=== PATIENT | female | born 1970 | race Caucasian/White ===

== ENCOUNTER → 2018-05-13 09:52 | Outpatient (CLI) | payer MEDICARE, MEDICAID, SELFPAY ==
[2018-05-13 11:32] LABS: AST(SGOT) 12 U/L (15-37); Alanine Aminotransfer ALT/SGPT 20 U/L (13-56); Albumin, Serum 3.1 g/dL (3.2-5.0); Alkaline Phosphatase 86 U/L (45-117); Bilirubin, Direct 0.09 mg/dL (0.00-0.30); Cholesterol 129 mg/dL (200); Globulin 3.7 g/dL (2.2-4.2); High Density Lipoprotein 47 mg/dL; Protein, Total 6.8 g/dL (6.4-8.2); Triglycerides 148 mg/dL; Very Low Density Lipoprotein 30 mg/dL (5-40)
[2018-05-13 12:01] LABS: ALB/GLOB Ratio 0.9 RATIO (0.9-2.4); AST(SGOT) 14 U/L (15-37); Alanine Aminotransfer ALT/SGPT 17 U/L (13-56); Albumin, Serum 3.1 g/dL (3.2-5.0); Alkaline Phosphatase 82 U/L (45-117); Anion Gap 6 (5-15); BUN 26 mg/dL (7-18); BUN/Creat Ratio 16.8 RATIO (10-20); Calcium,Total 8.9 mg/dL (8.5-10.1); Chloride 104 mmol/L (98-107); Creatinine, Serum 1.55 mg/dL (0.55-1.02); EST Glomerular Filtration Rate 38 mL/min (>60); Est Glom Filt Rate - Afr Amer 46 mL/min (>60); Globulin 3.6 g/dL (2.2-4.2); Glucose 233 mg/dL (74-106); Protein, Total 6.7 g/dL (6.4-8.2); Sodium Level 136 mmol/L (136-145); Thyroid Stim Hormone (TSH) 2.44 uIU/mL (0.358-3.74)
[2018-05-15 10:07] LABS: Vitamin D,25 Hydroxy 25.9 ng/mL (29.95-100.01)
== END ==
PROVIDERS: Family Provider Family Medicine; PCP Family Medicine; Visit Provider Internal Medicine Cardiovascular Disease
DX: E10.319 Type 1 diabetes mellitus with unspecified diabetic retinopathy without macular edema (principal); E10.65 Type 1 diabetes mellitus with hyperglycemia; E78.5 Hyperlipidemia, unspecified; Z79.899 Other long term (current) drug therapy
CPT/HCPCS: 36415; 80053; 80061; 80076; 82306; 83036; 84443

== ENCOUNTER 2018-08-11 08:02 | Observation (INO) | payer MEDICARE, SELFPAY ==
[2018-08-11] VITALS (16 sets, daily range): BP systolic 128–155; BP diastolic 58–78; PULSE 77–96; RESP 16–23; TEMP 36.8–37; O2SAT 96–99; BMI 29.7; BMI 28.8
--- NOTE | 2018-08-11 08:09 | EKG12_ITS ---
Test Reason : CP Blood Pressure : / mmHG Vent. Rate : 089 BPM Atrial Rate : 089 BPM P-R Int : 136 ms QRS Dur : 082 ms QT Int : 346 ms P-R-T Axes : 082 -29 166 degrees QTc Int : 420 ms Normal sinus rhythm Possible Left atrial enlargement Possible Anterolateral infarct , age undetermined Abnormal ECG Confirmed by LALO VINCENT, ANGELA ([id number]), editor news ALEIDA RUBALCAVA ([id number]) on 08/14/2018 3:09:34 PM Referred By: Confirmed By:ANGELA MAY MD
--- NOTE | 2018-08-11 08:14 | ED.DCSUM_ITS ---
- ER Visit Summary Date of Service: 08/11/18 Chief Complaint: Chest pain History of Present Illness: The patient is a 47 F presents to the emergency department with intermittent chest pain. The patient's of the symptoms for the past 5 days. She states that last week, she was sweeping her floor. She began to have a mild ache over her left chest. She states it would hurt to touch. She states that has gone away, but she is begun to have a tightness under her left breast. She states it comes in waves. It is relieved with nitro. She states of the same pain that she has had before when she had her prior myocardial infarction. She denies any recent stress test. She denies any change in medications. She denies any recent travel. She denies shortness of breath at baseline. The patient is blind. She does have a history of diabetes. Physical Examination: Vital signs reviewed General: Well-nourished, well-developed Head: Normocephalic, atraumatic Eyes: extraocular muscles intact Neck, supple, no lymphadenopathy Heart: Regular rate and rhythm Respiratory: No distress, clear bilaterally Abdomen: Soft, nontender, nondistended, no peritoneal signs Back: Nontender Extremities: Nontender, no edema, no cords Skin: Normal color no rash Neuro: Alert and oriented, no focal or lateralizing deficits Test Results: [] Emergency Department Course and Treatment: EKG was obtained on patient arrival. There is no acute ischemic change. The old EKG I have to compare to was from STEMI in 2013. It obviously looks improved compared to that. Patient had Nitropaste placed on her chest. She has remained pain-free. She was given aspirin. Chest x-ray shows no evidence of volume overload. Her cardiac enzymes are normal. The patient did have an abnormal heart catheterization in 2014 which showed some distal stenosis that was thought to not be amenable to stenting. She had an abnormal stress test prior to this that led to the heart catheterization. I did discuss the patient with Dr. Coker who is going to see the patient in consultation to determine next best plan of care for cardiac risk stratification. Patient was discussed with the hospitalist will be admitted. Treatment Plan: [] Disposition: Admission Impression: 1. Chest pain with history of coronary vascular disease This note was generated with [employer] software. It may contain incorrect words, spelling, and punctuation that were not noted in review of the chart prior to signing ED Disposition - Plan for ED Patient: Chief Complaint: Chest Pain Referrals: Joni Campo MD [Primary Care Provider] -
[2018-08-11] MEDS: Nitroglycerin Oint 1 INCH PACKET TRANSDERM. (08:18)
[2018-08-11] MEDS: Aspirin 81 MG TAB.CHEW 324 MG PO (08:19)
[2018-08-11 08:27] LABS: Absolute Lymphocyte Count 2.15 X10^3/ul (0.83-4.51); Absolute Neutrophil Count 5.1 X10^3/uL (2.0-7.7); Basophil# 0.06 X10^3/uL; Basophil% 0.7 % (0-1); Eosinophil# 0.14 X10^3/uL; Eosinophils% 1.7 % (0-5); Hematocrit 32.5 % (37-47); Hemoglobin 10.3 g/dl (12.0-15.0); Lymphocyte # 2.15 X10^3/ul (4.0); Lymphocyte % 25.7 % (19-41); Mean Corp Hgb Conc 31.7 g/gl (32-36); Mean Corpuscular Hgb 25.1 pg (27.0-32.0); Mean Corpuscular Volume 79.3 fL (81-99); Mean Platelet Vol. 11.3 fl (6.2-12.0); Monocyte# 0.91 X10^3/uL; Monocyte% 10.9 % (0-10); Neutrophil # 5.09 X10^3/uL (2.7-7.7); Neutrophil % 60.9 % (47-70); POSITIVE COUNT NO; POSITIVE DIFFERENTIAL NO; POSITIVE MORPHOLOGY NO; Platelet Count 271 K/mm3 (150-450); RBC Distribution Width CV 15.6 % (11.6-14.6); RBC Distribution Width SD 44.6 fl (35.1-43.9); White Blood Count 8.4 K/mm3 (4.4-11.0)
--- NOTE | 2018-08-11 08:30 | RAD_ITS ---
STUDY: X-RAY CHEST REASON FOR EXAM: Female, 47 years old. Chest pain. TECHNIQUE: Single AP portable view of the chest. COMPARISON: Comparison is made with prior study dated February 17, 2015. FINDINGS: EKG electrodes are seen. The lungs are clear and expanded. There is no demonstrated pleural abnormality. Normal size heart. Normal mediastinum and michael. Normal visualized pulmonary arteries. Normal visualized aortic arch and descending thoracic aorta. Normal visualized thoracic spine. Normal visualized ribs, clavicles, and shoulders. There is no demonstrated abnormality of the visualized soft tissue structures of the upper abdomen. RAD/Chest 1 View (Portable) IMPRESSION: Normal x-ray examination of the chest. Electronically Signed: Akash Sarabia MD at 8:59 EDT Tel [phone], Service support ,
[2018-08-11 08:39] LABS: BUN 24 mg/dL (7-18); Creatinine, Serum 1.66 mg/dL (0.55-1.02); EST Glomerular Filtration Rate 35 mL/min (>60); Estimated Creatinine Clearance 41.81 ml/min; Glucose 171 mg/dL (74-106)
[2018-08-11 08:40] LABS: Anion Gap 9 (5-15); BUN/Creat Ratio 14.5 RATIO (10-20); Calcium,Total 8.6 mg/dL (8.5-10.1); Chloride 108 mmol/L (98-107); Est Glom Filt Rate - Afr Amer 42 mL/min (>60); Sodium Level 141 mmol/L (136-145)
--- NOTE | 2018-08-11 09:09 | NURSING ---
DENZELU OBS SHAHBAZ LANDIN
--- NOTE | 2018-08-11 09:59 | EKG12_ITS ---
Test Reason : CP Blood Pressure : / mmHG Vent. Rate : 095 BPM Atrial Rate : 095 BPM P-R Int : 136 ms QRS Dur : 084 ms QT Int : 362 ms P-R-T Axes : 034 -18 045 degrees QTc Int : 454 ms Normal sinus rhythm Cannot rule out Anterior infarct , age undetermined Abnormal ECG Confirmed by LALO VINCENT, ANGELA ([id number]), design editor ALEIDA RUBALCAVA ([id number]) on 08/14/2018 3:54:09 PM Referred By: MUSHTAQ Confirmed By:ANGELA MAY MD
--- NOTE | 2018-08-11 11:24 | PCM.CONS.C ---
Reason for Consult Date of Consultation: 08/11/18 Reason for Consultation: Chest discomfort History of Present Illness: LAURA FIGUEROA, is a 47 F who presents to the emergency room with complaints of left-sided chest pain. She said that she had been active with sweeping the floor and she started developing chest discomfort which has been going on for a few days. She describes as a heaviness not associated with any dizziness or diaphoresis no near syncope. She presented to the emergency room she was evaluated EKG was noted to be fairly normal. Since being admitted she has not had any further chest discomfort. She was last seen by her primary zone supervisor firearms a few months ago. Her last transthoracic echocardiogram was performed on 02/14/2015. At that time her LV was normal with an LVEF of 65% with trivial MR, TR, and a trivial pericardial effusion with no tamponade physiology. Her estimated RV systolic pressure was 24 mmHg. He had decreased diastolic compliance. She underwent a pharmacologic stress nuclear imaging study that same day. There were concerns of myocardial ischemia involving the inferior apical and lateral apical segments. Her gated LVEF was 78%. She underwent a diagnostic cardiac catheterization on 02/19/2015 [facility]. A left ventriculogram was not performed secondary to decreased renal function/chronic renal insufficiency. The left main coronary artery was normal. The LAD had a distal apical-very small caliber vessel-with the appearance of 85% appearing stenosis, the LCx had minimal luminal irregularities, the RCA had a proximal to mid stented segment which was patent with the appearance of 25% distal in-stent appearing stenosis in the right AV segment had minimal luminal irregularities in the right PDA had mid 25% stenosis. There was a very small caliber side branch demonstrating proximal and mid subtotal occlusion. The recommendation was for continued medical management. Her previous PTCA/stent was performed at [facility] on 01/23/2014. At that time she had a report of successful stenting of an 80% mid RCA lesion with a drug-eluting stent and successful angioplasty of a 90% ostial stenosis in the proximal PDA. At the present time she states she is feeling well. She is not complaining of angina pectoris. She has had no ongoing episodes of CHF or pulmonary edema. There has been no issues with respect to episodes of palpitations. There has been no near syncope or syncope. She states she is doing well. Past Medical History Allergies/Adverse Reactions: Allergies adhesive tape Allergy (Severe, Verified 08/11/18 08:21) Unknown ephedrine [Ephedrine] Allergy (Verified 08/11/18 08:21) Other Home Medications: Ambulatory Orders Medication Instructions Recorded Aspirin [Aspirin, Baby] 81 mg PO DAILY@0800 02/18/15 Atorvastatin Calcium [Lipitor] 80 mg PO QHS 02/18/15 Colchicine 0.6 mg PO X1 PRN 02/18/15 Glucagon 0.5 mg IM X1 PRN 02/18/15 Grape Seed Extract [Grape Seed] 25 mg PO DAILY 02/18/15 Levothyroxine Sodium [Levoxyl] 112 mcg PO DAILY 02/18/15 Magnesium 500 mg PO DAILY 02/18/15 Nitroglycerin [Nitrostat] 0.4 mg SUBLINGUAL Q5M PRN 02/18/15 Norethindrone [Nor-Q-D] 1 tab PO DAILY 02/18/15 insulin aspart U-100 100 unit/mL See Label Instructions SC TID ml 12/12/17 subcutaneous solution linagliptin 5 mg tablet 5 mg PO DAILY 12/12/17 clopidogrel 75 mg tablet 75 mg PO DAILY #90 tab 03/28/18 lisinopril 2.5 mg tablet 2.5 mg PO DAILY #90 tab 05/10/18 carvedilol 6.25 mg tablet 6.25 mg PO BID #180 tab 06/27/18 Cholecalciferol (VIT D3) [Vitamin 1,000 unit PO DAILY 08/11/18 D] Insulin Degludec [Tresiba 40 unit SQ DAILY 08/11/18 Flextouch U-200] Past Medical History (Chronic Problems): Chronic Problems (Last Updated 05/23/18 @ 16:33 by Cinda Rosario) HTN (hypertension) (Chronic) BP 126/64 No change in regimen Smoking Status: Never smoker Alcohol: None Drugs: None Review of Systems - Review of Systems General: Denies: Fever, Night Sweats, Fatigue Cardiovascular: Reports: Chest Discomfort, Chest Discomfort at Rest. Denies: Shortness of Breath, Orthopnea, PND, Peripheral Edema, Palpitations, Lightheadedness, Dizziness, Near Syncope, Syncope Respiratory: Denies: Cough, Sputum Production, Hemoptysis Gastrointestinal: Denies: Hematemesis, Hematochezia, Melena Genitourinary: Denies: Dysuria, Hematuria Skin: Denies: Rash Subjectve: Pleasant lady in no apparent distress Objective: Vital Signs Temp Pulse Resp BP Pulse Ox 98.2 F 91 16 136/71 H 98 08/11/18 10:05 08/11/18 11:15 08/11/18 10:05 08/11/18 10:05 08/11/18 10:05 Oxygen Delivery Method Room Air Weight: 189 lb 9.561 oz Body Mass Index (BMI) 28.8 General: Awake, Alert, Oriented x 3 HEENT: PERRL, EOMI, Sclera Non Icteric Neck: Supple, Good ROM, No Lymph Node Enlargement Lungs: Clear to auscultation Cardiovascular: Regular Rhythm, Normal S1, Normal S2, No Murmurs, No Rubs, No Gallops Vascular: No Carotid Bruits, Normal Femoral Pulses, Normal Radial Pulses, Normal Dorsalis Pedal Pulse, Normal Posterior Tibial Pulses Abdomen: Bowel Sounds Present, Soft, Non Tender, No HSM, No Organomegaly Extremities: No Cyanosis, No Clubbing, No edema Neurological: No Focal Motor or Sensory Deficit Rhythm: EKG: Normal sinus rhythm rate of 95 bpm and no acute changes Assessment/Plan 1. Chest pain. Ms. Pepper presents with recurrent chest discomfort. She has had previously abnormal stress test and she feels that this chest pain was similar to what she had in the past. Due to her previous abnormal stress test it is felt that repeating the stress test may generate another abnormality which may require that she undergo a repeat cardiac catheterization. After discussion with the patient was therefore felt that we should probably proceed with cardiac catheterization to reassess her coronary anatomy and depending on the findings further recommendations will be made. The patient is in agreement with the above will be performed via the radial approach. Cardiac catheterization today demonstrated the following: Normal left main coronary artery. Left anterior descending artery with moderate mid segment stenosis of approximately 50% in comparison to the previous cardiac catheterization from 2015 the above is essentially unchanged. Left circumflex artery with first obtuse marginal branch which bifurcates with mild luminal irregularities, and AV groove branch and distal trifurcating artery noted to be free of significant stenosis. Dominant right coronary artery with a main vessel demonstrating minimal coronary artery disease. An acute marginal branch which is small has 2 areas of 80% stenosis which is unchanged in comparison to before 2. Hypertension Patient has a history of known hypertension. At this time I recommend that we continue with the current medical therapy with no changes. 3. Hyperlipidemia We will continue with aggressive risk factor modification and lowering her lipid profile. Thank you for allowing me to participate in the care of your patient. Please don't hesitate to call if any issues arise
[2018-08-11 11:41] LABS: Bedside Glucose 181 mg/dL (70-110)
[2018-08-11] MEDS: 0.9% Normal Saline 1,000 ML 15 ML IV (11:42)
[2018-08-11 12:26] LABS: Pregnancy, Serum, hCG Quali. NEGATIVE Negative (0-9 Nonpreg)
--- NOTE | 2018-08-11 14:25 | CL.D_ITS ---
Patient Name: LAURA FIGUEROA Study Date: 08/11/2018 Performing: Gamal Coker MD Ht: 68 inches 173 cm : 1970 Wt: 189.8 lbs 86 kg Age: 47 Gender: female BSA: 2 PROCEDURE(S) PERFORMED [id number] CLINICAL PROFILE AND INDICATIONS Heart Failure: None CONCLUSIONS Mooderate CAD bof LAD and RCA unchanged from 2015 RECOMMENDATIONS Medical therapy DESCRIPTION OF PROCEDURE The patient arrived to the procedure lab. The risks and benefits of the procedure as well as a full d escription of our services here and current unavailability of surgical backup were fully explained to the patient and/or their significant other prior to the catheterization. The Timeout was completed, verifying the correct patient and procedure. The patient's procedural site was prepped and draped in the usual fashion. Local anesthetic was given subcutaneously to right radial region with Lidocaine 2% . Using a modified Seldinger technique, arterial access was obtained via the right radial artery, a 6 Fr sheath was inserted. Right Coronary Artery selective angiography was then performed in [facility] using a 5 Fr. 4.0 Kake catheter.The arterial sheath was pulled and a TR Band was applied for he mostasis CORONARY ANGIOGRAPHY DOMINANCE: Right Dominant LEFT HEART ASSESSMENT Left Ventricular Ejection Fraction: Not assessed LEFT MAIN: Angiographically normal LEFT ANTERIOR DECENDING ARTERY: PROX LAD: Mild luminal irregularities MID LAD: Moderate luminal irregularities up to 50% DISTAL LAD: Mild luminal irregularities CIRCUMFLEX ARTERY: Mild luminal irregularities less than 30% RIGHT CORONARY ARTERY: Mild luminal irregularities ACUTE MARGINAL: sequential 90 pct stenosis COMPLICATIONS No Complications PROCEDURE MEDICATIONS Fentanyl 50 mcg IV Versed 1 mg IV Oxygen: 2 L/min via nasal cannula Heparin diluted in 23cc Heparinized saline. Patient given 10cc IA of this solution. 08/11/2018 12:41: 40 Verapamil 2.5mg, Ntg 100mcgs, 2000 units of Heparin diluted in 23cc Heparinized saline. Patient give n 10cc IA of this solution. 08/11/2018 12:41:40 IV Fluids: .9 NaCl increased to 150 ml/hr 08/11/2018 12:38:02 SUMMARY OF HEMODYNAMIC DATA Time AIR REST ECG 12:23:43 AO 127/64 (90) SA 12:43:34 Signed By Gamal Coker MD On 08/11/2018 14:24:21 Gamal Coker MD
--- NOTE | 2018-08-11 15:46 | PCM.HP.STD ---
History of Present Illness Date of Admission: 08/11/18 Chief Complaint: chest discomfort The patient is a 47 year old F with DM2, stage III CKD and CAD with h/o angioplasty and stents. Presented to the hospital with a few days h/o chest pain/discomfort on and off and which responded to nitroglycerine. There was no orthopnea or PND. No dizziness, nausea or vomiting. Cardiology has been consulted[] Past Medical History Past Medical History (Chronic Problems): Chronic Problems (Last Updated 05/23/18 @ 16:33 by Cinda Rosario) HTN (hypertension) (Chronic) BP 126/64 No change in regimen Medical History: Medical History (Last Updated 05/23/18 @ 16:33 by Cinda Rosario) Presence of stent in coronary artery (Acute) Onset Date: ~01/23/14 Z95.5 PTCA/MARCUS to mid RCA; angioplasty of prox PDA 01/23/[address] Glenn Merino at [facility] Atherosclerotic heart disease of [place] coronary artery without angina pectoris (Acute) I25.10 angioplasty to LAD; no stent @ [facility] 11/08/13; PTCA/MARCUS to mid RCA; angioplasty of prox PDA @ [facility] 01/23/14 Pericarditis (Acute) I31.9 ST elevation myocardial infarction (STEMI) of anterior wall (Acute) I21.09 Chronic kidney disease (Acute) N18.9 Hypothyroidism (Acute) E03.9 Hyperlipidemia (Acute) E78.5 Controlled. No change. 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 Allergies adhesive tape Allergy (Severe, Verified 08/11/18 08:21) Unknown ephedrine [Ephedrine] Allergy (Verified 08/11/18 08:21) Other Home Medications: Ambulatory Orders Medication Instructions Recorded Aspirin [Aspirin, Baby] 81 mg PO DAILY@0800 02/18/15 Atorvastatin Calcium [Lipitor] 80 mg PO QHS 02/18/15 Colchicine 0.6 mg PO X1 PRN 02/18/15 Glucagon 0.5 mg IM X1 PRN 02/18/15 Grape Seed Extract [Grape Seed] 25 mg PO DAILY 02/18/15 Levothyroxine Sodium [Levoxyl] 112 mcg PO DAILY 02/18/15 Magnesium 500 mg PO DAILY 02/18/15 Nitroglycerin [Nitrostat] 0.4 mg SUBLINGUAL Q5M PRN 02/18/15 Norethindrone [Nor-Q-D] 1 tab PO DAILY 02/18/15 insulin aspart U-100 100 unit/mL See Label Instructions SC TID ml 12/12/17 subcutaneous solution linagliptin 5 mg tablet 5 mg PO DAILY 12/12/17 clopidogrel 75 mg tablet 75 mg PO DAILY #90 tab 03/28/18 lisinopril 2.5 mg tablet 2.5 mg PO DAILY #90 tab 05/10/18 carvedilol 6.25 mg tablet 6.25 mg PO BID #180 tab 06/27/18 Cholecalciferol (VIT D3) [Vitamin 1,000 unit PO DAILY 08/11/18 D] Insulin Degludec [Tresiba 40 unit SQ DAILY 08/11/18 Flextouch U-200] Surgical History: Surgical History (Last Reviewed 12/21/17 @ 16:26 by Wanda Schaffer) H/O angioplasty Z98.62 H/O breast augmentation Z98.82 H/O vitrectomy Z98.890 H/O: Z98.891 History of coronary angioplasty Onset Date: ~11/08/13 Z98.61 angioplasty to LAD; no stent @ [facility] 11/08/13 History of left heart catheterization Z98.890 History of tonsillectomy Z98.890, Z90.89 S/P appendectomy Z90.49 Smoking Status: Never smoker Alcohol: None Drugs: None Review of Systems Eyes: Reports: - - blindness HEENT: Denies: Difficulty Hearing Cardiovascular: Reports: Chest Pain. Denies: Edema Respiratory: Denies: Cough Gastrointestinal: Denies: Abdominal Pain Neurological: Denies: Balance problems Hematologic/ Lymphatic: Denies: Petechiae VTE Information - Inpt Only VTE Present on Admission: Yes - Physical Exam General: Alert, Oriented x3, Cooperative, No apparent distress, Well developed, Well nourished HEENT: Atraumatic Oral: Moist Mucosa Neck: Supple Lungs: - - non labored Abdomen: - - MWR Extremities: No edema Skin: No rashes Neurological: Cranial nerves II-XII grossly intact, Neuro grossly intact Psych/Mental Status: Normal Affect, Appropriate, Alert and oriented to time, place, person, mood and affect Vital Signs Temp Pulse Resp BP Pulse Ox 98.3 F 83 16 141/69 H 99 08/11/18 15:10 08/11/18 15:40 08/11/18 15:40 08/11/18 15:40 08/11/18 15:40 Oxygen Delivery Method Room Air Weight: 86 kg Body Mass Index (BMI) 28.8 POC Glucose 08/11/18 11:27 POC Glucose 181 H Assessment/Plan All Active Problems (Last Updated 05/23/18 @ 16:33 by Cinda Rosario) Presence of stent in coronary artery (Acute ~01/23/14) Atherosclerotic heart disease of [place] coronary artery without angina pectoris (Acute) Pericarditis (Acute) ST elevation myocardial infarction (STEMI) of anterior wall (Acute) Chronic kidney disease (Acute) Hypothyroidism (Acute) Hyperlipidemia (Acute) Diabetes type 1, controlled (Acute) 1. Chest pain. Possible unstable angina. Cardiology has been consulted and plans to take patient for left hear cath. Pain free at this time and will continue on tele 2. DM2. Will resume home regimen of insulin. Will give basal insulin now but hold Humalog until patient starts and is allowed to eat 3. Stage III CKD. 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
--- NOTE | 2018-08-11 15:51 | HP.PCM_ITS ---
History of Present Illness Date of Admission: 08/11/18 Chief Complaint: chest discomfort The patient is a 47 year old F with DM2, stage III CKD and CAD with h/o angioplasty and stents. Presented to the hospital with a few days h/o chest pain /discomfort on and off and which responded to nitroglycerine. There was no orthopnea or PND. No dizziness, nausea or vomiting. Cardiology has been consulted[] Past Medical History Past Medical History (Chronic Problems): Chronic Problems (Last Updated 05/23/18 @ 16:33 by Cinda Rosario) HTN (hypertension) (Chronic) BP 126/64 No change in regimen Medical History: Medical History (Last Updated 05/23/18 @ 16:33 by Cinda Rosario) Presence of stent in coronary artery (Acute) Onset Date: ~01/23/14 Z95.5 PTCA/MARCUS to mid RCA; angioplasty of prox PDA 01/23/[address] Glenn Merino at [facility] Atherosclerotic heart disease of pauma coronary artery without angina pectoris (Acute) I25.10 angioplasty to LAD; no stent @ [facility] 11/08/13; PTCA/MARCUS to mid RCA; angioplasty of prox PDA @ [facility] 01/23/14 Pericarditis (Acute) I31.9 ST elevation myocardial infarction (STEMI) of anterior wall (Acute) I21.09 Chronic kidney disease (Acute) N18.9 Hypothyroidism (Acute) E03.9 Hyperlipidemia (Acute) E78.5 Controlled. No change. 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 Allergies adhesive tape Allergy (Severe, Verified 08/11/18 08:21) Unknown ephedrine [Ephedrine] Allergy (Verified 08/11/18 08:21) Other Home Medications: Ambulatory Orders Medication Instructions Recorded Aspirin [Aspirin, Baby] 81 mg PO DAILY@0800 02/18/15 Atorvastatin Calcium [Lipitor] 80 mg PO QHS 02/18/15 Colchicine 0.6 mg PO X1 PRN 02/18/15 Glucagon 0.5 mg IM X1 PRN 02/18/15 Grape Seed Extract [Grape Seed] 25 mg PO DAILY 02/18/15 Levothyroxine Sodium [Levoxyl] 112 mcg PO DAILY 02/18/15 Magnesium 500 mg PO DAILY 02/18/15 Nitroglycerin [Nitrostat] 0.4 mg SUBLINGUAL Q5M PRN 02/18/15 Norethindrone [Nor-Q-D] 1 tab PO DAILY 02/18/15 insulin aspart U-100 100 unit/mL See Label Instructions SC TID ml 12/12/17 subcutaneous solution linagliptin 5 mg tablet 5 mg PO DAILY 12/12/17 clopidogrel 75 mg tablet 75 mg PO DAILY #90 tab 03/28/18 lisinopril 2.5 mg tablet 2.5 mg PO DAILY #90 tab 05/10/18 carvedilol 6.25 mg tablet 6.25 mg PO BID #180 tab 06/27/18 Cholecalciferol (VIT D3) [Vitamin 1,000 unit PO DAILY 08/11/18 D] Insulin Degludec [Tresiba 40 unit SQ DAILY 08/11/18 Flextouch U-200] Surgical History: Surgical History (Last Reviewed 12/21/17 @ 16:26 by Wanda Schaffer) H/O angioplasty Z98.62 H/O breast augmentation Z98.82 H/O vitrectomy Z98.890 H/O: Z98.891 History of coronary angioplasty Onset Date: ~11/08/13 Z98.61 angioplasty to LAD; no stent @ [facility] 11/08/13 History of left heart catheterization Z98.890 History of tonsillectomy Z98.890, Z90.89 S/P appendectomy Z90.49 Smoking Status: Never smoker Alcohol: None Drugs: None Review of Systems Eyes: Reports: - - blindness HEENT: Denies: Difficulty Hearing Cardiovascular: Reports: Chest Pain. Denies: Edema Respiratory: Denies: Cough Gastrointestinal: Denies: Abdominal Pain Neurological: Denies: Balance problems Hematologic/ Lymphatic: Denies: Petechiae VTE Information - Inpt Only VTE Present on Admission: Yes - Physical Exam General: Alert, Oriented x3, Cooperative, No apparent distress, Well developed, Well nourished HEENT: Atraumatic Oral: Moist Mucosa Neck: Supple Lungs: - - non labored Abdomen: - - MWR Extremities: No edema Skin: No rashes Neurological: Cranial nerves II-XII grossly intact, Neuro grossly intact Psych/Mental Status: Normal Affect, Appropriate, Alert and oriented to time, place, person, mood and affect Vital Signs Temp Pulse Resp BP Pulse Ox 98.3 F 83 16 141/69 H 99 08/11/18 15:10 08/11/18 15:40 08/11/18 15:40 08/11/18 15:40 08/11/18 15:40 Oxygen Delivery Method Room Air Weight: 86 kg Body Mass Index (BMI) 28.8 POC Glucose 08/11/18 11:27 POC Glucose 181 H Assessment/Plan All Active Problems (Last Updated 05/23/18 @ 16:33 by Cinda Rosario) Presence of stent in coronary artery (Acute ~01/23/14) Atherosclerotic heart disease of pauma coronary artery without angina pectoris (Acute) Pericarditis (Acute) ST elevation myocardial infarction (STEMI) of anterior wall (Acute) Chronic kidney disease (Acute) Hypothyroidism (Acute) Hyperlipidemia (Acute) Diabetes type 1, controlled (Acute) 1. Chest pain. Possible unstable angina. Cardiology has been consulted and plans to take patient for left hear cath. Pain free at this time and will continue on tele 2. DM2. Will resume home regimen of insulin. Will give basal insulin now but hold Humalog until patient starts and is allowed to eat 3. Stage III CKD. 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
--- NOTE | 2018-08-11 15:58 | DCINST_ITS ---
- Discharge Diagnoses Current Active Problems: chest pain Discharge Activity: Return to Normal Activity, No Restrictions Allergies/Adverse Reactions: Allergies adhesive tape Allergy (Severe, Verified 08/11/18 08:21) Unknown ephedrine [Ephedrine] Allergy (Verified 08/11/18 08:21) Other Medications to take at Discharge Aspirin [Aspirin, Baby] 81 mg PO DAILY@0800 02/18/15 Atorvastatin Calcium [Lipitor] 80 mg PO QHS 02/18/15 Colchicine 0.6 mg PO X1 PRN 02/18/15 Glucagon 0.5 mg IM X1 PRN 02/18/15 Grape Seed Extract [Grape Seed] 25 mg PO DAILY 02/18/15 Levothyroxine Sodium [Levoxyl] 112 mcg PO DAILY 02/18/15 Magnesium 500 mg PO DAILY 02/18/15 Nitroglycerin [Nitrostat] 0.4 mg SUBLINGUAL Q5M PRN 02/18/15 Norethindrone [Nor-Q-D] 1 tab PO DAILY 02/18/15 insulin aspart U-100 100 unit/mL subcutaneous solution See Label Instructions SC TID ml 12/12/17 linagliptin 5 mg tablet 5 mg PO DAILY 12/12/17 clopidogrel 75 mg tablet 75 mg PO DAILY #90 tab 03/28/18 lisinopril 2.5 mg tablet 2.5 mg PO DAILY #90 tab 05/10/18 carvedilol 6.25 mg tablet 6.25 mg PO BID #180 tab 06/27/18 Cholecalciferol (VIT D3) [Vitamin D] 1,000 unit PO DAILY 08/11/18 Insulin Degludec [Tresiba Flextouch U-200] 40 unit SQ DAILY 08/11/18 Primary Care Physician: Joni Campo MD [Primary Care Provider] - Test Results: Test results from this visit will be discussed in further detail at your follow- up appointment, if applicable. Proposed Discharge Date: 08/11/18
--- NOTE | 2018-08-11 16:01 | PCM.DC.SUM ---
Discharge Date and Diagnosis Date of Admission: 08/11/18 Date of Discharge: 08/11/18 - Primary Discharge Diagnosis Chest pain - Secondary Discharge Diagnosis Chronic Problems (Last Updated 05/23/18 @ 16:33 by Cinda Rosario) HTN (hypertension) (Chronic) BP 126/64 No change in regimen Stage III CKD CAD s/p stents DM2 with microvascular complications Hospital Course and Treatment Operations: None Procedures: Cardiac catheterization Summary of Care Provided: The patient is a 47 year old F with h/o CAD who was admitted on account of recurrent chest pain and chest discomfort. Suspected to be having unstable angina and so cardiology was consulted. Given very high pretest probability for ACS patient underwent left heart catheterization by her automation control integrator Dr. Coker. Thankfully this only revealed stable moderate degree CAD in the LAD and RCA similar to previous [facility] in 2015 and patent intracoronary stents. cardiology has given the ok for patient to be discharged. Newly added medicine is Isosorbide mononitrate [] Discharge Diet: 2200 Calorie Control Diet Discharge Activity: Return to Normal Activity, No Restrictions Home Medications: Medications to take at Discharge Aspirin [Aspirin, Baby] 81 mg PO DAILY@0800 02/18/15 Atorvastatin Calcium [Lipitor] 80 mg PO QHS 02/18/15 Colchicine 0.6 mg PO X1 PRN 02/18/15 Glucagon 0.5 mg IM X1 PRN 02/18/15 Grape Seed Extract [Grape Seed] 25 mg PO DAILY 02/18/15 Levothyroxine Sodium [Levoxyl] 112 mcg PO DAILY 02/18/15 Magnesium 500 mg PO DAILY 02/18/15 Nitroglycerin [Nitrostat] 0.4 mg SUBLINGUAL Q5M PRN 02/18/15 Norethindrone [Nor-Q-D] 1 tab PO DAILY 02/18/15 insulin aspart U-100 100 unit/mL subcutaneous solution See Label Instructions SC TID ml 12/12/17 linagliptin 5 mg tablet 5 mg PO DAILY 12/12/17 clopidogrel 75 mg tablet 75 mg PO DAILY #90 tab 03/28/18 lisinopril 2.5 mg tablet 2.5 mg PO DAILY #90 tab 05/10/18 carvedilol 6.25 mg tablet 6.25 mg PO BID #180 tab 06/27/18 Cholecalciferol (VIT D3) [Vitamin D3] 1,000 unit PO DAILY 08/11/18 Insulin Degludec [Tresiba Flextouch U-200] 40 unit SQ DAILY 08/11/18 Isosorbide Mononitrate [Imdur] 30 mg PO DAILY 30 Days #30 tab 08/11/18 Following Prescrptions Were Given to Patient: Isosorbide Mononitrate [Imdur] 30 mg PO DAILY 30 Days #30 tab Primary Care Physician: Joni Campo MD [Primary Care Provider] - Disposition: Home Minutes spent on discharge:: 30 Patient Condition:: Good Medical Necessity - Tobacco Use Smoking Status: Never smoker Meaningful Use Info Meaningful Use Diagnoses (Choose all that apply): None applicable Code Visit OBSV E&M: 05010 Observation care discharge
--- NOTE | 2018-08-11 16:07 | DS.PCM_ITS ---
Discharge Date and Diagnosis Date of Admission: 08/11/18 Date of Discharge: 08/11/18 - Primary Discharge Diagnosis Chest pain - Secondary Discharge Diagnosis Chronic Problems (Last Updated 05/23/18 @ 16:33 by Cinda Rosario) HTN (hypertension) (Chronic) BP 126/64 No change in regimen Stage III CKD CAD s/p stents DM2 with microvascular complications Hospital Course and Treatment Operations: None Procedures: Cardiac catheterization Summary of Care Provided: The patient is a 47 year old F with h/o CAD who was admitted on account of recurrent chest pain and chest discomfort. Suspected to be having unstable angina and so cardiology was consulted. Given very high pretest probability for ACS patient underwent left heart catheterization by her chemical laboratory tester Dr. Coker. Thankfully this only revealed stable moderate degree CAD in the LAD and RCA similar to previous [facility] in 2015 and patent intracoronary stents. cardiology has given the ok for patient to be discharged. Newly added medicine is Isosorbide mononitrate [] Discharge Diet: 2200 Calorie Control Diet Discharge Activity: Return to Normal Activity, No Restrictions Home Medications: Medications to take at Discharge Aspirin [Aspirin, Baby] 81 mg PO DAILY@0800 02/18/15 Atorvastatin Calcium [Lipitor] 80 mg PO QHS 02/18/15 Colchicine 0.6 mg PO X1 PRN 02/18/15 Glucagon 0.5 mg IM X1 PRN 02/18/15 Grape Seed Extract [Grape Seed] 25 mg PO DAILY 02/18/15 Levothyroxine Sodium [Levoxyl] 112 mcg PO DAILY 02/18/15 Magnesium 500 mg PO DAILY 02/18/15 Nitroglycerin [Nitrostat] 0.4 mg SUBLINGUAL Q5M PRN 02/18/15 Norethindrone [Nor-Q-D] 1 tab PO DAILY 02/18/15 insulin aspart U-100 100 unit/mL subcutaneous solution See Label Instructions SC TID ml 12/12/17 linagliptin 5 mg tablet 5 mg PO DAILY 12/12/17 clopidogrel 75 mg tablet 75 mg PO DAILY #90 tab 03/28/18 lisinopril 2.5 mg tablet 2.5 mg PO DAILY #90 tab 05/10/18 carvedilol 6.25 mg tablet 6.25 mg PO BID #180 tab 06/27/18 Cholecalciferol (VIT D3) [Vitamin D3] 1,000 unit PO DAILY 08/11/18 Insulin Degludec [Tresiba Flextouch U-200] 40 unit SQ DAILY 08/11/18 Isosorbide Mononitrate [Imdur] 30 mg PO DAILY 30 Days #30 tab 08/11/18 Following Prescrptions Were Given to Patient: Isosorbide Mononitrate [Imdur] 30 mg PO DAILY 30 Days #30 tab Primary Care Physician: Joni Campo MD [Primary Care Provider] - Disposition: Home Minutes spent on discharge:: 30 Patient Condition:: Good Medical Necessity - Tobacco Use Smoking Status: Never smoker Meaningful Use Info Meaningful Use Diagnoses (Choose all that apply): None applicable Code Visit OBSV E&M: 87123 Observation care discharge
== END 2018-08-11 17:38 | disposition home or self-care (01) ==
LOC: ED 09:03 → PCU 09:32
PROVIDERS: Internal Medicine Cardiovascular Disease; Admitting Provider Internal Medicine; Emergency Provider Emergency Medicine; Family Provider Family Medicine; PCP Family Medicine; Visit Provider Internal Medicine
DX: R07.89 Other chest pain (principal); I10 Essential (primary) hypertension; E78.5 Hyperlipidemia, unspecified; I25.10 Atherosclerotic heart disease of native coronary artery without angina pectoris; E11.22 Type 2 diabetes mellitus with diabetic chronic kidney disease; I12.9 Hypertensive chronic kidney disease with stage 1 through stage 4 chronic kidney disease, or unspecified chronic kidney disease; N18.3 Chronic kidney disease, stage 3 (moderate); M06.9 Rheumatoid arthritis, unspecified; E11.319 Type 2 diabetes mellitus with unspecified diabetic retinopathy without macular edema; F41.9 Anxiety disorder, unspecified; Z79.899 Other long term (current) drug therapy; Z79.82 Long term (current) use of aspirin; Z79.4 Long term (current) use of insulin; Z95.5 Presence of coronary angioplasty implant and graft; R94.31 Abnormal electrocardiogram [ECG] [EKG]
CPT/HCPCS: 71045; 80048; 82962; 84484; 84703; 85025; 93005; 93454; 99152; 99153; 99218; 99282; J7030; Q9967; A4216; C1769; C1894; G0378

== ENCOUNTER → 2018-09-28 16:12 | Outpatient (CLI) | payer MEDICARE, SELFPAY ==
--- NOTE | 2018-09-28 16:13 | ECHOD_ITS ---
Reason For Study: MURMUR Procedure This was a 2D Doppler, Color Flow transthoracic echocardiogram. The exam was of poor technical quality due to poor acoustic windows. The study was technically difficult. Exam performed in department. Left Ventricle Normal LV size. Left ventricular systolic function is normal. The estimated ejection fraction is 70 %. There is evidence of diastolic dysfunction. No regional wall motion abnormalities noted. Right Ventricle Normal RV size. Normal systolic function. Atria Normal left atrium. Normal right atrium. No doppler evidence for ASD. Mitral Valve There is mild mitral annular calcification. Normal mitral valve. Trivial mitral valve insufficiency. Tricuspid Valve Normal tricuspid valve. Trivial tricuspid valve insufficiency. Right ventricular systolic pressure estimated to be 40 mmHg. Aortic Valve Trisinus/trileaflet aortic valve. Normal aortic valve. Pulmonic Valve The pulmonic valve is not well visualized. Trivial pulmonic valve insufficiency. Great Vessels Normal sized aortic root. Pericardium/Pleural No pericardial effusion. MMode/2D Measurements & Calculations LVIDd: 5.0 cm IVSd: 1.0 cm Ao root diam: 3.3 cm LVIDs: 3.1 cm LVPWd: 0.98 cm RVDd: 3.2 cm FS: 38.1 % LAV(MOD-bp): 56.8 ml EDV(MOD-sp4): 99.4 ml SV(MOD-sp4): 69.8 ml LAV(MOD-bp) Indexed: 28.4 ml/m2 ESV(MOD-sp4): 29.6 ml LAV(MOD-sp2): 63.1 ml EF(MOD-sp4): 70.2 % LAV(MOD-sp4): 50.0 ml LA A4 area: 18.3 cm2 LA dimension(2D): 4.0 cm RA A4 area: 13.5 cm2 Time Measurements MV dec time: 0.24 sec Doppler Measurements & Calculations MV E max chase: 135.4 cm/sec Lat Peak E' Chase: 7.2 cm/sec Med Peak E' Chase: 6.6 cm/sec MV A max chase: 129.0 cm/sec E/E' lat: 18.7 E/E' med: 20.4 MV E/A: 1.1 MV V2 max: 144.2 cm/sec Ao V2 max: 280.5 cm/sec LV V1 max: 162.5 cm/sec MV max P.3 mmHg Ao max P.5 mmHg LV V1 max P.6 mmHg MV V2 mean: 100.2 cm/sec Ao V2 mean: 210.5 cm/sec LV V1 mean P.9 mmHg MV mean P.4 mmHg Ao mean P.1 mmHg LV V1 mean: 115.7 cm/sec MV V2 VTI: 35.6 cm Ao V2 VTI: 59.8 cm LV V1 VTI: 33.7 cm PA V2 max: 139.8 cm/sec TR max chase: 303.6 cm/sec MV P1/2t-pr_phl: 77.5 msec TR max P.1 mmHg Interpretation Summary The study was technically difficult. Left ventricular systolic function is normal. The estimated ejection fraction is 70 %. There is mild mitral annular calcification. Trivial mitral valve insufficiency. Trivial tricuspid valve insufficiency. Trivial pulmonic valve insufficiency. Right ventricular systolic pressure estimated to be 40 mmHg. There is evidence of diastolic dysfunction. Ordering Physician: Sanford Dave Referring Physician: LINDSEY TRENT Performed By: Marina Felix, RDCS, RVT
== END ==
PROVIDERS: Family Provider Family Medicine; PCP Family Medicine; Referring Provider Internal Medicine Cardiovascular Disease; Visit Provider Internal Medicine Cardiovascular Disease
DX: I25.10 Atherosclerotic heart disease of native coronary artery without angina pectoris (principal)
CPT/HCPCS: 93306

== ENCOUNTER → 2018-10-03 12:15 | Outpatient (CLI) | payer MEDICARE, SELFPAY ==
--- NOTE | 2018-10-03 12:20 | CT_ITS ---
STUDY: CT BRAIN WITH AND WITHOUT CONTRAST REASON FOR EXAM: Female, 47 years old. Blindness. Acute vertigo. RADIATION DOSAGE (If Supplied By Facility): CTDIvol = ( 60.81 ) mGy, DLP = ( 2172.41 ) mGycm TECHNIQUE: Transaxial CT imaging of the brain was performed pre and post contrast administration. The examination was performed with intravenous administration of 50 ml of Isovue 370 contrast material. Individualized dose optimization techniques were used for this CT. COMPARISON: None. FINDINGS: Normal soft tissue structures. Normal calvarium. Dense soft tissue changes in both globes. Normal size ventricles and extra-axial spaces for the patient's age. Normal white matter tracts of the cerebral hemispheres. Normal basal ganglia and thalami. Normal brainstem. Normal cerebellum. There is no intracranial hemorrhage. There are no findings of an acute ischemic infarction. Normal visualized paranasal sinuses. CT/Brain/Head W/WO Contrast IMPRESSION: No acute abnormality is seen. Dense soft tissue changes in both globes. Electronically Signed: Akash Sarabia MD at 13:39 EST Tel [phone], Service support ,
== END ==
PROVIDERS: Family Provider Family Medicine; PCP Family Medicine; Referring Provider Otolaryngology; Visit Provider Otolaryngology
DX: R42 Dizziness and giddiness (principal)
CPT/HCPCS: 70470; Q9967; A4216

== ENCOUNTER 2018-11-01 18:00 | Outpatient (RCR) | payer MEDICARE, SELFPAY ==
--- NOTE | 2018-10-18 18:12 | HP.PTEVAL ---
Patient's Visit Information LAURA FIGUEROA is a 47 year old F referred to Physical Therapy by Glenn Wiseman with a diagnosis of . Date of Evaluation: Physical Therapist: Isadora Tomlinson - Anticipated Interventions Thank you for the opportunity to evaluate your patient. For Medicare and Medicare HMO plans, please review the plan of care and approve it. It will need to be FAXED BACK to us at [phone] for Medicare purposes. Please let me know if there are questions or concerns regarding this plan of care. Physician Signature: Date:
--- NOTE | 2018-10-18 18:23 | HP.PTEVAL_ITS ---
Patient's Visit Information LAURA FIGUEROA is a 47 year old F referred to Physical Therapy by Glenn Wiseman with a diagnosis of vestibular neurtitis. Date of Evaluation: 10/18/18 Physical Therapist: Isadora Tomlinson - Visit Plan Frequency: 2-3x /Week Duration: 6 Weeks Plan: 2X-3X/ week for 6 weeks for Head movements, vestibular exercises, balance exercises with HEP - Subjective Subjective: Pt reports that TuesdayOct 02 woke up and went downstairs and then was standing at counter was going back and caught self and kept getting worse. Then Tuesday she got up and was so nauseated and dizzy and could not walk. Pt reports that it was so bad that she had to put her head down on her husbands back cause the spinning was so bad to walk into the clinic. He diagnosed with vestibular neuritis and was in bed for the whole week. She thinks she is progressively getting better. Current sympmtoms now if she walks slow with no sudden movements she is ok. She can do a couple of steps ok but needs help to walk longer. She is on zofran for the nausea. said that this could last for weeks. Dr was going to give steroids but did not want to mess up her blood sugars. Pt has a ROSA all the time and it is in the front of her head and at the back of her head. No neck problems in the past...she has been seeing a chiropractor. She is sleeping ok as long as lay on the L side....if lays on the R side she gets really dizzy. She is continously dizzy when laying on R side until she moves. They did CT scan and that came out normal. Pt reports that too much sound bothers her like from music and TV or base etc. - Objective Smooth pursuit horizontal for approx 15 seconds with head pressure. Smooth pursuit vertigo X 1 time moving eyes toward ceiling got instant head pressure. c-spine AROM: rotation B 75%, flexion 100%, ext 75%, SB B 75%. Rotation horizontal head 30 degrees each direction X 5 times each direction (increase dizziness and head pressure). Vertical head movement: pt was able to go into flex/extension once and was to dizzy to continue. standing balance with feet slightly apart...pt was able to stand there for 1 min but with increase sway and increase might tactile cues for correction of balance. Gait: pt has to walk back to the clinic holding onto therapists arm with min A by thereapist and increase veering by the pt into the therapist. - Goals Goal 1:: Be able to walk without assist from therapist and without veering Goal Time Frame: 4-6 Weeks Goal 2:: Be able to complete HEP without difficulty Goal Time Frame: 4-6 Weeks Goal 3:: Be able to walk with head turns without having lob or complaints of dizziness Goal Time Frame: 4-6 Weeks - Rehabilitation Potential Rehabilitation Potential: Good - Anticipated Interventions Patient/Client Instruction: Educate patient on: Plan of Care For the Purpose of:: To improve muscle performance and motor function, To improve ability to perform ADL's, To increase tolerance to activity/condition/position, To improve performance and independence with ADL's, To decrease level of supervision to perform tasks, To improve ability of physical actions for home/community/work/leisure, To improve gait and locomotor functions, To improve endurance, To improve safety with gait Therapeutic Exercise to Include: Strength training, Endurance training, Balance training, Body mechanics, Postural training, Gait and locomotor training, Neuromotor development, Active ROM For the Purpose of:: To improve muscle performance and motor function, To improve ability to perform ADL's, To increase tolerance to activity/condition/position, To improve performance and independence with ADL's, To decrease level of supervision to perform tasks, To improve ability of physical actions for home/community/work/leisure, To improve gait and locomotor functions, To improve endurance, To improve balance, To improve safety with gait Functional Training to Include: Gait training For the Purpose of:: To improve gait and locomotor functions, To improve safety with gait Thank you for the opportunity to evaluate your patient. For Medicare and Medicare HMO plans, please review the plan of care and approve it. It will need to be FAXED BACK to us at [phone] for Medicare purposes. Please let me know if there are questions or concerns regarding this plan of care. Physician Signature: Date:
--- NOTE | 2019-03-02 09:12 | HP.PT.NRP ---
HP - Discharge Summary (1) - Patient Information LAURA FIGUEROA was seen in my office for initial evaluation on 10/18/18. The following Plan of Care was established for this patient: Initial Frequency: 2-3x /Week Initial Duration: 6 Weeks - Anticipated Interventions Patient/Client Instruction: Educate patient on: Plan of Care For the Purpose of:: To improve muscle performance and motor function, To improve ability to perform ADL's, To increase tolerance to activity/condition/position, To improve performance and independence with ADL's, To decrease level of supervision to perform tasks, To improve ability of physical actions for home/community/work/leisure, To improve gait and locomotor functions, To improve endurance, To improve safety with gait Therapeutic Exercise to Include: Strength training, Endurance training, Balance training, Body mechanics, Postural training, Gait and locomotor training, Neuromotor development, Active ROM For the Purpose of:: To improve muscle performance and motor function, To improve ability to perform ADL's, To increase tolerance to activity/condition/position, To improve performance and independence with ADL's, To decrease level of supervision to perform tasks, To improve ability of physical actions for home/community/work/leisure, To improve gait and locomotor functions, To improve endurance, To improve balance, To improve safety with gait Functional Training to Include: Gait training For the Purpose of:: To improve gait and locomotor functions, To improve safety with gait This patient was last seen in our office 11/08/18. Pertinent comments regarding their Physical therapy will appear below: [facility] PT as pt cancelled her last appointment and did not reschedule At this point I will be discontinuing this patient from physical therapy. I would be happy to see this patient again in the future if found appropriate by the physician. Thank you! Isadora Tomlinson, MPT
== END 2018-11-01 19:00 | disposition home or self-care (01) ==
LOC: PT 18:00
PROVIDERS: Family Provider Family Medicine; PCP Family Medicine; Referring Provider Otolaryngology; Visit Provider Otolaryngology
DX: H93.3X9 Disorders of unspecified acoustic nerve (principal)
CPT/HCPCS: 97110; 97162; 97530

== ENCOUNTER → 2018-11-07 11:56 | Outpatient (CLI) | payer MEDICARE, SELFPAY ==
[2018-09-13 15:19] VITALS: BMI 28.6
--- NOTE | 2018-11-07 12:00 | RAD_ITS ---
STUDY: X-RAY - RIGHT WRIST REASON FOR EXAM: Female, 47 years old. Fall. Pain in scaphoid. TECHNIQUE: 4 view(s) of the wrist were obtained. COMPARISON: None. FINDINGS: Normal visualized distal radius and ulna. Normal radiocarpal articulation. Normal distal radioulnar articulation. Question of nondisplaced fracture distal lateral corner of the scaphoid, image CR #2 versus artifact. The waist of the scaphoid is normal. Normal carpal articulations. Normal carpometacarpal articulation of the thumb. Normal second through fifth carpometacarpal articulations. Normal visualized metacarpal bones. Soft tissue swelling dorsum of the wrist. RAD/Wrist min 3 Views IMPRESSION: Questionable nondisplaced corner fracture of the scaphoid versus artifact. Soft tissue swelling. Electronically Signed: Jay Dow MD at 2:25 EST , Service support ,
--- OUTSIDE RECORDS SUMMARY | 2018-12-24 13:53 | XMS RPT_ITS ---
:1970 Author Organization OHIP Support Name Relationship Address Phone BENCHOFF II, MICHELLE Unavailable [address] + [place] [address] [facility] Unavailable [address] + [place] [address] BENCHOFF II, MICHELLE Unavailable [address] + [place] [address] [facility] Unavailable [phone] [place] [address] BENCHOFF II, MICHELLE Unavailable [phone] [place] [address] [facility] Unavailable [phone] [place] [address] BENCHOFF II, MICHELLE Unavailable [phone] [place] [address] [facility] Unavailable [phone] [place] [address] BENCHOFF II, MICHELLE Unavailable [phone] [place] [address] [facility] Unavailable [phone] [place] [address] BENCHOFF II, MICHELLE Unavailable [phone] [place] [address] [facility] Unavailable [phone] [place] [address] BENCHOFF II, MICHELLE Unavailable [phone] [place] [address] [facility] Unavailable [phone] [place] [address] BENCHOFF II, MICHELLE Unavailable [phone] [place] [address] [facility] Unavailable [phone] [place] [address] BENCHOFF II, MICHELLE Unavailable [phone] [place] [address] [facility] Unavailable [phone] [place] [address] BENCHOFF II, MICHELLE Unavailable [phone] [place] [address] [facility] Unavailable [phone] [place] [address] BENCHOFF II, MICHELLE Unavailable [phone] [place] [address] [facility] Unavailable [phone] [place] [address] BENCHOFF II, MICHELLE Unavailable [phone] [place] [address] [facility] Unavailable [phone] [place] [address] BENCHOFF II, MICHELLE Unavailable [phone] [place] [address] [facility] Unavailable [phone] [place] [address] BENCHOFF II, MICHELLE Unavailable [phone] [place] [address] [facility] Unavailable [phone] [place] [address] BENCHOFF II, MICHELLE Unavailable [phone] [place] [address] [facility] Unavailable [phone] [place] [address] BENCHOFF II, MICHELLE Unavailable [phone] [place] [address] [facility] Unavailable [phone] [place] [address] Care Team Providers Name Role Phone Lindsey Campo Attending Unavailable Lindsey Campo Referring Unavailable Lindsey Campo Primary Care Unavailable Harjinder Madden Attending Unavailable Harjinder Madden Referring Unavailable Campo, Lindsey Primary Care Unavailable Harjinder Madden Attending Unavailable Chano, Harjinder Referring Unavailable Campo, Lindsey Primary Care Unavailable Harjinder Madden Attending Unavailable Chano, Harjinder Referring Unavailable Campo, Lindsey Primary Care Unavailable Marvin Sosa Attending Unavailable Campo, Lindsey Primary Care Unavailable Sanford Dave Attending Unavailable Campo, Lindsey Referring Unavailable Campo, Lindsey Primary Care Unavailable Mariann Byrd NP-C Attending Unavailable Campo, Lindsey Referring Unavailable Campo, Lindsey Primary Care Unavailable Sanford Dave Attending Unavailable RashaunpaSanford ricks Referring Unavailable Campo, Lindsey Primary Care Unavailable Mariann Byrd MANAGER [employer] Consulting Unavailable Campo, Lindsey Primary Care Unavailable Oleghe, Ifijen Admitting Unavailable Oleghe, Ifijen Attending Unavailable John Paul, [place] Consulting Unavailable Oleghe, Ifijen Admitting Unavailable Campo, Lindsey Primary Care Unavailable John Paul, Gamal Consulting Unavailable Ame Rene Attending Unavailable Oleghe, Ifijen Consulting Unavailable Oleghe, Ifijen Admitting Unavailable John Paul, [place] Attending Unavailable Campo, Lindsey Primary Care Unavailable John Paul, [place] Consulting Unavailable Oleghe, Ifijen Consulting Unavailable Sanford Dave Attending Unavailable Campo, Lindsey Referring Unavailable Tenzin, Sanford Attending Unavailable Sanford Dave Referring Unavailable Campo, Lindsey Primary Care Unavailable Tenzin, Sanford Attending Unavailable Sanford Dave Referring Unavailable Campo, Lindsey Primary Care Unavailable Sanford Dave Consulting Unavailable Glenn Wiseman Attending Unavailable Glenn Wiseman Referring Unavailable Campo, Lindsey Primary Care Unavailable Glenn Wiseman Attending Unavailable Glenn Wiseman Referring Unavailable Campo, Lindsey Primary Care Unavailable PROBLEMS PROBLEMS DATE TYPE CONDITION / CODE ATTENDING STATUS SOURCE 12/11/2018 Unknown S62.001A - Chano, Active [place] Unspecified fracture [facility] [scaphoid] bone of Repository right wrist, initial encounter for closed fracture / S62.001A(ICD-10) 11/22/2018 Unknown S60.211A - Contusion Chano, Active [place] of right wrist, [facility] initial encounter / Hospital S60.211A(ICD-10) Repository 11/08/2018 Unknown 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 / Hospital H93.3X9(ICD-10) Repository 09/28/2018 Unknown I25.10 - Sanford Dave Active [place] 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 Imaging Services [address] [place] [address] Hand Min 3 Views MR#: [id number] Acct: [id number] Name: ADINA DANG Rep #: [id number] : 1970 F 47 From: Morgan Torres MD PCP: Lindsey Campo MD Status: REG CLI Study: Hand Min 3 Views Date of Exam: 12/06/18 Exam# [id number] Ordering Dr: Omid Madedn MD HISTORY: fx of scaphoid right wrist COMPARISON: 11/22/2018 and 11/07/2018 FINDINGS: XR right hand 4 views With comparison previous, no significant change. Small ununited corner fracture or chip fracture at the radial and palmar aspect of the distal navicular. The remaining visualized bones appear intact. Joint spaces appear preserved. No significant arthritis. No dislocation or instability. RAD/Hand Min 3 Views IMPRESSION: 1. Stable findings. Small ununited corner fracture or chip fracture of the distal navicular, right wrist. 2. At this location, no worry for avascular necrosis. 3. No significant arthritis and no acute disease. at 0523 Reported and signed by: Morgan Torres MD Electronically Signed: Morgan Torres, at 5:22 EST Tel , Service support , CC: Harjinder Madden MD; Lindsey Campo MD Roaster Supervisor: Signed WRIST MIN 3 VIEWS Observed: 11/22/2018 Status: F Source: [place] 3:07 PM [facility]POS[facility] Imaging Services [address] [place] [address] Wrist min 3 Views MR#: [id number] Acct: [id number] Name: ADINA DANG Rep #: [id number] : 1970 F 47 From: Mark Wellington MD PCP: Lindsey Campo MD Status: REG CLI Study: Wrist min 3 Views Date of Exam: 11/22/18 Exam# [id number] Ordering Dr: Omid Madden MD STUDY: X-RAY - RIGHT WRIST REASON FOR EXAM: Female, 47 years old. TECHNIQUE: 4 view(s) of the wrist were obtained. COMPARISON: November 07, 2018 FINDINGS: There is tiny undisplaced fracture involving the distal lateral aspect of the scaphoid bone. No other osseous or articular abnormality seen. No soft tissue swelling identified. IMPRESSION: Undisplaced fracture distal lateral aspect of the navicular bone RAD/Wrist min 3 Views IMPRESSION: Undisplaced fracture of the navicular bone more obvious than in the previous examination. Electronically Signed: Mark Wellington, at 11:59 EST Tel , Service support , CC: Harjinder Madden MD; Lindsey Campo MD Roaster Supervisor: Signed WRIST MIN 3 VIEWS Observed: 11/07/2018 Status: F Source: [place] 12:03 PM [facility] Imaging Services [address] [place] [address] Wrist min 3 Views MR#: [id number] Acct: [id number] Name: ADINA DANG Rep #: [id number] : 1970 F 47 From: Jay Dow PCP: Lindsey Campo MD Status: REG CLI Study: Wrist min 3 Views Date of Exam: 11/07/18 Exam# [id number] Ordering Dr: Lindsey Campo MD STUDY: X-RAY - RIGHT WRIST REASON FOR EXAM: Female, 47 years old. Fall. Pain in scaphoid. TECHNIQUE: 4 view(s) of the wrist were obtained. COMPARISON: None. FINDINGS: Normal visualized distal radius and ulna. Normal radiocarpal articulation. Normal distal radioulnar articulation. Question of nondisplaced fracture distal lateral corner of the scaphoid, image CR #2 versus artifact. The waist of the scaphoid is normal. Normal carpal articulations. Normal carpometacarpal articulation of the thumb. Normal second through fifth carpometacarpal articulations. Normal visualized metacarpal bones. Soft tissue swelling dorsum of the wrist. RAD/Wrist min 3 Views IMPRESSION: Questionable nondisplaced corner fracture of the scaphoid versus artifact. Soft tissue swelling. Electronically Signed: Jay Dow MD at 2:25 EST , Service support , CC: Lindsey Campo MD Roaster Supervisor: Signed INITAL EVALUATION (1) Observed: 10/20/2018 Status: F Source: [facility] 10:10 AM [facility] REPOSITORY [facility] Physical Therapy [address] [place] [address] Fax REHABILITATION SERVICES INITIAL EVALUATION MR#: [id number] Acct: [id number] Name: ADINA DANG Rep #: [id number] : 1970 47 From: Isadora FALLON Referring DrAmy: Glenn Wiseman MD Status: REG R Insurance: MEDICARE PART A B SELF PAY INSURANCE Patient's Visit Information ADINA DANG is a 47 year old F referred to Physical Therapy by Glenn Wiseman with a diagnosis of vestibular neurtitis. Date of Evaluation: 10/18/18 Physical Therapist: Isadora Stoner - Visit Plan Frequency: 2-3x /Week Duration: 6 Weeks Plan: 2X-3X/ week for 6 weeks for Head movements, vestibular exercises, balance exercises with HEP - Subjective Subjective: Pt reports that TuesdayOct 02 woke up and went downstairs and then was standing at counter was going back and caught self and kept getting worse. Then Tuesday she got up and was so nauseated and dizzy and could not walk. Pt reports that it was so bad that she had to put her head down on her husbands back cause the spinning was so bad to walk into the clinic. He diagnosed with vestibular neuritis and was in bed for the whole week. She thinks she is progressively getting better. Current sympmtoms now if she walks slow with no sudden movements she is ok. She can do a couple of steps ok but needs help to walk longer. She is on zofran for the nausea. said that this could last for weeks. Dr was going to give steroids but did not want to mess up her blood sugars. Pt has a ROSA all the time and it is in the front of her head and at the back of her head. No neck problems in the past...she has been seeing a chiropractor. She is sleeping ok as long as lay on the L side....if lays on the R side she gets really dizzy. She is continously dizzy when laying on R side until she moves. They did CT scan and that came out normal. Pt reports that too much sound bothers her like from music and TV or base etc. - Objective Smooth pursuit horizontal for approx 15 seconds with head pressure. Smooth pursuit vertigo X 1 time moving eyes toward ceiling got instant head pressure. c-spine AROM: rotation B 75%, flexion 100%, ext 75%, SB B 75%. Rotation horizontal head 30 degrees each direction X 5 times each direction (increase dizziness and head pressure). Vertical head movement: pt was able to go into flex/extension once and was to dizzy to continue. standing balance with feet slightly apart...pt was able to stand there for 1 min but with increase sway and increase might tactile cues for correction of balance. Gait: pt has to walk back to the clinic holding onto therapists arm with min A by thereapist and increase veering by the pt into the therapist. - Goals Goal 1:: Be able to walk without assist from therapist and without veering Goal Time Frame: 4-6 Weeks Goal 2:: Be able to complete HEP without difficulty Goal Time Frame: 4-6 Weeks Goal 3:: Be able to walk with head turns without having lob or complaints of dizziness Goal Time Frame: 4-6 Weeks - Rehabilitation Potential Rehabilitation Potential: Good - Anticipated Interventions Patient/Client Instruction: Educate patient on: Plan of Care For the Purpose of:: To improve muscle performance and motor function, To improve ability to perform ADL's, To increase tolerance to activity/condition/position, To improve performance and independence with ADL's, To decrease level of supervision to perform tasks, To improve ability of physical actions for home/community/work/leisure, To improve gait and locomotor functions, To improve endurance, To improve safety with gait Therapeutic Exercise to Include: Strength training, Endurance training, Balance training, Body mechanics, Postural training, Gait and locomotor training, Neuromotor development, Active ROM For the Purpose of:: To improve muscle performance and motor function, To improve ability to perform ADL's, To increase tolerance to activity/condition/position, To improve performance and independence with ADL's, To decrease level of supervision to perform tasks, To improve ability of physical actions for home/community/work/leisure, To improve gait and locomotor functions, To improve endurance, To improve balance, To improve safety with gait Functional Training to Include: Gait training For the Purpose of:: To improve gait and locomotor functions, To improve safety with gait Thank you for the opportunity to evaluate your patient. For Medicare and Medicare HMO plans, please review the plan of care and approve it. It will need to be FAXED BACK to us at [phone] for Medicare purposes. Please let me know if there are questions or concerns regarding this plan of care. Physician Signature: Date: <Electronically signed by Isadora Tomlinson MPT> 10/20/18 1010 CC: Lindsey Campo MD; Glenn Wiseman MD Signed For Medicare only, by signing this I certify the plan of care. Physicians Signature Date INITAL EVALUATION (1) Observed: 10/20/2018 Status: F Source: [place] - PT 10:10 AM [facility] REPOSITORY [facility] Physical Therapy [facility] [address] [place] [address]. [address] [place] [address] Fax REHABILITATION SERVICES INITIAL EVALUATION MR#: [id number] Acct: [id number] Name: ADNIA DANG Rep #: [id number] : 1970 47 From: Isadora FALLON Referring Dr.: Glenn Wiseman MD Status: REG RCR Insurance: MEDICARE PART A B SELF PAY INSURANCE Patient's Visit Information ADINA DANG is a 47 year old F referred to Physical Therapy by Glenn Wiseman with a diagnosis of . Date of Evaluation: Physical Therapist: Isadora Tomlinson - Anticipated Interventions Thank you for the opportunity to evaluate your patient. For Medicare and Medicare HMO plans, please review the plan of care and approve it. It will need to be FAXED BACK to us at [phone] for Medicare purposes. Please let me know if there are questions or concerns regarding this plan of care. Physician Signature: Date: <Electronically signed by Isadora FALLON> 10/20/18 1010 CC: Lindsey Campo MD; Glenn Wiseman MD Signed For Medicare only, by signing this I certify the plan of care. Physicians Signature Date BRAIN/HEAD W/WO Observed: 10/03/2018 Status: F Source: [place] CONTRAST 12:20 PM [facility] REPOSITORY [facility] Imaging Services [address] [place] [address] Brain/Head W/WO Contrast MR#: [id number] Acct: [id number] Name: ADINA DANG Rep #: [id number] : 1970 F 47 From: Akash Sarabia MD PCP: Lindsey Campo MD Status: REG CLI Study: Brain/Head W/WO Contrast Date of Exam: 10/03/18 Exam# [id number] Ordering Dr: Glenn Wiseman MD STUDY: CT BRAIN WITH AND WITHOUT CONTRAST REASON FOR EXAM: Female, 47 years old. Blindness. Acute vertigo. RADIATION DOSAGE (If Supplied By Facility): CTDIvol = ( 60.81 ) mGy, DLP = ( 2172.41 ) mGycm TECHNIQUE: Transaxial CT imaging of the brain was performed pre and post contrast administration. The examination was performed with intravenous administration of 50 ml of Isovue 370 contrast material. Individualized dose optimization techniques were used for this CT. COMPARISON: None. FINDINGS: Normal soft tissue structures. Normal calvarium. Dense soft tissue changes in both globes. Normal size ventricles and extra-axial spaces for the patient's age. Normal white matter tracts of the cerebral hemispheres. Normal basal ganglia and thalami. Normal brainstem. Normal cerebellum. There is no intracranial hemorrhage. There are no findings of an acute ischemic infarction. Normal visualized paranasal sinuses. CT/Brain/Head W/WO Contrast IMPRESSION: No acute abnormality is seen. Dense soft tissue changes in both globes. Electronically Signed: Akash Sarabia MD at 13:39 EST Tel [phone], Service support , CC: Lindsey Campo MD; Glenn Wiseman MD Roaster Supervisor: Signed ECHOCARDIOGRAM COMPLETE Observed: 09/28/2018 Status: F Source: [place] 6:20 PM [facility] REPOSITORY [facility] Cardiovascular Services [address] [place] [address] Echo Complete 09/28/18 1612 MR#: [id number] Acct: [id number] Name: ADINA DANG Rep #: [id number] : 1970 47 From: Sanford Dave MD Attending Dr: Sanford Dave MD Status: REG CLI Ordering Dr: Sanford Dave MD Date: 09/28/18 Location: [facility] Sex: F C Admitted: Reason For Study: MURMUR Procedure This was a 2D Doppler, Color Flow transthoracic echocardiogram. The exam was of poor technical quality due to poor acoustic windows. The study was technically difficult. Exam performed in department. Left Ventricle Normal LV size. Left ventricular systolic function is normal. The estimated ejection fraction is 70 %. There is evidence of diastolic dysfunction. No regional wall motion abnormalities noted. Right Ventricle Normal RV size. Normal systolic function. Atria Normal left atrium. Normal right atrium. No doppler evidence for ASD. Mitral Valve There is mild mitral annular calcification. Normal mitral valve. Trivial mitral valve insufficiency. Tricuspid Valve Normal tricuspid valve. Trivial tricuspid valve insufficiency. Right ventricular systolic pressure estimated to be 40 mmHg. Aortic Valve Trisinus/trileaflet aortic valve. Normal aortic valve. Pulmonic Valve The pulmonic valve is not well visualized. Trivial pulmonic valve insufficiency. Great Vessels Normal sized aortic root. Pericardium/Pleural No pericardial effusion. MMode/2D Measurements AND Calculations LVIDd: 5.0 cm IVSd: 1.0 cm Ao root diam: 3.3 cm LVIDs: 3.1 cm LVPWd: 0.98 cm RVDd: 3.2 cm FS: 38.1 % LAV(MOD-bp): 56.8 ml EDV(MOD-sp4): 99.4 ml SV(MOD-sp4): 69.8 ml LAV(MOD-bp) Indexed: 28.4 ml/m2 ESV(MOD-sp4): 29.6 ml LAV(MOD-sp2): 63.1 ml EF(MOD-sp4): 70.2 % LAV(MOD-sp4): 50.0 ml LA A4 area: 18.3 cm2 LA dimension(2D): 4.0 cm RA A4 area: 13.5 cm2 Time Measurements MV dec time: 0.24 sec Doppler Measurements AND Calculations MV E max chase: 135.4 cm/sec Lat Peak E' Chase: 7.2 cm/sec Med Peak E' Chase: 6.6 cm/sec MV A max chase: 129.0 cm/sec E/E' lat: 18.7 E/E' med: 20.4 MV E/A: 1.1 MV V2 max: 144.2 cm/sec Ao V2 max: 280.5 cm/sec LV V1 max: 162.5 cm/sec MV max P.3 mmHg Ao max P.5 mmHg LV V1 max P.6 mmHg MV V2 mean: 100.2 cm/sec Ao V2 mean: 210.5 cm/sec LV V1 mean P.9 mmHg MV mean P.4 mmHg Ao mean P.1 mmHg LV V1 mean: 115.7 cm/sec MV V2 VTI: 35.6 cm Ao V2 VTI: 59.8 cm LV V1 VTI: 33.7 cm PA V2 max: 139.8 cm/sec TR max chase: 303.6 cm/sec MV P1/2t-pr_phl: 77.5 msec TR max P.1 mmHg Interpretation Summary The study was technically difficult. Left ventricular systolic function is normal. The estimated ejection fraction is 70 %. There is mild mitral annular calcification. Trivial mitral valve insufficiency. Trivial tricuspid valve insufficiency. Trivial pulmonic valve insufficiency. Right ventricular systolic pressure estimated to be 40 mmHg. There is evidence of diastolic dysfunction. Ordering Physician: Sanford Dave Referring Physician: LINDSEY CAMPO Performed By: Marina Felix, KEMI, RVT 09/28/181819 Date Sanford Dave MD CC: Lindsey Campo MD; Sanford Dave MD Date Dictated: 09/28/18 161 Date Transcribed: 09/28/181819 Roaster Supervisor: Signed CARDIOLOGY VISIT Observed: 09/13/2018 Status: F Source: [place] REPORT 5:09 PM [facility] REPOSITORY [facility] [address] [place] [address] OFFICE VISIT Date of Service: 09/13/18 MR#: [id number] Acct: [id number] Name: ADINA DANG Rep #: [id number] : 1970 Provider: Sanford Dave MD Age/Sex: 47/F Location: [facility] Status: Signed HPI HPI Details: ADINA DANG, is a 47 F who presents to the office today for outpatient hospital follow-up. She was evaluated approximately 1 month ago by my colleague Dr. Coker at [facility] for concerns of chest discomfort. During her evaluation she underwent diagnostic cardiac catheterization. The results are as noted below. She required continued medical management. She did not require PCI. She was released home. Since being home she states overall she believes she has been doing well. She denies any ongoing chest discomfort and she has not had use nitroglycerin sublingual. There has been no issues with respect to CHF or pulmonary edema. There has been no near syncope or syncope. She has not had use nitroglycerin sublingual tablets. She has not required additional cardiovascular testing. Intake Vital Signs09/13/18 Height 5 ft 9 in 09/13/18 Weight: 194 lb 09/13/18 Body Mass Index (BMI) 28.6 09/13/18 Blood Pressure 120/62 Intake Visit Reasons: 9 M FU Allergies adhesive tape Allergy (Severe, Verified 09/13/18 15:19) Unknown ephedrine [Ephedrine] Allergy (Verified 09/13/18 15:19) Other Medications Aspirin [Aspirin, Baby] 81 mg PO DAILY@0800 02/18/15 [History Confirmed 09/13/18] Atorvastatin Calcium [Lipitor] 80 mg PO QHS 02/18/15 [History Confirmed 09/13/18] Colchicine 0.6 mg PO X1 PRN 02/18/15 [History Confirmed 09/13/18] Glucagon 0.5 mg IM X1 PRN 02/18/15 [History Confirmed 09/13/18] Grape Seed Extract [Grape Seed] 25 mg PO DAILY 02/18/15 [History Confirmed 09/13/18] Levothyroxine Sodium [Levoxyl] 112 mcg PO DAILY 02/18/15 [History Confirmed 09/13/18] Magnesium 500 mg PO DAILY 02/18/15 [History Confirmed 09/13/18] Nitroglycerin [Nitrostat] 0.4 mg SUBLINGUAL Q5M PRN 02/18/15 [History Confirmed 09/13/18] Norethindrone [Nor-Q-D] 1 tab PO DAILY 02/18/15 [History Confirmed 09/13/18] insulin aspart U- 100 100 unit/mL subcutaneous solution See Rx Instructions SC TID ml 12/12/17 [History Confirmed 09/13/18] linagliptin 5 mg tablet 5 mg PO DAILY 12/12/17 [History Confirmed 09/13/18] clopidogrel 75 mg tablet 75 mg PO DAILY #90 tab 03/28/18 [Rx Confirmed 09/13/18] lisinopril 2.5 mg tablet 2.5 mg PO DAILY #90 tab 05/10/18 [Rx Confirmed 09/13/18] carvedilol 6.25 mg tablet 6.25 mg PO BID #180 tab 06/27/18 [Rx Confirmed 09/13/18] Cholecalciferol (VIT D3) [Vitamin D3] 1,000 unit PO DAILY 08/11/18 [History Confirmed 09/13/18] Insulin Degludec [Tresiba Flextouch U-200] 40 unit SQ DAILY 08/11/18 [History Confirmed 09/13/18] Isosorbide Mononitrate [Imdur] 30 mg PO DAILY 30 Days #30 tab 08/11/18 [Rx Confirmed 09/13/18] omeprazole 20 mg capsule,delayed release 20 mg PO BID cap 09/13/18 [History Confirmed 09/13/18] [facility] Medical History Atherosclerotic heart disease of [place] coronary artery without angina pectoris (Acute) Pericarditis (Acute) ST elevation myocardial infarction (STEMI) of anterior wall (Acute) Chronic kidney disease (Acute) Hypothyroidism (Acute) Hyperlipidemia (Acute) HTN (hypertension) (Chronic) Diabetes type 1, controlled (Acute) Anxiety (Acute) Asthma (Acute) Blindness (Acute) Diabetic retinopathy (Acute) Family history of hypertension (Acute) Hearing loss (Acute) Hives (Acute) Rash (Acute) Retinopathy (Acute) Rheumatoid arthritis (Acute) Amputation of left middle finger (Resolved) Surgical History Presence of stent in coronary artery (Acute 01/23/14) H/O angioplasty (Resolved) H/O breast augmentation (Resolved) H/O vitrectomy (Resolved) H/O: (Resolved) History of coronary angioplasty (Resolved 11/08/13) History of left heart catheterization (Resolved) History of tonsillectomy (Resolved) S/P appendectomy (Resolved) Family History Mother CAD (coronary artery disease) Brother Hypertension Melanoma Father Heart disease Unknown Diabetes Endometriosis Asthma Environmental allergies Hypertension Glaucoma Grandmother Lung cancer Social History Smoking Status: Never smoker second hand exposure: No alcohol intake: current alcohol intake frequency: other substance use type: does not use ROS Const Const: Negative for fatigue, weakness, weight gain, weight loss, frequent falls or excessive sweating Eyes Eyes: Negative for change in vision, blurry vision or transient loss of vision ENT ENT: Negative for dizziness or balance problems Cardio Chest Pain: No Palpitations: No Edema: None Muscle aches with walking: None Resp Respiratory: Negative for SOB with activity or SOB at rest GI GI: Negative vomiting or vomiting blood/hematemesis : Negative for hematuria Musc Musc: Negative for balance problems, muscle aches/ myalgia, muscle weakness or joint pain Skin Skin: Negative non-healing lesions or rash Neuro Neuro: Negative for weakness, blurry vision, dizziness, lightheadedness, frequent falls or orthostatic symptoms Josh Hematologic/Lymphatic: Negative for easy bleeding Endo Endo: Negative for fatigue or excessive sweating Psych Psych: Negative for anxiety or depression Allergy Allergy/Immunology: Negative for hives, Negative for rash Cardiology Exam Const Appearance: cooperative, healthy appearing, comfortable, no acute distress, well developed and well groomed Nutritional Appearance: average body habitus Orientation: alert, awake and oriented x3 Head Head: normal to inspection, normocephalic and atraumatic Ears: hearing grossly normal bilaterally Nose: external nose normal Face and Sinus: face symmetric Mouth: oral mucosae normal Teeth and gingiva: fair dentition Neck Neck: normal visual inspection and full ROM Carotids: normal carotid upstroke Chest Chest inspection: normal inspection of the chest, symmetric chest movement and normal respiratory effort Auscultation: Bilateral: Clear to Auscultation Cardio Palpation: normal PMI Rate: regular rate Rhythm: regular rhythm Heart sounds: S1 normal and S2 normal GI GI: normal to inspection, bowel sounds present and soft Neuro General: alert, awake and oriented x3 Skin Skin: no rashes or lesions noted Extremities Pulses: Normal: Right Radial Pulse, Left Radial Pulse Lower Extremity Edema: None: Bilateral Psych Psychological: normal affect Supplemental Info Transthoracic echocardiogram: 02/14/2015 Interpretation Summary The study was technically difficult. Contrast injection was performed. Left ventricular systolic function is normal. The estimated ejection fraction is 65 %. Trivial mitral valve insufficiency. Trivial tricuspid valve insufficiency. Trivial pericardial effusion. There are no echocardiographic indications of cardiac tamponade. Right ventricular systolic pressure estimated to be 24 mmHg. Transmitral doppler flow suggestive of impaired relaxation of left ventricle Stress test: 02/14/2015 The patient exercised on a Iglesia protocol for 6 minutes completing stage 2 achieving a peak heart rate of 123 beats per minute (70% predicted maximum heart rate) with a peak blood pressure of 190/90 mmHg and a peak MET capacity of approximately 7 METS. The baseline ECG demonstrated normal sinus rhythm with low- voltage QRS. The peak exercise ECG demonstrated no obvious ECG changes. There were no cardiac dysrhythmias pretest, during exercise, or recovery. The functional capacity was considered average. The patient had no complaint of chest discomfort during exercise or recovery. The examination was discontinued secondary to dyspnea. IMPRESSION: 1. Technically adequate (percent predicted maximum heart rate greater than 85%) exercise tolerance test. 2. Peak exercise ECG no obvious ECG changes. 3. Pharmacologic (regadenoson) evaluation pending. The patient underwent pharmacologic (regadenoson) evaluation with a peak heart rate of 107 beats per minute (61% predicted maximum heart rate) and a peak blood pressure of 168/94 mmHg. The baseline ECG demonstrated normal sinus rhythm with low- voltage QRS. The peak pharmacologic ECG demonstrated no obvious ECG changes. There were no cardiac dysrhythmias pretest, during pharmacologic infusion, or recovery. There was no report of chest discomfort during pharmacologic infusion or recovery. The examination was discontinued secondary to completion of protocol. IMPRESSION: 1. Pharmacologic (regadenoson) evaluation. 2. Peak pharmacologic ECG with no obvious ECG changes. 3. Nuclear images pending. MYOCARDIAL PERFUSION IMAGING STUDY: TECHNIQUE: The patient was injected with 13.3 mCi of Tc99m Cardiolite and subsequently rest SPECT Cardiolite nuclear imaging was obtained in the horizontal long, vertical long, and short axes views. The patient exercised on a Iglesia protocol for 6 minutes achieving a peak heart rate of 123 beats per minute (70% predicted maximum heart rate) with a peak blood pressure of 190/90 mmHg and a peak MET capacity of approximately 7 METS. The patient subsequently underwent pharmacologic (regadenoson) evaluation with a peak heart rate of 107 beats per minute (61% predicted maximum heart rate) and a peak blood pressure of 168/94 mmHg. The patient was injected with 40.2 mCi of Tc99m Cardiolite and subsequently stress SPECT Cardiolite nuclear imaging was obtained in the horizontal long, vertical long, and short axes views. A gated Cardiolite study at peak stress was obtained. INTERPRETATION: Rest and stress SPECT Cardiolite nuclear imaging demonstrate extracardiac/ hepatic and gastrointestinal tracer uptake near the inferior segments, which maybe somewhat more prominent at rest as opposed to stress. Otherwise, there appears to be relative uniform tracer uptake at rest. Status post stress there is notation of diminished to absence of tracer uptake in portions of the inferoapical and lateral apical segments. There were similar type findings on the resting and stress polar map images. There is end systolic thickening and brightening. The gated Cardiolite study demonstrates myocardial thickening and inward wall motion. The reported LVEF is 78%. The aforementioned findings are concerning for stress induced myocardial ischemia involving portions of the lateral apical and inferoapical segments. IMPRESSION: 1. Rest and stress SPECT Cardiolite nuclear imaging demonstrate myocardial perfusion changes concerning for stress induced myocardial ischemia involving portions of the lateral apical and inferoapical segments. 2. The gated Cardiolite study reports an LVEF of 78%. Cardiac catheterization: 08/11/2018 CORONARY ANGIOGRAPHY DOMINANCE: Right Dominant LEFT HEART ASSESSMENT Left Ventricular Ejection Fraction: Not assessed LEFT MAIN: Angiographically normal LEFT ANTERIOR DECENDING ARTERY: PROX LAD: Mild luminal irregularities MID LAD: Moderate luminal irregularities up to 50% DISTAL LAD: Mild luminal irregularities CIRCUMFLEX ARTERY: Mild luminal irregularities less than 30% RIGHT CORONARY ARTERY: Mild luminal irregularities ACUTE MARGINAL: sequential 90 pct stenosis PCI: 01/23/2014: [facility]: Impression: Successful stenting o4 the 80% stenosis in the mid right coronary artery. Drug eluding Successful angioplasty of a 90% ostial stenosis in the proximal posterior descending R Assessment AND Plan 1. Atherosclerotic heart disease of [place] coronary artery without angina pectoris I25.10 angioplasty to LAD; no stent @ [facility] 11/08/13; PTCA/MARCUS to mid RCA; angioplasty of prox PDA @ [facility] 01/23/14 Plan At the present time the patient appears to be doing reasonably well. She denies any ongoing acute symptoms or continued use of nitroglycerin sublingual. She will continue her current medical management. She will monitor for any concerns and report such to the office or the hospital as needed. Orders Orders: 2. Presence of stent in coronary artery Z95.5 PTCA/MARCUS to mid RCA; angioplasty of prox PDA 01/23/[address] Glenn Merino at [facility] Plan The patient does have a history of PCI as previously noted. Again she appears to be without acute symptoms at this time. She will continue medical management and follow-up. 3. Mixed hyperlipidemia E78.2 Controlled. No change. Tolerating statin well Plan The patient does have a history of hyperlipidemia. Her lipid labs were evaluated in April of this year. They appear to be under reasonably good control 4. Essential hypertension I10 BP 126/64 No change in regimen Plan The patient's blood pressure appears to be reasonably well- controlled at the moment. She will continue her current medical management 5. Diabetes type 1, controlled E10.9 Plan She will continue under care of her primary care physician for this diagnosis. 6. Chronic kidney disease N18.9 Plan She does have a history of chronic renal insufficiency. She did not have a left ventriculogram during her cardiac catheterization. An echocardiogram will be arranged for her to evaluate her left ventricular wall motion and systolic function as well as her valvular anatomy and physiology Plan Detail Other Medications New: Additional Comments Thank you for allowing me to participate in the care of your patient. Please don't hesitate to call if any issues arise. This note was generated using a voice recognition system and there may be incorrect words, spelling or punctuation that were not noted when reviewing the office note prior to saving. Follow Up 6 Months (PFM) Coding Level of Care Code Off vis,est,level 4 Diagnoses Atherosclerotic heart disease of [place] coronary artery without angina pectoris I25.10 Presence of stent in coronary artery Z95.5 Mixed hyperlipidemia E78.2 Hyperlipidemia type: mixed hyperlipidemia Essential hypertension I10 Hypertension type: essential hypertension Diabetes type 1, controlled E10.9 Chronic kidney disease N18.9 Coding Level of Care Code Off vis,est,level 4 Diagnoses Atherosclerotic heart disease of [place] coronary artery without angina pectoris I25.10 Presence of stent in coronary artery Z95.5 Mixed hyperlipidemia E78.2 Hyperlipidemia type: mixed hyperlipidemia Essential hypertension I10 Hypertension type: essential hypertension Diabetes type 1, controlled E10.9 Chronic kidney disease N18.9 09/13/18 1709 <Electronically signed by Sanford Dave MD> Date Sanford Dave MD Cosigner Signature: Date (if applicable) CC: Lindsey Campo MD 12 LEAD ELECTROCARDIOGRAM Observed: 08/14/2018 Status: F Source: [place] 3:54 PM [facility]ORY [facility] Cardiovascular Services [address] [place] [address] 12 Lead EKG 08/11/18 1002 MR#: [id number] Acct: [id number] Name: ADINA DANG Rep #: [id number] : 1970 47 From: Gamal Coker MD Attending Dr: Fredy Tubbs M.D. Status: DIS CARMELO Ordering Dr: Fredy Tubbs MD Date: 08/11/18 Location: [facility] Sex: F C Admitted: 08/11/18 Test Reason : CP Blood Pressure : / mmHG Vent. Rate : 095 BPM Atrial Rate : 095 BPM P-R Int : 136 ms QRS Dur : 084 ms QT Int : 362 ms P-R-T Axes : 034 -18 045 degrees QTc Int : 454 ms Normal sinus rhythm Cannot rule out Anterior infarct , age undetermined Abnormal ECG Confirmed by GAMAL COKER MD ([id number]), web editor ALEIDA RUBALCAVA ([id number]) on 08/14/2018 3:54:09 PM Referred By: MUSHTAQ Confirmed By:GAMAL COKER MD 08/14/18 7412 Date Gamal Coker MD CC: Lindsey Camop MD; Fredy Tubbs M.D. Signed 12 LEAD ELECTROCARDIOGRAM Observed: 08/14/2018 Status: F Source: [place] 3:09 PM [facility] Cardiovascular Services [address] [place] [id number] 12 Lead EKG 08/11/18 0804 MR#: [id number] Acct: [id number] Name: ADINA DANG Rep #: [id number] : 1970 47 From: Gamal Coker MD Attending Dr: Fredy Tubbs M.D. Status: DIS CARMELO Ordering Dr: Shubham Olivas MD Date: 08/11/18 Location: [facility] Sex: F C Admitted: 08/11/18 Test Reason : CP Blood Pressure : / mmHG Vent. Rate : 089 BPM Atrial Rate : 089 BPM P-R Int : 136 ms QRS Dur : 082 ms QT Int : 346 ms P-R-T Axes : 082 -29 166 degrees QTc Int : 420 ms Normal sinus rhythm Possible Left atrial enlargement Possible Anterolateral infarct , age undetermined Abnormal ECG Confirmed by GAMAL COKER MD ([id number]), web editor ALEIDA RUBALCAVA ([id number]) on 08/14/2018 3:09:34 PM Referred By: Confirmed By:GAMAL COKER MD 08/14/18 1509 Date Gamal Coker MD CC: Lindsey Campo MD; Fredy Tubbs M.D.; Shubham Olivas MD Signed CONSULTATION Observed: 08/12/2018 Status: F Source: [place] 2:06 PM [facility] Medical Records Department [address] [place] [address] Consultation 08/11/18 1124 MR#: [id number] Acct: [id number] Name: ADINA DANG Rep #: [id number] : 1970 47 From: Gamal Coker MD PCP: Lindsey Campo MD Status: DIS CARMELO Y Location: [place] [address] Reason for Consult Date of Consultation: 08/11/18 Reason for Consultation: Chest discomfort History of Present Illness: ADINA DANG, is a 47 F who presents to the emergency room with complaints of left-sided chest pain. She said that she had been active with sweeping the floor and she started developing chest discomfort which has been going on for a few days. She describes as a heaviness not associated with any dizziness or diaphoresis no near syncope. She presented to the emergency room she was evaluated EKG was noted to be fairly normal. Since being admitted she has not had any further chest discomfort. She was last seen by her primary hot mill operator a few months ago. Her last transthoracic echocardiogram was performed on 02/14/2015. At that time her LV was normal with an LVEF of 65% with trivial MR, TR, and a trivial pericardial effusion with no tamponade physiology. Her estimated RV systolic pressure was 24 mmHg. He had decreased diastolic compliance. She underwent a pharmacologic stress nuclear imaging study that same day. There were concerns of myocardial ischemia involving the inferior apical and lateral apical segments. Her gated LVEF was 78%. She underwent a diagnostic cardiac catheterization on 02/19/2015 [facility]. A left ventriculogram was not performed secondary to decreased renal function/chronic renal insufficiency. The left main coronary artery was normal. The LAD had a distal apical-very small caliber vessel-with the appearance of 85% appearing stenosis, the LCx had minimal luminal irregularities, the RCA had a proximal to mid stented segment which was patent with the appearance of 25% distal in-stent appearing stenosis in the right AV segment had minimal luminal irregularities in the right PDA had mid 25% stenosis. There was a very small caliber side branch demonstrating proximal and mid subtotal occlusion. The recommendation was for continued medical management. Her previous PTCA/stent was performed at [facility] on 01/23/2014. At that time she had a report of successful stenting of an 80% mid RCA lesion with a drug-eluting stent and successful angioplasty of a 90% ostial stenosis in the proximal PDA. At the present time she states she is feeling well. She is not complaining of angina pectoris. She has had no ongoing episodes of CHF or pulmonary edema. There has been no issues with respect to episodes of palpitations. There has been no near syncope or syncope. She states she is doing well. Past Medical History Allergies/Adverse Reactions: Allergies adhesive tape Allergy (Severe, Verified 09/14/18 08:21) Unknown ephedrine [Ephedrine] Allergy (Verified 08/11/18 08:21) Other Home Medications: Ambulatory Orders Medication Instructions Recorded Aspirin [Aspirin, Baby] 81 mg PO DAILY@0800 02/18/15 Atorvastatin Calcium [Lipitor] 80 mg PO QHS 02/18/15 Colchicine 0.6 mg PO X1 PRN 02/18/15 Past Medical History (Chronic Problems): Chronic Problems (Last Updated 05/23/18 @ 16:33 by Cinda Rosario) HTN (hypertension) (Chronic) BP 126/64 No change in regimen Smoking Status: Never smoker Alcohol: None Drugs: None Review of Systems - Review of Systems General: Denies: Fever, Night Sweats, Fatigue Cardiovascular: Reports: Chest Discomfort, Chest Discomfort at Rest. Denies: Shortness of Breath, Orthopnea, PND, Peripheral Edema, Palpitations, Lightheadedness, Dizziness, Near Syncope, Syncope Respiratory: Denies: Cough, Sputum Production, Hemoptysis Gastrointestinal: Denies: Hematemesis, Hematochezia, Melena Genitourinary: Denies: Dysuria, Hematuria Skin: Denies: Rash Subjectve: Pleasant lady in no apparent distress Objective: Vital Signs Temp Pulse Resp BP Pulse Ox 98.2 F 91 16 136/71 H 98 08/11/18 10:05 08/11/18 11:15 08/11/18 10:05 08/11/18 10:05 08/11/18 10:05 Oxygen Delivery Method Room Air Weight: 189 lb 9.561 oz Body Mass Index (BMI) 28.8 General: Awake, Alert, Oriented x 3 HEENT: PERRL, EOMI, Sclera Non Icteric Neck: Supple, Good ROM, No Lymph Node Enlargement Lungs: Clear to auscultation Cardiovascular: Regular Rhythm, Normal S1, Normal S2, No Murmurs, No Rubs, No Gallops Vascular: No Carotid Bruits, Normal Femoral Pulses, Normal Radial Pulses, Normal Dorsalis Pedal Pulse, Normal Posterior Tibial Pulses Abdomen: Bowel Sounds Present, Soft, Non Tender, No HSM, No Organomegaly Extremities: No Cyanosis, No Clubbing, No edema Neurological: No Focal Motor or Sensory Deficit Rhythm: EKG: Normal sinus rhythm rate of 95 bpm and no acute changes Assessment/Plan 1. Chest pain. Ms. Pepper presents with recurrent chest discomfort. She has had previously abnormal stress test and she feels that this chest pain was similar to what she had in the past. Due to her previous abnormal stress test it is felt that repeating the stress test may generate another abnormality which may require that she undergo a repeat cardiac catheterization. After discussion with the patient was therefore felt that we should probably proceed with cardiac catheterization to reassess her coronary anatomy and depending on the findings further recommendations will be made. The patient is in agreement with the above will be performed via the radial approach. Cardiac catheterization today demonstrated the following: Normal left main coronary artery. Left anterior descending artery with moderate mid segment stenosis of approximately 50% in comparison to the previous cardiac catheterization from 2015 the above is essentially unchanged. Left circumflex artery with first obtuse marginal branch which bifurcates with mild luminal irregularities, and AV groove branch and distal trifurcating artery noted to be free of significant stenosis. Dominant right coronary artery with a main vessel demonstrating minimal coronary artery disease. An acute marginal branch which is small has 2 areas of 80% stenosis which is unchanged in comparison to before 2. Hypertension Patient has a history of known hypertension. At this time I recommend that we continue with the current medical therapy with no changes. 3. Hyperlipidemia We will continue with aggressive risk factor modification and lowering her lipid profile. Thank you for allowing me to participate in the care of your patient. Please don't hesitate to call if any issues arise 08/12/18 1406 <Electronically signed by Gamal Coker MD> Date Gamal Coker MD Cosigner Signature (if applicable): Date CC: Gamal Coker MD; Lindsey Campo MD Signed EMERGENCY DEPARTMENT Observed: 08/11/2018 Status: F Source: [place] SUMMARY 4:39 PM [facility]POS[facility]ORY [facility] Medical Records Department [address] [place] [address] Emergency Department Summary 08/11/18 0813 MR#: [id number] Acct: [id number] Name: ADINA DANG Rep #: [id number] : 1970 47 From: Shubham Olivas MD PCP: Lindsey Campo MD Status: ADM CARMELO - ER Visit Summary Date of Service: 08/11/18 Chief Complaint: Chest pain History of Present Illness: The patient is a 47 F presents to the emergency department with intermittent chest pain. The patient's of the symptoms for the past 5 days. She states that last week, she was sweeping her floor. She began to have a mild ache over her left chest. She states it would hurt to touch. She states that has gone away, but she is begun to have a tightness under her left breast. She states it comes in waves. It is relieved with nitro. She states of the same pain that she has had before when she had her prior myocardial infarction. She denies any recent stress test. She denies any change in medications. She denies any recent travel. She denies shortness of breath at baseline. The patient is blind. She does have a history of diabetes. Physical Examination: Vital signs reviewed General: Well-nourished, well-developed Head: Normocephalic, atraumatic Eyes: extraocular muscles intact Neck, supple, no lymphadenopathy Heart: Regular rate and rhythm Respiratory: No distress, clear bilaterally Abdomen: Soft, nontender, nondistended, no peritoneal signs Back: Nontender Extremities: Nontender, no edema, no cords Skin: Normal color no rash Neuro: Alert and oriented, no focal or lateralizing deficits Test Results: [] Emergency Department Course and Treatment: EKG was obtained on patient arrival. There is no acute ischemic change. The old EKG I have to compare to was from STEMI in 2013. It obviously looks improved compared to that. Patient had Nitropaste placed on her chest. She has remained pain-free. She was given aspirin. Chest x-ray shows no evidence of volume overload. Her cardiac enzymes are normal. The patient did have an abnormal heart catheterization in 2014 which showed some distal stenosis that was thought to not be amenable to stenting. She had an abnormal stress test prior to this that led to the heart catheterization. I did discuss the patient with Dr. Coker who is going to see the patient in consultation to determine next best plan of care for cardiac risk stratification. Patient was discussed with the hospitalist will be admitted. Treatment Plan: [] Disposition: Admission Impression: 1. Chest pain with history of coronary vascular disease This note was generated with [employer] dictation software. It may contain incorrect words, spelling, and punctuation that were not noted in review of the chart prior to signing ED Disposition - Plan for ED Patient: Chief Complaint: Chest Pain Referrals: Lindsey Campo MD [Primary Care Provider] - What to do if you have Problems For any increased pain, shortness of breath, bleeding, nausea or vomiting, chest pain, or any unexpected problems, contact your Primary Care Provider. Call [facility] ([phone]) or report to the closest Emergency Room. Call 911 if necessary. 08/11/18 1639 <Electronically signed by Shubham Olivas MD> Date Shubham Olivas MD Cosigner Signature (If Indicated): Date CC: Lindsey Campo MD DISCHARGE SUMMARY Observed: 08/11/2018 Status: F Source: [place] 4:08 PM [facility] Medical Records Department [address] [place] [id number] Discharge Summary 08/11/18 1601 MR#: [id number] Acct: [id number] Name: ADINA DANG Rep #: [id number] : 1970 47 From: Fredy Tubbs MD PCP: Lindsey Campo MD Status: ADM CARMELO Y Location: [place] [address] Discharge Date and Diagnosis Date of Admission: 08/11/18 Date of Discharge: 08/11/18 - Primary Discharge Diagnosis Chest pain - Secondary Discharge Diagnosis Chronic Problems (Last Updated 05/23/18 @ 16:33 by Cinda Rosario) HTN (hypertension) (Chronic) BP 126/64 No change in regimen Stage III CKD CAD s/p stents DM2 with microvascular complications Hospital Course and Treatment Operations: None Procedures: Cardiac catheterization Summary of Care Provided: The patient is a 47 year old F with h/o CAD who was admitted on account of recurrent chest pain and chest discomfort. Suspected to be having unstable angina and so cardiology was consulted. Given very high pretest probability for ACS patient underwent left heart catheterization by her hot mill operator Dr. Coker. Thankfully this only revealed stable moderate degree CAD in the LAD and RCA similar to previous [facility] in 2015 and patent intracoronary stents. cardiology has given the ok for patient to be discharged. Newly added medicine is Isosorbide mononitrate [] Discharge Diet: 2200 Calorie Control Diet Discharge Activity: Return to Normal Activity, No Restrictions Home Medications: Medications to take at Discharge Aspirin [Aspirin, Baby] 81 mg PO DAILY@0800 02/18/15 Atorvastatin Calcium [Lipitor] 80 mg PO QHS 02/18/15 Colchicine 0.6 mg PO X1 PRN 02/18/15 Glucagon 0.5 mg IM X1 PRN 02/18/15 Grape Seed Extract [Grape Seed] 25 mg PO DAILY 02/18/15 Levothyroxine Sodium [Levoxyl] 112 mcg PO DAILY 02/18/15 Magnesium 500 mg PO DAILY 02/18/15 Nitroglycerin [Nitrostat] 0.4 mg SUBLINGUAL Q5M PRN 02/18/15 Norethindrone [Nor-Q-D] 1 tab PO DAILY 02/18/15 insulin aspart U-100 100 unit/mL subcutaneous solution See Label Instructions SC TID ml 12/12/17 linagliptin 5 mg tablet 5 mg PO DAILY 12/12/17 clopidogrel 75 mg tablet 75 mg PO DAILY #90 tab 03/28/18 lisinopril 2.5 mg tablet 2.5 mg PO DAILY #90 tab 05/10/18 carvedilol 6.25 mg tablet 6.25 mg PO BID #180 tab 06/27/18 Cholecalciferol (VIT D3) [Vitamin D3] 1,000 unit PO DAILY 08/11/18 Insulin Degludec [Tresiba Flextouch U-200] 40 unit SQ DAILY 08/11/18 Isosorbide Mononitrate [Imdur] 30 mg PO DAILY 30 Days #30 tab 08/11/18 Following Prescrptions Were Given to Patient: Isosorbide Mononitrate [Imdur] 30 mg PO DAILY 30 Days #30 tab Primary Care Physician: Lindsey Campo MD [Primary Care Provider] - Disposition: Home Minutes spent on discharge:: 30 Patient Condition:: Good Medical Necessity - Tobacco Use Smoking Status: Never smoker Meaningful Use Info Meaningful Use Diagnoses (Choose all that apply): None applicable Code Visit OBSV E AND M: 15125 Observation care discharge 08/11/18 1608 <Electronically signed by Fredy Tubbs MD> Date Fredy Tubbs MD Cosigner Signature (if applicable): Date CC: Lindsey Campo MD; Fredy Tubbs M.D. Signed DISCHARGE INSTRUCTION Observed: 08/11/2018 Status: F Source: [facility] 3:58 PM [facility] REPOSITORY [facility] Medical Records Department [address] [place] [address] Instructions for Home/Discharge Instructions 08/11/18 1557 MR#: [id number] Acct: [id number] Name: ADINA DANG Rep #: [id number] : 1970 47 From: Fredy Tubbs MD PCP: Lindsey Campo MD Status: ADM CARMELO - Discharge Diagnoses Current Active Problems: chest pain Discharge Activity: Return to Normal Activity, No Restrictions Allergies/Adverse Reactions: Allergies adhesive tape Allergy (Severe, Verified 08/11/18 08:21) Unknown ephedrine [Ephedrine] Allergy (Verified 08/11/18 08:21) Other Medications to take at Discharge Aspirin [Aspirin, Baby] 81 mg PO DAILY@0800 02/18/15 Atorvastatin Calcium [Lipitor] 80 mg PO QHS 02/18/15 Colchicine 0.6 mg PO X1 PRN 02/18/15 Glucagon 0.5 mg IM X1 PRN 02/18/15 Grape Seed Extract [Grape Seed] 25 mg PO DAILY 02/18/15 Levothyroxine Sodium [Levoxyl] 112 mcg PO DAILY 02/18/15 Magnesium 500 mg PO DAILY 02/18/15 Nitroglycerin [Nitrostat] 0.4 mg SUBLINGUAL Q5M PRN 02/18/15 Norethindrone [Nor-Q-D] 1 tab PO DAILY 02/18/15 insulin aspart U-100 100 unit/mL subcutaneous solution See Label Instructions SC TID ml 12/12/17 linagliptin 5 mg tablet 5 mg PO DAILY 12/12/17 clopidogrel 75 mg tablet 75 mg PO DAILY #90 tab 03/28/18 lisinopril 2.5 mg tablet 2.5 mg PO DAILY #90 tab 05/10/18 carvedilol 6.25 mg tablet 6.25 mg PO BID #180 tab 06/27/18 Cholecalciferol (VIT D3) [Vitamin D] 1,000 unit PO DAILY 08/11/18 Insulin Degludec [Tresiba Flextouch U-200] 40 unit SQ DAILY 08/11/18 Primary Care Physician: Lindsey Campo MD [Primary Care Provider] - Test Results: Test results from this visit will be discussed in further detail at your follow-up appointment, if applicable. Proposed Discharge Date: 08/11/18 08/11/18 1558 <Electronically signed by Fredy Tubbs MD> Date Fredy Tubbs MD CC: Gamal Coker MD; Lindsey Campo MD HISTORY AND PHYSICAL Observed: 08/11/2018 Status: F Source: [facility] EXAM 3:55 PM [facility] REPOSITORY [facility] Medical Records Department [address] [place] [address] History and Physical 08/11/18 1546 MR#: [id number] Acct: [id number] Name: ADINA DANG Rep #: [id number] : 1970 47 From: Fredy Tubbs MD PCP: Lindsey Campo MD Status: ADM CARMELO Y Location: [place] [address] History of Present Illness Date of Admission: 08/11/18 Chief Complaint: chest discomfort The patient is a 47 year old F with DM2, stage III CKD and CAD with h/o angioplasty and stents. Presented to the hospital with a few days h/o chest pain/discomfort on and off and which responded to nitroglycerine. There was no orthopnea or PND. No dizziness, nausea or vomiting. Cardiology has been consulted[] Past Medical History Past Medical History (Chronic Problems): Chronic Problems (Last Updated 05/23/18 @ 16:33 by Cinda Rosario) HTN (hypertension) (Chronic) BP 126/64 No change in regimen Medical History: Medical History (Last Updated 05/23/18 @ 16:33 by Cinda Rosario) Presence of stent in coronary artery (Acute) Onset Date: 01/23/14 Z95.5 PTCA/MARCUS to mid RCA; angioplasty of prox PDA 01/23/[address] Glenn Merino at [facility] Atherosclerotic heart disease of [place] coronary artery without angina pectoris (Acute) I25.10 angioplasty to LAD; no stent @ [facility] 11/08/13; PTCA/MARCUS to mid RCA; angioplasty of prox PDA @ [facility] 01/23/14 Pericarditis (Acute) I31.9 ST elevation myocardial infarction (STEMI) of anterior wall (Acute) I21.09 Chronic kidney disease (Acute) N18.9 Hypothyroidism (Acute) E03.9 Hyperlipidemia (Acute) E78.5 Controlled. No change. 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 Allergies adhesive tape Allergy (Severe, Verified 08/11/18 08:21) Unknown ephedrine [Ephedrine] Allergy (Verified 08/11/18 08:21) Other Home Medications: Ambulatory Orders Medication Instructions Recorded Aspirin [Aspirin, Baby] 81 mg PO DAILY@0800 02/18/15 Atorvastatin Calcium [Lipitor] 80 mg PO QHS 02/18/15 Colchicine 0.6 mg PO X1 PRN 02/18/15 Surgical History: Surgical History (Last Reviewed 12/21/17 @ 16:26 by Wanda Schaffer) H/O angioplasty Z98.62 H/O breast augmentation Z98.82 H/O vitrectomy Z98.890 H/O: Z98.891 History of coronary angioplasty Onset Date: 11/08/13 Z98.61 angioplasty to LAD; no stent @ [facility] 11/08/13 History of left heart catheterization Z98.890 History of tonsillectomy Z98.890, Z90.89 S/P appendectomy Z90.49 Smoking Status: Never smoker Alcohol: None Drugs: None Review of Systems Eyes: Reports: - - blindness HEENT: Denies: Difficulty Hearing Cardiovascular: Reports: Chest Pain. Denies: Edema Respiratory: Denies: Cough Gastrointestinal: Denies: Abdominal Pain Neurological: Denies: Balance problems Hematologic/ Lymphatic: Denies: Petechiae VTE Information - Inpt Only VTE Present on Admission: Yes - Physical Exam General: Alert, Oriented x3, Cooperative, No apparent distress, Well developed, Well nourished HEENT: Atraumatic Oral: Moist Mucosa Neck: Supple Lungs: - - non labored Abdomen: - - MWR Extremities: No edema Skin: No rashes Neurological: Cranial nerves II-XII grossly intact, Neuro grossly intact Psych/Mental Status: Normal Affect, Appropriate, Alert and oriented to time, place, person, mood and affect Vital Signs Temp Pulse Resp BP Pulse Ox 98.3 F 83 16 141/69 H 99 08/11/18 15:10 08/11/18 15:40 08/11/18 15:40 08/11/18 15:40 08/11/18 15:40 Oxygen Delivery Method Room Air Weight: 86 kg Body Mass Index (BMI) 28.8 POC Glucose POC Glucose 181 H Assessment/Plan All Active Problems (Last Updated 05/23/18 @ 16:33 by Cinda Rosario) Presence of stent in coronary artery (Acute 01/23/14) Atherosclerotic heart disease of [place] coronary artery without angina pectoris (Acute) Pericarditis (Acute) ST elevation myocardial infarction (STEMI) of anterior wall (Acute) Chronic kidney disease (Acute) Hypothyroidism (Acute) Hyperlipidemia (Acute) Diabetes type 1, controlled (Acute) 1. Chest pain. Possible unstable angina. Cardiology has been consulted and plans to take patient for left hear cath. Pain free at this time and will continue on tele 2. DM2. Will resume home regimen of insulin. Will give basal insulin now but hold Humalog until patient starts and is allowed to eat 3. Stage III CKD. 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 Signed BEDSIDE GLUCOSE Collected: 08/11/2018 Status: F Source: [facility] 11:27 AM [facility] REPOSITORY TYPE CODE TESTS RESULT OUT OF REFERENCE UNITS RANGE LAB L501.080 70-110 mg/dL High BEDSIDE GLU 181 Result Comment: MANAGEMENT OF PATIENT CARE PER NURSING PROTOCOL Performed By: #### L501.080 #### [facility] Point of Care [facility] [place] [address] CBC W/DIFF, AUTOMATED Collected: 08/11/2018 Status: F Source: [facility] 8:11 AM [facility] REPOSITORY TYPE CODE TESTS RESULT OUT OF RANGE REFERENCE UNITS LAB L100.1000 4.4-11.0 K/mm3 Normal WBC 8.4 LAB L100.1200 4.2-5.4 M/mm3 Low RBC 4.10 LAB L100.1300 12.0-15.0 g/dl Low HGB 10.3 LAB L100.1400 37-47 % Low HCT 32.5 LAB L100.1500 81-99 fL Low MCV 79.3 LAB L100.1600 27.0-32.0 pg Low MCH 25.1 LAB L100.1700 32-36 g/gl Low MCHC 31.7 LAB L100.1810 11.6-14.6 % High RDW CV 15.6 LAB L100.1820 35.1-43.9 fl High RDW SD 44.6 LAB L100.1900 150-450 K/mm3 Normal PLT 271 LAB L100.2000 6.2-12.0 fl Normal MPV 11.3 LAB L100.2100 47-70 % Normal NEUT% 60.9 LAB L100.2200 19-41 % Normal LY% 25.7 LAB L100.2300 0-10 % High MONO% 10.9 LAB L100.2400 0-5 % Normal EO% 1.7 LAB L100.2500 0-1 % Normal BASO% 0.7 LAB L100.2550 0.0-0.9 % Normal IM GRAN % 0.100 Result Comment: IG% - Immature Granulocytes (promyelocytes, myelocytes and metamyelocytes) > 1% indicates that a LEFT SHIFT is Present. LAB L100.2620 2.0-7.7 X10 3/uL Normal Absolute Neut 5.1 LAB L100.2720 0.83-4.51 X10 3/ul Normal Absolute Lymph 2.15 Performed By: #### L100.0100 #### [facility] [address] [place], [address] BASIC METABOLIC Collected: 08/11/2018 Status: F Source: [facility] PROFILE ([facility]) 8:11 AM [facility] REPOSITORY TYPE CODE TESTS RESULT OUT OF RANGE REFERENCE UNITS LAB L501.0100 74-106 mg/dL High GLU 171 Result Comment: Fasting Glucose result greater than or equal to 126 mg/dL suggests DIABETES MELLITUS per A.D.A. criteria. Please note revised GLUCOSE reference range effective 2017. LAB L501.1000 7-18 mg/dL High BUN 24 LAB L501.1100 0.55-1.02 mg/dL High CREAT,SERUM 1.66 Result Comment: The validity of the calculated GFR AND GFRAA in patients over 70 years has not been determined. Clinical correlation is essential. LAB L501.1110 >60 mL/min Low EST GFR 35 Result Comment: Non- GFR Calc LAB L501.1115 >60 mL/min Low EST GFR - AA 42 Result Comment: GFR Calc LAB L501.1255 ml/min Normal Estimated CRCL 41.81 LAB L501.1300 10-20 RATIO Normal BUN/CRE 14.5 LAB L501.2200 8.5-10 mg/dL Normal .1 CA 8.6 LAB L501.5300 136-14 mmol/L Normal 5 NA 141 LAB L501.5600 3.5-5. mmol/L Normal 1 K 4.0 LAB L501.5900 98-107 mmol/L High CL 108 LAB L501.6100 21.0-3 mmol/L Normal 2.0 CO2 24.0 LAB L501.6200 5-15 Normal GAP 9 Performed By: #### L500.2500, L501.4010 #### [facility] [address] [place], [address] TROPONIN-I Collected: 08/11/2018 Status: F Source: [facility] 8:11 AM [facility] REPOSITORY TYPE CODE TESTS RESULT OUT OF RANGE REFERENCE UNITS LAB L501.4010 <0.045 ng/mL Normal < 0.015 TROPONIN-I Result Comment: TROPONIN-I EXPECTED VALUES <0.045 Negative 0.045 - 0.590 Consistent with Cardiac Damage > OR = 0.600 Critical Value Not every elevated troponin is indicative of IN. These values should be used with clinical judgement in examining the patient's clinical picture for diagnosis. To establish a diagnosis of IN versus myocardial injury, there must be a demonstrated rise and/or fall in the troponin values, in addition to ischemic symptoms, EKG changes, new regional wall motion abnormality, and/or angiographical evidence. PLEASE NOTE: REFERENCE RANGES EDITED 18 Performed By: #### L500.2500, L501.4010 #### [facility] [address] [place], [place], [address] ,SERUM,HCG QUALI. Collected: Status: F Source: [facility] 08/11/2018 8:11 AM [facility] REPOSITORY Order Comment: ADD ON TYPE CODE TESTS RESULT OUT OF REFERENCE UNITS RANGE LAB L700.6700 =>Qualitative mIU/mL Normal HCG Qual < 1 triggr LAB L700.7000 0-9 Nonpreg Negative Normal HCGSQUAL NEGATIVE Performed By: #### L700.6800 #### [facility] [address] [place], [place], [address] CHEST 1 VIEW Observed: 08/11/2018 Status: F Source: [place] (PORTABLE) 8:10 AM [facility] REPOSITORY [facility] Imaging Services [address] [place] [address] Chest 1 View (Portable) MR#: [id number] Acct: [id number] Name: ADINA DANG Rep #: [id number] : 1970 F 47 From: Akash Sarabia MD PCP: Lindsey Campo MD Status: REG ER Study: Chest 1 View (Portable) Date of Exam: 08/11/18 Exam# [id number] Ordering Dr: Shubham Olivas MD STUDY: X-RAY CHEST REASON FOR EXAM: Female, 47 years old. Chest pain. TECHNIQUE: Single AP portable view of the chest. COMPARISON: Comparison is made with prior study dated February 17, 2015. FINDINGS: EKG electrodes are seen. The lungs are clear and expanded. There is no demonstrated pleural abnormality. Normal size heart. Normal mediastinum and michael. Normal visualized pulmonary arteries. Normal visualized aortic arch and descending thoracic aorta. Normal visualized thoracic spine. Normal visualized ribs, clavicles, and shoulders. There is no demonstrated abnormality of the visualized soft tissue structures of the upper abdomen. RAD/Chest 1 View (Portable) IMPRESSION: Normal x-ray examination of the chest. Electronically Signed: Akash Sarabia MD at 8:59 EDT Tel [phone], Service support , CC: Lindsey Campo MD; Shubham Olivas MD Roaster Supervisor: Signed HEMOGLOBIN A1C Collected: 05/13/2018 Status: F Source: [place] 10:23 AM [facility] REPOSITORY Order Comment: Order Date: 03/16/18 Order Info: 4548-4 - A1C TYPE CODE TESTS RESULT OUT OF RANGE REFERENCE UNITS LAB L501.9985 4.2-6.3 % High HGB A1C 14.0 Performed By: #### L501.9985, L500.4050, L501.9520, L506.1000 #### [facility] [address] [place], [address] COMPREHENSIVE METABOLIC Collected: 05/13/2018 Status: F Source: [place] 10:23 AM [facility] REPOSITORY Order Comment: Order Date: 03/16/18 Order Info: 0786-1 - CMP Order Info: 3016-3 - TSH TYPE CODE TESTS RESULT OUT OF RANGE REFERENCE UNITS LAB L501.0100 74-106 mg/dL High GLU 233 Result Comment: Glucose result greater than or equal to 200 mg/dL suggests DIABETES MELLITUS per A.D.A. criteria. Please note revised GLUCOSE reference range effective 2017. LAB L501.1000 7-18 mg/dL High BUN 26 LAB L501.1100 0.55-1.02 mg/dL High CREAT,SERUM 1.55 Result Comment: The validity of the calculated GFR AND GFRAA in patients over 70 years has not been determined. Clinical correlation is essential. LAB L501.1110 >60 mL/min Low EST GFR 38 Result Comment: Non- GFR Calc LAB L501.1115 >60 mL/min Low EST GFR - AA 46 Result Comment: GFR Calc LAB L501.1300 10-20 RATIO Normal BUN/CRE 16.8 LAB L501.1500 6.4-8.2 g/dL T Normal PROT 6.7 LAB L501.1800 3.2-5.0 g/dL Low ALB 3.1 LAB L501.1950 2.2-4.2 g/dL Normal GLOB 3.6 LAB L501.2000 0.9-2.4 RATIO Normal A/G 0.9 LAB L501.2200 8.5-10.1 mg/dL CA Normal 8.9 LAB L501.4100 15-37 U/L Low AST 14 LAB L501.4305 45-117 U/L Normal ALK P 82 LAB L501.4405 13-56 U/L Normal ALT 17 LAB L501.4600 0.20-1.00 mg/dL T Normal BILI 0.30 LAB L501.5300 136-145 mmol/L NA Normal 136 LAB L501.5600 3.5-5.1 mmol/L K Normal 4.0 LAB L501.5900 98-107 mmol/L CL Normal 104 LAB L501.6100 21.0-32.0 mmol/L Normal CO2 26.0 LAB L501.6200 5-15 Normal GAP 6 Performed By: #### L501.9985, L500.4050, L501.9520, L506.1000 #### [facility] [address] [place], [address] THYROID STIM HORMONE Collected: 05/13/2018 Status: F Source: [place] (TSH) 10:23 AM [facility] REPOSITORY Order Comment: Order Date: 03/16/18 Order Info: [id number] - CMP Order Info: 3016-3 - TSH TYPE CODE TESTS RESULT OUT OF RANGE REFERENCE UNITS LAB L501.9520 0.358-3.74 uIU/mL Normal TSH 2.44 Performed By: #### L501.9985, L500.4050, L501.9520, L506.1000 #### [facility] [address] [place], [place], [address] VITAMIN D,25 HYDROXY Collected: 05/13/2018 Status: F Source: [place] 10:23 AM [facility] REPOSITORY Order Comment: Order Date: 03/16/18 Order Info: 38461-8 - VITD25 TYPE CODE TESTS RESULT OUT OF REFERENCE UNITS RANGE LAB L506.1000 29.95-100.01 ng/mL Low Vitamin D 25.9 25-OH Result Comment: Vitamin D 25(OH) Status Range Deficiency <20 ng/mL (50nmol/L) Insuffciency 20 - 30 ng/mL (50 - 75 nmol/L) Sufficiency 30 - 100 ng/mL (75 - 250 nmol/L) Toxicity >100 ng/mL (>250 nmol/L) Performed By: #### L501.9985, L500.4050, L501.9520, L506.1000 #### [facility] [address] [place], [address] LIVER PROFILE Collected: 05/13/2018 Status: F Source: [place] 10:22 AM [facility] REPOSITORY Order Comment: Order Date: 10/07/17 Order Info: 0788-1 - *Hepatic Function Panel Order Info: [id number] - *Lipid Profile CC PCP Comments: 12 hours fasting, may have water. TYPE CODE TESTS RESULT OUT OF RANGE REFERENCE UNITS LAB L501.1500 6.4-8.2 g/dL Normal T PROT 6.8 LAB L501.1800 3.2-5.0 g/dL Low ALB 3.1 LAB L501.1950 2.2-4.2 g/dL Normal GLOB 3.7 LAB L501.4100 15-37 U/L Low AST 12 LAB L501.4305 45-117 U/L Normal ALK P 86 LAB L501.4405 13-56 U/L Normal ALT 20 LAB L501.4600 0.20-1.00 mg/dL Normal T BILI 0.30 LAB L501.4700 0.00-0.30 mg/dL Normal D BILI 0.09 Performed By: #### L500.3400 #### [facility] [address] [place] [place], [address] LIPID PROFILE Collected: 05/13/2018 Status: F Source: [place] 10:22 AM [facility] REPOSITORY Order Comment: Order Date: 10/07/17 Order Info: [id number] - *Hepatic Function Panel Order Info: [id number] - *Lipid Profile CC PCP Comments: 12 hours fasting, may have water. TYPE CODE TESTS RESULT OUT OF RANGE REFERENCE UNITS LAB L501.4900 200 mg/dL Normal CHOL 129 Result Comment: <200 mg/dL Desirable 200-240 mg/dL Borderline >240 mg/dL High Risk LAB L501.5000 mg/dL Normal TRIG 148 Result Comment: The drugs N-Acetylcysteine and Metamizole may falsely depress this assay. Serum Triglycerides Reference Interval Normal <150 mg/dL Borderline high 150 - 199 mg/dL High 200 - 499 mg/dL Very High > or = 500 mg/dL LAB L501.6400 mg/dL Normal HDL 47 Result Comment: The drugs N-Acetylcysteine and Metamizole may falsely depress this assay. Reference Range HDL <40 mg/dL Low HDL Cholesterol HDL >or= 60 mg/dL High HDL Cholesterol LAB L501.6500 0-130 mg/dL Normal LDL 52 LAB L501.6600 5-40 mg/dL Normal VLDL 30 Performed By: #### L500.4100 #### [facility] [address] [place], [address] ENDOCRINOLOGY VISIT Observed: 2017 Status: F Source: [place] REPORT 7:00 PM [facility] REPOSITORY [facility] [address] [place] [address] OFFICE VISIT Date of Service: 12/21/17 MR#: [id number] Acct: [id number] Name: ADINA DANG Rep #: [id number] : 1970 Provider: Mariann Byrd NP Age/Sex: 46/F Location: [facility] Status: Signed HPI History of present illness Crystal Dang is a 47 year old female who presents for follow up of diabetes type 1. 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 Currently continues on MDI. Levemir 24 units twice daily and meal coverage using I/C ratio. Reports her A1c recently was 14.4 . I have seen her once in recent times. Did not bring her meter or BG readings for review at last visit or for this visit. She is interested in an insulin pump. Reports overall she feels well. Denies issues with sleep, n/v, diarrhea or skin issues. No recent CP or SOB. Does have URI at time of visit At time of visit: -Pt denies symptoms of hypertensive emergency (CP,SOB,ROSA, or blurred vision) and hypotension(dizziness or lightheadedness) -Pt denies symptoms of hypoglycemia ( sweaty, confusion, anxiety, tremor, hunger, palpitations) and hyperglycemia ( polydipsia, polyuria) -Pt denies potential medication adverse effect. Hypoglycemia Aware of hypoglycemia: When awake Able to self treat low BG: Yes Frequent low Blood sugar: No Has supply of glucagon: Yes Diet 3 meals Understands carb counting Type: type 1, insulin-requiring Weight and fatigue symptoms: Denies snoring Cardiopulmonary symptoms: Denies chest pain at rest, dyspnea on exertion, lightheadedness or myalgias GI symptoms: Denies constipation, diarrhea, nausea/dyspepsia or vomiting Exam Const General: comfortable, no acute distress Nutritional Appearance: average body habitus Orientation: oriented x3 HENMT Head: normal to inspection, atraumatic Ears: other (Legally blind) Nose: external nose normal Mouth: oral mucosae normal, moist mucous membranes Teeth and gingiva: dentition normal Eyes Alignment and Position: other (Pt is blind.) Neck Neck: normal visual inspection Neck mass: No Chest Chest palpation AND inspection: deferred Resp Effort AND Inspection: normal respiratory effort, able to speak in complete sentences, symmetric chest movement Auscultation: Bilateral: Clear to Auscultation Cardio Rate: regular rate Rhythm: regular rhythm Heart Sounds: S1 normal GI Inspection: normal to inspection Palpation: soft, no guarding General: deferred Skin General: no rashes or lesions noted Wounds: no wounds Diabetic Foot Pulses: L dorsalis pedis pulse: normal, R dorsalis pedis pulse: normal Monofilament test: Left foot: abnormal, Right foot: abnormal Neuro General: moves all extremities Speech: speech normal Gait: normal gait Extrem General: normal to inspection, pedal edema Psych Appearance: well kempt Mood: congruent mood Affect: normal affect Speech and Movement: speech and movement normal Attitude: cooperative Thought Process: normal Thought Content: normal Judgment: judgment good Intake Vital Signs12/21/17 Height 5 ft 9 in 12/21/17 Weight: 185 lb 12/21/17 Body Mass Index (BMI) 27.3 Intake Visit Reasons: 3 M FU 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 Required: No Accompanied by: Self Is patient in pain?: No Allergies adhesive tape Allergy (Severe, Verified 12/21/17 16:25) Unknown ephedrine [Ephedrine] Allergy (Verified 12/21/17 16:25) Other Medications Aspirin [Aspirin, Baby] 81 mg PO DAILY@0800 02/18/15 [History Confirmed 12/21/17] Atorvastatin Calcium [Lipitor] 80 mg PO QHS 02/18/15 [History Confirmed 12/21/17] Carvedilol [Coreg] 6.25 mg PO BID 02/18/15 [History Confirmed 12/21/17] Clopidogrel Bisulfate [Plavix] 75 mg PO DAILY 02/18/15 [History Confirmed 12/21/17] Colchicine 0.6 mg PO X1 PRN 02/18/15 [History Confirmed 12/21/17] Glucagon 0.5 mg IM X1 PRN 02/18/15 [History Confirmed 12/21/17] Grape Seed Extract [Grape Seed] 25 mg PO DAILY 02/18/15 [History Confirmed 12/21/17] Levothyroxine Sodium [Levoxyl] 112 mcg PO DAILY 02/18/15 [History Confirmed 12/21/17] Magnesium 500 mg PO DAILY 02/18/15 [History Confirmed 12/21/17] Nitroglycerin [Nitrostat] 0.4 mg SUBLINGUAL Q5M PRN 02/18/15 [History Confirmed 12/21/17] Norethindrone [Nor-Q-D] 1 tab PO DAILY 02/18/15 [History Confirmed 12/21/17] cholecalciferol (vitamin D3) 1,000 unit capsule 1,000 unit PO QDAY cap 12/12/17 [History Confirmed 12/21/17] insulin aspart 100 unit/mL subcutaneous solution See Label Instructions SC TID ml 12/12/17 [History Confirmed 12/21/17] insulin detemir 100 unit/mL subcutaneous solution 24 unit SC BID ml 12/12/17 [History Confirmed 12/21/17] linagliptin 5 mg tablet 5 mg PO QDAY 12/12/17 [History Confirmed 12/21/17] lisinopril 5 mg tablet 2.5 mg PO DAILY tab 12/16/17 [History Confirmed 12/21/17] Is last menstrual period known: No Post menopausal: No Patient : No Nurse's Note: DIABETES TYPE 1 DX : LAST EXACERBATION : DKA : HYPOGLYCEMIC EPISODE : ER VISIT : BLOOD SUGARS : LOW : 172 HIGH : 400 PFSH Medical History Presence of stent in coronary artery (Acute 01/23/14) Atherosclerotic heart disease of [place] coronary artery without angina pectoris (Acute) Pericarditis (Acute) ST elevation myocardial infarction (STEMI) of anterior wall (Acute) Chronic kidney disease (Acute) Hypothyroidism (Acute) Hyperlipidemia (Acute) HTN (hypertension) (Chronic) Diabetes type 1, controlled (Acute) Anxiety (Acute) Asthma (Acute) Blindness (Acute) Diabetic retinopathy (Acute) Family history of hypertension (Acute) Hearing loss (Acute) Hives (Acute) Rash (Acute) Retinopathy (Acute) Rheumatoid arthritis (Acute) Amputation of left middle finger (Resolved) Surgical History H/O angioplasty (Resolved) H/O breast augmentation (Resolved) H/O vitrectomy (Resolved) H/O: (Resolved) History of coronary angioplasty (Resolved 11/08/13) History of left heart catheterization (Resolved) History of tonsillectomy (Resolved) S/P appendectomy (Resolved) Family History Mother CAD (coronary artery disease) Brother Hypertension Melanoma Father Heart disease Unknown Diabetes Endometriosis Asthma Environmental allergies Hypertension Glaucoma Grandmother Lung cancer Social History Smoking Status: Never smoker second hand exposure: No alcohol intake: current alcohol intake frequency: other substance use type: does not use ROS Const Constitutional: Positive for chills and fatigue; no anorexia, body ache, fever(s), frequent falls, decreased energy, malaise, night sweats, weakness, weight change, sleep problems, abnormal sleep pattern, change in appetite, other, headache(s), snoring or excessive sweating Eyes Eyes: Positive for other (PT BLIND) ENT ENT: Positive for nasal discharge and post nasal drip; no abnormal hearing, ear pain, ear discharge, ear pressure, hearing loss, tinnitus, dizziness/vertigo, balance problems, nosebleed/epistaxis, nasal congestion, nasal obstruction, nose pain, sinus pressure, sinus pain, headache(s), facial pain, dental pain, dry mouth, bad breath, hoarseness, lip swelling, mouth lesions, mouth pain, sore throat, tongue swelling, throat swelling, other, difficulty swallowing or neck pain Resp Respiratory: Positive for cough; no change in phlegm color, chest congestion, excessive phlegm production, hemoptysis, pain on inspiration, shortness of breath, pain with cough, snoring, stridor, wheezing or other Cardio Cardiology: No chest pain at rest, chest pain with exertion, leg pain with exertion, excessive sweating, shortness of breath, dyspnea on exertion, generalized swelling, irregular heart rhythm, lightheadedness, orthopnea, radiating jaw, neck or arm pain, fast heart rate, slow heart rate, palpitations or other Gastro GI: No abdominal pain, belching, bloating, change in bowel habits, change in stool character, coffee ground emesis, constipation, cramping, diarrhea, heartburn, difficulty swallowing, feeling full early, excessive flatus, incontinent of stools, Vomiting blood/hematemesis, blood in stool, loose stools, Black,tarry stools, nausea/dyspepsia, pain with swallowing, vomiting or other Genitourinary-Female: No difficulty urinating, burning urination, painful urination, urinary incontinence, urinary frequency, urinary urgency, urinary hesitancy, urinary retention, blood in urine, Frequent nighttime urination/ nocturia, post void dribbling, suprapubic fullness, side pain, sexual problems, genital lesions, genital itching, hot flashes, abnormal periods, abnormal vaginal bleeding, absent period, painful periods, light periods, heavy periods, difficulty getting , painful intercourse, pelvic pain, vaginal dryness, vaginal odor, Vaginal Itching or other Musc Musculoskeletal: No abnormal walking, joint pain, back pain, deformity, joint swelling, limited range of motion, loss of height, muscle cramps, muscle weakness, decreased muscle mass, body aches, neck pain, numbness, radiating pain into limb, stiffness, tingling or other Neuro Neurology: No frequent falls, weakness, abnormal hearing, headache(s), abnormal walking, numbness or tingling Psych Psychiatric: No abnormal sleep pattern, No change in appetite Endo Endocrine: Positive for fatigue; no other or excessive sweating Aller/Imm Allergy/Immunologic: No lip swelling, tongue swelling, throat swelling or wheezing Assessment AND Plan Problems 1. Mixed hyperlipidemia E78.2 2. Essential hypertension I10 3. Diabetes mellitus type 1, uncontrolled, with complications E10.8; E10.65 Plan Can not do anything to control BG readings until I have reviewed the data. Pt is ask to email to me. Control portions Food selections should be healthy Choose more low carb vegetables Avoid snacks and desserts. Drink water Exercise daily Eat more fresh foods, not canned or processed Eat more slowly 1. Please schedule follow up in 3 months. 2. Lab work one week before appointment. 3. Discussed importance of regular exercise and recommend starting or continuing a regular exercise program for good health. 4. The patient was encouraged to lose weight for good health 5. The importance of monitoring blood sugar regularly was reviewed. 6. The importance of monitoring the HBA1c level regularly was reviewed. 7. The importance of prper foot care and regularly checking feet to prevent sores and loss of limbs was reviewed. 8. The importance of keeping BP at or below 130/80 to prevent stroke, heart attacks, kidney failure, blindness was reviewed. Spent approximately 30 minutes with patient with over 50% of time spent in discussion and counseling regarding medication adjustment, symptoms and treatment of hypoglycemia, diet adherence, and checking BG before driving. Orders Orders: Coding Level of Care Code Off vis,est,level 4 Diagnoses Mixed hyperlipidemia E78.2 Hyperlipidemia type: mixed hyperlipidemia Essential hypertension I10 Hypertension type: essential hypertension Diabetes mellitus type 1, uncontrolled, with complications E10.8; E10.65 Time Spent (min) 30 12/28/17 1900 <Electronically signed by Mariann RILEY> Date Mariann RILEY Cosigner Signature: Date (if applicable) CC: CARDIOLOGY VISIT Observed: 12/21/2017 Status: F Source: [facility] REPORT 5:59 PM [facility] REPOSITORY [facility]. [address] [place] [address] OFFICE VISIT Date of Service: 12/21/17 MR#: [id number] Acct: [id number] Name: ADINA DANG Rep #: [id number] : 1970 Provider: Sanford Dave MD Age/Sex: 46/F Location[place] [facility] [place]: Signed HPI 6 M FU: Details: ADINA DANG, is a 46 F who presents to the office today for for outpatient cardiovascular follow-up with respect to her history of underlying CAD, LAD PTCA (no stent) and RCA PTCA/stent-2013, ischemic mediated cardiomyopathy, hyperlipidemia, and hypertension. Her last transthoracic echocardiogram was performed on 02/14/2015. At that time her LV was normal with an LVEF of 65% with trivial MR, TR, and a trivial pericardial effusion with no tamponade physiology. Her estimated RV systolic pressure was 24 mmHg. He had decreased diastolic compliance. She underwent a pharmacologic stress nuclear imaging study that same day. There were concerns of myocardial ischemia involving the inferior apical and lateral apical segments. Her gated LVEF was 78%. She underwent a diagnostic cardiac catheterization on 02/19/2015 [facility]. A left ventriculogram was not performed secondary to decreased renal function/chronic renal insufficiency. The left main coronary artery was normal. The LAD had a distal apical-very small caliber vessel-with the appearance of 85% appearing stenosis, the LCx had minimal luminal irregularities, the RCA had a proximal to mid stented segment which was patent with the appearance of 25% distal in-stent appearing stenosis in the right AV segment had minimal luminal irregularities in the right PDA had mid 25% stenosis. There was a very small caliber side branch demonstrating proximal and mid subtotal occlusion. The recommendation was for continued medical management. Her previous PTCA/stent was performed at [facility] on 01/23/2014. At that time she had a report of successful stenting of an 80% mid RCA lesion with a drug-eluting stent and successful angioplasty of a 90% ostial stenosis in the proximal PDA. At the present time she states she is feeling well. She is not complaining of angina pectoris. She has had no ongoing episodes of CHF or pulmonary edema. There has been no issues with respect to episodes of palpitations. There has been no near syncope or syncope. She states she is doing well. Her lipid lab history has been reviewed. Overall she has been under reasonably good control. Intake Vital Signs12/21/17 Height 5 ft 9 in 12/21/17 Weight: 185 lb 12/21/17 Body Mass Index (BMI) 27.3 12/21/17 Blood Pressure 126/64 Intake Visit Reasons: 6 M FU Allergies adhesive tape Allergy (Severe, Verified 12/21/17 16:25) Unknown ephedrine [Ephedrine] Allergy (Verified 12/21/17 16:25) Other Medications Aspirin [Aspirin, Baby] 81 mg PO DAILY@0800 02/18/15 [History Confirmed 12/21/17] Atorvastatin Calcium [Lipitor] 80 mg PO QHS 02/18/15 [History Confirmed 12/21/17] Carvedilol [Coreg] 6.25 mg PO BID 02/18/15 [History Confirmed 12/21/17] Clopidogrel Bisulfate [Plavix] 75 mg PO DAILY 02/18/15 [History Confirmed 12/21/17] Colchicine 0.6 mg PO X1 PRN 02/18/15 [History Confirmed 12/21/17] Glucagon 0.5 mg IM X1 PRN 02/18/15 [History Confirmed 12/21/17] Grape Seed Extract [Grape Seed] 25 mg PO DAILY 02/18/15 [History Confirmed 12/21/17] Levothyroxine Sodium [Levoxyl] 112 mcg PO DAILY 02/18/15 [History Confirmed 12/21/17] Magnesium 500 mg PO DAILY 02/18/15 [History Confirmed 12/21/17] Nitroglycerin [Nitrostat] 0.4 mg SUBLINGUAL Q5M PRN 02/18/15 [History Confirmed 12/21/17] Norethindrone [Nor-Q-D] 1 tab PO DAILY 02/18/15 [History Confirmed 12/21/17] cholecalciferol (vitamin D3) 1,000 unit capsule 1,000 unit PO QDAY cap 12/12/17 [History Confirmed 12/21/17] insulin aspart 100 unit/mL subcutaneous solution See Label Instructions SC TID ml 12/12/17 [History Confirmed 12/21/17] insulin detemir 100 unit/mL subcutaneous solution 24 unit SC BID ml 12/12/17 [History Confirmed 12/21/17] linagliptin 5 mg tablet 5 mg PO QDAY 12/12/17 [History Confirmed 12/21/17] lisinopril 5 mg tablet 2.5 mg PO DAILY tab 12/16/17 [History Confirmed 12/21/17] [facility] Medical History Presence of stent in coronary artery (Acute 01/23/14) Atherosclerotic heart disease of [place] coronary artery without angina pectoris (Acute) Pericarditis (Acute) ST elevation myocardial infarction (STEMI) of anterior wall (Acute) Chronic kidney disease (Acute) Hypothyroidism (Acute) Hyperlipidemia (Acute) HTN (hypertension) (Chronic) Diabetes type 1, controlled (Acute) Anxiety (Acute) Asthma (Acute) Blindness (Acute) Diabetic retinopathy (Acute) Family history of hypertension (Acute) Hearing loss (Acute) Hives (Acute) Rash (Acute) Retinopathy (Acute) Rheumatoid arthritis (Acute) Amputation of left middle finger (Resolved) Surgical History H/O angioplasty (Resolved) H/O breast augmentation (Resolved) H/O vitrectomy (Resolved) H/O: (Resolved) History of coronary angioplasty (Resolved 11/08/13) History of left heart catheterization (Resolved) History of tonsillectomy (Resolved) S/P appendectomy (Resolved) Family History Mother CAD (coronary artery disease) Brother Hypertension Melanoma Father Heart disease Unknown Diabetes Endometriosis Asthma Environmental allergies Hypertension Glaucoma Grandmother Lung cancer Social History Smoking Status: Never smoker second hand exposure: No alcohol intake: current alcohol intake frequency: other substance use type: does not use ROS Const Const: Negative for fatigue, weakness, weight gain, weight loss, frequent falls or excessive sweating Eyes Eyes: Negative for change in vision, blurry vision or transient loss of vision ENT ENT: Negative for dizziness, Negative for balance problems Cardio Chest Pain: No Palpitations: Positive for No Edema: None Muscle aches with walking: None Additional Details: Patient reports that she has been well. Resp Respiratory: Negative for SOB with activity or SOB at rest GI GI: Negative vomiting or vomiting blood/hematemesis : Negative for hematuria Musc Musc: Negative for balance problems, muscle aches/ myalgia, muscle weakness or joint pain Skin Skin: Negative non-healing lesions or rash Neuro Neuro: Negative for weakness, Negative for blurry vision, Negative for dizziness, Negative for lightheadedness, Negative for frequent falls, Negative for orthostatic symptoms Josh Hematologic/Lymphatic: Negative for easy bleeding Endo Endo: Negative for fatigue or excessive sweating Psych Psych: Negative for anxiety or depression Allergy Allergy/Immunology: Negative for hives, Negative for rash Cardiology Exam Const Appearance: cooperative, healthy appearing, comfortable, no acute distress, well developed and well groomed Nutritional Appearance: average body habitus Orientation: alert, awake and oriented x3 Head Head: normal to inspection, normocephalic and atraumatic Ears: hearing grossly normal bilaterally Nose: external nose normal Face and Sinus: face symmetric Mouth: oral mucosae normal Teeth and gingiva: dentition normal Eyes General: appearance normal, both eyes and all related structures (legally blind; wearing sunglasses) Neck Neck: normal visual inspection and full ROM Carotids: normal carotid upstroke Chest Chest inspection: normal inspection of the chest and symmetric chest movement Auscultation: Bilateral: Clear to Auscultation Cardio Palpation: normal PMI Rhythm: regular rhythm Heart sounds: S1 normal and S2 normal Murmur: Grade 2/6, harsh, mid systolic, LLSB, LVOT and sternal notch GI GI: normal to inspection, soft, no hepatosplenomegaly and bowel sounds present Neuro General: alert, awake and oriented x3 Skin Skin: no rashes or lesions noted Extremities Pulses: Normal: Right Radial Pulse, Left Radial Pulse Lower Extremity Edema: None: Bilateral Psych Psychological: normal affect Assessment AND Plan 1. Atherosclerotic heart disease of [place] coronary artery without angina pectoris I25.10 angioplasty to LAD; no stent @ [facility] 11/08/13; PTCA/MARCUS to mid RCA; angioplasty of prox PDA @ [facility] 01/23/14 Plan At the present time she appears to be doing reasonably well without any acute symptoms or adverse events. She is going to continue her current risk factor modification and medical management. It was not felt she required additional cardiovascular evaluation or therapy at this time. 2. Presence of stent in coronary artery Z95.5 PTCA/MARCUS to mid RCA; angioplasty of prox PDA 01/23/14 Plan She does have a history of previous PTCA/stenting procedures as noted above. Again she appears to be doing well. She will continue risk factor modification and medical management. 3. Hyperlipidemia E78.5 Plan Her lipid history is been reviewed. She is continuing medical therapy and follow-up. 4. Hypertension I10 Plan Her blood pressure appears to be under recently good control. Again she will continue medical management and follow-up. Plan Detail Additional Comments Overall she will be scheduled for future outpatient cardiovascular follow-up in approximately 9 months unless needed sooner. She will notify the office or report to the hospital in the interim of any concerns. Thank you for allowing me to participate in the care of your patient. Please don't hesitate to call if any issues arise. This note was generated using a voice recognition system and there may be incorrect words, spelling or punctuation that were not noted when reviewing the office note prior to saving. Follow Up 9 Months (PFM) Coding Level of Care Code Off vis,est,level 3 Diagnoses Atherosclerotic heart disease of [place] coronary artery without angina pectoris I25.10 Presence of stent in coronary artery Z95.5 Hyperlipidemia E78.5 Hypertension I10 12/21/17 5514 <Electronically signed by Sanford Dave MD> Date Sanford Mauricio Signature: Date (if applicable) CC: Lindsey Campo MD PT D/C SUMMARY (1) Observed: 12/21/2017 Status: F Source: [facility] 9:23 AM [facility] REPOSITORY [facility] [address] [place] [address] Fax REHABILITATION SERVICES DISCHARGE SUMMARY MR#: [id number] Acct: [id number] Name: ADINA DANG Rep #: [id number] : 1970 46 From: Roberto Pfeiffer PT, ATC Referring Dr.: Marvin Sosa DPM Status: REG RCR Insurance: MEDICARE PART A B [facility] - PT D/C Summary It has been my pleasure to treat ADINA DANG under orders from Marvin Sosa, for the diagnosis of B plantarfasciitis for a total of 20 visit(s). Discharge Date: Please see the following information for a summary of their discharge status. - Subjective Subjective: Pt ready for discharge - Pain B feet Pain Intensity (Out of 10): 2 - Overall Improvement % Improvement: 80 - Objective Objective/Function: Pt is 80% improved. Pt is I with HEP and has achieved those goals - Goals Goal 1:: Decrease B foot pain x 50% to aid with sleep Goal Progress: Progressing Goal 2:: Increase B ankle DF ROM x 10 degrees to aid with decreasing pain Goal Progress: Progressing Goal 3:: I with HEP Goal Progress: Goal Met - Plan Plan: Discharge - D/C Information If there are questions or concerns regarding this patient's physical therapy, please feel free to call me at [phone]. Thank you for the referral of this patient. Sincerely, Roberto Pfeiffer, PT, <Electronically signed by Roberto Pfeiffer PT, ATC> 12/21/17 0923 CC: Lindsey Campo MD; Marvin Sosa DPM [facility] Signed ALLERGIES ALLERGIES DATE TYPE / CODE NAME / CODE REACTION SEVERITY SOURCE 09/13/2018 Drug ephedrine/F0060 Other Unknown [facility] Allergy/416 68894(RXNORM) Hospital 136555(SNOM Repository ED CT) 09/13/2018 Drug adhesive Unknown [facility] Allergy/416 tape/[id number] Hospital 201633(SNOM (RXNORM) Repository ED CT) ENCOUNTERS ENCOUNTERS ADMIT/DISCHARGE ACCOUNT ADMITTING ENCOUNTER LOCATION SOURCE NUMBER CLASS 12/11/2018 [id number] Ambulatory [place] [facility] 6 [facility] ing:RAD.FUTUR Repository E 12/06/2018 [id number] Ambulatory [place] 1 [facility] ing:MTRAD Repository 11/22/2018 [id number] Ambulatory [place] 6 [facility] ing:MTRAD Repository 11/08/2018 [id number] Ambulatory [place] 5 [facility] ing:PT Repository 11/07/2018 [id number] Ambulatory [facility] [facility] 2 [facility] Hospital ing:MTRAD Repository 10/03/2018 [id number] Ambulatory [place] 7 [facility] ing:CT Repository 09/28/2018 [id number] Ambulatory BMSBuilding:B [place] 0 [place] Repository 09/28/2018 [id number] Ambulatory [place] 6 [facility] Hospital ing:CVS Repository 09/13/2018/ [id number] Ambulatory BMSBuilding:B [place] 8 2 [place] Repository 08/11/2018/ [id number] [place], Ambulatory [place] 8 1 [place] [facility] ing:PCURoom: Repository ISP688Imh: 1 08/11/2018 [id number] [place], Ambulatory BMSBuilding:B [place] 5 [place] Repository 08/11/2018 [id number] [place], Ambulatory BMSBuilding:B [place] 5 [place] Repository 05/13/2018 [id number] Ambulatory [place] 9 [facility] ing:LAB Repository 12/21/2017/ [id number] Ambulatory BMSBuilding:B [place] 8 1 [place] Repository 12/21/2017/ [id number] Ambulatory BMSBuilding:B [place] 8 1 [place] Repository 12/21/2017/ [id number] Ambulatory [place] [facility] 4 [facility] ing:PT Repository PAYERS PAYERS ENCOUNTER GUARANTOR PAYER SUBSCRIBER SOURCE 12/11/2018 ADINA H Primary ADINA H [place] [id number] Insurance:MEDICARE BENCHOFFDOB: [facility] [place] [facility] [id number] Number: Repository [id number]: 330 [id number] [phone] () Date:2018-12-11 12/11/2018 Secondary NOT GIVENUNK [place] Insurance:SELF PAY [facility] Number: Effective Repository Date:2018-12-11 12/06/2018 ADINA H Primary ADINA H [place] [id number] Insurance:MEDICARE [facility]OFFD[facility] [id number] Number: Repository [id number]: 330 [id number] [phone] () Date:2018-12-06 12/06/2018 Secondary NOT GIVENUNK [place] Insurance:SELF PAY [facility] Number: Effective Repository Date:2018-12-06 11/22/2018 ADINA H Primary ADINA H [place] [id number] Insurance:MEDICARE BENCHOFFDOB[facility] [id number] Number: Repository [id number]: 330 [id number] [phone] () Date:2018-11-22 11/22/2018 Secondary NOT GIVENUNK [place] Insurance:SELF PAY [facility] Number: Effective Repository Date:2018-11-22 11/08/2018 ADINA H Primary ADINA [place] [id number] Insurance:MEDICARE BENCHOFFDOB: Community [place] [facility] [id number] Number: Repository [id number]: 330 [id number] [phone] () Date:2018-10-03 11/08/2018 Secondary NOT GIVENUNK [place] Insurance:SELF PAY [facility]: Effective Repository Date:2018-10-03 11/07/2018 ADINA H Primary ADINA [place] [id number] Insurance:MEDICARE BENCHOFFDOB: Community [place] [facility] [id number] Number: Repository [id number]: 330 [id number] [phone] () Date:2018-11-07 11/07/2018 Secondary NOT GIVENUNK [place] Insurance:SELF PAY [facility] Number: Effective Repository Date:2018-11-07 10/03/2018 ADINA H Primary ADINA [place] [id number] Insurance:MEDICARE BENCHOFFDOB: Community [place] [facility] [id number] Number: Repository [id number]: 330 [id number] [phone] () Date:2018-10-03 10/03/2018 Secondary NOT GIVENUNK [place] Insurance:SELF PAY [facility] Number: Effective Repository Date:2018-10-03 09/28/2018 ADINA H Primary ADINA [place] [id number] Insurance:MEDICARE BENCHOFFDOB: Community [place] [facility] [id number] Number: Repository [id number]: 330 [id number] [phone] () Date:2018-09-13 09/28/2018 Secondary NOT GIVENUNK [place] Insurance:SELF PAY [facility] Number: Effective Repository Date:2018-09-28 09/28/2018 ADINA H Primary ADINA H Alvar[place] [id number] Insurance:MEDICARE BENCHOFFDOB: Community [place] [id number] [place] Number: Repository [id number]: 330 [id number] [phone] () Date:2018-09-13 09/28/2018 Secondary NOT GIVENUNK [place] Insurance:SELF PAY [facility] Number: Effective Repository Date:2018-09-13 09/13/2018 ADINA H Primary ADINA H [place] [id number] Insurance:MEDICARE BENCHOFFDOB: Community [place] [facility] [id number] [place] Number[place] Repository [id number]: 330 [id number] [phone] () Date:2017-12-21 09/13/2018 Secondary NOT GIVENUNK [place] Insurance:SELF PAY [facility] Number: Effective Repository Date:2018-09-13 08/11/2018 ADINA H Primary ADINA H [place] [id number] Insurance:MEDICARE BENCHOFFDOB: Community [place] [id number] [place] [facility] [id number]: 330 [id number] [phone] () Date:2018-08-11 08/11/2018 Secondary NOT GIVENUNK [place] Insurance:SELF PAY [facility] Number: Effective Repository Date:2018-08-11 08/11/2018 ADINA H Primary ADINA H Alvaro [id number] Insurance:MEDICARE BENCHOFFDOB: Community [place] [facility] [id number] [place] Number[place] Repository [id number]: 330 [id number] [phone] () Date:2018-08-11 08/11/2018 Secondary NOT GIVENUNK [place] Insurance:SELF PAY [facility] Number: Effective Repository Date:2018-08-11 08/11/2018 ADINA H Primary ADINA H [place] [id number] Insurance:MEDICARE BENCHOFFDOB: Community [place] [facility] [id number] [place] Number[place] Repository [id number]: 330 [id number] [phone] () Date:2018-08-11 08/11/2018 Secondary NOT GIVENUNK [place] Insurance:SELF PAY [facility] Effective Rep[facility] Date:2018-08-11 05/13/2018 ADINA H Primary ADINA H Alvaro [id number] Insurance:MEDICARE BENCHOFFDOB: Community [place] [facility] [id number] [id number]: 330 [id number] [phone] () Date:2018-05-13 05/13/2018 Secondary ADINA H [place] Insurance:CARESOURCEP BENCHOFFDOB: Community olicy Number: [id number] [id number] Repository Date:2018-05-13[address]ATTN: [place] [address]OI: 05/13/2018 Tertiary NOT GIVENUNK [place] Insurance:SELF PAY [facility] Number: Effective Repository Date:2018-05-13 12/21/2017 ADINA Primary ADINA Alvaro [id number] Insurance:MEDICARE BENCHOFFDOB: Community [place] [facility] [id number] Number[place]ository [id number]: 330 [id number] [phone] () Date:2017-11-01 12/21/2017 Secondary ADINA [place] Insurance:CARESOURCEP BENCHOFFDOB: Community [place] Number: [id number] [facility] [id number] Repository Date:2017-11-01[address]ATTN[place] [address]AQ: 12/21/2017 Tertiary NOT GIVENUNK [place] Insurance:SELF PAY [facility] Number: Effective Repository Date:2017-12-21 12/21/2017 ADINA Primary ADINA [place] [id number] Insurance:MEDICARE BENCHOFFDOB: Community [place] [facility] [id number]ository [id number]: 330 [id number] [phone] () Date:2017-11-05 12/21/2017 Secondary ADINA [place] Insurance:CARESOURCEP BENCHOFFDOB: Community [place] Number: [id number] Hospital [id number] Repository Date:2017-11-05 [address]ATTN: [place] [address]TV: 12/21/2017 Tertiary NOT GIVENUNK [place] Insurance:SELF PAY [facility] Number: Effective Repository Date:2017-11-05 12/21/2017 Adina Primary ADINA [place] [id number] Insurance:MEDICARE BENCHOFFDOB[facility] [id number] Repository [id number]: [phone] [id number] [phone] () Date:1998-10-28 12/21/2017 Secondary ADINA [place] Insurance:CARESOURCEP BENCHOFFDOB: [facility] Number: [id number] Hospital [id number] Repository Date:2014-09-28[address]ATTN: [place] [address]IU: 12/21/2017 Tertiary NOT GIVENUNK [place] Insurance:SELF PAY [facility] Number: Effective Repository Date:2017-09-26
== END ==
PROVIDERS: Family Provider Family Medicine; PCP Family Medicine; Referring Provider Family Medicine; Visit Provider Family Medicine
DX: S60.211A Contusion of right wrist, initial encounter (principal)
CPT/HCPCS: 73110

== ENCOUNTER → 2018-11-22 14:57 | Outpatient (CLI) | payer MEDICARE, SELFPAY ==
[2018-09-13 15:19] VITALS: BMI 28.6
--- NOTE | 2018-11-22 15:10 | RAD_ITS ---
STUDY: X-RAY - RIGHT WRIST REASON FOR EXAM: Female, 47 years old. TECHNIQUE: 4 view(s) of the wrist were obtained. COMPARISON: November 07, 2018 FINDINGS: There is tiny undisplaced fracture involving the distal lateral aspect of the scaphoid bone. No other osseous or articular abnormality seen. No soft tissue swelling identified. IMPRESSION: Undisplaced fracture distal lateral aspect of the navicular bone RAD/Wrist min 3 Views IMPRESSION: Undisplaced fracture of the navicular bone more obvious than in the previous examination. Electronically Signed: Mark Wellington, at 11:59 EST Tel , Service support ,
== END ==
PROVIDERS: Family Provider Family Medicine; PCP Family Medicine; Referring Provider Family Medicine; Visit Provider Family Medicine
DX: S60.211A Contusion of right wrist, initial encounter (principal)
CPT/HCPCS: 73110

== ENCOUNTER → 2018-12-06 16:49 | Outpatient (CLI) | payer MEDICARE, SELFPAY ==
--- NOTE | 2018-12-06 16:53 | RAD_ITS ---
HISTORY: fx of scaphoid right wrist COMPARISON: 11/22/2018 and 11/07/2018 FINDINGS: XR right hand 4 views With comparison previous, no significant change. Small ununited corner fracture or chip fracture at the radial and palmar aspect of the distal navicular. The remaining visualized bones appear intact. Joint spaces appear preserved. No significant arthritis. No dislocation or instability. RAD/Hand Min 3 Views IMPRESSION: 1. Stable findings. Small ununited corner fracture or chip fracture of the distal navicular, right wrist. 2. At this location, no worry for avascular necrosis. 3. No significant arthritis and no acute disease. [place] [address]3 Reported and signed by: Morgan Torres MD Electronically Signed: Morgan Torres, at 5:22 EST Tel , Service support ,
== END ==
PROVIDERS: Family Provider Family Medicine; PCP Family Medicine; Referring Provider Family Medicine; Visit Provider Family Medicine
DX: S62.001A Unspecified fracture of navicular [scaphoid] bone of right wrist, initial encounter for closed fracture (principal)
CPT/HCPCS: 73130

== ENCOUNTER 2018-12-23 08:13 | Emergency (ER) | payer MEDICARE, SELFPAY ==
[2018-12-23 08:15] VITALS: BP 149/67; PULSE 95; RESP 18; TEMP 37.2; O2SAT 92; BMI 30.5
--- NOTE | 2018-12-23 08:34 | ED.DCSUM_ITS ---
- ER Visit Summary Date of Service: 12/23/18 Chief Complaint: Hypoglycemia History of Present Illness: The patient is a 47 F with history of type 1 diabetes. Patient was found by her with decreased level of consciousness this morning. She was given 3 glucose gel tabs. She had a questionable seizure lasting approximately 1 minute. EMS noted blood sugar to be approximately 60 on their arrival. She was given an amp of D50 and blood sugar elevated to the 170s. Patient is more alert on arrival. Blood sugar on arrival to the emergency room was down to 88 Physical Examination: Vital signs unremarkable. Patient is lying in bed no acute distress. Head neck examination normal. Heart is regular rate and rhythm. Lung sounds are clear. Abdomen soft nontender. External examination reveals right wrist to be in a Velcro wrist splint. Neuro exam reveals patient to be alert and oriented. She is answering questions appropriately. No focal deficits. Test Results: CBC returns with normal white count hemoglobin 11.3. Chemistry studies significant for glucose of 67, BUN 19, creatinine 1.27. Emergency Department Course and Treatment: Blood sugar on arrival was in the 80s. By the time IV line could be established blood sugar was reading 69. She was given a half amp of D50. Next several blood sugars were 134, 89, 75. Patient was given a p.o. diet with crackers and pop. Next 3 blood sugars have been 88, 112, 147. Blood sugars have been maintaining on their own for over an hour. Her will be with her. Patient feels improved and will be discharged home at this time. Treatment Plan: [] Disposition: Discharge Impression: Hypoglycemia, improved This note was generated with [employer] dictation software. It may contain incorrect words, spelling, and punctuation that were not noted in review of the chart prior to signing ED Disposition - Plan for ED Patient: Chief Complaint: Hypoglycemia Referrals: Joni Campo MD [Primary Care Provider] -
[2018-12-23] MEDS: Ondansetron ODT 4 MG Tablet PO (08:36)
[2018-12-23] MEDS: 0.9% Normal Saline 1,000 ML 150 ML IV (08:47)
[2018-12-23] MEDS: Dextrose 50%-Water 25 GM/50 ML DISP.SYRIN IV (08:47)
[2018-12-23 08:53] LABS: Absolute Lymphocyte Count 1.61 X10^3/ul (0.83-4.51); Absolute Neutrophil Count 6.4 X10^3/uL (2.0-7.7); Basophil# 0.07 X10^3/uL; Basophil% 0.8 % (0-1); Eosinophil# 0.16 X10^3/uL; Eosinophils% 1.8 % (0-5); Hematocrit 34.8 % (37-47); Hemoglobin 11.3 g/dl (12.0-15.0); Lymphocyte # 1.61 X10^3/ul (4.0); Lymphocyte % 17.8 % (19-41); Mean Corp Hgb Conc 32.5 g/gl (32-36); Mean Corpuscular Hgb 27.5 pg (27.0-32.0); Mean Corpuscular Volume 84.7 fL (81-99); Mean Platelet Vol. 11.2 fl (6.2-12.0); Monocyte# 0.83 X10^3/uL; Monocyte% 9.2 % (0-10); Neutrophil # 6.39 X10^3/uL (2.7-7.7); Neutrophil % 70.3 % (47-70); Platelet Count 291 K/mm3 (150-450); RBC Distribution Width CV 13.3 % (11.6-14.6); RBC Distribution Width SD 40.5 fl (35.1-43.9); Red Blood Count 4.11 M/mm3 (4.2-5.4); White Blood Count 9.1 K/mm3 (4.4-11.0)
[2018-12-23 08:54] LABS: POSITIVE COUNT NO; POSITIVE DIFFERENTIAL NO; POSITIVE MORPHOLOGY NO
[2018-12-23 09:05] LABS: Anion Gap 8 (5-15); BUN 19 mg/dL (7-18); Calcium,Total 8.5 mg/dL (8.5-10.1); Chloride 111 mmol/L (98-107); Creatinine, Serum 1.27 mg/dL (0.55-1.02); EST Glomerular Filtration Rate 48 mL/min (>60); Est Glom Filt Rate - Afr Amer 58 mL/min (>60); Estimated Creatinine Clearance 56.61 ml/min; Glucose 67 mg/dL (74-106); Potassium 3.8 mmol/L (3.5-5.1); Sodium Level 142 mmol/L (136-145)
[2018-12-23 09:32] VITALS: BP 149/89; PULSE 92; RESP 16; O2SAT 98
[2018-12-23 09:36] LABS: Bedside Glucose 89 mg/dL (70-110)
[2018-12-23 09:36] LABS: Bedside Glucose 134 mg/dL (70-110)
[2018-12-23 09:36] LABS: Bedside Glucose 69 mg/dL (70-110)
[2018-12-23 09:51] LABS: Bedside Glucose 75 mg/dL (70-110)
[2018-12-23 10:06] VITALS: BP 158/76; PULSE 90; RESP 16; O2SAT 96
[2018-12-23 10:46] LABS: Bedside Glucose 88 mg/dL (70-110)
[2018-12-23 11:14] VITALS: BP 145/61; PULSE 75; RESP 16; O2SAT 98
--- NOTE | 2018-12-23 11:20 | ED.DEP ---
ED Disposition - Plan for ED Patient: Disposition: Home or Assisted Living Chief Complaint: Hypoglycemia Instructions: ED Diabetes Hypoglycemia Insulin React Referrals: Joni Campo MD [Primary Care Provider] - As Needed
[2018-12-23 11:21] LABS: Bedside Glucose 147 mg/dL (70-110)
[2018-12-23 11:28] VITALS: BP 154/74; PULSE 86; RESP 16; O2SAT 96
[2018-12-26 07:30] LABS: Bedside Glucose 89 mg/dL (70-110)
[2018-12-26 07:30] LABS: Bedside Glucose 112 mg/dL (70-110)
[2018-12-26 07:45] LABS: Bedside Glucose 88 mg/dL (70-110)
== END 2018-12-23 11:29 | disposition home or self-care (01) ==
PROVIDERS: Emergency Provider Emergency Medicine; Family Provider Family Medicine; PCP Family Medicine
DX: E10.649 Type 1 diabetes mellitus with hypoglycemia without coma (principal); I25.10 Atherosclerotic heart disease of native coronary artery without angina pectoris; I25.2 Old myocardial infarction; E78.00 Pure hypercholesterolemia, unspecified; Z95.5 Presence of coronary angioplasty implant and graft; N18.9 Chronic kidney disease, unspecified; I12.9 Hypertensive chronic kidney disease with stage 1 through stage 4 chronic kidney disease, or unspecified chronic kidney disease
CPT/HCPCS: 80048; 82962; 85025; 96361; 96374; 99285; J7030; A4216

== ENCOUNTER → 2019-01-08 15:52 | Outpatient (CLI) | payer MEDICARE, SELFPAY ==
[2018-12-23 08:15] VITALS: BMI 30.5
--- NOTE | 2019-01-08 15:54 | RAD_ITS ---
STUDY: X-RAY - RIGHT HAND REASON FOR EXAM: Female, 48 years old. Follow-up of fracture TECHNIQUE: 3 view(s) of the hand. COMPARISON: Previous study of 12/06/2018 FINDINGS: Normal radiocarpal articulation. Normal distal radioulnar joint. 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 Normal carpal articulations Normal carpometacarpal articulation of the thumb. Normal second through fifth carpometacarpal joints. Normal metacarpi. Normal metacarpophalangeal joint of the thumb. Normal interphalangeal joint of the thumb. Normal proximal and distal phalanges of the thumb. Normal metacarpophalangeal joints of the second through fifth fingers. Normal proximal and distal interphalangeal joints of the second through fifth fingers. Normal phalanges of the second through fifth fingers. The soft tissue structures are unremarkable. 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 The remaining osseous structures and articular surfaces of the right hand appear within normal limits. Electronically Signed: Compa Fernandes MD at 16:27 EST , Service support ,
== END ==
PROVIDERS: Family Provider Family Medicine; PCP Family Medicine; Referring Provider Family Medicine; Visit Provider Family Medicine
DX: S62.001A Unspecified fracture of navicular [scaphoid] bone of right wrist, initial encounter for closed fracture (principal)
CPT/HCPCS: 73130

== ENCOUNTER 2019-01-27 21:32 | Emergency (ER) | payer MEDICARE, SELFPAY ==
[2019-01-27 21:33] VITALS: BP 162/71; PULSE 86; RESP 15; TEMP 36.7; BMI 28.0
--- NOTE | 2019-01-27 21:47 | ED.DCSUM_ITS ---
- ER Visit Summary Date of Service: 01/27/19 Chief Complaint: Finger injury History of Present Illness: The patient is a 48 F who is blind presents to the emergency department with finger injury. Patient was using fabric ed. She incised the tip of her left index finger. She is ambidextrous. Her tetanus has been within the past 5 years. She is on Plavix. She was unable to get the bleeding to stop is the reason that she presented. She denies other injury. She is otherwise been in her normal state of health. Physical Examination: Exam is relatively unremarkable. Patient does have a 1 cm ovoid flap on the distal tip. Her two-point discrimination is preserved. Flexion and extension are preserved. Cap refill is less than 2 seconds. No evidence of other injury. Test Results: [] Emergency Department Course and Treatment: The patient has an avulsion type laceration of the distal tip of the left index finger. The skin is devitalized. Unfortunately, I do feel that removing this would just cause a bigger defect that would be unable to be closed primarily. I discussed options with the patient. Turnicot was placed and the wound was cleaned. It was covered with Dermabond which she tolerated. There is no further bleeding. She was counseled on wound care. She will be discharged home.] Treatment Plan: [] Disposition: Discharge Impression: 1. Left index finger skin avulsion with Dermabond closure This note was generated with [employer] software. It may contain incorrect words, spelling, and punctuation that were not noted in review of the chart prior to signing ED Disposition - Plan for ED Patient: Instructions: ED Laceration Ext Skin Glue Referrals: Joni Campo MD [Primary Care Provider] -
[2019-01-27 22:25] VITALS: BP 148/79; PULSE 86; RESP 14; O2SAT 99
== END 2019-01-27 22:28 | disposition home or self-care (01) ==
LOC: ED 21:56
PROVIDERS: Emergency Provider Emergency Medicine; Family Provider Family Medicine; PCP Family Medicine
DX: S61.301A Unspecified open wound of left index finger with damage to nail, initial encounter (principal); W27.2XXA Contact with scissors, initial encounter; Y93.9 Activity, unspecified; Y92.89 Other specified places as the place of occurrence of the external cause; Y99.9 Unspecified external cause status; I25.10 Atherosclerotic heart disease of native coronary artery without angina pectoris; I10 Essential (primary) hypertension; E78.00 Pure hypercholesterolemia, unspecified
CPT/HCPCS: 12001; 99283

== ENCOUNTER → 2019-02-07 17:05 | Outpatient (CLI) | payer MEDICARE, SELFPAY ==
[2019-01-27 21:33] VITALS: BMI 28.0
--- NOTE | 2019-02-07 17:09 | RAD_ITS ---
STUDY: X-RAY - RIGHT WRIST REASON FOR EXAM: Female, 48 years old. Continued pain. History of scaphoid fracture. TECHNIQUE: 3 view(s) of the wrist were obtained. COMPARISON: Comparison is made with prior examination dated November 22, 2018. FINDINGS: Normal visualized distal radius and ulna. Normal radiocarpal articulation. Normal distal radioulnar articulation. Healing corner fracture of the distal scaphoid bone. Normal carpal articulations. Normal carpometacarpal articulation of the thumb. Normal second through fifth carpometacarpal articulations. Normal visualized metacarpal bones. The soft tissue structures are unremarkable. RAD/Wrist min 3 Views IMPRESSION: Healing scaphoid fracture. Electronically Signed: Akash Sarabia, at 10:00 EDT , Service support ,
== END ==
PROVIDERS: Family Provider Family Medicine; PCP Family Medicine; Referring Provider Family Medicine; Visit Provider Family Medicine
DX: S62.001A Unspecified fracture of navicular [scaphoid] bone of right wrist, initial encounter for closed fracture (principal)
CPT/HCPCS: 73110

== ENCOUNTER → 2019-03-23 16:11 | Outpatient (CLI) | payer MEDICARE, SELFPAY ==
[2019-03-23 18:13] LABS: AST(SGOT) 17 U/L (15-37); Alanine Aminotransfer ALT/SGPT 18 U/L (13-56); Albumin, Serum 3.4 g/dL (3.2-5.0); Alkaline Phosphatase 72 U/L (45-117); Anion Gap 4 (5-15); BUN 24 mg/dL (7-18); BUN/Creat Ratio 14.5 RATIO (10-20); Calcium,Total 8.1 mg/dL (8.5-10.1); Chloride 109 mmol/L (98-107); Creatinine, Serum 1.66 mg/dL (0.55-1.02); EST Glomerular Filtration Rate 35 mL/min (>60); Est Glom Filt Rate - Afr Amer 42 mL/min (>60); Ferritin 8 ng/mL (8-252); Free T3 1.8 pg/mL (2.18-3.98); Globulin 3.3 g/dL (2.2-4.2); Glucose 256 mg/dL (74-106); Potassium 4.9 mmol/L (3.5-5.1); Protein, Total 6.7 g/dL (6.4-8.2); Sodium Level 140 mmol/L (136-145); T4 Free Direct 1.45 ng/dL (0.76-1.46); Thyroid Stim Hormone (TSH) 0.96 uIU/mL (0.358-3.74)
== END ==
PROVIDERS: Family Provider Family Medicine; PCP Family Medicine; Referring Provider Family Medicine; Visit Provider Family Medicine
DX: R68.89 Other general symptoms and signs (principal); E11.65 Type 2 diabetes mellitus with hyperglycemia
CPT/HCPCS: 36415; 80053; 82728; 84439; 84443; 84481

== ENCOUNTER → 2019-05-02 | Outpatient (CLI) | payer MEDICARE, SELFPAY ==
[2019-04-09 15:58] VITALS: BMI 29.7
[2019-05-02 18:06] LABS: Ferritin 12 ng/mL (8-252); Free T3 2.1 pg/mL (2.18-3.98)
== END | disposition home or self-care (01) ==
LOC: MTLAB 16:47
PROVIDERS: Family Provider Family Medicine; PCP Family Medicine; Referring Provider Family Medicine; Visit Provider Family Medicine
DX: R79.89 Other specified abnormal findings of blood chemistry (principal); R79.0 Abnormal level of blood mineral
CPT/HCPCS: 36415; 82728; 84439; 84443; 84481

== ENCOUNTER → 2019-05-21 17:35 | Outpatient (CLI) | payer MEDICARE, SELFPAY ==
[2019-04-09 15:58] VITALS: BMI 29.7
[2019-06-01 15:51] LABS: HPV Reflexed? NOT INDICATED
== END ==
PROVIDERS: Family Provider Family Medicine; PCP Family Medicine; Referring Provider Obstetrics & Gynecology; Visit Provider Obstetrics & Gynecology
DX: Z12.4 Encounter for screening for malignant neoplasm of cervix (principal)
CPT/HCPCS: 88175; G0145

== ENCOUNTER 2019-05-30 06:31 | Inpatient (IN) | payer MEDICARE, SELFPAY ==
[2019-04-09 15:58] VITALS: BMI 29.7
[2019-05-30] VITALS (39 sets, daily range): BP systolic 88–152; BP diastolic 42–81; PULSE 76–97; RESP 12–33; TEMP 32.8–36.7; O2SAT 71–99; BMI 34.0; BMI 29.3; BMI 29.4
--- NOTE | 2019-05-30 06:44 | CT_ITS ---
STUDY: CT BRAIN WITHOUT CONTRAST REASON FOR EXAM: Female, 48 years old. Weakness, fall. Blindness. RADIATION DOSAGE (If Supplied By Facility): CTDIvol = ( 44.99 ) mGy, DLP = ( 745.49 ) mGycm TECHNIQUE: Transaxial CT imaging of the brain was performed without administration of intravenous contrast material. Individualized dose optimization techniques were used for this CT. COMPARISON: October 03, 2018. FINDINGS: Normal soft tissue structures. Normal calvarium. Normal size ventricles and extra-axial spaces for the patient's age. Normal white matter tracts of the cerebral hemispheres. Normal basal ganglia and thalami. Normal brainstem. Normal cerebellum. There is no intracranial hemorrhage. There are no findings of an acute ischemic infarction. Minimal paranasal sinus mucosal thickening. Globes are diffusely high attenuation noted previously. CT/Brain/Head without Contrast IMPRESSION: No acute intracranial abnormality. Minimal paranasal sinus mucosal thickening. Globes are diffusely high attenuation noted previously. Electronically Signed: Jay Dow MD at 7:43 EDT , Service support ,
--- NOTE | 2019-05-30 06:44 | EKG12_ITS ---
Test Reason : HYPOGLYCEMIA Blood Pressure : / mmHG Vent. Rate : 094 BPM Atrial Rate : 094 BPM P-R Int : 136 ms QRS Dur : 076 ms QT Int : 368 ms P-R-T Axes : 048 -06 017 degrees QTc Int : 460 ms Normal sinus rhythm Low voltage QRS Poor R-Wave Progression Borderline ECG Confirmed by SALVADOR VINCENT, ARABELLA ([id number]), editor magazine MIGUEL HOLLIS ([id number]) on 06/04/2019 1:24:28 PM Referred By: Michelle Thompson Confirmed By:ARABELLA FRANCO MD
--- NOTE | 2019-05-30 06:44 | RAD_ITS ---
STUDY: X-RAY CHEST REASON FOR EXAM: Female, 48 years old. Found down TECHNIQUE: AP upright COMPARISON: 08/11/2018 FINDINGS: The lungs demonstrate diffuse interstitial prominence. There is no demonstrated pleural abnormality. Normal size heart. Normal mediastinum and michael. Normal visualized pulmonary arteries. Normal visualized aortic arch and descending thoracic aorta. Normal visualized thoracic spine. Normal visualized ribs, clavicles, and shoulders. There is no demonstrated abnormality of the visualized soft tissue structures of the upper abdomen. RAD/Chest 1 View (Portable) IMPRESSION: Mild diffuse interstitial lung prominence likely due to underlying edema. Electronically Signed: Harjinder Wright, at 7:03 EDT Tel , Service support ,
--- NOTE | 2019-05-30 06:46 | ED.VIS.GEN ---
History of Present Illness Chief Complaint: Hypoglycemia Informant: Patient Narrative: She presents to the emergency department after hypoglycemic episode. The stated that the patient was in bed with him last night. She has a history of hypoglycemic events in the middle of the night. She has been in the emergency department for these before with altered mental status. The patient was found by the this morning down by her computer on the floor. She was asking for help. He noticed that she was altered with dried blood in her nose. EMS was called to the house and blood sugar was in the 30s. They gave a dose of glucagon as he could not establish a line. They reported they got her sugar up into the 50s but she remained altered. The patient stated she was not sure why she was down there. She stated that she feels funny because of her blood sugar being low. She denies any head injury or neck pain. She denies any injury from falling. She does not remember why this happened. She denies any chest pain or shortness of breath. - Past Medical History (1) Chronic kidney disease Status: Acute (2) Hyperlipidemia Status: Acute Comment: Controlled. No change. Tolerating statin well (3) Hypothyroidism Status: Acute (4) Pericarditis Status: Acute (5) ST elevation myocardial infarction (STEMI) of anterior wall Status: Acute (6) Atherosclerotic heart disease of [place] coronary artery without angina pectoris Status: Chronic Comment: angioplasty to LAD; no stent @ [facility] 11/08/13; PTCA/MARCUS to mid RCA; angioplasty of prox PDA @ [facility] 01/23/14 (7) Diabetes type 1, controlled Status: Chronic (8) HTN (hypertension) Status: Chronic Comment: BP 126/64 No change in regimen (9) Presence of stent in coronary artery Status: Chronic Comment: PTCA/MARCUS to mid RCA; angioplasty of prox PDA 01/23/[address] Glenn Merino at [facility] Past Medical History - Allergies and Home Meds Allergies/Adverse Reactions: Allergies adhesive tape Allergy (Severe, Verified 01/27/19 21:37) Unknown Primary Care Physician: Joni Campo MD [Primary Care Provider] - Prior records reviewed: Yes Past Medical History: - Surgical History: - - ROSGeneral: Denies fever, chills, sweatsEyes: Denies visual changes, blurred vision, double visionENT: Denies ear pain, rhinorrhea, sore throatCardiovascular: Denies chest pain, palpitations, heart racingRespiratory: Denies dyspnea, cough, sputum, dyspnea on exertion, orthopnea,PNDGI: Denies abdominal pain, nausea, vomiting, diarrhea, constipation, melenaGU: Denies dysuria, hematuria, frequencyMusculoskeletal: Denies myalgias, arthralgias, neck pain, back painSkin: Denies rash, abscess, abrasionsNeuro: Denies headache, weakness, paresthesiaPsych: Denies depression, anxietyEndo: Denies polyuria, polydipsia, polyphagiaHeme: Denies easy bruising, easy bleeding, lymphadenopathyAllergy: Denies hives, swelling Smoking Status: Never smoker Alcohol: None Drugs: None Review of Systems General: Denies: Chills, Fever, Sweats Eyes: Denies: Visual changes - bilaterally, Diplopia ENT: Denies: Rhinorrhea, Sore throat Cardiovascular: Denies: Chest pain, Palpitations Respiratory: Denies: Dyspnea, Cough, Dyspnea on exertion Gastrointestinal: Denies: Abdominal pain, Nausea, Vomiting, Diarrhea, Melena, Hematochezia Genitourinary: Denies: Dysuria, Hematuria, Frequency Musculoskeletal: Denies: Back pain, Extremity Pain Skin: Denies: Rash, Wounds Neurological: Reports: Weakness. Denies: Headache, Numbness Physical Exam Vital Signs/Narrative: Vital Signs Temp Pulse Resp Pulse Ox 05/30/19 06:42 96 24 H 93 05/30/19 06:33 91.0 F L 97 22 H 71 General: Well nourished, Well developed, - - Patient is altered secondary to hypoglycemia. She is able to answer my questions.. Negative for: No Acute Distress Head: Normocephalic, Atraumatic Eyes: - - She is legally blind. Negative for: Perrl, EOMI ENT: Moist mucous membranes, No rhinorrhea Neck: Supple, Nontender Cardiovascular: Regular rate, Regular rhythm, No murmurs Respiratory: No distress, CTA bilaterally, Chest nontender Abdomen: Soft, Nontender, Nondistended, Normal bowel sounds Back: Nontender, Normal Inspection Extremities: Nontender, No edema Skin: Normal color, No rash Neurological: Alert, Cranial nerves II-XII grossly intact, Confused, Inattentive. Negative for: Oriented x3, Normal Strength, Normal Sensation Psychological: Negative for: Normal affect, Normal Mood Diagnostic/Tx/Re-eval - Medical Decision Making IV established and patient given an amp of D50. Lab work EKG chest x-ray and CT had obtained. EKG shows sinus rhythm at a rate of 94 with no acute ischemic findings. Lab work is pending. Chest x-ray shows interstitial prominence with a right lower lobe aspiration pneumonitis pneumonia picture. Patient started on Unasyn for this. Patient was hypoxic on nonrebreather and was switched over to BiPAP after she became more coherent. After being given D50 her blood sugars came up and she is able to talk and is more responsive. Therefore I do not feel she needs intubated at this time. CT of the head shows no acute findings. Discussed with the hospitalist and will be admitted to the ICU. With BiPAP the patient's pulse ox is in the mid 90s. Blood sugars will be monitored closely. We will start a bear hugger to warm her up as she was hypothermic. I have a low suspicion for rhabdo. Nonetheless we will send a CK level - Critical Care Time Critical care time (excluding procedures): 30-74 minutes ED Disposition - Plan for ED Patient: Diagnosis: Acute respiratory failure, Aspiration pneumonia, Hypoglycemic event in diabetes Referrals: Joni Campo MD [Primary Care Provider] -
[2019-05-30] MEDS: Dextrose 50%-Water 25 GM/50 ML DISP.SYRIN IV ×2 (06:47→11:28)
[2019-05-30 07:55] LABS: Bedside Glucose 174 mg/dL (70-110)
[2019-05-30 07:55] LABS: Bedside Glucose 56 mg/dL (70-110)
[2019-05-30 08:03] LABS: Absolute Lymphocyte Count 0.42 X10^3/ul (0.83-4.51); Absolute Neutrophil Count 4.9 X10^3/uL (2.0-7.7); Basophil# 0.02 X10^3/uL; Basophil% 0.4 % (0-1); Hematocrit 43.8 % (37-47); Hemoglobin 14.8 g/dl (12.0-15.0); Lymphocyte # 0.42 X10^3/ul (4.0); Lymphocyte % 7.4 % (19-41); Mean Corp Hgb Conc 33.8 g/gl (32-36); Mean Corpuscular Hgb 28.7 pg (27.0-32.0); Mean Platelet Vol. 10.7 fl (6.2-12.0); Monocyte# 0.36 X10^3/uL; Monocyte% 6.3 % (0-10); Neutrophil # 4.88 X10^3/uL (2.7-7.7); Neutrophil % 85.5 % (47-70); Platelet Count 215 K/mm3 (150-450); RBC Distribution Width CV 14.4 % (11.6-14.6); RBC Distribution Width SD 44.9 fl (35.1-43.9); Red Blood Count 5.15 M/mm3 (4.2-5.4); White Blood Count 5.7 K/mm3 (4.4-11.0)
[2019-05-30 08:04] LABS: Differential Indicated SCAN CRITERIA MET; POSITIVE COUNT NO; POSITIVE DIFFERENTIAL YES; POSITIVE MORPHOLOGY NO
[2019-05-30 08:22] LABS: Anion Gap 9 (5-15); BUN 29 mg/dL (7-18); BUN/Creat Ratio 18.2 RATIO (10-20); CPK Total, Creatine Kinase 425 U/L (26-192); Calcium,Total 8.4 mg/dL (8.5-10.1); Chloride 112 mmol/L (98-107); Creatinine, Serum 1.59 mg/dL (0.55-1.02); EST Glomerular Filtration Rate 37 mL/min (>60); Est Glom Filt Rate - Afr Amer 44 mL/min (>60); Estimated Creatinine Clearance 40.07 ml/min; Glucose 176 mg/dL (74-106); Potassium 4.3 mmol/L (3.5-5.1); Sodium Level 140 mmol/L (136-145)
--- NOTE | 2019-05-30 08:30 | NURSING ---
In ICU 4 per cart from ED, ED RN in attendance. both IV sites are unusable, Both RW #24 and LH #22 are leaking w/blanching of area proximal to site. multiple attempts by 2 RNS to start IVs unsuccessful. Both Dr. Rene and Dr. Cortez are aware. orders for PICC line obtained.
--- NOTE | 2019-05-30 08:40 | ECHOD_ITS ---
Reason For Study: CAD/ASHD Procedure This was a 2D Doppler, Color Flow transthoracic echocardiogram. The study was technically difficult. The study was technically limited. Technically difficult due to breast augmentation. Exam performed portable in ICU/CCU. Left Ventricle Moderate concentric left ventricular hypertrophy. The estimated ejection fraction is 75 %. Stage 1 diastolic dysfunction. No regional wall motion abnormalities noted. Right Ventricle Normal size and thickness. Normal systolic function. Atria Normal left atrium. Normal right atrium. Normal atrial septum. Mitral Valve Mild diffuse mitral valve thickening. Mild mitral annular calcification extending into the posterior leaflet. Tricuspid Valve Normal tricuspid valve. Trivial tricuspid valve insufficiency. Right ventricular systolic pressure estimated to be 25 mmHg. Aortic Valve Trisinus/trileaflet aortic valve. Pulmonic Valve The pulmonic valve is not well visualized. Great Vessels Normal aortic root. Normal arch. Normal inferior vena cava. Inferior vena cava collapse with sniff. Pericardium/Pleural No pericardial effusion. MMode/2D Measurements & Calculations LVIDd: 3.8 cm IVSd: 1.6 cm Ao root diam: 3.0 cm LVIDs: 2.7 cm LVPWd: 1.2 cm FS: 30.0 % LAV(MOD-sp4): 19.3 ml LA A4 area: 9.4 cm2 LA dimension(2D): 3.4 cm RA A4 area: 7.6 cm2 Doppler Measurements & Calculations MV E max chase: 63.3 cm/sec Lat Peak E' Chase: 7.6 cm/sec Med Peak E' Chase: 7.0 cm/sec MV A max chase: 73.9 cm/sec E/E' lat: 8.4 E/E' med: 9.1 MV E/A: 0.86 Ao V2 max: 159.2 cm/sec LV V1 max: 127.7 cm/sec PA V2 max: 107.9 cm/sec Ao max P.1 mmHg LV V1 max P.5 mmHg Ao V2 mean: 117.1 cm/sec Ao mean P.9 mmHg Ao V2 VTI: 29.7 cm TR max chase: 221.9 cm/sec TR max P.7 mmHg Interpretation Summary Moderate concentric left ventricular hypertrophy. The estimated ejection fraction is 75 %. Stage 1 diastolic dysfunction. Trivial tricuspid valve insufficiency. Right ventricular systolic pressure estimated to be 25 mmHg. Compared to echo report dated , LV function has remained the same, but RVSP has decreased from 40 to 25 mm Hg. Ordering Physician: Porsha Rene Referring Physician: Joni Campo Performed By: Ashlee Loco RDCS, RVT
--- NOTE | 2019-05-30 08:59 | PCM.HP.STD ---
Problem List (1) Metabolic acidosis Status: Acute (2) Chronic renal failure, stage 3 (moderate) Status: Chronic (3) Acute respiratory failure Status: Acute Qualifiers: Respiratory failure complication: hypoxia Qualified Code(s): J96.01 - Acute respiratory failure with hypoxia (4) Aspiration pneumonia Status: Acute Qualifiers: Aspiration pneumonia type: due to vomit (5) Hypoglycemic event in diabetes Status: Acute (6) Presence of stent in coronary artery Status: Chronic Comment: PTCA/MARCUS to mid RCA; angioplasty of prox PDA 01/23/[address] 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 transplanted heart: andreafski heart Qualified Code(s): I25.10 - Atherosclerotic heart disease of andreafski coronary artery without angina pectoris Comment: angioplasty to LAD; no stent @ [facility] 11/08/13; PTCA/MARCUS to mid RCA; angioplasty of prox PDA @ [facility] 01/23/14 (8) Pericarditis Status: Resolved (9) ST elevation myocardial infarction (STEMI) of anterior wall Status: Chronic (10) Hypothyroidism Status: Chronic (11) Hyperlipidemia Status: Chronic Qualifiers: Hyperlipidemia type: mixed hyperlipidemia Qualified Code(s): E78.2 - Mixed hyperlipidemia Comment: Controlled. No change. Tolerating statin well (12) HTN (hypertension) Status: Chronic Qualifiers: Hypertension type: essential hypertension Qualified Code(s): I10 - Essential (primary) hypertension Comment: BP 126/64 No change in regimen (13) Diabetes type 1, controlled Status: Chronic Qualifiers: Diabetes mellitus complication status: with kidney complications Chronic kidney disease stage: stage 3 (moderate) (14) Syncope and collapse Status: Acute Comment: due to hypoglycemia History of Present Illness Date of Admission: 05/30/19 Chief Complaint: pt found by unconscious face down with a bloody nose The patient is a 48 year old F with a past medical history of type 1 diabetes mellitus since age 8, hyperlipidemia, coronary artery disease with history of PTCA to the LAD at [facility] on 11/08/2013 with no stent and PTCA/MARCUS to the mid RCA and angioplasty of the proximal PDA at [facility] on 01/23/2014, chronic renal failure stage III, hypothyroidism, hypertension, blindness related to diabetic retinopathy and obesity who presented to the ED at [facility] on 05/30/2019 after a syncopal event at home. Her awoke and when she was not in bed he found her lying face down by her computer and asking for help. She was not conscious. She had a bloody nose. 911 was called and when they arrive the BS was in the 30's. they could not obtain IV access and she was given Glucagon and transported to the ED. The BS in the ED at arrival was 56 and she was given D50W. Vital signs at arrival to the emergency department were temperature 91 ?F, pulse rate 97, respiratory rate 22 and she was 71% saturated on room air. She was placed on a nonrebreather and the pulse ox was initially 93% but then dropped to 85% and she was placed on BiPAP. White blood cell count was normal at 5.7 with a left shift. Hemoglobin was 14.8 and platelets were within normal limits. Serum bicarb is low at 19 and the chloride is elevated at 112. The BUN is 29 and the creatinine is 1.59 which is within her baseline. A total CK was mildly increased at 425. Troponin was less than 0.015. Chest x-ray shows pulmonary vascular congestion with increased interstitial markings in the right base which are suspected to be due to aspiration. She was admitted to the ICU on BIPAP and has been started on Zosyn. BNP is pending and ECHO has been ordered. Past Medical History Past Medical History (Chronic Problems): Chronic Problems (Last Reviewed 09/13/18 @ 15:24 by Marisabel Driver) Chronic renal failure, stage 3 (moderate) (Chronic) Presence of stent in coronary artery (Chronic ~01/23/14) PTCA/MARCUS to mid RCA; angioplasty of prox PDA 01/23/[address] Glenn Merino at [facility] Atherosclerotic heart disease of andreafski coronary artery without angina pectoris (Chronic) angioplasty to LAD; no stent @ [facility] 11/08/13; PTCA/MARCUS to mid RCA; angioplasty of prox PDA @ [facility] 01/23/14 ST elevation myocardial infarction (STEMI) of anterior wall (Chronic) Hypothyroidism (Chronic) Hyperlipidemia (Chronic) Controlled. No change. Tolerating statin well HTN (hypertension) (Chronic) BP 126/64 No change in regimen Diabetes type 1, controlled (Chronic) Medical History: Medical History (Last Reviewed 05/30/19 @ 10:08 by Porsha Rene DO) Atherosclerotic heart disease of andreafski coronary artery without angina pectoris (Chronic) I25.10 angioplasty to LAD; no stent @ [facility] 11/08/13; PTCA/MARCUS to mid RCA; angioplasty of prox PDA @ [facility] 01/23/14 ST elevation myocardial infarction (STEMI) of anterior wall (Chronic) I21.09 Hypothyroidism (Chronic) E03.9 Hyperlipidemia (Chronic) E78.5 Controlled. No change. Tolerating statin well HTN (hypertension) (Chronic) I10 BP 126/64 No change in regimen Diabetes type 1, controlled (Chronic) E10.9 Anxiety F41.9 Asthma J45.909 Blindness H54.7 Diabetic retinopathy E11.319 Family history of hypertension Z82.49 Hearing loss H91.90 Hives L50.9 Rash R21 Retinopathy H35.00 Rheumatoid arthritis M06.9 Amputation of left middle finger S68.113A Pericarditis (Resolved) I31.9 Allergies adhesive tape Allergy (Severe, Verified 01/27/19 21:37) Unknown Home Medications: Ambulatory Orders Medication Instructions Recorded Aspirin [Aspirin, Baby] 81 mg PO DAILY@0800 02/18/15 Colchicine 0.6 mg PO X1 PRN 02/18/15 Glucagon 0.5 mg IM X1 PRN 02/18/15 Grape Seed Extract [Grape Seed] 25 mg PO DAILY 02/18/15 Magnesium 500 mg PO DAILY 02/18/15 Norethindrone [Nor-Q-D] 1 tab PO DAILY 02/18/15 insulin aspart U-100 100 unit/mL See Rx Instructions SC TID ml 12/12/17 subcutaneous solution linagliptin 5 mg tablet 5 mg PO DAILY 12/12/17 clopidogrel 75 mg tablet 75 mg PO DAILY #90 tab 03/28/18 carvedilol 6.25 mg tablet 6.25 mg PO BID #180 tab 06/27/18 Cholecalciferol (VIT D3) [Vitamin 1,000 unit PO DAILY 08/11/18 D3] Insulin Degludec [Tresiba 40 unit SQ DAILY 08/11/18 Flextouch U-200] atorvastatin 80 mg tablet 80 mg PO QHS #90 tab 09/25/18 nitroglycerin 0.4 mg sublingual 0.4 mg SUBLINGUAL Q5M PRN #25 tab 11/13/18 tablet isosorbide mononitrate ER 30 mg 30 mg PO QAM 04/09/19 tablet,extended release 24 hr levothyroxine 125 mcg tablet 125 mcg PO DAILY 04/09/19 omeprazole 20 mg capsule,delayed 20 mg PO .PRN cap 04/09/19 release lisinopril 2.5 mg tablet 2.5 mg PO DAILY #90 tab 04/26/19 Surgical History: Surgical History (Last Reviewed 05/30/19 @ 10:09 by Porsha Rene DO) Presence of stent in coronary artery (Chronic) Onset Date: ~01/23/14 Z95.5 PTCA/MARCUS to mid RCA; angioplasty of prox PDA 01/23/[address] Glenn Merino at [facility] H/O angioplasty Z98.62 H/O breast augmentation Z98.82 H/O vitrectomy Z98.890 H/O: Z98.891 History of coronary angioplasty Onset Date: ~11/08/13 Z98.61 angioplasty to LAD; no stent @ [facility] 11/08/13 History of left heart catheterization Z98.890 History of tonsillectomy Z98.890, Z90.89 S/P appendectomy Z90.49 Surgical History: - - ROSGeneral: Denies fever, chills, sweatsEyes: Denies visual changes, blurred vision, double visionENT: Denies ear pain, rhinorrhea, sore throatCardiovascular: Denies chest pain, palpitations, heart racingRespiratory: Denies dyspnea, cough, sputum, dyspnea on exertion, orthopnea,PNDGI: Denies abdominal pain, nausea, vomiting, diarrhea, constipation, melenaGU: Denies dysuria, hematuria, frequencyMusculoskeletal: Denies myalgias, arthralgias, neck pain, back painSkin: Denies rash, abscess, abrasionsNeuro: Denies headache, weakness, paresthesiaPsych: Denies depression, anxietyEndo: Denies polyuria, polydipsia, polyphagiaHeme: Denies easy bruising, easy bleeding, lymphadenopathyAllergy: Denies hives, swelling Psychiatric History: No pertinent psych hx DIRECTOR TALENT History: No pertinent DIRECTOR TALENT history Lives: Spouse/ Significant Other - Her Haroldo Haroldo Smoking Status: Never smoker Tobacco Use: Non-smoker Alcohol: Occasional Drugs: None - *Family History Maternal Family History: Family History (Last Reviewed 05/30/19 @ 10:11 by Porsha Rene DO) Mother CAD (coronary artery disease) Brother Hypertension Melanoma Father Atrial fibrillation Grandmother Lung cancer Brother Diabetes Review of Systems Constitutional: Reports: Chills. Denies: Fever, Weight Change HEENT: Denies: Head Aches, Sinus Congestion, Sinus Drainage Cardiovascular: Denies: Chest Pain, Edema, Palpitations Respiratory: Reports: Shortness of Breath, Shortness of breath at rest, Shortness of breath upon exertion. Denies: Cough, Hemoptysis, Pleuritic Pain, Sputum production Gastrointestinal: Reports: Nausea - with the low blood sugar. Denies: Abdominal Pain, Vomiting Genitourinary: Denies: Dysuria, Frequency Gynecological: Denies: Breast symptoms, Vaginal discharge Musculoskeletal: Reports: Back Pain. Denies: Joint Pain, Joint Tenderness Skin: Denies: Rash, Wounds Neurological: Denies: Slurred speech, Focal weakness, Numbness, Tingling, Seizures Psychiatric: Denies: Anxiety, Depression, Homicidal Ideations, Suicidal Ideations Endocrine: Denies: Change in Body Habitus Hematologic/ Lymphatic: Denies: Easy Bruising, Easy Bleeding, Hx of blood clot VTE Information - Inpt Only VTE Present on Admission: No VTE Mechan Device Prophylaxis: SCD's, Knee High JULIO CESAR Hose VTE Pharm Prophylaxis ordered?: Yes Patient Problems: Active and Suspected Problems (Last Reviewed 09/13/18 @ 15:24 by Marisabel Driver) Acute respiratory failure (Acute) Aspiration pneumonia (Acute) Hypoglycemic event in diabetes (Acute) Metabolic acidosis (Acute) Syncope and collapse (Acute) due to hypoglycemia - Physical Exam General: Alert, Oriented x3, Cooperative, Well developed, Well nourished, - - having shaking chills HEENT: Atraumatic, Normocephalic, - - evidence of epistaxis on the face/dried blood Oral: Dry Mucosa Neck: Supple, No JVD Lungs: Clear to auscultation, No rhonchi, No wheeze, No rales, Short of Breath, Tachypneic Cardiovascular: Regular rate, Regular Rhythm, Normal S1, Normal S2, No murmurs, No Ectopic Activity, No rub noted, No Gallop Abdomen: Bowel Sounds Present, Soft, Non Tender, Non-Distended Extremities: No clubbing, No cyanosis, No edema Skin: No rashes Musculoskeletal: No Muscle Wasting Neurological: Cranial nerves II-XII grossly intact - she is legally blind, Motor Exam 5/5 strength throughout Psych/Mental Status: Normal Affect, Appropriate Vital Signs Temp Pulse Resp BP Pulse Ox 91.0 F L 89 24 H 144/71 H 95 05/30/19 06:33 05/30/19 08:14 05/30/19 08:14 05/30/19 07:41 05/30/19 08:42 Oxygen Flow Rate (L/min) 12 Oxygen Delivery Method Bi-pap Weight: 210 lb 15.718 oz Body Mass Index (BMI) 34.0 Finger Stick Blood Glucose 57 Laboratory Tests Past 24 Hrs 05/30/19 05/30/19 05/30/19 07:07 07:50 07:50 WBC 5.7 RBC 5.15 Hgb 14.8 Hct 43.8 MCV 85.0 MCH 28.7 MCHC 33.8 RDW 14.4 RDW Differential 44.9 H Plt Count 215 MPV 10.7 Immature Gran % (Auto) 0.400 Neut % (Auto) 85.5 H Lymph % (Auto) 7.4 L Cross % (Auto) 6.3 Eos % (Auto) 0.0 Baso % (Auto) 0.4 Absolute Neuts (auto) 4.9 Absolute Lymphs (auto) 0.42 L Total Counted Not Reportable Differential Comment COMMENT Sodium Cancelled 140 Potassium Cancelled 4.3 Chloride Cancelled 112 H Carbon Dioxide Cancelled 19.0 L Anion Gap Cancelled 9 BUN Cancelled 29 H Creatinine Cancelled 1.59 H Estim Creat Clear Calc Cancelled 40.07 Est GFR (MDRD) Af Amer Cancelled 44 L Est GFR (MDRD) Non-Af Cancelled 37 L BUN/Creatinine Ratio Cancelled 18.2 Glucose Cancelled 176 H Calcium Cancelled 8.4 L Total Creatine Kinase Troponin I Cancelled < 0.015 05/30/19 07:50 WBC RBC Hgb Hct MCV MCH MCHC RDW RDW Differential Plt Count MPV Immature Gran % (Auto) Neut % (Auto) Lymph % (Auto) Cross % (Auto) Eos % (Auto) Baso % (Auto) Absolute Neuts (auto) Absolute Lymphs (auto) Total Counted Differential Comment Sodium Potassium Chloride Carbon Dioxide Anion Gap BUN Creatinine Estim Creat Clear Calc Est GFR (MDRD) Af Amer Est GFR (MDRD) Non-Af BUN/Creatinine Ratio Glucose Calcium Total Creatine Kinase 425 H Troponin I POC Glucose 05/30/19 05/30/19 07:47 06:41 POC Glucose 174 H 56 L Assessment/Plan All Active Problems (Last Reviewed 09/13/18 @ 15:24 by Marisabel Driver) Acute respiratory failure (Acute) Aspiration pneumonia (Acute) Hypoglycemic event in diabetes (Acute) Metabolic acidosis (Acute) Syncope and collapse (Acute) Pericarditis (Resolved) Impressions 1. syncope and collapse with a fall to the floor face first due to hypoglycemia 2. Hypoglycemia 3. Type 1 diabetes mellitus 4. Suspected aspiration pneumonia 5. Hypertension 6. Hyperlipidemia 7. Chronic renal failure stage III 8. Metabolic acidosis-likely secondary to chronic renal failure 9. Coronary artery disease with history of PTCA to the LAD with no stent at [facility] on 11/08/2013 CA/MARCUS to the mid RCA with angioplasty of the proximal PDA on 01/23/2014 at [facility] 10. Acute respiratory failure with hypoxemia-suspect secondary to aspiration pneumonia Admit to the intensive care unit Consult Dr. Juan Francisco Cortez to participate in management Continue BiPAP ABG Lactic acid, liver panel, BNP, magnesium and phosphorus N.p.o. for now Lantus 15 units twice daily, Humalog 2 units every 6 hours plus sliding scale insulin Blood cultures x2 Repeat EKG once transfer to MICU occurs CODE STATUS: Discussed code status at length with the patient and her Haroldo including the difference between FULL CODE, DNR CCA and DNR CC status. All questions were answered. An order for full code was entered into the computer. A total of 20 minutes face to face time was devoted to advanced care planning. Code Visit Inpatient E&M: 49503 Init Hosp L3
--- NOTE | 2019-05-30 09:24 | PCM.CON.CC ---
Reason for Consult Date of Consultation: 05/30/19 Reason for Consultation: Acute respiratory failure History of Present Illness: The patient is a 48-year-old female, with a history as outlined below, who presented to the emergency department on the morning of May 30 with altered mentation in the setting of hypoglycemia. The patient is a known type I diabetic, who has been managed primarily by her primary care provider. She also has a known history of coronary artery disease status post stent placement to the mid RCA in 2013. The patient was reportedly found down on the floor this morning by her . Per EMS documentation, the patient had an initial blood sugar noted to be 36. She did receive glucagon while in route to the hospital which increased her blood sugar to 53 on recheck. The patient does recall having episodes similar to this in the past, but never as severe. There was also some concern that during this acute event the patient experienced an episode of emesis with potential aspiration of gastric contents. On presentation to the emergency department, the patient was initially noted to be tachypneic and hypoxic on room air. She was subsequently placed on a nonrebreather. Initial laboratory evaluation revealed no evidence of a leukocytosis. Chemistry profile was notable for a creatinine of 1.59 with a bicarbonate of 19 and chloride of 112. Total CK was elevated to 425. Troponin was negative. The patient was given an amp of D50. Her mentation subsequently improved. CT head revealed no acute intracranial abnormality. Plain film chest x-ray revealed bilateral interstitial prominence bilateral. The patient eventually had to be transitioned from a nonrebreather to BiPAP. She was subsequently transferred to the medical intensive care unit for ongoing management. Past Medical History Past Medical History (Chronic Problems): Chronic Problems (Last Reviewed 05/30/19 @ 10:08 by Porsha Rene DO) Chronic renal failure, stage 3 (moderate) (Chronic) Presence of stent in coronary artery (Chronic ~01/23/14) PTCA/MARCUS to mid RCA; angioplasty of prox PDA 01/23/[address] Glenn Merino at [facility] Atherosclerotic heart disease of [place] coronary artery without angina pectoris (Chronic) angioplasty to LAD; no stent @ [facility] 11/08/13; PTCA/MARCUS to mid RCA; angioplasty of prox PDA @ [facility] 01/23/14 ST elevation myocardial infarction (STEMI) of anterior wall (Chronic) Hypothyroidism (Chronic) Hyperlipidemia (Chronic) Controlled. No change. Tolerating statin well HTN (hypertension) (Chronic) BP 126/64 No change in regimen Diabetes type 1, controlled (Chronic) Medical History: Medical History (Last Reviewed 05/30/19 @ 10:08 by Porsha Rene DO) Atherosclerotic heart disease of [place] coronary artery without angina pectoris (Chronic) I25.10 angioplasty to LAD; no stent @ [facility] 11/08/13; PTCA/MARCUS to mid RCA; angioplasty of prox PDA @ [facility] 01/23/14 ST elevation myocardial infarction (STEMI) of anterior wall (Chronic) I21.09 Hypothyroidism (Chronic) E03.9 Hyperlipidemia (Chronic) E78.5 Controlled. No change. Tolerating statin well HTN (hypertension) (Chronic) I10 BP 126/64 No change in regimen Diabetes type 1, controlled (Chronic) E10.9 Anxiety F41.9 Asthma J45.909 Blindness H54.7 Diabetic retinopathy E11.319 Family history of hypertension Z82.49 Hearing loss H91.90 Hives L50.9 Rash R21 Retinopathy H35.00 Rheumatoid arthritis M06.9 Amputation of left middle finger S68.113A Pericarditis (Resolved) I31.9 Allergies adhesive tape Allergy (Severe, Verified 01/27/19 21:37) Unknown Home Medications: Ambulatory Orders Medication Instructions Recorded Aspirin [Aspirin, Baby] 81 mg PO DAILY@0800 02/18/15 Colchicine 0.6 mg PO X1 PRN 02/18/15 Glucagon 0.5 mg IM X1 PRN 02/18/15 Grape Seed Extract [Grape Seed] 25 mg PO DAILY 02/18/15 Magnesium 500 mg PO DAILY 02/18/15 Norethindrone [Nor-Q-D] 1 tab PO DAILY 02/18/15 insulin aspart U-100 100 unit/mL See Rx Instructions SC TID ml 12/12/17 subcutaneous solution linagliptin 5 mg tablet 5 mg PO DAILY 12/12/17 clopidogrel 75 mg tablet 75 mg PO DAILY #90 tab 03/28/18 carvedilol 6.25 mg tablet 6.25 mg PO BID #180 tab 06/27/18 Cholecalciferol (VIT D3) [Vitamin 1,000 unit PO DAILY 08/11/18 D3] Insulin Degludec [Tresiba 40 unit SQ DAILY 08/11/18 Flextouch U-200] atorvastatin 80 mg tablet 80 mg PO QHS #90 tab 09/25/18 nitroglycerin 0.4 mg sublingual 0.4 mg SUBLINGUAL Q5M PRN #25 tab 11/13/18 tablet isosorbide mononitrate ER 30 mg 30 mg PO QAM 04/09/19 tablet,extended release 24 hr levothyroxine 125 mcg tablet 125 mcg PO DAILY 04/09/19 omeprazole 20 mg capsule,delayed 20 mg PO .PRN cap 04/09/19 release lisinopril 2.5 mg tablet 2.5 mg PO DAILY #90 tab 04/26/19 Surgical History: Surgical History (Last Reviewed 05/30/19 @ 10:09 by Porsha Rene DO) Presence of stent in coronary artery (Chronic) Onset Date: ~01/23/14 Z95.5 PTCA/MARCUS to mid RCA; angioplasty of prox PDA 01/23/[address] Glenn Merino at [facility] H/O angioplasty Z98.62 H/O breast augmentation Z98.82 H/O vitrectomy Z98.890 H/O: Z98.891 History of coronary angioplasty Onset Date: ~11/08/13 Z98.61 angioplasty to LAD; no stent @ [facility] 11/08/13 History of left heart catheterization Z98.890 History of tonsillectomy Z98.890, Z90.89 S/P appendectomy Z90.49 Surgical History: - - ROSGeneral: Denies fever, chills, sweatsEyes: Denies visual changes, blurred vision, double visionENT: Denies ear pain, rhinorrhea, sore throatCardiovascular: Denies chest pain, palpitations, heart racingRespiratory: Denies dyspnea, cough, sputum, dyspnea on exertion, orthopnea,PNDGI: Denies abdominal pain, nausea, vomiting, diarrhea, constipation, melenaGU: Denies dysuria, hematuria, frequencyMusculoskeletal: Denies myalgias, arthralgias, neck pain, back painSkin: Denies rash, abscess, abrasionsNeuro: Denies headache, weakness, paresthesiaPsych: Denies depression, anxietyEndo: Denies polyuria, polydipsia, polyphagiaHeme: Denies easy bruising, easy bleeding, lymphadenopathyAllergy: Denies hives, swelling Smoking Status: Never smoker Alcohol: None Drugs: None - *Family History Maternal Family History: Family History (Last Reviewed 05/30/19 @ 10:11 by Porsha Rene DO) Mother CAD (coronary artery disease) Brother Hypertension Melanoma Father Atrial fibrillation Grandmother Lung cancer Brother Diabetes Review of Systems Constitutional: Reports: Weakness, Fatigue. Denies: Chills, Fever Eyes: Reports: Blurred vision, - - +Legal Blindness HEENT: Denies: Head Aches, Sinus Congestion, Sinus Drainage Cardiovascular: Denies: Chest Pain, Palpitations Respiratory: Reports: Cough. Denies: Sputum production Gastrointestinal: Denies: Abdominal Pain, Nausea, Vomiting Genitourinary: Denies: Dysuria Musculoskeletal: Denies: Joint Pain, Joint Tenderness Skin: Denies: Rash, Wounds Neurological: Reports: Confusion. Denies: Focal weakness, Numbness, Tingling Psychiatric: Denies: Anxiety, Depression, Homicidal Ideations, Suicidal Ideations Hematologic/ Lymphatic: Denies: Easy Bruising, Easy Bleeding Patient Problems: Active and Suspected Problems (Last Reviewed 05/30/19 @ 10:08 by Porsha Rene DO) Acute respiratory failure (Acute) Aspiration pneumonia (Acute) Hypoglycemic event in diabetes (Acute) Metabolic acidosis (Acute) Syncope and collapse (Acute) due to hypoglycemia Objective: The patient's most recent lab work, culture data and imaging studies have all been personally reviewed. Surface echocardiogram from September 2018 revealed evidence of diastolic dysfunction with an ejection fraction of 70%. Right ventricular systolic pressure was estimated to be 40 mmHg. - Physical Exam General: Alert, Cooperative, No apparent distress, - - BiPAP currently in place. HEENT: Atraumatic, PERRLA, Normocephalic Oral: Dry Mucosa Neck: Supple, No Nodes, Trachea Midline Lungs: Normal air movement, No rhonchi, No wheeze, No rales Cardiovascular: Regular rate, Regular Rhythm, Normal S1, Normal S2 Abdomen: Bowel Sounds Present, Soft, Non Tender Extremities: No clubbing, No cyanosis, No edema Skin: No breakdown Musculoskeletal: No Tenderness to Palpation of Joints or Extremities Lymphatic: No Cervical, Supraclavicular, or Inguinal Adenopathy Neurological: Neuro grossly intact Psych/Mental Status: Normal Affect, Appropriate Vital Signs Temp Pulse Resp BP Pulse Ox 91.0 F L 89 24 H 144/71 H 95 05/30/19 06:33 05/30/19 08:14 05/30/19 08:14 05/30/19 07:41 05/30/19 08:42 Oxygen Flow Rate (L/min) 12 Oxygen Delivery Method Bi-pap Weight: 210 lb 15.718 oz Body Mass Index (BMI) 34.0 Finger Stick Blood Glucose 57 Laboratory Tests Past 24 Hrs 05/30/19 05/30/19 05/30/19 07:07 07:50 07:50 WBC 5.7 RBC 5.15 Hgb 14.8 Hct 43.8 MCV 85.0 MCH 28.7 MCHC 33.8 RDW 14.4 RDW Differential 44.9 H Plt Count 215 MPV 10.7 Immature Gran % (Auto) 0.400 Neut % (Auto) 85.5 H Lymph % (Auto) 7.4 L [place] % (Auto) 6.3 Eos % (Auto) 0.0 Baso % (Auto) 0.4 Absolute Neuts (auto) 4.9 Absolute Lymphs (auto) 0.42 L Total Counted Not Reportable Differential Comment COMMENT Sodium Cancelled 140 Potassium Cancelled 4.3 Chloride Cancelled 112 H Carbon Dioxide Cancelled 19.0 L Anion Gap Cancelled 9 BUN Cancelled 29 H Creatinine Cancelled 1.59 H Estim Creat Clear Calc Cancelled 40.07 Est GFR (MDRD) Af Amer Cancelled 44 L Est GFR (MDRD) Non-Af Cancelled 37 L BUN/Creatinine Ratio Cancelled 18.2 Glucose Cancelled 176 H Calcium Cancelled 8.4 L Total Creatine Kinase Troponin I Cancelled < 0.015 05/30/19 07:50 WBC RBC Hgb Hct MCV MCH MCHC RDW RDW Differential Plt Count MPV Immature Gran % (Auto) Neut % (Auto) Lymph % (Auto) [place] % (Auto) Eos % (Auto) Baso % (Auto) Absolute Neuts (auto) Absolute Lymphs (auto) Total Counted Differential Comment Sodium Potassium Chloride Carbon Dioxide Anion Gap BUN Creatinine Estim Creat Clear Calc Est GFR (MDRD) Af Amer Est GFR (MDRD) Non-Af BUN/Creatinine Ratio Glucose Calcium Total Creatine Kinase 425 H Troponin I POC Glucose 05/30/19 05/30/19 07:47 06:41 POC Glucose 174 H 56 L Clinical Impression(s) from Imaging Studies Brain CT 05/30/19 06:44 IMPRESSION: No acute intracranial abnormality. Minimal paranasal sinus mucosal thickening. Globes are diffusely high attenuation noted previously. Electronically Signed: Jay Dow MD at 7:43 EDT , Service support , Chest X-Ray 05/30/19 06:44 IMPRESSION: Mild diffuse interstitial lung prominence likely due to underlying edema. Electronically Signed: Harjinder Wright, at 7:03 EDT Tel , Service support , Assessment/Plan Active and Suspected Problems (Last Reviewed 05/30/19 @ 10:08 by Porsha Rene DO) Acute respiratory failure (Acute) Aspiration pneumonia (Acute) Hypoglycemic event in diabetes (Acute) Metabolic acidosis (Acute) Syncope and collapse (Acute) due to hypoglycemia RECOMMENDATIONS: 1. Start dextrose containing supplemental IV fluids. 2. Start broad-spectrum antimicrobials. 3. Check strep and urine Legionella antigens along with respiratory viral panel. 4. Check blood and urine cultures. 5. Check lactate level and BNP. 6. Place PICC line, given lack of IV access. 7. Obtain arterial blood gas. 8. Wean FiO2 to maintain oxygen saturations at or above 90%. IMPRESSIONS: 1. Encephalopathy Likely secondary to profound hypoglycemia noted on presentation. The patient already received glucagon with some stabilization of blood sugars noted. Given that she has prescribed a long-acting insulin in her home environment, would recommend starting dextrose containing supplemental IV fluids. Her mentation seems to have improved with stabilization of her blood glucose levels. CT head was negative. We will continue to monitor accordingly. 2. Acute hypoxemic respiratory failure secondary to presumed aspiration pneumonia There was concern for an acute aspiration event during the patient's presentation. Therefore, agree with continuing empiric antimicrobial coverage for potential aspiration pneumonia, pending infectious work-up. Recommend checking BNP as well. The patient will be continued on BiPAP with plans to wean FiO2 to maintain oxygen saturations at or above 90%. Check arterial blood gas as well. 3. Type 1 diabetes mellitus/hypoglycemia Start dextrose containing supplemental IV fluids and hold insulin. 4. Hypertension/hyperlipidemia/coronary artery disease/legally blind Complicates care, management, recovery and prognosis. Continue home cardiac medications as indicated. TIME: 40 minutes of critical care time, independent of procedures, was spent addressing the patient's encephalopathy, profound hypoglycemia, acute hypoxemic respiratory failure, aspiration pneumonia, review of all data and collaboration with the care team. ([id number]) Code Visit 9xxxx: [id number] Critical care first hour
[2019-05-30 09:31] LABS: Bedside Glucose 105 mg/dL (70-110)
[2019-05-30 09:35] LABS: Allen Test POS; Base Excess -7 mmol/L (-2 to +2); Bicarbonate 18.6 mmol/L (22-26); Blood Gas Specimen Type ART; EPAP 6; FI02 50; IPAP 12; PO2 70 mmHG (75-100); RR 12; SITE L Radial; SO2 93 % (95-99); Time Given 935; Total Carbon Dioxide 20 mmol/L; pCO2 33.2 mmHg (35-45); pH 7.36 (7.35-7.45)
--- NOTE | 2019-05-30 09:39 | CPS ---
G DRAWN. RESULTS GIVEN TO DR. POLLOCK AND DR. GUNTER. NO NEW ORDERS RECEIVED AT THIS TIME.
[2019-05-30 09:56] LABS: International Normalized Ratio 1.1; Partial Thromboplast Time 28.7 Seconds (24.1-36.2); Prothrombin Time (Protime)PT. 14.4 SECONDS (11.7-14.9)
[2019-05-30 10:07] LABS: BNP,B-Type NATRIURETIC PEPTIDE 101.9 pg/mL (0-100)
[2019-05-30 10:09] LABS: AST(SGOT) 34 U/L (15-37); Alanine Aminotransfer ALT/SGPT 25 U/L (13-56); Albumin, Serum 3.4 g/dL (3.2-5.0); Alkaline Phosphatase 70 U/L (45-117); Bilirubin, Direct 0.27 mg/dL (0.00-0.30); Phosphorus 2.3 mg/dL (2.5-4.9); Protein, Total 6.4 g/dL (6.4-8.2)
[2019-05-30 10:19] LABS: Lactic Acid 1.2 mmol/L (0.4-2.0)
--- NOTE | 2019-05-30 10:20 | NURSING ---
1020 pt c/o not feeling well, request blood sugar check. accucheck 28. Dr. Rene aware. pt w/out IV access. OJ w/4 packs sugar given. 1023 central line placement begun by Dr. Rene, pt george and diaphoretic 1025 glucagon IM given w/verification per Dr. Rene, central line placement begun by Dr. Rene 1028 LSC TL placed per Dr. Rene, 1 amp D50 given per Dr. Rene 1030 pt color returning to pink and much less diaphoretic, accucheck recheck 200
[2019-05-30 10:41] LABS: T4 Free Direct 1.59 ng/dL (0.76-1.46)
[2019-05-30] MEDS: Glucagon 1 MG/ML Syringe IM (11:25)
--- NOTE | 2019-05-30 11:33 | RAD_ITS ---
STUDY: X-RAY CHEST REASON FOR EXAM: Female, 48 years old. Status post central line placement. TECHNIQUE: Single AP portable view of the chest. COMPARISON: 05/30/2019. FINDINGS: There is a new right subclavian central venous catheter with its tip in the atriocaval junction region. Extensive bilateral infiltrates/edema are again seen unchanged since prior exam. There are hypoventilatory changes. There is no demonstrated pleural abnormality. Normal size heart. Normal mediastinum and michael. Normal visualized pulmonary arteries. Normal visualized aortic arch and descending thoracic aorta. Normal visualized thoracic spine. Normal visualized ribs, clavicles, and shoulders. There is no demonstrated abnormality of the visualized soft tissue structures of the upper abdomen. RAD/CXR for Line Placement IMPRESSION: Status post right subclavian central venous catheter placement. Persistent bilateral infiltrates/edema which could be noncardiogenic. Electronically Signed: Jose Alberto Manriquez MD at 12:43 EDT Tel , Service support ,
[2019-05-30 12:05] LABS: Bedside Glucose 203 mg/dL (70-110)
[2019-05-30 12:05] LABS: Bedside Glucose 28 mg/dL (70-110)
[2019-05-30] MEDS: Dextrose 5%/0.9% NaCl 1,000 ML 125 ML IV ×2 (12:37→20:10)
[2019-05-30] MEDS: Aspirin 81 MG TAB.CHEW PO (12:54)
[2019-05-30] MEDS: Pantoprazole Sodium 40 MG Tablet PO (12:55)
[2019-05-30] MEDS: Clopidogrel Bisulfate 75 MG Tablet PO (12:55)
[2019-05-30] MEDS: guaiFENesin 1,200 MG Tablet 1200 MG PO ×2 (12:55→21:51)
[2019-05-30] MEDS: Carvedilol 6.25 MG Tablet PO ×2 (12:56→18:38)
[2019-05-30] MEDS: Levothyroxine 125 MCG Tablet PO (12:56)
[2019-05-30] MEDS: Lisinopril 2.5 MG Tablet PO (12:56)
[2019-05-30] MEDS: Acetaminophen 325 MG Tablet 650 MG PO (14:12)
[2019-05-30 14:15] LABS: M R Staph aureus DNA By PCR Negative (Negative); Probe Check PASS; Specimen Processing Control PASS
[2019-05-30 14:51] LABS: Bedside Glucose 187 mg/dL (70-110)
[2019-05-30 14:51] LABS: Bedside Glucose 194 mg/dL (70-110)
[2019-05-30 16:40] LABS: Bedside Glucose 152 mg/dL (70-110)
[2019-05-30 18:34] LABS: Hemoglobin A1c 8.2 % (4.2-6.3)
[2019-05-30] MEDS: Isosorbide Mononitrate 30 MG Tablet PO (18:38)
[2019-05-30 18:46] LABS: Bedside Glucose 142 mg/dL (70-110)
[2019-05-30 19:23] LABS: Bacteria 0 SEEN /hpf (None Seen); White Blood Cells 0 SEEN /hpf (0-5)
[2019-05-30 19:30] LABS: Color, Urine Yellow (Yellow); Glucose, Dipstick 50 mg/dl (Normal); Ketone-Dipstick 5 mg/dl (Negative); Leukocyte Esterase-Dipstick Negative /ul (Negative); Nitrite-Dipstick Negative (Negative); Occult Blood-Urine 250 /ul (Negative); Protein-Dipstick 100 mg/dl (Negative); Specific Gravity, Urine 1.015 (1.002-1.030); Urine Bilirubin Dipstick Negative (Negative); Urine Clarity Sl. Cloudy (Clear); Urine Urobilinogen Normal (Normal)
[2019-05-30 19:41] LABS: Mucous, Urine RARE /hpf (<or=2+); Red Blood Cells-Urine 10-25 SEEN /hpf (0-5); Squamous Epithelial Cells - UA 0-5 SEEN /hpf (5-10)
[2019-05-30 19:42] LABS: Amorphous Sediment 1+ URATE; Fine Granular Cast- Urine 0-5 SEEN /lpf (0-5)
[2019-05-30 20:20] LABS: Bedside Glucose 155 mg/dL (70-110)
[2019-05-30] MEDS: Na Biphos/Potassium Phosphate PACKET 1 PACKET PO (21:46)
[2019-05-30] MEDS: Heparin Injection (Vial) 5,000 UNIT/ML VIAL 5000 UNIT SC (21:48)
[2019-05-30 22:21] LABS: Bedside Glucose 245 mg/dL (70-110)
[2019-05-31] VITALS (25 sets, daily range): BP systolic 100–127; BP diastolic 45–74; PULSE 81–94; RESP 17–25; TEMP 36.1–36.8; O2SAT 93–97
[2019-05-31 00:15] LABS: Bedside Glucose 282 mg/dL (70-110)
[2019-05-31] MEDS: 0.9% Normal Saline 1,000 ML 125 ML IV ×2 (00:40→10:04)
[2019-05-31] MEDS: Insulin Lispro 100 UNIT/ML INSULN.PEN SC ×2 (00:40→12:17)
[2019-05-31] MEDS: Acetaminophen 325 MG Tablet 650 MG PO ×4 (00:44→18:50)
[2019-05-31 05:08] LABS: Anion Gap 9 (5-15); BUN 33 mg/dL (7-18); BUN/Creat Ratio 19.3 RATIO (10-20); Calcium,Total 7.8 mg/dL (8.5-10.1); Chloride 112 mmol/L (98-107); Creatinine, Serum 1.71 mg/dL (0.55-1.02); EST Glomerular Filtration Rate 34 mL/min (>60); Est Glom Filt Rate - Afr Amer 41 mL/min (>60); Estimated Creatinine Clearance 41.59 ml/min; Glucose 171 mg/dL (74-106); Potassium 3.8 mmol/L (3.5-5.1); Sodium Level 143 mmol/L (136-145)
[2019-05-31 05:42] LABS: Absolute Lymphocyte Count 1.36 X10^3/ul (0.83-4.51); Absolute Neutrophil Count 11.2 X10^3/uL (2.0-7.7); Basophil# 0.03 X10^3/uL; Basophil% 0.2 % (0-1); Eosinophil# 0.03 X10^3/uL; Eosinophils% 0.2 % (0-5); Hematocrit 31.4 % (37-47); Hemoglobin 10.5 g/dl (12.0-15.0); Lymphocyte # 1.36 X10^3/ul (4.0); Lymphocyte % 10.2 % (19-41); Mean Corp Hgb Conc 33.4 g/gl (32-36); Mean Corpuscular Hgb 28.4 pg (27.0-32.0); Mean Corpuscular Volume 84.9 fL (81-99); Mean Platelet Vol. 11.4 fl (6.2-12.0); Monocyte# 0.65 X10^3/uL; Monocyte% 4.9 % (0-10); Neutrophil # 11.18 X10^3/uL (2.7-7.7); Neutrophil % 84.3 % (47-70); Platelet Count 195 K/mm3 (150-450); RBC Distribution Width CV 14.9 % (11.6-14.6); RBC Distribution Width SD 46.4 fl (35.1-43.9); White Blood Count 13.3 K/mm3 (4.4-11.0)
[2019-05-31 06:03] LABS: POSITIVE COUNT NO; POSITIVE DIFFERENTIAL NO; POSITIVE MORPHOLOGY NO
[2019-05-31] MEDS: Na Biphos/Potassium Phosphate PACKET 1 PACKET PO ×3 (06:26→21:37)
[2019-05-31] MEDS: Heparin Injection (Vial) 5,000 UNIT/ML VIAL 5000 UNIT SC ×3 (06:26→21:35)
[2019-05-31] MEDS: Levothyroxine 125 MCG Tablet PO (06:26)
[2019-05-31] MEDS: 0.9% NaCl Peripheral Flush Adult/Peds IV (06:27)
[2019-05-31] MEDS: Ondansetron 4 MG/2 ML Vial IV (06:31)
[2019-05-31 06:50] LABS: Bedside Glucose 138 mg/dL (70-110)
--- NOTE | 2019-05-31 07:08 | PN_ITS ---
Subjective: The patient was seen and examined at the bedside this morning. Events from the last 24 hours have been reviewed. The patient is currently afebrile, hemodynamically stable and maintaining appropriate oxygen saturations on 2 L/min via nasal cannula. Creatinine is up a bit to 1.71 this morning. Blood sugars have been stable. The patient reports no significant shortness of breath this morning. She does endorse the presence of a mild cough, which has largely been nonproductive in nature. Objective: The patient's most recent lab work, culture data and imaging studies have all been personally reviewed. Strep and urine Legionella antigens were both negative. Respiratory viral panel is pending. Blood and urine cultures are pending. Surface echocardiogram revealed evidence of stage I diastolic dysfunction with an ejection fraction of 75%. General: Alert, Cooperative, No apparent distress HEENT: Atraumatic, PERRLA, Normocephalic Oral: No Gingival or Mucosal Lesions/ Ulcerations Neck: Supple, No Nodes, Trachea Midline Lungs: No rhonchi, No wheeze, No rales Cardiovascular: Regular rate, Regular Rhythm, Normal S1, Normal S2 Abdomen: Bowel Sounds Present, Soft, Non Tender Extremities: No clubbing, No cyanosis, No edema Skin: No breakdown Musculoskeletal: No Tenderness to Palpation of Joints or Extremities, No Muscle Wasting Lymphatic: No Cervical, Supraclavicular, or Inguinal Adenopathy Neurological: Neuro grossly intact Psych/Mental Status: Normal Affect, Appropriate Vital Signs Temp Pulse Resp BP Pulse Ox 97.5 F L 94 25 H 118/61 95 05/31/19 04:00 05/31/19 06:00 05/31/19 06:00 05/31/19 06:00 05/31/19 06:37 Oxygen Flow Rate (L/min) 2 Oxygen Delivery Method Nasal Cannula Weight: 203 lb 11.314 oz Body Mass Index (BMI) 29.3 Finger Stick Blood Glucose 57 Intake and Output for Last 24 Hours 05/29/19 05/30/19 05/31/19 23:59 23:59 23:59 Intake Total 1016 / 2360 1344 / 1344 Output Total 700 / 700 Balance 316 / 1660 1344 / 1344 Labs (Last 48 Hours) 05/30/19 05/30/19 05/30/19 06:41 07:07 07:47 WBC RBC Hgb Hct MCV MCH MCHC RDW RDW Differential Plt Count MPV Immature Gran % (Auto) Neut % (Auto) Lymph % (Auto) [place] % (Auto) Eos % (Auto) Baso % (Auto) Absolute Neuts (auto) Absolute Lymphs (auto) Total Counted Differential Comment PT INR APTT Specimen Type Sample Site pH Bicarbonate Actual POC Total CO2 Base Excess O2 Saturation O2 % ABG pCO2 ABG pO2 Rolo Test Respiration Rate O2 Delivery Device EPAP IPAP Blood Gas Notified Whom Blood Gas Notified Time Sodium Cancelled Potassium Cancelled Chloride Cancelled Carbon Dioxide Cancelled Anion Gap Cancelled BUN Cancelled Creatinine Cancelled Estim Creat Clear Calc Cancelled Est GFR (MDRD) Af Amer Cancelled Est GFR (MDRD) Non-Af Cancelled BUN/Creatinine Ratio Cancelled Glucose Cancelled Hemoglobin A1c Lactic Acid Calcium Cancelled Phosphorus Magnesium Total Bilirubin Direct Bilirubin AST ALT Alkaline Phosphatase Total Creatine Kinase Troponin I Cancelled B-Natriuretic Peptide Total Protein Albumin Globulin Free T4 Urine Color Urine Clarity Urine pH Ur Specific [place] Urine Protein Urine Glucose (UA) Urine Ketones Urine Occult Blood Urine Nitrite Urine Bilirubin Urine Urobilinogen Ur Leukocyte Esterase Urine RBC Urine WBC Ur Squamous Epith Cells Amorphous Sediment Urine Bacteria Fine Granular Casts Urine Mucus MRSA (PCR) POC Glucose 56 L 174 H 05/30/19 05/30/19 05/30/19 07:50 07:50 07:50 WBC 5.7 RBC 5.15 Hgb 14.8 Hct 43.8 MCV 85.0 MCH 28.7 MCHC 33.8 RDW 14.4 RDW Differential 44.9 H Plt Count 215 MPV 10.7 Immature Gran % (Auto) 0.400 Neut % (Auto) 85.5 H Lymph % (Auto) 7.4 L [place] % (Auto) 6.3 Eos % (Auto) 0.0 Baso % (Auto) 0.4 Absolute Neuts (auto) 4.9 Absolute Lymphs (auto) 0.42 L Total Counted Not Reportable Differential Comment COMMENT PT INR APTT Specimen Type Sample Site pH Bicarbonate Actual POC Total CO2 Base Excess O2 Saturation O2 % ABG pCO2 ABG pO2 Rolo Test Respiration Rate O2 Delivery Device EPAP IPAP Blood Gas Notified Whom Blood Gas Notified Time Sodium 140 Potassium 4.3 Chloride 112 H Carbon Dioxide 19.0 L Anion Gap 9 BUN 29 H Creatinine 1.59 H Estim Creat Clear Calc 40.07 Est GFR (MDRD) Af Amer 44 L Est GFR (MDRD) Non-Af 37 L BUN/Creatinine Ratio 18.2 Glucose 176 H Hemoglobin A1c Lactic Acid Calcium 8.4 L Phosphorus Magnesium Total Bilirubin Direct Bilirubin AST ALT Alkaline Phosphatase Total Creatine Kinase 425 H Troponin I < 0.015 B-Natriuretic Peptide Total Protein Albumin Globulin Free T4 Urine Color Urine Clarity Urine pH Ur Specific [place] Urine Protein Urine Glucose (UA) Urine Ketones Urine Occult Blood Urine Nitrite Urine Bilirubin Urine Urobilinogen Ur Leukocyte Esterase Urine RBC Urine WBC Ur Squamous Epith Cells Amorphous Sediment Urine Bacteria Fine Granular Casts Urine Mucus MRSA (PCR) POC Glucose 05/30/19 05/30/19 05/30/19 07:50 09:28 09:31 WBC RBC Hgb Hct MCV MCH MCHC RDW RDW Differential Plt Count MPV Immature Gran % (Auto) Neut % (Auto) Lymph % (Auto) [place] % (Auto) Eos % (Auto) Baso % (Auto) Absolute Neuts (auto) Absolute Lymphs (auto) Total Counted Differential Comment PT INR APTT Specimen Type ART Sample Site L Radial pH 7.36 Bicarbonate Actual 18.6 L POC Total CO2 20 Base Excess -7 L O2 Saturation 93 L O2 % 50 ABG pCO2 33.2 L ABG pO2 70 L Rolo Test POS Respiration Rate 12 O2 Delivery Device Bi / C PAP EPAP 6 IPAP 12 Blood Gas Notified Whom ICU Blood Gas Notified Time 935 Sodium Potassium Chloride Carbon Dioxide Anion Gap BUN Creatinine Estim Creat Clear Calc Est GFR (MDRD) Af Amer Est GFR (MDRD) Non-Af BUN/Creatinine Ratio Glucose Hemoglobin A1c Lactic Acid Calcium Phosphorus Magnesium Total Bilirubin Direct Bilirubin AST ALT Alkaline Phosphatase Total Creatine Kinase Troponin I B-Natriuretic Peptide 101.9 H Total Protein Albumin Globulin Free T4 Urine Color Urine Clarity Urine pH Ur Specific [place] Urine Protein Urine Glucose (UA) Urine Ketones Urine Occult Blood Urine Nitrite Urine Bilirubin Urine Urobilinogen Ur Leukocyte Esterase Urine RBC Urine WBC Ur Squamous Epith Cells Amorphous Sediment Urine Bacteria Fine Granular Casts Urine Mucus MRSA (PCR) POC Glucose 105 05/30/19 05/30/19 05/30/19 09:36 09:36 09:36 WBC RBC Hgb Hct MCV MCH MCHC RDW RDW Differential Plt Count MPV Immature Gran % (Auto) Neut % (Auto) Lymph % (Auto) [place] % (Auto) Eos % (Auto) Baso % (Auto) Absolute Neuts (auto) Absolute Lymphs (auto) Total Counted Differential Comment PT INR APTT Specimen Type Sample Site pH Bicarbonate Actual POC Total CO2 Base Excess O2 Saturation O2 % ABG pCO2 ABG pO2 Rolo Test Respiration Rate O2 Delivery Device EPAP IPAP Blood Gas Notified Whom Blood Gas Notified Time Sodium Potassium Chloride Carbon Dioxide Anion Gap BUN Creatinine Estim Creat Clear Calc Est GFR (MDRD) Af Amer Est GFR (MDRD) Non-Af BUN/Creatinine Ratio Glucose Hemoglobin A1c Lactic Acid 1.2 Calcium Phosphorus 2.3 L Magnesium 2.0 Total Bilirubin 0.90 Direct Bilirubin 0.27 AST 34 ALT 25 Alkaline Phosphatase 70 Total Creatine Kinase Troponin I B-Natriuretic Peptide Total Protein 6.4 Albumin 3.4 Globulin 3.0 Free T4 Urine Color Urine Clarity Urine pH Ur Specific [place] Urine Protein Urine Glucose (UA) Urine Ketones Urine Occult Blood Urine Nitrite Urine Bilirubin Urine Urobilinogen Ur Leukocyte Esterase Urine RBC Urine WBC Ur Squamous Epith Cells Amorphous Sediment Urine Bacteria Fine Granular Casts Urine Mucus MRSA (PCR) POC Glucose 05/30/19 05/30/19 05/30/19 09:36 09:36 10:30 WBC RBC Hgb Hct MCV MCH MCHC RDW RDW Differential Plt Count MPV Immature Gran % (Auto) Neut % (Auto) Lymph % (Auto) [place] % (Auto) Eos % (Auto) Baso % (Auto) Absolute Neuts (auto) Absolute Lymphs (auto) Total Counted Differential Comment PT 14.4 INR 1.1 APTT 28.7 Specimen Type Sample Site pH Bicarbonate Actual POC Total CO2 Base Excess O2 Saturation O2 % ABG pCO2 ABG pO2 Rolo Test Respiration Rate O2 Delivery Device EPAP IPAP Blood Gas Notified Whom Blood Gas Notified Time Sodium Potassium Chloride Carbon Dioxide Anion Gap BUN Creatinine Estim Creat Clear Calc Est GFR (MDRD) Af Amer Est GFR (MDRD) Non-Af BUN/Creatinine Ratio Glucose Hemoglobin A1c Lactic Acid Calcium Phosphorus Magnesium Total Bilirubin Direct Bilirubin AST ALT Alkaline Phosphatase Total Creatine Kinase Troponin I B-Natriuretic Peptide Total Protein Albumin Globulin Free T4 1.59 H Urine Color Urine Clarity Urine pH Ur Specific [place] Urine Protein Urine Glucose (UA) Urine Ketones Urine Occult Blood Urine Nitrite Urine Bilirubin Urine Urobilinogen Ur Leukocyte Esterase Urine RBC Urine WBC Ur Squamous Epith Cells Amorphous Sediment Urine Bacteria Fine Granular Casts Urine Mucus MRSA (PCR) Negative POC Glucose 05/30/19 05/30/19 05/30/19 11:08 11:45 12:51 WBC RBC Hgb Hct MCV MCH MCHC RDW RDW Differential Plt Count MPV Immature Gran % (Auto) Neut % (Auto) Lymph % (Auto) [place] % (Auto) Eos % (Auto) Baso % (Auto) Absolute Neuts (auto) Absolute Lymphs (auto) Total Counted Differential Comment PT INR APTT Specimen Type Sample Site pH Bicarbonate Actual POC Total CO2 Base Excess O2 Saturation O2 % ABG pCO2 ABG pO2 Rolo Test Respiration Rate O2 Delivery Device EPAP IPAP Blood Gas Notified Whom Blood Gas Notified Time Sodium Potassium Chloride Carbon Dioxide Anion Gap BUN Creatinine Estim Creat Clear Calc Est GFR (MDRD) Af Amer Est GFR (MDRD) Non-Af BUN/Creatinine Ratio Glucose Hemoglobin A1c Lactic Acid Calcium Phosphorus Magnesium Total Bilirubin Direct Bilirubin AST ALT Alkaline Phosphatase Total Creatine Kinase Troponin I B-Natriuretic Peptide Total Protein Albumin Globulin Free T4 Urine Color Urine Clarity Urine pH Ur Specific [place] Urine Protein Urine Glucose (UA) Urine Ketones Urine Occult Blood Urine Nitrite Urine Bilirubin Urine Urobilinogen Ur Leukocyte Esterase Urine RBC Urine WBC Ur Squamous Epith Cells Amorphous Sediment Urine Bacteria Fine Granular Casts Urine Mucus MRSA (PCR) POC Glucose 28 L* 203 H 194 H 05/30/19 05/30/19 05/30/19 14:14 16:10 16:31 WBC RBC Hgb Hct MCV MCH MCHC RDW RDW Differential Plt Count MPV Immature Gran % (Auto) Neut % (Auto) Lymph % (Auto) [place] % (Auto) Eos % (Auto) Baso % (Auto) Absolute Neuts (auto) Absolute Lymphs (auto) Total Counted Differential Comment PT INR APTT Specimen Type Sample Site pH Bicarbonate Actual POC Total CO2 Base Excess O2 Saturation O2 % ABG pCO2 ABG pO2 Rolo Test Respiration Rate O2 Delivery Device EPAP IPAP Blood Gas Notified Whom Blood Gas Notified Time Sodium Potassium Chloride Carbon Dioxide Anion Gap BUN Creatinine Estim Creat Clear Calc Est GFR (MDRD) Af Amer Est GFR (MDRD) Non-Af BUN/Creatinine Ratio Glucose Hemoglobin A1c Lactic Acid Calcium Phosphorus Magnesium Total Bilirubin Direct Bilirubin AST ALT Alkaline Phosphatase Total Creatine Kinase Troponin I 0.024 B-Natriuretic Peptide Total Protein Albumin Globulin Free T4 Urine Color Urine Clarity Urine pH Ur Specific [place] Urine Protein Urine Glucose (UA) Urine Ketones Urine Occult Blood Urine Nitrite Urine Bilirubin Urine Urobilinogen Ur Leukocyte Esterase Urine RBC Urine WBC Ur Squamous Epith Cells Amorphous Sediment Urine Bacteria Fine Granular Casts Urine Mucus MRSA (PCR) POC Glucose 187 H 152 H 05/30/19 05/30/19 05/30/19 17:57 18:10 18:30 WBC RBC Hgb Hct MCV MCH MCHC RDW RDW Differential Plt Count MPV Immature Gran % (Auto) Neut % (Auto) Lymph % (Auto) [place] % (Auto) Eos % (Auto) Baso % (Auto) Absolute Neuts (auto) Absolute Lymphs (auto) Total Counted Differential Comment PT INR APTT Specimen Type Sample Site pH Bicarbonate Actual POC Total CO2 Base Excess O2 Saturation O2 % ABG pCO2 ABG pO2 Rolo Test Respiration Rate O2 Delivery Device EPAP IPAP Blood Gas Notified Whom Blood Gas Notified Time Sodium Potassium Chloride Carbon Dioxide Anion Gap BUN Creatinine Estim Creat Clear Calc Est GFR (MDRD) Af Amer Est GFR (MDRD) Non-Af BUN/Creatinine Ratio Glucose Hemoglobin A1c 8.2 H Lactic Acid Calcium Phosphorus Magnesium Total Bilirubin Direct Bilirubin AST ALT Alkaline Phosphatase Total Creatine Kinase Troponin I B-Natriuretic Peptide Total Protein Albumin Globulin Free T4 Urine Color Yellow Urine Clarity Sl. Cloudy Urine pH 5.0 Ur Specific [place] 1.015 Urine Protein 100 H Urine Glucose (UA) 50 H Urine Ketones 5 H Urine Occult Blood 250 H Urine Nitrite Negative Urine Bilirubin Negative Urine Urobilinogen Normal Ur Leukocyte Esterase Negative Urine RBC 10-25 SEEN Urine WBC 0 SEEN Ur Squamous Epith Cells 0-5 SEEN Amorphous Sediment 1+ URATE Urine Bacteria 0 SEEN Fine Granular Casts 0-5 SEEN Urine Mucus RARE MRSA (PCR) POC Glucose 142 H 05/30/19 05/30/19 05/31/19 20:05 21:54 00:10 WBC RBC Hgb Hct MCV MCH MCHC RDW RDW Differential Plt Count MPV Immature Gran % (Auto) Neut % (Auto) Lymph % (Auto) [place] % (Auto) Eos % (Auto) Baso % (Auto) Absolute Neuts (auto) Absolute Lymphs (auto) Total Counted Differential Comment PT INR APTT Specimen Type Sample Site pH Bicarbonate Actual POC Total CO2 Base Excess O2 Saturation O2 % ABG pCO2 ABG pO2 Rolo Test Respiration Rate O2 Delivery Device EPAP IPAP Blood Gas Notified Whom Blood Gas Notified Time Sodium Potassium Chloride Carbon Dioxide Anion Gap BUN Creatinine Estim Creat Clear Calc Est GFR (MDRD) Af Amer Est GFR (MDRD) Non-Af BUN/Creatinine Ratio Glucose Hemoglobin A1c Lactic Acid Calcium Phosphorus Magnesium Total Bilirubin Direct Bilirubin AST ALT Alkaline Phosphatase Total Creatine Kinase Troponin I B-Natriuretic Peptide Total Protein Albumin Globulin Free T4 Urine Color Urine Clarity Urine pH Ur Specific [place] Urine Protein Urine Glucose (UA) Urine Ketones Urine Occult Blood Urine Nitrite Urine Bilirubin Urine Urobilinogen Ur Leukocyte Esterase Urine RBC Urine WBC Ur Squamous Epith Cells Amorphous Sediment Urine Bacteria Fine Granular Casts Urine Mucus MRSA (PCR) POC Glucose 155 H 245 H 282 H 05/31/19 05/31/19 05/31/19 04:20 04:20 06:45 WBC 13.3 H RBC 3.70 L Hgb 10.5 L Hct 31.4 L MCV 84.9 MCH 28.4 MCHC 33.4 RDW 14.9 H RDW Differential 46.4 H Plt Count 195 MPV 11.4 Immature Gran % (Auto) 0.200 Neut % (Auto) 84.3 H Lymph % (Auto) 10.2 L [place] % (Auto) 4.9 Eos % (Auto) 0.2 Baso % (Auto) 0.2 Absolute Neuts (auto) 11.2 H Absolute Lymphs (auto) 1.36 Total Counted Not Reportable Differential Comment PT INR APTT Specimen Type Sample Site pH Bicarbonate Actual POC Total CO2 Base Excess O2 Saturation O2 % ABG pCO2 ABG pO2 Rolo Test Respiration Rate O2 Delivery Device EPAP IPAP Blood Gas Notified Whom Blood Gas Notified Time Sodium 143 Potassium 3.8 Chloride 112 H Carbon Dioxide 22.0 Anion Gap 9 BUN 33 H Creatinine 1.71 H Estim Creat Clear Calc 41.59 Est GFR (MDRD) Af Amer 41 L Est GFR (MDRD) Non-Af 34 L BUN/Creatinine Ratio 19.3 Glucose 171 H Hemoglobin A1c Lactic Acid Calcium 7.8 L Phosphorus Magnesium Total Bilirubin Direct Bilirubin AST ALT Alkaline Phosphatase Total Creatine Kinase Troponin I B-Natriuretic Peptide Total Protein Albumin Globulin Free T4 Urine Color Urine Clarity Urine pH Ur Specific [place] Urine Protein Urine Glucose (UA) Urine Ketones Urine Occult Blood Urine Nitrite Urine Bilirubin Urine Urobilinogen Ur Leukocyte Esterase Urine RBC Urine WBC Ur Squamous Epith Cells Amorphous Sediment Urine Bacteria Fine Granular Casts Urine Mucus MRSA (PCR) POC Glucose 138 H Microbiology 05/30/19 18:30 Urine Catheter - Catheter Streptococcus pneumoniae Antigen (M - Final 07/03/19 18:30 Urine Catheter - Catheter Legionella Antigen - Final Clinical Impression(s) from Imaging Studies Brain CT 05/30/19 06:44 IMPRESSION: No acute intracranial abnormality. Minimal paranasal sinus mucosal thickening. Globes are diffusely high attenuation noted previously. Electronically Signed: Jay Dow MD at 7:43 EDT , Service support , Chest X-Ray 05/30/19 06:44 IMPRESSION: Mild diffuse interstitial lung prominence likely due to underlying edema. Electronically Signed: Harjinder Wright at 7:03 EDT Tel , Service support , Chest X-Ray 05/30/19 11:33 IMPRESSION: Status post right subclavian central venous catheter placement. Persistent bilateral infiltrates/edema which could be noncardiogenic. Electronically Signed: Jose Alberto Manriquez MD at 12:43 EDT Tel , Service support , Medical Necessity - Tobacco Use Smoking Status: Never smoker Tobacco Use: Non-smoker Assessment/Plan All Active Problems (Last Reviewed 05/30/19 @ 10:08 by Porsha Rene DO) Acute respiratory failure (Acute) Aspiration pneumonia (Acute) Hypoglycemic event in diabetes (Acute) Metabolic acidosis (Acute) Syncope and collapse (Acute) Pericarditis (Resolved) RECOMMENDATIONS: 1. Continue antibiotics with plans to complete a 7-day treatment course. 2. Wean supplemental oxygen as tolerated to maintain saturations at or above 90%. 3. Encourage incentive spirometer use and mobilize patient as tolerated. 4. Restart basal and sliding scale insulin coverage. IMPRESSIONS: 1. Encephalopathy Improved. Likely secondary to profound hypoglycemia noted on presentation. Bl ood sugars have stabilized with dextrose containing fluids. Her mentation also seems to have improved with stabilization of her blood glucose levels. CT head was negative. We will continue to monitor accordingly. We will plan to cautiously restart the patient's basal and sliding scale insulin regimen. 2. Acute hypoxemic respiratory failure secondary to presumed aspiration pneumo ember There was concern for an acute aspiration event during the patient's presentation. Therefore, we will plan to continue antimicrobial coverage for potential aspiration pneumonia. The patient was able to be weaned quickly from noninvasive positive pressure ventilatory support. She is currently maintaining appropriate oxygen saturations on minimal supplemental O2. Continue to wean to maintain oxygen saturations at or above 90%. Encourage incentive spirometer use and mobilize patient as tolerated. 3. Type 1 diabetes mellitus/hypoglycemia Given stabilization and blood glucose levels, plan to restart basal and sliding scale insulin regimen. The patient is currently tolerating a diet. 4. Hypertension/hyperlipidemia/coronary artery disease/legally blind Complicates care, management, recovery and prognosis. Continue home cardiac medications as indicated. This note was generated with [employer] dictation software. It may contain incorrect words, spelling, and punctuation that were not noted in checking the note before signing. Code Visit Inpatient E&M: 9[address]28 [facility] L[facility]
[2019-05-31 08:15] LABS: Bedside Glucose 88 mg/dL (70-110)
[2019-05-31] MEDS: Pantoprazole Sodium 40 MG Tablet PO (08:34)
[2019-05-31] MEDS: Carvedilol 6.25 MG Tablet PO ×2 (08:34→16:52)
[2019-05-31] MEDS: Aspirin 81 MG TAB.CHEW PO (08:34)
[2019-05-31] MEDS: Clopidogrel Bisulfate 75 MG Tablet PO (08:34)
[2019-05-31] MEDS: guaiFENesin 1,200 MG Tablet 1200 MG PO ×2 (08:34→21:37)
[2019-05-31] MEDS: Lisinopril 2.5 MG Tablet PO (08:35)
--- NOTE | 2019-05-31 08:57 | PN_ITS ---
Subjective: Day #2 Zosyn All events the past 24 hours of been reviewed Hypothermia has resolved and the current temperature is 97.5 She has been weaned down to a 2 L nasal cannula and is maintaining an oxygen saturation of 95 to 97%. Blood pressure is within normal limits. All lab was personally reviewed. The white blood cell count today is 13.3, up from 5.7, with a left shift. Hemoglobin is 10.5, down from 14.8 with hydration. Platelet count is within normal limits. Hemoglobin A1c is 8.2. Blood sugar record was reviewed. No CP, minimal SOB with exertion. 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 Most of the hypoglycemic episodes are at night. - Physical Exam General: Alert, Oriented x3, Cooperative Oral: Moist Mucosa Neck: Supple, No JVD Lungs: Clear to auscultation Cardiovascular: Regular rate, Regular Rhythm, Normal S1, Normal S2, No Gallop Abdomen: Bowel Sounds Present, Soft, Non Tender, Non-Distended Extremities: No clubbing, No cyanosis, No edema Skin: No rashes Neurological: Cranial nerves II-XII grossly intact, Neuro grossly intact Psych/Mental Status: Appropriate Vital Signs Temp Pulse Resp BP Pulse Ox 97.5 F L 94 25 H 118/61 95 05/31/19 04:00 05/31/19 06:00 05/31/19 06:00 05/31/19 06:00 05/31/19 06:37 Oxygen Flow Rate (L/min) 2 Oxygen Delivery Method Nasal Cannula Weight: 203 lb 11.314 oz Body Mass Index (BMI) 29.3 Finger Stick Blood Glucose 57 Intake and Output for Last 24 Hours 05/29/19 05/30/19 05/31/19 23:59 23:59 23:59 Intake Total 1016 / 2360 1344 / 1344 Output Total 700 / 700 Balance 316 / 1660 1344 / 1344 Microbiology Past 72 Hours 05/30/19 18:30 Streptococcus pneumoniae Antigen (M - Final Urine Catheter - Catheter 05/30/19 18:30 Legionella Antigen - Final Urine Catheter - Catheter Laboratory Tests Past 24 Hrs 05/30/19 05/30/19 05/30/19 07:50 09:31 09:36 WBC RBC Hgb Hct MCV MCH MCHC RDW RDW Differential Plt Count MPV Immature Gran % (Auto) Neut % (Auto) Lymph % (Auto) [place] % (Auto) Eos % (Auto) Baso % (Auto) Absolute Neuts (auto) Absolute Lymphs (auto) Total Counted PT INR APTT Specimen Type ART Sample Site L Radial pH 7.36 Bicarbonate Actual 18.6 L POC Total CO2 20 Base Excess -7 L O2 Saturation 93 L O2 % 50 ABG pCO2 33.2 L ABG pO2 70 L Rolo Test POS Respiration Rate 12 O2 Delivery Device Bi / C PAP EPAP 6 IPAP 12 Blood Gas Notified Whom ICU MD Blood Gas Notified Time 935 Sodium Potassium Chloride Carbon Dioxide Anion Gap BUN Creatinine Estim Creat Clear Calc Est GFR (MDRD) Af Amer Est GFR (MDRD) Non-Af BUN/Creatinine Ratio Glucose Hemoglobin A1c Lactic Acid Calcium Phosphorus Magnesium 2.0 Total Bilirubin 0.90 Direct Bilirubin 0.27 AST 34 ALT 25 Alkaline Phosphatase 70 Troponin I B-Natriuretic Peptide 101.9 H Total Protein 6.4 Albumin 3.4 Globulin 3.0 Free T4 Urine Color Urine Clarity Urine pH Ur Specific [place] Urine Protein Urine Glucose (UA) Urine Ketones Urine Occult Blood Urine Nitrite Urine Bilirubin Urine Urobilinogen Ur Leukocyte Esterase Urine RBC Urine WBC Ur Squamous Epith Cells Amorphous Sediment Urine Bacteria Fine Granular Casts Urine Mucus MRSA (PCR) 05/30/19 05/30/19 05/30/19 09:36 09:36 09:36 WBC RBC Hgb Hct MCV MCH MCHC RDW RDW Differential Plt Count MPV Immature Gran % (Auto) Neut % (Auto) Lymph % (Auto) [place] % (Auto) Eos % (Auto) Baso % (Auto) Absolute Neuts (auto) Absolute Lymphs (auto) Total Counted PT 14.4 INR 1.1 APTT 28.7 Specimen Type Sample Site pH Bicarbonate Actual POC Total CO2 Base Excess O2 Saturation O2 % ABG pCO2 ABG pO2 Rolo Test Respiration Rate O2 Delivery Device EPAP IPAP Blood Gas Notified Whom Blood Gas Notified Time Sodium Potassium Chloride Carbon Dioxide Anion Gap BUN Creatinine Estim Creat Clear Calc Est GFR (MDRD) Af Amer Est GFR (MDRD) Non-Af BUN/Creatinine Ratio Glucose Hemoglobin A1c Lactic Acid 1.2 Calcium Phosphorus 2.3 L Magnesium Total Bilirubin Direct Bilirubin AST ALT Alkaline Phosphatase Troponin I B-Natriuretic Peptide Total Protein Albumin Globulin Free T4 Urine Color Urine Clarity Urine pH Ur Specific [place] Urine Protein Urine Glucose (UA) Urine Ketones Urine Occult Blood Urine Nitrite Urine Bilirubin Urine Urobilinogen Ur Leukocyte Esterase Urine RBC Urine WBC Ur Squamous Epith Cells Amorphous Sediment Urine Bacteria Fine Granular Casts Urine Mucus MRSA (PCR) 05/30/19 05/30/19 05/30/19 09:36 10:30 16:10 WBC RBC Hgb Hct MCV MCH MCHC RDW RDW Differential Plt Count MPV Immature Gran % (Auto) Neut % (Auto) Lymph % (Auto) [place] % (Auto) Eos % (Auto) Baso % (Auto) Absolute Neuts (auto) Absolute Lymphs (auto) Total Counted PT INR APTT Specimen Type Sample Site pH Bicarbonate Actual POC Total CO2 Base Excess O2 Saturation O2 % ABG pCO2 ABG pO2 Rolo Test Respiration Rate O2 Delivery Device EPAP IPAP Blood Gas Notified Whom Blood Gas Notified Time Sodium Potassium Chloride Carbon Dioxide Anion Gap BUN Creatinine Estim Creat Clear Calc Est GFR (MDRD) Af Amer Est GFR (MDRD) Non-Af BUN/Creatinine Ratio Glucose Hemoglobin A1c Lactic Acid Calcium Phosphorus Magnesium Total Bilirubin Direct Bilirubin AST ALT Alkaline Phosphatase Troponin I 0.024 B-Natriuretic Peptide Total Protein Albumin Globulin Free T4 1.59 H Urine Color Urine Clarity Urine pH Ur Specific [place] Urine Protein Urine Glucose (UA) Urine Ketones Urine Occult Blood Urine Nitrite Urine Bilirubin Urine Urobilinogen Ur Leukocyte Esterase Urine RBC Urine WBC Ur Squamous Epith Cells Amorphous Sediment Urine Bacteria Fine Granular Casts Urine Mucus MRSA (PCR) Negative 05/30/19 05/30/19 05/31/19 18:10 18:30 04:20 WBC 13.3 H RBC 3.70 L Hgb 10.5 L Hct 31.4 L MCV 84.9 MCH 28.4 MCHC 33.4 RDW 14.9 H RDW Differential 46.4 H Plt Count 195 MPV 11.4 Immature Gran % (Auto) 0.200 Neut % (Auto) 84.3 H Lymph % (Auto) 10.2 L [place] % (Auto) 4.9 Eos % (Auto) 0.2 Baso % (Auto) 0.2 Absolute Neuts (auto) 11.2 H Absolute Lymphs (auto) 1.36 Total Counted Not Reportable PT INR APTT Specimen Type Sample Site pH Bicarbonate Actual POC Total CO2 Base Excess O2 Saturation O2 % ABG pCO2 ABG pO2 Rolo Test Respiration Rate O2 Delivery Device EPAP IPAP Blood Gas Notified Whom Blood Gas Notified Time Sodium Potassium Chloride Carbon Dioxide Anion Gap BUN Creatinine Estim Creat Clear Calc Est GFR (MDRD) Af Amer Est GFR (MDRD) Non-Af BUN/Creatinine Ratio Glucose Hemoglobin A1c 8.2 H Lactic Acid Calcium Phosphorus Magnesium Total Bilirubin Direct Bilirubin AST ALT Alkaline Phosphatase Troponin I B-Natriuretic Peptide Total Protein Albumin Globulin Free T4 Urine Color Yellow Urine Clarity Sl. Cloudy Urine pH 5.0 Ur Specific [place] 1.015 Urine Protein 100 H Urine Glucose (UA) 50 H Urine Ketones 5 H Urine Occult Blood 250 H Urine Nitrite Negative Urine Bilirubin Negative Urine Urobilinogen Normal Ur Leukocyte Esterase Negative Urine RBC 10-25 SEEN Urine WBC 0 SEEN Ur Squamous Epith Cells 0-5 SEEN Amorphous Sediment 1+ URATE Urine Bacteria 0 SEEN Fine Granular Casts 0-5 SEEN Urine Mucus RARE MRSA (PCR) 05/31/19 04:20 WBC RBC Hgb Hct MCV MCH MCHC RDW RDW Differential Plt Count MPV Immature Gran % (Auto) Neut % (Auto) Lymph % (Auto) [place] % (Auto) Eos % (Auto) Baso % (Auto) Absolute Neuts (auto) Absolute Lymphs (auto) Total Counted PT INR APTT Specimen Type Sample Site pH Bicarbonate Actual POC Total CO2 Base Excess O2 Saturation O2 % ABG pCO2 ABG pO2 Rolo Test Respiration Rate O2 Delivery Device EPAP IPAP Blood Gas Notified Whom Blood Gas Notified Time Sodium 143 Potassium 3.8 Chloride 112 H Carbon Dioxide 22.0 Anion Gap 9 BUN 33 H Creatinine 1.71 H Estim Creat Clear Calc 41.59 Est GFR (MDRD) Af Amer 41 L Est GFR (MDRD) Non-Af 34 L BUN/Creatinine Ratio 19.3 Glucose 171 H Hemoglobin A1c Lactic Acid Calcium 7.8 L Phosphorus Magnesium Total Bilirubin Direct Bilirubin AST ALT Alkaline Phosphatase Troponin I B-Natriuretic Peptide Total Protein Albumin Globulin Free T4 Urine Color Urine Clarity Urine pH Ur Specific [place] Urine Protein Urine Glucose (UA) Urine Ketones Urine Occult Blood Urine Nitrite Urine Bilirubin Urine Urobilinogen Ur Leukocyte Esterase Urine RBC Urine WBC Ur Squamous Epith Cells Amorphous Sediment Urine Bacteria Fine Granular Casts Urine Mucus MRSA (PCR) POC Glucose 05/31/19 05/31/19 05/31/19 08:13 06:45 00:10 POC Glucose 88 138 H 282 H 05/30/19 05/30/19 05/30/19 21:54 20:05 17:57 POC Glucose 245 H 155 H 142 H 05/30/19 05/30/1919 16:31 14:14 12:51 POC Glucose 152 H 187 H 194 H 05/30/19 05/30/19 05/30/19 11:45 11:08 09:28 POC Glucose 203 H 28 L* 105 Medical Necessity - Tobacco Use Smoking Status: Never smoker Tobacco Use: Non-smoker Assessment/Plan All Active Problems (Last Reviewed 05/30/19 @ 10:08 by Porsha Rene DO) Hypophosphatemia (Acute) Acute respiratory failure (Acute) Aspiration pneumonia (Acute) Hypoglycemic event in diabetes (Acute) Metabolic acidosis (Acute) Syncope and collapse (Acute) Pericarditis (Resolved) Impressions 1. syncope and collapse with a fall to the floor face first due to hypoglycemia 2. Hypoglycemia 3. Type 1 diabetes mellitus 4. Suspected aspiration pneumonia 5. Hypertension 6. Hyperlipidemia 7. Chronic renal failure stage III 8. Metabolic acidosis-likely secondary to chronic renal failure 9. Coronary artery disease with history of PTCA to the LAD with no stent at [facility] on 11/08/2013 CA/MARCUS to the mid RCA with angioplasty of the proximal PDA on 01/23/2014 at [facility] 10. Acute respiratory failure with hypoxemia-suspect secondary to aspiration pneumonia Continue Zosyn-will need a 7-day course of antibiotics for aspiration pneumonia. Wean oxygen as tolerated Continue IS Restart long-acting insulin and scheduled insulin with meals as well has continuing sliding scale insulin. Recheck lab in the a.m. Ambulatory pulse ox prior to discharge Code Visit Inpatient E&M: [id number] [place] [id number]
--- NOTE | 2019-05-31 09:30 | RAD_ITS ---
STUDY: X-RAY CHEST REASON FOR EXAM: Female, 48 years old. Aspiration pneumonia. TECHNIQUE: AP upright and lateral views. COMPARISON: 05/30/2019. FINDINGS: Left subclavian line catheter tip remains in the SVC. Persistent infiltrates in the lower lobes, right more than left. They may be due to aspiration pneumonia but are unchanged. There is no demonstrated pleural abnormality. Normal size heart. Normal mediastinum and michael. Normal visualized pulmonary arteries. Normal visualized aortic arch and descending thoracic aorta. Normal visualized thoracic spine. Normal visualized ribs, clavicles, and shoulders. There is no demonstrated abnormality of the visualized soft tissue structures of the upper abdomen. RAD/Chest PA and Lateral IMPRESSION: 1. Persistent bibasilar pneumonia, right greater than left. 2. No interval change when compared to 05/30/2019. Electronically Signed: Enio Brunson MD at 10:57 EDT , Service support ,
[2019-05-31] MEDS: Isosorbide Mononitrate 30 MG Tablet PO (10:05)
[2019-05-31 12:31] LABS: Bedside Glucose 165 mg/dL (70-110)
[2019-05-31] MEDS: Insulin Lispro 100 UNIT/ML INSULN.PEN 8 UNIT SC (16:41)
[2019-05-31 16:56] LABS: Bedside Glucose 201 mg/dL (70-110)
[2019-05-31 22:41] LABS: Bedside Glucose 215 mg/dL (70-110)
[2019-06-01] VITALS (7 sets, daily range): BP systolic 141–164; BP diastolic 61–68; PULSE 78–86; RESP 18; TEMP 36.8–37; O2SAT 96–98
[2019-06-01 02:46] LABS: Bedside Glucose 211 mg/dL (70-110)
[2019-06-01] MEDS: Levothyroxine 125 MCG Tablet PO (06:24)
[2019-06-01] MEDS: Heparin Injection (Vial) 5,000 UNIT/ML VIAL 5000 UNIT SC (06:24)
[2019-06-01] MEDS: Na Biphos/Potassium Phosphate PACKET 1 PACKET PO (06:24)
[2019-06-01] MEDS: Acetaminophen 325 MG Tablet 650 MG PO (06:33)
[2019-06-01 07:11] LABS: Bedside Glucose 156 mg/dL (70-110)
--- NOTE | 2019-06-01 07:26 | PN_ITS ---
Patient Problems: Active and Suspected Problems (Last Reviewed 05/30/19 @ 10:08 by Porsha Rene DO) Hypophosphatemia (Acute) Acute respiratory failure (Acute) Aspiration pneumonia (Acute) Hypoglycemic event in diabetes (Acute) Metabolic acidosis (Acute) Syncope and collapse (Acute) due to hypoglycemia Subjective: The patient was seen and examined at the bedside this morning. Events from the last 24 hours have been reviewed. The patient is currently afebrile, hemodynamically stable and maintaining appropriate oxygen saturations on 2 L/min via nasal cannula. She currently denies presence of shortness of breath. Objective: The patient's most recent lab work, culture data and imaging studies have all been personally reviewed. Strep and urine Legionella antigens were both negative. Respiratory viral panel is pending. Blood and urine cultures are pending. Surface echocardiogram revealed evidence of stage I diastolic dysfunction with an ejection fraction of 75%. - Physical Exam General: Alert, Cooperative, No apparent distress HEENT: Atraumatic, PERRLA, Normocephalic Oral: No Gingival or Mucosal Lesions/ Ulcerations Neck: Supple, No Nodes, Trachea Midline Lungs: No rhonchi, No wheeze, No rales, Diminished Cardiovascular: Regular rate, Regular Rhythm, Normal S1, Normal S2 Abdomen: Bowel Sounds Present, Soft, Non Tender Extremities: No clubbing, No cyanosis, No edema Skin: - - No significant change from previous Musculoskeletal: No Tenderness to Palpation of Joints or Extremities Lymphatic: No Cervical, Supraclavicular, or Inguinal Adenopathy Neurological: Neuro grossly intact Psych/Mental Status: Normal Affect, Appropriate Vital Signs Temp Pulse Resp BP Pulse Ox 98.6 F 81 18 141/61 H 96 06/01/19 02:50 06/01/19 03:01 06/01/19 02:50 06/01/19 02:50 06/01/19 03:15 Oxygen Flow Rate (L/min) 2 Oxygen Delivery Method Nasal Cannula Weight: 203 lb 11.314 oz Body Mass Index (BMI) 29.3 Finger Stick Blood Glucose 57 Intake and Output for Last 24 Hours 05/30/19 05/31/19 06/01/19 23:59 23:59 23:59 Intake Total 1016 / 2360 2043 / 2043 392 / 392 Output Total 700 / 700 300 / 300 Balance 316 / 1660 1743 / 1743 392 / 392 Microbiology Past 72 Hours 05/30/19 13:15 Respiratory Panel (PCR) - Final Mucosa - Nasopharyngeal 05/30/19 18:30 Streptococcus pneumoniae Antigen (M - Final Urine Catheter - Catheter 05/30/19 18:30 Legionella Antigen - Final Urine Catheter - Catheter POC Glucose 06/01/19 06/01/19 05/31/19 06:37 02:39 21:32 POC Glucose 156 H 211 H 215 H 05/31/19 05/31/19 05/31/19 16:39 12:13 08:13 POC Glucose 201 H 165 H 88 Clinical Impression(s) from Imaging Studies Brain CT 05/30/19 06:44 IMPRESSION: No acute intracranial abnormality. Minimal paranasal sinus mucosal thickening. Globes are diffusely high attenuation noted previously. Electronically Signed: Jay Dow MD at 7:43 EDT , Service support , Chest X-Ray 05/30/19 06:44 IMPRESSION: Mild diffuse interstitial lung prominence likely due to underlying edema. Electronically Signed: Harjinder Wright at 7:03 EDT Tel , Service support , Chest X-Ray 05/30/19 11:33 IMPRESSION: Status post right subclavian central venous catheter placement. Persistent bilateral infiltrates/edema which could be noncardiogenic. Electronically Signed: Jose Alberto Manriquez MD at 12:43 EDT Tel , Service support , Chest X-Ray 05/31/19 09:30 IMPRESSION: 1. Persistent bibasilar pneumonia, right greater than left. 2. No interval change when compared to 05/30/2019. Electronically Signed: Enio Brunson MD at 10:57 EDT , Service support , Medical Necessity - Tobacco Use Smoking Status: Never smoker Tobacco Use: Non-smoker Assessment/Plan All Active Problems (Last Reviewed 05/30/19 @ 10:08 by Porsha Rene DO) Hypophosphatemia (Acute) Acute respiratory failure (Acute) Aspiration pneumonia (Acute) Hypoglycemic event in diabetes (Acute) Metabolic acidosis (Acute) Syncope and collapse (Acute) Pericarditis (Resolved) RECOMMENDATIONS: 1. Continue antibiotics with plans to complete a 7-day treatment course. 2. Wean supplemental oxygen as tolerated to maintain saturations at or above 90%. 3. Encourage incentive spirometer use and mobilize patient as tolerated. 4. Restart basal and sliding scale insulin coverage. 5. Perform walking oximetry study prior to consideration for discharge from the hospital. IMPRESSIONS: 1. Encephalopathy Improved. Likely secondary to profound hypoglycemia noted on presentation. Blood sugars have stabilized with dextrose containing fluids. Her mentation also seems to have improved with stabilization of her blood glucose levels. CT head was negative. We will continue to monitor accordingly. Continue basal and sliding scale insulin regimen. 2. Acute hypoxemic respiratory failure secondary to presumed aspiration pneumonia There was concern for an acute aspiration event during the patient's presentation. Therefore, we will plan to continue antimicrobial coverage for potential aspiration pneumonia. The patient was able to be weaned quickly from noninvasive positive pressure ventilatory support. She is currently maintaining appropriate oxygen saturations on minimal supplemental O2. Continue to wean to maintain oxygen saturations at or above 90%. Encourage incentive spirometer use and mobilize patient as tolerated. I would plan to complete a total of 7 days of antimicrobial therapy. 3. Type 1 diabetes mellitus/hypoglycemia Given stabilization in blood glucose levels, continue basal and sliding scale insulin regimen. The patient is currently tolerating a diet. 4. Hypertension/hyperlipidemia/coronary artery disease/legally blind Complicates care, management, recovery and prognosis. Continue home cardiac medications as indicated. This note was generated with [employer] software. It may contain incorrect words, spelling, and punctuation that were not noted in checking the note before signing. Code Visit Inpatient E&M: 56716 Subs Hosp L2
[2019-06-01] MEDS: Insulin Lispro 100 UNIT/ML INSULN.PEN SC (08:05)
[2019-06-01] MEDS: guaiFENesin 1,200 MG Tablet 1200 MG PO (08:06)
[2019-06-01] MEDS: Aspirin 81 MG TAB.CHEW PO (08:09)
[2019-06-01] MEDS: Carvedilol 6.25 MG Tablet PO (08:09)
[2019-06-01] MEDS: Isosorbide Mononitrate 30 MG Tablet PO (08:09)
[2019-06-01] MEDS: Clopidogrel Bisulfate 75 MG Tablet PO (08:09)
[2019-06-01] MEDS: Pantoprazole Sodium 40 MG Tablet PO (08:09)
[2019-06-01] MEDS: Lisinopril 2.5 MG Tablet PO (08:10)
--- NOTE | 2019-06-01 10:20 | CASEMGMT ---
As per admitting RN, pt has LW/POA but not on chart, will bring in. JOSELYN Thompson
--- NOTE | 2019-06-01 11:28 | CASEMGMT ---
RN CM Assessment Presentation: Type 1 diabetes mellitus, suspected asp pneumonia. Intro role of CM and purpose of RN CM assessment to patient and her . Pt is blind, awake, alert and able to participate in assessment. Demographics, PCP and Pharmacy verified. Pt and state she is independent at home. Family assists and pt has canine assist dog. Denies needs on dc. PCP: Dr. Joni Campo Preferred [facility]acy: [facility] Insurance: [facility] Prescription Benefit: yes LNOK: , Prasanna Dang II Living Arrangements: Lives with . States she is independent. Has seeing eye assist dog at home. Transportation: drives pt or she uses [facility] transportation. HHC: none Patient DC goals: Home DC PLAN: Home today with family support. Crystal SNOWDEN RN ACM
--- NOTE | 2019-06-01 12:15 | PCM.DC ---
- Discharge Diagnoses Current Active Problems: Current Active and Chronic Problems (Last Reviewed 05/30/19 @ 10:08 by Porsha Rene DO) Acute respiratory failure (Acute) Aspiration pneumonia (Acute) Hypoglycemic event in diabetes (Acute) Metabolic acidosis (Acute) Chronic renal failure, stage 3 (moderate) (Chronic) Syncope and collapse (Acute) due to hypoglycemia You will use the following diet at home:: Calorie/Carbohydrate Controlled (specify 1200, 1400, etc), Cardiac Your food should be the consistency of: Regular Your liquids should be the consistency of: Regular/Thin Discharge Activity: - - Gradually return to normal activity Call your doctor if you observe: Fever of 101 or Higher, Shortness of breath, Dizziness, Fainting spells, Swelling in the ankles, Chest pain, - - Call your PCP if severe diarrhea ( > 5 stools a day), painful sores in the mouth, painful swallowing, rash or itching. Taking a probiotic such as Lactobacillus or Kefir can help with loose stools while taking antibiotics. Additional Instructions: 1. Because of the antibiotics you will need to use an alternate method of control for the next month. 2. You will need to take 10 days total of antibiotics. You will be on Augmentin 875 mg twice a day until gone. 3. I recommend you take the Tresiba in the AM and only take 30 units. 4. Tradjenta in the [place] literaure is contraindicated. In the [place] literature it is only relatively contraindicated and not absolutely contraindicated. You may want to discuss this with Dr. Campo. I will be sending him a copy of my discharge instructions and Discharge summary. 5. You should have a chest Xray in the next 4-6 weeks to document that the pneumonia has cleared Pending Tests on Discharge: final result on the blood cultures Allergies/Adverse Reactions: Allergies adhesive tape Allergy (Severe, Verified 01/27/19 21:37) Unknown Medications to take at Discharge Aspirin [Aspirin, Baby] 81 mg PO DAILY@0800 02/18/15 Colchicine 0.6 mg PO X1 PRN 02/18/15 Glucagon 0.5 mg IM X1 PRN 02/18/15 Grape Seed Extract [Grape Seed] 25 mg PO DAILY 02/18/15 Magnesium 500 mg PO DAILY 02/18/15 Norethindrone [Nor-Q-D] 1 tab PO DAILY 02/18/15 insulin aspart U-100 100 unit/mL subcutaneous solution See Rx Instructions SC TID ml 12/12/17 linagliptin 5 mg tablet 5 mg PO DAILY 12/12/17 clopidogrel 75 mg tablet 75 mg PO DAILY #90 tab 03/28/18 carvedilol 6.25 mg tablet 6.25 mg PO BID #180 tab 06/27/18 Cholecalciferol (VIT D3) [Vitamin D3] 1,000 unit PO DAILY 08/11/18 atorvastatin 80 mg tablet 80 mg PO QHS #90 tab 09/25/18 nitroglycerin 0.4 mg sublingual tablet 0.4 mg SUBLINGUAL Q5M PRN #25 tab 11/13/18 isosorbide mononitrate ER 30 mg tablet,extended release 24 hr 30 mg PO QAM 04/09/19 levothyroxine 125 mcg tablet 125 mcg PO DAILY 04/09/19 omeprazole 20 mg capsule,delayed release 20 mg PO .PRN cap 04/09/19 lisinopril 2.5 mg tablet 2.5 mg PO DAILY #90 tab 04/26/19 Amox/Clavulanate Tablet [Augmentin Tablet] 875 mg PO Q12H #14 tab 06/01/19 Guaifenesin [Mucinex] 1,200 mg PO BID #20 tab 06/01/19 Insulin Degludec [Tresiba Flextouch U-200] 30 unit SQ DAILY #0 06/01/19 Na Biphos/Potassium Phosphate [Neutra-Phos Packet] 1 packet PO TID #6 packet 06/01/19 The following prescriptions were given: Amox/Clavulanate Tablet [Augmentin Tablet] 875 mg PO Q12H #14 tab [facility] Guaifenesin [Mucinex] 1,200 mg PO BID #20 tab Transmission Status: Pending to [facility] Na Biphos/Potassium Phosphate [Neutra-Phos Packet] 1 packet PO TID #6 packet Transmission Status: Pending to [facility] Primary Care Physician: Joni Campo MD [Primary Care Provider] - Please follow up with your Primary Care Physician in: next week Test Results: Test results from this visit will be discussed in further detail at your follow-up appointment, if applicable. Proposed Discharge Date: 06/01/19
--- NOTE | 2019-06-01 12:25 | DS.PCM_ITS ---
Discharge Date and Diagnosis Date of Admission: 05/30/19 Date of Discharge: 06/01/19 - Primary Discharge Diagnosis Active and Suspected Problems (Last Reviewed 05/30/19 @ 10:08 by Porsha Rene DO) Syncope and collapse (Acute) due to hypoglycemia Acute respiratory failure with hypoxemia(Acute) Aspiration pneumonia (Acute) Hypoglycemic event in diabetes (Acute) Metabolic acidosis (Acute) - resolved Hypophosphatemia (Acute) - Secondary Discharge Diagnosis Chronic Problems (Last Reviewed 05/30/19 @ 10:08 by Porsha Rene DO) Chronic renal failure, stage 3 (moderate) (Chronic) Presence of stent in coronary artery (Chronic ~01/23/14) PTCA/MARCUS to mid RCA; angioplasty of prox PDA 01/23/[address] Glenn Merino at [facility] Atherosclerotic heart disease of [place] coronary artery without angina pectoris (Chronic) angioplasty to LAD; no stent @ [facility] 11/08/13; PTCA/MARCUS to mid RCA; angioplasty of prox PDA @ [facility] 01/23/14 ST elevation myocardial infarction (STEMI) of anterior wall (Chronic) Hypothyroidism (Chronic) Hyperlipidemia (Chronic) Controlled. No change. Tolerating statin well HTN (hypertension) (Chronic) BP 126/64 No change in regimen Diabetes type 1, controlled (Chronic) LVH with stage I diastolic dysfunction Hospital Course and Treatment Imaging Results: Clinical Impression(s) from Imaging Studies Brain CT 05/30/19 06:44 IMPRESSION: No acute intracranial abnormality. Minimal paranasal sinus mucosal thickening. Globes are diffusely high attenuation noted previously. Electronically Signed: Jay Dow MD at 7:43 EDT , Service support , Chest X-Ray 05/30/19 06:44 IMPRESSION: Mild diffuse interstitial lung prominence likely due to underlying edema. Electronically Signed: Harjinder Wright at 7:03 EDT Tel , Service support , Chest X-Ray 05/30/19 11:33 IMPRESSION: Status post right subclavian central venous catheter placement. Persistent bilateral infiltrates/edema which could be noncardiogenic. Electronically Signed: Jose Alberto Manriquez MD at 12:43 EDT Tel , Service support , Chest X-Ray 05/31/19 09:30 IMPRESSION: 1. Persistent bibasilar pneumonia, right greater than left. 2. No interval change when compared to 05/30/2019. Electronically Signed: Enio Brunson MD at 10:57 EDT , Service support , Laboratory Results - last 24 hr 05/31/19 05/31/19 05/31/19 12:13 16:39 21:32 POC Glucose 165 H 201 H 215 H 06/01/19 06/01/19 02:39 06:37 POC Glucose 211 H 156 H Microbiology 05/30/19 18:30 Urine, Catheterized Urine Culture - Preliminary Culture exhibits no growth. 05/30/19 13:15 Mucosa - Nasopharyngeal Respiratory Panel (PCR) - Final 05/30/19 18:30 Urine Catheter - Catheter Streptococcus pneumoniae Antigen (M - Final 05/30/19 18:30 Urine Catheter - Catheter Legionella Antigen - Final Dr. Juan Francisco Cortez-frog shaker/pulmonary medicine Operations: None Procedures: 2-D Echocardiogram - Interpretation Summary Moderate concentric left ventricular hypertrophy. The estimated ejection fraction is 75 %. Stage 1 diastolic dysfunction. Trivial tricuspid valve insufficiency. Right ventricular systolic pressure estimated to be 25 mmHg. Compared to echo report dated , LV function has remained the same, but RVSP has decreased from 40 to 25 mm Hg. Summary of Care Provided: The patient is a 48 year old F with a past medical history of type 1 diabetes mellitus since age 8, hyperlipidemia, coronary artery disease with history of PTCA to the LAD at [facility] on 11/08/2013 with no stent and PTCA/MARCUS to the mid RCA and angioplasty of the proximal PDA at [facility] on 01/23/2014, chronic renal failure stage III, hypothyroidism, hyp ertension, blindness related to diabetic retinopathy and obesity who presented to the ED at [facility] on 05/30/2019 after a syncopal event at home. Her awoke and when she was not in bed he found her lying face down by her computer and asking for help. She was not conscious. She had a bloody nose. 911 was called and when they arrive the BS was in the 30's. they could not obtain IV access and she was given Glucagon and transported to the ED. The BS in the ED at arrival was 56 and she was given D50W. Vital signs at arrival to the emergency department were temperature 91 ?F, pulse rate 97, respiratory rate 22 and she was 71% saturated on room air. She was placed on a nonrebreather and the pulse ox was initially 93% but then dropped to 85% and she was placed on BiPAP. White blood cell count was normal at 5.7 with a left shift. Hemoglobin was 14.8 and platelets were within normal limits. Serum bicarb is low at 19 and the chloride is elevated at 112. The BUN is 29 and the creatinine is 1.59 which is within her baseline. A total CK was mildly increased at 425. Troponin was less than 0.015. Chest x-ray shows pulmonary vascular congestion with increased interstitial markings in the right base which were suspected to be due to aspiration. She was admitted to the ICU on BIPAP and was started on Zosyn. Dr. Cortez was consulted to participate in management. She was maintained on BiPAP and kept n.p.o. initially. She was transition to a nasal cannula later in the day. The following morning she was on a 2 L nasal cannula and maintaining an appropriate oxygen saturation of 95 to 97%. She was transferred to the progressive care unit and maintained on Zosyn. On 06/01/2019 she was afebrile and pulse ox on room air was 98%. Pulse ox ambulating on room air was 97%. Blood sugars were adequately controlled. She was never able to produce a sputum. Urine culture is negative. Streptococcal and Legionella antigens in the urine were negative. The respiratory panel was negative. Cultures had no growth. She was discharged home on Augmentin 875 mg twice daily to complete 10 days of treatment for aspiration pneumonia. We will follow-up with Dr. Joni Campo in 1 week. PHYSICAL EXAM: GENERAL: alert, oriented X 3, Cooperative, NAD ORAL: moist mucosa, no mucosal lesions NECK: No JVD, supple, trachea midline LUNGS: CTA, symmetric chest expansion, not tachypnea, no conversational dyspnea, no accessory muscle use, diminished HEART: RRR, Normal S1 and S2, no rub, no gallop ABDOMEN: soft, NT, ND, BS present, no guarding with palpation EXTREMITIES: no edema, no cyanosis, no calf tenderness SKIN: No rashes, no breakdown NEUROLOGIC: no focal neurologic deficits PSYCH: appropriate, normal affect, pleasant This note was generated with [employer] dictation software. It may contain incorrect words, spelling, and punctuation that were not noted in checking the note before signing. - Physical Exam Vital Signs Temp Pulse Resp BP Pulse Ox 98.3 F 85 18 164/68 H 98 06/01/19 07:59 06/01/19 10:42 06/01/19 07:59 06/01/19 07:59 06/01/19 09:20 Oxygen Flow Rate (L/min) 2 Oxygen Delivery Method Room Air Weight: 207 lb 3.2 oz Body Mass Index (BMI) 29.3 Finger Stick Blood Glucose 57 Intake and Output for Last 24 Hours 05/30/19 05/31/19 06/01/19 23:59 23:59 23:59 Intake Total 1016 / 2360 2043 / 2043 392 / 392 Output Total 700 / 700 300 / 300 Balance 316 / 1660 1743 / 1743 392 / 392 Microbiology Past 72 Hours 05/30/19 18:30 Urine Culture - Preliminary Urine, Catheterized Culture exhibits no growth. 05/30/19 13:15 Respiratory Panel (PCR) - Final Mucosa - Nasopharyngeal 05/30/19 18:30 Streptococcus pneumoniae Antigen (M - Final Urine Catheter - Catheter 05/30/19 18:30 Legionella Antigen - Final Urine Catheter - Catheter POC Glucose 06/01/19 06/01/19 05/31/19 06:37 02:39 21:32 POC Glucose 156 H 211 H 215 H 05/31/19 05/31/19 16:39 12:13 POC Glucose 201 H 165 H Discharge Activity: - - Gradually return to normal activity Call your doctor if you observe: Fever of 101 or Higher, Shortness of breath, Dizziness, Fainting spells, Swelling in the ankles, Chest pain, - - Call your PCP if severe diarrhea ( > 5 stools a day), painful sores in the mouth, painful swallowing, rash or itching. Taking a probiotic such as Lactobacillus or Kefir can help with loose stools while taking antibiotics. Home Medications: Medications to take at Discharge Aspirin [Aspirin, Baby] 81 mg PO DAILY@0800 02/18/15 Colchicine 0.6 mg PO X1 PRN 02/18/15 Glucagon 0.5 mg IM X1 PRN 02/18/15 Grape Seed Extract [Grape Seed] 25 mg PO DAILY 02/18/15 Magnesium 500 mg PO DAILY 02/18/15 Norethindrone [Nor-Q-D] 1 tab PO DAILY 02/18/15 insulin aspart U-100 100 unit/mL subcutaneous solution See Rx Instructions SC TID ml 12/12/17 linagliptin 5 mg tablet 5 mg PO DAILY 12/12/17 clopidogrel 75 mg tablet 75 mg PO DAILY #90 tab 03/28/18 carvedilol 6.25 mg tablet 6.25 mg PO BID #180 tab 06/27/18 Cholecalciferol (VIT D3) [Vitamin D3] 1,000 unit PO DAILY 08/11/18 atorvastatin 80 mg tablet 80 mg PO QHS #90 tab 09/25/18 nitroglycerin 0.4 mg sublingual tablet 0.4 mg SUBLINGUAL Q5M PRN #25 tab 11/13/18 isosorbide mononitrate ER 30 mg tablet,extended release 24 hr 30 mg PO QAM 04/09/19 levothyroxine 125 mcg tablet 125 mcg PO DAILY 04/09/19 omeprazole 20 mg capsule,delayed release 20 mg PO .PRN cap 04/09/19 lisinopril 2.5 mg tablet 2.5 mg PO DAILY #90 tab 04/26/19 Amox/Clavulanate Tablet [Augmentin Tablet] 875 mg PO Q12H #14 tab 06/01/19 Guaifenesin [Mucinex] 1,200 mg PO BID #20 tab 06/01/19 Insulin Degludec [Tresiba Flextouch U-200] 30 unit SQ DAILY #0 06/01/19 Na Biphos/Potassium Phosphate [Neutra-Phos Packet] 1 packet PO TID #6 packet 06/01/19 Following Prescrptions Were Given to Patient: Amox/Clavulanate Tablet [Augmentin Tablet] 875 mg PO Q12H #14 tab Transmission Status: Received by [facility] Guaifenesin [Mucinex] 1,200 mg PO BID #20 tab Transmission Status: Received by [facility] Na Biphos/Potassium Phosphate [Neutra-Phos Packet] 1 packet PO TID #6 packet Transmission Status: Received by [facility] 1811 Primary Care Physician: Joni Campo MD [Primary Care Provider] - Please follow up with your Primary Care Physician in: next week Disposition: Home Minutes spent on discharge:: 30 Patient Condition:: Good Medical Necessity - Tobacco Use Smoking Status: Never smoker Tobacco Use: Non-smoker Meaningful Use Info Meaningful Use Diagnoses (Choose all that apply): None applicable Code Visit Inpatient E&M: 73015 Disch Hosp
--- NOTE | 2019-06-05 14:51 | CASEMGMT ---
HENOK JUAREZ DC PHONE CALL DC DATE: 06/01/19 DC Disposition: Home Diagnosis on Discharge: Pneumonia LACE/STRATA: 10/31 Intro role of CM to patient via phone. Pt had difficulty speaking due to laryngitis. HENOK JUAREZ reviewed symptoms of fever, difficulty breathing, increased cough to notify her PCP. Pt states she has appointment next Tuesday with her physician. Pt is taking Augmentin as prescribed. No further questions per pt. Crystal SNOWDEN RN ACM
== END 2019-06-01 12:55 | disposition home or self-care (01) | DRG 637 ==
LOC: ED 07:02 → ICU 07:45 → PCU 06-01 06:35
PROVIDERS: Internal Medicine Critical Care Medicine; Admitting Provider Internal Medicine; Emergency Provider Emergency Medicine; Family Provider Family Medicine; PCP Family Medicine; Visit Provider Internal Medicine
DX: E10.649 Type 1 diabetes mellitus with hypoglycemia without coma (principal); J96.01 Acute respiratory failure with hypoxia; J69.0 Pneumonitis due to inhalation of food and vomit; E87.2 Acidosis; G93.40 Encephalopathy, unspecified; N18.3 Chronic kidney disease, stage 3 (moderate); E10.22 Type 1 diabetes mellitus with diabetic chronic kidney disease; I25.10 Atherosclerotic heart disease of native coronary artery without angina pectoris; H54.8 Legal blindness, as defined in USA; R68.0 Hypothermia, not associated with low environmental temperature; R55 Syncope and collapse; E83.39 Other disorders of phosphorus metabolism; Z79.4 Long term (current) use of insulin; Z95.5 Presence of coronary angioplasty implant and graft; E03.9 Hypothyroidism, unspecified; I12.9 Hypertensive chronic kidney disease with stage 1 through stage 4 chronic kidney disease, or unspecified chronic kidney disease; E78.5 Hyperlipidemia, unspecified
CPT/HCPCS: 36415; 36600; 70450; 71045; 71046; 80048; 80076; 81001; 82550; 82803; 82962; 83036; 83605; 83735; 83880; 84100; 84439; 84484; 85025; 85610; 85730; 87040; 87086; 87449; 87633; 87641; 93005; 93306; 94002; 97161; 97166; 99285; J7030; A4216; J0295; J1610; J2405

== ENCOUNTER → 2019-06-06 16:06 | Outpatient (CLI) | payer MEDICARE, SELFPAY ==
[2019-04-09 15:58] VITALS: BMI 29.7
[2019-05-30 12:40] VITALS: BMI 29.3
--- NOTE | 2019-06-06 16:09 | BI_ITS ---
MAMMOGRAPHY - BILATERAL SCREENING REASON FOR EXAM: Female, 48 years old. Routine annual screening examination. PERTINENT HISTORY: Non-contributory. History of bilateral breast implants. TECHNIQUE: Digital bilateral breast oz (3D mammographic acquisition) in the CC and MLO projections. 2-D mediolateral oblique (MLO) and craniocaudad (CC) views of both breasts were obtained. CAD: Full Field Digital Mammography with Computer Added Detection was performed. COMPARISON: Comparison is made with prior study dated October 13, 2016 and January 30, 2013. FINDINGS: Breast Composition: The breasts are heterogeneously dense, which may obscure small masses. There are no dominant masses or suspicious calcifications. Stable appearance of the bilateral breast implants. Stable small bilateral axillary lymph nodes. No other significant abnormalities are identified. There has been no significant change since the prior study. BI/SCREEN MAMM (CAD) W/OZ BILAT IMPRESSION: Stable bilateral screening mammogram. Yearly follow-up mammogram recommended. (A) ASSESSMENT CATEGORY: BIRADS Category 2: Benign. A letter regarding these results will be sent to the patient by the facility within 30 days. Approximately 10% of breast cancers are not detected by mammography. A normal mammogram should not delay biopsy of a clinically suspicious abnormality. [id number] Electronically Signed: Akash Sarabia, at 8:52 EDT , Service support ,
== END ==
PROVIDERS: Family Provider Family Medicine; PCP Family Medicine; Referring Provider Obstetrics & Gynecology; Visit Provider Obstetrics & Gynecology
DX: Z12.31 Encounter for screening mammogram for malignant neoplasm of breast (principal)
CPT/HCPCS: 77063; 77067

== ENCOUNTER 2019-09-24 18:00 | Outpatient (RCR) | payer MEDICARE, SELFPAY ==
[2019-05-30 12:40] VITALS: BMI 29.3
--- NOTE | 2019-09-04 08:45 | HP.OTEVAL_ITS ---
Patient's Visit Information LAURA FIGUEROA is a 48 year old F, referred to Occupational Therapy by Joni Campo MD, with a diagnosis of bilateral trigger fingers 4th digits. Date of Evaluation: 09/03/19 Occupational Therapist: Marisabel Laura, OTR/Keyla, CHT - Subjective Subjective: This 48 year old female was seen for OT eval with dx of bilateral 4th trigger fingers. pt states it has been going on for about 8 weeks and feels it is moving to MF of left hand. 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 pt states she stops every 4 hours to move and stretch. pt states the trigger fingers are not painful just limiting with her work and ADLs - ROM ROM Comments: pt demo ROM on digits WNL. pt demo with postive triggering on left RF while with therapist today - Strength Benefit Authorizer: right 55# left 47# Lateral Pinch: right 12# left 10# Tripod Pinch: Not tested Strength Comments: strength is good - Goals Goal:: pt will report she has returned to ind. and no compensitory stacia. with typing and other ADls by d/c Goal:: pt will demo the ability to form bilateral composite fists for ADLs and IADLs with no trigger symptoms by D/C - Rehabilitation General Assessment: This 48 year old female is demo with positive tirgger. PT would benefit from skilled OT services 1-2 x week for 4 weeks to return pt to PLOF. Today therapist ed. pt on mechanics of trigger finger, ergonomic position with desk top work, posible use of orthosis to limit triggering. pt demo understanding and agree to POC. Rehabilitation Potential: Good - Anticipated Interventions Anticipated Interventions: Triggerpoint Release, Modalities, Joint Protection/Energy Conservation, Ergonomic Education - Visit Plan Frequency: 1-2x /Week Duration: 4 Weeks General Plan: use of k-tape, trigger point release to bilateral volar and dorsal foreams- therapist use of US at 50% 1.2 3.3 mhz over A1 pully of right and left RF and MF TEXT: Thank you for the opportunity to evaluate your patient. For Medicare and Medicare HMO plans, please review the plan of care and approve it. It will need to be FAXED BACK to us at [phone] for Medicare purposes. Please let me know if there are questions or concerns regarding this plan of care. Physician Signature: Date:
--- NOTE | 2019-11-02 12:22 | HP.OT.NRP ---
HP - Discharge Summary - Patient Information LAURA FIGUEROA was seen in my office for initial evaluation on 09/03/19. The following Plan of Care was established for this patient: Initial Frequency: 1-2x /Week Initial Duration: 4 Weeks Plan: cont POC - Anticipated Interventions Anticipated Interventions: Triggerpoint Release, Modalities, Joint Protection/Energy Conservation, Ergonomic Education This patient was last seen in our office 09/24/19. Pertinent comments regarding their Occupational therapy will appear below: pt seen for 5 visits- she cancelled her last scheduled apt. pt has not rescheduled and due to time lapse in services pt D/C At this point I will be discontinuing this patient from occupational therapy. I would be happy to see this patient again in the future if found appropriate by the physician. Thank you! Marisabel Laura, OTR/L, CHT
== END 2019-09-24 19:00 | disposition home or self-care (01) ==
LOC: OT 18:00
PROVIDERS: Family Provider Family Medicine; PCP Family Medicine; Referring Provider Family Medicine; Visit Provider Family Medicine
DX: M65.342 Trigger finger, left ring finger (principal); M65.341 Trigger finger, right ring finger
CPT/HCPCS: 97035; 97110; 97140; 97166; 97530

== ENCOUNTER → 2020-01-08 10:15 | Outpatient (CLI) | payer MEDICARE, SELFPAY ==
[2019-12-03 16:18] VITALS: BMI 29.8
[2020-01-08 13:03] LABS: Absolute Lymphocyte Count 1.96 X10^3/uL (0.83-4.51); Absolute Neutrophil Count 5.1 X10^3/uL (2.0-7.7); Basophil% 1.3 % (0-1); Eosinophil# 0.15 X10^3/uL; Eosinophils% 1.9 % (0-5); Hematocrit 33.2 % (37-47); Hemoglobin 10.4 g/dL (12.0-15.0); Lymphocyte # 1.96 X10^3/ul (4.0); Lymphocyte % 24.5 % (19-41); Mean Corp Hgb Conc 31.3 g/dL (32-36); Mean Corpuscular Hgb 26.4 pg (27.0-32.0); Mean Corpuscular Volume 84.3 fL (81-99); Monocyte# 0.66 X10^3/uL; Monocyte% 8.3 % (0-10); NRBC Flagged by Analyzer 0 % (0-5); Neutrophil % 63.6 % (47-70); Platelet Count 280 K/mm3 (150-450); RBC Distribution Width CV 13.6 % (11.6-14.6); Red Blood Count 3.94 M/mm3 (4.2-5.4)
[2020-01-08 13:45] LABS: Cholesterol 111 mg/dL (200); High Density Lipoprotein 43 mg/dL; Triglycerides 51 mg/dL; Very Low Density Lipoprotein 10 mg/dL (5-40)
[2020-01-08 14:14] LABS: ALB/GLOB Ratio 1.2 RATIO (0.9-2.4); AST(SGOT) 16 U/L (15-37); Alanine Aminotransfer ALT/SGPT 20 U/L (13-56); Albumin, Serum 3.6 g/dL (3.2-5.0); Alkaline Phosphatase 59 U/L (45-117); BUN 30 mg/dL (7-18); BUN/Creat Ratio 15.1 RATIO (10-20); Calcium,Total 8.7 mg/dL (8.5-10.1); Creatinine, Serum 1.99 mg/dL (0.55-1.02); EST Glomerular Filtration Rate 28 mL/min (>60); Est Glom Filt Rate - Afr Amer 34 mL/min (>60); Globulin 3.1 g/dL (2.2-4.2); Glucose 34 mg/dL (74-106); Protein, Total 6.7 g/dL (6.4-8.2)
[2020-01-08 14:15] LABS: Anion Gap 4 (5-15); Bilirubin, Direct 0.13 mg/dL (0.00-0.30); Chloride 110 mmol/L (98-107); Free T3 1.8 pg/mL (2.18-3.98); Potassium 4.3 mmol/L (3.5-5.1); Sodium Level 140 mmol/L (136-145); T4 Free Direct 1.46 ng/dL (0.76-1.46); Thyroid Stim Hormone (TSH) 0.34 uIU/mL (0.358-3.74)
== END ==
PROVIDERS: Internal Medicine Endocrinology, Diabetes & Metabolism; PCP Family Medicine; Referring Provider Family Medicine; Visit Provider Family Medicine
DX: E03.9 Hypothyroidism, unspecified (principal); E11.65 Type 2 diabetes mellitus with hyperglycemia; I25.2 Old myocardial infarction
CPT/HCPCS: 36415; 80053; 80061; 82248; 84439; 84443; 84481; 85025

== ENCOUNTER → 2020-01-31 15:46 | Outpatient (CLI) | payer MEDICARE, MEDICAID, SELFPAY ==
[2019-12-03 16:18] VITALS: BMI 29.8
--- NOTE | 2020-01-31 15:53 | RAD_ITS ---
STUDY: X-RAY - LEFT FOOT CLINICAL: Female, 49 years old. FALL, LATERAL PAIN TECHNIQUE: 3 view(s) of the foot. COMPARISON: None. FINDINGS: Normal talus, calcaneus, and tarsal bones. Minimal plantar spur of the calcaneus. Normal visualized subtalar, talonavicular, calcaneocuboid, tarsal and tarsometatarsal articulations. Normal metatarsi. There is degenerative arthrosis of the metatarsophalangeal joint of the hallux . Normal tibial and fibular sesamoid bones. Normal interphalangeal joint of the great toe. Normal phalanges of the great toe. Normal second through fifth metatarsophalangeal joints. Normal interphalangeal joints and phalanges of the lesser toes. The soft tissue structures are unremarkable. RAD/Foot min 3 Views IMPRESSION: Negative for fracture or dislocation. Mild degenerative narrowing of the first metatarsophalangeal joint. Minimal plantar spur of the calcaneus. Electronically Signed: Leena Cabrera MD at 16:15 EST , Service support ,
== END ==
PROVIDERS: PCP Family Medicine; Referring Provider Family Medicine; Visit Provider Family Medicine
DX: M79.672 Pain in left foot (principal)
CPT/HCPCS: 73630

== ENCOUNTER → 2020-10-25 11:06 | Outpatient (CLI) | payer MEDICARE, MEDICAID, SELFPAY ==
[2020-07-08 16:08] VITALS: BMI 31.1
[2020-10-25 11:35] LABS: Absolute Lymphocyte Count 1.64 X10^3/uL (0.83-4.51); Absolute Neutrophil Count 4.1 X10^3/uL (2.0-7.7); Basophil# 0.09 X10^3/uL; Basophil% 1.3 % (0-1); Hematocrit 33.3 % (37-47); Hemoglobin 10.5 g/dL (12.0-15.0); Lymphocyte # 1.64 X10^3/ul (4.0); Lymphocyte % 24.4 % (19-41); Mean Corp Hgb Conc 31.5 g/dL (32-36); Mean Corpuscular Hgb 27.1 pg (27.0-32.0); Mean Corpuscular Volume 85.8 fL (81-99); Mean Platelet Vol. 11.3 fl (6.2-12.0); Monocyte# 0.61 X10^3/uL; Monocyte% 9.1 % (0-10); NRBC Flagged by Analyzer 0 % (0-5); Neutrophil # 4.14 X10^3/uL (2.7-7.7); Neutrophil % 61.8 % (47-70); Platelet Count 315 K/mm3 (150-450); RBC Distribution Width CV 13.2 % (11.6-14.6); Red Blood Count 3.88 M/mm3 (4.2-5.4); White Blood Count 6.7 K/mm3 (4.4-11.0)
[2020-10-25 12:10] LABS: Vitamin D,25 Hydroxy 69.6 ng/mL
[2020-10-25 12:13] LABS: ALB/GLOB Ratio 1.2 RATIO (0.9-2.4); AST(SGOT) 10 U/L (15-37); Alanine Aminotransfer ALT/SGPT 16 U/L (13-56); Albumin, Serum 3.6 g/dL (3.2-5.0); Alkaline Phosphatase 68 U/L (45-117); Anion Gap 8 (5-15); BUN 31 mg/dL (7-18); BUN/Creat Ratio 18.2 RATIO (10-20); Bilirubin, Direct 0.11 mg/dL (0.00-0.30); Calcium,Total 8.8 mg/dL (8.5-10.1); Chloride 111 mmol/L (98-107); Cholesterol 151 mg/dL (200); EST Glomerular Filtration Rate 34 mL/min (>60); Est Glom Filt Rate - Afr Amer 41 mL/min (>60); Globulin 3.1 g/dL (2.2-4.2); Glucose 47 mg/dL (74-106); High Density Lipoprotein 59 mg/dL; Potassium 4.4 mmol/L (3.5-5.1); Protein, Total 6.7 g/dL (6.4-8.2); Sodium Level 143 mmol/L (136-145); T4 Free Direct 1.34 ng/dL (0.76-1.46); Thyroid Stim Hormone (TSH) 0.54 uIU/mL (0.358-3.74); Triglycerides 51 mg/dL; Very Low Density Lipoprotein 10 mg/dL (5-40)
[2020-10-25 12:22] LABS: Microalbumin:Creatinine Ratio 86.2 mg/g CRE (<30 mg/g CRE)
== END ==
PROVIDERS: PCP Family Medicine; Referring Provider Internal Medicine Cardiovascular Disease; Visit Provider Internal Medicine Cardiovascular Disease
DX: I25.10 Atherosclerotic heart disease of native coronary artery without angina pectoris (principal); E10.319 Type 1 diabetes mellitus with unspecified diabetic retinopathy without macular edema; N18.30 Chronic kidney disease, stage 3 unspecified
CPT/HCPCS: 80053; 80061; 82043; 82248; 82306; 82570; 83735; 84439; 84443; 85025

== ENCOUNTER 2021-01-29 18:00 | Outpatient (RCR) | payer MEDICARE, SELFPAY ==
[2020-07-08 16:08] VITALS: BMI 31.1
--- NOTE | 2020-11-11 19:06 | HP.PTEVAL_ITS ---
Patient's Visit Information LAURA FIGUEROA is a 49 year old F referred to Physical Therapy by Dr. Joni Campo MD with a diagnosis of chronic LBP deconditioning. Date of Evaluation: 11/11/20 Physical Therapist: Joni Forrest, ARIADNET, OCS, CSCS - Visit Plan Frequency: 1x/Week Duration: 4-6 Weeks Plan: weekly for 60 minute visits x 3-6. Please start by teaching with Pics(for ). First visit: supermans, prone opp UE/LE, quadruped pointer dogs, briedges, bugs and Treadmill as patient has one at home. 2nd visit: rows, pull downs, side rows, planks, quad stretches. serrtus punches. 3rd visit: squats, RDL, shoulder press, chest press, heel raises - Subjective Have been getting back pain from shoulder blades down to butt muscles start hurting if walk too far such as at [employer]. Has not been out as much as prior to covid adn has put on weight. feels like she has gained weight and lost strength. Worse with mask on. Passed out 1.5 yrs ago from blood sugar episode and aspirated with pnumonia and has been SOB since that time with cold and heat effecting her. comfortable at rest immediately. Has to sit at [employer] or bend over and rest and take mask off to feel better. Sleep is OK. No UE or LE symptoms noted. Sees chiropractor for R hip pain a while ago. Stretches for this which has helped. 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 Most home activities are OK but carrying laundry upstairs or moving boxes sometimes hurt but mostly when out. 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 Also enjoys istening to vinyl records and goes for a drive taking a walk now and then. 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 - Pain back pain Pain Intensity (Out of 10): 1 Pain Intensity Range: 0, 7 Comment: R LBP currently - Objective Pt is blind and uses guide dog to get around. Posture is forward head and scapula. Walks I safely on firm flat surface without physical support. Has braces on B ankles for PFitis history. Tightness in gastroc soleus adn HS adn quads B. AROM LE WFL, strength LE 4- hips, 4 knee ext adn flexion and 4- ankles B. Sensation LE to gross lgiht touch is WFL. reflexes patella 2/3. - cervicala nd lumbar compression test. UE aROM WFL and strength at 3+ thorughout UE. 2/3 bi and tri reflexes and sensation WNL to gross light otuch. Cervical aROM 50 ext adn 55 rotation L and 45 R with some R neck pain at end range. Lumbar AROM is minlimited in ext with R anterior hip tightness. flexion is full, B SB is WFL. Strength in core 3+/5. - Goals Goal 1:: Walk through [employer] without needing rest. Goal Time Frame: 4-6 Weeks Goal 2:: Pt I appropriate HEP to minimize future problems. Goal Time Frame: 4-6 Weeks Goal 3:: Bck pain 1/10 at worst and 75% improved. Goal Time Frame: 4-6 Weeks - Rehabilitation Potential Physical Therapy Diagnosis: LBP and muscle deconditioning. Rehabilitation Potential: Fair - Anticipated Interventions Patient/Client Instruction: Educate patient on: Condition, Plan of Care For the Purpose of:: To decrease pain, To increase tolerance to activity/condition/position, To improve ability of physical actions for home/community/work/leisure, To improve gait and locomotor functions Therapeutic Exercise to Include: Strength training, Endurance training, Postural training, Flexibilty training, Passive ROM, Active ROM For the Purpose of:: To decrease pain, To improve muscle performance and motor function, To improve ability of physical actions for home/community/work/leisure Thank you for the opportunity to evaluate your patient. For Medicare and Medicare HMO plans, please review the plan of care and approve it. It will need to be FAXED BACK to us at [phone] for Medicare purposes. For Medicare only, by signing this I certify the plan of care. Please let me know if there are questions or concerns regarding this plan of care. Physician Signature: Date:
--- NOTE | 2021-01-01 18:48 | HP.PTREVAL ---
Dr. Joni Campo MD, It has been my pleasure to treat LAURA FIGUEROA over the last 5 visits for chronic LBP deconditioning. Please see the progress note below for an update on the physical therapy plan of care! Subjective: Walking easier. Back does hurt at times if walks a long way shopping alot. Getting better though. Pain in the last week has been OK, Up to 4/10 if overdoes it transiently. Doing all exercises 1-2x/day. Objective/Function: Full L/S ROM without pain today in fact felt good to patient. Balance with too much trunk movement can be off but no pain. walking well with guide dog adn without LOB. Overall moving more confidently. Feels like she cane continue from this point on her own. Plan Plan: f/u one month to progress ex as needed , prior if situation doesn't continue to improve. Fair prognosis to cotninue to progress toward goals. Goals Goal 1:: Walk through [employer] without needing rest. Goal Time Frame: 4-6 Weeks Goal Progress: met, still hurts Goal 2:: Pt I appropriate HEP to minimize future problems. Goal Time Frame: 4-6 Weeks Goal Progress: Goal Met Goal 3:: Bck pain 1/10 at worst and 75% improved. Goal Time Frame: 4-6 Weeks Goal Progress: part met. Anticipated Interventions Patient/Client Instruction: Educate patient on: Condition, Plan of Care For the Purpose of:: To decrease pain, To increase tolerance to activity/condition/position, To improve ability of physical actions for home/community/work/leisure, To improve gait and locomotor functions Therapeutic Exercise to Include: Strength training, Endurance training, Postural training, Flexibilty training, Passive ROM, Active ROM For the Purpose of:: To decrease pain, To improve muscle performance and motor function, To improve ability of physical actions for home/community/work/leisure Please do not hesitate to contact me at [phone] by phone or if you have questions or concerns regarding this new plan of care! Sincerely, Joni Forrest, DPT, OCS, CSCS
--- NOTE | 2021-01-29 18:43 | HP.PTDCSUM_ITS ---
It has been my pleasure to treat LAURA FIGUEROA referred by Dr. Joni Campo MD, with the diagnosis of chronic LBP deconditioning for a total of 6 visit(s). Discharge Date: 01/29/21 Please see the following information for a summary of their discharge status. Subjective: Its been a month. I have gotten better. Tightness on R hip has returned laterally. It has returned in the last few days possibly due to sitting with feet behind her. Chirporactic loosened her up. Got exercises in regularly once per day. Walking at [employer] store a lot better. Activities are pretty normal. Hasn't been on TM yet as she has been busy. Sleep is OK, normal for her. back pain Pain Intensity (Out of 10): 0 % Improvement: 85 Objective/Function: tightness felt in anterior hips with lumbar extension, no back pain, other lumbar movements WNL today and no pain. Some clicking in R hip with felxion and feels tight. + PATI adn FADDIR. Pain and limited with IR R hip PROM, others WFL. Weakness in B hips 3+ with ocmpensation in ext adn abduction, 4- flexion. Walking well today and transfers bed I. Overall feeling better adn doing well. Goal 1:: Walk through [facility] without needing rest. Goal Progress: Goal Met Goal 2:: Pt I appropriate HEP to minimize future problems. Goal Progress: Goal Met Goal 3:: Bck pain 1/10 at worst and 75% improved. Goal Progress: MET Plan: d/c to HEP Discharge Comments: Pt to cotninue via HEP and will contact doctor if back pain returns or hip doesn't feel better. If there are questions or concerns regarding this patient's physical therapy, please feel free to call me at [phone]. Thank you for the referral of this patient. Sincerely, Joni Forrest, DPT, OCS, CSCS
== END 2021-01-29 19:00 | disposition home or self-care (01) ==
LOC: PT 18:00
PROVIDERS: PCP Family Medicine; Referring Provider Family Medicine; Visit Provider Family Medicine
DX: M54.5 Low back pain (principal); G89.29 Other chronic pain; H54.7 Unspecified visual loss; R53.81 Other malaise
CPT/HCPCS: 97110; 97162; 97164; 97530

== ENCOUNTER → 2021-05-12 17:40 | Outpatient (CLI) | payer MEDICARE, MEDICAID, SELFPAY ==
[2021-05-01 16:22] VITALS: BMI 31.9
[2021-05-12 18:28] LABS: Absolute Lymphocyte Count 2.17 X10^3/uL (0.83-4.51); Absolute Neutrophil Count 3.7 X10^3/uL (2.0-7.7); Basophil# 0.07 X10^3/uL; Eosinophil# 0.22 X10^3/uL; Eosinophils% 3.2 % (0-5); Hematocrit 32.1 % (37-47); Hemoglobin 9.7 g/dL (12.0-15.0); Lymphocyte # 2.17 X10^3/ul (0.83-4.51); Lymphocyte % 31.7 % (19-41); Mean Corp Hgb Conc 30.2 g/dL (32-36); Mean Corpuscular Hgb 24.9 pg (27.0-32.0); Mean Corpuscular Volume 82.5 fL (81-99); Mean Platelet Vol. 11.2 fl (6.2-12.0); Monocyte# 0.62 X10^3/uL; Monocyte% 9.1 % (0-10); NRBC Flagged by Analyzer 0 % (0-5); Neutrophil # 3.74 X10^3/uL (2.7-7.7); Neutrophil % 54.6 % (47-70); Platelet Count 327 K/mm3 (150-450); RBC Distribution Width CV 15.1 % (11.6-14.6); RBC Distribution Width SD 44.5 fl (35.1-43.9); Red Blood Count 3.89 M/mm3 (4.2-5.4); White Blood Count 6.9 K/mm3 (4.4-11.0)
[2021-05-12 18:52] LABS: Microalbumin:Creatinine Ratio 163.6 mg/g CRE (<30 mg/g CRE)
[2021-05-12 19:01] LABS: Vitamin D,25 Hydroxy 66.6 ng/mL
[2021-05-12 19:11] LABS: AST(SGOT) 17 U/L (15-37); Alanine Aminotransfer ALT/SGPT 18 U/L (13-56); Albumin, Serum 3.7 g/dL (3.2-5.0); Alkaline Phosphatase 60 U/L (45-117); Anion Gap 4 (5-15); BUN 26 mg/dL (7-18); BUN/Creat Ratio 14.2 RATIO (10-20); Calcium,Total 8.9 mg/dL (8.5-10.1); Chloride 110 mmol/L (98-107); Cholesterol 146 mg/dL (200); Creatinine, Serum 1.83 mg/dL (0.55-1.02); EST Glomerular Filtration Rate 31 mL/min (>60); Est Glom Filt Rate - Afr Amer 37 mL/min (>60); Globulin 3.6 g/dL (2.2-4.2); Glucose 50 mg/dL (74-106); High Density Lipoprotein 54 mg/dL; Potassium 4.6 mmol/L (3.5-5.1); Protein, Total 7.3 g/dL (6.4-8.2); Sodium Level 141 mmol/L (136-145); Thyroid Stim Hormone (TSH) 1.09 uIU/mL (0.358-3.74); Triglycerides 106 mg/dL; Very Low Density Lipoprotein 21 mg/dL (5-40)
== END ==
PROVIDERS: PCP Family Medicine; Referring Provider Family Medicine; Visit Provider Family Medicine
DX: E03.9 Hypothyroidism, unspecified (principal); E11.22 Type 2 diabetes mellitus with diabetic chronic kidney disease; I25.10 Atherosclerotic heart disease of native coronary artery without angina pectoris
CPT/HCPCS: 36415; 80053; 80061; 82043; 82306; 82570; 84443; 85025

== ENCOUNTER → 2021-05-25 17:00 | Outpatient (CLI) | payer MEDICARE, MEDICAID, SELFPAY ==
[2021-05-01 16:22] VITALS: BMI 31.9
[2021-05-29 09:03] LABS: HPV APTIMA, High Risk Negative (Negative); HPV Reflexed? YES, CHARGE PATIENT
== END ==
PROVIDERS: PCP Family Medicine; Visit Provider Obstetrics & Gynecology
DX: Z12.4 Encounter for screening for malignant neoplasm of cervix (principal)
CPT/HCPCS: 87624; 88175; G0145

== ENCOUNTER → 2021-06-09 16:16 | Outpatient (CLI) | payer MEDICARE, MEDICAID, SELFPAY ==
[2020-10-28 10:45] VITALS: BMI 31.8
[2021-05-01 16:22] VITALS: BMI 31.9
--- NOTE | 2021-06-09 16:19 | BI_ITS ---
MAMMOGRAPHY - BILATERAL SCREENING REASON FOR EXAM: Female, 50 years old. Routine annual screening examination. PERTINENT HISTORY: Non-contributory. Bilateral breast implants. TECHNIQUE: Digital bilateral breast oz (3D mammographic acquisition) in the CC and MLO projections. 2-D mediolateral oblique (MLO) and craniocaudad (CC) views of both breasts were obtained. CAD: Full Field Digital Mammography with Computer Added Detection was performed. COMPARISON: Comparison is made with prior study dated 06/06/2019 and 10/13/2016. FINDINGS: Breast Composition: The breasts are heterogeneously dense, which may obscure small masses. There are no dominant masses or suspicious calcifications. Bilateral breast implants are once again seen. Small lymph nodes are seen in both axilla. No other significant abnormalities are identified. There has been no significant change since the prior study. BI/SCRN MAMM (CAD)W/OZ BILAT IMPRESSION: Stable bilateral screening mammogram. Yearly follow-up mammogram recommended. (A) ASSESSMENT CATEGORY: BIRADS Category 2: Benign. A letter regarding these results will be sent to the patient by the facility within 30 days. Approximately 10% of breast cancers are not detected by mammography. A normal mammogram should not delay biopsy of a clinically suspicious abnormality. [id number] Electronically Signed: Akash Sarabia MD at 8:34 EDT , Service support ,
== END ==
PROVIDERS: PCP Family Medicine; Referring Provider Obstetrics & Gynecology; Visit Provider Obstetrics & Gynecology
DX: Z12.31 Encounter for screening mammogram for malignant neoplasm of breast (principal)
CPT/HCPCS: 77063; 77067

== ENCOUNTER → 2021-09-02 17:54 | Outpatient (CLI) | payer MEDICARE, OTHER, SELFPAY | PROVIDERS: PCP Family Medicine; Referring Provider Nurse Practitioner Family; Visit Provider Nurse Practitioner Family | DX: U07.1 COVID-19 (principal); Z20.822 Contact with and (suspected) exposure to COVID-19 | CPT/HCPCS: 87635; U0005; U0003 ==

== ENCOUNTER 2021-09-04 11:26 | Outpatient (CLI) | payer OTHER, MEDICARE, SELFPAY ==
[2021-09-04 11:41] VITALS: BP 123/56; PULSE 72; RESP 16; TEMP 37.4; O2SAT 97; BMI 29.5
[2021-09-04] MEDS: 0.9% Saline Lock 10 ML Syringe IV (11:51)
[2021-09-04 12:33] VITALS: BP 126/54; PULSE 72; RESP 16; TEMP 37.7; O2SAT 97
[2021-09-04 13:33] VITALS: BP 124/54; PULSE 75; RESP 16; TEMP 37.8; O2SAT 98
== END 2021-09-04 13:33 | disposition home or self-care (01) ==
LOC: MS3OUT 11:26 → MS3 11:27
PROVIDERS: PCP Family Medicine; Referring Provider Nurse Practitioner Adult Health; Visit Provider Nurse Practitioner Adult Health
DX: Z23 Encounter for immunization (principal); U07.1 COVID-19
CPT/HCPCS: J7050; M0243; A4216; Q0240

== ENCOUNTER → 2022-06-15 | Outpatient (CLI) | payer MEDICARE, SELFPAY ==
--- NOTE | 2022-06-15 15:03 | ECHOD_ITS ---
Reason For Study: HEART MURMUR Procedure This was a 2D Doppler, Color Flow transthoracic echocardiogram. The study was technically difficult. Patient refused definity. Exam performed in department. Left Ventricle Mild concentric left ventricular hypertrophy. Based upon the 2D echocardiographic images obtained there appears to be grossly normal left ventricular size, wall motion, and systolic function. The estimated ejection fraction is 65 %. Diastolic function is indeterminate. Right Ventricle Normal RV size. Normal systolic function. Atria The left atrium is mildly enlarged. Normal right atrium. No doppler evidence for ASD. Mitral Valve There is moderate mitral annular calcification. Extension of the mitral annular calcification on the base of the posterior mitral valve leaflet. Trivial mitral valve insufficiency. Tricuspid Valve Normal tricuspid valve. Trivial tricuspid valve insufficiency. Unable to estimate RV systolic pressure/pulmonary artery pressure due to technically difficult study. Aortic Valve Trisinus/trileaflet aortic valve. Mild focal aortic valve calcification. Pulmonic Valve The pulmonic valve is not well visualized. Great Vessels Normal sized aortic root. Pericardium/Pleural Trivial pericardial effusion. There are no echocardiographic indications of cardiac tamponade. MMode/2D Measurements & Calculations LVIDd: 4.3 cm IVSd: 1.3 cm Ao root diam: 3.1 cm LVIDs: 2.0 cm LVPWd: 1.3 cm FS: 54.1 % LAV(MOD-sp4): 38.4 ml LA A4 area: 16.3 cm2 LA dimension(2D): 4.3 cm RA A4 area: 15.7 cm2 Time Measurements MV dec time: 0.32 sec Doppler Measurements & Calculations MV E max chase: 105.7 cm/sec Lat Peak E' Chase: 6.7 cm/sec Med Peak E' Chase: 5.0 cm/sec MV A max chase: 92.7 cm/sec E/E' lat: 15.7 E/E' med: 21.0 MV E/A: 1.1 MV V2 max: 105.3 cm/sec MV dec slope: 337.3 cm/sec2 Ao V2 max: 200.2 cm/sec MV max P.4 mmHg Ao max P.0 mmHg MV V2 mean: 68.0 cm/sec Ao V2 mean: 149.1 cm/sec MV mean P.1 mmHg Ao mean P.0 mmHg MV V2 VTI: 38.3 cm Ao V2 VTI: 52.2 cm LV V1 max: 164.6 cm/sec PA V2 max: 109.0 cm/sec LV V1 max P.8 mmHg ECHO/Echo Complete Interpretation Summary The study was technically difficult. Based upon the 2D echocardiographic images obtained there appears to be grossly normal left ventricular size, wall motion, and systolic function. The estimated ejection fraction is 65 %. Mild concentric left ventricular hypertrophy. The left atrium is mildly enlarged. There is moderate mitral annular calcification. Extension of the mitral annular calcification on the base of the posterior mitr al valve leaflet. Trivial mitral valve insufficiency. Trivial tricuspid valve insufficiency. Mild focal aortic valve calcification. Trivial pericardial effusion. There are no echocardiographic indications of cardiac tamponade. Unable to estimate RV systolic pressure/pulmonary artery pressure due to techni jermaine difficult study. Diastolic function is indeterminate. Ordering Physician: Lizzie Vázquez Referring Physician: Lizzie Vázquez Performed By: Harriett Fontaine RCS
== END | disposition home or self-care (01) ==
PROVIDERS: PCP Family Medicine; Referring Provider Nurse Practitioner Gerontology; Visit Provider Nurse Practitioner Gerontology
DX: R01.1 Cardiac murmur, unspecified (principal)
CPT/HCPCS: 93306

== ENCOUNTER 2022-09-17 23:01 | Emergency (ER) | payer MEDICARE, MEDICAID, SELFPAY ==
[2022-09-17 23:03] VITALS: BP 180/88; PULSE 81; RESP 16; TEMP 36.4; O2SAT 95; BMI 33.0
[2022-09-17 23:07] VITALS: BP 180/88; PULSE 81; RESP 16; TEMP 36.4; O2SAT 95
--- NOTE | 2022-09-17 23:35 | RAD_ITS ---
EXAM: XR RIGHT WRIST COMPLETE, 3 OR MORE VIEWS CLINICAL INDICATION: injury TECHNIQUE: Frontal, lateral and oblique views of the right wrist. This report was created using [employer] report generation technology. COMPARISON: None. FINDINGS: BONES/JOINTS: Ulna minus deformity with no complications. No acute or healing fracture or malalignment. Small nonaggressive appearing cystic lesion at the base of the first metacarpal may be degenerative. SOFT TISSUES: Unremarkable. No soft tissue swelling or gas. No radiopaque foreign body. RAD/Wrist min 3 Views IMPRESSION: No acute or healing fracture or malalignment. Electronically Signed: Moiz Chris MD at 0:19 EDT ,
--- NOTE | 2022-09-17 23:35 | EX.ED.UPPERE ---
HPI History of Present Illness Chief Complaint: Upper Extremity Injury Informant: patient Narrative Narrative: Mechanical fall right wrist injury prior to arrival. Patient is blind. Walking around the house tripped over a wagon. No head injuries. On baby aspirin and Plavix history of coronary stent. Denies head injuries. History of scaphoid fracture 5 years ago with no surgical intervention. Prior similar symptoms: Yes PFSH PFSH Medical History Amputation of left middle finger Anxiety Asthma Atherosclerotic heart disease of [place] coronary artery without angina pectoris Blindness Diabetes type 1, controlled Diabetic retinopathy Difficulty balancing when standing Essential hypertension Family history of hypertension Hearing loss Hives Hypophosphatemia Hypothyroidism Kidney disease Mixed hyperlipidemia Old myocardial infarction Pericarditis Rash Retinopathy Rheumatoid arthritis Shoulder pain ST elevation myocardial infarction (STEMI) of anterior wall Home Medications insulin aspart U-100 100 unit/mL subcutaneous solution (Novolog U-100 Insulin aspart) See Rx Instructions subcut TID diabetes 12/12/17 [History Last Taken 05/29/19 11:30] levothyroxine 125 mcg tablet 125 mcg PO DAILY thryoid 04/09/19 [History Last Taken 05/29/19 08:00] pravastatin 80 mg tablet 80 mg PO DAILY #90 tabs 07/08/20 [Rx Last Taken Unknown] cholecalciferol (vitamin D3) 50 mcg (2,000 unit) capsule 50 mcg PO DAILY 10/31/20 [History Last Taken Unknown] omeprazole 20 mg capsule,delayed release 20 mg PO DAILY 10/31/20 [History Last Taken Unknown] ascorbic acid (vitamin C) 1,000 mg tablet 1 g PO DAILY 04/16/21 [History Last Taken Unknown] Novopen Echo (insulin admin supplies) #1 ea 05/01/21 [Rx Last Taken Unknown] pen needle, diabetic 32 gauge x 32 #50 ea 05/01/21 [History Last Taken Unknown] insulin degludec 100 unit/mL subcutaneous solution (Tresiba U-100 Insulin) 28 unit (0.28 mL) subcut DAILY #10 mL 06/24/21 [Rx Last Taken Unknown] nitroglycerin 0.4 mg sublingual tablet 0.4 mg sublingual Q5M PRN chest pain #25 tabs 10/27/21 [Rx Last Taken Unknown] carvedilol 6.25 mg tablet 6.25 mg PO BID Needs SCRIPTTALK LABELS: pt is blind #180 tabs 12/18/21 [Rx Last Taken Unknown] clopidogrel 75 mg tablet 75 mg PO DAILY NEEDS SCRIPTTALK LABELS: patient is blind #90 tabs 12/18/21 [Rx Last Taken Unknown] isosorbide mononitrate 30 mg tablet,extended release 24 hr 30 mg PO DAILY NEEDS SCRIPTTALK LABELS: patient is blind #90 tabs 12/18/21 [Rx Last Taken Unknown] lisinopril 2.5 mg tablet 2.5 mg PO DAILY NEEDS SCRIPTTALK LABELS: patient is blind #90 tabs 12/18/21 [Rx Last Taken Unknown] aspirin 81 mg tablet,delayed release (Adult Low Dose Aspirin) 81 mg PO DAILY 03/08/22 [History Last Taken Unknown] Allergy/AdvReac Type Severity Reaction Status Date / Time adhesive tape Allergy Severe Unknown Verified 04/28/22 16:23 latex Allergy Rash Verified 04/28/22 16:23 Family History Mother CAD (coronary artery disease) Hx of CABG Brother Hypertension Melanoma Father Atrial fibrillation Grandmother Lung cancer Brother Diabetes Other Cancer anesthesia allergy Surgical History H/O angioplasty H/O breast augmentation H/O vitrectomy H/O: History of cholecystectomy History of coronary angioplasty (~11/08/13) History of left heart catheterization History of tonsillectomy Hx of eye surgery Presence of stent in coronary artery (~01/23/14) S/P appendectomy Social History Smoking Status: Never smoker second hand exposure: No alcohol intake: current alcohol intake frequency: a few times a month substance use type: does not use caffeine: Yes Type: coffee Number of servings: 6 and tea Number of servings: 2 ROS ROS ED Constitutional Constitutional ED: Denies chills, fever(s) or sweats Eyes Eyes: Denies change in vision ENT ENT ED: Denies dysphagia or sore throat Cardiovascular Cardiovascular: Denies chest pain, leg edema, palpitations or racing heartbeat Respiratory/Chest Respiratory/Chest: Denies cough, dyspnea or dyspnea on exertion Gastrointestinal Gastrointestinal: Denies abdominal pain, diarrhea, nausea or vomiting Genitourinary Genitourinary ED: Denies dysuria, hematuria or urinary frequency Musculoskeletal Musculoskeletal: Reports extremity pain and other Details: Right wrist injury ; Denies back pain or neck pain Integumentary Denies rash or wounds Neurologic Neurologic: Denies headache(s), paresthesias or weakness EXAM Physical Exam Const Vital Signs: 09/17/22 23:03 09/17/22 23:07 Temperature 97.5 F L 97.5 F L Temperature Source Temporal Temporal Pulse Rate 81 81 Respiratory Rate 16 16 Blood Pressure 180/88 H 180/88 H Blood Pressure Mean 118 118 Pulse Ox 95 95 Oxygen Delivery Method Room Air Room Air Positive well nourished and well developed General Appearance ED: well developed and NAD HEENT Reports moist mucous membranes normocephalic and atraumatic Neck General: Negative for tenderness Chest Wall Chest: Negative for tenderness Resp normal respiratory effort and normal air movement Effort and Inspection: symmetric chest movement; Negative for respiratory distress Cardio regular rate, regular rhythm and no murmurs Peripheral Pulses: pulses 2+ throughout GI normal to inspection, nondistended, normoactive bowel sounds and non-tender Palpation: Negative for guarding or rebound tenderness present Back/Spine no CVA tenderness and no thoracic nor lumbar tenderness Extremity Extremity Narrative: Lower extremities negative logroll. Left upper extremity: Full range of motion without tenderness. Right upper extremity: No shoulder or elbow tenderness. There is no distal radius tenderness. Mild snuffbox tenderness, mild tenderness at the thenar eminence. No ecchymosis. Minimal swelling. Skin intact. Neuro vas intact distally. General Extremety ED: Negative for edema or tenderness General Extremity: Negative for edema Neuro oriented x3 and no sensory deficits noted Sensorium / Orientation: awake and alert Skin no rashes or lesions noted and no wounds MDM MDM MDM Narrative Medical decision making narrative: Patient declined any medications as she took Tylenol at home. 2 views right forearm,4 views right wrist reviewed by myself and read by radiology negative for any fracture or dislocation. Thumb spica splint provided for comfort. Outpatient follow-up for reimaging stiff pain persist after a week to rule out any occult fractures. All questions were answered. Discharge Plan Triage Chief Complaint: Upper Extremity Injury ED Provider: Tommie Mancini Dx/Rx/DC Orders Clinical Impression: Contusion of forearm, right, Contusion of right wrist, initial encounter Instructions: ED Contusion, Upper Extremity Prescriptions: No Action insulin aspart U-100 [Novolog U-100 Insulin aspart] 100 unit/mL solution See Rx Instructions SC TID Label Comments: per sliding scale SC TID Rx Instructions: per sliding scale SC TID, 1 unit per 5 carbs, breakfast and lunch only levothyroxine 125 mcg tablet 125 mcg PO DAILY Rx Instructions: thyroid omeprazole 20 mg capsule,delayed release(DR/EC) 20 mg PO DAILY cholecalciferol (vitamin D3) 50 mcg (2,000 unit) capsule 50 mcg PO DAILY ascorbic acid (vitamin C) 1,000 mg tablet 1 g PO DAILY (DME) pen needle, diabetic 32 gauge x /32 needle See Rx Instructions .ROUTE .MEDSUPPLY Qty: 50 Rx Instructions: As directed (DME) Novopen Echo Insulin Pen See Rx Instructions .ROUTE .MEDSUPPLY Qty: 1 0RF Rx Instructions: As directed nitroglycerin 0.4 mg tablet, sublingual 0.4 mg sublingual Q5M PRN (Reason: chest pain) Qty: 25 1RF Rx Instructions: do not exceed 3 doses per episode aspirin [Adult Low Dose Aspirin] 81 mg tablet,delayed release (DR/EC) 81 mg PO DAILY pravastatin 80 mg tablet 80 mg PO DAILY Qty: 90 3RF Tresiba U-100 Insulin 100 unit/mL solution 28 unit SC DAILY Qty: 10 6RF carvedilol 6.25 mg tablet 6.25 mg PO BID Qty: 180 3RF Rx Instructions: blood pressure clopidogrel 75 mg tablet 75 mg PO DAILY Qty: 90 3RF Rx Instructions: anti platelet for stent protection isosorbide mononitrate 30 mg tablet extended release 24 hr 30 mg PO DAILY Qty: 90 3RF lisinopril 2.5 mg tablet 2.5 mg PO DAILY Qty: 90 3RF Rx Instructions: blood pressure Primary Care Provider: Joni Campo Referrals: Joni Campo MD [Primary Care Provider] - 1 Week if not improving Activity Restrictions/Additional Instructions: X-ray right forearm right wrist negative for fracture. Use wrist splint for comfort. Use Tylenol as needed every 6 hours. If pain persist after a week follow-up with your doctor for re-x-ray for any potential occult fractures. Disposition Disposition: Home, Self Care Discharge Date/Time: 09/18/22 00:39
--- NOTE | 2022-09-17 23:39 | RAD_ITS ---
EXAM: XR RIGHT FOREARM, 2 VIEWS CLINICAL INDICATION: injury TECHNIQUE: Frontal and lateral views of the right forearm. This report was created using [employer] report generation technology. COMPARISON: None. FINDINGS: BONES/JOINTS: Unremarkable. No acute fracture. No dislocation. SOFT TISSUES: Unremarkable. RAD/Forearm 2 Views IMPRESSION: Negative right forearm x-rays. Electronically Signed: Moiz Chris MD at 0:17 EDT ,
[2022-09-18 00:36] VITALS: BP 184/79
== END 2022-09-18 00:39 | disposition home or self-care (01) ==
PROVIDERS: Emergency Provider Emergency Medicine; PCP Family Medicine; Visit Provider Emergency Medicine
DX: S50.11XA Contusion of right forearm, initial encounter (principal); E10.9 Type 1 diabetes mellitus without complications; S60.211A Contusion of right wrist, initial encounter; I25.10 Atherosclerotic heart disease of native coronary artery without angina pectoris; W01.0XXA Fall on same level from slipping, tripping and stumbling without subsequent striking against object, initial encounter; I10 Essential (primary) hypertension; I25.2 Old myocardial infarction; E03.9 Hypothyroidism, unspecified; E78.2 Mixed hyperlipidemia; Z82.49 Family history of ischemic heart disease and other diseases of the circulatory system; Z79.82 Long term (current) use of aspirin
CPT/HCPCS: 73090; 73110; 99283

== ENCOUNTER → 2022-09-22 | Outpatient (CLI) | payer MEDICARE, MEDICAID, SELFPAY ==
--- NOTE | 2022-09-22 09:43 | BD_ITS ---
STUDY: DUAL ENERGY X-RAY ABSORPTIOMETRY / DXA REASON FOR EXAM: Female, 51 years old. [id number] TECHNIQUE: Bone Mineral Density (BMD) measurements of lumbar spine and bilateral hips were obtained. COMPARISON: None. FINDINGS: Lumbar Spine (L1-L4): g/cm2 (1.049) / T-score (0.0) / Z-score (0.9) Findings are suggestive of normal bone density with a low fracture risk. Left Femur Total: g/cm2 (0.791) / T-score (-1.2) / Z-score (-0.7) Left Femoral Neck: g/cm2 (0.665) / T-score (-1.7) / Z-score (-0.7) Right Femur Total: g/cm2 (0.803) / T-score (-1.1) / Z-score (-0.6) Right Femoral Neck: g/cm2 (0.673) / T-score (-1.6) / Z-score (-0.7) BD/Dexa Bone Density Study IMPRESSION: The patient is considered osteopenic as outlined below according to World Luis Organization (WHO) criteria with a moderate fracture risk. Reference Information: The T-score is the number of standard deviations above or below the standard which is normal for young adults at their peak bone mineral density. The World Health Organization (WHO) interprets the T-scores as follows: Above -1 Normal bone density Between -1 and -2.5 Osteopenia Equal to / or below -2.5 Osteoporosis As a practical clinical guideline, osteopenia may be graded as follows: Mild -1 through -1.5 Moderate -1.6 through -2.0 Severe -2.1 through -2.4 The Z-score is the number of standard deviations above or below age-matched controls. A Z-score of less than -1.5 would be considered abnormal. References: 1. NIH Osteoporosis and Related Bone Diseases www osteo.org 2. International Society for Clinical Densitometry www iscd.org 3. National Osteoporosis Foundation www nof.org Electronically Signed: Akash Sarabia MD at 15:12 EDT ,
== END | disposition home or self-care (01) ==
LOC: OPBD 09:37
PROVIDERS: PCP Family Medicine; Visit Provider Family Medicine
DX: N95.9 Unspecified menopausal and perimenopausal disorder (principal); E11.22 Type 2 diabetes mellitus with diabetic chronic kidney disease
CPT/HCPCS: 77080

== ENCOUNTER → 2022-09-25 | Outpatient (CLI) | payer MEDICARE, MEDICAID, SELFPAY ==
[2022-09-25 10:04] LABS: Absolute Neutrophil Count 4.6 X10^3/uL (2.0-7.7); Basophil# 0.09 X10^3/uL; Basophil% 1.1 % (0-1); Eosinophil# 0.15 X10^3/uL; Eosinophils% 1.9 % (0-5); Hematocrit 39.4 % (37-47); Hemoglobin 12.9 g/dL (12.0-15.0); Lymphocyte % 30.1 % (19-41); Mean Corp Hgb Conc 32.7 g/dL (32-36); Mean Corpuscular Hgb 30.1 pg (27.0-32.0); Mean Corpuscular Volume 92.1 fL (81-99); Mean Platelet Vol. 10.8 fl (6.2-12.0); Monocyte# 0.69 X10^3/uL; Monocyte% 8.7 % (0-10); NRBC Flagged by Analyzer 0 % (0-5); Neutrophil # 4.63 X10^3/uL (2.7-7.7); Neutrophil % 58.1 % (47-70); Platelet Count 262 K/mm3 (150-450); RBC Distribution Width CV 12.8 % (11.6-14.6); RBC Distribution Width SD 43.4 fl (35.1-43.9); Red Blood Count 4.28 M/mm3 (4.2-5.4)
[2022-09-25 16:34] LABS: AST(SGOT) 12 U/L (15-37); Alanine Aminotransfer ALT/SGPT 19 U/L (13-56); Albumin, Serum 3.3 g/dL (3.2-5.0); Alkaline Phosphatase 69 U/L (45-117); Anion Gap 5 (5-15); BUN 29 mg/dL (7-18); BUN/Creat Ratio 15.4 RATIO (10-20); Chloride 107 mmol/L (98-107); Cholesterol 165 mg/dL (200); Creatinine, Serum 1.88 mg/dL (0.55-1.02); EST Glomerular Filtration Rate 30 mL/min (>60); Est Glom Filt Rate - Afr Amer 36 mL/min (>60); Ferritin 27 ng/mL (8-252); Globulin 3.2 g/dL (2.2-4.2); Glucose 210 mg/dL (74-106); High Density Lipoprotein 53 mg/dL; Iron Binding Capacity,Total 319 ug/dL (250-450); Potassium 4.4 mmol/L (3.5-5.1); Protein, Total 6.5 g/dL (6.4-8.2); Sodium Level 138 mmol/L (136-145); Triglycerides 79 mg/dL; Very Low Density Lipoprotein 16 mg/dL (5-40)
[2022-09-25 20:46] LABS: Hemoglobin A1c 7.2 % (3.8-5.6)
[2022-09-27 08:36] LABS: Vitamin B12 343 pg/mL (211-911)
== END | disposition home or self-care (01) ==
LOC: LAB 09:50
PROVIDERS: PCP Family Medicine; Visit Provider Family Medicine
DX: D64.9 Anemia, unspecified (principal); E11.22 Type 2 diabetes mellitus with diabetic chronic kidney disease
CPT/HCPCS: 36415; 80053; 80061; 82607; 82728; 82746; 83036; 83550; 85025

== ENCOUNTER 2022-11-16 03:32 | Emergency (ER) | payer MEDICARE, MEDICAID, SELFPAY ==
[2022-11-16 03:34] VITALS: BP 180/85; PULSE 98; RESP 19; TEMP 36.2; O2SAT 95; BMI 34.8
--- NOTE | 2022-11-16 03:40 | CT_ITS ---
EXAM: CT HEAD WITHOUT INTRAVENOUS CONTRAST CLINICAL INDICATION: seizure TECHNIQUE: Multiple axial images were obtained of the head without intravenous contrast. This CT exam was performed using one or more of the following dose reduction techniques: automated exposure control, adjustment of the mA and/or kV according to patient size, and/or use of iterative reconstruction technique. This report was created using [employer] report generation technology. RADIATION DOSE: CTDIvol = 44.99 mGy, DLP = 812.98 mGy-cm. COMPARISON: 05/30/2019. FINDINGS: BRAIN AND EXTRA-AXIAL SPACES: Mild generalized atrophy. Mild low density bilaterally in the deep white matter. No intra- or extra-axial hemorrhage. No evidence of acute infarct. No intracranial mass or mass effect. There is preservation of the li/white matter interface. Posterior fossa structures are unremarkable. No hydrocephalus. Basal cisterns are patent. BONES/JOINTS: Unremarkable. No discrete lytic or blastic abnormalities. SINUSES: Unremarkable as visualized. Clear. MASTOID AIR CELLS: Unremarkable. Clear. ORBITS: Dense globes bilaterally unchanged. CT/Brain/Head without Contrast IMPRESSION: 1. Mild generalized atrophy. Mild low density bilaterally in the deep white matter. This likely represents small vessel ischemic changes in the deep white matter. 2. Dense globes bilaterally unchanged. Electronically Signed: Shubham Durán MD at 4:30 EST ,
--- NOTE | 2022-11-16 03:43 | EKG12_ITS ---
Test Reason : Blood Pressure : / mmHG Vent. Rate : 093 BPM Atrial Rate : 093 BPM P-R Int : 162 ms QRS Dur : 096 ms QT Int : 372 ms P-R-T Axes : 047 -20 016 degrees QTc Int : 462 ms Normal sinus rhythm Poor R wave progression Cannot rule out Anterior infarct , age undetermined Abnormal ECG Confirmed by SALVADOR VINCENT, ARABELLA ([id number]), graphic editor MIGUEL HOLLIS ([id number]) on 11/17/2022 10:46:17 AM Referred By: Confirmed By:ARABELLA FRANCO MD
--- NOTE | 2022-11-16 03:46 | EDS_ITS ---
HPI History of Present Illness Chief Complaint: Hypoglycemia Narrative Narrative: 51-year-old female with history of insulin-dependent diabetes, hyperlipidemia, hypothyroidism, CKD stage III, CAD presenting confused. She states I do not know what happened. She states she has a history of hypoglycemic events and seizures. It was reported that EMS found her to have a blood sugar of 30. She was given D10. She does appear to be a little confused. I asked her when she took her last insulin dose and she said yesterday morning. She is unsure if she hit her head. She states she was otherwise well prior to going to bed. [facility] Medical History Amputation of left middle finger Anxiety Asthma Atherosclerotic heart disease of [place] coronary artery without angina pectoris Blindness Diabetes type 1, controlled Diabetic retinopathy Difficulty balancing when standing Essential hypertension Family history of hypertension Hearing loss Hives Hypophosphatemia Hypothyroidism Kidney disease Mixed hyperlipidemia Old myocardial infarction Pericarditis Rash Retinopathy Rheumatoid arthritis Shoulder pain ST elevation myocardial infarction (STEMI) of anterior wall Home Medications insulin aspart U-100 100 unit/mL subcutaneous solution (Novolog U-100 Insulin aspart) See Rx Instructions subcut TID diabetes 12/12/17 [History Last Taken 05/29/19 11:30] levothyroxine 125 mcg tablet 125 mcg PO DAILY thryoid 04/09/19 [History Last Taken 05/29/19 08:00] pravastatin 80 mg tablet 80 mg PO DAILY #90 tabs 07/08/20 [Rx Last Taken Unknown] cholecalciferol (vitamin D3) 50 mcg (2,000 unit) capsule 50 mcg PO DAILY 10/31/20 [History Last Taken Unknown] omeprazole 20 mg capsule,delayed release 20 mg PO DAILY 10/31/20 [History Last Taken Unknown] ascorbic acid (vitamin C) 1,000 mg tablet 1 g PO DAILY 04/16/21 [History Last Taken Unknown] Novopen Echo (insulin admin supplies) #1 ea 05/01/21 [Rx Last Taken Unknown] pen needle, diabetic 32 gauge x #50 ea 05/01/21 [History Last Taken Unknown] insulin degludec 100 unit/mL subcutaneous solution (Tresiba U-100 Insulin) 28 unit (0.28 mL) subcut DAILY #10 mL 06/24/21 [Rx Last Taken Unknown] nitroglycerin 0.4 mg sublingual tablet 0.4 mg sublingual Q5M PRN chest pain #25 tabs 10/27/21 [Rx Last Taken Unknown] carvedilol 6.25 mg tablet 6.25 mg PO BID Needs SCRIPTTALK LABELS: pt is blind #180 tabs 12/18/21 [Rx Last Taken Unknown] clopidogrel 75 mg tablet 75 mg PO DAILY NEEDS SCRIPTTALK LABELS: patient is blind #90 tabs 12/18/21 [Rx Last Taken Unknown] isosorbide mononitrate 30 mg tablet,extended release 24 hr 30 mg PO DAILY NEEDS SCRIPTTALK LABELS: patient is blind #90 tabs 12/18/21 [Rx Last Taken Unknown] lisinopril 2.5 mg tablet 2.5 mg PO DAILY NEEDS SCRIPTTALK LABELS: patient is blind #90 tabs 12/18/21 [Rx Last Taken Unknown] aspirin 81 mg tablet,delayed release (Adult Low Dose Aspirin) 81 mg PO DAILY 03/08/22 [History Last Taken Unknown] Allergy/AdvReac Type Severity Reaction Status Date / Time adhesive tape Allergy Severe Unknown Verified 11/16/22 03:39 latex Allergy Rash Verified 11/16/22 03:39 Family History Mother CAD (coronary artery disease) Hx of CABG Brother Hypertension Melanoma Father Atrial fibrillation Grandmother Lung cancer Brother Diabetes Other Cancer anesthesia allergy Surgical History H/O angioplasty H/O breast augmentation H/O vitrectomy H/O: History of cholecystectomy History of coronary angioplasty (~11/08/13) History of left heart catheterization History of tonsillectomy Hx of eye surgery Presence of stent in coronary artery (~01/23/14) S/P appendectomy Social History Smoking Status: Never smoker second hand exposure: No alcohol intake: current alcohol intake frequency: a few times a month substance use type: does not use caffeine: Yes Type: coffee Number of servings: 6 and tea Number of servings: 2 ROS ROS ED Constitutional Constitutional ED: Denies chills or fever(s) Eyes Eyes: Reports other Details: Patient is blind ENT ENT ED: Denies rhinorrhea or sore throat Cardiovascular Cardiovascular: Denies chest pain or palpitations Respiratory/Chest Respiratory/Chest: Denies cough or dyspnea Gastrointestinal Gastrointestinal: Denies abdominal pain, nausea or vomiting Genitourinary Genitourinary ED: Denies dysuria Musculoskeletal Musculoskeletal: Denies neck pain Integumentary Denies abscess Neurologic Neurologic: Reports headache(s); Denies paresthesias or weakness Psychiatric Psychiatric: Denies anxiety or depression EXAM Physical Exam Const Vital Signs: 11/16/22 03:34 11/16/22 03:34 Temperature 97.1 F L Temperature Source Temporal Pulse Rate 98 Respiratory Rate 19 H Respiratory Effort Normal Respiratory Pattern Normal Blood Pressure 180/85 H Blood Pressure Mean 116 Pulse Ox 95 Oxygen Delivery Method Room Air Positive well nourished General Appearance ED: NAD; Negative for pallor HEENT Reports moist mucous membranes trauma Eyes General Eye ED: Negative for pale conjunctiva or scleral icterus Neck no lymphadenopathy Chest Wall inspection of chest normal Resp normal respiratory effort and clear to auscultation bilaterally Auscultation: Negative for rales, rhonchi or wheezes Cardio regular rate and regular rhythm GI normal to inspection, nondistended, normoactive bowel sounds Neuro oriented x3 and CN's II-XII intact bilaterally Sensorium / Orientation: alert Motor Exam: general weakness Psych Psych Narrative: Awake, alert, slow to answer questions but oriented. Skin no rashes or lesions noted and no wounds General Skin Exam: Negative for jaundice or pallor MDM MDM MDM Narrative Medical decision making narrative: Scented with hypoglycemia and apparently had a seizure. She states she has a history of this in the past. Patient was given D10 by EMS. She is awake and alert and slow to respond. POC glucose 167. CBC within normal limits. CMP shows normal LFTs and creatinine is now 1.95 today. In August was 1.88. Patient was referred to a diazo technician by Dr. Mendez but has not made that appointment yet. It is upcoming. EKG on my interpretation shows a normal sinus rhythm with a ventricular rate of 93 bpm without sign of ischemic change or dysrhythmia. Chest x-ray my interpretation shows no acute cardiopulmonary process and radiology interpreted this and agrees. Patient is alert and awake now. She recalls that last night she went for a glass of wine and a wine bar. She came home and ate chicken and noodles. She states that she gave herself insulin but did not think it had digested yet and she thinks this is why she got hypoglycemic. In addition to this her glucose sensor was . It normally would give a warning to her, her , her son. This did not go off because the batteries were . That she has a replacement of this. CT brain was negative for acute intracranial findings today. I did obtain a urinalysis which shows positive nitrites, 100 leukocyte esterase, 10-25 white blood cells, 0-5 squamous epithelial cells, 2+ bacteria. Patient will be covered with Keflex. First dose was given in ER. Patient's will take her home. Return precautions discussed Impression: 1. Hypoglycemic seizure 2. Hypoglycemia 3. Altered mental status resolved, 4. CKD 5. UTI Lab Data Attestation: I reviewed the patient's lab results. Labs: Laboratory Results - last 24 hr 11/16/22 11/16/22 11/16/22 03:38 03:52 03:52 WBC 8.7 RBC 4.44 Hgb 13.1 Hct 40.4 MCV 91.0 MCH 29.5 MCHC 32.4 RDW Std Deviation 41.8 RDW Coeff of Lucero 12.8 Plt Count 273 MPV 10.7 Immature Gran % (Auto) 0.300 Neut % (Auto) 74.7 H Lymph % (Auto) 12.4 L Kinney % (Auto) 9.6 Eos % (Auto) 2.2 Baso % (Auto) 0.8 Absolute Neuts (auto) 6.5 Absolute Lymphs (auto) 1.08 Nucleated RBC % 0 Sodium 138 Potassium 3.9 Chloride 106 Carbon Dioxide 22.0 Anion Gap 10 BUN 37 H Creatinine 1.95 H Estim Creat Clear Calc 35.27 Est GFR (MDRD) Af Amer 35 L Est GFR (MDRD) Non-Af 29 L BUN/Creatinine Ratio 19.0 Glucose 138 H Calcium 9.1 Total Bilirubin 0.30 AST 17 ALT 20 Alkaline Phosphatase 54 Troponin I High Sens 10 Total Protein 6.9 Albumin 3.4 Globulin 3.5 Albumin/Globulin Ratio 1.0 Urine Color Urine Clarity Urine pH Ur Specific [place] Urine Protein Urine Glucose (UA) Urine Ketones Urine Occult Blood Urine Nitrite Urine Bilirubin Urine Urobilinogen Ur Leukocyte Esterase Urine RBC Urine WBC Ur Squamous Epith Cells Urine Bacteria Urine Mucus POC Glucose 167 H 11/16/22 11/16/22 04:35 05:21 WBC RBC Hgb Hct MCV MCH MCHC RDW Std Deviation RDW Coeff of Lucero Plt Count MPV Immature Gran % (Auto) Neut % (Auto) Lymph % (Auto) Kinney % (Auto) Eos % (Auto) Baso % (Auto) Absolute Neuts (auto) Absolute Lymphs (auto) Nucleated RBC % Sodium Potassium Chloride Carbon Dioxide Anion Gap BUN Creatinine Estim Creat Clear Calc Est GFR (MDRD) Af Amer Est GFR (MDRD) Non-Af BUN/Creatinine Ratio Glucose Calcium Total Bilirubin AST ALT Alkaline Phosphatase Troponin I High Sens Total Protein Albumin Globulin Albumin/Globulin Ratio Urine Color Yellow Urine Clarity Clear Urine pH 7.0 Ur Specific [place] 1.010 Urine Protein 500 H Urine Glucose (UA) Normal Urine Ketones Negative Urine Occult Blood 25 H Urine Nitrite Positive H Urine Bilirubin Negative Urine Urobilinogen Normal Ur Leukocyte Esterase 100 H Urine RBC 0-5 SEEN Urine WBC 10-25 SEEN Ur Squamous Epith Cells 0-5 SEEN Urine Bacteria 2+ Urine Mucus 0 SEEN POC Glucose 185 H Radiography Diagnostic Testing: Clinical Impression(s) from Imaging Studies Brain CT 11/16/22 03:40 IMPRESSION: 1. Mild generalized atrophy. Mild low density bilaterally in the deep white matter. This likely represents small vessel ischemic changes in the deep white matter. 2. Dense globes bilaterally unchanged. Electronically Signed: Shubham Durán MD at 4:30 EST , Chest X-Ray 11/16/22 04:05 IMPRESSION: 1. Low lung volumes limit the exam. No consolidations. 2. No acute cardiopulmonary abnormality. Electronically Signed: Shubham Durán MD at 4:20 EST , Discharge Plan Triage Chief Complaint: Hypoglycemia ED Provider: Isacc Yoo Dx/Rx/DC Orders Instructions: CKD Dc, ED Diabetic Insulin Reaction Prescriptions: No Action insulin aspart U-100 [Novolog U-100 Insulin aspart] 100 unit/mL solution See Rx Instructions SC TID Label Comments: per sliding scale SC TID Rx Instructions: per sliding scale SC TID, 1 unit per 5 carbs, breakfast and lunch only levothyroxine 125 mcg tablet 125 mcg PO DAILY Rx Instructions: thyroid omeprazole 20 mg capsule,delayed release(DR/EC) 20 mg PO DAILY cholecalciferol (vitamin D3) 50 mcg (2,000 unit) capsule 50 mcg PO DAILY ascorbic acid (vitamin C) 1,000 mg tablet 1 g PO DAILY (DME) pen needle, diabetic 32 gauge x needle See Rx Instructions .ROUTE .MEDSUPPLY Qty: 50 Rx Instructions: As directed (DME) Novopen Echo Insulin Pen See Rx Instructions .ROUTE .MEDSUPPLY Qty: 1 0RF Rx Instructions: As directed nitroglycerin 0.4 mg tablet, sublingual 0.4 mg sublingual Q5M PRN (Reason: chest pain) Qty: 25 1RF Rx Instructions: do not exceed 3 doses per episode aspirin [Adult Low Dose Aspirin] 81 mg tablet,delayed release (DR/EC) 81 mg PO DAILY pravastatin 80 mg tablet 80 mg PO DAILY Qty: 90 3RF Tresiba U-100 Insulin 100 unit/mL solution 28 unit SC DAILY Qty: 10 6RF carvedilol 6.25 mg tablet 6.25 mg PO BID Qty: 180 3RF Rx Instructions: blood pressure clopidogrel 75 mg tablet 75 mg PO DAILY Qty: 90 3RF Rx Instructions: anti platelet for stent protection isosorbide mononitrate 30 mg tablet extended release 24 hr 30 mg PO DAILY Qty: 90 3RF lisinopril 2.5 mg tablet 2.5 mg PO DAILY Qty: 90 3RF Rx Instructions: blood pressure Primary Care Provider: Joni Campo Referrals: Joni Campo MD [Primary Care Provider] - Danyel Mendez MD [Med Staff - Courtesy Staff] - As soon as possible Disposition Disposition: Home, Self Care
[2022-11-16] MEDS: 0.9% Normal Saline 1,000 ML 1000 ML IV (03:51)
[2022-11-16 03:55] LABS: Bedside Glucose 167 mg/dL (74-106)
[2022-11-16 03:58] LABS: Absolute Lymphocyte Count 1.08 X10^3/uL (0.83-4.51); Absolute Neutrophil Count 6.5 X10^3/uL (2.0-7.7); Basophil# 0.07 X10^3/uL; Basophil% 0.8 % (0-1); Eosinophil# 0.19 X10^3/uL; Eosinophils% 2.2 % (0-5); Hematocrit 40.4 % (37-47); Hemoglobin 13.1 g/dL (12.0-15.0); Lymphocyte # 1.08 X10^3/ul (0.83-4.51); Lymphocyte % 12.4 % (19-41); Mean Corp Hgb Conc 32.4 g/dL (32-36); Mean Corpuscular Hgb 29.5 pg (27.0-32.0); Mean Platelet Vol. 10.7 fl (6.2-12.0); Monocyte# 0.84 X10^3/uL; Monocyte% 9.6 % (0-10); NRBC Flagged by Analyzer 0 % (0-5); Neutrophil # 6.51 X10^3/uL (2.7-7.7); Neutrophil % 74.7 % (47-70); Platelet Count 273 K/mm3 (150-450); RBC Distribution Width CV 12.8 % (11.6-14.6); RBC Distribution Width SD 41.8 fl (35.1-43.9); Red Blood Count 4.44 M/mm3 (4.2-5.4); White Blood Count 8.7 K/mm3 (4.4-11.0)
--- NOTE | 2022-11-16 04:05 | RAD_ITS ---
EXAM: XR CHEST, 1 VIEW CLINICAL INDICATION: AMS TECHNIQUE: Frontal view of the chest. This report was created using [employer] report generation technology. COMPARISON: None. FINDINGS: LUNGS AND PLEURAL SPACES: Low lung volumes limit the exam. No consolidations. No pneumothorax. No effusion. HEART: Unremarkable. Cardiac silhouette not enlarged. MEDIASTINUM: Central airways and mediastinal contour are unremarkable. BONES/JOINTS: Unremarkable. SOFT TISSUES: Unremarkable. RAD/Chest 1 View (Portable) IMPRESSION: 1. Low lung volumes limit the exam. No consolidations. 2. No acute cardiopulmonary abnormality. Electronically Signed: Shubham Durán MD at 4:20 EST ,
[2022-11-16 04:16] LABS: AST(SGOT) 17 U/L (15-37); Alanine Aminotransfer ALT/SGPT 20 U/L (13-56); Albumin, Serum 3.4 g/dL (3.2-5.0); Alkaline Phosphatase 54 U/L (45-117); Anion Gap 10 (5-15); BUN 37 mg/dL (7-18); Calcium,Total 9.1 mg/dL (8.5-10.1); Chloride 106 mmol/L (98-107); Creatinine, Serum 1.95 mg/dL (0.55-1.02); EST Glomerular Filtration Rate 29 mL/min (>60); Est Glom Filt Rate - Afr Amer 35 mL/min (>60); Estimated Creatinine Clearance 35.27 ml/min; Globulin 3.5 g/dL (2.2-4.2); Glucose 138 mg/dL (74-106); Potassium 3.9 mmol/L (3.5-5.1); Protein, Total 6.9 g/dL (6.4-8.2); Sodium Level 138 mmol/L (136-145); Troponin-I HS 10 pg/mL (3.0-54.0)
[2022-11-16 04:39] LABS: Mucous, Urine 0 SEEN /hpf (<or=2+)
[2022-11-16 05:02] LABS: Color, Urine Yellow (Yellow); Glucose, Dipstick Normal (Normal); Ketone-Dipstick Negative (Negative); Leukocyte Esterase-Dipstick 100 /ul (Negative); Nitrite-Dipstick Positive (Negative); Occult Blood-Urine 25 /ul (Negative); Protein-Dipstick 500 mg/dl (Negative); Urine Bilirubin Dipstick Negative (Negative); Urine Clarity Clear (Clear); Urine Urobilinogen Normal (Normal)
[2022-11-16 05:09] LABS: Bacteria 2+ /hpf (None Seen); Red Blood Cells-Urine 0-5 SEEN /hpf (0-5); Squamous Epithelial Cells - UA 0-5 SEEN /hpf (5-10); White Blood Cells 10-25 SEEN /hpf (0-5)
[2022-11-16 05:40] LABS: Bedside Glucose 185 mg/dL (74-106)
[2022-11-16] MEDS: Cephalexin 250 MG Capsule 500 MG PO (06:17)
== END 2022-11-16 06:25 | disposition home or self-care (01) ==
PROVIDERS: Emergency Provider Student in an Organized Health Care Education/Training Program; PCP Family Medicine; Visit Provider Student in an Organized Health Care Education/Training Program
DX: E16.2 Hypoglycemia, unspecified (principal); N18.30 Chronic kidney disease, stage 3 unspecified; N39.0 Urinary tract infection, site not specified; I25.10 Atherosclerotic heart disease of native coronary artery without angina pectoris; I25.2 Old myocardial infarction; Z95.5 Presence of coronary angioplasty implant and graft
CPT/HCPCS: 70450; 71045; 80053; 81001; 82962; 84484; 85025; 93005; 96360; 99285; J7030; A4216

== ENCOUNTER → 2023-02-26 | Outpatient (CLI) | payer MEDICARE, SELFPAY ==
--- NOTE | 2023-02-26 08:00 | US_ITS ---
INDICATION: CKD3 EXAMINATION: Ultrasound US Kidney(s) complete (eg, kidneys and bladder) TECHNIQUE: Marino scale and color doppler images were obtained of the kidneys. COMPARISON: None. FINDINGS: RIGHT KIDNEY: 9.9 x 4.8 x 4.2 cm. The cortex is 13 mm. There is no hydronephrosis. No shadowing calculus and perinephric collection is demonstrated. There is a 9 mm lower pole cyst. LEFT KIDNEY: 10.5 x 4.7 x 5.1 cm. The cortex is 15 mm. There is no hydronephrosis. No shadowing calculus, focal lesion or perinephric collection is demonstrated. URINARY BLADDER: No acute abnormality. US/Kidney and Bladder IMPRESSION: Right renal cyst. Electronically Signed: Ifeanyi Perry DO at 19:51 EDT Reading Location ID and State: [facility] / [place] Tel [phone], Service support ,
== END | disposition home or self-care (01) ==
PROVIDERS: PCP Family Medicine; Visit Provider Internal Medicine Nephrology
DX: N18.32 Chronic kidney disease, stage 3b (principal)
CPT/HCPCS: 76770

== ENCOUNTER → 2023-03-05 | Outpatient (CLI) | payer MEDICARE, SELFPAY ==
[2023-03-05 12:30] LABS: Hematocrit 40.1 % (37-47); Hemoglobin 13.1 g/dL (12.0-15.0); Mean Corp Hgb Conc 32.7 g/dL (32-36); Mean Corpuscular Hgb 29.3 pg (27.0-32.0); Mean Corpuscular Volume 89.7 fL (81-99); Mean Platelet Vol. 11.2 fl (6.2-12.0); Platelet Count 268 K/mm3 (150-450); RBC Distribution Width CV 12.3 % (11.6-14.6); Red Blood Count 4.47 M/mm3 (4.2-5.4); White Blood Count 5.3 K/mm3 (4.4-11.0)
[2023-03-05 12:38] LABS: AST(SGOT) 17 U/L (15-37); Alanine Aminotransfer ALT/SGPT 18 U/L (13-56); Albumin, Serum 3.3 g/dL (3.2-5.0); Alkaline Phosphatase 64 U/L (45-117); Bilirubin, Direct 0.09 mg/dL (0.00-0.30); Cholesterol 200 mg/dL (200); Globulin 3.3 g/dL (2.2-4.2); High Density Lipoprotein 54 mg/dL; Protein, Total 6.6 g/dL (6.4-8.2); Triglycerides 72 mg/dL; Very Low Density Lipoprotein 14 mg/dL (5-40)
[2023-03-05 12:39] LABS: Albumin, Serum 3.4 g/dL (3.2-5.0); BUN 31 mg/dL (7-18); BUN/Creat Ratio 16.6 RATIO (10-20); Calcium,Total 9.3 mg/dL (8.5-10.1); Chloride 109 mmol/L (98-107); Creatinine, Serum 1.87 mg/dL (0.55-1.02); EST Glomerular Filtration Rate 30 mL/min (>60); Est Glom Filt Rate - Afr Amer 36 mL/min (>60); Glucose 111 mg/dL (74-106); Phosphorus 4.3 mg/dL (2.5-4.9); Sodium Level 138 mmol/L (136-145)
[2023-03-05 12:41] LABS: Color, Urine Yellow (Yellow); Glucose, Dipstick Normal (Normal); Ketone-Dipstick Negative (Negative); Leukocyte Esterase-Dipstick 500 /ul (Negative); Nitrite-Dipstick Negative (Negative); Occult Blood-Urine 10 /ul (Negative); Protein-Dipstick 100 mg/dl (Negative); Specific Gravity, Urine 1.015 (1.002-1.030); Urine Bilirubin Dipstick Negative (Negative); Urine Clarity Clear (Clear); Urine Urobilinogen Normal (Normal)
[2023-03-05 13:07] LABS: Protein, Urine (Random) 47.5 mg/dL (<11.9); Protein:Creat Ratio 275 mg/g CRE (0-200)
[2023-03-07 15:08] LABS: Cytoplasmic Ab (C-ANCA) <1:20 titer (Neg:<1:20); Immunoglobulin A 188 mg/dL (87-352); Immunoglobulin G 1085 mg/dL (586-1602); Immunoglobulin M 32 mg/dL (26-217); PROEL- A/G Ratio 1.2 (0.7-1.7); PROEL- Albumin 3.6 g/dL (2.9-4.4); PROEL- Alpha-1 Globulin 0.2 g/dL (0.0-0.4); PROEL- Alpha-2 Globulin 0.6 g/dL (0.4-1.0); PROEL- Beta Globulin 0.9 g/dL (0.7-1.3); PROEL- Globulin, Total 2.9 g/dL (2.2-3.9); PROEL- TOTAL PROTEIN 6.5 g/dL (6.0-8.5)
[2023-03-07 15:41] LABS: Perinuclear Ab (P-ANCA) <1:20 titer (Neg:<1:20)
== END | disposition home or self-care (01) ==
LOC: LAB 11:24
PROVIDERS: PCP Family Medicine; Referring Provider Internal Medicine Cardiovascular Disease; Visit Provider Internal Medicine Nephrology
DX: N18.32 Chronic kidney disease, stage 3b (principal); E78.2 Mixed hyperlipidemia
CPT/HCPCS: 80061; 80069; 80076; 81002; 82570; 82784; 84156; 84165; 85027; 86256; 86334

== ENCOUNTER → 2023-07-02 | Outpatient (CLI) | payer MEDICARE, SELFPAY ==
[2023-07-02 11:10] LABS: Absolute Lymphocyte Count 1.52 X10^3/uL (0.83-4.51); Absolute Neutrophil Count 4.9 X10^3/uL (2.0-7.7); Basophil# 0.08 X10^3/uL; Basophil% 1.1 % (0-1); Eosinophil# 0.19 X10^3/uL; Eosinophils% 2.6 % (0-5); Hematocrit 38.9 % (37-47); Hemoglobin 12.2 g/dL (12.0-15.0); Lymphocyte # 1.52 X10^3/ul (0.83-4.51); Lymphocyte % 20.7 % (19-41); Mean Corp Hgb Conc 31.4 g/dL (32-36); Mean Corpuscular Volume 92.6 fL (81-99); Mean Platelet Vol. 11.1 fl (6.2-12.0); Monocyte# 0.63 X10^3/uL; Monocyte% 8.6 % (0-10); NRBC Flagged by Analyzer 0 % (0-5); Neutrophil # 4.91 X10^3/uL (2.7-7.7); Neutrophil % 66.7 % (47-70); Platelet Count 282 K/mm3 (150-450); RBC Distribution Width CV 12.8 % (11.6-14.6); RBC Distribution Width SD 43.2 fl (35.1-43.9); White Blood Count 7.4 K/mm3 (4.4-11.0)
[2023-07-02 11:33] LABS: Hemoglobin A1c 8.4 % (3.8-5.6)
[2023-07-02 11:43] LABS: ALB/GLOB Ratio 0.9 RATIO (0.9-2.4); AST(SGOT) 11 U/L (15-37); Alanine Aminotransfer ALT/SGPT 13 U/L (13-56); Albumin, Serum 3.3 g/dL (3.2-5.0); Alkaline Phosphatase 67 U/L (45-117); Anion Gap 6 (5-15); BUN 46 mg/dL (7-18); BUN/Creat Ratio 21.5 RATIO (10-20); Chloride 110 mmol/L (98-107); Creatinine, Serum 2.14 mg/dL (0.55-1.02); EST Glomerular Filtration Rate 26 mL/min (>60); Est Glom Filt Rate - Afr Amer 31 mL/min (>60); Ferritin 24 ng/mL (8-252); Globulin 3.5 g/dL (2.2-4.2); Glucose 140 mg/dL (74-106); Iron 57 ug/dL (50-170); Iron Binding Capacity,Total 253 ug/dL (250-450); PERCENT IRON SATURATION 22.5 % (15.0-55.0); Phosphorus 3.8 mg/dL (2.5-4.9); Potassium 4.6 mmol/L (3.5-5.1); Protein, Total 6.8 g/dL (6.4-8.2); Sodium Level 140 mmol/L (136-145); T4 Free Direct 1.27 ng/dL (0.76-1.46); Thyroid Stim Hormone (TSH) 0.83 uIU/mL (0.358-3.74)
[2023-07-02 13:53] LABS: Cholesterol 174 mg/dL (200); High Density Lipoprotein 41 mg/dL; Triglycerides 120 mg/dL; Very Low Density Lipoprotein 24 mg/dL (5-40)
[2023-07-04 09:24] LABS: Vitamin B12 263 pg/mL (211-911); Vitamin D,25 Hydroxy 51.8 ng/mL
[2023-07-04 15:08] LABS: Albumin 3.4 g/dL (2.9-4.4); Alpha-1-Globulins 0.2 g/dL (0.0-0.4); Alpha-2-Globulins 0.7 g/dL (0.4-1.0); Cytoplasmic Ab (C-ANCA) <1:20 titer (Neg:<1:20); Immunoglobulin A 184 mg/dL (87-352); Immunoglobulin G 1070 mg/dL (586-1602); Immunoglobulin M 26 mg/dL (26-217); PROEL- TOTAL PROTEIN 6.2 g/dL (6.0-8.5); Perinuclear Ab (P-ANCA) <1:20 titer (Neg:<1:20)
== END | disposition home or self-care (01) ==
PROVIDERS: PCP Family Medicine; Referring Provider Internal Medicine Nephrology; Visit Provider Internal Medicine Nephrology
DX: N18.32 Chronic kidney disease, stage 3b (principal); E11.319 Type 2 diabetes mellitus with unspecified diabetic retinopathy without macular edema
CPT/HCPCS: 80053; 80061; 82306; 82607; 82728; 82746; 82784; 83036; 83540; 83550; 84100; 84165; 84439; 84443; 85025; 86256; 86334

== ENCOUNTER → 2023-07-04 | Outpatient (CLI) | payer MEDICARE, SELFPAY ==
[2023-07-04 12:10] LABS: Color, Urine Yellow (Yellow); Glucose, Dipstick 1000 mg/dl (Normal); Ketone-Dipstick Negative (Negative); Leukocyte Esterase-Dipstick 25 /ul (Negative); Nitrite-Dipstick Negative (Negative); Occult Blood-Urine Negative /ul (Negative); Protein-Dipstick 15 mg/dl (Negative); Urine Bilirubin Dipstick Negative (Negative); Urine Clarity Clear (Clear); Urine Urobilinogen Normal (Normal)
[2023-07-04 13:21] LABS: Microalbumin,Random Urine 41.1 mg/L (NO RANGE EST.); Microalbumin:Creatinine Ratio 86.3 mg/g CRE (<30 mg/g CRE); Protein, Urine (Random) 9.2 mg/dL (<11.9); Protein:Creat Ratio 193 mg/g CRE (0-200)
== END | disposition home or self-care (01) ==
LOC: LAB.FUTURE 10:36 → LABSPEC 10:38
PROVIDERS: PCP Family Medicine; Referring Provider Family Medicine; Visit Provider Family Medicine
DX: N18.32 Chronic kidney disease, stage 3b (principal)
CPT/HCPCS: 81002; 82043; 82570; 84156

== ENCOUNTER 2023-07-19 10:30 | Outpatient (RCR) | payer MEDICARE, SELFPAY ==
--- NOTE | 2023-06-17 10:41 | HP.PTEVAL_ITS ---
Patient's Visit Information Visit Information Visit Information: LAURA FIGUEROA is a 52 year old F referred to Physical Therapy by Dr. Joni Campo MD with a diagnosis of Foot Pain- Bilateral pes/kaycee pes cavus, neuropathy. Date of Evaluation: 06/17/23 Physical Therapist: Kira Rodriguez DPT Visit Plan Frequency: 2x /Week Duration: 4 Weeks Plan: Gastroc/Soleus Stretching, Dry Needling, US PRN Gym Machines: Leg Press, Hamstring Curl, Hip Abd, Hip Add- HEP: SLS, Gastroc Stretch, HR/TR Subjective Subjective: Patient reports that she has had footpain for a long time. She doesn't really feel like its painful just tightness. Pulling sensation in the arch of the foot- if she doesn't wear the braces she has tightness to right above the ankle brace. She does the best with the lace up braces and tennis shoes but if not in the braces she is best in cowboy boots. Aggravated by being up on her feet. Better when she is off her feet. She can forget about it but its always in the background- she has been dealing with this for a long time. She does stretches every day. They do go to the gym- ellip/TM/abs- has not gotten into legs yet. No loss of balance or falls. Fully I with all ADL's- legally blind- does not drive. 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 No tingling or burning. PMHx/Meds: no changes since 04/01/23 in chart. Objective Objective: Posture: FH, RS- can correct but does not maintain Gait: no deviation noted- does have high arches Palpation: not tender to touch throughout foot and lower extremity ROM: DF: neutral, PF: 60 degrees, Inver: 30 deg Ever: 20 deg Flex: HS: moderate Gastroc: severe Soleus: severe SLS: 2-3 seconds then loss of balance and stabilizes with other LE HR/TR: able with UE A but reports tightness Balance/Special Test Scores Lower Extremity Functional Score: 45 Goals Goal 1:: Patient will be I with HEP and progression Goal Time Frame: 4-6 Weeks Goal 2:: Patient will demo moderate restriction in her gastroc/soleus Goal Time Frame: 4-6 Weeks Goal 3:: Patient will report no tightness for 1 week Goal Time Frame: 4-6 Weeks Rehabilitation Potential Physical Therapy Diagnosis: Patient presents with hypomobility- pt has a Rehabilitation Potential: Good Anticipated Interventions Patient/Client Instruction: Educate patient on: Benefits of Fitness Program Therapeutic Exercise to Include: Strength training, Endurance training, Balance training, Body mechanics, Postural training, Flexibilty training, Gait and locomotor training, Neuromotor development, Dynamic Lumbar Stabilization and Scapular Strength/Stabilization Manual Therapy Techniques to Include: Functional dry needling and Soft tissue mobilization Ultrasound (thermal/non thermal): Yes Text: Thank you for the opportunity to evaluate your patient. For Medicare and Medicare HMO plans, please review the plan of care and approve it. It will need to be FAXED BACK to us at [phone] for Medicare purposes. For Medicare only, by signing this I certify the plan of care. Please let me know if there are questions or concerns regarding this plan of care. Physician Signature: Date:
--- NOTE | 2023-08-25 17:15 | HP.PT.NRP ---
Patient Information Patient Information: LAURA FIGUEROA was seen in my office for initial evaluation on 06/17/23. The following Plan of Care was established for this patient: POC Established Initial Frequency: 2x /Week Initial Duration: 4 Weeks Anticipated Interventions Patient/Client Instruction: Educate patient on: Benefits of Fitness Program Therapeutic Exercise to Include: Strength training, Endurance training, Balance training, Body mechanics, Postural training, Flexibilty training, Gait and locomotor training, Neuromotor development, Dynamic Lumbar Stabilization and Scapular Strength/Stabilization Manual Therapy Techniques to Include: Functional dry needling and Soft tissue mobilization Ultrasound (thermal/non thermal): Yes Last Seen Last Seen: This patient was last seen in our office . Pertinent comments regarding their Physical therapy will appear below: Patient to continue HEP- d/c from PT At this point I will be discontinuing this patient from physical therapy. I would be happy to see this patient again in the future if found appropriate by the physician. Thank you! Kira Rodriguez, DPT Balance/Gait/Functional tests Balance/Special Test Scores Lower Extremity Functional Score: 45
== END 2023-07-19 19:00 | disposition home or self-care (01) ==
LOC: PT 10:30
PROVIDERS: PCP Family Medicine; Referring Provider Family Medicine; Visit Provider Family Medicine
DX: M79.671 Pain in right foot (principal); M79.672 Pain in left foot; Q66.71 Congenital pes cavus, right foot; Q66.72 Congenital pes cavus, left foot; G62.9 Polyneuropathy, unspecified
CPT/HCPCS: 97110; 97140; 97162

== ENCOUNTER 2023-09-03 23:35 | Emergency (ER) | payer MEDICARE, MEDICAID, SELFPAY ==
[2023-09-03 23:36] VITALS: BP 188/112; PULSE 91; RESP 18; TEMP 36.6; O2SAT 99; BMI 32.8
--- NOTE | 2023-09-04 00:20 | EDS_ITS ---
HPI History of Present Illness Chief Complaint: Back [facility] Medical History Amputation of left middle finger Anxiety Asthma Atherosclerotic heart disease of [place] coronary artery without angina pectoris Blindness Cat scratch of right hand COVID-19 Diabetes mellitus type 1 Diabetes mellitus type 1, uncontrolled, insulin dependent Diabetic retinopathy Difficulty balancing when standing Essential hypertension Family history of hypertension Hearing loss Hives Hypophosphatemia Hypothyroidism Kidney disease Mixed hyperlipidemia Old myocardial infarction Pericarditis Rash Retinopathy Rheumatoid arthritis Shoulder pain ST elevation myocardial infarction (STEMI) of anterior wall Home Medications insulin aspart U-100 100 unit/mL subcutaneous solution (Novolog U-100 Insulin aspart) See Rx Instructions subcut TID diabetes 12/12/17 [History Last Taken 05/29/19 11:30] cholecalciferol (vitamin D3) 50 mcg (2,000 unit) capsule 50 mcg PO DAILY 10/31/20 [History Last Taken Unknown] omeprazole 20 mg capsule,delayed release 20 mg PO DAILY 10/31/20 [History Last Taken Unknown] ascorbic acid (vitamin C) 1,000 mg tablet 1 g PO DAILY 04/16/21 [History Last Taken Unknown] Novopen Echo (insulin admin supplies) #1 ea 05/01/21 [Rx Last Taken Unknown] pen needle, diabetic 32 gauge x 32 #50 ea 05/01/21 [History Last Taken Unknown] aspirin 81 mg tablet,delayed release (Adult Low Dose Aspirin) 81 mg PO DAILY 03/08/22 [History Last Taken Unknown] ferrous sulfate 325 mg (65 mg iron) tablet 325 mg PO DAILY 01/17/23 [History Last Taken Unknown] levothyroxine 112 mcg tablet 112 mcg PO DAILY 01/17/23 [History Last Taken Unknown] lisinopril 10 mg tablet 10 mg PO DAILY 01/17/23 [History Last Taken Unknown] magnesium oxide 400 mg PO DAILY 01/17/23 [History Last Taken Unknown] nitroglycerin 0.4 mg sublingual tablet 0.4 mg sublingual Q5M PRN chest pain #25 tabs 01/17/23 [Rx Last Taken Unknown] clopidogrel 75 mg tablet 75 mg PO DAILY NEEDS SCRIPTTALK LABELS: patient is blind #90 tabs 02/11/23 [Rx Last Taken Unknown] isosorbide mononitrate 30 mg tablet,extended release 24 hr 30 mg PO DAILY NEEDS SCRIPTTALK LABELS: patient is blind #90 tabs 03/07/23 [Rx Last Taken Unknown] insulin degludec 100 unit/mL subcutaneous solution (Tresiba U-100 Insulin) 22 unit subcut DAILY 03/31/23 [History Last Taken Unknown] dapagliflozin propanediol 10 mg tablet (Farxiga) 10 mg PO DAILY 07/05/23 [History Last Taken Unknown] rosuvastatin 10 mg tablet 10 mg PO DAILY #90 tabs 07/05/23 [Rx Last Taken Unknown] carvedilol 6.25 mg tablet 6.25 mg PO BID Needs SCRIPTTALK LABELS: pt is blind #180 tabs 07/11/23 [Rx Last Taken Unknown] oxycodone 5 mg tablet 5 mg PO Q6H PRN pain 3 days #12 tabs 09/04/23 [Rx Last Taken Unknown] Allergy/AdvReac Type Severity Reaction Status Date / Time adhesive tape Allergy Severe Unknown Verified 09/03/23 23:39 latex Allergy Rash Verified 09/03/23 23:39 Family History Mother CAD (coronary artery disease) Hx of CABG Brother Hypertension Melanoma Father Atrial fibrillation Grandmother Lung cancer Brother Diabetes Other Cancer anesthesia allergy Surgical History H/O angioplasty H/O breast augmentation H/O vitrectomy H/O: History of cholecystectomy History of coronary angioplasty (~11/08/13) History of left heart catheterization History of tonsillectomy Hx of eye surgery Presence of stent in coronary artery (~01/23/14) S/P appendectomy Social History Smoking Status: Never smoker second hand exposure: No alcohol intake: current alcohol intake frequency: a few times a month substance use type: does not use caffeine: Yes Type: coffee Number of servings: 6 and tea Number of servings: 2 ROS ROS ED Constitutional Constitutional ED: Denies chills, fever(s) or sweats Eyes Eyes: Denies blurry vision or change in vision ENT ENT ED: Denies ear pain or sore throat Cardiovascular Cardiovascular: Denies chest pain, palpitations or racing heartbeat Respiratory/Chest Respiratory/Chest: Denies cough, dyspnea or sputum Gastrointestinal Gastrointestinal: Denies abdominal pain, constipation, diarrhea, nausea or vomiting Genitourinary Genitourinary ED: Denies dysuria, hematuria or urinary frequency Musculoskeletal Musculoskeletal: Reports back pain; Denies arthralgias, myalgias or neck pain Integumentary Denies abscess, Abrasions or rash Neurologic Neurologic: Denies headache(s), paresthesias or weakness Psychiatric Psychiatric: Denies anxiety, depression, suicidal ideation or suicidal thoughts Endocrine Endocrinology: Denies polydipsia or polyuria EXAM Physical Exam Const Vital Signs: 09/03/23 23:36 09/04/23 00:36 Temperature 97.9 F Temperature Source Oral Pulse Rate 91 Respiratory Rate 18 Blood Pressure 188/112 H 161/89 H Blood Pressure Mean 137 113 Pulse Ox 99 Oxygen Delivery Method Room Air Positive well nourished General Appearance ED: NAD HEENT Reports moist mucous membranes Eyes PERRL and EOMs intact bilaterally Neck no lymphadenopathy Resp normal respiratory effort Cardio regular rate and regular rhythm GI normal to inspection, nondistended, normoactive bowel sounds Back/Spine Back/Spine Narrative: Lumbar spinal tenderness approximately L1-L3. No obvious deformity or step-off. No bruising. Extremity normal to inspection Neuro oriented x3 and no sensory deficits noted Sensorium / Orientation: alert Motor Exam: strength 5/5 throughout Psych mental status grossly normal Skin no rashes or lesions noted and no wounds MDM MDM MDM Narrative Medical decision making narrative: 2-year-old female with back pain after mechanical fall. Differential includes lumbar strain, compression fracture. Patient given [place] and Lidoderm patch. X-ray of the lumbar spine will be obtained. Patient's x-ray on my interpretation shows no acute fracture. The radiologist states there is a chronic appearing superior endplate compression deformity at T12, L1, L2. On reevaluation patient still complaining of pain so I did give her a shot of Toradol. I will write her prescription for oxycodone for home. Return precautions were discussed. Impression: 1. Fall 2. Lumbar contusion Lab Data Attestation: I reviewed the patient's lab results. Radiography Diagnostic Testing: Clinical Impression(s) from Imaging Studies Lumbar Spine X-Ray 09/04/23 00:50 IMPRESSION: 1. Mild chronic appearing superior endplate compression deformities at T12, L1 and L2 2. Mild thoracolumbar chronic levoscoliotic curvature Electronically Signed: Abram Jarrett MD at 1:57 EDT , Treatment and Re-Evaluation Narrative: 2-year-old female who is legally blind states she tripped over her dog and fell in a twisting motion landing on her tailbone but complains of pain in the lower back. Her tailbone does not hurt. No head injury or LOC. Patient having trouble walking secondary to pain. She took Tylenol before coming to the ER. Discharge Plan Triage Chief Complaint: Back ED Provider: Isacc Yoo Dx/Rx/DC Orders Instructions: ED Back Contusion Prescriptions: New oxycodone 5 mg tablet 5 mg PO Q6H PRN (Reason: pain) 3 Days Qty: 12 0RF No Action insulin aspart U-100 [Novolog U-100 Insulin aspart] 100 unit/mL solution See Rx Instructions SC TID Patient Comments: per sliding scale SC TID Rx Instructions: per sliding scale SC TID, 1 unit per 5 carbs, breakfast and lunch only omeprazole 20 mg capsule,delayed release(DR/EC) 20 mg PO DAILY cholecalciferol (vitamin D3) 50 mcg (2,000 unit) capsule 50 mcg PO DAILY ascorbic acid (vitamin C) 1,000 mg tablet 1 g PO DAILY (DME) pen needle, diabetic 32 gauge x 5/32 needle See Rx Instructions .ROUTE .MEDSUPPLY Qty: 50 Rx Instructions: As directed (DME) Novopen Echo Insulin Pen See Rx Instructions .ROUTE .MEDSUPPLY Qty: 1 0RF Rx Instructions: As directed aspirin [Adult Low Dose Aspirin] 81 mg tablet,delayed release (DR/EC) 81 mg PO DAILY levothyroxine 112 mcg tablet 112 mcg PO DAILY lisinopril 10 mg tablet 10 mg PO DAILY magnesium oxide 400 mg magnesium tablet 400 mg PO DAILY ferrous sulfate 325 mg (65 mg iron) tablet 325 mg PO DAILY nitroglycerin 0.4 mg tablet, sublingual 0.4 mg sublingual Q5M PRN (Reason: chest pain) Qty: 25 1RF Rx Instructions: do not exceed 3 doses per episode insulin degludec [Tresiba U-100 Insulin] 100 unit/mL solution 22 unit SC DAILY Farxiga 10 mg tablet 10 mg PO DAILY rosuvastatin 10 mg tablet 10 mg PO DAILY Qty: 90 3RF clopidogrel 75 mg tablet 75 mg PO DAILY Qty: 90 3RF Rx Instructions: anti platelet for stent protection isosorbide mononitrate 30 mg tablet extended release 24 hr 30 mg PO DAILY Qty: 90 3RF carvedilol 6.25 mg tablet 6.25 mg PO BID Qty: 180 3RF Rx Instructions: blood pressure Primary Care Provider: Joni Campo Referrals: Joni Campo MD [Primary Care Provider] - Disposition Disposition: Home, Self Care
[2023-09-04] MEDS: Lidocaine 5% Patch 1 PATCH TOPICAL (00:31)
[2023-09-04] MEDS: HYDROcodone Bitartrate/Apap 5/325 Tablet PO (00:32)
[2023-09-04 00:36] VITALS: BP 161/89
--- NOTE | 2023-09-04 00:50 | RAD_ITS ---
INDICATION: Fall, back pain EXAMINATION/TECHNIQUE: X-RAY - XR Spine Lumbar 2 or 3 Views COMPARISON: Abdominal radiographs from 09/21/2013 FINDINGS: VERTEBRAE: Chronic appearing superior endplate compression deformities resulting in mild loss of vertebral body height at T12, L1 and L2. No evidence of acute fracture. Stable mild thoracolumbar levoscoliotic curvature with no significant spondylolisthesis. Preservation of the normal lumbar lordosis. Mild lower lumbar degenerative facet arthropathy. DISCS: Disc spaces are maintained. INCLUDED ABDOMEN: Included bowel gas pattern is non-obstructive. RAD/Lumbar Spine 2 or 3 Views IMPRESSION: 1. Mild chronic appearing superior endplate compression deformities at T12, L1 and L2 2. Mild thoracolumbar chronic levoscoliotic curvature Electronically Signed: Abram Jarrett MD at 1:57 EDT ,
[2023-09-04] MEDS: Ketorolac 15 MG/ML Vial IM (02:46)
[2023-09-04 02:57] VITALS: BP 146/88; PULSE 72; RESP 18; O2SAT 98
== END 2023-09-04 03:21 | disposition home or self-care (01) ==
PROVIDERS: Emergency Provider Student in an Organized Health Care Education/Training Program; PCP Family Medicine; Visit Provider Student in an Organized Health Care Education/Training Program
DX: S30.0XXA Contusion of lower back and pelvis, initial encounter (principal); Z79.4 Long term (current) use of insulin; E10.9 Type 1 diabetes mellitus without complications; I10 Essential (primary) hypertension; I25.10 Atherosclerotic heart disease of native coronary artery without angina pectoris; E78.2 Mixed hyperlipidemia; I25.2 Old myocardial infarction; I5A Non-ischemic myocardial injury (non-traumatic); Z79.899 Other long term (current) drug therapy; Z79.82 Long term (current) use of aspirin; E03.9 Hypothyroidism, unspecified; Z79.02 Long term (current) use of antithrombotics/antiplatelets; Z95.820 Peripheral vascular angioplasty status with implants and grafts; Z90.49 Acquired absence of other specified parts of digestive tract; Z95.5 Presence of coronary angioplasty implant and graft; W19.XXXA Unspecified fall, initial encounter
CPT/HCPCS: 72100; 99284

== ENCOUNTER → 2023-12-31 | Outpatient (CLI) | payer MEDICARE, SELFPAY ==
--- OUTSIDE RECORDS SUMMARY | 2023-12-31 10:19 | XMS RPT_ITS | CCD ---
Author Name Unknown Address [address] [place] [id number] Organization [facility] Care Team Providers Care Telesales Team Leader Name Role Phone Unavailable Primary Care Provider Unavailabl e Problems Problem Classification Problem Date Documented Da te Episodic/Chronic Chronic kidney disease (1 source) Chronic kidney disease stage 3B ; Translations: [Chronic kidney disease, stage 3b (HCC)] 02-16-2023 Chronic Results Test Name Value Interpretation Reference Range Facil ity Encounters Encounter Date Encounter Type Care Provider Facility Start: 02-16-2023 Transcribe Orders Cely Hermosillo MD Work Phone: [facility] Central Scheduling Plan of Treatment Date Care Activity Detail Author Start: 07-29-2023 Influenza vaccination Influenz a Vaccine (Season Ended) [facility] Start: 02-16-2023 End: 02-17-2024 US Retroperitoneum US retroperitoneum Imaging Routine Chronic kidney disease, stage 3b (HCC) Expected: 02/16/2023, Expires: 02/17/2024 [facility] Work Phone: Social History Date Type Detail [facility] Start: 1970 Sex Assigned At Not on file [facility] Gender identity Not on file [facility] Evaluation note Note Date & Type Note Facility documented in this encounter [facility] Summary Purpose Family History No Family History Records Found Advance Directives No Advanced Directives Records Found Additional Source Comments INFORMATION SOURCE (unrecogn ized section and content) FOR RECORDS PERTAINING TO PATIENTS WHO ARE OR HAVE BEEN ENROLLED IN A CHEMICAL DEPENDENCY/SUBSTANCEABUSE PROGRAM, SOME INFORMATION MAY BE OMITTED. This clinical summary was aggregated from multiple sources. Caution should be exercised in using it in the provision of clinical care. This summary normalizes information from multiple sources, and as a consequence, information in this document may materially change the coding, format and clinical context of patient data. In addition, data may be omitted in some cases. CLINICAL DECISIONS SHOULD BE BASED ON THE PRIMARY CLINICAL RECORDS. [facility] [facility]. provides no warranty or guarantee of the accuracy or completeness of information in this document.
[2023-12-31 11:28] LABS: Hematocrit 44.6 % (37-47); Hemoglobin 13.9 g/dL (12.0-15.0); Mean Corp Hgb Conc 31.2 g/dL (32-36); Mean Corpuscular Hgb 28.1 pg (27.0-32.0); Mean Corpuscular Volume 90.3 fL (81-99); Mean Platelet Vol. 11.6 fl (6.2-12.0); Platelet Count 273 K/mm3 (150-450); RBC Distribution Width CV 13.2 % (11.6-14.6); RBC Distribution Width SD 43.7 fl (35.1-43.9); Red Blood Count 4.94 M/mm3 (4.2-5.4); White Blood Count 6.2 K/mm3 (4.4-11.0)
[2023-12-31 11:55] LABS: Albumin, Serum 3.4 g/dL (3.2-5.0); BUN 30 mg/dL (7-18); BUN/Creat Ratio 14.2 RATIO (10-20); Calcium,Total 9.7 mg/dL (8.5-10.1); Chloride 112 mmol/L (98-107); Creatinine, Serum 2.11 mg/dL (0.55-1.02); EST Glomerular Filtration Rate 26 mL/min (>60); Est Glom Filt Rate - Afr Amer 31 mL/min (>60); Glucose 89 mg/dL (74-106); Phosphorus 4.2 mg/dL (2.5-4.9); Potassium 4.2 mmol/L (3.5-5.1); Sodium Level 144 mmol/L (136-145)
[2023-12-31 11:57] LABS: Protein:Creat Ratio 100 mg/g CRE (0-200)
[2024-01-02 08:07] LABS: Vitamin D,25 Hydroxy 54.2 ng/mL
== END | disposition home or self-care (01) ==
LOC: LAB 10:16
PROVIDERS: PCP Family Medicine; Referring Provider Internal Medicine Nephrology; Visit Provider Internal Medicine Nephrology
DX: N18.32 Chronic kidney disease, stage 3b (principal)
CPT/HCPCS: 36415; 80069; 82306; 82570; 83970; 84156; 85027

== ENCOUNTER → 2024-04-16 | Outpatient (CLI) | payer MEDICARE, SELFPAY ==
[2024-04-16 11:32] LABS: AST(SGOT) 11 U/L (15-37); Alanine Aminotransfer ALT/SGPT 12 U/L (13-56); Albumin, Serum 3.5 g/dL (3.2-5.0); Alkaline Phosphatase 77 U/L (45-117); Bilirubin, Direct 0.11 mg/dL (0.00-0.30); Cholesterol 176 mg/dL (200); Globulin 3.4 g/dL (2.2-4.2); High Density Lipoprotein 55 mg/dL; Protein, Total 6.9 g/dL (6.4-8.2); Triglycerides 72 mg/dL; Very Low Density Lipoprotein 14 mg/dL (5-40)
== END | disposition home or self-care (01) ==
LOC: LAB 09:57
PROVIDERS: PCP Family Medicine; Referring Provider Physician Assistant Medical; Visit Provider Physician Assistant Medical
DX: Z95.5 Presence of coronary angioplasty implant and graft (principal); E78.2 Mixed hyperlipidemia; I10 Essential (primary) hypertension; I25.10 Atherosclerotic heart disease of native coronary artery without angina pectoris
CPT/HCPCS: 36415; 80061; 80076

== ENCOUNTER → 2024-06-26 | Outpatient (CLI) | payer MEDICARE, MEDICAID, SELFPAY ==
[2024-06-26 13:12] LABS: Albumin, Serum 3.3 g/dL (3.2-5.0); BUN 34 mg/dL (7-18); BUN/Creat Ratio 16.7 RATIO (10-20); Calcium,Total 9.4 mg/dL (8.5-10.1); Chloride 108 mmol/L (98-107); Creatinine, Serum 2.03 mg/dL (0.55-1.02); EST Glomerular Filtration Rate 27 mL/min (>60); Est Glom Filt Rate - Afr Amer 33 mL/min (>60); Glucose 128 mg/dL (74-106); Phosphorus 4.2 mg/dL (2.5-4.9); Potassium 4.3 mmol/L (3.5-5.1); Sodium Level 140 mmol/L (136-145)
[2024-06-26 13:59] LABS: Protein, Urine (Random) 55.1 mg/dL (<11.9); Protein:Creat Ratio 772 mg/g CRE (0-200)
== END | disposition home or self-care (01) ==
PROVIDERS: PCP Family Medicine; Referring Provider Internal Medicine Nephrology; Visit Provider Internal Medicine Nephrology
DX: N18.32 Chronic kidney disease, stage 3b (principal)
CPT/HCPCS: 36415; 80069; 82570; 84156

== ENCOUNTER → 2024-12-28 | Outpatient (CLI) | payer MEDICARE, MEDICAID, SELFPAY ==
[2024-12-28 10:29] LABS: Protein, Urine (Random) < 6.0 mg/dL (<11.9); Protein:Creat Ratio 77 mg/g CRE (0-200)
[2024-12-28 10:46] LABS: Albumin, Serum 3.6 g/dL (3.2-5.0); BUN 45 mg/dL (7-18); BUN/Creat Ratio 20.8 RATIO (10-20); Calcium,Total 9.3 mg/dL (8.5-10.1); Chloride 109 mmol/L (98-107); Creatinine, Serum 2.16 mg/dL (0.55-1.02); EST Glomerular Filtration Rate 25 mL/min (>60); Est Glom Filt Rate - Afr Amer 30 mL/min (>60); Glucose 165 mg/dL (74-106); Phosphorus 3.7 mg/dL (2.5-4.9); Potassium 4.3 mmol/L (3.5-5.1); Sodium Level 139 mmol/L (136-145)
== END | disposition home or self-care (01) ==
LOC: LAB 09:02
PROVIDERS: PCP Family Medicine; Referring Provider Nurse Practitioner Adult Health; Visit Provider Nurse Practitioner Adult Health
DX: N18.32 Chronic kidney disease, stage 3b (principal)
CPT/HCPCS: 36415; 80069; 82570; 84156

== ENCOUNTER → 2025-01-29 | Outpatient (CLI) | payer MEDICARE, SELFPAY ==
--- NOTE | 2025-01-29 15:56 | BI_ITS ---
PROCEDURE: SCRN MAMM (CAD)W/OZ BILAT REASON FOR EXAM: F, Age 54 y/o, presents for annual screening mammogram. No family history of breast cancer. TECHNIQUE: Bilateral screening digital breast tomosynthesis with 2D and 3D images. Computer aided detection. COMPARISON: 06/09/2021 FINDINGS: The breasts are heterogeneously dense which may obscure small masses. The mammogram demonstrates that the patient has dense breasts. Supplemental screening with whole breast ultrasound or MRI may be considered for further evaluation. There are bilateral prepectoral silicone breast implants. No suspicious masses, areas of developing architectural distortion, or suspicious calcifications. BI/SCRN MAMM (CAD)W/OZ BILAT IMPRESSION: There is no mammographic evidence of malignancy. BI-RADS 1: NEGATIVE. RECOMMEND ANNUAL MAMMOGRAPHIC SCREENING. Follow-up code: Routine Follow-up The patient will be notified of the results by letter. Reading Location: [id number]
--- NOTE | 2025-01-29 16:01 | BD_ITS ---
PROCEDURE: DEXA BONE DENSITY STUDY REASON FOR EXAM: F, age 54 y/o . Postmenopausal. TECHNIQUE: DEXA scan of the lumbar spine and both hips. COMPARISON: Comparison is made with prior study dated September 22, 2022. FINDINGS: Lumbar Spine (L1-L4): g/cm2 (0.938)/T-score (-0.9)/Z-score (0.1) findings are suggestive of normal with a low fracture risk. Left Femur Total: g/cm2 (0.711)/T-score (-1.9)/Z-score (-1.2) Left Femoral Neck: g/cm2 (0.568)/T-score (-2.5)/Z-score (-1.5) Right Femur Total: g/cm2 (0.688)/T-score (-2.1)/Z-score (-1.4) Right Femoral Neck: g/cm2 (0.566)/T-score (-2.5)/Z-score (-1.4) The T-Scores on the most recent prior examination were: Lumbar Spine (L1-L4): There has been worsening of bone density since the previous examination. Left Femur Total: Worsening a by 10.2%. Right Femur Total: Worsening by 14.4%. BD/Dexa Bone Density Study IMPRESSION: The patient is considered osteoporosis as outlined below according to World Hea th Organization (WHO) criteria with a high fracture risk. There has been worsening of bone density since the previous exa mination. Reading Location: [facility]
== END | disposition home or self-care (01) ==
PROVIDERS: PCP Family Medicine; Referring Provider Family Medicine; Visit Provider Family Medicine
DX: Z12.31 Encounter for screening mammogram for malignant neoplasm of breast (principal); Z78.0 Asymptomatic menopausal state; M85.80 Other specified disorders of bone density and structure, unspecified site
CPT/HCPCS: 77063; 77067; 77080

== ENCOUNTER → 2025-07-31 | Outpatient (CLI) | payer OTHER, MEDICARE, SELFPAY ==
[2025-07-31 13:05] LABS: Hematocrit 39.6 % (37-47); Hemoglobin 13.1 g/dL (12.0-15.0); Mean Corp Hgb Conc 33.1 g/dL (32-36); Mean Corpuscular Volume 88.8 fL (81-99); Mean Platelet Vol. 11.2 fl (6.2-12.0); Platelet Count 269 K/mm3 (150-450); RBC Distribution Width CV 13.5 % (11.6-14.6); RBC Distribution Width SD 44.1 fl (35.1-43.9); Red Blood Count 4.46 M/mm3 (4.2-5.4); White Blood Count 6.2 K/mm3 (4.4-11.0)
[2025-07-31 13:37] LABS: Creatinine, Urine (random) 129.00 mg/dL (28.00-217.00)
[2025-07-31 13:52] LABS: Protein, Urine (Random) 10.3 mg/dL (0.0-12.0); Protein:Creat Ratio 80 mg/g CRE (0-200)
[2025-07-31 14:16] LABS: PTHIN 76 pg/mL (11-61)
[2025-07-31 14:56] LABS: Albumin, Serum 3.9 g/dL (3.5-5.0); Anion Gap 12 (5-15); BUN 40 mg/dL (4-19); BUN/Creat Ratio 22.4 RATIO (10-20); Calcium,Total 9.5 mg/dL (7.6-11.0); Carbon Dioxide 19.7 mmol/L (21.0-32.0); Chloride 108 mmol/L (98-108); Glucose 88 mg/dL (70-99); Potassium 4.4 mmol/L (3.3-5.1); Vitamin D,25 Hydroxy 38.0 ng/mL (30-100)
== END | disposition home or self-care (01) ==
LOC: LAB 12:16
PROVIDERS: PCP Family Medicine; Referring Provider Internal Medicine Nephrology; Visit Provider Internal Medicine Endocrinology, Diabetes & Metabolism
DX: E03.9 Hypothyroidism, unspecified (principal); N18.32 Chronic kidney disease, stage 3b
CPT/HCPCS: 36415; 80069; 82306; 82570; 83970; 84156; 84443; 85027

== ENCOUNTER 2025-08-23 00:35 | Inpatient (IN) | payer OTHER, MEDICARE, SELFPAY ==
[2025-08-23] VITALS (18 sets, daily range): BP systolic 105–179; BP diastolic 51–87; PULSE 76–85; RESP 16–18; TEMP 36.1–37.2; O2SAT 92–100; BMI 29.4; BMI 28.5
--- NOTE | 2025-08-23 01:34 | RAD_ITS ---
PROCEDURE: FOOT MIN 3 VIEWS 08/23/2025 REASON FOR EXAM: ? OSTEOMYELITIS TECHNIQUE: Procedure Code: RADFO Modality: DX Procedure: FOOT MIN 3 VIEWS Laterality: Right COMPARISON: None. FINDINGS: Soft tissue edema and swelling. Fragmentation/erosive changes of the tip of the distal phalanx of the big toe, suspicious for osteomyelitis. Subacute healing fractures in the 3rd and 5th metatarsal bones. Ununited fracture in the base of the 2nd metatarsal bone. Moderate osteopenia. Hallux valgus deformity. Hammertoes deformities of the 2nd through 5th toes. Calcaneal spur formation. Mild osteopenia of the visualized bones. Degenerative joint disease. No dislocation is seen. RAD/Foot min 3 Views IMPRESSION: Soft tissue edema and swelling. Fragmentation/erosive changes of the tip of the distal phalanx of the big toe, suspicious for osteomyelitis. Subacute healing fractures in the 3rd and 5th metatarsal bones. Ununited fracture in the base of the 2nd metatarsal bone. Moderate osteopenia. Hallux valgus deformity. Hammertoes deformities of the 2nd through 5th toes. Reading Location: [facility]
[2025-08-23 01:57] LABS: Hematocrit 37.3 % (37-47); Hemoglobin 12.6 g/dL (12.0-15.0); Immature Granulocytes Count 0.050 X10^3/uL (0.0-0.0); Mean Corp Hgb Conc 33.8 g/dL (32-36); Mean Corpuscular Volume 88.0 fL (81-99); Mean Platelet Vol. 10.4 fl (6.2-12.0); NRBC Flagged by Analyzer 0 % (0-5); Platelet Count 371 K/mm3 (150-450); RBC Distribution Width CV 13.1 % (11.6-14.6); RBC Distribution Width SD 42.4 fl (35.1-43.9); Red Blood Count 4.24 M/mm3 (4.2-5.4); White Blood Count 10.1 K/mm3 (4.4-11.0)
--- NOTE | 2025-08-23 02:00 | RAD_ITS ---
PROCEDURE: ANKLE MIN 3 VIEWS 08/23/2025 REASON FOR EXAM: PAIN TECHNIQUE: Procedure Code: RADANK Modality: DX Procedure: ANKLE MIN 3 VIEWS Laterality: Right COMPARISON: None. FINDINGS: Soft tissue edema and swelling overlying the medial and lateral malleoli. Detached bone fragment adjacent to the base of the 4th or 5th metatarsal bone identified only on the lateral view, probably presenting acute fracture. Mild osteopenia of the visualized bones. Degenerative joint disease. No dislocation is seen. No lytic or blastic bone lesion is noted. RAD/Ankle min 3 Views IMPRESSION: Soft tissue edema and swelling overlying the medial and lateral malleoli. Detached bone fragment adjacent to the base of the 4th or 5th metatarsal bone i dentified on the lateral view, probably presenting acute fracture. Reading Location[facility]
[2025-08-23] MEDS: Piperacil/Tazobactam 3.375 GM in 0.9% Normal Saline (50mL MB+) 50 ML IV ×3 (02:02→22:29)
[2025-08-23] MEDS: Vancomycin HCl 1,250 MG in 0.9% Normal Saline (250mL Bag) 250 ML 167 MG IV (02:16)
--- OUTSIDE RECORDS SUMMARY | 2025-08-23 02:19 | XMS RPT_ITS | CCD ---
Author Organization [facility] Care Team Providers Care Mechanic'S Assistant Name Role Phone Dr. Joni Campo Primary Care Provider Dr. Join Campo Referring Provider Dr. Danyel Mendez Attending Provider OSVALDO Vázquez NP Attending Provider Dr. Sanford Dave Attending Provider Dr. Joni Campo Primary Care Provider [phone] Dr. Joni Campo Primary Care Provider [phone] Dr. Sanford Dave Attending Provider [phone] Joni Campo Primary Care Provider [phone] Marisabel Driver Attending Provider Unavailable Dr. Joni Campo Referring Provider [phone] Dr. Sanford Dave Attending Provider [phone] Unavailable Primary Care Provider Unavailabl e Dr. Joni Campo Primary Care Provider [phone] Joni Campo Referring Provider [phone] Dr. Danyel Mendez Attending Provider Dr. Joni Campo Primary Care Provider [phone] Dr. Joni Campo Referring Provider [phone] Dr. Danyel Mendez Attending Provider [phone] Farshad PEDRAZA, MILO Tolbert Attending Provider Dr. Joni Campo MD Primary Care Provider Dr. Joni Campo MD Referring Provider Dr. Danyel Mendez MD Attending Provider Nargis Brandon Attending Provider Griselda JAILER-CNargis Referring Provider Alber VINCENT, Dr. Quinones Attending Provider Alber VINCENT, Dr. Quinones Primary Care Physician Dr. Danyel Mendez MD Attending Physician [phone] Jaimee VINCENT, Dr. Euceda Referring Provider [phone] Joni Campo Attending Unavailable Campo, Joni Referring Unavailable Campo, Joni Primary Care Unavailable Nargis Villalobos Attending Unavailable Nargis Villalobos Referring Unavailable Campo, Joni Primary Care Unavailable Alber, Joni Primary Care Unavailable Danyel Mendez Attending Unavailable Kinsey Hermosillo Referring Unavailable Campo, Joni Referring Unavailable Campo, Joni Primary Care Unavailable Danyel Mendez Attending Unavailable Alber, Joni Referring Unavailable Danyel Mendez Attending Unavailable Campo, Joni Primary Care Unavailable Allergies Allergy Classification Reported Allergen(s) Allergy Type Date of Onset Reaction(s) Facility (10 sources) Adhesive Tape; Translations: [adhesive tape] Allergy to substance 04-28-2022 Unknown [facility] (9 sources) Latex Allergy to substance 04-28-2022 Rash [facility] (1 source) Latex Drug allergy (disorder) 03-26-2025 [facility] Repository Medications Current Medications Medication Drug Class(es) Dates Sig (Normalized) Sig (Original) ascorbic acid 1000 mg oral tablet (18 sources) Vitamin C Start: 04-16-2021 take 1 g by mouth once daily Start: 04-16-2021 take 1 g by mouth once daily A scorbic Acid (Vitamin C) Active 1 GM PO DAILY April 16, 2021 4:09pm Start: 10-31-2020 End: 04-16-2021 take 1 g by mouth every six hours Ascorbic Acid (Vitamin C) 1,000 mg tablet Discontinued 1 g PO EVERY 6 HOURS October 31, 2020 1:00am April 16, 2021 4:10pm Start: 10-31-2020 End: 04-16-2021 take 1 g by mouth every six hours Ascorbic Acid (Vitamin C) Discontinued 1 GM PO EVERY 6 HOURS October 31, 2020 1:00am April 16, 2021 4:10pm aspirin 81 mg delayed release oral tablet (18 sources) Platelet Aggregation Inhibitor, Nonsteroidal Anti-inflammatory Drug Start: 03-08-2022 Start: 02-18-2015 End: 05-02-2020 take 1 tablet by mouth once daily Aspirin 81 MG tablet,chewable Discontinued 81 mg PO DAILY@0800 February 18, 2015 12:00am May 02, 2020 5:10pm heart [facility] heart protection carvedilol 6.25 mg oral tablet (20 sources) alpha-Adrenergic Naya, beta-Adrenergic Naya Start: 11-15-2023 take 3.125 mg by mouth twice daily Start: 02-18-2015 End: 11-15-2023 take 1 tablet by mouth twice daily Carvedilol 6.25 mg tablet Discontinued 6.25 mg PO TWICE A DAY 180 3 July 11, 2023 4:00pm November 15, 2023 10:45am Needs SCRIPTTALK LABELS: pt is blind blood pressure cholecalciferol 0.05 mg oral capsule (18 sources) Vitamin D Start: 10-31-2020 take 1 capsule by [facility] once daily Start: 08-11-2018 End: 05-02-2020 take 1 tablet by mouth once daily Cholecalciferol (Vitamin D3) 1,000 UNIT tablet Discontinued 1000 U PO DAILY August 11, 2018 12:00am May 02, 2020 5:10pm vitamin general wellness clopidogrel 75 mg oral tablet (20 sources) P2Y12 Platelet Inhibitor Start: 02-18-2015 End: 08-07-2025 take 1 tablet by mouth once daily dapagliflozin 10 mg oral tablet (5 sources) Sodium-Glucose Cotransporter 2 Inhibitor Start: 07-05-2023 take 1 tablet by mouth once daily Insulin Admin Supplies (Novopen Echo) insulin pen (9 sources) Start: 05-01-2021 Insulin Admin Supplies (Novopen Echo) insulin pen Active 0 .ROUTE .MEDSUPPLY 1 0 May 01, 2021 12:00am As directed Start: 05-01-2021 Insulin Admin Supplies (Novopen Echo) insulin pen Active 0 .ROUTE .MEDSUPPLY 1 April 30, 2021 11:00pm As directed Start: 05-01-2021 Insulin Admin Supplies (Novopen Echo) insulin pen Active 0 .ROUTE .MEDSUPPLY 1 May 01, 2021 12:00am As directed levothyroxine sodium 0.125 m g oral tablet (20 sources) l-Thyroxine Start: 08-01-2025 Start: 02-28-2024 End: 08-01-2025 take 1 tablet by mouth once daily Levothyroxine 125 mcg tablet Discontinued 125 ug PO daily February 28, 2024 12:00am August 01, 2025 12:05pm Start: 01-17-2023 End: 02-28-2024 take 1 tablet by mouth once daily Levothyroxine 112 mcg tablet Discontinued 112 ug PO DAILY January 17, 2023 1:00am February 28, 2024 10:41am Start: 04-09-2019 End: 01-17-2023 take 1 tablet by mouth once daily Levothyroxine 125 mcg tablet Discontinued 125 ug PO DAILY April 09, 2019 12:00am January 17, 2023 10:08am thryoid thyroid Start: 02-18-2015 End: 04-09-2019 take 1 tablet by mouth once daily Levothyroxine 112 MCG tablet Discontinued 112 ug PO DAILY February 18, 2015 12:00am April 09, 2019 4:05pm magnesium oxide 400 mg oral tablet (6 sources) Start: 01-17-2023 take 1 tablet by mouth once daily Pen Needle, Diabetic (7 sources) Start: 05-01-2021 Pen Needle, Di abetic Active EACH .ROUTE .MEDSUPPLY April 30, 2021 11:00pm As directed Start: 05-01-2021 Pen Needle, Di abetic Active EACH .ROUTE .MEDSUPPLY 50 May 01, 2021 12:00am As directed ramipril 5 mg oral capsule (2 sources) Angiotensin Converting Enzyme Inhibitor Start: 02-28-2024 take 2 capsules by mouth once daily Completed/Discontinued Medications Medication Drug Class(es) Dates Sig (Normalized) Sig (Original) acetaminophen 325 mg / HYDROcodone bitartrate 5 mg oral tablet (2 sources) Opioid Agonist Start: 09-04-2023 End: 02-28-2024 Hydrocodone-Acetami nophen 5-325 mg tablet Discontinued 1 {tbl} PO EVERY 6 HOURS NEEDED as needed for Pain 12 3 0 September 04, 2023 February 28, 2024 10:40am Lumbar contusion Contusion of lower back and pelvis, initial encounter acetaminophen 325 mg / oxyCODONE hydrochloride 5 mg oral tablet (9 sources) Opioid Agonist Start: 07-14-2015 End: 12-12-2017 Oxycodone-Acetamino phen 1 TABLET tablet Discontinued 1 - 2 {tbl} PO EVERY 4 HOURS NEEDED as needed for Pain July 14, 2015 12:00am December 12, 2017 3:25pm Start: 07-14-2015 End: 12-12-2017 take 1 tablet by mouth every four hours as needed Oxycodone-Acetaminophen Discontinued 1 - 2 TABLET PO EVERY 4 HOURS NEEDED July 14, 2015 12:00am December 12, 2017 3:25pm amoxicillin 875 mg / clavulanate 125 mg oral tablet (18 sources) Penicillin-class Antibacterial Start: 05-02-2020 End: 05-12-2020 Amoxicillin-Pot Clavulanate (Augmentin) 875-125 mg tablet Discontinued 1 {tbl} PO Q12H 20 10 0 May 02, 2020 12:00am May 11, 2020 12:00am May 12, 2020 12:02am Acute sinusitis, unspecified Start: 06-01-2019 End: 10-18-2019 take 1 tablet by mouth every twelve hours Amoxicillin-Pot Clavulanate 875 MG tablet Discontinued 875 mg PO Q12H 14 0 June 01, 2019 12:00am October 18, 2019 5:10pm atorvastatin 80 mg oral tablet (20 sources) HMG-CoA Reductase Inhibitor Start: 02-18-2015 End: 05-02-2020 take 1 tablet by mouth at bedtime Atorvastatin 80 mg tablet Discontinued 80 mg PO AT BEDTIME 90 5 September 25, 2018 5:28pm May 02, 2020 5:10pm low cholesterol cephalexin 500 mg oral capsule (6 sources) Cephalosporin Antibacterial Start: 11-16-2022 End: 01-17-2023 take 1 capsule by mouth every twelve hours Cephalexin 500 mg capsule Discontinued 500 mg PO EVERY 12 HOURS 14 0 November 16, 2022 1:00am January 17, 2023 10:07am colchicine 0.6 mg oral capsule (9 sources) Start: 02-18-2015 End: 05-02-2020 take 1 tablet by mouth once as needed Colchicine 0.6 MG tablet Discontinued 0.6 mg PO ONE TIME as needed for tendinitis February 18, 2015 12:00am May 02, 2020 5:10pm ferrous sulfate 325 mg oral tablet (6 sources) Start: 01-17-2023 End: 04-16-2024 take 1 tablet by mouth once daily Ferrous Sulfate 325 mg (65 mg iron) tablet Discontinued 325 mg PO DAILY January 17, 2023 1:00am April 16, 2024 9:18am Ginkgo Biloba (9 sources) Start: 10-18-2019 End: 05-02-2020 take 1 tablet by mouth once daily Ginkgo Biloba 120 mg tablet Discontinued 240 mg PO DAILY October 18, 2019 1:00am May 02, 2020 5:10pm Start: 10-18-2019 End: 05-02-2020 take 240 mg by mouth once daily Ginkgo Biloba Discontinued 240 MG PO DAILY October 18, 2019 12:00am May 02, 2020 4:10pm Start: 10-18-2019 End: 05-02-2020 take 240 mg by mouth once daily Ginkgo Biloba Discontinued 240 MG PO DAILY October 18, 2019 1:00am May 02, 2020 5:10pm glucagon (rdna) 1 mg injection (9 sources) Antihypoglycemic Agent Start: 02-18-2015 End: 05-02-2020 inject 1 mg by intramuscular injection once as needed Glucagon 1 MG/ML syringe Discontinued 0.5 mg IM ONE TIME as needed for Hypoglycemia February 18, 2015 12:00am May 02, 2020 5:10pm Start: 02-18-2015 End: 05-02-2020 inject 0.5 mg by intramuscular injection once Glucagon Discontinued 0.5 MG IM ONE TIME February 18, 2015 12:00am May 02, 2020 5:10pm Grape Seed Extract (9 sources) Start: 02-18-2015 End: 05-02-2020 take 1 capsule by mouth once daily Grape Seed Extract 25 MG capsule Discontinued 25 mg PO DAILY February 18, 2015 12:00am May 02, 2020 5:11pm supplement to prevent neuropathy, anti oxidant Start: 02-18-2015 End: 05-02-2020 take 1 capsule by mouth once daily Grape Seed Extract 25 MG capsule Discontinued 25 mg PO DAILY February 18, 2015 12:00am May 02, 2020 5:11pm to prevent neuropathy, anti oxidant Start: 02-18-2015 End: 05-02-2020 take 25 mg by mouth once daily Grape Seed Extract Disc ontinued 25 MG PO DAILY February 17, 2015 11:00pm May 02, 2020 4:11pm to prevent neuropathy, anti oxidant Start: 02-18-2015 End: 05-02-2020 take 25 mg by mouth once daily Grape Seed Extract Disc ontinued 25 MG PO DAILY February 18, 2015 12:00am May 02, 2020 5:11pm to prevent neuropathy, anti oxidant 12 hr guaiFENesin 1200 mg extended release oral tablet (9 sources) Start: 06-01-2019 End: 10-18-2019 take 1 tablet by mouth twice daily Guaifenesin 1,200 MG tablet Discontinued 1200 mg PO TWICE A DAY 20 0 June 01, 2019 12:00am October 18, 2019 5:10pm insulin aspart, human 100 unt/ml injectable solution (20 sources) Insulin Analog Start: 01-09-2025 End: 08-12-2025 Insulin Aspart U-100 (Novolog U-100 Insulin Aspart) 100 unit/mL solution Discontinued 100 U continuous subcutaneous infusion .continuous 90 1 August 12, 2025 12:54pm August 12, 2025 3:30pm Type 1 diabetes mellitus Type 1 diabetes mellitus with hyperglycemia Start: 02-28-2024 End: 01-09-2025 Insulin Aspart U-100 (Novolo g Flexpen U-100 Insulin) 100 unit/mL (3 mL) insulin pen Discontinued 10 U SC THREE TIMES A DAY 15 December 11, 2024 1:00am January 09, 2025 6:09pm Start: 12-12-2017 End: 02-28-2024 Insulin Aspart U-100 (Novolo g U-100 Insulin Aspart) 100 unit/mL solution Discontinued 0 SC THREE TIMES A DAY December 12, 2017 1:00am February 28, 2024 11:04am diabetes per sliding scale SC TID, 1 unit per 5 carbs, breakfast and lunch only Start: 12-12-2017 Insulin Aspart U-100 (Novolog U-100 Insulin Aspart) 100 unit/mL solution Active 0 SC THREE TIMES A DAY December 12, 2017 1:00am per sliding scale SC TID, 1 unit per 5 carbs, breakfast and lunch only Start: 02-18-2015 End: 12-12-2017 Insulin Aspart U-100 100 UNI TS/ML insulin pen Discontinued U SC 3 TIMES DAILY WITH MEALS February 18, 2015 12:00am December 12, 2017 3:23pm Start: 02-18-2015 End: 12-12-2017 Insulin Aspart U-100 Discont inued UNITS SC 3 TIMES DAILY WITH MEALS February 18, 2015 12:00am December 12, 2017 3:23pm 3 ml insulin degludec 100 unt/ml pen injector (20 sources) Insulin Analog Start: 02-28-2024 End: 03-26-2025 Insulin Degludec (Tresiba Flextouch U-100) 100 unit/mL (3 mL) insulin pen Discontinued 20 U SC AT BEDTIME 18 3 December 06, 2024 11:00am March 26, 2025 9:03am Start: 03-31-2023 End: 02-28-2024 Insulin Degludec (Tresiba U- 100 Insulin) 100 unit/mL solution Discontinued 22 U SC DAILY March 31, 2023 9:46am February 28, 2024 11:12am Start: 12-13-2019 End: 03-31-2023 Insulin Degludec (Tresiba U- 100 Insulin) 100 unit/mL solution Discontinued 28 U SC DAILY 10 6 June 24, 2021 3:25pm March 31, 2023 9:47am Start: 10-18-2019 End: 12-13-2019 Insulin Degludec 200 unit/mL (3 mL) insulin pen Discontinued 34 U SC DAILY October 18, 2019 5:10pm December 13, 2019 10:35am Check with primary doctor diabetes Take this in the AM Start: 06-01-2019 End: 10-18-2019 Insulin Degludec 200 UNIT/ML insulin pen Discontinued 30 U SQ DAILY 0 0 June 01, 2019 12:14pm October 18, 2019 5:12pm Check with primary doctor diabetes Take this in the AM Start: 08-11-2018 End: 06-01-2019 Insulin Degludec 200 UNIT/ML insulin pen Discontinued 40 U SQ DAILY August 11, 2018 12:00am June 01, 2019 12:14pm Check with primary doctor diabetes 24 hr isosorbide mononitrate 30 mg extended release oral tablet (20 sources) Nitrate Vasodilator Start: 07-08-2020 End: 12-06-2024 take 1 tablet by mouth once daily, then take 1 tablet by mouth every twenty-four hours Isosorbide Mononitrate 30 mg tablet extended release 24 hr Discontinued 30 mg PO DAILY 90 3 March 07, 2023 10:24am April 16, 2024 9:37am NEEDS SCRIPTTALK LABELS: patient is blind Start: 04-09-2019 End: 05-02-2020 take 1 tablet by mouth once daily in the morning, then take 1 tablet by mouth every twenty-four hours Isosorbide Mononitrate 30 mg tablet extended release 24 hr Discontinued 30 mg PO EVERY MORNING 90 3 November 19, 2019 9:27am May 02, 2020 5:11pm heart heart Start: 08-11-2018 End: 03-13-2019 take 1 tablet by mouth once daily, then take 1 tablet by mouth every twenty-four hours Isosorbide Mononitrate 30 mg tablet extended release 24 hr Discontinued 30 mg PO DAILY 90 30 3 November 13, 2018 5:29pm March 12, 2019 12:00am March 13, 2019 12:09am linagliptin 5 mg oral tablet (9 sources) Dipeptidyl Peptidase 4 Inhibitor Start: 12-12-2017 End: 10-18-2019 take 1 tablet by mouth once daily Linagliptin (Tradjenta) 5 mg tablet Discontinued 5 mg PO DAILY December 12, 2017 1:00am October 18, 2019 5:11pm diabetes blood sugar managament lisinopril 10 mg oral tablet (20 sources) Angiotensin Converting Enzyme Inhibitor Start: 01-17-2023 End: 02-28-2024 take 1 tablet by mouth once daily Lisinopril 10 mg tablet Discontinued 10 mg PO DAILY January 17, 2023 1:00am February 28, 2024 10:41am Start: 05-10-2018 End: 01-17-2023 take 1 tablet by mouth once daily Lisinopril 2.5 mg tablet Discontinued 2.5 mg PO DAILY 90 3 December 18, 2021 4:23pm January 17, 2023 10:08am NEEDS SCRIPTTALK LABELS: patient is blind blood pressure Start: 12-16-2017 End: 05-10-2018 take 2.5 mg by mouth once daily Lisinopril 5 mg tablet Discontinued 2.5 mg PO DAILY 90 3 May 10, 2018 8:13am May 10, 2018 8:15am Start: 12-16-2017 End: 05-10-2018 take 2.5 mg by mouth once daily Lisinopril Discontinue d 2.5 MG PO DAILY 90 May 10, 2018 8:13am May 10, 2018 8:15am Start: 02-18-2015 End: 12-16-2017 take 1 tablet by mouth once daily Lisinopril 5 MG tablet Discontinued 5 mg PO DAILY February 18, 2015 12:00am December 16, 2017 9:15am Magnesium (9 sources) Start: 02-18-2015 End: 05-02-2020 take 2 tablets by mouth once daily Magnesium 250 MG tablet Discontinued 500 mg PO DAILY February 18, 2015 12:00am May 02, 2020 5:11pm supplement general wellness Start: 02-18-2015 End: 05-02-2020 take 2 tablets by mouth once daily Magnesium 250 MG tablet Discontinued 500 mg PO DAILY February 18, 2015 12:00am May 02, 2020 5:11pm general wellness Start: 02-18-2015 End: 05-02-2020 take 500 mg by mouth once daily Magnesium Discontinued 500 MG PO DAILY February 17, 2015 11:00pm May 02, 2020 4:11pm general wellness Start: 02-18-2015 End: 05-02-2020 take 500 mg by mouth once daily Magnesium Discontinued 500 MG PO DAILY February 18, 2015 12:00am May 02, 2020 5:11pm general wellness nitroglycerin 0.4 mg sublingual tablet (20 sources) Nitrate Vasodilator Start: 10-27-2021 End: 01-17-2023 Nitroglycerin 0.4 mg tablet, sublingual Discontinued 0.4 mg SL Q5M as needed for chest pain 22 12October 27, 2021 5:09pm January 17, 2023 10:25am do not exceed 3 doses per episode Start: 10-27-2021 End: 01-17-2023 Nitroglycerin Discontinued 0 .4 MG SL Q5M October 27, 2021 5:09pm January 17, 2023 10:25am do not exceed 3 doses per episode Start: 02-18-2015 End: 05-02-2020 Nitroglycerin 0.4 mg tablet, sublingual Discontinued 0.4 mg SL Q5M as needed for Chest Pain 22 12November 13, 2018 5:29pm May 02, 2020 5:11pm Start: 02-18-2015 End: 05-02-2020 Nitroglycerin Discontinued 0 .4 MG SL Q5M November 13, 2018 5:29pm May 02, 2020 5:11pm norethindrone 0.35 mg oral tablet (9 sources) Start: 02-18-2015 End: 05-02-2020 take 1 tablet by mouth once daily Norethindrone (Contraceptive) 0.35 MG tablet Discontinued 1 {tbl} PO DAILY February 18, 2015 12:00am May 02, 2020 5:11pm supplement hormone control Start: 02-18-2015 End: 05-02-2020 take 1 tablet by mouth once daily Norethindrone (Contraceptive) Discontinued 1 TABLET PO DAILY February 17, 2015 11:00pm May 02, 2020 4:11pm hormone control Start: 02-18-2015 End: 05-02-2020 take 1 tablet by mouth once daily Norethindrone (Contraceptive) Discontinued 1 TABLET PO DAILY February 18, 2015 12:00am May 02, 2020 5:11pm hormone control omeprazole 20 mg delayed release oral capsule (20 sources) Proton Pump Inhibitor Start: 10-31-2020 End: 03-26-2025 take 1 capsule by mouth once daily Omeprazole 20 mg capsule,delayed release(DR/EC) Discontinued 20 mg PO DAILY October 31, 2020 1:00am March 26, 2025 9:23am Start: 04-09-2019 End: 05-02-2020 Omeprazole 20 mg capsule,del ayed release(DR/EC) Discontinued 20 mg PO .PRN April 09, 2019 4:30pm May 02, 2020 5:11pm reflux GERD Start: 09-13-2018 End: 04-09-2019 take 1 capsule by mouth twice daily Omeprazole 20 mg capsule,delayed release(DR/EC) Discontinued 20 mg PO TWICE A DAY September 13, 2018 12:00am April 09, 2019 4:31pm pitavastatin calcium 4 mg oral tablet (2 sources) HMG-CoA Reductase Inhibitor Start: 04-16-2024 End: 07-10-2024 take 1 tablet by mouth once daily Pitavastatin Calcium 4 mg tablet Discontinued 4 mg PO daily April 16, 2024 12:00am July 10, 2024 9:38am Potassium, Sodium Phosphates (7 sources) Start: 06-01-2019 End: 10-18-2019 Potassium, Sodium Phosphates Discontinued 1 PACKET PO THREE TIMES A DAY May 31, 2019 11:00pm October 18, 2019 4:11pm Start: 06-01-2019 End: 10-18-2019 Potassium, Sodium Phosphates Discontinued 1 PACKET PO THREE TIMES A DAY June 01, 2019 12:00am October 18, 2019 5:11pm Potassium, Sodium Phosphates 1 PACKET packet (2 sources) Start: 06-01-2019 End: 10-18-2019 take 1 dose by mouth three times daily Potassium, Sodium Phosphates 1 PACKET packet Discontinued 1 NMA PO THREE TIMES A DAY 6 0 June 01, 2019 12:00am October 18, 2019 5:11pm Start: 06-01-2019 End: 10-18-2019 take 1 dose by mouth three times daily Potassium, Sodium Phosphates 1 PACKET packet Discontinued 1 NMA PO THREE TIMES A DAY 6 June 01, 2019 12:00am October 18, 2019 5:11pm pravastatin sodium 80 mg oral tablet (18 sources) HMG-CoA Reductase Inhibitor Start: 07-08-2020 End: 07-05-2023 take 1 tablet by mouth once daily Pravastatin 80 mg tablet Discontinued 80 mg PO DAILY 90 July 08, 2020 5:04pm July 05, 2023 9:34am rosuvastatin calcium 10 mg oral tablet (5 sources) HMG-CoA Reductase Inhibitor Start: 07-05-2023 End: 04-16-2024 take 1 tablet by mouth once daily Rosuvastatin 10 mg tablet Discontinued 10 mg PO DAILY 90 3 July 05, 2023 12:00am April 16, 2024 9:17am Problems Active Problems Problem Classification Problem Date Documented Da te Episodic/Chronic Aspiration pneumonitis; food/vomitus (9 sources) Aspiration pneumonia; Translations: [Pneumonitis due to inhalation of food and vomit] 05-30-2019 Episodic Chronic kidney disease (14 sources) Chronic renal failure; Translations: [Chronic renal failure, stage 3 (moderate)] Onset: 03-26-2025 05-01-2021 Chronic Chronic kidney disease (1 source) Chronic kidney disease; Translations: [Chronic kidney disease, stage 3b] Onset: 01-16-2025 Coronary atherosclerosis and other heart disease (20 sources) Old myocardial infarction; Translations: [Old myocardial infarction] Onset: 03-26-2025 10-16-2019 Chronic Comment on above: angioplasty to LAD; no stent @ [facility] 11/08/13; PTCA/MARCUS to mid RCA; angioplasty of prox PDA @ [facility] 01/23/14 Diabetes mellitus with complications (19 sources) Hypoglycemic disorder; Translations: [Type 2 diabetes mellitus with hypoglycemia without coma] Onset: 03-26-2025 05-30-2019 Chronic Diabetes mellitus without complication (16 sources) Type 1 diabetes mellitus; Translations: [Type 1 diabetes mellitus without complications] Chronic Disorders of lipid metabolism (19 sources) Mixed hyperlipidemia; Translations: [Mixed hyperlipidemia] Chronic Essential hypertension (20 sources) Essential hypertension; Translations: [Essential (primary) hypertension] Onset: 03-26-2025 Chronic Fluid and electrolyte disorders (9 sources) Metabolic acidosis; Translations: [Acidosis] 05-30-2019 Episodic Heart valve disorders (10 sources) Heart murmur; Translations: [Cardiac murmur, unspecified] Episodic Other nutritional; endocrine; and metabolic disorders (9 sources) Obesity; Translations: [Obesity, unspecified] 11-07-2020 Chronic Other nutritional; endocrine; and metabolic disorders (6 sources) Obesity, unspecified; Translations: [Obesity, unspecified] Chronic Kristel-; endo-; and myocarditis; cardiomyopathy (except that caused by tuberculosis or sexually transmitted disease) (9 sources) Pericarditis; Translations: [Disease of pericardium, unspecified] 05-30-2019 Episodic Respiratory failure; insufficiency; arrest (adult) (9 sources) Acute respiratory failure; Translations: [Acute respiratory failure, unspecified whether with hypoxia or hypercapnia] 05-30-2019 Episodic Superficial injury; contusion (20 sources) Cat scratch injury; Translations: [Abrasion of right hand, initial encounter] 01-04-2023 Episodic Syncope (9 sources) Syncope and collapse; Translations: [Syncope and collapse] 05-30-2019 Episodic Comment on above: due to hypoglycemia Thyroid disorders (19 sources) Hypothyroidism; Translations: [Hypothyroidism, unspecified] Onset: 03-26-2025 Chronic Viral infection (9 sources) Disease caused by 2019-nCoV; Translations: [COVID-19] 01-04-2023 Episodic Past or Other Problems Problem Classification Problem Date Documented Da te Episodic/Chronic Coronary atherosclerosis and other heart disease (12 sources) Stented coronary artery; Translations: [Presence of coronary angioplasty implant and graft] Onset: 12-29-2013 Episodic Comment on above: PTCA/MARCUS to mid RCA; angioplasty of prox PDA 01/23/[address] Glenn Merino at [facility] Diabetes mellitus without complication (2 sources) Insulin pump present; Translations: [Presence of insulin pump (external) (internal)] Onset: 03-26-2025 03-26-2025 Episodic Other screening for suspected conditions (not mental disorders or infectious disease) (1 source) Encounter for screening mammogram for malignant neoplasm of breast; Translations: [Encounter for screening mammogram for malignant neoplasm of breast] Onset: 02-13-2025 Episodic Results Test Name Value Interpretation Reference Range Facility Anion gap in Serum or Plasma Ordered By: Danyel Mendez on 07-31-2025 Anion gap [Moles/Vol] 12 mmol/L 5-15 [facility] BUN/creatinine ratioOrdered By: Danyel Mendez on 07-31-2025 Urea nitrogen/Creatinine [Mass ratio] 22.4 mg/mg High 10-20 [facility] Basic Metabolic Profile (BMP )on 07-31-2025 BUN Normal 4-19 [facility] Comment on above: Order Comment: Order Date: 09/04/24 Order Info: 0667-1 - BMP Order Date: 07/13/24 Order Info: 0786-1 - CMP Order Info: [id number] - LIPID Result Comment: EXPI RED ORDERS Performed By: #### L 500.2500 #### [facility] [address] [place], [place], [address] BUN/CRE Normal - [facility] Comment on above: Order Comment: Order Date: 09/04/24 Order Info: 67- - BMP Order Date: 07/13/24 Order Info: [id number] - CMP Order Info: [id number] - LIPID Result Comment: EXPI RED ORDERS Performed By: #### L 500.2500 #### [facility] [address] [place], [address] Calcium Normal 7.6-11.0 [facility] Comment on above: Order Comment: Order Date: 09/04/24 Order Info: [id number] - BMP Order Date: 07/13/24 Order Info: 0786-1 - CMP Order Info: [id number] - LIPID Result Comment: EXPI RED ORDERS Performed By: #### L 500.2500 #### [facility] [address] [place], [address] CL Normal 98-108 [facility] Comment on above: Order Comment: Order Date: 09/04/24 Order Info: 666- - BMP Order Date: 07/13/24 Order Info: [id number] - CMP Order Info: [id number] - LIPID Result Comment: EXPI RED ORDERS Performed By: #### L 500.2500 #### [facility] [address] [place], [place], [address] CO2 Normal 21.0-32.0 [facility] Comment on above: Order Comment: Order Date: 09/04/24 Order Info: 666- - BMP Order Date: 07/13/24 Order Info: 86-1 - CMP Order Info: [id number] - LIPID Result Comment: EXPI RED ORDERS Performed By: #### L 500.2500 #### [facility] [address] [place], [address] CREAT,SERUM Normal 0.70-1.20 [facility] Comment on above: Order Comment: Order Date: 09/04/24 Order Info: 666- - BMP Order Date: 07/13/24 Order Info: 785- - CMP Order Info: [id number] - LIPID Result Comment: EXPI RED ORDERS Performed By: #### L 500.2500 #### [facility] [address] [place], [address] eGFR Normal >60 [facility] Comment on above: Order Comment: Order Date: 09/04/24 Order Info: 666-11 - BMP Order Date: 07/13/24 Order Info: 785-1 - CMP Order Info: [id number] - LIPID Result Comment: EXPI RED ORDERS Performed By: #### L 500.2500 #### [facility] [address] [place], [address] GAP Normal 5-15 [facility] Comment on above: Order Comment: Order Date: 09/04/24 Order Info: 666- - BMP Order Date: 07/13/24 Order Info: [id number] - CMP Order Info: [id number] - LIPID Result Comment: EXPI RED ORDERS Performed By: #### L 500.2500 #### [facility] [address] [place] [place], [address] GLU Normal 70-99 [facility] Comment on above: Order Comment: Order Date: 09/04/24 Order Info: [id number] - BMP Order Date: 07/13/24 Order Info: 0786-1 - CMP Order Info: [id number] - LIPID Result Comment: EXPI RED ORDERS Performed By: #### L 500.2500 #### [facility] [address] [place], [address] Potassium Normal 3.3-5.1 [facility] Comment on above: Order Comment: Order Date: 09/04/24 Order Info: 666- - BMP Order Date: 07/13/24 Order Info: 785-1 - CMP Order Info: [id number] - LIPID Result Comment: EXPI RED ORDERS Performed By: #### L 500.2500 #### [facility] [address] [place], [address] Basic Metabolic Profile (BMP) Normal 133-145 [facility] Comment on above: Order Comment: Order Date: 09/04/24 Order Info: 666- - BMP Order Date: 07/13/24 Order Info: 86-1 - CMP Order Info: [id number] - LIPID Result Comment: EXPI RED ORDERS Performed By: #### L 500.2500 #### [facility] [address] [place], [address] CBC-Complete Blood Cnt No Di ffon 07-31-2025 Erythrocyte distribution width (RBC) [Ratio] 13.5 % Normal 11.6-14.6 [facility] Comment on above: Performed By: #### L 506.1001, L100.0500, L500.3600, L509.1000, L501.0900 ####[facility] [address] [place], [address] Hematocrit (Bld) [Volume fraction] 39.6 % Normal 37-47 [facility] Comment on above: Performed By: #### L 506.1001, L100.0500, L500.3600, L509.1000, L501.0900 ####[facility] [address] [place], [address] Hemoglobin (Bld) [Mass/Vol] 13.1 g/dL Normal 12.0-15. 0 [facility] Comment on above: Performed By: #### L 506.1001, L100.0500, L500.3600, L509.1000, L501.0900 ####[facility] [address] [place], [address] MCH (RBC) [Entitic mass] 29.4 pg Normal 27.0-32.0 [facility] Comment on above: Performed By: #### L 506.1001, L100.0500, L500.3600, L509.1000, L501.0900 ####[facility] [address] [place], [address] MCHC (RBC) [Mass/Vol] 33.1 g/dL Normal 32-36 [facility] Comment on above: Performed By: #### L 506.1001, L100.0500, L500.3600, L509.1000, L501.0900 ####[facility] [address] [place], [address] MCV (RBC) [Entitic vol] 88.8 fL Normal 81-99 [facility] Comment on above: Performed By: #### L 506.1001, L100.0500, L500.3600, L509.1000, L501.0900 ####[facility] [address] [place], [address] Platelet mean volume (Bld) [Entitic vol] 11.2 fL Normal 6.2-12.0 [facility] Comment on above: Performed By: #### L 506.1001, L100.0500, L500.3600, L509.1000, L501.0900 ####[facility] [address] [place], [address] Platelets (Bld) [#/Vol] 269 10*3/uL Normal 150-450 [facility] Comment on above: Performed By: #### L 506.1001, L100.0500, L500.3600, L509.1000, L501.0900 ####[facility] [address] [place], [address] RBC (Bld) [#/Vol] 4.46 10*6/uL Normal 4.2-5.4 [facility] Comment on above: Performed By: #### L 506.1001, L100.0500, L500.3600, L509.1000, L501.0900 ####[facility] [address] [place], [address] RDW SD 44.1 fl High 35.1-43.9 [facility] Comment on above: Performed By: #### L 506.1001, L100.0500, L500.3600, L509.1000, L501.0900 ####[facility] [address] [place], [address] WBC (Bld) [#/Vol] 6.2 10*3/uL Normal 4.4-11.0 [facility] Comment on above: Performed By: #### L 506.1001, L100.0500, L500.3600, L509.1000, L501.0900 ####[facility] [address] [place], [address] Carbon dioxide, total [Moles /volume] in Central venous bloodOrdered By: Danyel Mendez on 07-31-2025 CO2 [Moles/Vol] 19.7 mmol/L Low 21.0-32.0 [facility] Chloride assayOrdered By: Thang Mendez on 07-31-2025 Chloride [Moles/Vol] 108 mmol/L 98-108 [facility] Erythrocyte distribution wid th ratioOrdered By: Danyel Mendez on 07-31-2025 Erythrocyte distribution width (RBC) [Ratio] 13.5 % 11.6-14.6 [facility] Erythrocyte distribution wid th standard deviationOrdered By: Danyel Mendez on 07-31-2025 Erythrocyte distribution width (RBC) [Ratio] 44.1 fl High 35.1-43.9 [facility] Glomerular filtration rate ( GFR) estimation/1.73 sq m using serum, plasma, or whole bOrdered By: Danyel Mendez on 07-31-2025 GFR/1.73 sq M.predicted among non-blacks MDRD (S/P/Bld) [Vol rate/Area] 34 mL/min/{1.73_m2} Low >60 [facility] Comment on above: mL/min/1.73m2 CKD-EP I Creatinine Equation (2020) Hematocrit Auto (Bld) [Volum e fraction]Ordered By: Danyel Mendez on 07-31-2025 Hematocrit (Bld) [Volume fraction] 39.6 % 37-47 [facility] Hemoglobin measurementOrdere d By: Danyel Mendez on 07-31-2025 Hemoglobin (Bld) [Mass/Vol] 13.1 g/dL 12.0-15. 0 [facility] Lipid Profileon 07-31-2025 CHOL Normal <=200 [facility] Comment on above: Order Comment: Order Date: 09/04/24 Order Info: [id number] - BMP Order Date: 07/13/24 Order Info: 0786-1 - CMP Order Info: [id number] - LIPID Result Comment: EXPI RED ORDERS Performed By: #### L 500.4100 #### [facility] [address] [place], [place], [address] CHOL:HDL Normal [facility] Comment on above: Order Comment: Order Date: 09/04/24 Order Info: 0667-1 - BMP Order Date: 07/13/24 Order Info: 0786-1 - CMP Order Info: [id number] - LIPID Result Comment: EXPI RED ORDERS Performed By: #### L 500.4100 #### [facility] [address] [place], [address] CLDL Normal [facility] Comment on above: Order Comment: Order Date: 09/04/24 Order Info: 666-1 - BMP Order Date: 07/13/24 Order Info: 0786-1 - CMP Order Info: [id number] - LIPID Result Comment: EXPI RED ORDERS Performed By: #### L 500.4100 #### [facility] [address] [place], [address] HDL Normal [facility] Comment on above: Order Comment: Order Date: 09/04/24 Order Info: 666- - BMP Order Date: 07/13/24 Order Info: 0786-1 - CMP Order Info: [id number] - LIPID Result Comment: EXPI RED ORDERS Performed By: #### L 500.4100 #### [facility] [address] [place], [address] TRIG Normal [facility] Comment on above: Order Comment: Order Date: 09/04/24 Order Info: 666- - BMP Order Date: 07/13/24 Order Info: 785- - CMP Order Info: [id number] - LIPID Result Comment: EXPI RED ORDERS Performed By: #### L 500.4100 #### [facility] [address] [place], [address] VLDL Normal 5-40 [facility] Comment on above: Order Comment: Order Date: 09/04/24 Order Info: 666- - BMP Order Date: 07/13/24 Order Info: 0786-1 - CMP Order Info: [id number] - LIPID Result Comment: EXPI RED ORDERS Performed By: #### L 500.4100 #### [facility] [address] [place], [address] Liver Profileon 07-31-2025 ALB Normal 3.5-5.0 [facility] Comment on above: Order Comment: Order Date: 09/04/24 Order Info: 666-1 - BMP Order Date: 07/13/24 Order Info: [id number] - CMP Order Info: - LIPID Result Comment: EXPI RED ORDERS Performed By: #### L 500.3400 #### [facility] [address] [place], [address] ALK PHOS Normal 35-104 [facility] Comment on above: Order Comment: Order Date: 09/04/24 Order Info: 666-11 - BMP Order Date: 07/13/24 Order Info: [id number] - CMP Order Info: - LIPID Result Comment: EXPI RED ORDERS Performed By: #### L 500.3400 #### [facility] [address] [place], [address] ALT Normal <=34 [facility] Comment on above: Order Comment: Order Date: 09/04/24 Order Info: 666-11 - BMP Order Date: 07/13/24 Order Info: [id number] - CMP Order Info: - LIPID Result Comment: EXPI RED ORDERS Performed By: #### L 500.3400 #### [facility] [address] [place], [address] AST Normal <=31 [facility] Comment on above: Order Comment: Order Date: 09/04/24 Order Info: 666-11 - BMP Order Date: 07/13/24 Order Info: [id number] - CMP Order Info: - LIPID Result Comment: EXPI RED ORDERS Performed By: #### L 500.3400 #### [facility] [address] [place], [address] D BILI Normal 0.00-0.30 [facility] Comment on above: Order Comment: Order Date: 09/04/24 Order Info: 666-11 - BMP Order Date: 07/13/24 Order Info: 785-11 - CMP Order Info: - LIPID Result Comment: EXPI RED ORDERS Performed By: #### L 500.3400 #### [facility] [address] [place], [place], [address] T BILI Normal 0.00-1.30 [facility] Comment on above: Order Comment: Order Date: 09/04/24 Order Info: [id number] - BMP Order Date: 07/13/24 Order Info: 0786-1 - CMP Order Info: [id number] - LIPID Result Comment: EXPI RED ORDERS Performed By: #### L 500.3400 #### [facility] [address] [place], [address] T PROT Normal 5.9-8.4 [facility] Comment on above: Order Comment: Order Date: 09/04/24 Order Info: [id number] - BMP Order Date: 07/13/24 Order Info: 0786-1 - CMP Order Info: [id number] - LIPID Result Comment: EXPI RED ORDERS Performed By: #### L 500.3400 #### [facility] [address] [place], [address] MCV (mean corpuscular volume ) determinationOrdered By: Danyel Mendez on 07-31-2025 MCV (RBC) [Entitic vol] 88.8 fL 81-99 [facility] Mean corpuscular hemoglobin (MCH) determinationOrdered By: Danyel Mendez on 07-31-2025 MCH (RBC) [Entitic mass] 29.4 pg 27.0-32.0 [facility] Mean corpuscular hemoglobin concentration (MCHC) determinationOrdered By: Danyel Mendez on 07-31-2025 MCHC (RBC) [Mass/Vol] 33.1 g/dL 32-36 [facility] Mean platelet volume determi nationOrdered By: Danyel Mendez on 07-31-2025 Platelet mean volume (Bld) [Entitic vol] 11.2 fL 6.2-12.0 [facility] PTHINon 07-31-2025 PTH 76 pg/mL High 11-61 [facility] Comment on above: Performed By: #### L 506.1001, L100.0500, L500.3600, L509.1000, L501.0900 ####[facility] [address] [place], [address] Platelet countOrdered By: Thang Mendez on 07-31-2025 Platelets (Bld) [#/Vol] 269 10*3/uL 150-450 [facility] Potassium measurement (mass/ volume)Ordered By: Danyel Mendez on 07-31-2025 Potassium (Unsp spec) [Mass/Vol] 4.4 mmol/L 3.3-5.1 [facility] Protein+Creatinine Ratio,Uri neon 07-31-2025 PROT:CRE RATIO 80 mg/g CRE Normal 0-200 [facility] Comment on above: Performed By: #### L 506.1001, L100.0500, L500.3600, L509.1000, L501.0900 ####[facility] [address] [facility] [place], [address] Protein (U) [Mass/Vol] 10.3 mg/dL Normal 0.0-12.0 [facility] Comment on above: Performed By: #### L 506.1001, L100.0500, L500.3600, L509.1000, L501.0900 ####[facility] [address] [place], [address] RBC Auto (Bld) [#/Vol]Ordere d By: Danyel Mendez on 07-31-2025 RBC (Bld) [#/Vol] 4.46 10*6/uL 4.2-5.4 [facility] Random urine creatinine buck urement (mass/volume)Ordered By: Danyel Mendez on 07-31-2025 Creatinine Unsp time (U) [Mass/Vol] 129.00 mg/dL 28.00-217.0 0 [facility] Renal Profileon 07-31-2025 Albumin [Mass/Vol] 3.9 g/dL Normal 3.5-5.0 [facility] Comment on above: Performed By: #### L 506.1001, L100.0500, L500.3600, L509.1000, L501.0900 ####[facility] [address] [place], [address] BUN/CRE 22.4 RATIO High 10-20 [facility] Comment on above: Performed By: #### L 506.1001, L100.0500, L500.3600, L509.1000, L501.0900 ####[facility] [address] [place], [address] Calcium [Mass/Vol] 9.5 mg/dL Normal 7.6-11.0 [facility] Comment on above: Performed By: #### L 506.1001, L100.0500, L500.3600, L509.1000, L501.0900 ####[facility] [address] [place], [address] Chloride [Moles/Vol] 108 mmol/L Normal 98-108 [facility] Comment on above: Performed By: #### L 506.1001, L100.0500, L500.3600, L509.1000, L501.0900 ####[facility] [address] [place], [address] CO2 [Moles/Vol] 19.7 mmol/L Low 21.0-32.0 [facility] Comment on above: Performed By: #### L 506.1001, L100.0500, L500.3600, L509.1000, L501.0900 ####[facility] [address] [place], [address] Creatinine [Mass/Vol] 1.77 mg/dL High 0.70-1.20 [facility] Comment on above: Performed By: #### L 506.1001, L100.0500, L500.3600, L509.1000, L501.0900 ####[facility] [address] [place], [address] GAP 12 Normal 5-15 [facility] Comment on above: Performed By: #### L 506.1001, L100.0500, L500.3600, L509.1000, L501.0900 ####[facility] [address] [place], [address] GFR/1.73 sq M.predicted among non-blacks MDRD (S/P/Bld) [Vol rate/Area] 34 mL/min/{1.73_m2} Low >60 [facility] Comment on above: Result Comment: mL/m in/1.73m2 CKD-EPI Creatinine Equation (2020) Performed By: #### L 506.1001, L100.0500, L500.3600, L509.1000, L501.0900 ####[facility] [address] [place], [address] Glucose [Mass/Vol] 88 mg/dL Normal 70-99 [facility] Comment on above: Performed By: #### L 506.1001, L100.0500, L500.3600, L509.1000, L501.0900 ####[facility] [address] [place], [address] Phosphate [Mass/Vol] 3.8 mg/dL Normal 2.7-4.5 [facility] Comment on above: Performed By: #### L 506.1001, L100.0500, L500.3600, L509.1000, L501.0900 ####[facility] [address] [place], [address] Potassium [Moles/Vol] 4.4 mmol/L Normal 3.3-5.1 [facility] Comment on above: Performed By: #### L 506.1001, L100.0500, L500.3600, L509.1000, L501.0900 ####[facility] [address] [place], [address] Sodium [Moles/Vol] 139 mmol/L Normal 133-145 [facility] Comment on above: Performed By: #### L 506.1001, L100.0500, L500.3600, L509.1000, L501.0900 ####[facility] [address] [place], [address] Urea nitrogen [Mass/Vol] 40 mg/dL High 4-19 [facility] Comment on above: Performed By: #### L 506.1001, L100.0500, L500.3600, L509.1000, L501.0900 ####[facility] [address] [place], [place], [address] Serum creatinine measurement (mass/volume)Ordered By: Danyel Mendez on 07-31-2025 Creatinine [Mass/Vol] 1.77 mg/dL High 0.70-1.20 [facility] Serum glucose measurement (m ass/volume)Ordered By: Danyel Mendez on 07-31-2025 Glucose [Mass/Vol] 88 mg/dL 70-99 [facility] Serum or plasma albumin buck urement (mass/volume)Ordered By: Danyel Mendez on 07-31-2025 Albumin [Mass/Vol] 3.9 g/dL 3.5-5.0 [facility] Serum or plasma calcium buck urement (mass/volume)Ordered By: Danyel Mendez on 07-31-2025 Calcium [Mass/Vol] 9.5 mg/dL 7.6-11.0 [facility] Serum or plasma urea nitroge n measurement (mass/volume)Ordered By: Danyel Mendez on 07-31-2025 Urea nitrogen [Mass/Vol] 40 mg/dL High -19 [facility] Sodium levelOrdered By: Danyel Mendez on 07-31-2025 Sodium [Moles/Vol] 139 mmol/L 133-145 [facility] TSH DL <= 0.005 mIU/L QnOrde red By: Danyel Mendez on 07-31-2025 TSH Qn 0.240 uIU/mL Low 0.300-4.200 [facility] Thyroid Stim Hormone (TSH)on 07-31-2025 TSH 0.240 uIU/mL Low 0.300-4.200 [facility] Comment on above: Order Comment: PT ON LY WANTED TSH Performed By: #### L 501.9520 #### [facility] [address] [place], [place], [address] Urine protein measurement (m ass/volume)Ordered By: Danyel Mendez on 07-31-2025 Protein (U) [Mass/Vol] 10.3 mg/dL 0.0-12.0 [facility] Urine protein/creatinine mas s ratioOrdered By: Danyel Mendez on 07-31-2025 Protein/Creatinine (U) [Mass ratio] 80 mg/g CRE 0-200 [facility] Vitamin D,25 Hydroxyon 07-31 Vitamin D 25-OH 38.0 ng/mL Normal 30-100 [facility] Comment on above: Result Comment: Carolin min D Status Deficiency: <20 ng/mL (50nmol/L) Insufficiency: 20-30 ng/mL (50-75 nmol/L) Sufficiency: 30-100 ng/mL (75-250 nmol/L) Toxicity: >100 ng/mL (>250 nmol/L) Performed By: #### L 506.1001, L100.0500, L500.3600, L509.1000, L501.0900 ####[facility] [address] [place], [place], [address] White blood cell (WBC) count Ordered By: Danyel Mendez on 07-31-2025 WBC (Bld) [#/Vol] 6.2 10*3/uL 4.4-11.0 [facility] Endocrinology Visit Reporton 03-26-2025 Endocrinology Visit Report [facility] [address] [facility] [address] [place], [place] [address] OFFICE VISIT Date of Service: 03/26/25 MR#: [id number] Acct: [id number] Name: LAURA DANG Rep #: [id number] : 1970 Provider: Tomasz Cruz Age/Sex: 54/F Location: [facility] Status: Signed Intake Vital Signs 12/06/24 09:35 03/26/25 08:58 Height 5 ft 9 in 5 ft 9 in Weight: 197 lb 6 oz 194 lb BMI 29.1 28.6 BP 153/85 H 134/76 H Blood Pressure Location Lt brachial Lt brachial Position Sitting Sitting Pulse 72 83 Pulse Source Monitor Monitor Pulse Oximetry (%) 97 97 Oxygen Delivery Method room air room air Intake Visit Reasons: 4 M FU Chief Complaint: Diabetes Allergies adhesive tape Allergy (Severe, Verified 03/26/25 09:02) Unknown latex Allergy (Verified 03/26/25 09:02) Rash Medications ???Medication ???Instructions ???Recorded ???Confirmed ???Type cholecalciferol (vitamin D3) 50 50 mcg PO DAILY 10/31/20 03/26/25 History mcg (2,000 unit) capsule ascorbic acid (vitamin C) 1,000 mg 1 g PO DAILY 04/16/21 03/26/25 H istory tablet Novopen Echo (insulin admin #1 ea 05/01/21 03/26/25 Rx supplies) pen needle, diabetic 32 gauge x #50 ea 05/01/21 03/26/25 History aspirin 81 mg tablet,delayed 81 mg PO DAILY 03/08/22 03/26/25 H istory release (Adult Low Dose Aspirin) magnesium oxide 400 mg PO DAILY 01/17/23 03/26/25 History nitroglycerin 0.4 mg sublingual 0.4 mg sublingual Q5M PRN chest 03/26/25 Rx tablet pain #25 tabs dapagliflozin propanediol 10 mg 10 mg PO DAILY 07/05/23 03/26/25 H istory tablet (Farxiga) carvedilol 6.25 mg tablet 3.125 mg PO BID Needs SCRIPTTALK 1 01/16/23 03/26/25 History LABELS: pt is blind levothyroxine 125 mcg tablet 125 mcg PO QDAY 02/28/24 03/26/25 History ramipril 5 mg capsule 10 mg PO QDAY 02/28/24 03/26/25 Hi story clopidogrel 75 mg tablet 75 mg PO DAILY NEEDS SCRIPTTALK 03/26/25 Rx LABELS: patient is blind #90 tabs insulin aspart U-100 100 unit/mL 100 unit continuous subcutaneous 0 01/09/25 03/26/25 Rx subcutaneous solution (Novolog infusion .continuous #90 mL U-100 Insulin aspart) [facility] Medical History (Updated 03/26/25 @ 09:[address] 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 Pericarditis ST elevation myocardial infarction (STEMI) of anterior wall Anxiety Rash Hives Asthma Rheumatoid arthritis Hypothyroidism Blindness Diabetic retinopathy Surgical History History of cholecystectomy Hx of eye surgery Presence of stent in coronary artery ( 01/23/14) History of coronary angioplasty ( 11/08/13) H/O: H/O vitrectomy H/O breast augmentation History of tonsillectomy S/P appendectomy H/O angioplasty History of left heart catheterization Family History Mother CAD (coronary artery disease) Hx of CABG Brother Hypertension Melanoma Father Atrial fibrillation Grandmother Lung cancer Brother Diabetes Other Cancer anesthesia allergy Social History Smoking Status: Never smoker second hand exposure: No alcohol intake: current alcohol intake frequency: a few times a month substance use type: does not use caffeine: Yes Type: coffee Number of servings: 6 and tea Number of servings: 2 HPI HPI Chief Complaint: Diabetes Details: LAURA DANG, is a 54 F who presents to the office today for follow up. A1C is GMI is 6.2% She is new on T-slim insulin pump with Dexcom G7 CGM and Control IQ+ Wow! Her sugars are so much improved. She is very happy and feels much more independent as she can run the pump without help. She has blindness, stage 4 CKD and CAD. She has hypothyroidism and is taking levothyroxine. She is on Farxiga for renal protection. ROS Const Constitutional: No fatigue, weight change or change in appetite Eyes Eyes: No change in vision ENT ENT: No dizziness/vertigo or difficulty swallowing Cardio Cardiology: No chest pain at rest, chest pain with exertion, shortness of breath or palpitations Musc Musculoskeletal: No abnormal gait, joint pain, numbness or tingling Neuro (more content not included)... Normal [facility] Bone density reportOrdered B y: Akash Sarabia on 01-29-2025 Study report Skeletal system DXA [facility] Imaging Services [address] [place] [address] Dexa Bone Density Study MR#: [id number] Acct: [id number] Name: LAURA DANG Rep #: [id number] : 1970 F 54 From: Jose Sarabia MD PCP: Dr. Joni Campo MD Status: REG CLI Study:Dexa Bone Density Study Date of Exam: 01/29/25 Exam# [id number] Ordering Dr: Nazario Campo MD PROCEDURE: DEXA BONE DENSITY STUDY REASON FOR EXAM: F, age 54 y/o . Postmenopausal. TECHNIQUE: DEXA scan of the lumbar spine and both hips. COMPARISON: Comparison is made with prior study dated September 22, 2022. FINDINGS: Lumbar Spine (L1-L4): g/cm2 (0.938)/T-score (-0.9)/Z-score (0.1) findings are suggestive of normal with a low fracture risk. Left Femur Total: g/cm2 (0.711)/T-score (-1.9)/Z-score (-1.2) Left Femoral Neck: g/cm2 (0.568)/T-score (-2.5)/Z-score (-1.5) Right Femur Total: g/cm2 (0.688)/T-score (-2.1)/Z-score (-1.4) Right Femoral Neck: g/cm2 (0.566)/T-score (-2.5)/Z-score (-1.4) The T-Scores on the most recent prior examination were: Lumbar Spine (L1-L4): There has been worsening of bone density since the previous examination. Left Femur Total: Worsening a by 10.2%. Right Femur Total: Worsening by 14.4%. BD/Dexa Bone Density Study IMPRESSION: The patient is considered osteoporosis as outlined below according to World Luis Organization (WHO) criteria with a high fracture risk. There has been worsening of bone density since the previous examination. Reading Location: [id number] CC: Dr. Joni Campo MD ~ [employer] [place]: Signed [facility] Breast imaging reportOrdered By: Debbie Méndez on 01-29-2025 Study report [facility] Imaging Services [address], [place] [address] SCRN MAMM (CAD)W/OZ BILAT MR#: [id number] Acct: [id number] Name: LAURA DANG Rep #: [id number] : 1970 F 54 From: Marni Méndez MD PCP: Dr. Joni Campo MD Status: REG CLI Study:SCRN MAMM (CAD)W/OZ BILAT Date of Exa m: 01/29/25 Exam# [id number] Ordering Dr: Nazario Campo MD PROCEDURE: SCRN MAMM (CAD)W/OZ BILAT REASON FOR EXAM: F, Age 54 y/o, presents for annual screening mammogram. No family history of breast cancer. TECHNIQUE: Bilateral screening digital breast tomosynthesis with 2D and 3D images. Computeraided detection. COMPARISON: 06/09/2021 FINDINGS: The breasts are heterogeneously dense which may obscure small masses. The mammogram demonstrates that the patient has dense breasts. Supplemental screening with whole breast ultrasound or MRI may be considered for further evaluation. There are bilateral prepectoral silicone breast implants. No suspicious masses, areas of developing architectural distortion, or suspicious calcifications. BI/SCRN MAMM (CAD)W/OZ BILAT IMPRESSION: There is no mammographic evidence of malignancy. BI-RADS 1: NEGATIVE. RECOMMEND ANNUAL MAMMOGRAPHIC SCREENING. Follow-up code: Routine Follow-up The patient will be notified of the results by letter. Reading Location: [facility] CC: Dr. Joni Campo MD ~ [employer] [place]: Signed [facility] Dexa Bone Density Studyon Dexa Bone Density Study [facility] Imaging Services [address] [place] [address] Dexa Bone Density Study MR#: [id number] Acct: [id number] Name: LAURA DANG Rep #: [id number] : 1970 F 54 From: Akash lima MD PCP: Dr. Joni Campo MD Status: REG CLI Study: Dexa Bone Density Study Date of Exam: 01/29/25 Exam# [id number] Ordering Dr: Joni Campo MD PROCEDURE: DEXA BONE DENSITY STUDY REASON FOR EXAM: F, age 54 y/o . Postmenopausal. TECHNIQUE: DEXA scan of the lumbar spine and both hips. COMPARISON: Comparison is made with prior study dated September 22, 2022. FINDINGS: Lumbar Spine (L1-L4): g/cm2 (0.938)/T-score (-0.9)/Z-score (0.1) findings are suggestive of normal with a low fracture risk. Left Femur Total: g/cm2 (0.711)/T-score (-1.9)/Z-score (-1.2) Left Femoral Neck: g/cm2 (0.568)/T-score (-2.5)/Z-score (-1.5) Right Femur Total: g/cm2 (0.688)/T-score (-2.1)/Z-score (-1.4) Right Femoral Neck: g/cm2 (0.566)/T-score (-2.5)/Z-score (-1.4) The T-Scores on the most recent prior examination were: Lumbar Spine (L1-L4): There has been worsening of bone density since the previous examination. Left Femur Total: Worsening a by 10.2%. Right Femur Total: Worsening by 14.4%. BD/Dexa Bone Density Study IMPRESSION: The patient is considered osteoporosis as outlined below according to World Luis Organization (WHO) criteria with a high fracture risk. There has been worsening of bone density since the previous examination. Reading Location: [id number] CC: Dr. Joni Campo MD [employer] [place]: Signed Normal [facility] SCRN MAMM (CAD)W/OZ BILATo n 01-29-2025 SCRN MAMM (CAD)W/OZ BILAT [facility] Imaging Services [address] [place], [place] [address] SCRN MAMM (CAD)W/OZ BILAT MR#: [id number] Acct: [id number] Name: LAURA DANG Rep #: [id number] : 1970 F 54 From: Debbie Méndez MD PCP: Dr. Joni Campo MD Status: [facility] Study: SCRN MAMM (CAD)W/OZ BILAT Date of Exam: 03/22 Exam# [id number] Ordering Dr: Joni Campo MD PROCEDURE: SCRN MAMM (CAD)W/OZ BILAT REASON FOR EXAM: F, Age 54 y/o, presents for annual screening mammogram. No family history of breast cancer. TECHNIQUE: Bilateral screening digital breast tomosynthesis with 2D and 3D images. Computer aided detection. COMPARISON: 06/09/2021 FINDINGS: The breasts are heterogeneously dense which may obscure small masses. The mammogram demonstrates that the patient has dense breasts. Supplemental screening with whole breast ultrasound or MRI may be considered for further evaluation. There are bilateral prepectoral silicone breast implants. No suspicious masses, areas of developing architectural distortion, or suspicious calcifications. BI/SCRN MAMM (CAD)W/OZ BILAT IMPRESSION: There is no mammographic evidence of malignancy. BI-RADS 1: NEGATIVE. RECOMMEND ANNUAL MAMMOGRAPHIC SCREENING. Follow-up code: Routine Follow-up The patient will be notified of the results by letter. Reading Location: [id number] CC: Dr. Joni Campo MD [employer] [place]: Signed [facility] Blood urea nitrogen (BUN)/cr eatinine ratioOrdered By: Nargis Villalobos on 2024 Urea nitrogen/Creatinine [Mass ratio] 20.8 mg/mg High 10-20 [facility] Carbon dioxide measurementOr dered By: Nargis Villalobos on 2024 CO2 [Moles/Vol] 22.0 mmol/L 21.0-32.0 [facility] Chloride measurementOrdered By: Nargis Villalobos on 2024 Chloride [Moles/Vol] 109 mmol/L High 98-107 [facility] Estimated glomerular filtrat ion rate (GFR) AmericanOrdered By: Nargis Villalobos on 2024 Estimated GFR (MDRD) Amer 30 mL/min Low >60 [facility] Comment on above: GFR Calc Glomerular filtration rate ( GFR) estimationOrdered By: Nargis Villalobos on 2024 Estimated GFR (MDRD) Non-Af Amer 25 mL/min Low >60 [facility] Comment on above: Non- GFR Calc Glucose measurementOrdered B y: Nargis Villalobos on 2024 Glucose [Mass/Vol] 165 mg/dL High 74-106 [facility] Comment on above: Fasting Glucose resu lt greater than or equal to 126 mg/dL suggests DIABETES MELLITUS per A.D.A. criteria. Phosphorus measurementOrdere d By: Nargis Villalobos on 2024 Phosphorus Level 3.7 mg/dL 2.5-4.9 [facility] Potassium measurementOrdered By: Nargis Villalobos on 2024 Potassium [Moles/Vol] 4.3 mmol/L 3.5-5.1 [facility] Protein+Creatinine Ratio,Uri neon 2024 PROT:CRE RATIO 77 mg/g CRE Normal 0-200 [facility] Comment on above: Performed By: #### L 501.0900, L500.3600 #### [facility] [address] [place] [address]. [place], [place], [id number] PROTEIN,UR.RAN. < 6.0 Normal <11.9 [facility] Comment on above: Performed By: #### L 501.0900, L500.3600 #### [facility] [address] [place], [address] UR CREAT 74.20 mg/dL Normal NO RANGE EST. [facility] Comment on above: Performed By: #### L 501.0900, L500.3600 #### [facility] [address] [place], [address] Protein/Creatinine (U) [Mass ratio]Ordered By: Nargis Villalobos on 2024 Urine Protein/Creatinine Ratio 77 mg/g CRE 0-200 [facility] Random urine protein measure mentOrdered By: Nargis Villalobos on 2024 Urine Random Total Protein < 6.0 mg/dL 0.0-11.8 [facility] Renal Profileon 2024 Albumin [Mass/Vol] 3.6 g/dL Normal 3.2-5.0 [facility] Comment on above: Performed By: #### L 501.0900, L500.3600 #### [facility] [address] [place], [address] BUN/CRE 20.8 RATIO High 10-20 [facility] Comment on above: Performed By: #### L 501.0900, L500.3600 #### [facility] [address] [place], [address] CA,Total 9.3 mg/dL Normal 8.5-10.1 [facility] Comment on above: Performed By: #### L 501.0900, L500.3600 #### [facility] [address] [place], [address] Chloride [Moles/Vol] 109 mmol/L High 98-107 [facility] Comment on above: Performed By: #### L 501.0900, L500.3600 #### [facility] [address] [place], [address] CO2 [Moles/Vol] 22.0 mmol/L Normal 21.0-32.0 [facility] Comment on above: Performed By: #### L 501.0900, L500.3600 #### [facility] [address] [place], [address] Creatinine [Mass/Vol] 2.16 mg/dL High 0.55-1.02 [facility] Comment on above: Result Comment: The validity of the calculated GFR GFRAA in patients over 70 years has not been determined. Clinical correlation is essential. Performed By: #### L 501.0900, L500.3600 #### [facility] [address] [place], [address] EST GFR - AA 30 mL/min Low >60 [facility] Comment on above: Result Comment: Afri can Swedish GFR Calc Performed By: #### L 501.0900, L500.3600 #### [facility] [address] [place], [address] GFR/1.73 sq M.predicted among non-blacks MDRD (S/P/Bld) [Vol rate/Area] 25 mL/min/{1.73_m2} Low >60 [facility] Comment on above: Result Comment: Non- GFR Calc Performed By: #### L 501.0900, L500.3600 #### [facility] [address] [place], [address] Glucose [Mass/Vol] 165 mg/dL High 74-106 [facility] Comment on above: Result Comment: Fast ing Glucose result greater than or equal to 126 mg/dL suggests DIABETES MELLITUS per A.D.A. criteria. Performed By: #### L 501.0900, L500.3600 #### [facility] [address] [place], [address] Phosphate [Mass/Vol] 3.7 mg/dL Normal 2.5-4.9 [facility] Comment on above: Performed By: #### L 501.0900, L500.3600 #### [facility] [address] [place], [address] Potassium [Moles/Vol] 4.3 mmol/L Normal 3.5-5.1 [facility] Comment on above: Performed By: #### L 501.0900, L500.3600 #### [facility] [address] [place], [address] Sodium [Moles/Vol] 139 mmol/L Normal 136-145 [facility] Comment on above: Performed By: #### L 501.0900, L500.3600 #### [facility] [address] [place], [address] Urea nitrogen [Mass/Vol] 45 mg/dL High 7-18 [facility] Comment on above: Performed By: #### L 501.0900, L500.3600 #### [facility] [address] [place], [address] Serum or plasma albumin buck urement (mass/volume)Ordered By: Nargis Villalobos on 2024 Albumin [Mass/Vol] 3.6 g/dL 3.2-5.0 [facility] Serum or plasma calcium buck urement (mass/volume)Ordered By: Nargis Villalobos on 2024 Calcium [Mass/Vol] 9.3 mg/dL 8.5-10.1 [facility] Serum or plasma creatinine m easurement (mass/volume)Ordered By: Nargis Villalobos on 2024 Creatinine [Mass/Vol] 2.16 mg/dL High 0.55-1.02 [facility] Comment on above: The validity of the calculated GFR & GFRAA in patients over 70 years has not been determined. Clinical correlation is essential. Serum or plasma urea nitroge n measurement (mass/volume)Ordered By: Nargis Villalobos on 2024 Urea nitrogen [Mass/Vol] 45 mg/dL High 7-18 [facility] Sodium levelOrdered By: Fareed Villalobos on 2024 Sodium [Moles/Vol] 139 mmol/L 136-145 [facility] Urine creatinine measurement (mass/volume)Ordered By: Nargis Villalobos on 2024 Creatinine (U) [Mass/Vol] 74.20 mg/dL NO RANGE EST. [facility] Endocrinology Visit Reporton 12-06-2024 Endocrinology Visit Report [facility] [address] [place] [address] OFFICE VISIT Date of Service: 12/06/24 MR#: [id number] Acct: [id number] Name: LAURA DANG Rep #: [id number] : 1970 Provider: Tomasz Cruz Age/Sex: 53/F Location: [facility] Status: Signed Intake Vital Signs 07/10/24 09:31 12/06/24 09:35 Height 5 ft 9 in 5 ft 9 in Weight: 200 lb 197 lb 6 oz BMI 29.5 29.1 BP 131/73 H 153/85 H Blood Pressure Location Lt brachial Lt brachial Position Sitting Sitting Pulse 71 72 Pulse Source Monitor Monitor Pulse Oximetry (%) 98 97 Oxygen Delivery Method room air room air Intake Visit Reasons: 4 M FU Chief Complaint: Diabetes Is patient in pain?: No Allergies adhesive tape Allergy (Severe, Verified 12/06/24 09:39) Unknown latex Allergy (Verified 12/06/24 09:39) Rash Medications ???Medication ???Instructions ???Recorded ???Confirmed ???Type cholecalciferol (vitamin D3) 50 50 mcg PO DAILY 10/31/20 12/06/24 History mcg (2,000 unit) capsule omeprazole 20 mg capsule,delayed 20 mg PO DAILY 10/31/20 12/06/24 History release ascorbic acid (vitamin C) 1,000 mg 1 g PO DAILY 04/16/21 12/06/24 History tablet Novopen Echo (insulin admin #1 ea 05/01/21 12/06/24 Rx supplies) pen needle, diabetic 32 gauge x #50 ea 05/01/21 12/06/24 History aspirin 81 mg tablet,delayed 81 mg PO DAILY 03/08/22 12/06/24 History release (Adult Low Dose Aspirin) magnesium oxide 400 mg PO DAILY 01/17/23 12/06/24 History nitroglycerin 0.4 mg sublingual 0.4 mg sublingual Q5M PRN chest 01/17/23 12/06/24 Rx tablet pain #25 tabs dapagliflozin propanediol 10 mg 10 mg PO DAILY 07/05/23 12/06/24 History tablet (Farxiga) carvedilol 6.25 mg tablet 3.125 mg PO BID Needs SCRIPTTALK 11/15/23 12/06/24 History LABELS: pt is blind levothyroxine 125 mcg tablet 125 mcg PO QDAY 02/28/24 12/06/24 History ramipril 5 mg capsule 10 mg PO QDAY 02/28/24 12/06/24 History clopidogrel 75 mg tablet 75 mg PO DAILY NEEDS SCRIPTTALK 04/16/24 12/06/24 Rx LABELS: patient is blind #90 tabs Tresiba FlexTouch U-100 100 20 unit (0.2 mL) subcut QHS #18 mL 12/06/24 12/06/24 Rx unit/mL (3 mL) subcutaneous pen (insulin degludec) insulin aspart 10 unit subcut TID #30 mL 12/06/24 12/06/24 Rx (niacinamide)(U-100) 100 unit/mL(3 mL) subcutaneous pen (Fiasp FlexTouch U-100 Insulin) [facility] Medical History Stage 4 chronic kidney disease Diabetes mellitus type 1 COVID-19 Cat scratch of right hand Difficulty balancing when standing Shoulder pain Kidney disease Diabetes mellitus type 1, uncontrolled, insulin dependent Old myocardial infarction Mixed hyperlipidemia Essential hypertension Hypophosphatemia Retinopathy Hearing loss Family history of hypertension 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 Pericarditis ST elevation myocardial infarction (STEMI) of anterior wall Anxiety Rash Hives Asthma Rheumatoid arthritis Hypothyroidism Blindness Diabetic retinopathy Surgical History History of cholecystectomy Hx of eye surgery Presence of stent in coronary artery ( 01/23/14) History of coronary angioplasty ( 11/08/13) H/O: H/O vitrectomy H/O breast augmentation History of tonsillectomy S/P appendectomy H/O angioplasty History of left heart catheterization Family History Mother CAD (coronary artery disease) Hx of CABG Brother Hypertension Melanoma Father Atrial fibrillation Grandmother Lung cancer Brother Diabetes Other Cancer anesthesia allergy Social History Smoking Status: Never smoker second hand exposure: No alcohol intake: current alcohol intake frequency: a few times a month substance use type: does not use caffeine: Yes Type: coffee Number of servings: 6 and tea Number of servings: 2 HPI HPI Chief Complaint: Diabetes Details: LAURA DANG, is a 53 F who presents to the office today for follow up. A1C is 8.5% She is using basal bolus and using Dexcom G 6 CGM. She is blind. She has stage 4 CKD and sees nephrology. She is taking Farxiga. She has hypothyroidism. I strongly recommend insulin pump for her. I brought in pump certified personal trainer to speak with her. She needs better control as her diabetes complications are piling up. ROS Const Constitutional: No fatigue or weight change ENT ENT: No dizziness/vertigo Cardio Cardiology: No chest pain at rest, chest pain with exertion, shortness of breath or palpit (more content not included)... Normal [facility] Laboratory - Hematology and Cell countson 12-06-2024 HbA1c (Bld) [Mass fraction] 8.5 % High 4.2-6.3 [facility] Bilirubin Test strip Ql (U)O rdered By: Joni Campo on 07-04-2023 Bilirubin Ql (U) Negative Negative [facility] Ketones Test strip Ql (U)Ord ered By: Joni Campo on 07-04-2023 Ketones Ql (U) Negative Negative [facility] Nitrite Test strip Ql (U)Ord ered By: Joni Campo on 07-04-2023 Nitrite Ql (U) Negative Negative [facility] No Panel InformationOrdered By: Joni Campo on 07-04-2023 Urine Microalbumin/Creatinine Ratio 86.3 mg/g CRE <30 [facility] Protein Test strip Ql (U)Ord ered By: Joni Campo on 07-04-2023 Protein Ql (U) 15 mg/dl Negative [facility] Thin prep Papanicolaou smear with manual screeningOrdered By: Joni Campo on 07-04-2023 Thin prep Papanicolaou smear with manual screening 41.1 mg/L NO RANGE EST. [facility] Urine blood detectionOrdered By: Joni Campo on 07-04-2023 RBC Ql (U) Negative Negative [facility] Urine clarityOrdered By: Perlita Campo on 07-04-2023 Clarity (U) Clear Clear [facility] Urine color determinationOrd ered By: Joni Campo on 07-04-2023 Color (U) Yellow Yellow [facility] Urine creatinine measurement (mass/volume)Ordered By: Joni Campo on 07-04-2023 Creatinine (U) [Mass/Vol] 47.60 mg/dL NO RANGE EST. [facility] Urine glucose detectionOrder ed By: Joni Campo on 07-04-2023 Glucose Ql (U) 1000 mg/dl Normal [facility] Urine leukocyte esterase det ection by dipstickOrdered By: Joni Campo on 07-04-2023 Leukocyte esterase Test strip Ql (U) 25 /ul Negative [facility] Urine pHOrdered By: Joni paige on 07-04-2023 pH (U) 6.0 [pH] 5.0 - 8.0 [facility] Urine protein measurement (m ass/volume)Ordered By: Joni Campo on 07-04-2023 Protein (U) [Mass/Vol] 9.2 mg/dL 0.0-11.8 [facility] Urine protein/creatinine mas s ratioOrdered By: Joni Campo on 07-04-2023 Protein/Creatinine (U) [Mass ratio] 193 mg/g CRE 0-200 [facility] Urine specific gravity measu rementOrdered By: Joni Campo on 07-04-2023 Specific gravity (U) [Rel density] 1.010 1.002-1.030 [facility] Urobilinogen Auto test strip Ql (U)Ordered By: Jnoi Campo on 07-04-2023 Urobilinogen Ql (U) Normal mg/dl Normal [facility] Absolute lymphocyte countOrd ered By: Joni Campo on 07-02-2023 Lymphocytes Auto (Unsp spec) [#/Vol] 1.52 10*3/uL 0.83-4.51 [facility] Albumin Elph [Mass/Vol]Order ed By: Joni Campo on 07-02-2023 Albumin [Mass/Vol] 3.4 g/dL 2.9-4.4 [facility] Atypical perinuclear antineu trophil cytoplasmic antibodies measurementOrdered By: Joni Campo on 07-02-2023 Neutrophil cytoplasmic Ab.perinuclear.atypical IF (S) [Titer] <1:20 titer Neg:<1:20 [facility] Comment on above: The atypical pANCA p attern has been observed in asignificant percentage of patients with ulcerative colitis,primary sclerosing cholangitis and autoimmune hepatitis.Performed at: [facility] [id number] Director: Gamal Dennis PhD, Phone: [phone] Basophil percentageOrdered B y: Joni Campo on 07-02-2023 Basophil percentage 3.8 mg/dL 2.5-4.9 [facility] Basophils/100 WBC (Bld) 1.1 % 0-1 [facility] Bilirubin [Mass/Vol] 0.30 mg/dL 0.20-1.00 [facility] Comment on above: For patients on eltr ombopag therapy, use of Dimension Gruver TBIL is not recommended. Chloride [Moles/Vol] 110 mmol/L 98-107 [facility] Cholesterol [Mass/Vol] 174 mg/dL <200 [facility] Comment on above: <200 mg/dL Desirable 200-240 mg/dL Borderline >240 mg/dL High Risk Eosinophils/100 WBC (Bld) 2.6 % 0-5 [facility] Glucose [Mass/Vol] 140 mg/dL 74-106 [facility] Comment on above: Fasting Glucose resu lt greater than or equal to 126 mg/dL suggests DIABETES MELLITUS per A.D.A. criteria. Neutrophils (Bld) [#/Vol] 4.9 10*3/uL 2.0-7.7 [facility] Neutrophils/100 WBC (Bld) 66.7 % 47-70 [facility] Potassium [Moles/Vol] 4.6 mmol/L 3.5-5.1 [facility] Protein [Mass/Vol] 6.8 g/dL 6.4-8.2 [facility] Sodium [Moles/Vol] 140 mmol/L 136-145 [facility] Triglyceride [Mass/Vol] 120 mg/dL <199 [facility] Comment on above: The drugs N-Acetylcy steine and Metamizole may falsely depress this assay.Serum Triglycerides Reference Interval Normal <150 mg/dL Borderline high 150 - 199 mg/dL High 200 - 499 mg/dL Very High > or = 500 mg/dL WBC (Bld) [#/Vol] 7.4 10*3/uL 4.4-11.0 [facility] Blood erythrocytes count (nu mber/volume)Ordered By: Joni Campo on 07-02-2023 RBC (Bld) [#/Vol] 4.20 10*6/uL 4.2-5.4 [facility] Blood hemoglobin measurement (mass/volume)Ordered By: Joni Campo on 07-02-2023 Hemoglobin (Bld) [Mass/Vol] 12.2 g/dL 12.0-15. 0 [facility] Blood lymphocytes/100 leukoc ytesOrdered By: Joni Campo on 07-02-2023 Lymphocytes/100 WBC (Bld) 20.7 % 19-41 [facility] Blood monocytes/100 leukocyt esOrdered By: Joni Campo on 07-02-2023 Monocytes/100 WBC (Bld) 8.6 % 0-10 [facility] Blood platelet mean volumeOr dered By: Joni Campo on 07-02-2023 Platelet mean volume (Bld) [Entitic vol] 11.1 fL 6.2-12.0 [facility] Determination of erythrocyte mean corpuscular volume (MCV)Ordered By: Joni Campo on 07-02-2023 MCV (RBC) [Entitic vol] 92.6 fL 81-99 [facility] Hematocrit Auto (Bld) [Volum e fraction]Ordered By: Joni Campo on 07-02-2023 Hematocrit (Bld) [Volume fraction] 38.9 % 37-47 [facility] Interpretation of serum or p lasma protein pattern by immunofixation (narrative resultOrdered By: Joni Campo on 07-02-2023 Protein Fractions Immunofixation Sami [Interp] See comment [facility] Comment on above: NOT OBSERVED Iron measurement (mass/mass) Ordered By: Joni Campo on 07-02-2023 Iron (Unsp spec) [Mass/Mass] 57 ug/dL 50-170 [facility] Laboratory - Chemistry and C hemistry - challengeOrdered By: Joni Campo on 07-02-2023 ALP [Catalytic activity/Vol] 67 U/L 45-117 [facility] ALT [Catalytic activity/Vol] 13 U/L 13-56 [facility] CO2 [Moles/Vol] 24.0 mmol/L 21.0-32.0 [facility] Cobalamin (Vitamin B12) [Mass/Vol] 263 pg/mL 211-911 [facility] Free T4 [Mass/Vol] 1.27 ng/dL 0.76-1.46 [facility] Urea nitrogen/Creatinine [Mass ratio] 21.5 mg/mg 10-20 [facility] Laboratory - Hematology and Cell countsOrdered By: Joni Campo on 07-02-2023 Erythrocyte distribution width (RBC) [Entitic vol] 43.2 fL 35.1-43.9 [facility] Erythrocyte distribution width (RBC) [Ratio] 12.8 % 11.6-14.6 [facility] Immature granulocytes/100 WBC (Bld) 0.300 % 0.0-0.9 [facility] Comment on above: IG% - Immature Granu locytes (promyelocytes, myelocytes and metamyelocytes) > 1% indicates that a LEFT SHIFT is Present. MCH (RBC) [Entitic mass] 29.0 pg 27.0-32.0 [facility] Nucleated RBC/100 WBC (Bld) [Ratio] 0 % 0-5 [facility] MCHC Auto (RBC) [Mass/Vol]Or dered By: Joni Campo on 07-02-2023 MCHC (RBC) [Mass/Vol] 31.4 g/dL 32-36 [facility] No Panel InformationOrdered By: Joni Campo on 07-02-2023 Addendum Document Comment . [facility] Comment on above: Protein electrophore sis scan will follow via computer,mail, or watch hairspring assembler delivery. Estimated GFR (MDRD) Amer 31 mL/min >60 [facility] Comment on above: GFR Calc Estimated GFR (MDRD) Non-Af Amer 26 mL/min >60 [facility] Comment on above: Non- GFR Calc Thyroid Stimulating Hormone (TSH) 0.83 uIU/mL 0.358-3.74 [facility] Total Iron Binding Capacity 253 ug/dL 250-450 [facility] Vitamin D 25-Hydroxy 51.8 ng/mL [facility] Comment on above: Vitamin D 25(OH) Sta tus Range Deficiency <20 ng/mL (50nmol/L) Insufficiency 20 - 30 ng/mL (50 - 75 nmol/L) Sufficiency 30 - 100 ng/mL (75 - 250 nmol/L) Toxicity >100 ng/mL (>250 nmol/L) Platelets bldOrdered By: Perlita Campo on 07-02-2023 Platelets (Bld) [#/Vol] 282 10*3/uL 150-450 [facility] Serum vezbc-4-[id number] measu rement by electrophoresisOrdered By: Joni Campo on 07-02-2023 Alpha 1 globulin Elph [Mass/Vol] 0.2 g/dL 0.0-0.4 [facility] Alpha 1 globulin Elph [Mass/Vol] 0.7 g/dL 0.4-1.0 [facility] Serum classic neutrophil cyt oplasmic antibody assay (units/volume)Ordered By: Joni Campo on 07-02-2023 Neutrophil cytoplasmic Ab.classic Qn (S) <1:20 titer Neg:<1:20 [facility] Serum globulin measurement ( mass/volume)Ordered By: Joni Campo on 07-02-2023 Globulin (S) [Mass/Vol] 2.8 g/dL 2.2-3.9 [facility] Serum or plasma IgA measurem ent (mass/volume)Ordered By: Joni Campo on 07-02-2023 IgA [Mass/Vol] 184 mg/dL 87-352 [facility] Serum or plasma IgG measurem ent (mass/volume)Ordered By: Joni Campo on 07-02-2023 IgG [Mass/Vol] 1070 mg/dL [phone] [facility] Serum or plasma IgM measurem ent (mass/volume)Ordered By: Joni Campo on 07-02-2023 IgM [Mass/Vol] 26 mg/dL 26-217 [facility] Comment on above: Result confirmed on concentration. Serum or plasma albumin buck urement (mass/volume)Ordered By: Joni Campo on 07-02-2023 Albumin [Mass/Vol] 3.3 g/dL 3.2-5.0 [facility] Serum or plasma albumin/glob ulin mass ratioOrdered By: Joni Campo on 07-02-2023 Albumin/Globulin [Mass ratio] 0.9 {ratio} 0.9-2.4 [facility] Serum or plasma beta globuli n measurement by electrophoresis (mass/volume)Ordered By: Joni Campo on 07-02-2023 Beta globulin Elph [Mass/Vol] 0.9 g/dL 0.7-1.3 [facility] Serum or plasma calcium buck urement (mass/volume)Ordered By: Joni Campo on 07-02-2023 Calcium [Mass/Vol] 9.0 mg/dL 8.5-10.1 [facility] Serum or plasma cholesterol in HDL measurement (mass/volume)Ordered By: Joni Campo on 07-02-2023 Cholesterol in HDL [Mass/Vol] 41 mg/dL >40 [facility] Comment on above: The drugs N-Acetylcy steine and Metamizole may falsely depress this assay. Reference Range HDL <40 mg/dL Low HDL Cholesterol HDL >or= 60 mg/dL High HDL Cholesterol Serum or plasma cholesterol in VLDL measurement (mass/volume)Ordered By: Joni Campo on 07-02-2023 Cholesterol in VLDL [Mass/Vol] 24 mg/dL 5-40 [facility] Serum or plasma creatinine m easurement (mass/volume)Ordered By: Joni Campo on 07-02-2023 Creatinine [Mass/Vol] 2.14 mg/dL 0.55-1.02 [facility] Comment on above: The validity of the calculated GFR & GFRAA in patients over 70 years has not been determined. Clinical correlation is essential. Serum or plasma ferritin wendie surement (mass/volume)Ordered By: Joni Campo on 07-02-2023 Ferritin [Mass/Vol] 24 ng/mL 8-252 [facility] Serum or plasma folate measu rement (mass/volume)Ordered By: Joni Campo on 07-02-2023 Folate [Mass/Vol] 17.30 ng/mL 3.1-55.4 [facility] Serum or plasma gamma globul in measurement by electrophoresis (mass/volume)Ordered By: Joni Campo on 07-02-2023 Gamma globulin Elph [Mass/Vol] 1.0 g/dL 0.4-1.8 [facility] Serum or plasma immunoelectr ophoresis interpretation (nominal result)Ordered By: Joni Campo on 07-02-2023 Interpretation IEP [Interp] Comment . [facility] Comment on above: No monoclonality det ected. Serum or plasma iron saturat ion measurement (mass fraction)Ordered By: Joni Campo on 07-02-2023 Iron saturation [Mass fraction] 22.5 % 15.0-55.0 [facility] Serum or plasma low density lipoprotein (LDL) cholesterol measurement (mass/volume)Ordered By: Joni Campo on 07-02-2023 Cholesterol in LDL [Mass/Vol] 109 mg/dL 0-130 [facility] Serum or plasma urea nitroge n measurement (mass/volume)Ordered By: Joni Campo on 07-02-2023 Urea nitrogen [Mass/Vol] 46 mg/dL 7-18 [facility] Serum perinuclear neutrophil cytoplasmic antibody titer by immunofluorescenceOrdered By: Joni Campo on 07-02-2023 Neutrophil cytoplasmic Ab.perinuclear IF (S) [Titer] <1:20 titer Neg:<1:20 [facility] Comment on above: The presence of posi tive fluorescence exhibiting P-ANCA orC-ANCA patterns alone is not specific for the diagnosis ofWegener's Granulomatosis (WG) or microscopic polyangiitis.Decisions about treatment should not be based solely onANCA IFA results. The [employer] Consensusrecommends follow up testing of positive sera with both OR-3 and MPO-ANCA enzyme immunoassays. As many as 5% serumsamples are positive only by EIA. Ref. AM J Clin [id number];[id number]. Thin prep Papanicolaou smear with manual screeningOrdered By: Joni Campo on 07-02-2023 Thin prep Papanicolaou smear with manual screening 1.3 0.7-1.7 [facility] Thin prep Papanicolaou smear with manual screening 11 U/L 15-37 [facility] Thin prep Papanicolaou smear with manual screening 6 5-15 [facility] Total protein bloodOrdered B y: Joni Campo on 07-02-2023 Protein [Mass/Vol] 6.2 g/dL 6.0-8.5 [facility] Whole blood hemoglobin A1c/t otal hemoglobin ratio (mass fraction)Ordered By: Joni Campo on 07-02-2023 HbA1c (Bld) [Mass fraction] 8.4 % 3.8-5.6 [facility] Comment on above: Normal < 5.7 % Predi abetic 5.7 - 6.4 % Diabetic >or= 6.5 % Please note range changes. Laboratory - Hematology and Cell countson 03-31-2023 HbA1c (Bld) [Mass fraction] 7.8 % 4.2-6.3 [facility] Atypical perinuclear antineu trophil cytoplasmic antibodies measurementOrdered By: Dr. Hermosillo on 03-05-2023 Neutrophil cytoplasmic Ab.perinuclear.atypical IF (S) [Titer] <1:20 titer Neg:<1:20 [facility] Comment on above: The atypical pANCA p attern has been observed in asignificant percentage of patients with ulcerative colitis,primary sclerosing cholangitis and autoimmune hepatitis.Performed at: [facility] [place] [id number] Director: Gamal Dennis PhD, Phone: [phone] Basophil percentageOrdered B y: Dr. Hermosillo on 03-05-2023 Basophil percentage 4.3 mg/dL 2.5-4.9 [facility] Chloride [Moles/Vol] 109 mmol/L 98-107 [facility] Glucose [Mass/Vol] 111 mg/dL 74-106 [facility] Comment on above: Fasting Glucose resu lt from 100 to 125 mg/dL suggests IMPAIRED HOMEOSTASIS per A.D.A. criteria. Potassium [Moles/Vol] 5.0 mmol/L 3.5-5.1 [facility] Sodium [Moles/Vol] 138 mmol/L 136-145 [facility] WBC (Bld) [#/Vol] 5.3 10*3/uL 4.4-11.0 [facility] Basophil percentageOrdered B y: Dr. Dave on 03-05-2023 Bilirubin [Mass/Vol] 0.30 mg/dL 0.20-1.00 [facility] Comment on above: For patients on eltr ombopag therapy, use of Dimension Gruver TBIL is not recommended. Cholesterol [Mass/Vol] 200 mg/dL <200 [facility] Comment on above: <200 mg/dL Desirable 200-240 mg/dL Borderline >240 mg/dL High Risk Protein [Mass/Vol] 6.6 g/dL 6.4-8.2 [facility] Triglyceride [Mass/Vol] 72 mg/dL <199 [facility] Comment on above: The drugs N-Acetylcy steine and Metamizole may falsely depress this assay.Serum Triglycerides Reference Interval Normal <150 mg/dL Borderline high 150 - 199 mg/dL High 200 - 499 mg/dL Very High > or = 500 mg/dL Bilirubin Test strip Ql (U)O rdered By: Dr. Hermosillo on 03-05-2023 Bilirubin Ql (U) Negative Negative [facility] Blood erythrocytes count (nu mber/volume)Ordered By: Dr. Hermosillo on 03-05-2023 RBC (Bld) [#/Vol] 4.47 10*6/uL 4.2-5.4 [facility] Blood hemoglobin measurement (mass/volume)Ordered By: Dr. Hermosillo on 03-05-2023 Hemoglobin (Bld) [Mass/Vol] 13.1 g/dL 12.0-15. 0 [facility] Blood platelet mean volumeOr dered By: Dr. Hermosillo on 03-05-2023 Platelet mean volume (Bld) [Entitic vol] 11.2 fL 6.2-12.0 [facility] Determination of erythrocyte mean corpuscular volume (MCV)Ordered By: Dr. Hermosillo on 03-05-2023 MCV (RBC) [Entitic vol] 89.7 fL 81-99 [facility] Direct bilirubinOrdered By: Dr. Dave on 04-08-2023 Bilirubin.direct [Mass/Vol] 0.09 mg/dL 0.00-0.3 0 [facility] Hematocrit Auto (Bld) [Volum e fraction]Ordered By: Dr. Hermosillo on 03-05-2023 Hematocrit (Bld) [Volume fraction] 40.1 % 37-47 [facility] Ketones Test strip Ql (U)Ord ered By: Dr. Hermosillo on 03-05-2023 Ketones Ql (U) Negative Negative [facility] Laboratory - Chemistry and C hemistry - challengeOrdered By: Dr. Hermosillo on 03-05-2023 Albumin [Mass/Vol] 3.6 g/dL 2.9-4.4 [facility] CO2 [Moles/Vol] 28.0 mmol/L 21.0-32.0 [facility] Urea nitrogen/Creatinine [Mass ratio] 16.6 mg/mg 10-20 [facility] Laboratory - Chemistry and C hemistry - challengeOrdered By: Dr. Dave on 03-05-2023 ALP [Catalytic activity/Vol] 64 U/L 45-117 [facility] ALT [Catalytic activity/Vol] 18 U/L 13-56 [facility] Globulin (S) [Mass/Vol] 3.3 g/dL 2.2-4.2 [facility] Laboratory - Hematology and Cell countsOrdered By: Dr. Hermosillo on 03-05-2023 Erythrocyte distribution width (RBC) [Entitic vol] 40.0 fL 35.1-43.9 [facility] Erythrocyte distribution width (RBC) [Ratio] 12.3 % 11.6-14.6 [facility] MCH (RBC) [Entitic mass] 29.3 pg 27.0-32.0 [facility] MCHC Auto (RBC) [Mass/Vol]Or dered By: Dr. Hermosillo on 03-05-2023 MCHC (RBC) [Mass/Vol] 32.7 g/dL 32-36 [facility] Nitrite Test strip Ql (U)Ord ered By: Dr. Hermosillo on 03-05-2023 Nitrite Ql (U) Negative Negative [facility] No Panel InformationOrdered By: Dr. Hermosillo on 03-05-2023 Addendum Document Comment . [facility] Comment on above: The SPE pattern appe ars unremarkable. Evidence ofmonoclonal protein is not apparent. Blbfb-9-Uqtpsifqw 0.2 g/dL 0.0-0.4 [facility] Fgfao-7-Zxdevrnln 0.6 g/dL 0.4-1.0 [facility] Estimated GFR (MDRD) Amer 36 mL/min >60 [facility] Comment on above: GFR Calc Estimated GFR (MDRD) Non-Af Amer 30 mL/min >60 [facility] Comment on above: Non- GFR Calc Gamma Globulins 1.0 g/dL 0.4-1.8 [facility] Serum Immunofixation Comment . [facility] Comment on above: No monoclonality det ected. Platelets bldOrdered By: Dr. Hermosillo on 03-05-2023 Platelets (Bld) [#/Vol] 268 10*3/uL 150-450 [facility] Protein Fractions Elph [Inte rp]Ordered By: Dr. Hermosillo on 03-05-2023 Protein Fractions [Interp] Comment . [facility] Comment on above: Protein electrophore sis scan will follow via computer,mail, or watch hairspring assembler delivery. Protein Test strip Ql (U)Ord ered By: Dr. Hermosillo on 03-05-2023 Protein Ql (U) 100 mg/dl Negative [facility] Serum albumin to globulin ra abe by protein electrophoresisOrdered By: Dr. Hermosillo on 03-05-2023 Albumin/Globulin Elph [Mass ratio] 1.2 0.7-1.7 [facility] Serum classic neutrophil cyt oplasmic antibody assay (units/volume)Ordered By: Dr. Hermosillo on 03-05-2023 Neutrophil cytoplasmic Ab.classic Qn (S) <1:20 titer Neg:<1:20 [facility] Serum globulin measurement ( mass/volume)Ordered By: Dr. Hermosillo on 03-05-2023 Globulin (S) [Mass/Vol] 2.9 g/dL 2.2-3.9 [facility] Serum or plasma IgA measurem ent (mass/volume)Ordered By: Dr. Hermosillo on 03-05-2023 IgA [Mass/Vol] 188 mg/dL 87-352 [facility] Serum or plasma IgG measurem ent (mass/volume)Ordered By: Dr. Hermosillo on 03-05-2023 IgG [Mass/Vol] 1085 mg/dL [phone] [facility] Serum or plasma IgM measurem ent (mass/volume)Ordered By: Dr. Hermosillo on 03-05-2023 IgM [Mass/Vol] 32 mg/dL 26-217 [facility] Serum or plasma albumin buck urement (mass/volume)Ordered By: Dr. Hermosillo on 03-05-2023 Albumin [Mass/Vol] 3.4 g/dL 3.2-5.0 [facility] Serum or plasma beta globuli n measurement by electrophoresis (mass/volume)Ordered By: Dr. Hermosillo on 03-05-2023 Beta globulin Elph [Mass/Vol] 0.9 g/dL 0.7-1.3 [facility] Serum or plasma calcium buck urement (mass/volume)Ordered By: Dr. Hermosillo on 03-05-2023 Calcium [Mass/Vol] 9.3 mg/dL 8.5-10.1 [facility] Serum or plasma cholesterol in HDL measurement (mass/volume)Ordered By: Dr. Dave on 03-05-2023 Cholesterol in HDL [Mass/Vol] 54 mg/dL >40 [facility] Comment on above: The drugs N-Acetylcy steine and Metamizole may falsely depress this assay. Reference Range HDL <40 mg/dL Low HDL Cholesterol HDL >or= 60 mg/dL High HDL Cholesterol Serum or plasma cholesterol in VLDL measurement (mass/volume)Ordered By: Dr. Dave on 03-05-2023 Cholesterol in VLDL [Mass/Vol] 14 mg/dL 5-40 [facility] Serum or plasma creatinine m easurement (mass/volume)Ordered By: Dr. Hermosillo on 03-05-2023 Creatinine [Mass/Vol] 1.87 mg/dL 0.55-1.02 [facility] Comment on above: The validity of the calculated GFR & GFRAA in patients over 70 years has not been determined. Clinical correlation is essential. Serum or plasma low density lipoprotein (LDL) cholesterol measurement (mass/volume)Ordered By: Dr. Dave on 03-05-2023 Cholesterol in LDL [Mass/Vol] 132 mg/dL 0-130 [facility] Serum or plasma urea nitroge n measurement (mass/volume)Ordered By: Dr. Hermosillo on 03-05-2023 Urea nitrogen [Mass/Vol] 31 mg/dL 7-18 [facility] Serum perinuclear neutrophil cytoplasmic antibody titer by immunofluorescenceOrdered By: Dr. Hermosillo on 03-05-2023 Neutrophil cytoplasmic Ab.perinuclear IF (S) [Titer] <1:20 titer Neg:<1:20 [facility] Comment on above: The presence of posi tive fluorescence exhibiting P-ANCA orC-ANCA patterns alone is not specific for the diagnosis ofWegener's Granulomatosis (WG) or microscopic polyangiitis.Decisions about treatment should not be based solely onANCA IFA results. The [employer] Consensusrecommends follow up testing of positive sera with both OR-3 and MPO-ANCA enzyme immunoassays. As many as 5% serumsamples are positive only by EIA. Ref. AM J Clin [id number];[id number]. Thin prep Papanicolaou smear with manual screeningOrdered By: Dr. Dave on 03-05-2023 Thin prep Papanicolaou smear with manual screening 17 U/L 15-37 [facility] Thin prep Papanicolaou smear with manual screeningOrdered By: Dr. Hermosillo on 03-05-2023 Thin prep Papanicolaou smear with manual screening See comment [facility] Comment on above: Result: Not Observed Total protein bloodOrdered B y: Dr. Hermosillo on 03-05-2023 Protein [Mass/Vol] 6.5 g/dL 6.0-8.5 [facility] Urine blood detectionOrdered By: Dr. Hermosillo on 03-05-2023 RBC Ql (U) 10 /ul Negative [facility] Urine clarityOrdered By: Dr. Hermosillo on 03-05-2023 Clarity (U) Clear Clear [facility] Urine color determinationOrd ered By: Dr. Hermosillo on 03-05-2023 Color (U) Yellow Yellow [facility] Urine creatinine measurement (mass/volume)Ordered By: Dr. Hermosillo on 03-05-2023 Creatinine (U) [Mass/Vol] 173.00 mg/dL NO RANGE EST. [facility] Urine glucose detectionOrder ed By: Dr. Hermosillo on 03-05-2023 Glucose Ql (U) Normal mg/dl Normal [facility] Urine leukocyte esterase det ection by dipstickOrdered By: Dr. Hermosillo on 03-05-2023 Leukocyte esterase Test strip Ql (U) 500 /ul Negative [facility] Urine pHOrdered By: Dr. Paula ramirez on 03-05-2023 pH (U) 5.0 [pH] 5.0 - 8.0 [facility] Urine protein measurement (m ass/volume)Ordered By: Dr. Hermosillo on 03-05-2023 Protein (U) [Mass/Vol] 47.5 mg/dL 0.0-11.8 [facility] Urine protein/creatinine mas s ratioOrdered By: Dr. Hermosillo on 03-05-2023 Protein/Creatinine (U) [Mass ratio] 275 mg/g CRE 0-200 [facility] Urine specific gravity measu rementOrdered By: Dr. Hermosillo on 03-05-2023 Specific gravity (U) [Rel density] 1.015 1.002-1.030 [facility] Urobilinogen Auto test strip Ql (U)Ordered By: Dr. Hermosillo on 03-05-2023 Urobilinogen Ql (U) Normal mg/dl Normal [facility] Absolute lymphocyte countOrd ered By: Dr. Yoo on 11-16-2022 Lymphocytes Auto (Unsp spec) [#/Vol] 1.08 10*3/uL 0.83-4.51 [facility] Basophil percentageOrdered B y: Dr. Yoo on 11-16-2022 Basophil percentage 10-25 SEEN /hpf 0-5 [facility] Basophils/100 WBC (Bld) 0.8 % 0-1 [facility] Bilirubin [Mass/Vol] 0.30 mg/dL 0.20-1.00 [facility] Comment on above: For patients on eltr ombopag therapy, use of Dimension Gruver TBIL is not recommended. Chloride [Moles/Vol] 106 mmol/L 98-107 [facility] Eosinophils/100 WBC (Bld) 2.2 % 0-5 [facility] Glucose [Mass/Vol] 138 mg/dL 74-106 [facility] Comment on above: Fasting Glucose resu lt greater than or equal to 126 mg/dL suggests DIABETES MELLITUS per A.D.A. criteria. Neutrophils (Bld) [#/Vol] 6.5 10*3/uL 2.0-7.7 [facility] Neutrophils/100 WBC (Bld) 74.7 % 47-70 [facility] Potassium [Moles/Vol] 3.9 mmol/L 3.5-5.1 [facility] Protein [Mass/Vol] 6.9 g/dL 6.4-8.2 [facility] Sodium [Moles/Vol] 138 mmol/L 136-145 [facility] WBC (Bld) [#/Vol] 8.7 10*3/uL 4.4-11.0 [facility] Bilirubin Test strip Ql (U)O rdered By: Dr. Yoo on 11-16-2022 Bilirubin Ql (U) Negative Negative [facility] Blood erythrocytes count (nu mber/volume)Ordered By: Dr. Yoo on 11-16-2022 RBC (Bld) [#/Vol] 4.44 10*6/uL 4.2-5.4 [facility] Blood hemoglobin measurement (mass/volume)Ordered By: Dr. Yoo on 11-16-2022 Hemoglobin (Bld) [Mass/Vol] 13.1 g/dL 12.0-15. 0 [facility] Blood lymphocytes/100 leukoc ytesOrdered By: Dr. Yoo on 11-16-2022 Lymphocytes/100 WBC (Bld) 12.4 % 19-41 [facility] Blood monocytes/100 leukocyt esOrdered By: Dr. Yoo on 11-16-2022 Monocytes/100 WBC (Bld) 9.6 % 0-10 [facility] Blood platelet mean volumeOr dered By: Dr. Yoo on 11-16-2022 Platelet mean volume (Bld) [Entitic vol] 10.7 fL 6.2-12.0 [facility] Determination of erythrocyte mean corpuscular volume (MCV)Ordered By: Dr. Yoo on 11-16-2022 MCV (RBC) [Entitic vol] 91.0 fL 81-99 [facility] Glucose Glucometer (BldC) [M ass/Vol]Ordered By: Dr. Yoo on 11-16-2022 Glucose [Mass/Vol] 185 mg/dL 74-106 [facility] Comment on above: MANAGEMENT OF PATIEN T CARE PER NURSING PROTOCOL Hematocrit Auto (Bld) [Volum e fraction]Ordered By: Dr. Yoo on 11-16-2022 Hematocrit (Bld) [Volume fraction] 40.4 % 37-47 [facility] Ketones Test strip Ql (U)Ord ered By: Dr. Yoo on 11-16-2022 Ketones Ql (U) Negative Negative [facility] Laboratory - Chemistry and C hemistry - challengeOrdered By: Dr. Yoo on 11-16-2022 ALP [Catalytic activity/Vol] 54 U/L 45-117 [facility] ALT [Catalytic activity/Vol] 20 U/L 13-56 [facility] CO2 [Moles/Vol] 22.0 mmol/L 21.0-32.0 [facility] Globulin (S) [Mass/Vol] 3.5 g/dL 2.2-4.2 [facility] Urea nitrogen/Creatinine [Mass ratio] 19.0 mg/mg 10-20 [facility] Laboratory - Hematology and Cell countsOrdered By: Dr. Yoo on 11-16-2022 Erythrocyte distribution width (RBC) [Entitic vol] 41.8 fL 35.1-43.9 [facility] Erythrocyte distribution width (RBC) [Ratio] 12.8 % 11.6-14.6 [facility] Immature granulocytes/100 WBC (Bld) 0.300 % 0.0-0.9 [facility] Comment on above: IG% - Immature Granu locytes (promyelocytes, myelocytes and metamyelocytes) > 1% indicates that a LEFT SHIFT is Present. MCH (RBC) [Entitic mass] 29.5 pg 27.0-32.0 [facility] Nucleated RBC/100 WBC (Bld) [Ratio] 0 % 0-5 [facility] MCHC Auto (RBC) [Mass/Vol]Or dered By: Dr. Yoo on 11-16-2022 MCHC (RBC) [Mass/Vol] 32.4 g/dL 32-36 [facility] Mucus LM Ql (Urine sed)Order ed By: Dr. Yoo on 11-16-2022 Mucus Ql (Urine sed) 0 SEEN /hpf [facility] Nitrite Test strip Ql (U)Ord ered By: Dr. Yoo on 11-16-2022 Nitrite Ql (U) Positive Negative [facility] No Panel InformationOrdered By: Dr. Yoo on 11-16-2022 Estimated Creatinine Clearance Calc 35.27 ml/min [facility] Estimated GFR (MDRD) Amer 35 mL/min >60 [facility] Comment on above: GFR Calc Estimated GFR (MDRD) Non-Af Amer 29 mL/min >60 [facility] Comment on above: Non- GFR Calc Troponin I High Sensitivity 10 pg/mL 3.0-54.0 [facility] Comment on above: Please Note: New Mavis t Units and Gender Specific Reference Ranges. For more information see Policy Stat Procedure Gruver High Sensitivity Troponin (TNIH) and attachments. Platelets bldOrdered By: Dr. Yoo on 11-16-2022 Platelets (Bld) [#/Vol] 273 10*3/uL 150-450 [facility] Protein Test strip Ql (U)Ord ered By: Dr. Yoo on 11-16-2022 Protein Ql (U) 500 mg/dl Negative [facility] Serum or plasma albumin buck urement (mass/volume)Ordered By: Dr. Yoo on 11-16-2022 Albumin [Mass/Vol] 3.4 g/dL 3.2-5.0 [facility] Serum or plasma albumin/glob ulin mass ratioOrdered By: Dr. Yoo on 11-16-2022 Albumin/Globulin [Mass ratio] 1.0 {ratio} 0.9-2.4 [facility] Serum or plasma calcium buck urement (mass/volume)Ordered By: Dr. Yoo on 11-16-2022 Calcium [Mass/Vol] 9.1 mg/dL 8.5-10.1 [facility] Serum or plasma creatinine m easurement (mass/volume)Ordered By: Dr. Yoo on 11-16-2022 Creatinine [Mass/Vol] 1.95 mg/dL 0.55-1.02 [facility] Comment on above: The validity of the calculated GFR & GFRAA in patients over 70 years has not been determined. Clinical correlation is essential. Serum or plasma urea nitroge n measurement (mass/volume)Ordered By: Dr. Yoo on 11-16-2022 Urea nitrogen [Mass/Vol] 37 mg/dL 7-18 [facility] Squamous epithelial cells de tection in urine sediment by light microscopyOrdered By: Dr. Yoo on 11-16-2022 Epithelial cells.squamous LM Ql (Urine sed) 0-5 SEEN /hpf 5-10 [facility] Thin prep Papanicolaou smear with manual screeningOrdered By: Dr. Yoo on 11-16-2022 Thin prep Papanicolaou smear with manual screening 17 U/L 15-37 [facility] Thin prep Papanicolaou smear with manual screening 10 5-15 [facility] Urine blood detectionOrdered By: Dr. Yoo on 11-16-2022 RBC Ql (U) 25 /ul Negative [facility] RBC Ql (U) 0-5 SEEN /hpf 0-5 [facility] Urine clarityOrdered By: Dr. Yoo on 11-16-2022 Clarity (U) Clear Clear [facility] Urine color determinationOrd ered By: Dr. Yoo on 11-16-2022 Color (U) Yellow Yellow [facility] Urine glucose detectionOrder ed By: Dr. oYo on 11-16-2022 Glucose Ql (U) Normal mg/dl Normal [facility] Urine leukocyte esterase det ection by dipstickOrdered By: Dr. Yoo on 11-16-2022 Leukocyte esterase Test strip Ql (U) 100 /ul Negative [facility] Urine pHOrdered By: Dr. Rich taylor on 11-16-2022 pH (U) 7.0 [pH] 5.0 - 8.0 [facility] Urine sediment bacteria coun t by microscopy (number/high power field)Ordered By: Dr. Yoo on 11-16-2022 Bacteria LM.HPF (Urine sed) [#/Area] 2 /[HPF] None Seen [facility] Urine specific gravity measu rementOrdered By: Dr. Yoo on 11-16-2022 Specific gravity (U) [Rel density] 1.010 1.002-1.030 [facility] Urobilinogen Auto test strip Ql (U)Ordered By: Dr. Yoo on 11-16-2022 Urobilinogen Ql (U) Normal mg/dl Normal [facility] Absolute lymphocyte counton 09-25-2022 Lymphocytes Auto (Unsp spec) [#/Vol] 2.40 10*3/uL 0.83-4.51 [facility] Work Phone: Basophil percentageon 2021 Basophils/100 WBC (Bld) 1.1 % 0-1 [facility] Work Phone: Bilirubin [Mass/Vol] 0.20 mg/dL 0.20-1.00 [facility] Work Phone: Comment on above: For patients on eltr ombopag therapy, use of Dimension Gruver TBIL is not recommended. Chloride [Moles/Vol] 107 mmol/L 98-107 [facility] Work Phone: Cholesterol [Mass/Vol] 165 mg/dL <200 [facility] Work Phone: [phone] Comment on above: <200 mg/dL Desirable 200-240 mg/dL Borderline >240 mg/dL High Risk Eosinophils/100 WBC (Bld) 1.9 % 0-5 [facility] Work Phone: Glucose [Mass/Vol] 210 mg/dL 74-106 [facility] Work Phone: Comment on above: Glucose result great er than or equal to 200 mg/dLsuggests DIABETES MELLITUS per A.D.A. criteria. Neutrophils (Bld) [#/Vol] 4.6 10*3/uL 2.0-7.7 [facility] Work Phone: Neutrophils/100 WBC (Bld) 58.1 % 47-70 [facility] Work Phone: Potassium [Moles/Vol] 4.4 mmol/L 3.5-5.1 [facility] Work Phone: Protein [Mass/Vol] 6.5 g/dL 6.4-8.2 [facility] Work Phone: Sodium [Moles/Vol] 138 mmol/L 136-145 [facility] Work Phone: [phone] Triglyceride [Mass/Vol] 79 mg/dL <199 [facility] Work Phone: Comment on above: The drugs N-Acetylcy steine and Metamizole may falsely depress this assay.Serum Triglycerides Reference Interval Normal <150 mg/dL Borderline high 150 - 199 mg/dL High 200 - 499 mg/dL Very High > or = 500 mg/dL WBC (Bld) [#/Vol] 8.0 10*3/uL 4.4-11.0 [facility] Work Phone: Blood erythrocytes count (nu mber/volume)on 09-25-2022 RBC (Bld) [#/Vol] 4.28 10*6/uL 4.2-5.4 [facility] Work Phone: Blood hemoglobin measurement (mass/volume)on 09-25-2022 Hemoglobin (Bld) [Mass/Vol] 12.9 g/dL 12.0-15. 0 [facility] Work Phone: Blood lymphocytes/100 leukoc yteson 09-25-2022 Lymphocytes/100 WBC (Bld) 30.1 % 19-41 [facility] Work Phone: Blood monocytes/100 leukocyt eson 09-25-2022 Monocytes/100 WBC (Bld) 8.7 % 0-10 [facility] Work Phone: Blood platelet mean volumeon 09-25-2022 Platelet mean volume (Bld) [Entitic vol] 10.8 fL 6.2-12.0 [facility] Work Phone: Determination of erythrocyte mean corpuscular volume (MCV)on 09-25-2022 MCV (RBC) [Entitic vol] 92.1 fL 81-99 [facility] Work Phone: Hematocrit Auto (Bld) [Volum e fraction]on 09-25-2022 Hematocrit (Bld) [Volume fraction] 39.4 % 37-47 [facility] Work Phone: Laboratory - Chemistry and C hemistry - challengeon 09-25-2022 ALP [Catalytic activity/Vol] 69 U/L 45-117 [facility] Work Phone: ALT [Catalytic activity/Vol] 19 U/L 13-56 [facility] Work Phone: [phone] CO2 [Moles/Vol] 26.0 mmol/L 21.0-32.0 [facility] Work Phone: Cobalamin (Vitamin B12) [Mass/Vol] 343 pg/mL 211-911 [facility] Work Phone: Globulin (S) [Mass/Vol] 3.2 g/dL 2.2-4.2 [facility] Work Phone: Urea nitrogen/Creatinine [Mass ratio] 15.4 mg/mg 10-20 [facility] Work Phone: Laboratory - Hematology and Cell countson 09-25-2022 Erythrocyte distribution width (RBC) [Entitic vol] 43.4 fL 35.1-43.9 [facility] Work Phone: [phone] Erythrocyte distribution width (RBC) [Ratio] 12.8 % 11.6-14.6 [facility] Work Phone: Immature granulocytes/100 WBC (Bld) 0.100 % 0.0-0.9 [facility] Work Phone: Comment on above: IG% - Immature Granu locytes (promyelocytes, myelocytes and metamyelocytes) > 1% indicates that a LEFT SHIFT is Present. MCH (RBC) [Entitic mass] 30.1 pg 27.0-32.0 [facility] Work Phone: Nucleated RBC/100 WBC (Bld) [Ratio] 0 % 0-5 [facility] Work Phone: MCHC Auto (RBC) [Mass/Vol]on 09-25-2022 MCHC (RBC) [Mass/Vol] 32.7 g/dL 32-36 [facility] Work Phone: No Panel Informationon 09-25 Estimated GFR (MDRD) Amer 36 mL/min >60 [facility] Work Phone: Comment on above: GFR Calc Estimated GFR (MDRD) Non-Af Amer 30 mL/min >60 [facility] Work Phone: Comment on above: Non- GFR Calc Total Iron Binding Capacity 319 ug/dL 250-450 [facility] Work Phone: Platelets bldon 09-25-2022 Platelets (Bld) [#/Vol] 262 10*3/uL 150-450 [facility] Work Phone: Serum or plasma albumin buck urement (mass/volume)on 09-25-2022 Albumin [Mass/Vol] 3.3 g/dL 3.2-5.0 [facility] Work Phone: Serum or plasma albumin/glob ulin mass ratioon 09-25-2022 Albumin/Globulin [Mass ratio] 1.0 {ratio} 0.9-2.4 [facility] Work Phone: Serum or plasma calcium buck urement (mass/volume)on 09-25-2022 Calcium [Mass/Vol] 9.0 mg/dL 8.5-10.1 [facility] Work Phone: Serum or plasma cholesterol in HDL measurement (mass/volume)on 09-25-2022 Cholesterol in HDL [Mass/Vol] 53 mg/dL >40 [facility] Work Phone: Comment on above: The drugs N-Acetylcy steine and Metamizole may falsely depress this assay. Reference Range HDL <40 mg/dL Low HDL Cholesterol HDL >or= 60 mg/dL High HDL Cholesterol Serum or plasma cholesterol in VLDL measurement (mass/volume)on 09-25-2022 Cholesterol in VLDL [Mass/Vol] 16 mg/dL 5-40 [facility] Work Phone: Serum or plasma creatinine m easurement (mass/volume)on 09-25-2022 Creatinine [Mass/Vol] 1.88 mg/dL 0.55-1.02 [facility] Work Phone: Comment on above: The validity of the calculated GFR & GFRAA in patients over 70 years has not been determined. Clinical correlation is essential. Serum or plasma ferritin wendie surement (mass/volume)on 09-25-2022 Ferritin [Mass/Vol] 27 ng/mL 8-252 [facility] Work Phone: Serum or plasma folate measu rement (mass/volume)on 09-25-2022 Folate [Mass/Vol] 17.10 ng/mL 3.1-55.4 [facility] Work Phone: Serum or plasma low density lipoprotein (LDL) cholesterol measurement (mass/volume)on 09-25-2022 Cholesterol in LDL [Mass/Vol] 96 mg/dL 0-130 [facility] Work Phone: Serum or plasma urea nitroge n measurement (mass/volume)on 09-25-2022 Urea nitrogen [Mass/Vol] 29 mg/dL 7-18 [facility] Work Phone: Thin prep Papanicolaou smear with manual screeningon 09-25-2022 Thin prep Papanicolaou smear with manual screening 12 U/L 15-37 [facility] Work Phone: Thin prep Papanicolaou smear with manual screening 5 5-15 [facility] Work Phone: Whole blood hemoglobin A1c/t otal hemoglobin ratio (mass fraction)on 09-25-2022 HbA1c (Bld) [Mass fraction] 7.2 % 3.8-5.6 [facility] Work Phone: Comment on above: Normal < 5.7 % Predi abetic 5.7 - 6.4 % Diabetic >or= 6.5 % Please note range changes. CNCOon 07-22-2022 CNCO Letter Text Normal [facility] Laboratory - Hematology and Cell countson 03-08-2022 HbA1c (Bld) [Mass fraction] 7.6 % [facility] Work Phone: Vital Signs Date Time Vital Sign Value Performing Clinician Tao campbell 12-06-2024 09:35-0500 Body height 175.[address] Joni Campo MD Work Phone: [facility] 12-06-2024 09:35-0500 Body mass index (BMI) [Ratio] 29.1 kg/m2 Dr. Joni Campo MD Work Phone: 0(505)248-449981 [place] [address] 12-06-2024 09:35-0500 Body weight 89.[address] Joni Campo MD Work Phone: 3(872)753-504479 [place] [address] 12-06-2024 09:35-0500 Diastolic blood pressure 85 mm[Hg] Dr. Joni Campo MD Work Phone: 8(305)858-543879 [place] [address] 12-06-2024 09:35-0500 Heart rate 72 /min Dr. Joni Campo MD Work Phone: 0(514)499-816079 [place] [address] 12-06-2024 09:35-0500 SaO2% (BldA) [Mass fraction] 97 % Dr. Joni Campo MD Work Phone: 9(470)824-042379 [place] [address] 12-06-2024 09:35-0500 Systolic blood pressure 153 mm[Hg] Dr. Joni Campo MD Work Phone: 0(659)627-920579 [place] [address] 07-18-2023 09:19-0400 Diastolic blood pressure 68 mm[Hg] Dr. Joni Campo Work Phone: 4(325)470-463179 [place] [address] 07-18-2023 09:19-0400 Systolic blood pressure 128 mm[Hg] Dr. Joni Campo Work Phone: 6(079)774-959779 [place] [address] 07-18-2023 08:31-0400 Body height 175.[address] Joni Campo Work Phone: 2(418)805-864379 [place] [address] 07-18-2023 08:31-0400 Body mass index (BMI) [Ratio] 32.1 kg/m2 Dr. Joni Campo Work Phone: 6(200)085-057979 [place] [address] 07-18-2023 08:31-0400 Body weight 98.[address] Joni Campo Work Phone: 4(461)600-763979 [place] [address] 07-18-2023 08:31-0400 Heart rate 72 /min Dr. Joni Campo Work Phone: 6(415)511-244981 [place] [address] 07-18-2023 08:31-0400 Respiratory rate 18 /min Dr. Joni Campo Work Phone: [facility] 07-18-2023 08:31-0400 SaO2% (BldA) [Mass fraction] 100 % Dr. Joni Campo Work Phone: [facility] 07-05-2023 09:06-0400 Body height 175.[address] Joni Campo Work Phone: [facility] 07-05-2023 09:06-0400 Body mass index (BMI) [Ratio] 32 kg/m2 Dr. Joni Campo Work Phone: 5(530)695-641281 [place] [address] 07-05-2023 09:06-0400 Body temperature 98 [degF] Dr. Joni Campo Work Phone: 0(881)176-445066 [address] 07-05-2023 09:06-0400 Body weight 98.[address] Joni Campo Work Phone: 7(093)391-853066 [address] 07-05-2023 09:06-0400 Diastolic blood pressure 80 mm[Hg] Dr. Joni Campo Work Phone: 9(170)836-668781 [place] [address] 07-05-2023 09:06-0400 Heart rate 70 /min Dr. Joni Campo Work Phone: 0(450)194-442366 [address] 07-05-2023 09:06-0400 Respiratory rate 16 /min Dr. Joni Campo Work Phone: 1(917)535-120681 [place] [address] 07-05-2023 09:06-0400 SaO2% (BldA) [Mass fraction] 97 % Dr. Joni Campo Work Phone: [facility] 07-05-2023 09:06-0400 Systolic blood pressure 150 mm[Hg] Dr. Joni Campo Work Phone: 7(816)054-323966 [address] 03-31-2023 09:36-0400 Body mass index (BMI) [Ratio] 33 kg/m2 Dr. Joni Campo Work Phone: 6(951)143-518981 [place] [address] 03-31-2023 09:36-0400 Body temperature 97.4 [degF] Dr. Joni Campo Work Phone: 4(531)453-905666 [address] 03-31-2023 09:36-0400 Body weight 101.[address] Joni Campo Work Phone: [facility] 03-31-2023 09:36-0400 Diastolic blood pressure 70 mm[Hg] Dr. Joni Campo Work Phone: [facility] 03-31-2023 09:36-0400 Heart rate 74 /min Dr. Joni Campo Work Phone: [facility] 03-31-2023 09:36-0400 Respiratory rate 18 /min Dr. Joni Campo Work Phone: [facility] 03-31-2023 09:36-0400 SaO2% (BldA) [Mass fraction] 98 % Dr. Joni Campo Work Phone: [facility] 03-31-2023 09:36-0400 Systolic blood pressure 140 mm[Hg] Dr. Joni Campo Work Phone: [facility] 01-17-2023 09:06-0500 Body height 175.[address] Joni Campo Work Phone: [facility] 01-17-2023 09:06-0500 Body mass index (BMI) [Ratio] 32.8 kg/m2 Dr. Joni Campo Work Phone: [facility] 01-17-2023 09:06-0500 Body weight 100.[address] Joni Campo Work Phone: [facility] 01-17-2023 09:06-0500 Diastolic blood pressure 60 mm[Hg] Dr. Joni Campo Work Phone: [facility] 01-17-2023 09:06-0500 Heart rate 68 /min Dr. Joni Campo Work Phone: [facility] 01-17-2023 09:06-0500 Respiratory rate 16 /min Dr. Joni Campo Work Phone: [facility] 01-17-2023 09:06-0500 Systolic blood pressure 112 mm[Hg] Dr. Joni Campo Work Phone: [facility] 11-16-2022 03:34-0500 Body mass index (BMI) [Ratio] 34.8 kg/m2 Dr. Joni Campo Work Phone: [facility] 11-16-2022 03:34-0500 Body temperature 97.1 [degF] Dr. Joni Campo Work Phone: [facility] 11-16-2022 03:34-0500 Body weight 106.[address] Joni Campo Work Phone: [facility] 11-16-2022 03:34-0500 Diastolic blood pressure 85 mm[Hg] Dr. Joni Campo Work Phone: [facility] 11-16-2022 03:34-0500 Heart rate 98 /min Dr. Joni Campo Work Phone: [facility] 11-16-2022 03:34-0500 Respiratory rate 19 /min Dr. Joni Campo Work Phone: [facility] 11-16-2022 03:34-0500 SaO2% (BldA) [Mass fraction] 95 % Dr. Joni Campo Work Phone: [facility] 11-16-2022 03:34-0500 Systolic blood pressure 180 mm[Hg] Dr. Joni Campo Work Phone: [facility] 09-18-2022 00:36-0400 Diastolic blood pressure 79 mm[Hg] Dr. Joni Campo Work Phone: [facility] Work Phone: 09-18-2022 00:36-0400 Systolic blood pressure 184 mm[Hg] Dr. Joni Campo Work Phone: [facility] Work Phone: 09-17-2022 23:07-0400 Body temperature 97.5 [degF] Dr. Joni Campo Work Phone: [facility] Work Phone: 09-17-2022 23:07-0400 Heart rate 81 /min Dr. Joni Campo Work Phone: [facility] Work Phone: 09-17-2022 23:07-0400 Respiratory rate 16 /min Dr. Joni Campo Work Phone: [facility] Work Phone: 09-17-2022 23:07-0400 SaO2% (BldA) [Mass fraction] 95 % Dr. Joni Campo Work Phone: [facility] Work Phone: 09-17-2022 23:03-0400 Body height 175.[address] Joni Campo Work Phone: [facility] Work Phone: 09-17-2022 23:03-0400 Body mass index (BMI) [Ratio] 33 kg/m2 Dr. Joni Campo Work Phone: [facility] Work Phone: 09-17-2022 23:03-0400 Body weight 101.[address] Joni Campo Work Phone: [facility] Work Phone: 04-28-2022 16:05-0400 Body height 175.[address] Joni Campo Work Phone: [facility] Work Phone: 04-28-2022 16:05-0400 Body mass index (BMI) [Ratio] 31 kg/m2 Dr. Joni Campo Work Phone: [facility] Work Phone: 04-28-2022 16:05-0400 Body weight 95.[address] Joni Campo Work Phone: [facility] Work Phone: 04-28-2022 16:05-0400 Diastolic blood pressure 76 mm[Hg] Dr. Joni Campo Work Phone: [facility] Work Phone: 04-28-2022 16:05-0400 Heart rate 76 /min Dr. Joni Campo Work Phone: [facility] Work Phone: 04-28-2022 16:05-0400 Respiratory rate 18 /min Dr. Joni Campo Work Phone: [facility] Work Phone: 04-28-2022 16:05-0400 SaO2% (BldA) [Mass fraction] 97 % Dr. Joni Campo Work Phone: [facility] Work Phone: 04-28-2022 16:05-0400 Systolic blood pressure 143 mm[Hg] Dr. Joni Campo Work Phone: [facility] Work Phone: 03-08-2022 16:32-0400 Body mass index (BMI) [Ratio] 32.2 kg/m2 Dr. Joni Campo Work Phone: [facility] Work Phone: 03-08-2022 16:32-0400 Body temperature 97.1 [degF] Dr. Joni Campo Work Phone: [facility] Work Phone: 03-08-2022 16:32-0400 Body weight 98.[address] Joni Campo Work Phone: [facility] Work Phone: 03-08-2022 16:32-0400 Diastolic blood pressure 80 mm[Hg] Dr. Joni Campo Work Phone: [facility] Work Phone: 03-08-2022 16:32-0400 Heart rate 69 /min Dr. Joni Campo Work Phone: [facility] Work Phone: 03-08-2022 16:32-0400 Respiratory rate 18 /min Dr. Joni Campo Work Phone: [facility] Work Phone: 03-08-2022 16:32-0400 SaO2% (BldA) [Mass fraction] 97 % Dr. Joni Campo Work Phone: [facility] Work Phone: 03-08-2022 16:32-0400 Systolic blood pressure 140 mm[Hg] Dr. Joni Campo Work Phone: [facility] Work Phone: Encounters Encounter Date Encounter Type Care Provider Facility Start: 07-31-2025 End: 07-31-[address] Joni Campo MD Work Phone: -Laboratory Start: 07-31-2025 End: 07-31-[address] Danyel Mendez MD -Laboratory Work Phone: Start: 07-31-2025 End: 07-31-2025 ambulatory Joni Campo Facility:[facility] Start: 03-26-2025 End: 03-26-2025 ambulatory Joni Campo Facility:[facility] Start: 01-29-2025 End: 01-29-[address] Joni Campo MD Work Phone: [facility] Work Phone: Start: 01-29-2025 End: 01-29-[address] Joni Campo MD -Outpatient Bone Densitometry Work Phone: Start: 01-29-2025 End: 01-29-2025 ambulatory Joni Campo Facility:[facility] Start: 2024 End: 2024 Patient encounter procedure Nargis RILEY -Laboratory Work Phone: Start: 2024 End: 2024 ambulatory Nargis Villalobos Facility:[facility] Start: 12-06-2024 End: 12-06-[address] Danyel Mendez MD -[facility] Work Phone: Start: 12-06-2024 End: 12-06-2024 ambulatory Joni Campo Facility:[facility] Start: 07-19-2023 End: 07-19-[address] Joni Campo Work Phone: [facility] Work Phone: Start: 07-19-2023 End: 07-19-[address] Joni Campo Work Phone: [facility]-Physical Therapy Work Phone: Start: 07-18-2023 End: 07-18-[address] Joni Campo Work Phone: [facility] Work Phone: Start: 07-06-[address] [facility] Start: 07-05-2023 End: 07-05-[address] Joni Campo Work Phone: [facility] Work Phone: Start: 07-04-2023 End: 07-04-[address] Joni Campo Work Phone: [facility] Work Phone: Start: 07-04-2023 End: 07-04-[address] [facility] Camp[facility] Work Phone: Start: 07-02-2023 End: 07-02-[address] Joni Campo Work Phone: [facility] Work Phone: Start: 07-02-2023 End: 07-02-[address] Joni Campo Work Phone: [facility]-Laboratory Work Phone: Start: 03-31-2023 End: 03-31-[address] Joni Campo Work Phone: [facility] Work Phone: Start: 03-05-[address] Joni Campo Work Phone: [facility]-Laboratory Start: 02-26-2023 End: 02-26-[address] Joni Campo Work Phone: [facility] Work Phone: Start: 02-26-2023 End: 02-26-[address] Joni Campo Work Phone: [facility]-Ultrasound, [facility] Start: 02-16-2023 Transcribe Orders Cely Hermosillo MD Work Phone: [facility] Central Scheduling Comment on above: Chronic kidney disea se, stage 3b (HCC) (Primary Dx) Start: 01-17-2023 End: 01-17-[address] Joni Campo Work Phone: [facility] Start: 01-04-2023 Non-patient / Non-visit Dr. Joni Campo Work Phone: [facility] Start: 11-16-2022 End: 11-16-2022 Emergency department patient visit Dr. Joni Campo Work Phone: [facility]-Emergency Department Start: 09-25-2022 End: 09-25-[address] Joni Campo Work Phone: [facility] Work Phone: Start: 09-25-2022 End: 09-25-[address] Joni Campo Work Phone: [facility]-Laboratory Start: 09-22-2022 End: 09-22-[address] Joni Campo Work Phone: [facility]-Outpatient Bone Densitometry Start: 09-17-2022 End: 09-18-2022 Emergency department patient visit Dr. Joni Campo Work Phone: [facility]-Emergency Department Start: 06-15-2022 Non-patient / Non-visit Dr. Joni Campo Work Phone: [facility] Start: 06-15-2022 End: 06-15-[address] Joni Campo Work Phone: [facility]-Cardiovascular Services Start: 04-28-2022 End: 04-28-[address] Joni Campo Work Phone: [facility] Start: 03-08-2022 End: 03-08-[address] Joni Campo Work Phone: [facility] Endocrinology Procedures Date Procedure Procedure Detail Performing Clinician Start: 07-31-[address] Joni Campo MD Work Phone: Start: 07-31-2025 Serum inorganic phos phate measurement Dr. Joni Campo MD Work Phone: Start: 07-31-2025 Vitamin D, 25-hydrox y measurement Dr. Joni Campo MD Work Phone: Comment on above: Vitamin D StatusDefi ciency: <20 ng/mL (50nmol/L)Insufficiency: 20-30 ng/mL (50-75 nmol/L)Sufficiency: 30-100 ng/mL (75-250 nmol/L)Toxicity: >100 ng/mL (>250 nmol/L) Start: 01-29-2025 Dual energy X-ray absorptiometry Dr. Joni Campo MD Work Phone: Start: 01-29-2025 Screening mammography Gretta Campo MD Work Phone: Start: 02-26-[address] Nazario Campo Work Phone: Start: 11-16-2022 Plain chest X-ray Dr. Leona Campo Work Phone: Start: 11-16-2022 CT of head without contrast Dr. Joni Campo Work Phone: Start: 09-22-2022 Dual energy X-ray absorptiometry Dr. Joni Campo Work Phone: Start: 09-17-2022 X-ray of radius and ulna Dr. Joni Campo Work Phone: Start: 09-17-2022 Plain x-ray of wrist Dr Amy Campo Work Phone: Plan of Treatment Date Care Activity Detail Author Start: 07-29-2023 Influenza vaccination Influenz a Vaccine (Season Ended) [facility] Start: 02-16-2023 End: 02-17-2024 US Retroperitoneum US retroperitoneum Imaging Routine Chronic kidney disease, stage 3b (HCC) Expected: 02/16/2023, Expires: 02/17/2024 [facility] Work Phone: Comment on above: Expected: 02/16/2023 , Expires: 02/17/2024 Start: 2019 Zoster Vaccines (1 of 2) Zoster Vacc santosh (1 of 2) [facility] Start: 2009 Screening for malign ant neoplasm of breast Mammogram [facility] Start: 1999 Screening for malign ant neoplasm of cervix [facility] Start: 1990 Screening for malign ant neoplasm of cervix Pap Smear [facility] Start: 1988 DTaP/Tdap/Td Vaccine s (1 - Tdap) DTaP/Tdap/Td Vaccines (1 - Tdap) [facility] Start: 1987 Hepatitis C screening Hepatitis C Sc reening [facility] Start: 1981 Depression Screening Depression Scre ening [facility] Start: 1970 MMR Vaccines (1 of 1 - Standard series) MMR Vaccines (1 of 1 - Standard series) [facility] Start: 06-27-1970 COVID-19 Vaccine (#1) COVID-19 Vacci ne (#1) [facility] Start: 1969 Hepatitis B Vaccines (1 of 3 - 3-dose series) Hepatitis B Vaccines (1 of 3 - 3-dose series) [facility] Start: 1969 HIV screening HIV Screening [facility] Start: 1969 Screening for malign ant neoplasm of colon [facility] Lipid 1996 panel - S mitch or Plasma [facility] Work Phone: Patient Education [facility] Work Phone: Patient referral [facility] Work Phone: Immunizations Immunization Date Immunization Notes Care Provider Fa anne 07-29-[address] Joni Campo Work Phone: [facility] 07-14-2015 tetanus toxoid, redu delmis diphtheria toxoid, and acellular pertussis vaccine, adsorbed Dr. Joni Capmo Work Phone: [facility] 11-28-2012 pneumococcal polysaccharide vaccine, [address] Joni Campo Work Phone: [facility] Payers Date Payer Category Payer Unknown [id number] 2024 Medicaid [id number] 2024 Self-pay [id number] 2014 [id number] 1997 Medicare [id number] Private Health Insurance [id number] Unknown [id number] Unknown [id number] Unknown [id number] Unknown [id number] Unknown [id number] Social History Date Type Detail Facility Start: 04-28-2022 End: 07-18-2023 Tobacco smoking status NHIS Unknown if ever smoked [facility] Start: 05-30-2019 Occasional [facility] Start: 05-30-2019 None [facility] Start: 05-30-2019 Spouse/ Signif icant Other [facility] Start: 05-30-2019 Non-smoker [facility] Start: 1970 Sex Assigned At Female [facility] Start: 1970 Sex Assigned At Not on file [facility] Gender identity Not on file [facility] Start: 02-28-2024 Tobacco smoking status NHIS Never smoked tobacco (finding) [facility] Start: 02-13-2025 Sex Female (finding) [facility] Medical Equipment Procedure Code Equipment Code Equipment Origin al Text Equipment Identifier Dates Pen Needle, Diab etic 32 gauge x 5/32 needle Start: 05-01-2021 Pen Needle, Diab etic 32 gauge x 5/32 needle Start: 05-01-2021 Mental Status Date Assessment Result Facility 11-16-2022 Cognitive function Level Of Cons ciousness Awake;Alert;Appropriate;Follow s Commands [facility] Work Phone: Evaluation note 12-06-2024 Note Date & Type Note Facility 12-06-2024 Evaluation note Diagnosis Onset Date Resolution Diabetes mellitus type 1 chronic December 06, 2024 9:31am Essential hypertension chronic Ja nuary 2024 9:31am Hypothyroidism chronic November 9:31am Mixed hyperlipidemia chronic [place] 2024 9:31am Stage 4 chronic kidney disease chronic December 06 9:31am [facility] Work Phone: Discharge summary 08-25-2023 Note Date & Type Note Facility 08-25-2023 Discharge summary Note Date/Time August 25, 2023 5:15pm [facility] Physical Therapy [facility] [address] [place] [address] [address] [place] [address] / REHABILITATION SERVICES DISCHARGE SUMMARY MR#: [id number] Acct: [id number] Name: LAURA DANG Rep #: [id number] : 1970 52 From: Kira RON T Referring Dr.: Dr. Joni Campo MD Status: REG RCR Insurance: MEDICARE PART A B SELF PAY INSURANCE Patient Information Patient Information: LAURA DANG was seen in my office for initial evaluation on 06/17/23. The following Plan of Care was established for this patient: POC Established Initial Frequency: 2x /Week Initial Duration: 4 Weeks Anticipated Interventions Patient/Client Instruction: Educate patient on: Benefits of Fitness Program Therapeutic Exercise to Include: Strength training, Endurance training, Balance training, Body mechanics, Postural training, Flexibilty training, Gait and locomotor training, Neuromotor development, Dynamic Lumbar Stabilization and Scapular Strength/Stabilization Manual Therapy Techniques to Include: Functional dry needling and Soft tissue mobilization Ultrasound (thermal/non thermal): Yes Last Seen Last Seen: This patient was last seen in our office . Pertinent comments regarding their Physical therapy will appear below: Patient to continue HEP- d/c from PT At this point I will be discontinuing this patient from physical therapy. I would be happy to see this patient again in the future if found appropriate by the physician. Thank you! ARIADNE LirianoT Balance/Gait/Functional tests Balance/Special Test Scores Lower Extremity Functional Score: 45 <Electronically signed by Kira Rodriguez DPT> 08/25/23 1711 CC: Dr. Joni Campo MD ~ ELR Signed [facility] Work Phone: Evaluation note 12-29-2013 Note Date & Type Note Facility 12-29-2013 Evaluation note Diagnosis Onset Date Atherosclerotic heart diseas e of [place] coronary artery without angina pectoris chronic Essential hypertension chron ic Mixed hyperlipidemia chronic Presence of stent in coronar y artery December, [facility] Work Phone: Evaluation note Note Date & Type Note Facility Evaluation note Diagnosis Onset Date Diabetes type 1, controlled chronic Essential hypertension chron ic Hypothyroidism chronic Mixed hyperlipidemia chronic Obesity chronic Heart murmur acute Essential hypertension chron ic Mixed hyperlipidemia chronic Presence of stent in coronar y artery December, [facility] Work Phone: Evaluation note Note Date & Type Note Facility Evaluation note No assessment information availa [facility] Work Phone: Evaluation note Note Date & Type Note Facility Evaluation note Diagnosis Chronic kidney disease, stage 3b (HCC)- Primary documented in this encounter [facility] Evaluation note Note Date & Type Note Facility Evaluation note Diagnosis Onset Date Chronic renal failure, stage 3 (moderate) chronic Diabetes mellitus type 1 chr onic Essential hypertension chron ic Hypothyroidism chronic Mixed hyperlipidemia chronic Obesity chronic Diabetes mellitus type 1 chr onic Essential hypertension chron ic Hypothyroidism chronic Mixed hyperlipidemia chronic Obesity chronic [facility] Work Phone: Evaluation note Note Date & Type Note Facility Evaluation note Diagnosis Onset Date Diabetes mellitus type 1 chr onic Essential hypertension chron ic Hypothyroidism chronic Mixed hyperlipidemia chronic Obesity chronic Essential hypertension chron ic Mixed hyperlipidemia chronic Presence of stent in coronar y artery December, chronic [facility] Work Phone: Hospital Discharge instructions Note Date & Type Note Facility Hospital Discharge instructions Additional Instructions X-ray right forearm right wrist negative for fracture. Use wrist splint for comfort. Use Tylenol as needed every 6 hours. If pain persist after a week follow-up with your doctor for re-x-ray for any potential occult fractures. [facility] Work Phone: Reason for referral (narrative) Note Date & Type Note Facility Reason for referral (narrative) No reason for referral information available [facility] Work Phone: Chief Complaint and Reason for Visit Chief Complaint 4 M FU 6 M FU CARDIAC MURMUR Reason for Visit Diabetes type 1, con trolled Essential hypertension Hypothyroidism Mixed hyperlipidemia Obesity Heart murmur Essential hypertension Mixed hyperlipidemia Presence of stent in coronary artery Chief Complaint CARDIAC MURMUR UPPER Chief Complaint CARDIAC MURMUR UPPER POST MALA E-ORDER Chief Complaint hypoglycemia Amb Documentation 6 M FU CKD3 E-ORDER AND Chronic kidney disease, stage 3b Reason for Visit Atherosclerotic hear t disease of [place] coronary artery without angina pectoris Essential hypertension Mixed hyperlipidemia Presence of stent in coronary artery Chief Complaint 6 M FU HUONG RICHAR EORDERS URINE 3 M FU FOOT PN - DRY NEEDLE/RX HERE Reason for Visit Chronic renal failur e, stage 3 (moderate) Diabetes mellitus type 1 Essential hypertension Hypothyroidism Mixed hyperlipidemia Obesity Diabetes mellitus type 1 Essential hypertension Hypothyroidism Mixed hyperlipidemia Obesity Chief Complaint HUONG RICHAR EORDERS URINE 3 M FU 6 M FU FOOT PN - DRY NEEDLE/RX HERE Reason for Visit Diabetes mellitus ty pe 1 Essential hypertension Hypothyroidism Mixed hyperlipidemia Obesity Essential hypertension Mixed hyperlipidemia Presence of stent in coronary artery Chief Complaint Admit Date 4 M FU December 06, 2024 9: 31am SCREENING January 29, 2025 3:24 pm Reason for Visit Admit Date Diabetes mellitus type 1 December 06 9:31am Essential hypertension December 06, 2024 9:31am Hypothyroidism December 06, 2024 9: 31am Mixed hyperlipidemia December 06, 2024 9 :31am Stage 4 chronic kidney disease December 062024 9:31am Family History No Family History Records Found Relationship Condition Age at Onset Recorded Date/T jayson Not Specified Malignant neoplasm Unknown Unknown mother Coronary artery disease Unknown History of coronary artery bypass surgery Unknown brother Hypertension Unknown Malignant melanoma Unknown father Atrial fibrillation Unknown grandmother Malignant neoplasm of lung Unknown brother Diabetes mellitus Unknown Advance Directives No Advanced Directives Records Found Advance Directive Response Recorded Date/ Time Living Will Yes May 30, 2019 1 2:40pm Power of Detacker Yes May 30, 2019 12:40pm Advance Directive Response Recorded Date/ Time Living Will No September 17 11:14pm Power of Detacker No September 17, 2022 11:14pm Advance Directive Response Recorded Date/ Time Living Will No September 17 10:14pm Power of Detacker No September 17, 2022 10:14pm Advance Directive Response Recorded Date/ Time Name of Medical Power of Detacker Jennifer Dang November 16, 2022 4:34am Living Will Yes November 16 022 4:34am Power of Detacker Yes November 16, 2022 4:34am Advance Directive Response Recorded Date/ Time Living Will Yes November 16, 022 4:34am Power of Detacker Yes November 16, 2022 4:34am Advance Directive Response Recorded Date/ Time Living Will No September 03 11:40pm Power of Detacker No September 03 11:40pm Summary Purpose Additional Source Comments Goals (unrecognized section and content) Goals may be documented in a n alternate sectionGoals may be documented in an alternate sectionGoals may be documented in an alternate sectionGoals may be documented in an alternate sectionGoals may be documented in an alternate sectionGoals may be documented in an alternate sectionGoals may be documented in an alternate sectionGoals may be documented in an alternate sectionGoals may be documented in an alternate section INFORMATION SOURCE (unrecogn ized section and content) DATE CREATED AUTHOR 07/30/2022 [facility] DATE CREATED AUTHOR AUTHOR'S ORGANIZ ATION 08/16/2025 [facility] Care Teams (unrecognized sec tion and content) Team Status: Active Member Role Status Dates Dr. Joni Campo MD Family Provider Active Dr. Joni Campo MD Primary Care Provider Active Team Status: Inactive Member Role Status Dates Dr. Joni Campo MD Primary Care Provider, Referring P rovider Active Dr. Sanford Dave MD Attending Provider Active Team Status: Active Member Role Status Dates Dr. Joni Campo MD Primary Care Provider Active Marisabel Driver Attending Provider Active Team Status: Inactive Member Role Status Dates Dr. Joni Campo MD Primary Care Provider Active Dr. Isacc Yoo DO Attending Provider, Emergency Provider Active Team Status: Inactive Member Role Status Dates Dr. Joni Campo MD Primary Care Provider Active Dr. Kinsey Hermosillo MD Attending Provider Active Team Status: Active Member Role Status Dates Dr. Joni Campo MD Primary Care Provider Active Dr. Kinsey Hermosillo MD Attending Provider Active Dr. Sanford Dave MD Referring Provider Active Team Status: Inactive Member Role Status Dates Dr. Joni Campo MD Primary Care Provider, Referring P rovider Active Dr. Danyel Mendez MD Attending Provider Active Team Status: Inactive Member Role Status Dates Dr. Joni Campo MD Primary Care Provider Active Dr. Kinsey Hermosillo MD Attending Provider, Referri ng Provider Active Dr. Danyel Mendez MD Other Provider Active Team Status: Active Member Role Status Dates Dr. Joni Campo MD Primary Care Provide r, Attending Provider, Referring Provider Active Dr. Kinsey Hermosillo MD Other Provider Active Team Status: Active Member Role Status Dates Dr. Joni Campo MD Primary Care Provide r, Attending Provider, Referring Provider Active Team Status: Inactive Member Role Status Dates Dr. Joni Campo MD Primary Care Provide r, Attending Provider, Referring Provider Active Dr. Kinsey Hermosillo MD Other Provider Active Team Status: Inactive Member Role Status Dates Dr. Joni Campo MD Primary Care Provider, Referring P rovider Active Marisabel Yen PA, PA Attending Provider Active Team Status: Inactive Member Role Status Dates Dr. Joni Campo MD Primary Care Provide r, Attending Provider, Referring Provider Active Team Status: Active Member Role Status Dates Dr. Joni Campo MD Primary Care Provider Active Team Status: Inactive Member Role Status Dates Dr. Joni Campo MD Primary Care Provider Active Start: December 06, 2024 End: December 06, 2024 Dr. Joni Campo MD Referring Provider Active St art: December 06, 2024 End: December 06, 2024 Dr. Danyel Mendez MD Attending Provider Active Sta rt: December 06, 2024 End: December 06, 2024 Team Status: Inactive Member Role Status Dates Dr. Joni Campo MD Primary Care Provider Active Start: 2024 End: 2024 OSVALDO Aquino Attending Provider Active Start: 2024 End: 2024 OSVALDO Aquino Referring Provider Active Start: 2024 End: 2024 Team Status: Inactive Member Role Status Dates Dr. Joni Campo MD Primary Care Provider Active Start: January 29, 2025 End: January 29, 2025 Dr. Joni Campo MD Attending Provider Active St art: January 29, 2025 End: January 29, 2025 Dr. Joni Campo MD Referring Provider Active St art: January 29, 2025 End: January 29, 2025 Team Status: Active Member Role/Relationship Status Dates Dr. Joni Campo MD Primary care physician Active Team Status: Inactive Member Role/Relationship Status Dates Dr. Joni Campo MD Primary care physician Active Start: July 31, 2025 End: July 31, 2025 Dr. Danyel Mendez MD Attending physician Active St art: July 31, 2025 End: July 31, 2025 Dr. Kinsey Hermosillo MD Referring Provider Active Start: July 31, 2025 End: July 31, 2025 FOR RECORDS PERTAINING TO PATIENTS WHO ARE [...] BE BASED ON THE PRIMARY CLINICAL RECORDS. [employer] provides no warranty or guarantee of the accuracy or completeness of information in this document.
[2025-08-23 02:37] LABS: Anion Gap 15 (5-15); BUN 35 mg/dL (4-19); BUN/Creat Ratio 16.4 RATIO (10-20); Calcium,Total 9.2 mg/dL (7.6-11.0); Carbon Dioxide 18.8 mmol/L (21.0-32.0); Chloride 102 mmol/L (98-108); Estimated Creatinine Clearance 35.92 ml/min (50-250); Glucose 102 mg/dL (70-99); Potassium 4.4 mmol/L (3.3-5.1); Procalcitonin 0.44 ng/mL (<=0.10)
--- NOTE | 2025-08-23 04:27 | PCM.HP.STD ---
[facility] - General General Date of Admission: 08/23/25 Date of Service: 08/23/25 Chief Complaint: Worsening Right Foot Wound and Pain. 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 Mendez of endocrinology, diabetic retinopathy; with legal blindness, CAD; s/p STEMI with subsequent mid-RCA stent with angioplasty to LAD and proximal PDA at [facility] (~2013) on baby aspirin, clopidogrel and as needed SL NTG, history of syncope and collapse, history of pericarditis, history of mild concentric LVH; stage I diastolic dysfunction, history of amputation of Left middle finger, CKD; stage IV; on dapagliflozin for renal protection followed by Dr. Sadler, history of rheumatoid arthritis, history of asthma, history of COVID-19 and OA; history of lumbar contusion who presents to [facility] ER complaining of worsening Right foot wound and pain. Mrs. Dang reports her symptoms began a few days prior to admission when she was trimming her toenails and accidentally cut a piece of flesh away from her Right great toe. Initially there were no acute problems but unfortunately the affected area became infected and turned gradually more discolored with her having increasing concerns so he brought her in for further evaluation and treatment. There were no reports of associated fever, chills, nausea, vomiting, diarrhea, constipation, abdominal pain, chest pain, palpitations, heart racing, lower extremity edema, dysuria, hematuria, headache or rash. In the ER she underwent X-ray of the Right foot which revealed soft tissue edema and swelling with fragmentation/erosive changes of the tip of the distal phalanx of the big toe suspicious for Osteomyelitis with subacute healing fractures in the 3rd and 5th metatarsal bones in addition to ununited fracture in the base of the second metatarsal bone with moderate osteopenia in addition to X-ray of the Right ankle which revealed soft tissue edema and swelling overlying the medial and lateral malleoli with detached bone fragment adjacent to the base of the 4th and 5th metatarsal bone identified on the lateral view, probably representing Acute Fracture with a ER physician noting clinical evidence of Necrosis of the Right great toe with otherwise unremarkable laboratory studies and vital signs. The ER physician then spoke to the primary care sales representative on-call who recommended admission to the hospitalist service with formal consultation pending in the AM. She was then admitted to the general medical floor for ongoing care for stay that is expected to extend beyond 2 midnights. [facility] Medical History Presence of insulin pump Stage 4 chronic kidney disease Diabetes mellitus type 1 COVID-19 Cat scratch of right hand Difficulty balancing when standing Shoulder pain Kidney disease Diabetes mellitus type 1, uncontrolled, insulin dependent Old myocardial infarction Mixed hyperlipidemia Essential hypertension Hypophosphatemia Retinopathy Hearing loss Family history of hypertension Atherosclerotic heart disease of [place] coronary artery without angina pectoris Amputation of left middle finger Pericarditis ST elevation myocardial infarction (STEMI) of anterior wall Anxiety Rash Hives Asthma Rheumatoid arthritis Hypothyroidism Blindness Diabetic retinopathy Home Medications ?Medication ?Instructions ?Recorded ?Last Taken ?Type cholecalciferol (vitamin D3) 50 50 mcg PO DAILY 10/31/20 Unknown History mcg (2,000 unit) capsule ascorbic acid (vitamin C) 1,000 mg 1 g PO DAILY 04/16/21 Unknown History tablet Novopen Echo (insulin admin #1 ea 05/01/21 Unknown Rx supplies) pen needle, diabetic 32 gauge x #50 ea 05/01/21 Unknown History aspirin 81 mg tablet,delayed 81 mg PO DAILY 03/08/22 Unknown History release (Adult Low Dose Aspirin) magnesium oxide 400 mg PO DAILY 01/17/23 Unknown History nitroglycerin 0.4 mg sublingual 0.4 mg sublingual Q5M PRN chest 01/17/23 Unknown Rx tablet pain #25 tabs dapagliflozin propanediol 10 mg 10 mg PO DAILY 07/05/23 Unknown History tablet (Farxiga) carvedilol 6.25 mg tablet 3.125 mg PO BID Needs SCRIPTTALK 11/15/23 Unknown History LABELS: pt is blind ramipril 5 mg capsule 10 mg PO QDAY 02/28/24 Unknown History levothyroxine 125 mcg tablet 125 mcg PO .6 days per week 08/01/25 Unknown History clopidogrel 75 mg tablet 75 mg PO DAILY NEEDS SCRIPTTALK 08/07/25 Unknown Rx LABELS: patient is blind #90 tabs insulin aspart U-100 100 unit/mL 100 unit continuous subcutaneous 08/12/25 Unknown Rx subcutaneous solution (Novolog infusion .continuous #90 mL U-100 Insulin aspart) Allergy/AdvReac Type Severity Reaction Status Date / Time adhesive tape Allergy Severe Unknown Verified 08/23/25 00:35 latex Allergy Rash Verified 08/23/25 00:35 Family History Mother CAD (coronary artery disease) Hx of CABG Brother Hypertension Melanoma Father Atrial fibrillation Grandmother Lung cancer Brother Diabetes Other Cancer anesthesia allergy Surgical History History of cholecystectomy Hx of eye surgery Presence of stent in coronary artery (~01/23/14) History of coronary angioplasty (~11/08/13) H/O: H/O vitrectomy H/O breast augmentation History of tonsillectomy S/P appendectomy H/O angioplasty History of left heart catheterization Social History Smoking Status: Never smoker second hand exposure: No alcohol intake: current alcohol intake frequency: a few times a month substance use type: does not use caffeine: Yes Type: coffee Number of servings: 6 and tea Number of servings: 2 ROS ROS Narrative Review of Systems: Constitutional: Patient denies fever or chills. Eyes: Patient is blind from diabetic retinopathy. ENT: Patient denies runny nose, sore throat or ear pain. Resp: Patient denies shortness of breath or cough. CV: Patient denies chest pain, palpitations, heart racing or lower extremity edema. GI: Patient denies abdominal pain, nausea, vomiting, diarrhea or constipation. : Patient denies dysuria or hematuria. MSK: Patient admits to pain in right foot as per HPI. Skin: Patient's noted progressively worsening discoloration of the Right great toe as per HPI. Psych: Patient denies symptoms of uncontrolled depression or anxiety. Neuro: Patient denies headache, paresthesias or focal neurologic deficits. Allergy: Patient denies lip swelling, tongue swelling or urticaria. Hematology: Patient denies easy bleeding or easy bruisability. Endocrinology: Patient denies polyuria, polydipsia, polyphagia or heat/cold intolerance with recent endocrinology notes indicating good glycemic control. 14 point ROS otherwise negative except for positives noted above in HPI. Vital Signs Vital Signs Vital Signs: 08/23/25 00:36 08/23/25 00:39 08/23/25 01:39 Temperature 98.9 F 98.9 F 98.9 F Temperature Source Oral Oral Oral Pulse Rate 83 83 85 Respiratory Rate 18 18 18 Blood Pressure 160/69 H 160/69 H 170/57 H Blood Pressure Mean 99 99 94 Pulse Ox 100 100 100 Oxygen Delivery Method Room Air Room Air Room Air 08/23/25 02:00 08/23/25 03:00 08/23/25 04:00 Temperature 98.9 F 98.9 F 98.9 F Temperature Source Oral Oral Oral Pulse Rate 84 81 78 Respiratory Rate 18 18 18 Blood Pressure 170/57 H 162/58 H 160/51 H Blood Pressure Mean 94 92 87 Pulse Ox 100 99 100 Oxygen Delivery Method Room Air Room Air Room Air Weight Weight: 199 lb 4.766 oz Body Mass Index (BMI) 29.4 Physical Exam Const alert, oriented x3, no apparent distress and average body habitus General Appearance: cooperative HEENT normocephalic, head/scalp atraumatic, hearing grossly normal bilaterally and moist oral mucous membranes Eyes Eyes Narrative: Patient is legally blind. Neck no lymphadenopathy, supple and no JVD Resp normal respiratory effort, no retractions, no use of accessory muscles and clear to auscultation bilaterally Cardio regular rate and regular rhythm GI normal to inspection, nondistended, normoactive bowel sounds, soft to palpation, non-tender and non-distended Extremity Extremity Narrative: Patient has purplish discoloration of the Right great toe consistent with suspected necrosis and underlying osteomyelitis. Skin Skin Narrative: Patient has purplish discoloration of the Right great toe consistent with suspected necrosis and underlying osteomyelitis. Neuro oriented x3, CN's II-XII intact bilaterally, moves all extremities and no focal motor deficits Sensorium / Orientation: awake, alert, oriented to person, oriented to place and oriented to time Speech: speech normal Psych affect normal Results Medical Records Data Attestation: I reviewed the patient's medical records Lab / Micro Data Attestation: I reviewed the patient's lab results. 08/23/25 01:47 08/23/25 01:47 Labs: Laboratory Results - last 24 hr 08/23/25 01:47: WBC 10.1, RBC 4.24, Hgb 12.6, Hct 37.3, MCV 88.0, MCH 29.7, MCHC 33.8, RDW Std Deviation 42.4, RDW Coeff of Lucero 13.1, Plt Count 371, MPV 10.4, Immature Gran % (Auto) 0.500, Neut % (Auto) 75.8 H, Lymph % (Auto) 12.0 L, Mckenzie % (Auto) 9.8, Eos % (Auto) 1.3, Baso % (Auto) 0.6, Absolute Neuts (auto) 7.6, Absolute Lymphs (auto) 1.21, Nucleated RBC % 0, Sodium 136, Potassium 4.4, Chloride 102, Carbon Dioxide 18.8 L, Anion Gap 15, BUN 35 H, Creatinine 2.12 H, Estim Creat Clear Calc 35.92 L, Est GFR (MDRD) Non-Af 27 L, BUN/Creatinine Ratio 16.4, Glucose 102 H, Lactic Acid < 1.0, Calcium 9.2, Procalcitonin 0.44 H Imaging Radiology Impression Foot X-Ray 08/23/25 01:34 IMPRESSION: Soft tissue edema and swelling. Fragmentation/erosive changes of the tip of the distal phalanx of the big toe, suspicious for osteomyelitis. Subacute healing fractures in the 3rd and 5th metatarsal bones. Ununited fracture in the base of the 2nd metatarsal bone. Moderate osteopenia. Hallux valgus deformity. Hammertoes deformities of the 2nd through 5th toes. Reading [facility] Ankle X-Ray 08/23/25 02:00 IMPRESSION: Soft tissue edema and swelling overlying the medial and lateral malleoli. Detached bone fragment adjacent to the base of the 4th or 5th metatarsal bone identified on the lateral view, probably presenting acute fracture. [facility] Assessment & Plan Assessment/Plan (1) Osteomyelitis due to type 1 diabetes mellitus: (2) Metatarsal bone fracture: QUALIFIERS: Encounter type: initial encounter Fracture alignment: nondisplaced Fracture type: closed Laterality: right Metatarsal bone: fourth Qualified Code(s): S92.344A - Nondisplaced fracture of fourth metatarsal bone, right foot, initial encounter for closed fracture (3) Diabetes mellitus type 1: QUALIFIERS: Diabetes mellitus complication status: with hyperglycemia Qualified Code(s): E10.65 - Type 1 diabetes mellitus with hyperglycemia (4) Presence of insulin pump: (5) Presence of stent in coronary artery: (6) Overweight (BMI 25.0-29.9): (7) Stage 4 chronic kidney disease: PLAN: Plan 1. X-ray of the Right foot which revealed soft tissue edema and swelling with fragmentation/erosive changes of the tip of the distal phalanx of the big toe suspicious for Osteomyelitis with subacute healing fractures in the 3rd and 5th metatarsal bones in addition to ununited fracture in the base of the second metatarsal bone with moderate osteopenia in addition to X-ray of the Right ankle which revealed soft tissue edema and swelling overlying the medial and lateral malleoli with detached bone fragment adjacent to the base of the 4th and 5th metatarsal bone identified on the lateral view, probably representing Acute Fracture with a ER physician noting clinical evidence of Necrosis of the Right great toe - Admit to general medical floor. Continue empiric IV vancomycin and IV piperacillin-tazobactam began in ER and await culture and sensitivity data. Give acetaminophen as needed for [id number] (level 1-5/10) pain or fever. Give morphine IV as needed for severe (level 6-10/10) pain. Give ondansetron IV as needed for nausea vomiting. Finally, we will consult primary care sales representative on-call to see this patient on rounds in the a.m. for further recommendations regarding potential amputation with help appreciated in advance. 2. DM-1; well-controlled on insulin pump complicating #1 - Continue insulin pump for now with patient previously demonstrating excellent ability to manage her blood glucose. 3. CAD; s/p STEMI with subsequent mid-RCA stent with angioplasty to LAD and proximal PDA at [facility] (~2013) on baby aspirin, clopidogrel and as needed SL NTG compounding #1 & #2 - Hold baby aspirin and clopidogrel with likely need for surgical intervention from podiatry. Give SL NTG as needed for anginal type chest pain. 4. Overweight; BMI of 29.4 this admission adding to the burden of disease outlined from #1 - #3 - Weight loss was recommended. Check TSH. This complicates her case and may hamper recovery. 5. CKD; stage IV; on dapagliflozin for renal protection followed by Dr. Hermosillo - Stable with serum creatinine of 2.12 mg/dL and BUN of 35 mg/dL with eGFR of 27 mL/min which is close to her baseline level. We will hold dapagliflozin until need for surgery is clarified. 6. Essential hypertension; on ramipril and carvedilol twice daily - Continue present therapy plus give prn IV hydralazine for systolic blood pressure > 160 mmHg. 7. 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 8. Diabetic retinopathy; with legal blindness - Stable. 9. History of syncope and collapse - Noted with no evidence of recurrence at this time. 10. History of pericarditis - Noted. 11. History of mild concentric LVH; stage I diastolic dysfunction and normal LVEF ~65% (on last echo done here 05/2022) - Noted. Check new echocardiogram to evaluate LVEF with likely impending surgery and complicated medical history. 12. History of amputation of Left middle finger - Noted. 13. History of rheumatoid arthritis - Stable with no evidence of acute flare at this time. 14. History of asthma - Stable with no evidence of acute flare at this time. Give nebulizers as needed. 15. History of COVID-19 - Noted. 16. OA; history of lumbar contusion - Give acetaminophen as needed as outlined in #1. 17. DVT prophylaxis - SCD's only with likely impending surgical intervention. Total time: Approximately (but not less than) 75 minutes. Charges/Coding Visit Charges Inpatient E&M: 34377 Init Hosp L3
--- NOTE | 2025-08-23 04:36 | EDS_ITS ---
HPI History of Present Illness Chief Complaint: Wound Informant: patient and spouse/S.O. Narrative Narrative: Patient is a 54-year-old female with past medical history of hypertension hyperlipidemia hypothyroidism chronic kidney disease and type 1 diabetes managed by insulin pump. She states roughly 1 week ago she tripped and rolled her right ankle. She states when she was inspecting her foot and ankle following the injury she noticed that her toenail seemed abnormal and therefore she took a pair of nail clippers and trimmed it. She states she may have actually taken a small piece of the skin with it. She states she did not think anything of this but as time passed her symptoms were persistent and when her looked at her foot today he noticed swelling redness and necrosis of her great toe and foot and with concern for infection she was brought in for evaluation The patient states she has not had any fevers or chills. She denies any increased pain to the area. 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 Pericarditis ST elevation myocardial infarction (STEMI) of anterior wall Anxiety Rash Hives Asthma Rheumatoid arthritis Hypothyroidism Blindness Diabetic retinopathy Home Medications ?Medication ?Instructions ?Recorded ?Last Taken ?Type cholecalciferol (vitamin D3) 50 50 mcg PO DAILY Unknown History mcg (2,000 unit) capsule ascorbic acid (vitamin C) 1,000 mg 1 g PO DAILY Unknown History tablet Novopen Echo (insulin admin #1 ea 05/01/21 Unknown Rx supplies) pen needle, diabetic 32 gauge x #50 ea 05/01/21 Unknow n History aspirin 81 mg tablet,delayed 81 mg PO DAILY 03/08/22 U nknown History release (Adult Low Dose Aspirin) magnesium oxide 400 mg PO DAILY 01/17/23 Unk nown History nitroglycerin 0.4 mg sublingual 0.4 mg sublingual Q5M PRN chest 01/17/23 Unknown Rx tablet pain #25 tabs dapagliflozin propanediol 10 mg 10 mg PO DAILY 3 Unknown History tablet (Farxiga) carvedilol 6.25 mg tablet 3.125 mg PO BID Needs SCRIPT TALK 11/15/23 Unknown History LABELS: pt is blind ramipril 5 mg capsule 10 mg PO QDAY 02/28/24 Unkno wn History levothyroxine 125 mcg tablet 125 mcg PO .6 days per we ek 08/01/25 Unknown History clopidogrel 75 mg tablet 75 mg PO DAILY NEEDS SCRIPTT ALK 08/07/25 Unknown Rx LABELS: patient is blind #90 tabs insulin aspart U-100 100 unit/mL 100 unit continuous s ubcutaneous 08/12/25 Unknown Rx subcutaneous solution (Novolog infusion .continuous #9 0 mL U-100 Insulin aspart) Allergy/AdvReac Type Severity Reaction Status Date / Time adhesive tape Allergy Severe Unknown Verified 08/23/25 00:35 latex Allergy Rash Verified 08/23/25 00:35 Family History Mother CAD (coronary artery disease) Hx of CABG Brother Hypertension Melanoma Father Atrial fibrillation Grandmother Lung cancer Brother Diabetes Other Cancer anesthesia allergy Surgical History History of cholecystectomy Hx of eye surgery Presence of stent in coronary artery (~01/23/14) History of coronary angioplasty (~11/08/13) H/O: H/O vitrectomy H/O breast augmentation History of tonsillectomy S/P appendectomy H/O angioplasty History of left heart catheterization Social History Smoking Status: Never smoker second hand exposure: No alcohol intake: current alcohol intake frequency: a few times a month substance use type: does not use caffeine: Yes Type: coffee Number of servings: 6 and tea Number of servings: 2 ROS ROS ED Constitutional Constitutional ED: Denies chills or fever(s) Eyes Eyes: Reports other Details: Patient reports chronic vision loss/blindness ENT ENT ED: Denies sore throat Cardiovascular Cardiovascular: Denies chest pain Respiratory/Chest Respiratory/Chest: Denies cough or dyspnea Gastrointestinal Gastrointestinal: Denies abdominal pain, diarrhea, nausea or vomiting Musculoskeletal Musculoskeletal: Reports other Details: Positive right foot and ankle pain Integumentary Reports other Details: Positive wound right great toe Neurologic Neurologic: Denies headache(s) Hematologic/Lymphatic Hematologic/Lymphatic: Denies easy bleeding or easy bruising EXAM Physical Exam Const Vital Signs: 08/23/25 00:36 08/23/25 00:39 08/23/25 01:39 Temperature 98.9 F 98.9 F 98.9 F Temperature Source Oral Oral Oral Pulse Rate 83 83 85 Respiratory Rate 18 18 18 Blood Pressure 160/69 H 160/69 H 170/57 H Blood Pressure Mean 99 99 94 Pulse Ox 100 100 100 Oxygen Delivery Method Room Air Room Air Room Air 08/23/25 02:00 08/23/25 03:00 08/23/25 04:00 Temperature 98.9 F 98.9 F 98.9 F Temperature Source Oral Oral Oral Pulse Rate 84 81 78 Respiratory Rate 18 18 18 Blood Pressure 170/57 H 162/58 H 160/51 H Blood Pressure Mean 94 92 87 Pulse Ox 100 99 100 Oxygen Delivery Method Room Air Room Air Room Air 08/23/25 04:33 08/23/25 05:00 Temperature 98.2 F 98.2 F Temperature Source Oral Pulse Rate 81 76 Respiratory Rate 18 16 Blood Pressure 148/56 H 179/52 H Blood Pressure Mean 86 94 Pulse Ox 100 96 Oxygen Delivery Method Room Air Positive well nourished and well developed General Appearance ED: well developed HEENT HEENT Narrative: Normocephalic atraumatic Neck supple Neck Narrative: No nuchal rigidity or meningeal signs Resp normal respiratory effort and clear to auscultation bilaterally Cardio regular rate and regular rhythm GI normal to inspection, nondistended, normoactive bowel sounds, non-tender, non- distended and no masses GI Narrative: No voluntary guarding or rigidity or pulsatile mass Auscultation: normoactive bowel sounds Palpation: soft Extremity Extremity Narrative: Patient has necrosis to the distal aspect/tip of the right great toe this extends to just in front of the nailbed. Along the plantar aspect of the great toe extending to the MTP joint is soft tissue skin breakdown that is dermal layer deep. There is asymmetric swelling and redness and warmth starting around the proximal phalanx of the great toe and this extends over the dorsal aspect of the right foot with slight streaking on the anterior aspect just above the ankle. Neuro oriented x3 and CN's II-XII intact bilaterally Sensorium / Orientation: alert Psych mental status grossly normal Skin Skin Narrative: Lesions of the right great toe and right foot as documented above consistent with necrosis as well as cellulitis MDM MDM MDM Narrative Medical decision making narrative: Patient arrived to the ER hypertensive but has a past medical history of this. Her physical exam showed necrosis to the distal aspect of the right great toe. With her history of type 1 diabetes there is high likelihood for the onset of osteomyelitis. Coupled with this is concern for potential developing systemic infection as she does have asymmetric redness and warmth with slight streaking into the carvalho just above the ankle. As there is high concern for osteomyelitis blood cultures were obtained and patient was started on vancomycin and Zosyn. A n x-ray of the foot was obtained which does show changes concerning for osteomyelitis. Despite the necrosis of her digit and the x-ray showing changes concerning for osteomyelitis she does not have a white count or left shift her lactic acid is normal and her Pro-Ramses is only slightly elevated at 0.44. The case was discussed with brinell tester Dr. Henderson. He states at this time the safest option would be admission for continued antibiotics as well as MRI of the foot. He states that if the MRI shows osteomyelitis then he can perform an amputation while she is in the hospital. If it shows no findings for osteomyelitis then he can help with wound care regarding the necrotic digit. Secondary to this the case was discussed with the hospitalist. He agrees to accept the patient for continued evaluation and treatment. Plan of care was discussed with the patient who is agreeable to it and therefore should be admitted to the hospitalist service for her great toe necrosis and osteomyelitis History & Record Review Discussion w/independent historian: Patient and Significant other Lab Data Attestation: I reviewed the patient's lab results. Labs: Laboratory Results - last 24 hr 08/23/25 01:47 WBC 10.1 RBC 4.24 Hgb 12.6 Hct 37.3 MCV 88.0 MCH 29.7 MCHC 33.8 RDW Std Deviation 42.4 RDW Coeff of [place] 13.1 Plt Count 371 MPV 10.4 Immature Gran % (Auto) 0.500 Neut % (Auto) 75.8 H Lymph % (Auto) 12.0 L [place] % (Auto) 9.8 Eos % (Auto) 1.3 Baso % (Auto) 0.6 Absolute Neuts (auto) 7.6 Absolute Lymphs (auto) 1.21 Nucleated RBC % 0 Sodium 136 Potassium 4.4 Chloride 102 Carbon Dioxide 18.8 L Anion Gap 15 BUN 35 H Creatinine 2.12 H Estim Creat Clear Calc 35.92 L Est GFR (MDRD) Non-Af 27 L BUN/Creatinine Ratio 16.4 Glucose 102 H Lactic Acid < 1.0 Calcium 9.2 Procalcitonin 0.44 H Radiography Diagnostic Testing: Clinical Impression(s) from Imaging Studies Foot X-Ray 08/23/25 01:34 IMPRESSION: Soft tissue edema and swelling. Fragmentation/erosive changes of the tip of the distal phalanx of the big toe, suspicious for osteomyelitis. Subacute healing fractures in the 3rd and 5th metatarsal bones. Ununited fracture in the base of the 2nd metatarsal bone. Moderate osteopenia. Hallux valgus deformity. Hammertoes deformities of the 2nd through 5th toes. Reading Location: [place] [id number] Ankle X-Ray 08/23/25 02:00 IMPRESSION: Soft tissue edema and swelling overlying the medial and lateral malleoli. Detached bone fragment adjacent to the base of the 4th or 5th metatarsal bone identified on the lateral view, probably presenting acute fracture. [id number] of the right foot as interpreted by the emergency medicine physician reveals erosive changes to the tip of the great toe concerning for osteomyelitis X-ray of the ankle as interpreted by the emergency medicine physician reveals no acute medial or lateral malleoli fracture or fracture to the distal fibula. There is a bone fragment adjacent to the fifth metatarsal concerning for acute/subacute fracture Management Discussion w/another healthcare provider: Hospitalist and Internet Specialist Discharge Plan Dx/Rx/DC Orders Clinical Impression: Diabetes mellitus type 1, Osteomyelitis due to type 1 diabetes mellitus, Hypothyroidism, Essential hypertension, Mixed hyperlipidemia, Chronic kidney disease Disposition Disposition: [facility]
--- NOTE | 2025-08-23 05:13 | ECHOD_ITS ---
Reason For Study Reason For Study: PREOPERATIVE (RT foot wound) Procedure This was a 2D Doppler, Color Flow transthoracic echocardiogram. The study was technically difficult. PT declined Definity enhancement. Exam performed portable in patient room. Left Ventricle Normal LV size. Mild concentric left ventricular hypertrophy. Grossly normal systolic function with an EF of 65%. Stage 1 diastolic dysfunction. Right Ventricle Normal right ventricle. Grossly normal systolic function. Atria Normal left atrium. Normal right atrium. Mitral Valve Severe mitral annular calcification. There is no mitral valve stenosis. Trivial mitral valve insufficiency. Tricuspid Valve Normal tricuspid valve. Trivial tricuspid valve insufficiency. Pulmonary artery systolic pressure is 18 mmHg. Aortic Valve Trisinus/trileaflet aortic valve. Pulmonic Valve Normal pulmonic valve. Great Vessels Normal sized aortic root. Pericardium/Pleural Small (<1.0 cm) pericardial effusion. There are no echocardiographic indications of cardiac tamponade. MMode/2D Measurements & Calculations LVIDd: 4.6 cm IVSd: 1.2 cm Ao root diam: 2.9 cm LVIDs: 3.2 cm LVPWd: 1.2 cm RVDd: 2.8 cm FS: 31.9 % LAV(MOD-bp): 34.7 ml LVAd ap4: 18.4 cm2 SV(MOD-sp4): 27.3 ml LAV(MOD-bp) Indexed: 16.8 ml/m2 LVLd ap4: 5.9 cm SI(MOD-sp4): 13.2 ml/m2 LAV(MOD-sp2): 34.6 ml EDV(MOD-sp4): 46.4 ml LAV(MOD-sp4): 32.1 ml EDV(sp4-el): 48.5 ml LVAs ap4: 10.7 cm2 LVLs ap4: 5.0 cm ESV(MOD-sp4): 19.1 ml ESV(sp4-el): 19.4 ml EF(MOD-sp4): 58.8 % EF(sp4-el): 60.1 % SV(sp4-el): 29.2 ml LA A4 area: 13.4 cm2 LA dimension(2D): 3.8 cm RA A4 area: 10.6 cm2 TAPSE: 1.9 cm Time Measurements MV dec time: 0.21 sec Doppler Measurements & Calculations MV E max chase: 107.5 cm/sec Lat Peak E' Chase: 7.0 cm/sec Med Peak E' Chase: 11.3 cm/sec MV A max chase: 137.1 cm/sec E/E' lat: 15.3 E/E' med: 9.5 MV E/A: 0.78 MV V2 max: 156.2 cm/sec MV P1/2t max chase: 133.7 cm/sec Ao V2 max: 187.9 cm/sec MV max P.8 mmHg MV P1/2t: 69.2 msec Ao max P.1 mmHg MV V2 mean: 94.9 cm/sec Ao V2 mean: 147.8 cm/sec MV mean P.0 mmHg MV dec slope: 566.4 cm/sec2 Ao mean P.4 mmHg MV V2 VTI: 40.0 cm MVA(P1/2t): 3.2 cm2 Ao V2 VTI: 46.1 cm AV (velocity ratio): 0.76 LV V1 max: 158.2 cm/sec PA V2 max: 135.6 cm/sec TR max chase: 160.5 cm/sec LV V1 max P.0 mmHg PA V2 mean: 99.8 cm/sec TR max P.3 mmHg LV V1 mean P.4 mmHg LV V1 mean: 120.7 cm/sec LV V1 VTI: 34.9 cm ECHO/Echo Complete Interpretation Summary Grossly normal systolic function with an EF of 65% Stage 1 diastolic dysfunction. Mild concentric left ventricular hypertrophy. Severe mitral annular calcification. Small (<1.0 cm) pericardial effusion. The study was technically difficult. Ordering Physician: Brando Garduno Referring Physician: Joni Campo Performed By: Dolly May, KEMI, RVT
--- OUTSIDE RECORDS SUMMARY | 2025-08-23 05:54 | XMS RPT_ITS | CCD ---
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 Joni Campo Primary Care Provider Dr. Joni Campo Referring Provider Dr. Danyel Mendez Attending Provider OSVALDO Vázquez NP Attending Provider Dr. Sanford Dave Attending Provider Dr. Joni Campo Primary Care Provider Dr. Joni Campo Primary Care Provider Dr. Sanford Dave Attending Provider [phone] [...] Provider Dr. Joni Campo Primary Care Provider [phone] Dr. Joni Campo Referring Provider [phone] Dr. Danyel Mendez Attending Provider [phone] Farshad PEDRAZA, MILO Tolbert Attending Provider Dr. Joni Campo MD Primary Care Provider Dr. Joni Campo MD Referring Provider [phone] Dr. Danyel Mendez MD Attending Provider Nargis Brandon Attending Provider Griselda HOUSETRAILER SERVICER-CNargis Referring Provider Alber VINCENT, Dr. Quinones Attending Provider Alber VINCENT, Dr. Quinones Primary Care Physician Dr. Danyel Mendez MD Attending Physician Jaimee VINCENT, Dr. Euceda Referring Provider Joni Campo Attending Unavailable Campo, Joni Referring [...] [adhesive tape] Allergy to substance 04-28-2022 Unknown [facility] (9 sources) Latex Allergy to substance 04-28-2022 Rash [facility] (1 source) Latex Drug allergy (disorder) 03-26-2025 [facility] Repository Medications Current Medications Medication Drug [...] 2015 12:00am May 02, 2020 5:10pm heart [facility] heart protection carvedilol 6.25 mg oral tablet [...] D Start: 10-31-2020 take 1 capsule by [facility] once daily Start: 08-11-2018 End: 05-02-2020 take [...] above: angioplasty to LAD; no stent @ [facility] 11/08/13; PTCA/MARCUS to mid RCA; angioplasty of prox PDA @ [facility] 01/23/14 Diabetes mellitus with complications (19 sources) [...] PDA 01/23/[address] Glenn Merino at [facility] Diabetes mellitus without complication (2 sources) [...] 07-31-2025 Anion gap [Moles/Vol] 12 mmol/L 5-15 [facility] BUN/creatinine ratioOrdered By: Danyel Mendez on 07-31-2025 Urea nitrogen/Creatinine [Mass ratio] 22.4 mg/mg High 10-20 [facility] Basic Metabolic Profile (BMP )on 07-31-2025 BUN Normal 4-19 [facility] Comment on above: Order Comment: Order Date: 09/04/24 Order Info: 0667-1 - BMP Order Date: 07/13/24 Order Info: 0786-1 - CMP Order Info: [id number] - LIPID Result Comment: EXPI RED ORDERS Performed By: #### L 500.2500 #### [facility] [address] [place], [place], [address] BUN/CRE Normal - [facility] Comment on above: Order Comment: Order Date: 09/04/24 Order Info: 67- - BMP Order Date: 07/13/24 Order Info: 0786-1 - CMP Order Info: [id number] - LIPID Result Comment: EXPI RED ORDERS Performed By: #### L 500.2500 #### [facility] [address] [place], [address] Calcium Normal 7.6-11.0 [facility] Comment on above: Order Comment: Order Date: 09/04/24 Order Info: 0667-1 - BMP Order Date: 07/13/24 Order Info: 0786-1 - CMP Order Info: [id number] - LIPID Result Comment: EXPI RED ORDERS Performed By: #### L 500.2500 #### [facility] [address] [place], [address] CL Normal 98-108 [facility] Comment on above: Order Comment: Order Date: 09/04/24 Order Info: 666- - BMP Order Date: 07/13/24 Order Info: 0786-1 - CMP Order Info: [id number] - LIPID Result Comment: EXPI RED ORDERS Performed By: #### L 500.2500 #### [facility] [address] [place], [place], [address] CO2 Normal 21.0-32.0 [facility] Comment on above: Order Comment: Order Date: 09/04/24 Order Info: 666- - BMP Order Date: 07/13/24 Order Info: 86-1 - CMP Order Info: [id number] - LIPID Result Comment: EXPI RED ORDERS Performed By: #### L 500.2500 #### [facility] [address] [place], [address] CREAT,SERUM Normal 0.70-1.20 [facility] Comment on above: Order Comment: Order Date: 09/04/24 Order Info: 666- - BMP Order Date: 07/13/24 Order Info: 785- - CMP Order Info: [id number] - LIPID Result Comment: EXPI RED ORDERS Performed By: #### L 500.2500 #### [facility] [address] [place], [address] eGFR Normal >60 [facility] Comment on above: Order Comment: Order Date: 09/04/24 Order Info: 666-11 - BMP Order Date: 07/13/24 Order Info: 785-1 - CMP Order Info: [id number] - LIPID Result Comment: EXPI RED ORDERS Performed By: #### L 500.2500 #### [facility] [address] [place], [address] GAP Normal 5-15 [facility] Comment on above: Order Comment: Order Date: 09/04/24 Order Info: 666- - BMP Order Date: 07/13/24 Order Info: 0786-1 - CMP Order Info: [id number] - LIPID Result Comment: EXPI RED ORDERS Performed By: #### L 500.2500 #### [facility] [address] [place], [address] GLU Normal 70-99 [facility] Comment on above: Order Comment: Order Date: 09/04/24 Order Info: 0667-1 - BMP Order Date: 07/13/24 Order Info: 0786-1 - CMP Order Info: [id number] - LIPID Result Comment: EXPI RED ORDERS Performed By: #### L 500.2500 #### [facility] [address] [place], [address] Potassium Normal 3.3-5.1 [facility] Comment on above: Order Comment: Order Date: 09/04/24 Order Info: 666- - BMP Order Date: 07/13/24 Order Info: 785-1 - CMP Order Info: [id number] - LIPID Result Comment: EXPI RED ORDERS Performed By: #### L 500.2500 #### [facility] [address] [place], [address] Basic Metabolic Profile (BMP) Normal 133-145 [facility] Comment on above: Order Comment: Order Date: 09/04/24 Order Info: 666- - BMP Order Date: 07/13/24 Order Info: 86-1 - CMP Order Info: [id number] - LIPID Result Comment: EXPI RED ORDERS Performed By: #### L 500.2500 #### [facility] [address] [place], [address] CBC-Complete Blood Cnt No Di ffon 07-31-2025 Erythrocyte distribution width (RBC) [Ratio] 13.5 % Normal 11.6-14.6 [facility] Comment on above: Performed By: #### L 506.1001, L100.0500, L500.3600, L509.1000, L501.0900 ####[facility] [address] [place], [address] Hematocrit (Bld) [Volume fraction] 39.6 % Normal 37-47 [facility] Comment on above: Performed By: #### L 506.1001, L100.0500, L500.3600, L509.1000, L501.0900 ####[facility] [address] [place], [address] Hemoglobin (Bld) [Mass/Vol] 13.1 g/dL Normal 12.0-15. 0 [facility] Comment on above: Performed By: #### L 506.1001, L100.0500, L500.3600, L509.1000, L501.0900 ####[facility] [address] [place], [address] MCH (RBC) [Entitic mass] 29.4 pg Normal 27.0-32.0 [facility] Comment on above: Performed By: #### L 506.1001, L100.0500, L500.3600, L509.1000, L501.0900 ####[facility] [address] [place], [address] MCHC (RBC) [Mass/Vol] 33.1 g/dL Normal 32-36 [facility] Comment on above: Performed By: #### L 506.1001, L100.0500, L500.3600, L509.1000, L501.0900 ####[facility] [address] [place], [address] MCV (RBC) [Entitic vol] 88.8 fL Normal 81-99 [facility] Comment on above: Performed By: #### L 506.1001, L100.0500, L500.3600, L509.1000, L501.0900 ####[facility] [address] [place], [address] Platelet mean volume (Bld) [Entitic vol] 11.2 fL Normal 6.2-12.0 [facility] Comment on above: Performed By: #### L 506.1001, L100.0500, L500.3600, L509.1000, L501.0900 ####[facility] [address] [place], [address] Platelets (Bld) [#/Vol] 269 10*3/uL Normal 150-450 [facility] Comment on above: Performed By: #### L 506.1001, L100.0500, L500.3600, L509.1000, L501.0900 ####[facility] [address] [place], [address] RBC (Bld) [#/Vol] 4.46 10*6/uL Normal 4.2-5.4 [facility] Comment on above: Performed By: #### L 506.1001, L100.0500, L500.3600, L509.1000, L501.0900 ####[facility] [address] [place], [address] RDW SD 44.1 fl High 35.1-43.9 [facility] Comment on above: Performed By: #### L 506.1001, L100.0500, L500.3600, L509.1000, L501.0900 ####[facility] [address] [place], [address] WBC (Bld) [#/Vol] 6.2 10*3/uL Normal 4.4-11.0 [facility] Comment on above: Performed By: #### L 506.1001, L100.0500, L500.3600, L509.1000, L501.0900 ####[facility] [address] [place], [address] Carbon dioxide, total [Moles /volume] in Central venous bloodOrdered By: Danyel Mendez on 07-31-2025 CO2 [Moles/Vol] 19.7 mmol/L Low 21.0-32.0 [facility] Chloride assayOrdered By: Thang Mendez on 07-31-2025 Chloride [Moles/Vol] 108 mmol/L 98-108 [facility] Erythrocyte distribution wid th ratioOrdered By: Danyel Mendez on 07-31-2025 Erythrocyte distribution width (RBC) [Ratio] 13.5 % 11.6-14.6 [facility] Erythrocyte distribution wid th standard deviationOrdered By: Danyel Mendez on 07-31-2025 Erythrocyte distribution width (RBC) [Ratio] 44.1 fl High 35.1-43.9 [facility] Glomerular filtration rate ( GFR) estimation/1.73 sq m using serum, plasma, or whole bOrdered By: Danyel Mendez on 07-31-2025 GFR/1.73 sq M.predicted among non-blacks MDRD (S/P/Bld) [Vol rate/Area] 34 mL/min/{1.73_m2} Low >60 [facility] Comment on above: mL/min/1.73m2 CKD-EP I Creatinine Equation (2020) Hematocrit Auto (Bld) [Volum e fraction]Ordered By: Danyel Mendez on 07-31-2025 Hematocrit (Bld) [Volume fraction] 39.6 % 37-47 [facility] Hemoglobin measurementOrdere d By: Danyel Mendez on 07-31-2025 Hemoglobin (Bld) [Mass/Vol] 13.1 g/dL 12.0-15. 0 [facility] Lipid Profileon 07-31-2025 CHOL Normal <=200 [facility] Comment on above: Order Comment: Order Date: 09/04/24 Order Info: 0667-1 - BMP Order Date: 07/13/24 Order Info: 0786-1 - CMP Order Info: [id number] - LIPID Result Comment: EXPI RED ORDERS Performed By: #### L 500.4100 #### [facility] [address] [place], [place], [address] CHOL:HDL Normal [facility] Comment on above: Order Comment: Order Date: 09/04/24 Order Info: 0667-1 - BMP Order Date: 07/13/24 Order Info: 0786-1 - CMP Order Info: [id number] - LIPID Result Comment: EXPI RED ORDERS Performed By: #### L 500.4100 #### [facility] [address] [place], [address] CLDL Normal [facility] Comment on above: Order Comment: Order Date: 09/04/24 Order Info: 666-1 - BMP Order Date: 07/13/24 Order Info: 0786-1 - CMP Order Info: [id number] - LIPID Result Comment: EXPI RED ORDERS Performed By: #### L 500.4100 #### [facility] [address] [place], [address] HDL Normal [facility] Comment on above: Order Comment: Order Date: 09/04/24 Order Info: 666- - BMP Order Date: 07/13/24 Order Info: 0786-1 - CMP Order Info: [id number] - LIPID Result Comment: EXPI RED ORDERS Performed By: #### L 500.4100 #### [facility] [address] [place], [address] TRIG Normal [facility] Comment on above: Order Comment: Order Date: 09/04/24 Order Info: 666- - BMP Order Date: 07/13/24 Order Info: 785- - CMP Order Info: [id number] - LIPID Result Comment: EXPI RED ORDERS Performed By: #### L 500.4100 #### [facility] [address] [place], [address] VLDL Normal 5-40 [facility] Comment on above: Order Comment: Order Date: 09/04/24 Order Info: 666- - BMP Order Date: 07/13/24 Order Info: 0786-1 - CMP Order Info: [id number] - LIPID Result Comment: EXPI RED ORDERS Performed By: #### L 500.4100 #### [facility] [address] [place], [address] Liver Profileon 07-31-2025 ALB Normal 3.5-5.0 [facility] Comment on above: Order Comment: Order Date: 09/04/24 Order Info: 666-1 - BMP Order Date: 07/13/24 Order Info: 785-11 - CMP Order Info: - LIPID Result Comment: EXPI RED ORDERS Performed By: #### L 500.3400 #### [facility] [address] [place], [address] ALK PHOS Normal 35-104 [facility] Comment on above: Order Comment: Order Date: 09/04/24 Order Info: 666-11 - BMP Order Date: 07/13/24 Order Info: 785-11 - CMP Order Info: - LIPID Result Comment: EXPI RED ORDERS Performed By: #### L 500.3400 #### [facility] [address] [place], [address] ALT Normal <=34 [facility] Comment on above: Order Comment: Order Date: 09/04/24 Order Info: 666-11 - BMP Order Date: 07/13/24 Order Info: 785-11 - CMP Order Info: - LIPID Result Comment: EXPI RED ORDERS Performed By: #### L 500.3400 #### [facility] [address] [place], [address] AST Normal <=31 [facility] Comment on above: Order Comment: Order Date: 09/04/24 Order Info: 666-11 - BMP Order Date: 07/13/24 Order Info: 785-11 - CMP Order Info: - LIPID Result Comment: EXPI RED ORDERS Performed By: #### L 500.3400 #### [facility] [address] [place], [address] D BILI Normal 0.00-0.30 [facility] Comment on above: Order Comment: Order Date: 09/04/24 Order Info: 666-11 - BMP Order Date: 07/13/24 Order Info: 785-11 - CMP Order Info: - LIPID Result Comment: EXPI RED ORDERS Performed By: #### L 500.3400 #### [facility] [address] [place], [place], [address] T BILI Normal 0.00-1.30 [facility] Comment on above: Order Comment: Order Date: 09/04/24 Order Info: 0667-1 - BMP Order Date: 07/13/24 Order Info: 0786-1 - CMP Order Info: [id number] - LIPID Result Comment: EXPI RED ORDERS Performed By: #### L 500.3400 #### [facility] [address] [place], [address] T PROT Normal 5.9-8.4 [facility] Comment on above: Order Comment: Order Date: 09/04/24 Order Info: 0667-1 - BMP Order Date: 07/13/24 Order Info: 0786-1 - CMP Order Info: [id number] - LIPID Result Comment: EXPI RED ORDERS Performed By: #### L 500.3400 #### [facility] [address] [place], [address] MCV (mean corpuscular volume ) determinationOrdered By: Danyel Mendez on 07-31-2025 MCV (RBC) [Entitic vol] 88.8 fL 81-99 [facility] Mean corpuscular hemoglobin (MCH) determinationOrdered By: Danyel Mendez on 07-31-2025 MCH (RBC) [Entitic mass] 29.4 pg 27.0-32.0 [facility] Mean corpuscular hemoglobin concentration (MCHC) determinationOrdered By: Danyel Mendez on 07-31-2025 MCHC (RBC) [Mass/Vol] 33.1 g/dL 32-36 [facility] Mean platelet volume determi nationOrdered By: Danyel Mendez on 07-31-2025 Platelet mean volume (Bld) [Entitic vol] 11.2 fL 6.2-12.0 [facility] PTHINon 07-31-2025 PTH 76 pg/mL High 11-61 [facility] Comment on above: Performed By: #### L 506.1001, L100.0500, L500.3600, L509.1000, L501.0900 ####[facility] [address] [place], [address] Platelet countOrdered By: Thang Mendez on 07-31-2025 Platelets (Bld) [#/Vol] 269 10*3/uL 150-450 [facility] Potassium measurement (mass/ volume)Ordered By: Danyel Mendez on 07-31-2025 Potassium (Unsp spec) [Mass/Vol] 4.4 mmol/L 3.3-5.1 [facility] Protein+Creatinine Ratio,Uri neon 07-31-2025 PROT:CRE RATIO 80 mg/g CRE Normal 0-200 [facility] Comment on above: Performed By: #### L 506.1001, L100.0500, L500.3600, L509.1000, L501.0900 ####[facility] [address] [facility] [place], [address] Protein (U) [Mass/Vol] 10.3 mg/dL Normal 0.0-12.0 [facility] Comment on above: Performed By: #### L 506.1001, L100.0500, L500.3600, L509.1000, L501.0900 ####[facility] [address] [place], [address] RBC Auto (Bld) [#/Vol]Ordere d By: Danyel Mendez on 07-31-2025 RBC (Bld) [#/Vol] 4.46 10*6/uL 4.2-5.4 [facility] Random urine creatinine buck urement (mass/volume)Ordered By: Danyel Mendez on 07-31-2025 Creatinine Unsp time (U) [Mass/Vol] 129.00 mg/dL 28.00-217.0 0 [facility] Renal Profileon 07-31-2025 Albumin [Mass/Vol] 3.9 g/dL Normal 3.5-5.0 [facility] Comment on above: Performed By: #### L 506.1001, L100.0500, L500.3600, L509.1000, L501.0900 ####[facility] [address] [place], [address] BUN/CRE 22.4 RATIO High 10-20 [facility] Comment on above: Performed By: #### L 506.1001, L100.0500, L500.3600, L509.1000, L501.0900 ####[facility] [address] [place], [address] Calcium [Mass/Vol] 9.5 mg/dL Normal 7.6-11.0 [facility] Comment on above: Performed By: #### L 506.1001, L100.0500, L500.3600, L509.1000, L501.0900 ####[facility] [address] [place], [address] Chloride [Moles/Vol] 108 mmol/L Normal 98-108 [facility] Comment on above: Performed By: #### L 506.1001, L100.0500, L500.3600, L509.1000, L501.0900 ####[facility] [address] [place], [address] CO2 [Moles/Vol] 19.7 mmol/L Low 21.0-32.0 [facility] Comment on above: Performed By: #### L 506.1001, L100.0500, L500.3600, L509.1000, L501.0900 ####[facility] [address] [place], [address] Creatinine [Mass/Vol] 1.77 mg/dL High 0.70-1.20 [facility] Comment on above: Performed By: #### L 506.1001, L100.0500, L500.3600, L509.1000, L501.0900 ####[facility] [address] [place], [address] GAP 12 Normal 5-15 [facility] Comment on above: Performed By: #### L 506.1001, L100.0500, L500.3600, L509.1000, L501.0900 ####[facility] [address] [place], [address] GFR/1.73 sq M.predicted among non-blacks MDRD (S/P/Bld) [Vol rate/Area] 34 mL/min/{1.73_m2} Low >60 [facility] Comment on above: Result Comment: mL/m in/1.73m2 CKD-EPI Creatinine Equation (2020) Performed By: #### L 506.1001, L100.0500, L500.3600, L509.1000, L501.0900 ####[facility] [address] [place], [address] Glucose [Mass/Vol] 88 mg/dL Normal 70-99 [facility] Comment on above: Performed By: #### L 506.1001, L100.0500, L500.3600, L509.1000, L501.0900 ####[facility] [address] [place], [address] Phosphate [Mass/Vol] 3.8 mg/dL Normal 2.7-4.5 [facility] Comment on above: Performed By: #### L 506.1001, L100.0500, L500.3600, L509.1000, L501.0900 ####[facility] [address] [place], [address] Potassium [Moles/Vol] 4.4 mmol/L Normal 3.3-5.1 [facility] Comment on above: Performed By: #### L 506.1001, L100.0500, L500.3600, L509.1000, L501.0900 ####[facility] [address] [place], [address] Sodium [Moles/Vol] 139 mmol/L Normal 133-145 [facility] Comment on above: Performed By: #### L 506.1001, L100.0500, L500.3600, L509.1000, L501.0900 ####[facility] [address] [place], [address] Urea nitrogen [Mass/Vol] 40 mg/dL High 4-19 [facility] Comment on above: Performed By: #### L 506.1001, L100.0500, L500.3600, L509.1000, L501.0900 ####[facility] [address] [place], [place], [address] Serum creatinine measurement (mass/volume)Ordered By: Danyel Mendez on 07-31-2025 Creatinine [Mass/Vol] 1.77 mg/dL High 0.70-1.20 [facility] Serum glucose measurement (m ass/volume)Ordered By: Danyel Mendez on 07-31-2025 Glucose [Mass/Vol] 88 mg/dL 70-99 [facility] Serum or plasma albumin buck urement (mass/volume)Ordered By: Danyel Mendez on 07-31-2025 Albumin [Mass/Vol] 3.9 g/dL 3.5-5.0 [facility] Serum or plasma calcium buck urement (mass/volume)Ordered By: Danyel Mendez on 07-31-2025 Calcium [Mass/Vol] 9.5 mg/dL 7.6-11.0 [facility] Serum or plasma urea nitroge n measurement (mass/volume)Ordered By: Danyel Mendez on 07-31-2025 Urea nitrogen [Mass/Vol] 40 mg/dL High -19 [facility] Sodium levelOrdered By: Danyel Mendez on 07-31-2025 Sodium [Moles/Vol] 139 mmol/L 133-145 [facility] TSH DL <= 0.005 mIU/L QnOrde red By: Danyel Mendez on 07-31-2025 TSH Qn 0.240 uIU/mL Low 0.300-4.200 [facility] Thyroid Stim Hormone (TSH)on 07-31-2025 TSH 0.240 uIU/mL Low 0.300-4.200 [facility] Comment on above: Order Comment: PT ON LY WANTED TSH Performed By: #### L 501.9520 #### [facility] [address] [place], [place], [address] Urine protein measurement (m ass/volume)Ordered By: Danyel Mendez on 07-31-2025 Protein (U) [Mass/Vol] 10.3 mg/dL 0.0-12.0 [facility] Urine protein/creatinine mas s ratioOrdered By: Danyel Mendez on 07-31-2025 Protein/Creatinine (U) [Mass ratio] 80 mg/g CRE 0-200 [facility] Vitamin D,25 Hydroxyon 07-31 Vitamin D 25-OH 38.0 ng/mL Normal 30-100 [facility] Comment on above: Result Comment: Carolin min D Status Deficiency: <20 ng/mL (50nmol/L) Insufficiency: 20-30 ng/mL (50-75 nmol/L) Sufficiency: 30-100 ng/mL (75-250 nmol/L) Toxicity: >100 ng/mL (>250 nmol/L) Performed By: #### L 506.1001, L100.0500, L500.3600, L509.1000, L501.0900 ####[facility] [address] [place], [place], [address] White blood cell (WBC) count Ordered By: Danyel Mendez on 07-31-2025 WBC (Bld) [#/Vol] 6.2 10*3/uL 4.4-11.0 [facility] Endocrinology Visit Reporton 03-26-2025 Endocrinology Visit Report [facility] 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 Normal [facility] Bone density reportOrdered B y: Akash Sarabia on 01-29-2025 Study report Skeletal system DXA [facility] Imaging Services [address] [place] [address] Dexa Bone Density Study MR#: [id number] Acct: [id number] Name: LAURA DANG Rep #: [id number] : 1970 F 54 From: Jose Sarabia MD PCP: Dr. Joni Campo MD Status: REG CLI Study:Dexa Bone Density Study Date of Exam: 01/29/25 Exam# [id number] Ordering Dr: Nazario Campo MD PROCEDURE: DEXA [...] density since the previous examination. Reading Location: [id number] CC: Dr. Joni Campo MD ~ Team Cdl Driver: Signed [facility] Breast imaging reportOrdered By: Debbie Méndez on 01-29-2025 Study report [facility] Imaging Services [address], [place] [address] SCRN MAMM (CAD)W/OZ BILAT MR#: [id number] Acct: [id number] Name: LAURA DANG Rep #: [id number] : 1970 F 54 From: Marni Méndez MD PCP: Dr. Joni Campo MD Status: REG CLI Study:SCRN MAMM (CAD)W/OZ BILAT Date of Exa m: 01/29/25 Exam# [id number] Ordering Dr: Nazario Campo MD PROCEDURE: SCRN [...] of the results by letter. Reading Location: [facility] CC: Dr. Joni Campo MD ~ Team Cdl Driver: Signed [facility] Dexa Bone Density Studyon Dexa Bone Density Study [facility] Imaging Services [address] [place] [address] Dexa Bone Density Study MR#: [id number] Acct: [id number] Name: LAURA DANG Rep #: [id number] : 1970 F 54 From: Akash lima MD PCP: Dr. Joni Campo MD Status: REG CLI Study: Dexa Bone Density Study Date of Exam: 01/29/25 Exam# [id number] Ordering Dr: Joni Campo MD PROCEDURE: DEXA [...] density since the previous examination. Reading Location: [id number] CC: Dr. Joni Campo MD Team Cdl Driver: Signed Normal [facility] SCRN MAMM (CAD)W/OZ BILATo n 01-29-2025 SCRN MAMM (CAD)W/OZ BILAT [facility] [facility] Services [address] [place], [place] [id number] SCRN MAMM (CAD)W/OZ BILAT MR#: [id number] Acct: [id number] Name: LAURA DANG Rep #: [id number] : 1970 F 54 From: Debbie Méndez MD PCP: Dr. Joni Campo MD Status: [facility] Study: SCRN MAMM (CAD)W/OZ BILAT Date of Exam: 03/22 Exam# [id number] Ordering Dr: Joni Campo MD PROCEDURE: SCRN [...] of the results by letter. Reading Location: [id number] CC: Dr. Joni Campo MD Team Cdl Driver: Signed [facility] Blood urea nitrogen (BUN)/cr eatinine ratioOrdered By: Nargis Villalobos on 2024 Urea nitrogen/Creatinine [Mass ratio] 20.8 mg/mg High 10-20 [facility] Carbon dioxide measurementOr dered By: Nargis Villalobos on 2024 CO2 [Moles/Vol] 22.0 mmol/L 21.0-32.0 [facility] Chloride measurementOrdered By: Nargis Villalobos on 2024 Chloride [Moles/Vol] 109 mmol/L High 98-107 [facility] Estimated glomerular filtrat ion rate (GFR) AmericanOrdered By: Nargis Villalobos on 2024 Estimated GFR (MDRD) Amer 30 mL/min Low >60 [facility] Comment on above: GFR Calc Glomerular filtration rate ( GFR) estimationOrdered By: Nargis Villalobos on 2024 Estimated GFR (MDRD) Non-Af Amer 25 mL/min Low >60 [facility] Comment on above: Non- GFR Calc Glucose measurementOrdered B y: Nargis Villalobos on 2024 Glucose [Mass/Vol] 165 mg/dL High 74-106 [facility] Comment on above: Fasting Glucose resu lt greater than or equal to 126 mg/dL suggests DIABETES MELLITUS per A.D.A. criteria. Phosphorus measurementOrdere d By: Nargis Villalobos on 2024 Phosphorus Level 3.7 mg/dL 2.5-4.9 [facility] Potassium measurementOrdered By: Nargis Villalobos on 2024 Potassium [Moles/Vol] 4.3 mmol/L 3.5-5.1 [facility] Protein+Creatinine Ratio,Uri neon 2024 PROT:CRE RATIO 77 mg/g CRE Normal 0-200 [facility] Comment on above: Performed By: #### L 501.0900, L500.3600 #### [facility] [address] [place] [address]. [place], [place], [id number] PROTEIN,UR.RAN. < 6.0 Normal <11.9 [facility] Comment on above: Performed By: #### L 501.0900, L500.3600 #### [facility] [address] [place], [address] UR CREAT 74.20 mg/dL Normal NO RANGE EST. [facility] Comment on above: Performed By: #### L 501.0900, L500.3600 #### [facility] [address] [place], [address] Protein/Creatinine (U) [Mass ratio]Ordered By: Nargis Villalobos on 2024 Urine Protein/Creatinine Ratio 77 mg/g CRE 0-200 [facility] Random urine protein measure mentOrdered By: Nargis Villalobos on 2024 Urine Random Total Protein < 6.0 mg/dL 0.0-11.8 [facility] Renal Profileon 2024 Albumin [Mass/Vol] 3.6 g/dL Normal 3.2-5.0 [facility] Comment on above: Performed By: #### L 501.0900, L500.3600 #### [facility] [address] [place], [address] BUN/CRE 20.8 RATIO High 10-20 [facility] Comment on above: Performed By: #### L 501.0900, L500.3600 #### [facility] [address] [place], [address] CA,Total 9.3 mg/dL Normal 8.5-10.1 [facility] Comment on above: Performed By: #### L 501.0900, L500.3600 #### [facility] [address] [place], [address] Chloride [Moles/Vol] 109 mmol/L High 98-107 [facility] Comment on above: Performed By: #### L 501.0900, L500.3600 #### [facility] [address] [place], [address] CO2 [Moles/Vol] 22.0 mmol/L Normal 21.0-32.0 [facility] Comment on above: Performed By: #### L 501.0900, L500.3600 #### [facility] [address] [place], [address] Creatinine [Mass/Vol] 2.16 mg/dL High 0.55-1.02 [facility] Comment on above: Result Comment: The validity of the calculated GFR GFRAA in patients over 70 years has not been determined. Clinical correlation is essential. Performed By: #### L 501.0900, L500.3600 #### [facility] [address] [place], [address] EST GFR - AA 30 mL/min Low >60 [facility] Comment on above: Result Comment: Afri can Serbian GFR Calc Performed By: #### L 501.0900, L500.3600 #### [facility] [address] [place], [address] GFR/1.73 sq M.predicted among non-blacks MDRD (S/P/Bld) [Vol rate/Area] 25 mL/min/{1.73_m2} Low >60 [facility] Comment on above: Result Comment: Non- GFR Calc Performed By: #### L 501.0900, L500.3600 #### [facility] [address] [place], [address] Glucose [Mass/Vol] 165 mg/dL High 74-106 [facility] Comment on above: Result Comment: Fast ing Glucose result greater than or equal to 126 mg/dL suggests DIABETES MELLITUS per A.D.A. criteria. Performed By: #### L 501.0900, L500.3600 #### [facility] [address] [place], [address] Phosphate [Mass/Vol] 3.7 mg/dL Normal 2.5-4.9 [facility] Comment on above: Performed By: #### L 501.0900, L500.3600 #### [facility] [address] [place], [address] Potassium [Moles/Vol] 4.3 mmol/L Normal 3.5-5.1 [facility] Comment on above: Performed By: #### L 501.0900, L500.3600 #### [facility] [address] [place], [address] Sodium [Moles/Vol] 139 mmol/L Normal 136-145 [facility] Comment on above: Performed By: #### L 501.0900, L500.3600 #### [facility] [address] [place], [address] Urea nitrogen [Mass/Vol] 45 mg/dL High 7-18 [facility] Comment on above: Performed By: #### L 501.0900, L500.3600 #### [facility] [address] [place], [address] Serum or plasma albumin buck urement (mass/volume)Ordered By: Nargis Villalobos on 2024 Albumin [Mass/Vol] 3.6 g/dL 3.2-5.0 [facility] Serum or plasma calcium buck urement (mass/volume)Ordered By: Nargis Villalobos on 2024 Calcium [Mass/Vol] 9.3 mg/dL 8.5-10.1 [facility] Serum or plasma creatinine m easurement (mass/volume)Ordered By: Nargis Villalobos on 2024 Creatinine [Mass/Vol] 2.16 mg/dL High 0.55-1.02 [facility] Comment on above: The validity of the calculated GFR & GFRAA in patients over 70 years has not been determined. Clinical correlation is essential. Serum or plasma urea nitroge n measurement (mass/volume)Ordered By: Nargis Villalobos on 2024 Urea nitrogen [Mass/Vol] 45 mg/dL High 7-18 [facility] Sodium levelOrdered By: Fareed Villlaobos on 2024 Sodium [Moles/Vol] 139 mmol/L 136-145 [facility] Urine creatinine measurement (mass/volume)Ordered By: Nargis Villalobos on 2024 Creatinine (U) [Mass/Vol] 74.20 mg/dL NO RANGE EST. [facility] Endocrinology Visit Reporton 12-06-2024 Endocrinology Visit Report [facility] [address] [place] [address] OFFICE VISIT Date of Service: 12/06/24 MR#: [id number] Acct: [id number] Name: LAURA DANG Rep #: [id number] : 1970 Provider: Tomasz Cruz Age/Sex: 53/F Location: [facility] Status: Signed Intake Vital Signs 07/10/24 09:31 [...] mL) subcutaneous pen (Fiasp FlexTouch U-100 Insulin) [facility] Medical History Stage 4 chronic kidney disease Diabetes mellitus type 1 COVID-19 Cat scratch of right hand Difficulty balancing when standing Shoulder pain Kidney disease Diabetes mellitus type 1, uncontrolled, insulin dependent Old myocardial infarction Mixed hyperlipidemia Essential hypertension Hypophosphatemia Retinopathy Hearing loss Family history of hypertension Atherosclerotic heart disease of [place] coronary artery without angina pectoris Amputation of [...] pump for her. I brought in pump head athletic trainer/strength coach to speak with her. She needs better control as her diabetes complications are piling up. ROS Const Constitutional: No fatigue or weight change ENT ENT: No dizziness/vertigo Cardio Cardiology: No chest pain at rest, chest pain with exertion, shortness of breath or palpit (more content not included)... Normal [facility] - Hematology and Cell countson 12-06-2024 HbA1c (Bld) [Mass fraction] 8.5 % High 4.2-6.3 [facility] Bilirubin Test strip Ql (U)O rdered By: Joni Campo on 07-04-2023 Bilirubin Ql (U) Negative Negative [facility] Ketones Test strip Ql (U)Ord ered By: Joni Campo on 07-04-2023 Ketones Ql (U) Negative Negative [facility] Nitrite Test strip Ql (U)Ord ered By: Joni Campo on 07-04-2023 Nitrite Ql (U) Negative Negative [facility] No Panel InformationOrdered By: Joni Campo on 07-04-2023 Urine Microalbumin/Creatinine Ratio 86.3 mg/g CRE <30 [facility] Protein Test strip Ql (U)Ord ered By: Joni Campo on 07-04-2023 Protein Ql (U) 15 mg/dl Negative [facility] Thin prep Papanicolaou smear with manual screeningOrdered By: Joni Campo on 07-04-2023 Thin prep Papanicolaou smear with manual screening 41.1 mg/L NO RANGE EST. [facility] Urine blood detectionOrdered By: Joni Campo on 07-04-2023 RBC Ql (U) Negative Negative [facility] Urine clarityOrdered By: Perlita Campo on 07-04-2023 Clarity (U) Clear Clear [facility] Urine color determinationOrd ered By: Joni Campo on 07-04-2023 Color (U) Yellow Yellow [facility] Urine creatinine measurement (mass/volume)Ordered By: Joni Campo on 07-04-2023 Creatinine (U) [Mass/Vol] 47.60 mg/dL NO RANGE EST. [facility] Urine glucose detectionOrder ed By: Joni Campo on 07-04-2023 Glucose Ql (U) 1000 mg/dl Normal [facility] Urine leukocyte esterase det ection by dipstickOrdered By: Joni Campo on 07-04-2023 Leukocyte esterase Test strip Ql (U) 25 /ul Negative [facility] Urine pHOrdered By: Joni paige on 07-04-2023 pH (U) 6.0 [pH] 5.0 - 8.0 [facility] Urine protein measurement (m ass/volume)Ordered By: Joni Campo on 07-04-2023 Protein (U) [Mass/Vol] 9.2 mg/dL 0.0-11.8 [facility] Urine protein/creatinine mas s ratioOrdered By: Joni Campo on 07-04-2023 Protein/Creatinine (U) [Mass ratio] 193 mg/g CRE 0-200 [facility] Urine specific gravity measu rementOrdered By: Joni Campo on 07-04-2023 Specific gravity (U) [Rel density] 1.010 1.002-1.030 [facility] Urobilinogen Auto test strip Ql (U)Ordered By: Joni Campo on 07-04-2023 Urobilinogen Ql (U) Normal mg/dl Normal [facility] Absolute lymphocyte countOrd ered By: Joni Campo on 07-02-2023 Lymphocytes Auto (Unsp spec) [#/Vol] 1.52 10*3/uL 0.83-4.51 [facility] Albumin Elph [Mass/Vol]Order ed By: Joni Campo on 07-02-2023 Albumin [Mass/Vol] 3.4 g/dL 2.9-4.4 [facility] Atypical perinuclear antineu trophil cytoplasmic antibodies measurementOrdered By: Joni Campo on 07-02-2023 Neutrophil cytoplasmic Ab.perinuclear.atypical IF (S) [Titer] <1:20 titer Neg:<1:20 [facility] Comment on above: The atypical pANCA p attern has been observed in asignificant percentage of patients with ulcerative colitis,primary sclerosing cholangitis and autoimmune hepatitis.Performed at: [facility] [id number] Director: Gamal Dennis PhD, Phone: [phone] Basophil percentageOrdered B y: Joni Campo on 07-02-2023 Basophil percentage 3.8 mg/dL 2.5-4.9 [facility] Basophils/100 WBC (Bld) 1.1 % 0-1 [facility] Bilirubin [Mass/Vol] 0.30 mg/dL 0.20-1.00 [facility] Comment on above: For patients on eltr ombopag therapy, use of Dimension [place] TBIL is not recommended. Chloride [Moles/Vol] 110 mmol/L 98-107 [facility] Cholesterol [Mass/Vol] 174 mg/dL <200 [facility] Comment on above: <200 mg/dL Desirable 200-240 mg/dL Borderline >240 mg/dL High Risk Eosinophils/100 WBC (Bld) 2.6 % 0-5 [facility] Glucose [Mass/Vol] 140 mg/dL 74-106 [facility] Comment on above: Fasting Glucose resu lt greater than or equal to 126 mg/dL suggests DIABETES MELLITUS per A.D.A. criteria. Neutrophils (Bld) [#/Vol] 4.9 10*3/uL 2.0-7.7 [facility] Neutrophils/100 WBC (Bld) 66.7 % 47-70 [facility] Potassium [Moles/Vol] 4.6 mmol/L 3.5-5.1 [facility] Protein [Mass/Vol] 6.8 g/dL 6.4-8.2 [facility] Sodium [Moles/Vol] 140 mmol/L 136-145 [facility] Triglyceride [Mass/Vol] 120 mg/dL <199 [facility] Comment on above: The drugs N-Acetylcy steine and Metamizole may falsely depress this assay.Serum Triglycerides Reference Interval Normal <150 mg/dL Borderline high 150 - 199 mg/dL High 200 - 499 mg/dL Very High > or = 500 mg/dL WBC (Bld) [#/Vol] 7.4 10*3/uL 4.4-11.0 [facility] Blood erythrocytes count (nu mber/volume)Ordered By: Joni Campo on 07-02-2023 RBC (Bld) [#/Vol] 4.20 10*6/uL 4.2-5.4 [facility] Blood hemoglobin measurement (mass/volume)Ordered By: Joni Campo on 07-02-2023 Hemoglobin (Bld) [Mass/Vol] 12.2 g/dL 12.0-15. 0 [facility] Blood lymphocytes/100 leukoc ytesOrdered By: Joni Campo on 07-02-2023 Lymphocytes/100 WBC (Bld) 20.7 % 19-41 [facility] Blood monocytes/100 leukocyt esOrdered By: Joni Campo on 07-02-2023 Monocytes/100 WBC (Bld) 8.6 % 0-10 [facility] Blood platelet mean volumeOr dered By: Joni Campo on 07-02-2023 Platelet mean volume (Bld) [Entitic vol] 11.1 fL 6.2-12.0 [facility] Determination of erythrocyte mean corpuscular volume (MCV)Ordered By: Joni Campo on 07-02-2023 MCV (RBC) [Entitic vol] 92.6 fL 81-99 [facility] Hematocrit Auto (Bld) [Volum e fraction]Ordered By: Joni Campo on 07-02-2023 Hematocrit (Bld) [Volume fraction] 38.9 % 37-47 [facility] Interpretation of serum or p lasma protein pattern by immunofixation (narrative resultOrdered By: Joni Campo on 07-02-2023 Protein Fractions Immunofixation Sami [Interp] See comment [facility] Comment on above: NOT OBSERVED Iron measurement (mass/mass) Ordered By: Joni Campo on 07-02-2023 Iron (Unsp spec) [Mass/Mass] 57 ug/dL 50-170 [facility] - Chemistry and C hemistry - challengeOrdered By: Joni Campo on 07-02-2023 ALP [Catalytic activity/Vol] 67 U/L 45-117 [facility] ALT [Catalytic activity/Vol] 13 U/L 13-56 [facility] CO2 [Moles/Vol] 24.0 mmol/L 21.0-32.0 [facility] Cobalamin (Vitamin B12) [Mass/Vol] 263 pg/mL 211-911 [facility] Free T4 [Mass/Vol] 1.27 ng/dL 0.76-1.46 [facility] Urea nitrogen/Creatinine [Mass ratio] 21.5 mg/mg 10-20 [facility] - Hematology and Cell countsOrdered By: Joni Campo on 07-02-2023 Erythrocyte distribution width (RBC) [Entitic vol] 43.2 fL 35.1-43.9 [facility] Erythrocyte distribution width (RBC) [Ratio] 12.8 % 11.6-14.6 [facility] Immature granulocytes/100 WBC (Bld) 0.300 % 0.0-0.9 [facility] Comment on above: IG% - Immature Granu locytes (promyelocytes, myelocytes and metamyelocytes) > 1% indicates that a LEFT SHIFT is Present. MCH (RBC) [Entitic mass] 29.0 pg 27.0-32.0 [facility] Nucleated RBC/100 WBC (Bld) [Ratio] 0 % 0-5 [facility] MCHC Auto (RBC) [Mass/Vol]Or dered By: Joni Campo on 07-02-2023 MCHC (RBC) [Mass/Vol] 31.4 g/dL 32-36 [facility] No Panel InformationOrdered By: Joni Campo on 07-02-2023 Addendum Document Comment . [facility] Comment on above: Protein electrophore sis scan will follow via computer,mail, or siebel crm developer delivery. Estimated GFR (MDRD) Amer 31 mL/min >60 [facility] Comment on above: GFR Calc Estimated GFR (MDRD) Non-Af Amer 26 mL/min >60 [facility] Comment on above: Non- GFR Calc Thyroid Stimulating Hormone (TSH) 0.83 uIU/mL 0.358-3.74 [facility] Total Iron Binding Capacity 253 ug/dL 250-450 [facility] Vitamin D 25-Hydroxy 51.8 ng/mL [facility] Comment on above: Vitamin D 25(OH) Sta tus Range Deficiency <20 ng/mL (50nmol/L) Insufficiency 20 - 30 ng/mL (50 - 75 nmol/L) Sufficiency 30 - 100 ng/mL (75 - 250 nmol/L) Toxicity >100 ng/mL (>250 nmol/L) Platelets bldOrdered By: Perlita Campo on 07-02-2023 Platelets (Bld) [#/Vol] 282 10*3/uL 150-450 [facility] Serum dxnvo-6-vlyefzjc measu rement by electrophoresisOrdered By: Joni Campo on 07-02-2023 Alpha 1 globulin Elph [Mass/Vol] 0.2 g/dL 0.0-0.4 [facility] Alpha 1 globulin Elph [Mass/Vol] 0.7 g/dL 0.4-1.0 [facility] Serum classic neutrophil cyt oplasmic antibody assay (units/volume)Ordered By: Joni Campo on 07-02-2023 Neutrophil cytoplasmic Ab.classic Qn (S) <1:20 titer Neg:<1:20 [facility] Serum globulin measurement ( mass/volume)Ordered By: Joni Campo on 07-02-2023 Globulin (S) [Mass/Vol] 2.8 g/dL 2.2-3.9 [facility] Serum or plasma IgA measurem ent (mass/volume)Ordered By: Joni Campo on 07-02-2023 IgA [Mass/Vol] 184 mg/dL 87-352 [facility] Serum or plasma IgG measurem ent (mass/volume)Ordered By: Joni Campo on 07-02-2023 IgG [Mass/Vol] 1070 mg/dL 586-1602 [facility] Serum or plasma IgM measurem ent (mass/volume)Ordered By: Joni Campo on 07-02-2023 IgM [Mass/Vol] 26 mg/dL 26-217 [facility] Comment on above: Result confirmed on concentration. Serum or plasma albumin buck urement (mass/volume)Ordered By: Joni Campo on 07-02-2023 Albumin [Mass/Vol] 3.3 g/dL 3.2-5.0 [facility] Serum or plasma albumin/glob ulin mass ratioOrdered By: Joni Campo on 07-02-2023 Albumin/Globulin [Mass ratio] 0.9 {ratio} 0.9-2.4 [facility] Serum or plasma beta globuli n measurement by electrophoresis (mass/volume)Ordered By: Joni Campo on 07-02-2023 Beta globulin Elph [Mass/Vol] 0.9 g/dL 0.7-1.3 [facility] Serum or plasma calcium buck urement (mass/volume)Ordered By: Joni Campo on 07-02-2023 Calcium [Mass/Vol] 9.0 mg/dL 8.5-10.1 [facility] Serum or plasma cholesterol in HDL measurement (mass/volume)Ordered By: Joni Campo on 07-02-2023 Cholesterol in HDL [Mass/Vol] 41 mg/dL >40 [facility] Comment on above: The drugs N-Acetylcy steine and Metamizole may falsely depress this assay. Reference Range HDL <40 mg/dL Low HDL Cholesterol HDL >or= 60 mg/dL High HDL Cholesterol Serum or plasma cholesterol in VLDL measurement (mass/volume)Ordered By: Joni Campo on 07-02-2023 Cholesterol in VLDL [Mass/Vol] 24 mg/dL 5-40 [facility] Serum or plasma creatinine m easurement (mass/volume)Ordered By: Joni Campo on 07-02-2023 Creatinine [Mass/Vol] 2.14 mg/dL 0.55-1.02 [facility] Comment on above: The validity of the calculated GFR & GFRAA in patients over 70 years has not been determined. Clinical correlation is essential. Serum or plasma ferritin wendie surement (mass/volume)Ordered By: Joni Campo on 07-02-2023 Ferritin [Mass/Vol] 24 ng/mL 8-252 [facility] Serum or plasma folate measu rement (mass/volume)Ordered By: Joni Campo on 07-02-2023 Folate [Mass/Vol] 17.30 ng/mL 3.1-55.4 [facility] Serum or plasma gamma globul in measurement by electrophoresis (mass/volume)Ordered By: Joni Campo on 07-02-2023 Gamma globulin Elph [Mass/Vol] 1.0 g/dL 0.4-1.8 [facility] Serum or plasma immunoelectr ophoresis interpretation (nominal result)Ordered By: Joni Campo on 07-02-2023 Interpretation IEP [Interp] Comment . [facility] Comment on above: No monoclonality det ected. Serum or plasma iron saturat ion measurement (mass fraction)Ordered By: Joni Campo on 07-02-2023 Iron saturation [Mass fraction] 22.5 % 15.0-55.0 [facility] Serum or plasma low density lipoprotein (LDL) cholesterol measurement (mass/volume)Ordered By: Joni Campo on 07-02-2023 Cholesterol in LDL [Mass/Vol] 109 mg/dL 0-130 [facility] Serum or plasma urea nitroge n measurement (mass/volume)Ordered By: Joni Campo on 07-02-2023 Urea nitrogen [Mass/Vol] 46 mg/dL 7-18 [facility] Serum perinuclear neutrophil cytoplasmic antibody titer by immunofluorescenceOrdered By: Joni Campo on 07-02-2023 Neutrophil cytoplasmic Ab.perinuclear IF (S) [Titer] <1:20 titer Neg:<1:20 [facility] Comment on above: The presence of posi tive fluorescence exhibiting P-ANCA orC-ANCA patterns alone is not specific for the diagnosis ofWegener's Granulomatosis (WG) or microscopic polyangiitis.Decisions about treatment should not be based solely onANCA IFA results. The [employer] ANCA [employer] Consensusrecommends follow up testing of positive sera with both CO-3 and MPO-ANCA enzyme immunoassays. As many as 5% serumsamples are positive only by EIA. Ref. AM J Clin Kenfxx1656;111:507-513. Thin prep Papanicolaou smear with manual screeningOrdered By: Joni Campo on 07-02-2023 Thin prep Papanicolaou smear with manual screening 1.3 0.7-1.7 [facility] Thin prep Papanicolaou smear with manual screening 11 U/L 15-37 [facility] Thin prep Papanicolaou smear with manual screening 6 5-15 [facility] Total protein bloodOrdered B y: Joni Campo on 07-02-2023 Protein [Mass/Vol] 6.2 g/dL 6.0-8.5 [facility] Whole blood hemoglobin A1c/t otal hemoglobin ratio (mass fraction)Ordered By: Joni Campo on 07-02-2023 HbA1c (Bld) [Mass fraction] 8.4 % 3.8-5.6 [facility] Comment on above: Normal < 5.7 % Predi abetic 5.7 - 6.4 % Diabetic >or= 6.5 % Please note range changes. Laboratory - Hematology and Cell countson 03-31-2023 HbA1c (Bld) [Mass fraction] 7.8 % 4.2-6.3 [facility] Atypical perinuclear antineu trophil cytoplasmic antibodies measurementOrdered By: Dr. Hermosillo on 03-05-2023 Neutrophil cytoplasmic Ab.perinuclear.atypical IF (S) [Titer] <1:20 titer Neg:<1:20 [facility] Comment on above: The atypical pANCA p attern has been observed in asignificant percentage of patients with ulcerative colitis,primary sclerosing cholangitis and autoimmune hepatitis.Performed at: [facility] [place] [id number] Director: Gamal Dennis PhD, Phone: [phone] Basophil percentageOrdered B y: Dr. Hermosillo on 03-05-2023 Basophil percentage 4.3 mg/dL 2.5-4.9 [facility] Chloride [Moles/Vol] 109 mmol/L 98-107 [facility] Glucose [Mass/Vol] 111 mg/dL 74-106 [facility] Comment on above: Fasting Glucose resu lt from 100 to 125 mg/dL suggests IMPAIRED HOMEOSTASIS per A.D.A. criteria. Potassium [Moles/Vol] 5.0 mmol/L 3.5-5.1 [facility] Sodium [Moles/Vol] 138 mmol/L 136-145 [facility] WBC (Bld) [#/Vol] 5.3 10*3/uL 4.4-11.0 [facility] Basophil percentageOrdered B y: Dr. Dave on 03-05-2023 Bilirubin [Mass/Vol] 0.30 mg/dL 0.20-1.00 [facility] Comment on above: For patients on eltr ombopag therapy, use of Dimension [place] TBIL is not recommended. Cholesterol [Mass/Vol] 200 mg/dL <200 [facility] Comment on above: <200 mg/dL Desirable 200-240 mg/dL Borderline >240 mg/dL High Risk Protein [Mass/Vol] 6.6 g/dL 6.4-8.2 [facility] Triglyceride [Mass/Vol] 72 mg/dL <199 [address] [facility] Comment on above: The drugs N-Acetylcy steine and Metamizole may falsely depress this assay.Serum Triglycerides Reference Interval Normal <150 mg/dL Borderline high 150 - 199 mg/dL High 200 - 499 mg/dL Very High > or = 500 mg/dL Bilirubin Test strip Ql (U)O rdered By: Dr. Hermosillo on 03-05-2023 Bilirubin Ql (U) Negative Negative [facility] Blood erythrocytes count (nu mber/volume)Ordered By: Dr. Hermosillo on 03-05-2023 RBC (Bld) [#/Vol] 4.47 10*6/uL 4.2-5.4 [facility] Blood hemoglobin measurement (mass/volume)Ordered By: Dr. Hermosillo on 03-05-2023 Hemoglobin (Bld) [Mass/Vol] 13.1 g/dL 12.0-15. 0 [facility] Blood platelet mean volumeOr dered By: Dr. Hermosillo on 03-05-2023 Platelet mean volume (Bld) [Entitic vol] 11.2 fL 6.2-12.0 [facility] Determination of erythrocyte mean corpuscular volume (MCV)Ordered By: Dr. Hermosillo on 03-05-2023 MCV (RBC) [Entitic vol] 89.7 fL 81-99 [facility] Direct bilirubinOrdered By: Dr. Dave on 04-08-2023 Bilirubin.direct [Mass/Vol] 0.09 mg/dL 0.00-0.3 0 [facility] Hematocrit Auto (Bld) [Volum e fraction]Ordered By: Dr. Hermosillo on 03-05-2023 Hematocrit (Bld) [Volume fraction] 40.1 % 37-47 [facility] Ketones Test strip Ql (U)Ord ered By: Dr. Hermosillo on 03-05-2023 Ketones Ql (U) Negative Negative [facility] Laboratory - Chemistry and C hemistry - challengeOrdered By: Dr. Hermosillo on 03-05-2023 Albumin [Mass/Vol] 3.6 g/dL 2.9-4.4 [facility] CO2 [Moles/Vol] 28.0 mmol/L 21.0-32.0 [facility] Urea nitrogen/Creatinine [Mass ratio] 16.6 mg/mg 10-20 [facility] Laboratory - Chemistry and C hemistry - challengeOrdered By: Dr. Dave on 03-05-2023 ALP [Catalytic activity/Vol] 64 U/L 45-117 [facility] ALT [Catalytic activity/Vol] 18 U/L 13-56 [facility] Globulin (S) [Mass/Vol] 3.3 g/dL 2.2-4.2 [facility] - Hematology and Cell countsOrdered By: Dr. Hermosillo on 03-05-2023 Erythrocyte distribution width (RBC) [Entitic vol] 40.0 fL 35.1-43.9 [facility] Erythrocyte distribution width (RBC) [Ratio] 12.3 % 11.6-14.6 [facility] MCH (RBC) [Entitic mass] 29.3 pg 27.0-32.0 [facility] MCHC Auto (RBC) [Mass/Vol]Or dered By: Dr. Hermosillo on 03-05-2023 MCHC (RBC) [Mass/Vol] 32.7 g/dL 32-36 [facility] Nitrite Test strip Ql (U)Ord ered By: Dr. Hermosillo on 03-05-2023 Nitrite Ql (U) Negative Negative [facility] No Panel InformationOrdered By: Dr. Hermosillo on 03-05-2023 Addendum Document Comment . [facility] Comment on above: The SPE pattern appe ars unremarkable. Evidence ofmonoclonal protein is not apparent. Dlmtq-0-Zvodufcgv 0.2 g/dL 0.0-0.4 [facility] Rprrp-5-Pqhfrajas 0.6 g/dL 0.4-1.0 [facility] Estimated GFR (MDRD) Amer 36 mL/min >60 [facility] Comment on above: GFR Calc Estimated GFR (MDRD) Non-Af Amer 30 mL/min >60 [facility] Comment on above: Non- GFR Calc Gamma Globulins 1.0 g/dL 0.4-1.8 [facility] Serum Immunofixation Comment . [facility] Comment on above: No monoclonality det ected. Platelets bldOrdered By: Dr. Hermosillo on 03-05-2023 Platelets (Bld) [#/Vol] 268 10*3/uL 150-450 [facility] Protein Fractions Elph [Inte rp]Ordered By: Dr. Hermosillo on 03-05-2023 Protein Fractions [Interp] Comment . [facility] Comment on above: Protein electrophore sis scan will follow via computer,mail, or [employer] crm developer delivery. Protein Test strip Ql (U)Ord ered By: Dr. Hermosillo on 03-05-2023 Protein Ql (U) 100 mg/dl Negative [facility] Serum albumin to globulin ra abe by protein electrophoresisOrdered By: Dr. Hermosillo on 03-05-2023 Albumin/Globulin Elph [Mass ratio] 1.2 0.7-1.7 [facility] Serum classic neutrophil cyt oplasmic antibody assay (units/volume)Ordered By: Dr. Hermosillo on 03-05-2023 Neutrophil cytoplasmic Ab.classic Qn (S) <1:20 titer Neg:<1:20 [facility] Serum globulin measurement ( mass/volume)Ordered By: Dr. Hermosillo on 03-05-2023 Globulin (S) [Mass/Vol] 2.9 g/dL 2.2-3.9 [facility] Serum or plasma IgA measurem ent (mass/volume)Ordered By: Dr. Hermosillo on 03-05-2023 IgA [Mass/Vol] 188 mg/dL 87-352 [facility] Serum or plasma IgG measurem ent (mass/volume)Ordered By: Dr. Hermosillo on 03-05-2023 IgG [Mass/Vol] 1085 mg/dL [phone] [facility] Serum or plasma IgM measurem ent (mass/volume)Ordered By: Dr. Hermosillo on 03-05-2023 IgM [Mass/Vol] 32 mg/dL 26-217 [facility] Serum or plasma albumin buck urement (mass/volume)Ordered By: Dr. Hermosillo on 03-05-2023 Albumin [Mass/Vol] 3.4 g/dL 3.2-5.0 [facility] Serum or plasma beta globuli n measurement by electrophoresis (mass/volume)Ordered By: Dr. Hermosillo on 03-05-2023 Beta globulin Elph [Mass/Vol] 0.9 g/dL 0.7-1.3 [facility] Serum or plasma calcium buck urement (mass/volume)Ordered By: Dr. Hermosillo on 03-05-2023 Calcium [Mass/Vol] 9.3 mg/dL 8.5-10.1 [facility] Serum or plasma cholesterol in HDL measurement (mass/volume)Ordered By: Dr. Dave on 03-05-2023 Cholesterol in HDL [Mass/Vol] 54 mg/dL >40 [facility] Comment on above: The drugs N-Acetylcy steine and Metamizole may falsely depress this assay. Reference Range HDL <40 mg/dL Low HDL Cholesterol HDL >or= 60 mg/dL High HDL Cholesterol Serum or plasma cholesterol in VLDL measurement (mass/volume)Ordered By: Dr. Dave on 03-05-2023 Cholesterol in VLDL [Mass/Vol] 14 mg/dL 5-40 [facility] Serum or plasma creatinine m easurement (mass/volume)Ordered By: Dr. Hermosillo on 03-05-2023 Creatinine [Mass/Vol] 1.87 mg/dL 0.55-1.02 [facility] Comment on above: The validity of the calculated GFR & GFRAA in patients over 70 years has not been determined. Clinical correlation is essential. Serum or plasma low density lipoprotein (LDL) cholesterol measurement (mass/volume)Ordered By: Dr. Dave on 03-05-2023 Cholesterol in LDL [Mass/Vol] 132 mg/dL 0-130 [facility] Serum or plasma urea nitroge n measurement (mass/volume)Ordered By: Dr. Hermosillo on 03-05-2023 Urea nitrogen [Mass/Vol] 31 mg/dL 7-18 [facility] Serum perinuclear neutrophil cytoplasmic antibody titer by immunofluorescenceOrdered By: Dr. Hermosillo on 03-05-2023 Neutrophil cytoplasmic Ab.perinuclear IF (S) [Titer] <1:20 titer Neg:<1:20 [facility] Comment on above: The presence of posi tive fluorescence exhibiting P-ANCA orC-ANCA patterns alone is not specific for the diagnosis ofWegener's Granulomatosis (WG) or microscopic polyangiitis.Decisions about treatment should not be based solely onANCA IFA results. The [employer] ANCA [employer] Consensusrecommends follow up testing of positive sera with both CO-3 and MPO-ANCA enzyme immunoassays. As many as 5% serumsamples are positive only by EIA. Ref. AM J Clin [id number];111:507-513. Thin prep Papanicolaou smear with manual screeningOrdered By: Dr. Dave on 03-05-2023 Thin prep Papanicolaou smear with manual screening 17 U/L 15-37 [facility] Thin prep Papanicolaou smear with manual screeningOrdered By: Dr. Hermosillo on 03-05-2023 Thin prep Papanicolaou smear with manual screening See comment [facility] Comment on above: Result: Not Observed Total protein bloodOrdered B y: Dr. Hermosillo on 03-05-2023 Protein [Mass/Vol] 6.5 g/dL 6.0-8.5 [facility] Urine blood detectionOrdered By: Dr. Hermosillo on 03-05-2023 RBC Ql (U) 10 /ul Negative [facility] Urine clarityOrdered By: Dr. Hermosillo on 03-05-2023 Clarity (U) Clear Clear [facility] Urine color determinationOrd ered By: Dr. Hermosillo on 03-05-2023 Color (U) Yellow Yellow [facility] Urine creatinine measurement (mass/volume)Ordered By: Dr. Hermosillo on 03-05-2023 Creatinine (U) [Mass/Vol] 173.00 mg/dL NO RANGE EST. [facility] Urine glucose detectionOrder ed By: Dr. Hermosillo on 03-05-2023 Glucose Ql (U) Normal mg/dl Normal [facility] Urine leukocyte esterase det ection by dipstickOrdered By: Dr. Hermosillo on 03-05-2023 Leukocyte esterase Test strip Ql (U) 500 /ul Negative [facility] Urine pHOrdered By: Dr. Paula ramirez on 03-05-2023 pH (U) 5.0 [pH] 5.0 - 8.0 [facility] Urine protein measurement (m ass/volume)Ordered By: Dr. Hermosillo on 03-05-2023 Protein (U) [Mass/Vol] 47.5 mg/dL 0.0-11.8 [facility] Urine protein/creatinine mas s ratioOrdered By: Dr. Hermosillo on 03-05-2023 Protein/Creatinine (U) [Mass ratio] 275 mg/g CRE 0-200 [facility] Urine specific gravity measu rementOrdered By: Dr. Hermosillo on 03-05-2023 Specific gravity (U) [Rel density] 1.015 1.002-1.030 [facility] Urobilinogen Auto test strip Ql (U)Ordered By: Dr. Hermosillo on 03-05-2023 Urobilinogen Ql (U) Normal mg/dl Normal [facility] Absolute lymphocyte countOrd ered By: Dr. Yoo on 11-16-2022 Lymphocytes Auto (Unsp spec) [#/Vol] 1.08 10*3/uL 0.83-4.51 [facility] Basophil percentageOrdered B y: Dr. Yoo on 11-16-2022 Basophil percentage 10-25 SEEN /hpf 0-5 [facility] Basophils/100 WBC (Bld) 0.8 % 0-1 [facility] Bilirubin [Mass/Vol] 0.30 mg/dL 0.20-1.00 [facility] Comment on above: For patients on eltr ombopag therapy, use of Dimension [place] TBIL is not recommended. Chloride [Moles/Vol] 106 mmol/L 98-107 [facility] Eosinophils/100 WBC (Bld) 2.2 % 0-5 [facility] Glucose [Mass/Vol] 138 mg/dL 74-106 [facility] Comment on above: Fasting Glucose resu lt greater than or equal to 126 mg/dL suggests DIABETES MELLITUS per A.D.A. criteria. Neutrophils (Bld) [#/Vol] 6.5 10*3/uL 2.0-7.7 [facility] Neutrophils/100 WBC (Bld) 74.7 % 47-70 [facility] Potassium [Moles/Vol] 3.9 mmol/L 3.5-5.1 [facility] Protein [Mass/Vol] 6.9 g/dL 6.4-8.2 [facility] Sodium [Moles/Vol] 138 mmol/L 136-145 [facility] WBC (Bld) [#/Vol] 8.7 10*3/uL 4.4-11.0 [facility] Bilirubin Test strip Ql (U)O rdered By: Dr. Yoo on 11-16-2022 Bilirubin Ql (U) Negative Negative [facility] Blood erythrocytes count (nu mber/volume)Ordered By: Dr. Yoo on 11-16-2022 RBC (Bld) [#/Vol] 4.44 10*6/uL 4.2-5.4 [facility] Blood hemoglobin measurement (mass/volume)Ordered By: Dr. Yoo on 11-16-2022 Hemoglobin (Bld) [Mass/Vol] 13.1 g/dL 12.0-15. 0 [facility] Blood lymphocytes/100 leukoc ytesOrdered By: Dr. Yoo on 11-16-2022 Lymphocytes/100 WBC (Bld) 12.4 % 19-41 [facility] Blood monocytes/100 leukocyt esOrdered By: Dr. Yoo on 11-16-2022 Monocytes/100 WBC (Bld) 9.6 % 0-10 [facility] Blood platelet mean volumeOr dered By: Dr. Yoo on 11-16-2022 Platelet mean volume (Bld) [Entitic vol] 10.7 fL 6.2-12.0 [facility] Determination of erythrocyte mean corpuscular volume (MCV)Ordered By: Dr. Yoo on 11-16-2022 MCV (RBC) [Entitic vol] 91.0 fL 81-99 [facility] Glucose Glucometer (BldC) [M ass/Vol]Ordered By: Dr. Yoo on 11-16-2022 Glucose [Mass/Vol] 185 mg/dL 74-106 [facility] Comment on above: MANAGEMENT OF PATIEN T CARE PER NURSING PROTOCOL Hematocrit Auto (Bld) [Volum e fraction]Ordered By: Dr. Yoo on 11-16-2022 Hematocrit (Bld) [Volume fraction] 40.4 % 37-47 [facility] Ketones Test strip Ql (U)Ord ered By: Dr. Yoo on 11-16-2022 Ketones Ql (U) Negative Negative [facility] Laboratory - Chemistry and C hemistry - challengeOrdered By: Dr. Yoo on 11-16-2022 ALP [Catalytic activity/Vol] 54 U/L 45-117 [facility] ALT [Catalytic activity/Vol] 20 U/L 13-56 [facility] CO2 [Moles/Vol] 22.0 mmol/L 21.0-32.0 [facility] Globulin (S) [Mass/Vol] 3.5 g/dL 2.2-4.2 [facility] Urea nitrogen/Creatinine [Mass ratio] 19.0 mg/mg 10-20 [facility] Laboratory - Hematology and Cell countsOrdered By: Dr. Yoo on 11-16-2022 Erythrocyte distribution width (RBC) [Entitic vol] 41.8 fL 35.1-43.9 [facility] Erythrocyte distribution width (RBC) [Ratio] 12.8 % 11.6-14.6 [facility] Immature granulocytes/100 WBC (Bld) 0.300 % 0.0-0.9 [facility] Comment on above: IG% - Immature Granu locytes (promyelocytes, myelocytes and metamyelocytes) > 1% indicates that a LEFT SHIFT is Present. MCH (RBC) [Entitic mass] 29.5 pg 27.0-32.0 [facility] Nucleated RBC/100 WBC (Bld) [Ratio] 0 % 0-5 [facility] MCHC Auto (RBC) [Mass/Vol]Or dered By: Dr. Yoo on 11-16-2022 MCHC (RBC) [Mass/Vol] 32.4 g/dL 32-36 [facility] Mucus LM Ql (Urine sed)Order ed By: Dr. Yoo on 11-16-2022 Mucus Ql (Urine sed) 0 SEEN /hpf [facility] Nitrite Test strip Ql (U)Ord ered By: Dr. Yoo on 11-16-2022 Nitrite Ql (U) Positive Negative [facility] No Panel InformationOrdered By: Dr. Yoo on 11-16-2022 Estimated Creatinine Clearance Calc 35.27 ml/min [facility] Estimated GFR (MDRD) Amer 35 mL/min >60 [facility] Comment on above: GFR Calc Estimated GFR (MDRD) Non-Af Amer 29 mL/min >60 [facility] Comment on above: Non- GFR Calc Troponin I High Sensitivity 10 pg/mL 3.0-54.0 [facility] Comment on above: Please Note: New Mavis t Units and Gender Specific Reference Ranges. For more information see Policy Stat Procedure [place] High Sensitivity Troponin (TNIH) and attachments. Platelets bldOrdered By: Dr. Yoo on 11-16-2022 Platelets (Bld) [#/Vol] 273 10*3/uL 150-450 [facility] Protein Test strip Ql (U)Ord ered By: Dr. Yoo on 11-16-2022 Protein Ql (U) 500 mg/dl Negative [facility] Serum or plasma albumin buck urement (mass/volume)Ordered By: Dr. Yoo on 11-16-2022 Albumin [Mass/Vol] 3.4 g/dL 3.2-5.0 [facility] Serum or plasma albumin/glob ulin mass ratioOrdered By: Dr. Yoo on 11-16-2022 Albumin/Globulin [Mass ratio] 1.0 {ratio} 0.9-2.4 [facility] Serum or plasma calcium buck urement (mass/volume)Ordered By: Dr. Yoo on 11-16-2022 Calcium [Mass/Vol] 9.1 mg/dL 8.5-10.1 [facility] Serum or plasma creatinine m easurement (mass/volume)Ordered By: Dr. Yoo on 11-16-2022 Creatinine [Mass/Vol] 1.95 mg/dL 0.55-1.02 [facility] Comment on above: The validity of the calculated GFR & GFRAA in patients over 70 years has not been determined. Clinical correlation is essential. Serum or plasma urea nitroge n measurement (mass/volume)Ordered By: Dr. Yoo on 11-16-2022 Urea nitrogen [Mass/Vol] 37 mg/dL 7-18 [facility] Squamous epithelial cells de tection in urine sediment by light microscopyOrdered By: Dr. Yoo on 11-16-2022 Epithelial cells.squamous LM Ql (Urine sed) 0-5 SEEN /hpf 5-10 [facility] Thin prep Papanicolaou smear with manual screeningOrdered By: Dr. Yoo on 11-16-2022 Thin prep Papanicolaou smear with manual screening 17 U/L 15-37 [facility] Thin prep Papanicolaou smear with manual screening 10 5-15 [facility] Urine blood detectionOrdered By: Dr. Yoo on 11-16-2022 RBC Ql (U) 25 /ul Negative [facility] RBC Ql (U) 0-5 SEEN /hpf 0-5 [facility] Urine clarityOrdered By: Dr. Yoo on 11-16-2022 Clarity (U) Clear Clear [facility] Urine color determinationOrd ered By: Dr. Yoo on 11-16-2022 Color (U) Yellow Yellow [facility] Urine glucose detectionOrder ed By: Dr. Yoo on 11-16-2022 Glucose Ql (U) Normal mg/dl Normal [facility] Urine leukocyte esterase det ection by dipstickOrdered By: Dr. Yoo on 11-16-2022 Leukocyte esterase Test strip Ql (U) 100 /ul Negative [facility] Urine pHOrdered By: Dr. Rich taylor on 11-16-2022 pH (U) 7.0 [pH] 5.0 - 8.0 [facility] Urine sediment bacteria coun t by microscopy (number/high power field)Ordered By: Dr. Yoo on 11-16-2022 Bacteria LM.HPF (Urine sed) [#/Area] 2 /[HPF] None Seen [facility] Urine specific gravity measu rementOrdered By: Dr. Yoo on 11-16-2022 Specific gravity (U) [Rel density] 1.010 1.002-1.030 [facility] Urobilinogen Auto test strip Ql (U)Ordered By: Dr. Yoo on 11-16-2022 Urobilinogen Ql (U) Normal mg/dl Normal [facility] Absolute lymphocyte counton 09-25-2022 Lymphocytes Auto (Unsp spec) [#/Vol] 2.40 10*3/uL 0.83-4.51 [facility] Work Phone: Basophil percentageon 2021 Basophils/100 WBC (Bld) 1.1 % 0-1 [facility] Work Phone: [phone] Bilirubin [Mass/Vol] 0.20 mg/dL 0.20-1.00 [facility] Work Phone: Comment on above: For patients on eltr ombopag therapy, use of Dimension [place] TBIL is not recommended. Chloride [Moles/Vol] 107 mmol/L 98-107 [facility] Work Phone: Cholesterol [Mass/Vol] 165 mg/dL <200 [facility] Work Phone: Comment on above: <200 mg/dL Desirable 200-240 mg/dL Borderline >240 mg/dL High Risk Eosinophils/100 WBC (Bld) 1.9 % 0-5 [facility] Work Phone: [phone] Glucose [Mass/Vol] 210 mg/dL 74-106 [facility] Work Phone: Comment on above: Glucose result great er than or equal to 200 mg/dLsuggests DIABETES MELLITUS per A.D.A. criteria. Neutrophils (Bld) [#/Vol] 4.6 10*3/uL 2.0-7.7 [facility] Work Phone: Neutrophils/100 WBC (Bld) 58.1 % 47-70 [facility] Work Phone: Potassium [Moles/Vol] 4.4 mmol/L 3.5-5.1 [facility] Work [facility]: Protein [Mass/Vol] 6.5 g/dL 6.4-8.2 [facility] Work Phone: Sodium [Moles/Vol] 138 mmol/L 136-145 [facility] Work Phone: Triglyceride [Mass/Vol] 79 mg/dL <199 [facility] Work Phone: Comment on above: The drugs N-Acetylcy steine and Metamizole may falsely depress this assay.Serum Triglycerides Reference Interval Normal <150 mg/dL Borderline high 150 - 199 mg/dL High 200 - 499 mg/dL Very High > or = 500 mg/dL WBC (Bld) [#/Vol] 8.0 10*3/uL 4.4-11.0 [facility] Work Phone: Blood erythrocytes count (nu mber/volume)on 09-25-2022 RBC (Bld) [#/Vol] 4.28 10*6/uL 4.2-5.4 [facility] Work Phone: Blood hemoglobin measurement (mass/volume)on 09-25-2022 Hemoglobin (Bld) [Mass/Vol] 12.9 g/dL 12.0-15. 0 [facility] Work Phone: Blood lymphocytes/100 leukoc yteson 09-25-2022 Lymphocytes/100 WBC (Bld) 30.1 % 19-41 [facility] Work Phone: Blood monocytes/100 leukocyt eson 09-25-2022 Monocytes/100 WBC (Bld) 8.7 % 0-10 [facility] Work Phone: Blood platelet mean volumeon 09-25-2022 Platelet mean volume (Bld) [Entitic vol] 10.8 fL 6.2-12.0 [facility] Work Phone: Determination of erythrocyte mean corpuscular volume (MCV)on 09-25-2022 MCV (RBC) [Entitic vol] 92.1 fL 81-99 [facility] Work Phone: Hematocrit Auto (Bld) [Volum e fraction]on 09-25-2022 Hematocrit (Bld) [Volume fraction] 39.4 % 37-47 [facility] Work Phone: Laboratory - Chemistry and C hemistry - challengeon 09-25-2022 ALP [Catalytic activity/Vol] 69 U/L 45-117 [facility] Work Phone: ALT [Catalytic activity/Vol] 19 U/L 13-56 [facility] Work Phone: CO2 [Moles/Vol] 26.0 mmol/L 21.0-32.0 [facility] Work Phone: Cobalamin (Vitamin B12) [Mass/Vol] 343 pg/mL 211-911 [facility] Work Phone: Globulin (S) [Mass/Vol] 3.2 g/dL 2.2-4.2 [facility] Work Phone: Urea nitrogen/Creatinine [Mass ratio] 15.4 mg/mg 10-20 [facility] Work Phone: Laboratory - Hematology and Cell countson 09-25-2022 Erythrocyte distribution width (RBC) [Entitic vol] 43.4 fL 35.1-43.9 [facility] Work Phone: Erythrocyte distribution width (RBC) [Ratio] 12.8 % 11.6-14.6 [facility] Work Phone: Immature granulocytes/100 WBC (Bld) 0.100 % 0.0-0.9 [facility] Work Phone: Comment on above: IG% - Immature Granu locytes (promyelocytes, myelocytes and metamyelocytes) > 1% indicates that a LEFT SHIFT is Present. MCH (RBC) [Entitic mass] 30.1 pg 27.0-32.0 [facility] Work Phone: Nucleated RBC/100 WBC (Bld) [Ratio] 0 % 0-5 [facility] Work Phone: [phone] MCHC Auto (RBC) [Mass/Vol]on 09-25-2022 MCHC (RBC) [Mass/Vol] 32.7 g/dL 32-36 [facility] Work Phone: No Panel Informationon 09-25 Estimated GFR (MDRD) Amer 36 mL/min >60 [facility] Work Phone: Comment on above: GFR Calc Estimated GFR (MDRD) Non-Af Amer 30 mL/min >60 [facility] Work Phone: Comment on above: Non- GFR Calc Total Iron Binding Capacity 319 ug/dL 250-450 [facility] Work Phone: Platelets bldon 09-25-2022 Platelets (Bld) [#/Vol] 262 10*3/uL 150-450 [facility] Work Phone: Serum or plasma albumin buck urement (mass/volume)on 09-25-2022 Albumin [Mass/Vol] 3.3 g/dL 3.2-5.0 [facility] Work Phone: Serum or plasma albumin/glob ulin mass ratioon 09-25-2022 Albumin/Globulin [Mass ratio] 1.0 {ratio} 0.9-2.4 [facility] Work Phone: Serum or plasma calcium buck urement (mass/volume)on 09-25-2022 Calcium [Mass/Vol] 9.0 mg/dL 8.5-10.1 [facility] Work Phone: Serum or plasma cholesterol in HDL measurement (mass/volume)on 09-25-2022 Cholesterol in HDL [Mass/Vol] 53 mg/dL >40 [facility] Work Phone: Comment on above: The drugs N-Acetylcy steine and Metamizole may falsely depress this assay. Reference Range HDL <40 mg/dL Low HDL Cholesterol HDL >or= 60 mg/dL High HDL Cholesterol Serum or plasma cholesterol in VLDL measurement (mass/volume)on 09-25-2022 Cholesterol in VLDL [Mass/Vol] 16 mg/dL 5-40 [facility] Work Phone: Serum or plasma creatinine m easurement (mass/volume)on 09-25-2022 Creatinine [Mass/Vol] 1.88 mg/dL 0.55-1.02 [facility] Work Phone: Comment on above: The validity of the calculated GFR & GFRAA in patients over 70 years has not been determined. Clinical correlation is essential. Serum or plasma ferritin wendie surement (mass/volume)on 09-25-2022 Ferritin [Mass/Vol] 27 ng/mL 8-252 [facility] Work Phone: Serum or plasma folate measu rement (mass/volume)on 09-25-2022 Folate [Mass/Vol] 17.10 ng/mL 3.1-55.4 [facility] Work Phone: Serum or plasma low density lipoprotein (LDL) cholesterol measurement (mass/volume)on 09-25-2022 Cholesterol in LDL [Mass/Vol] 96 mg/dL 0-130 [facility] Work Phone: Serum or plasma urea nitroge n measurement (mass/volume)on 09-25-2022 Urea nitrogen [Mass/Vol] 29 mg/dL 7-18 [facility] Work Phone: Thin prep Papanicolaou smear with manual screeningon 09-25-2022 Thin prep Papanicolaou smear with manual screening 12 U/L 15-37 [facility] Work Phone: Thin prep Papanicolaou smear with manual screening 5 5-15 [facility] Work Phone: Whole blood hemoglobin A1c/t otal hemoglobin ratio (mass fraction)on 09-25-2022 HbA1c (Bld) [Mass fraction] 7.2 % 3.8-5.6 [facility] Work Phone: Comment on above: Normal < 5.7 % Predi abetic 5.7 - 6.4 % Diabetic >or= 6.5 % Please note range changes. CNCOon 07-22-2022 CNCO Letter Text Normal [facility] Laboratory - Hematology and Cell countson 03-08-2022 HbA1c (Bld) [Mass fraction] 7.6 % [facility] Work Phone: Vital Signs Date Time Vital Sign Value Performing Clinician Tao campbell 12-06-2024 09:35-0500 Body height 175.[address] Joni Campo MD Work Phone: [facility] 12-06-2024 09:35-0500 Body mass index (BMI) [Ratio] 29.1 kg/m2 Dr. Joni Campo MD Work Phone: [phone] [place] [address] 12-06-2024 09:35-0500 Body weight 89.[address] Joni Campo MD Work Phone: [phone] [place] [address] 12-06-2024 09:35-0500 Diastolic blood pressure 85 mm[Hg] Dr. Joni Campo MD Work Phone: [phone] [place] [address] 12-06-2024 09:35-0500 Heart rate 72 /min Dr. Joni Campo MD Work Phone: [phone] [place] [address] 12-06-2024 09:35-0500 SaO2% (BldA) [Mass fraction] 97 % Dr. Joni Campo MD Work Phone: [phone] [place] [address] 12-06-2024 09:35-0500 Systolic blood pressure 153 mm[Hg] Dr. Joni Campo MD Work Phone: [phone] [place] [address] 07-18-2023 09:19-0400 Diastolic blood pressure 68 mm[Hg] Dr. Joni Campo Work Phone: 2(609)564-423987 [place] [address] 07-18-2023 09:19-0400 Systolic blood pressure 128 mm[Hg] Dr. Joni Campo Work Phone: 1(343)811-279487 [place] [address] 07-18-2023 08:31-0400 Body height 175.[address] Joni Campo Work Phone: 7(112)971-994487 [place] [address] 07-18-2023 08:31-0400 Body mass index (BMI) [Ratio] 32.1 kg/m2 Dr. Joni Campo Work Phone: 3(508)061-768487 [place] [address] 07-18-2023 08:31-0400 Body weight 98.[address] Joni Campo Work Phone: 3(588)136-483287 [place] [address] 07-18-2023 08:31-0400 Heart rate 72 /min Dr. Joni Campo Work Phone: 9(575)874-175021 [place] [address] 07-18-2023 08:31-0400 Respiratory rate 18 /min Dr. Joni Campo Work Phone: [facility] 07-18-2023 08:31-0400 SaO2% (BldA) [Mass fraction] 100 % Dr. Joni Campo Work Phone: [facility] 07-05-2023 09:06-0400 Body height 175.[address] Joni Campo Work Phone: [facility] 07-05-2023 09:06-0400 Body mass index (BMI) [Ratio] 32 kg/m2 Dr. Joni Campo Work Phone: 5(570)425-715121 [place] [address] 07-05-2023 09:06-0400 Body temperature 98 [degF] Dr. Joni Campo Work Phone: 1(461)221-810487 [address] 07-05-2023 09:06-0400 Body weight 98.[address] Joni Campo Work Phone: 1(557)890-199587 [address] 07-05-2023 09:06-0400 Diastolic blood pressure 80 mm[Hg] Dr. Joni Campo Work Phone: 1(148)454-063221 [place] [address] 07-05-2023 09:06-0400 Heart rate 70 /min Dr. Joni Campo Work Phone: 3(177)525-617587 [address] 07-05-2023 09:06-0400 Respiratory rate 16 /min Dr. Joni Campo Work Phone: 6(684)387-187921 [place] [address] 07-05-2023 09:06-0400 SaO2% (BldA) [Mass fraction] 97 % Dr. Joni Campo Work Phone: [facility] 07-05-2023 09:06-0400 Systolic blood pressure 150 mm[Hg] Dr. Joni Campo Work Phone: 7(167)943-253687 [address] 03-31-2023 09:36-0400 Body mass index (BMI) [Ratio] 33 kg/m2 Dr. Joni Campo Work Phone: 3(236)841-616321 [place] [address] 03-31-2023 09:36-0400 Body temperature 97.4 [degF] Dr. Joni Campo Work Phone: 5(055)979-616987 [address] 03-31-2023 09:36-0400 Body weight 101.[address] Joni Campo Work Phone: [facility] 03-31-2023 09:36-0400 Diastolic blood pressure 70 mm[Hg] Dr. Joni Campo Work Phone: [facility] 03-31-2023 09:36-0400 Heart rate 74 /min Dr. Joni Campo Work Phone: [facility] 03-31-2023 09:36-0400 Respiratory rate 18 /min Dr. Joni Campo Work Phone: [facility] 03-31-2023 09:36-0400 SaO2% (BldA) [Mass fraction] 98 % Dr. Joni Campo Work Phone: [facility] 03-31-2023 09:36-0400 Systolic blood pressure 140 mm[Hg] Dr. Joni Campo Work Phone: [facility] 01-17-2023 09:06-0500 Body height 175.[address] Joni Campo Work Phone: [facility] 01-17-2023 09:06-0500 Body mass index (BMI) [Ratio] 32.8 kg/m2 Dr. Joni Campo Work Phone: [facility] 01-17-2023 09:06-0500 Body weight 100.[address] Joni Campo Work Phone: [facility] 01-17-2023 09:06-0500 Diastolic blood pressure 60 mm[Hg] Dr. Joni Campo Work Phone: [facility] 01-17-2023 09:06-0500 Heart rate 68 /min Dr. Joni Campo Work Phone: [facility] 01-17-2023 09:06-0500 Respiratory rate 16 /min Dr. Joni Campo Work Phone: [facility] 01-17-2023 09:06-0500 Systolic blood pressure 112 mm[Hg] Dr. Joni Campo Work Phone: [facility] 11-16-2022 03:34-0500 Body mass index (BMI) [Ratio] 34.8 kg/m2 Dr. Joni Campo Work Phone: [facility] 11-16-2022 03:34-0500 Body temperature 97.1 [degF] Dr. Joni Campo Work Phone: [facility] 11-16-2022 03:34-0500 Body weight 106.[address] Joni Campo Work Phone: [facility] 11-16-2022 03:34-0500 Diastolic blood pressure 85 mm[Hg] Dr. Joni Campo Work Phone: [facility] 11-16-2022 03:34-0500 Heart rate 98 /min Dr. Joni Campo Work Phone: [facility] 11-16-2022 03:34-0500 Respiratory rate 19 /min Dr. Joni Campo Work Phone: [facility] 11-16-2022 03:34-0500 SaO2% (BldA) [Mass fraction] 95 % Dr. Joni Campo Work Phone: [facility] 11-16-2022 03:34-0500 Systolic blood pressure 180 mm[Hg] Dr. Joni Campo Work Phone: [facility] 09-18-2022 00:36-0400 Diastolic blood pressure 79 mm[Hg] Dr. Joni Campo Work Phone: [facility] Work Phone: 09-18-2022 00:36-0400 Systolic blood pressure 184 mm[Hg] Dr. Joni Campo Work Phone: [facility] Work Phone: 09-17-2022 23:07-0400 Body temperature 97.5 [degF] Dr. Joni Campo Work Phone: [facility] Work Phone: 09-17-2022 23:07-0400 Heart rate 81 /min Dr. Joni Campo Work Phone: [facility] Work Phone: 09-17-2022 23:07-0400 Respiratory rate 16 /min Dr. Joni Campo Work Phone: [facility] Work Phone: 09-17-2022 23:07-0400 SaO2% (BldA) [Mass fraction] 95 % Dr. Joni Campo Work Phone: [facility] Work Phone: 09-17-2022 23:03-0400 Body height 175.[address] Joni Campo Work Phone: [facility] Work Phone: 09-17-2022 23:03-0400 Body mass index (BMI) [Ratio] 33 kg/m2 Dr. Joni Campo Work Phone: [facility] Work Phone: 09-17-2022 23:03-0400 Body weight 101.[address] Joni Campo Work Phone: [facility] Work Phone: 04-28-2022 16:05-0400 Body height 175.[address] Joni Campo Work Phone: [facility] Work Phone: 04-28-2022 16:05-0400 Body mass index (BMI) [Ratio] 31 kg/m2 Dr. Joni Campo Work Phone: [facility] Work Phone: 04-28-2022 16:05-0400 Body weight 95.[address] Joni Campo Work Phone: [facility] Work Phone: 04-28-2022 16:05-0400 Diastolic blood pressure 76 mm[Hg] Dr. Joni Campo Work Phone: [facility] Work Phone: 04-28-2022 16:05-0400 Heart rate 76 /min Dr. Joni Campo Work Phone: [facility] Work Phone: 04-28-2022 16:05-0400 Respiratory rate 18 /min Dr. Joni Campo Work Phone: [facility] Work Phone: 04-28-2022 16:05-0400 SaO2% (BldA) [Mass fraction] 97 % Dr. Joni Campo Work Phone: [facility] Work Phone: 04-28-2022 16:05-0400 Systolic blood pressure 143 mm[Hg] Dr. Jnoi Campo Work Phone: [facility] Work Phone: 03-08-2022 16:32-0400 Body mass index (BMI) [Ratio] 32.2 kg/m2 Dr. Joni Campo Work Phone: [facility] Work Phone: 03-08-2022 16:32-0400 Body temperature 97.1 [degF] Dr. Joni Campo Work Phone: [facility] Work Phone: 03-08-2022 16:32-0400 Body weight 98.[address] Joni Campo Work Phone: [facility] Work Phone: 03-08-2022 16:32-0400 Diastolic blood pressure 80 mm[Hg] Dr. Joni Campo Work Phone: [facility] Work Phone: 03-08-2022 16:32-0400 Heart rate 69 /min Dr. Joni Campo Work Phone: [facility] Work Phone: 03-08-2022 16:32-0400 Respiratory rate 18 /min Dr. Joni Campo Work Phone: [facility] Work Phone: 03-08-2022 16:32-0400 SaO2% (BldA) [Mass fraction] 97 % Dr. Joni Campo Work Phone: [facility] Work Phone: 03-08-2022 16:32-0400 Systolic blood pressure 140 mm[Hg] Dr. Joni Campo Work Phone: [facility] Work Phone: Encounters Encounter Date Encounter Type Care Provider Facility Start: 07-31-2025 End: 07-31-[address] Joni Campo MD Work Phone: -Laboratory Start: 07-31-2025 End: 07-31-[address] Danyel Mendez MD -Laboratory Work Phone: Start: 07-31-2025 End: 07-31-2025 ambulatory Joni Campo Facility:[facility] Start: 03-26-2025 End: 03-26-2025 ambulatory Joni Campo Facility:[facility] Start: 01-29-2025 End: 01-29-[address] Joni Campo MD Work Phone: [facility] Work Phone: Start: 01-29-2025 End: 01-29-[address] Joni Campo MD -Outpatient Bone Densitometry Work Phone: Start: 01-29-2025 End: 01-29-2025 ambulatory Jnoi Campo Facility:[facility] Start: 2024 End: 2024 Patient encounter procedure Nargis RILEY -Laboratory Work Phone: Start: 2024 End: 2024 ambulatory Nargis Villalobos Facility:[facility] Start: 12-06-2024 End: 12-06-[address] Danyel Mendez MD -[facility] Work Phone: Start: 12-06-2024 End: 12-06-2024 ambulatory Joni Campo Facility:[facility] Start: 07-19-2023 End: 07-19-[address] Joni Campo Work Phone: [facility] Work Phone: Start: 07-19-2023 End: 07-19-[address] Joni Campo Work Phone: [facility]-Physical Therapy Work Phone: Start: 07-18-2023 End: 07-18-[address] Joni Campo Work Phone: [facility] Work Phone: Start: 07-06-[address] [facility] Start: 07-05-2023 End: 07-05-[address] Joni Campo Work Phone: [facility] Work Phone: Start: 07-04-2023 End: 07-04-[address] Joni Campo Work Phone: [facility] Work Phone: Start: 07-04-2023 End: 07-04-[address] [facility] Work [facility]: Start: 07-02-2023 End: 07-02-[address] Joni Campo Work Phone: [facility] Work Phone: Start: 07-02-2023 End: 07-02-[address] Joni Campo Work Phone: [facility]-Laboratory Work Phone: Start: 03-31-2023 End: 03-31-[address] Joni Campo Work Phone: [facility] Work Phone: Start: 03-05-[address] Joni Campo Work Phone: [facility]-Laboratory Start: 02-26-2023 End: 02-26-[address] Joni Campo Work Phone: [facility] Work Phone: Start: 02-26-2023 End: 02-26-[address] Joni Campo Work Phone: [facility]-Ultrasound, [facility] Start: 02-16-2023 Transcribe Orders Cely Hermosillo MD Work Phone: [facility] Scheduling Comment on above: Chronic kidney disea se, stage 3b (HCC) (Primary Dx) Start: 01-17-2023 End: 01-17-[address] Joni Campo Work Phone: [facility] Start: 01-04-2023 Non-patient / Non-visit Dr. Joni Campo Work Phone: [facility] Start: 11-16-2022 End: 11-16-2022 Emergency department patient visit Dr. Joni Campo Work Phone: [facility]-Emergency Department Start: 09-25-2022 End: 09-25-[address] Joni Campo Work Phone: [facility] Work Phone: Start: 09-25-2022 End: 09-25-[address] Joni Campo Work Phone: [facility]-Laboratory Start: 09-22-2022 End: 09-22-[address] Joni Campo Work Phone: [facility]-Outpatient Bone Densitometry Start: 09-17-2022 End: 09-18-2022 Emergency department patient visit Dr. Joni Campo Work Phone: [facility]-Emergency Department Start: 06-15-2022 Non-patient / Non-visit Dr. Joni Campo Work Phone: [facility] Start: 06-15-2022 End: 06-15-[address] Joni Campo Work Phone: [facility]-Cardiovascular Services Start: 04-28-2022 End: 04-28-[address] Joni Campo Work Phone: [facility] Start: 03-08-2022 End: 03-08-[address] Joni Campo Work Phone: [facility] Procedures Date Procedure Procedure Detail Performing [...] Phone: Start: 02-26-[address] Naazrio Campo Work Phone: Start: 11-16-2022 Plain chest [...] Influenza vaccination Influenz a Vaccine (Season Ended) [facility] Start: 02-16-2023 End: 02-17-2024 US Retroperitoneum US retroperitoneum Imaging Routine Chronic kidney disease, stage 3b (HCC) Expected: 02/16/2023, Expires: 02/17/2024 [facility] Work Phone: Comment on above: Expected: 02/16/2023 , Expires: 02/17/2024 Start: 2019 Zoster Vaccines (1 of 2) Zoster Vacc santosh (1 of 2) [facility] Start: 2009 Screening for malign ant neoplasm of breast Mammogram [facility] Start: 1999 Screening for malign ant neoplasm of cervix [facility] Start: 1990 Screening for malign ant neoplasm of cervix Pap Smear [facility] Start: 1988 DTaP/Tdap/Td Vaccine s (1 - Tdap) DTaP/Tdap/Td Vaccines (1 - Tdap) [facility] Start: 1987 Hepatitis C screening Hepatitis C Sc reening [facility] Start: 1981 Depression Screening Depression Scre ening [facility] Start: 1970 MMR Vaccines (1 of 1 - Standard series) MMR Vaccines (1 of 1 - Standard series) [facility] Start: 06-27-1970 COVID-19 Vaccine (#1) COVID-19 Vacci ne (#1) [facility] Start: 1969 Hepatitis B Vaccines (1 of 3 - 3-dose series) Hepatitis B Vaccines (1 of 3 - 3-dose series) [facility] Start: 1969 HIV screening HIV Screening [facility] Start: 1969 Screening for malign ant neoplasm of colon [facility] Lipid 1996 panel - S mitch or Plasma [facility] Work Phone: Patient Education [facility] Work Phone: Patient referral [facility] Work Phone: Immunizations Immunization Date Immunization Notes Care Provider Fa anne 07-29-[address] Joni Campo Work Phone: [facility] 07-14-2015 tetanus toxoid, redu delmis diphtheria toxoid, and acellular pertussis vaccine, adsorbed Dr. Joni Campo Work Phone: [facility] 11-28-2012 pneumococcal polysaccharide vaccine, [address] Joni Campo Work Phone: [facility] Payers Date Payer Category Payer Unknown [id number] 2024 Medicaid [id number] 2024 Self-pay [id number] 2014 [id number] 1997 Medicare [id number] Private Health Insurance [id number] Unknown [id number] Unknown [id number] [id number] Unknown [id number] [id number] Unknown [id number] [id number] Unknown [id number] Social History Date Type Detail Facility Start: 04-28-2022 End: 07-18-2023 Tobacco smoking status NHIS Unknown if ever smoked [facility] Start: 05-30-2019 Occasional [facility] Start: 05-30-2019 None [facility] Start: 05-30-2019 Spouse/ Signif icant Other [facility] Start: 05-30-2019 Non-smoker [facility] Start: 1970 Sex Assigned At Female W [facility] Start: 1970 Sex Assigned At Not on file [facility] Gender identity Not on file [facility] Start: 02-28-2024 Tobacco smoking status NHIS Never smoked tobacco (finding) [facility] Start: 02-13-2025 Sex Female (finding) [facility] Medical Equipment Procedure Code Equipment Code Equipment Origin al Text Equipment Identifier Dates Pen Needle, Diab etic 32 gauge x 5/32 needle Start: 05-01-2021 Pen Needle, Diab etic 32 gauge x 5/32 needle Start: 05-01-2021 Mental Status Date Assessment Result Facility 11-16-2022 Cognitive function Level Of Cons ciousness Awake;Alert;Appropriate;Follow s Commands [facility] Work Phone: Evaluation note 12-06-2024 Note Date & Type Note Facility 12-06-2024 Evaluation note Diagnosis Onset Date Resolution Diabetes mellitus type 1 chronic December 06, 2024 9:31am Essential hypertension chronic Ja nuary 2024 9:31am Hypothyroidism chronic November 9:31am Mixed hyperlipidemia chronic [place] 2024 9:31am Stage 4 chronic kidney disease chronic December 06 9:31am [facility] Work Phone: Discharge summary 08-25-2023 Note Date & Type Note Facility 08-25-2023 Discharge summary Note Date/Time August 25, 2023 5:15pm [facility] Physical Therapy [facility] [address] [place] [address] [address] [place] [address] / REHABILITATION SERVICES DISCHARGE SUMMARY MR#: [id number] Acct: [id number] Name: LAURA DANG Rep #: [id number] [...] <Electronically signed by Kira Rodriguez DPT> 08/25/23 1717 CC: Dr. Joni Campo MD ~ ELR Signed [facility] Work Phone: Evaluation note 12-29-2013 Note Date & Type Note Facility 12-29-2013 Evaluation note Diagnosis Onset Date Atherosclerotic heart diseas e of [place] coronary artery without angina pectoris chronic Essential hypertension chron ic Mixed hyperlipidemia chronic Presence of stent in coronar y artery December, [facility] Work Phone: Evaluation note Note Date & Type Note Facility Evaluation note Diagnosis Onset Date Diabetes type 1, controlled chronic Essential hypertension chron ic Hypothyroidism chronic Mixed hyperlipidemia chronic Obesity chronic Heart murmur acute Essential hypertension chron ic Mixed hyperlipidemia chronic Presence of stent in coronar y artery December, [facility] Work Phone: Evaluation note Note Date & Type Note Facility Evaluation note No assessment information availa [facility] Work Phone: Evaluation note Note Date & Type Note Facility Evaluation note Diagnosis Chronic kidney disease, stage 3b (HCC)- Primary documented in this encounter [facility] Evaluation note Note Date & Type Note Facility Evaluation note Diagnosis Onset Date Chronic renal failure, stage 3 (moderate) chronic Diabetes mellitus type 1 chr onic Essential hypertension chron ic Hypothyroidism chronic Mixed hyperlipidemia chronic Obesity chronic Diabetes mellitus type 1 chr onic Essential hypertension chron ic Hypothyroidism chronic Mixed hyperlipidemia chronic Obesity chronic [facility] Work Phone: Evaluation note Note Date & Type Note Facility Evaluation note Diagnosis Onset Date Diabetes mellitus type 1 chr onic Essential hypertension chron ic Hypothyroidism chronic Mixed hyperlipidemia chronic Obesity chronic Essential hypertension chron ic Mixed hyperlipidemia chronic Presence of stent in coronar y artery December, chronic [facility] Work Phone: Hospital Discharge instructions Note Date & Type Note Facility Hospital Discharge instructions Additional Instructions X-ray right forearm right wrist negative for fracture. Use wrist splint for comfort. Use Tylenol as needed every 6 hours. If pain persist after a week follow-up with your doctor for re-x-ray for any potential occult fractures. [facility] Work Phone: Reason for referral (narrative) Note Date & Type Note Facility Reason for referral (narrative) No reason for referral information available [facility] Work Phone: Chief Complaint and Reason [...] for Visit Atherosclerotic hear t disease of [place] coronary artery without angina pectoris Essential hypertension [...] May 30, 2019 1 2:40pm Power of Director Cardiology Yes May 30, 2019 12:40pm Advance Directive Response Recorded Date/ Time Living Will No September 17 11:14pm Power of Director Cardiology No September 17, 2022 11:14pm Advance Directive Response Recorded Date/ Time Living Will No September 17 10:14pm Power of Director Cardiology No September 17, 2022 10:14pm Advance Directive Response Recorded Date/ Time Name of Medical Power of Director Cardiology Jennifer Dang November 16, 2022 4:34am Living Will Yes November 16 022 4:34am Power of Director Cardiology Yes November 16, 2022 4:34am Advance Directive Response Recorded Date/ Time Living Will Yes November 16, 022 4:34am Power of Director Cardiology Yes November 16, 2022 4:34am Advance Directive Response Recorded Date/ Time Living Will No September 03 11:40pm Power of Director Cardiology No September 03 11:40pm Summary Purpose Additional [...] section and content) DATE CREATED AUTHOR 07/30/2022 [facility] DATE CREATED AUTHOR AUTHOR'S ORGANIZ ATION 08/16/2025 [facility] Care Teams (unrecognized sec tion and content) Team Status: Active Member Role Status Dates Dr. Joni Campo MD Family Provider Active Dr. Joni Campo MD Primary Care Provider Active Team Status: Inactive Member Role Status Dates Dr. Joni Campo MD Primary Care Provider, Referring P rovider Active Dr. Sanford Dave MD Attending Provider Active Team Status: Active Member Role Status Dates Dr. Joni Capmo MD Primary Care Provider Active Marisabel Driver [...] Status: Inactive Member Role Status Dates Dr. Join Campo MD Primary Care Provider Active Dr. [...] BE BASED ON THE PRIMARY CLINICAL RECORDS. [employer] provides no warranty or guarantee of the accuracy or completeness of information in this document.
--- NOTE | 2025-08-23 06:57 | PCM.RX.CS ---
Consult Antibiotic Management Pharmacy has been consulted to manage selected antibiotic: Vancomycin Type of Intervention Type of Consult: New start Suspected Infection Suspected Infection: Skin/Soft tissue and Osteomyelitis Prior Doses of Antibiotics Prior Doses of Antibiotics Received/Current Regimen: Vancomycin 1250 mg IV x 1 given 08/23/25 @ 0218 Labs Labs: Sodium 136 mmol/L (133-145) 08/23/25 01:47 Potassium 4.4 mmol/L (3.3-5.1) 08/23/25 01:47 Chloride 102 mmol/L (98-108) 08/23/25 01:47 Carbon Dioxide 18.8 mmol/L (21.0-32.0) L 08/23/25 01:47 Anion Gap 15 (5-15) 08/23/25 01:47 BUN 35 mg/dL (4-19) H 08/23/25 01:47 Creatinine 2.12 mg/dL (0.70-1.20) H 08/23/25 01:47 Est GFR (MDRD) Non-Af 27 (>60) L 08/23/25 01:47 BUN/Creatinine Ratio 16.4 RATIO (10-20) 08/23/25 01:47 Glucose 102 mg/dL (70-99) H 08/23/25 01:47 Dosing Weight Weight used for dosin.7 kg Estimated Creatinine Clearance Estimated Creatinine Clearance: ~ 36 Goal Trough Goal Trough: 15-20 mcg/mL Pharmacy Plan for Drug Dosing Pharmacy Plan for Drug Dosing: Vancomycin 1250 mg IV x 1 followed by 1250 mg Q24H Pharmacy Service will continue to monitor and adjust dosing as required. Follow-Up Labs Follow-Up Labs: Trough: Vancomycin Date/Time Labs Ordered Labs to be done on [date and time ordered]: 08/25/25 @ 0135
[2025-08-23 07:05] LABS: Cholesterol 187 mg/dL (<=200); Low Density Lipoprotein Calc. 129 mg/dL; Triglycerides 109 mg/dL; Very Low Density Lipoprotein 22 mg/dL (5-40); cholesterol:hdl ratio screen 5.17
--- NOTE | 2025-08-23 08:51 | WOUNDNOTE ---
wound photo: left dorsal foot
--- NOTE | 2025-08-23 08:52 | WOUNDNOTE ---
wound photo: right great toe
--- NOTE | 2025-08-23 08:53 | WOUNDNOTE ---
wound photo: right great toe
--- NOTE | 2025-08-23 09:17 | CON.PCM_ITS ---
Assessment & Plan Assessment/Plan (1) Non-pressure chronic ulcer of other part of right foot with necrosis of bone: (2) Osteomyelitis of great toe of right foot: (3) Osteomyelitis due to type 1 diabetes mellitus: (4) Metatarsal bone fracture: QUALIFIERS: Encounter type: initial encounter Fracture alignment: nondisplaced Fracture type: closed Laterality: right Metatarsal bone: fourth Qualified Code(s): S92.344A - Nondisplaced fracture of fourth metatarsal bone, right foot, initial encounter for closed fracture PLAN: Plan Patient seen and evaluated Radiographs were reviewed demonstrating erosive changes the distal tuft of the right hallux consistent with osteomyelitis. Labs were reviewed and unremarkable however there is significant tissue destruction with depth to the ulceration towards the level of bone with tissue necrosis and scant purulence of the distal tuft of the hallux. Right Hallux was examined noting extensive necrosis of the distal tuft with scant purulence and exposure of bone underlying the necrotic tissue, which is black in color indicating osteomyelitis. There was also a plantar ulceration near the sulcus with significant tissue destruction. Cultures were obtained on floor, awaiting results Medicine team following for medical management, they are greatly appreciated Wound nurse following for assistance in dressing changes she is appreciated. Discussed with the patient and bedside today the need for surgical intervention for removal/amputation of the right hallux. They are understanding of the need for amputation to prevent further spread of infection and more proximal amputation. They are understanding that this is not a elective procedure and this is a limb salvage procedure. Surgical procedure was discussed in detail. Typical postoperative course was explained in detail. Risks and complications were discussed in detail. Risks include but are not limited to the following: Pain, continued pain, complex regional pain syndrome, infection, bleeding, dehiscence, delayed healing/nonhealing, need for further surgical intervention, phantom pain, neuritis/numbness, swelling, scarring, poor cosmetic appearance, difficulty with ambulation, difficulty wearing shoe gear, inability to wear shoe gear, deviated digits, transfer lesions, stroke, heart attack, addiction to pain medication, clotting, loss of function, loss of limb, loss of life. Patient is understanding of these and was able to repeat these back. is also understanding of this and in agreement with the need for the surgical procedure. Patient did sign medical consent prior to procedure at own free will. Patient had been n.p.o. since last night and was given no food/drink prior to surgical intervention. Operative limb was signed prior to entering OR. Patient will be returned to floor following the procedure with instructions to leave surgical dressings in place Patient may ambulate in a CAM boot/fracture boot following procedure as she does have difficulty getting around with her blindness I will continue to follow while in house Shubham Henderson Jr. D.P.M. 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 Patient's states that he was checking his 's feet last night and noticed worsening wound with what appeared to be infection and he did bring her to the ED for further evaluation. She has PMHx of DM type I with peripheral polyneuropathy on insulin pump followed by Dr. 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 She reports her symptoms began a few days prior to admission when she had trimmed her toenails accidentally causing an iatrogenic lesion to the distal tuft of the right hallux. She reports over the first few days she never had an issue with the toe however symptoms gradually worsened and the toe began to discolor and pain also worsened. did note this upon inspection of her foot and did bring her to the ED as stated above. She denies N/V/F/chills. Denies chest pain and abdominal pain. She did undergo workup in the ED with unremarkable laboratory studies and vital signs. Radiographs did demonstrate subacute healing fractures of the 3rd and 5th metatarsal bones in addition to second metatarsal base. Radiographs also did demonstrate erosive changes of the distal tuft of the hallux consistent with osteomyelitis. Physical examination in the ED did demonstrate necrosis of the right hallux with small purulence at the distal tuft. ED physician did contact me early a.m. directly in addition to hospitalist and decision was made to admit for IV antibiotics and for further evaluation. Upon seeing patient in consultation it was apparent that infection was more progressive with extensive tissue damage and with the erosive changes of bone consistent with osteomyelitis discussion was made for surgical consultation for amputation. COUNTS INCLUDE 234 BEDS AT THE [facility] Medical History Presence of insulin pump Stage 4 chronic kidney disease Diabetes mellitus type 1 COVID-19 Cat scratch of right hand Difficulty balancing when standing Shoulder pain Kidney disease Diabetes mellitus type 1, uncontrolled, insulin dependent Old myocardial infarction Mixed hyperlipidemia Essential hypertension Hypophosphatemia Retinopathy Hearing loss Family history of hypertension Atherosclerotic heart disease of [place] coronary artery without angina pectoris Amputation of left middle finger Pericarditis ST elevation myocardial infarction (STEMI) of anterior wall Anxiety Rash Hives Asthma Rheumatoid arthritis Hypothyroidism Blindness Diabetic retinopathy Home Medications ?Medication ?Instructions ?Recorded ?Last Taken ?Type cholecalciferol (vitamin D3) 50 50 mcg PO DAILY Unknown History mcg (2,000 unit) capsule ascorbic acid (vitamin C) 1,000 mg 1 g PO DAILY Unknown History tablet Novopen Echo (insulin admin #1 ea 05/01/21 Unknown Rx supplies) pen needle, diabetic 32 gauge x #50 ea 05/01/21 Unknow n History aspirin 81 mg tablet,delayed 81 mg PO DAILY 03/08/22 U nknown History release (Adult Low Dose Aspirin) magnesium oxide 400 mg PO DAILY 01/17/23 Unk nown History nitroglycerin 0.4 mg sublingual 0.4 mg sublingual Q5M PRN chest 01/17/23 Unknown Rx tablet pain #25 tabs dapagliflozin propanediol 10 mg 10 mg PO DAILY kidney 07/05/23 Unknown History tablet (Farxiga) carvedilol 6.25 mg tablet 3.125 mg PO BID Needs SCRIPT TALK 11/15/23 Unknown History LABELS: pt is blind ramipril 5 mg capsule 10 mg PO QDAY 02/28/24 Unkno wn History levothyroxine 125 mcg tablet 125 mcg PO .6 days per we ek 08/01/25 Unknown History clopidogrel 75 mg tablet 75 mg PO DAILY NEEDS SCRIPTT ALK 08/07/25 Unknown Rx LABELS: patient is blind #90 tabs insulin aspart U-100 100 unit/mL 100 unit continuous s ubcutaneous 08/12/25 Unknown Rx subcutaneous solution (Novolog infusion .continuous #9 0 mL U-100 Insulin aspart) Allergy/AdvReac Type Severity Reaction Status Date / Time adhesive tape Allergy Severe Unknown Verified 08/23/25 00:35 latex Allergy Rash Verified 08/23/25 00:35 Family History Mother CAD (coronary artery disease) Hx of CABG Brother Hypertension Melanoma Father Atrial fibrillation Grandmother Lung cancer Brother Diabetes Other Cancer anesthesia allergy Surgical History History of cholecystectomy Hx of eye surgery Presence of stent in coronary artery (~01/23/14) History of coronary angioplasty (~11/08/13) H/O: H/O vitrectomy H/O breast augmentation History of tonsillectomy S/P appendectomy H/O angioplasty History of left heart catheterization Social History Smoking Status: Never smoker second hand exposure: No alcohol intake: current alcohol intake frequency: a few times a month substance use type: does not use caffeine: Yes Type: coffee Number of servings: 6 and tea Number of servings: 2 ROS Constitutional Constitutional: Denies fever(s), malaise or night sweats Eyes Eyes: Reports change in vision; Denies diplopia ENT HEENT: Denies dysphagia, rhinorrhea, sinus pressure or sore throat Cardiovascular Cardiovascular: Denies chest pain, claudication or palpitations Respiratory/Chest Respiratory/Chest: Denies dyspnea, shortness of breath at rest or wheezing Gastrointestinal Gastrointestinal: Denies abdominal pain, constipation, diarrhea, nausea or vomiting Genitourinary Genitourinary: Denies dysuria, hematuria or urinary urgency Musculoskeletal Musculoskeletal: Denies joint pain, joint stiffness or joint swelling Integumentary Integumentary: Denies jaundice, lesions, pruritus or rash Neurologic Neurologic: Denies dizziness or seizures Psychiatric Psychiatric: Denies anxiety or depression Endocrine Endocrinology: Denies polydipsia, polyphagia or polyuria Hematologic/Lymphatic Hematologic/Lymphatic: Denies easy bleeding or easy bruising Allergic/Immunologic Allergic/Immunologic: Denies wheezing Physical Exam Const alert, oriented x3 and no apparent distress General Appearance: cooperative HEENT normocephalic Eyes Eyes Narrative: Diminished vision secondary to diabetic retinopathy Neck General: normal visual inspection Lymph Lymphatic: no lymphadenopathy noted and no lymphedema noted Resp normal respiratory effort Cardio regular rate and regular rhythm Extremity no calf tenderness Extremity Narrative: Right lower extremity: Vascular: DP and PT pulses weakly palpable. CFT is less than 5 seconds to digits. Normal temperature gradient. Hair growth is absent to digits and lower extremity Neurologic: Protective sensation is diminished secondary to diabetic peripheral polyneuropathy Musculoskeletal: Muscle strength 5/5 age-appropriate. No pain to palpation of calf. No pain to palpation about the ulcerative site of the right hallux. There is decreased range of motion of the first metatarsophalangeal joint without pain or crepitus. Decreased range of motion of the ankle joint dorsiflexion with knee extended without pain or crepitus. Hammertoe deformity noted to digits 1 through 5. Dermatologic: There is a full-thickness ulceration to the distal and plantar hallux. Distal tuft ulceration demonstrates necrosis at the distal portion of the nailbed with some scant purulence. Wound does probe deep towards the bone. Plantar ulceration demonstrates mixed fibrogranular layer especially laterally with more tissue destruction near the sulcus region of the digit. There is foul odor to the right hallux appreciated. Erythema does extend about the digit across the dorsal foot towards the ankle but this is improving on IV antibiotic. Left lower extremity: Vascular: DP and PT pulses weakly palpable. CFT is less than 5 seconds to digits. Normal temperature gradient. Hair growth is absent to digits and lower extremity Neurologic: Protective sensation is diminished secondary to diabetic peripheral polyneuropathy Musculoskeletal: Muscle strength 5/5 age-appropriate. No pain to palpation of calf. No pain to palpation about the ulcerative site of the right hallux. There is decreased range of motion of the first metatarsophalangeal joint without pain or crepitus. Decreased range of motion of the ankle joint dorsiflexion with knee extended without pain or crepitus. Hammertoe deformities noted to digits 1 through 5. Dermatologic: There is a superficial abrasion to the dorsal aspect of the left foot with no signs of infection. Otherwise skin unremarkable Neuro moves all extremities Lab / Micro Data 08/23/25 01:47 08/23/25 01:47 Labs: Laboratory Results - last 24 hr 08/23/25 01:47: WBC 10.1, RBC 4.24, Hgb 12.6, Hct 37.3, MCV 88.0, MCH 29.7, MCHC 33.8, RDW Std Deviation 42.4, RDW Coeff of Lucero 13.1, Plt Count 371, MPV 10.4, Immature Gran % (Auto) 0.500, Neut % (Auto) 75.8 H, Lymph % (Auto) 12.0 L, Burnett % (Auto) 9.8, Eos % (Auto) 1.3, Baso % (Auto) 0.6, Absolute Neuts (auto) 7.6, Absolute Lymphs (auto) 1.21, Nucleated RBC % 0, Sodium 136, Potassium 4.4, Chloride 102, Carbon Dioxide 18.8 L, Anion Gap 15, BUN 35 H, Creatinine 2.12 H, Estim Creat Clear Calc 35.92 L, Est GFR (MDRD) Non-Af 27 L, BUN/Creatinine Ratio 16.4, Glucose 102 H, Hemoglobin A1c 6.8 H, Lactic Acid < 1.0, Calcium 9.2, Triglycerides 109, Cholesterol 187, LDL Cholesterol, Calc 129, VLDL Cholesterol 22, HDL Cholesterol 36 L, Cholesterol/HDL Ratio 5.17, Procalcitonin 0.44 H, TSH 2.330 08/23/25 06:56: POC Glucose 110 H Imaging Radiology Impression Foot X-Ray 08/23/25 01:34 IMPRESSION: Soft tissue edema and swelling. Fragmentation/erosive changes of the tip of the distal phalanx of the big toe, suspicious for osteomyelitis. Subacute healing fractures in the 3rd and 5th metatarsal bones. Ununited fracture in the base of the 2nd metatarsal bone. Moderate osteopenia. Hallux valgus deformity. Hammertoes deformities of the 2nd through 5th toes. [facility] 08/23/25 02:00 IMPRESSION: Soft tissue edema and swelling overlying the medial and lateral malleoli. Detached bone fragment adjacent to the base of the 4th or 5th metatarsal bone identified on the lateral view, probably presenting acute fracture. Reading Location: [place] [id number]
[2025-08-23] MEDS: Zinc Sulfate 50 mg zinc (220 mg) ORAL capsule PO (09:30)
[2025-08-23] MEDS: Magnesium Chloride 64 MG Delay Rel.Tablet 128 MG PO (09:31)
[2025-08-23] MEDS: Lactobacillis Acidophilus 1 CAP PO ×3 (09:31→22:36)
[2025-08-23] MEDS: Cholecalciferol (VIT D3) 25 MCG TABLET (1,000 UNITS) 50 MCG PO (09:31)
--- NOTE | 2025-08-23 10:18 | CASEMGMT ---
HENOK JUAREZ Assessment: Face to Face with pt for initial transition planning/care coordination assessment. HENOK JUAREZ introduced self and role at [facility], pt voices understanding and consents to assessment. Pt is A&O x4 and answers all questions appropriately at this time. Pt lying in bed in no distress. [employer] just left room. Care providers, pharmacy, and demographics verified/updated. Admitting Dx: osteomyelitis of the R great toe Strata Score: 2 PCP:Alber Specialists:marko Mendez; Jaimee nephro; John Paul, cardio Preferred Pharmacy: [facility] Insurance: [place], [facility] Prescription Benefit: yes LNOK: Prasanna Dang, ; Jeferson Dang, son Living Arrangements: Pt lives with and sonin a split level home with 1 step to enter through the garage and 2 to enter through the front. Once in front door there are 4 steps to main level and 10 up to bedroom. Pt reports she is I in ADLs and IADLs. Pt denies concerns at home. Transportation: Pt family transports her to medical appts or uses [facility] van. DME:blind cane, insuling pump, CGM and BGM with all supplies. Pt thinks she may have crutches. HHC/SNF: Pt denies hx of HHC and SNF stays. Pt states no concerns with going home at time of dc.Pt to have amputation this date. Discussed should pt need DME, local providers and pt chose [facility]. Pt states no further concerns/needs. CM to follow. Advised pt to ask CM if any further questions/concerns/needs arise, voices understanding. Pt Goal: Home Plan: Home pending surgery and course of hospitalization. Elba WHITING CM
--- NOTE | 2025-08-23 11:10 | NURSING ---
Surgery transport came to floor at 1110 to take pt for surgery on R great toe. This RN and body former, Abbi, were not aware that surgery was confirmed and were not given a pickup time. Pt aware that Dr and anesthesiologist will talk to pt in preop area.
--- NOTE | 2025-08-23 11:26 | PN.HOSP_ITS ---
Reason for Visit Chief Complaint: Worsening Right Foot Wound and Pain. Objective Data Objective Data Vital Signs: Vital Signs Temp Pulse Resp BP Pulse Ox O2 Del Method 98.4 F 80 17 142/70 H 97 Room Air 08/23/25 07:50 08/23/25 07:50 08/23/25 07:50 08/23/25 07:50 08/23/25 07:50 08/23/25 07:50 Oxygen Delivery Method Room Air Weight: 193 lb 6 oz Body Mass Index (BMI) 28.5 Intake & Output: Intake and Output for Last 24 Hours 08/21/25 08/22/25 08/23/25 23:59 23:59 23:59 Intake Total 325 / 325 Balance 325 / 325 Lab / Micro Data 08/23/25 01:47 08/23/25 01:47 Labs: Laboratory Results - last 24 hr 08/23/25 01:47: WBC 10.1, RBC 4.24, Hgb 12.6, Hct 37.3, MCV 88.0, MCH 29.7, MCHC 33.8, RDW Std Deviation 42.4, RDW Coeff of Lucero 13.1, Plt Count 371, MPV 10.4, Immature Gran % (Auto) 0.500, Neut % (Auto) 75.8 H, Lymph % (Auto) 12.0 L, Bladen % (Auto) 9.8, Eos % (Auto) 1.3, Baso % (Auto) 0.6, Absolute Neuts (auto) 7.6, Absolute Lymphs (auto) 1.21, Nucleated RBC % 0, Sodium 136, Potassium 4.4, Chloride 102, Carbon Dioxide 18.8 L, Anion Gap 15, BUN 35 H, Creatinine 2.12 H, Estim Creat Clear Calc 35.92 L, Est GFR (MDRD) Non-Af 27 L, BUN/Creatinine Ratio 16.4, Glucose 102 H, Hemoglobin A1c 6.8 H, Lactic Acid < 1.0, Calcium 9.2, Triglycerides 109, Cholesterol 187, LDL Cholesterol, Calc 129, VLDL Cholesterol 22, HDL Cholesterol 36 L, Cholesterol/HDL Ratio 5.17, Procalcitonin 0.44 H, TSH 2.330 08/23/25 06:56: POC Glucose 110 H Radiography Diagnostic Testing: Radiology Impression Foot X-Ray 08/23/25 01:34 IMPRESSION: Soft tissue edema and swelling. Fragmentation/erosive changes of the tip of the distal phalanx of the big toe, suspicious for osteomyelitis. Subacute healing fractures in the 3rd and 5th metatarsal bones. Ununited fracture in the base of the 2nd metatarsal bone. Moderate osteopenia. Hallux valgus deformity. Hammertoes deformities of the 2nd through 5th toes. Reading Location: [place] [address] Ankle X-Ray 08/23/25 02:00 IMPRESSION: Soft tissue edema and swelling overlying the medial and lateral malleoli. Detached bone fragment adjacent to the base of the 4th or 5th metatarsal bone identified on the lateral view, probably presenting acute fracture. Reading Location: [place] [address] Physical Exam Narrative Seen and examined in afternoon after the surgery. Patient had right great toe amputation in the morning. She had mild nausea but has resolved. Doing well. Heart rate and blood pressure are in acceptable range. Talked to the patient's at the bedside. Physical exam General: Alert, Oriented x3, Cooperative HEENT: Atraumatic, PERRLA, EOMI, Normocephalic. Oral: No Gingival or Mucosal Lesions/ Ulcerations Neck: Supple, No JVD, Negative Carotid Bruits Chest wall/Lungs: Air entry diminished in bilateral lung bases. No crepitation/rhonchi Cardiovascular: Regular rate and rhythm, Normal S1,S2, No M/G/R Abdomen: Bowel Sounds Present, Soft, Non Tender, Non-Distended : No dysuria. No renal angle tenderness. No suprapubic tenderness. Extremities: No edema, Capillary Refill Less than 3 Seconds Skin: Right great toe amputation, covered with dressing and Arpit wrap bandage. No active bleeding. Musculoskeletal: No Tenderness to Palpation of Joints or Extremities Neurological: Cranial nerves II-XII grossly intact, DTR 2+/4. Exact sensation difficult to intubated after anesthesia and surgery. Left foot no acute diminished sensation. Left great toe position sense is normal. Psych/Mental Status: Normal Affect, Appropriate. Assessment & Plan Assessment/Plan (1) Osteomyelitis due to type 1 diabetes mellitus: (2) Metatarsal bone fracture: QUALIFIERS: Encounter type: initial encounter Fracture alignment: nondisplaced Fracture type: closed Laterality: right Metatarsal bone: fourth Qualified Code(s): S92.344A - Nondisplaced fracture of fourth metatarsal bone, right foot, initial encounter for closed fracture (3) Diabetes mellitus type 1: QUALIFIERS: Diabetes mellitus complication status: with hyperglycemia Qualified Code(s): E10.65 - Type 1 diabetes mellitus with hyperglycemia (4) Presence of insulin pump: (5) Presence of stent in coronary artery: (6) Overweight (BMI 25.0-29.9): (7) Stage 4 chronic kidney disease: PLAN: Plan 54-year-old female with history of type 1 diabetes mellitus on insulin alcohol and CKD came to ED after 1 week of trip and fall right ankle. She clipped her nails temporarily injured a small piece of skin and then started having swelling and redness necrosis and drainage with foul smell of great toe. 1. Acute osteomyelitis of great toe of right side complicated with type 1 diabetes mellitus and nonpressure chronic ulcer of right foot: Patient is being admitted on [facility] floor. X-rays of right foot soft tissue edema and swelling with fragmentation/erosive changes of the tip of the distal phalanx of the big toe suspicious for Osteomyelitis with subacute healing fractures in the 3rd and 5th metatarsal bones. Ununited fracture of the base of the second metatarsal bone with moderate osteopenia. X-ray of right ankle showed soft tissue edema and swelling over medial and lateral malleoli with detached bone fragment reduced to base of 4th and 5th metatarsal bone raising possibility of acute fracture. Special Programs Director was consulted. Diagnosis of acute osteomyelitis therefore taken for or underwent right great toe amputation. Operative report pending. Pain controlled. On IV antibiotics vancomycin and Zosyn. Operative tissue culture was sent. Blood culture pending. 2. DM-1; well-controlled on insulin pump with reality of diabetic neuropathy, diabetic retinopathy with legal blindness- Continue insulin pump for now with patient previously demonstrating excellent ability to manage her blood glucose. Though on exam of foot no acute diminished sensation was found. 3. CAD; s/p STEMI with subsequent mid-RCA stent with angioplasty to LAD and proximal PDA at [facility] (~2013) on baby aspirin, clopidogrel and as needed SL NTG compounding #1 & #2 - Hold baby aspirin and clopidogrel with likely need for surgical intervention from podiatry. Give SL NTG as needed for anginal type chest pain. 4. Overweight; BMI of 29.4 this admission adding to the burden of disease outlined from #1 - #3 - Weight loss was recommended. Check TSH. This complicates her case and may hamper recovery. 5. CKD; stage IV; on dapagliflozin for renal protection followed by Dr. Hermosillo - Stable with serum creatinine of 2.12 mg/dL and BUN of 35 mg/dL with eGFR of 27 mL/min which is close to her baseline level. We will hold dapagliflozin until need for surgery is clarified. 6. Essential hypertension; on ramipril and carvedilol twice daily - Continue present therapy plus give prn IV hydralazine for systolic blood pressure > 160 mmHg. 7. 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 8 history of mild concentric LVH; stage I diastolic dysfunction and normal LVEF ~65% (on last echo done here 05/2022) - Noted. Check new echocardiogram to evaluate LVEF with likely impending surgery and complicated medical history. Multiple comorbidities which include rheumatoid arthritis chronic, chronically stable asthma and history of left middle finger amputation DVT prophylaxis - SCD's only with likely impending surgical intervention. Charges/Coding Visit Charges Inpatient E&M: 95505 Subs Hosp L2
[2025-08-23] MEDS: 0.9% Normal Saline (1000mL) 1,000 ML 15 ML IV (11:36)
--- NOTE | 2025-08-23 11:47 | PRE.ANES_ITS ---
ASA Classification* ASA Classification ASA Classification: 3 and E Assessment & Plan Anesthesia* Anesthesia Assessment Anesthesia Assessment: Discussed sedation and/or anesthesia options, risks, benefits, and alternatives with patient/parents/legal guardian/POA. Questions invited. The patient/parents/legal guardian/POA seems to understand and agrees to proceed with anesthesia plan. Reviewed the physical assessment, medical history, allergy history and patient home medications list prior to surgery/procedure/anesthetic and documented any changes. Performed airway and anesthesia risk assessments. Anesthesia Type Anesthesia Type: General, MAC and Block History Source History Obtained from:: Patient and Chart Anesthesia Focused Assessment* Temperature: 98.4 F Pulse Rate: 80 Blood Pressure: 142/70 Respiratory Rate: 17 Pulse Ox: 97 Oxygen Delivery Method: Room Air Airway Assessment Mouth opens: >3 cm Mallampati Score: II Teeth Condition: Missing Neck Range of motion (ROM): Full ROM Labs Anesthesia Preop lab: CBC WBC, (4.4-11.0) 10.1 K/mm3 Today, 01:47 RBC, (4.2-5.4) 4.24 M/mm3 Today, 01:47 Hgb, (12.0-15.0) 12.6 g/dL Today, 01:47 Hct, (37-47) 37.3 % Today, 01:47 Plt Count, (150-450) 371 K/mm3 Today, 01:47 CHEMISTRY Potassium, (3.3-5.1) 4.4 mmol/L Today, 01:47 Sodium, (133-145) 136 mmol/L Today, 01:47 Magnesium, (1.6-2.6) 2.0 mg/dL 10/25/20, 11:11 Phosphorus, (2.7-4.5) 3.8 mg/dL 07/31/25, 12:32 BUN, (4-19) 35 mg/dL H Today, 01:47 Creatinine, (0.70-1.20) 2.12 mg/dL H Today, 01:47 Glucose, (70-99) 102 mg/dL H Today, 01:47 POC Glucose, (74-106) 110 mg/dL H Today, 06:56 TSH, (0.300-4.200) 2.330 uIU/mL Today, 01:47 COAG PT, (11.7-14.9) 14.4 SECONDS 05/30/19, 09:36 Pre-Assessment Diagnosis/Proposed Procedure Planned Operative Procedure(s): Right toe amputation, hallux Anesthesia History Anesthesia History - training and development professional: Anesthesia History - training and development professional Hx Hospitalization No 05/30/19 06:42 Any Problems With Anesthesia Cholinesterase deficiency You/Your Family Experience No 04/24/15 15:06 fever (hyperthermia) with Relationship Recent Exposure to Contagious Disease Does patient have nerve stimulator Patient instructed to have device shut off --Does patient have Pacemaker or ICD? When Was Last Pacemaker Check QUESTION #4 FULL TEXT: You/Your Family Experience fever (hyperthermia) with Anesthesia Last Oral Intake Last Oral intake: Last Oral Intake NPO since Meds taken in AM with sips of water? Meds patient instructed to take am of surgery PONV PONV - training and development professional: PONV - training and development professional Female HX of Motion Sickness HX of N/V After Surgery Non-Smoker Duration of Surgery greater than 60 minutes Number of Risk Factors PONV Score Height & Weight Height & Weight: Anesthesia: Height & Weight Height 5 ft 9 in 08/23/25 05:55 Weight: 87.713 kg 08/23/25 05:55 Body Mass Index (BMI) 28.5 08/23/25 05:55 Respiratory Assessment Respiratory Assessment - training and development professional: Respiratory Tract Infection Hx - training and development professional Hx Respiratory Tract Infection STOP Sleep Apnea STOP Sleep Apnea - training and development professional: STOP Sleep Apnea - training and development professional Hx Hypertension Yes 08/23/25 05:55 Hx Sleep Apnea No 08/23/25 05:55 CPAP BIPAP Do you snore loudly (louder No 08/23/25 05:55 than talking or can be heard Do you often feel tired/ No 08/23/25 05:55 fatigued/ sleepy during daytime? Has anyone observed you stop No 08/23/25 05:55 breathing during sleep? STOP Results Negative 08/23/25 05:55 QUESTION #5 FULL TEXT : Do you snore loudly (louder than talking or can be heard through closed doors)? Tobacco Use History Tobacco Use History - training and development professional: Tobacco Use History - training and development professional Tobacco Use Smoking Status Never smoker 08/23/25 05:55 Hx Tobacco Use No 08/23/25 05:55 Years Smoking Packs Smoked per Day Smoking Cessation Date was within the last 15 years Hx Smoking Cessation Date Hx Smoking Cessation Counseling Hematologic Medial History Hematologic Hx - training and development professional: Hematologic Medical Hx - pressure tester Hx of Blood Transfusion No 08/23/25 05:55 Hx of Transfusion in last 3 No 08/23/25 05:55 Months Date of Last Transfusion (if within last 3 months) Ever experience any problems No 08/23/25 05:55 with transfusion(s)? Specify any problems Hx of Preganancy in last 3 No 08/23/25 05:55 Months Nurse Filling Out Transfusion [email or web address] 08/23/25 05:55 & Questions: Date: 08/23/25 08/23/25 05:55 Time: 06:31 08/23/25 05:55 Patient unable to answer at this time (ie. confused, unrespo /Reproduction History /Reproductive History - training and development professional: /Reproductive Hx- training and development professional Hx Now Gestational Age (in weeks): EDC: Hx Hx Para Hx Section SAB Active Medications Active Medications: Current Medications Generic Name Dose Route Start Last Admin Trade Name Freq PRN Reason Stop Dose Admin Acetaminophen 650 mg 08/23/25 06:28 Acetaminophen 325 Mg Tablet PO Q6H PRN PRN Pain 1-5/10 or Fever Albuterol Sulfate 2.5 mg 08/23/25 06:28 Albuterol 2.5 Mg/3 Ml Vial.Neb. INHALATION Q2H PRN Bronchospasm Ascorbic Acid 1,000 mg 08/23/25 10:00 08/23/25 09:30 Ascorbic Acid 500 Mg Tablet PO 1,000 mg DAILY KT Administration Carvedilol 6.25 mg 08/23/25 10:00 08/23/25 09:30 Carvedilol 6.25 Mg Tablet PO 6.25 mg BID KT Administration Cholecalciferol 50 mcg 08/23/25 10:00 08/23/25 09:31 Cholecalciferol (Vit D3) 25 Mcg Tablet (1,000 Units) PO 50 mcg DAILY KT Administration Hydralazine HCl 5 mg 08/23/25 06:28 Hydralazine 20 Mg/Ml Vial IV Q8H PRN PRN SBP GREATER THAN 160 Protocol Piperacillin Sod/Tazobactam 50 mls @ 12.5 mls/hr 08/23/25 14:00 Sod 3.375 gm/ Sodium Chloride IV Q8 KT Vancomycin IV-PHARMACY TO DOSE 500 mls @ 250 mls/hr 08/23/25 06:28 1 each/ Sodium Chloride IV PRN PRN Rx to Dose Protocol Sodium Chloride 250 mls @ 15 mls/hr 08/23/25 06:31 IV .[id number] PRN Additional IVPB Infusion Vancomycin HCl 1,250 mg/ 275 mls @ 167 mls/hr 08/24/25 02:00 Sodium Chloride IV Q24H KT Sodium Chloride 1,000 mls @ 15 mls/hr 08/23/25 11:30 08/23/25 11:36 IV 15 mls/hr .Q48H KT Administration Insulin Aspart 0 unit 08/23/25 10:00 08/23/25 11:11 Insulin Basal Pump SC Not Given Q24 KT Levothyroxine Sodium 125 mcg 08/23/25 07:00 08/23/25 07:47 Levothyroxine 125 Mcg Tablet PO 125 mcg SuWeThFrSa@0600 KT Administration Magnesium Chloride 128 mg 08/23/25 10:00 08/23/25 09:31 Magnesium Chloride 64 Mg Delay Rel.Tablet PO 128 mg DAILY KT Administration Morphine Sulfate 2 mg 08/23/25 06:28 Morphine 2 Mg/Ml Syringe IV Q4H PRN PRN Pain Score 6-10 Nitroglycerin 0.4 mg 08/23/25 06:28 Nitroglycerin (Inpatient Use) 0.4 Mg Tab.Subl SL Q5M PRN chest pain Ondansetron HCl 4 mg 08/23/25 06:28 Ondansetron 4 Mg/2 Ml Vial IV Q6H PRN PRN NAUSEA/VOMITING Ramipril 10 mg 08/23/25 10:00 08/23/25 09:30 Ramipril 10 Mg Capsule PO 10 mg DAILY KT Administration Protocol Sodium Chloride 10 - 40 ml 08/23/25 06:31 0.9% Saline Lock 10 Ml Syringe IV UD PRN SALINE FLUSH Vancomycin Protocol 1 lab 08/25/25 00:30 Vancomycin Trough/Random Due 08/25/25 02:30 DAILY KT Zinc Sulfate 50 mg 08/23/25 10:00 08/23/25 09:30 Zinc Sulfate 50 Mg Zinc (220 Mg) Oral Capsule PO 50 mg DAILY KT Administration PFSH Medical History Presence of insulin pump Stage 4 chronic kidney disease Diabetes mellitus type 1 COVID-19 Cat scratch of right hand Difficulty balancing when standing Shoulder pain Kidney disease Diabetes mellitus type 1, uncontrolled, insulin dependent Old myocardial infarction Mixed hyperlipidemia Essential hypertension Hypophosphatemia Retinopathy Hearing loss Family history of hypertension 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 Pericarditis ST elevation myocardial infarction (STEMI) of anterior wall Anxiety Rash Hives Asthma Rheumatoid arthritis Hypothyroidism Blindness Diabetic retinopathy Home Medications ?Medication ?Instructions ?Recorded ?Last Taken ?Type cholecalciferol (vitamin D3) 50 50 mcg PO DAILY Unknown History mcg (2,000 unit) capsule ascorbic acid (vitamin C) 1,000 mg 1 g PO DAILY Unknown History tablet Novopen Echo (insulin admin #1 ea 05/01/21 Unknown Rx supplies) pen needle, diabetic 32 gauge x #50 ea 05/01/21 Unknow n History aspirin 81 mg tablet,delayed 81 mg PO DAILY 03/08/22 U nknown History release (Adult Low Dose Aspirin) magnesium oxide 400 mg PO DAILY 01/17/23 Unk nown History nitroglycerin 0.4 mg sublingual 0.4 mg sublingual Q5M PRN chest 01/17/23 Unknown Rx tablet pain #25 tabs dapagliflozin propanediol 10 mg 10 mg PO DAILY kidney 07/05/23 Unknown History tablet (Farxiga) carvedilol 6.25 mg tablet 3.125 mg PO BID Needs SCRIPT TALK 11/15/23 Unknown History LABELS: pt is blind ramipril 5 mg capsule 10 mg PO QDAY 02/28/24 Unkno wn History levothyroxine 125 mcg tablet 125 mcg PO .6 days per we ek 08/01/25 Unknown History clopidogrel 75 mg tablet 75 mg PO DAILY NEEDS SCRIPTT ALK 08/07/25 Unknown Rx LABELS: patient is blind #90 tabs insulin aspart U-100 100 unit/mL 100 unit continuous s ubcutaneous 08/12/25 Unknown Rx subcutaneous solution (Novolog infusion .continuous #9 0 mL U-100 Insulin aspart) Allergy/AdvReac Type Severity Reaction Status Date / Time adhesive tape Allergy Severe Unknown Verified 08/23/25 00:35 latex Allergy Rash Verified 08/23/25 00:35 Family History Mother CAD (coronary artery disease) Hx of CABG Brother Hypertension Melanoma Father Atrial fibrillation Grandmother Lung cancer Brother Diabetes Other Cancer anesthesia allergy Surgical History History of cholecystectomy Hx of eye surgery Presence of stent in coronary artery (~01/23/14) History of coronary angioplasty (~11/08/13) H/O: H/O vitrectomy H/O breast augmentation History of tonsillectomy S/P appendectomy H/O angioplasty History of left heart catheterization Social History Smoking Status: Never smoker second hand exposure: No alcohol intake: current alcohol intake frequency: a few times a month substance use type: does not use caffeine: Yes Type: coffee Number of servings: 6 and tea Number of servings: 2 Review of Systems (Anesthesia) ROS Narrative System reviewed and no additional complaints, except as documented.
--- NOTE | 2025-08-23 12:30 | AMP_PTH ---
PATIENT: LAURA FIGUEROA LOC: [facility] U#:[id number] AGE/SX: 54/F [place] [facility] [place] [place]08/23/[address]: Dr. Devante Wren MD : [id number] BED: 1 DIS: 08/27/2025 SPEC #: [id number] RECD: 08/23/25 13:59 STATUS: REED REQ #: [id number] LIN: 08/23/25 12:[address]: Shubham Henderson DEPT: SURGICAL PATHOLOGY RECD BY: Zac Keller ENTERED: 08/23/25 14:44 SP TYPE: Amputation OTHR DR: DO Dr. Joni Tucker MD Dr. Prakash Chand, MD Tissues: A - Toe, NOS Procedures: Decalcification bone/plaque Surgery Specimen Level IV HEADER OPERATION: Amputation, toe, hallux PRE-OP DIAGNOSIS: Non-pressure chronic ulcer of other part of right foot with necrosis of bone, osteomyelitis of great toe of right foot, osteomyelitis due to type 1 diabetes mellitus TISSUE SUBMITTED: A- Right hallux MICROSCOPIC DIAGNOSIS A. Toe, right hallux, amputation: * Cutaneous ulcer, abscess, osteomyelitis. MICROSCOPIC DESCRIPTION Slides are reviewed. GROSS DESCRIPTION A. Received in formalin labeled with the patient's name and date of . Designated as right hallux is a 5.4 x 3.1 x 3.2 cm digit anteriorly surfaced by a nail. The skin is hinson and slightly wrinkled with a two ulcerative lesions on the plantar aspect (1.3 x 1.2 cm and 3.8 x 1.2 cm) and a 2.4 x 2.0 cm full-thickness, gangrenous ulcerative lesion at the distal tip, spanning to the nailbed. Sectioning reveals hinson-yellow, trabeculated medullary of bone which is soft and necrotic near the distal tip lesion. Clerical Coordinator sections are submitted in 3 cassettes, following decalcification as follows: A1: Distal tip with lesion and underlying boneA2: Bone at marginA3: Plantar ulcers IN 08/23/2025 CPT:15585,58483
--- NOTE | 2025-08-23 12:40 | CHAPLAIN ---
Type of Pastoral Visit _x__ Initial Visit ___ Follow-up Visit ___ On-call Visit ___ General Patient Visit ___ Spiritual Assessment ___ Family Conference ___ Bereavement ___ Rapid Response ___ Code Blue ___ Other (describe below) Pastoral Care Referral From _x__ Patient ___ Family ___ Nurse ___ Physician ___ Electrodynamicist ___ Web Graphic Designer ___ Other (describe below) Sacrament/Intervention _x__ Active listening ___ Anointing ___ Scientology ___ Bereavement ___ Communion ___ Terri exploration ___ ___ Life review _x__ Prayer ___ Reconciliation ___ Sacrament of Sick _x__ Supportive presence ___ Wedding ___ Other (describe below) Pastoral Comments patient had been moved to for a procedure; found patient waiting in the AC room; pt is offered support; pt admits that she is uncertain about all that is taking place; pt has family support and roman catholic connection; pt welcomes prayer before procedure is done
[2025-08-23] MEDS: 0.9% Normal Saline (1000mL) 700 ML IV (12:53)
[2025-08-23] MEDS: Midazolam 2 MG/2 ML Syringe IV (12:53)
--- NOTE | 2025-08-23 13:06 | PCM.OPRPT ---
Operative Report (Standard) Operative Information Date of Procedure: 08/23/25 Pre-Operative Diagnosis: 1. Non-pressure ulceration with necrosis of the Right Hallux Distal Phalanx 2. Osteomyelitis of the Right Hallux Distal Phalanx and Proximal Phalanx Right foot 3. DM type I with Peripheral Polyneuropathy Post-Operative Diagnosis: 1. Non-pressure ulceration with necrosis of the Right Hallux Distal Phalanx 2. Osteomyelitis of the Right Hallux Distal Phalanx and Proximal Phalanx Right foot 3. DM type I with Peripheral Polyneuropathy Surgery/Procedure Performed: 1. Right Hallux Amputation at the Metatarsophalangeal joint materials planning manager: No Type of Anesthesia: Local (10 cc one-to-one mixture 1% lidocaine plain and 0.5% Marcaine plain) and MAC RN Documented Start/Stop Times: Operation Date: 08/23/25 12:30 Case Time Into Pre-Op 08/23/25 11:29 Out of Pre-Op 08/23/25 12:50 Anesthesia Start 08/23/25 12:51 Into Room 08/23/25 12:51 Procedure Start 08/23/25 13:16 Procedure End 08/23/25 13:39 Anesthesia End 08/23/25 13:47 Out of Room 08/23/25 13:47 Into Recovery 08/23/25 13:50 Out of Recovery 08/23/25 14:42 Procedure Start Time: 13:16 Procedure Stop Time: 13:39 Select all DRAINS/GRAFTS/IMPLANTS that apply: None Estimated Blood Loss: < 3 mL Specimen collected: Yes Description of specimen(s) removed: Necrotic bone Distal Phalanx Right Hallux to micro; Swab culture purulent drainage Right Hallux; Remainder of Hallux to Pathology Description of surgery: HPI/Indication: This is a 54 F who 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 Patient's states that he was checking his 's feet last night and noticed worsening wound with what appeared to be infection and he did bring her to the ED for further evaluation. She has PMHx of DM type I with peripheral polyneuropathy on insulin pump followed by Dr. 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 She reports her symptoms began a few days prior to admission when she had trimmed her toenails accidentally causing an iatrogenic lesion to the distal tuft of the right hallux. She reports over the first few days she never had an issue with the toe however symptoms gradually worsened and the toe began to discolor and pain also worsened. did note this upon inspection of her foot and did bring her to the ED as stated above. She denies N/V/F/chills. Denies chest pain and abdominal pain. She did undergo workup in the ED with unremarkable laboratory studies and vital signs. Radiographs did demonstrate subacute healing fractures of the 3rd and 5th metatarsal bones in addition to second metatarsal base. Radiographs also did demonstrate erosive changes of the distal tuft of the hallux consistent with osteomyelitis. Physical examination of Right Hallux performed noting extensive necrosis of the distal tuft with scant purulence and exposure of bone underlying the necrotic tissue, which is black in color indicating osteomyelitis. There was also a plantar ulceration near the sulcus with significant tissue destruction. Discussed with the patient and bedside today the need for surgical intervention for removal/amputation of the right hallux. They are understanding of the need for amputation to prevent further spread of infection and more proximal amputation. They are understanding that this is not a elective procedure and this is a limb salvage procedure. Surgical procedure was discussed in detail. Typical postoperative course was explained in detail. Risks and complications were discussed in detail. Risks include but are not limited to the following: Pain, continued pain, complex regional pain syndrome, infection, bleeding, dehiscence, delayed healing/nonhealing, need for further surgical intervention, phantom pain, neuritis/numbness, swelling, scarring, poor cosmetic appearance, difficulty with ambulation, difficulty wearing shoe gear, inability to wear shoe gear, deviated digits, transfer lesions, stroke, heart attack, addiction to pain medication, clotting, loss of function, loss of limb, loss of life. Patient is understanding of these and was able to repeat these back. is also understanding of this and in agreement with the need for the surgical procedure. Patient did sign medical consent prior to procedure at own free will. Patient had been n.p.o. since last night and was given no food/drink prior to surgical intervention. Operative limb was signed prior to entering OR. Procedure: Under mild sedation patient was brought into the operating room and placed on the table in the supine position. Patient was secured to table with safety belt. Following induction of IV anesthesia a pneumatic tourniquet was placed about the patient's right ankle. The foot was then scrubbed, prepped, and draped in the usual aseptic manner. The right foot was exsanguinated and the Esmarch bandage, elevated, and the pneumatic ankle tourniquet was inflated to 250mmgH. At this time attention was directed to the Right foot where utilizing fluoroscopy the Right Hallux was marked for incision and to demonstrate osseous destruction.The digit distal tuft necrosis was debrided and purulent drainage was expressible from the most distal portion of the Hallux, this was cultured and sent to microbiology for analysis. Next, the distal phalax was visible and noted to be completely soft and black/necrotic in color consistent with aggressive acute osteomyelitis of the distal phalanx. Next, a racquet shaped incision was performed with a #15 blade. Incision wad deepened to the level of bone. The first metatarsophalangeal joint was identified and the digit was sharply disarticulated at the level of this joint utilizing a #15 blade. The digit was then passed from the operative field to the table in toto. On the table a tissue sample was obtained and sent to microbiology. Necrotic bone was also transected from the distal tuft utilizing rongeur and sent to microbiology for analysis. The remainder of the digit was sent to pathology for analysis. There was no purulent drainage or signs of infection noted proximally at the first metatarsal head during the time of the amputation. The extensor hallucis longus tendon was identified and transected as far proximal as possible. The flexor hallucis longus tendon also identified and transected as far proximal as possible. The first metatarsal head was inspected and noted to be healthy appearing. Remainder of the surrounding soft tissues was healthy in appearance. Site was then flushed with copious amounts of normal sterile saline. Final Flouroscopic imaging was obtained demonstrating amputation of the Right Hallux. Deep tissues were then closed utilizing 4-0 Vicryl. Subcutaneous tissues closed utilizing 4-0 Monocryl. Skin was reapproximated utilizing 3-0 Prolene in simple interrupted fashion. Pneumatic Ankle tourniquet was deflated and a prompt hyperemic response was noted to the remaining digits of the right foot. Incision site was then dressed with Adaptic, 4 x 4 gauze, Kerlix, 4 inch Arpit wrap rolled onto the right foot. Patient tolerated anesthesia procedure well was transported the PACU with vital signs stable and vascular status intact to the right foot. She is to continue to elevate the right lower extremity at all times of rest for postoperative edema control. She is to continue to keep dressings dry, and intact to the right foot. She is permitted to ambulate in surgical shoe for short CAM boot as tolerated. She is to take continue to follow all postoperative instructions and will continue to receive IV antibiotics while in house. I will reevaluate the amputation site for dressing change on 08/26/2025. Surgical Findings: See operative note for findings Complications Complications: No Admit VTE Documentation VTE Present on Admission: No VTE Mechan Device Prophylaxis: SCD's VTE Pharm Prophylaxis ordered?: No Reason prophylaxis not ordered: Treatment Not Indicated
[2025-08-23] MEDS: fentaNYL 100 MCG/2 ML Ampul 50 MCG IV (13:09)
--- NOTE | 2025-08-23 13:15 | RAD_ITS ---
PROCEDURE: TOE(S) MIN 2 VIEWS; O.R. FLUORO FOR C-ARM 08/23/2025 REASON FOR EXAM: AMPUTATION; MINI C-ARM TECHNIQUE: Procedure Code: RADTO; RADORFL_C_ARM Modality: DX Procedure: TOE(S) MIN 2 VIEWS; O.R. FLUORO FOR C-ARM Laterality: Right. Fluoroscopy time: 3 seconds. Dose: 0.0203 mGy. COMPARISON: Right foot study 08/23/2025. RAD/Toe(s) Min 2 Views IMPRESSION: Intraoperative fluoroscopy was performed for amputation of the right 1st toe, a t the metatarsophalangeal joint.. 2 fluoroscopic images were also obtained. Reading Location: [id number]
--- NOTE | 2025-08-23 13:15 | RAD_ITS ---
PROCEDURE: TOE(S) MIN 2 VIEWS; O.R. FLUORO FOR C-ARM 08/23/2025 REASON FOR EXAM: AMPUTATION; MINI C-ARM TECHNIQUE: Procedure Code: RADTO; SEBASTIÁNORFL_C_ARM Modality: DX Procedure: TOE(S) MIN 2 VIEWS; O.R. FLUORO FOR C-ARM Laterality: Right. Fluoroscopy time: 3 seconds. Dose: 0.0203 mGy. COMPARISON: Right foot study 08/23/2025. RAD/O.R. Fluoro for C-Arm IMPRESSION: Intraoperative fluoroscopy was performed for amputation of the right 1st toe, a t the metatarsophalangeal joint.. 2 fluoroscopic images were also obtained. Reading Location: [id number]
[2025-08-23] MEDS: Lidocaine 1% (30 ml sdv) 30 ML Vial (13:33)
--- NOTE | 2025-08-23 13:50 | PCM.POST.ANE ---
Anesthesia: Postop Eval I Current Vital Signs Temperature: 97 F Pulse Rate: 81 Blood Pressure: 105/54 Respiratory Rate: 16 Pulse Ox: 92 Oxygen Delivery Method: Room Air Assessment Airway patent: Yes Spontaneous unlabored respirations: Yes Mental status: Awake and Calm nausea: No Vomiting: No Anesthesia Complication: No Fluid Hydration Crystalloid volume administer (ml): 700 Total IV fluid infused: 700 Progress Note Anesthesia document: Postop Eval 1 completed: Yes
--- NOTE | 2025-08-23 15:46 | PCM.POSTANE2 ---
Anesthesia Postop Eval I Sum Postop Eval Completion status Anesthesia document: Postop Eval 1 completed: Yes Anesthesia Postop Eval I Summary Anesthesia Postop Eval I Summary: Anesthesia Postop Eval I: Assessment Summary Airway patent Yes 08/23/25 13:51 [email or web address] Spontaneous unlabored Yes 08/23/25 13:51 [email or web address] respirations Mental status Awake,Calm 08/23/25 13:51 [email or web address] nausea No 08/23/25 13:51 CRANE [email or web address] Vomiting No 08/23/25 13:51 [email or web address] Anesthesia Postop Eval I: Fluid Summary Crystalloid volume administer 700 08/23/25 13:51 CRANE [email or web address] (ml) Colloids volume administered ( ml) Blood Product volume administered (ml) Total IV fluid infused 700 08/23/25 13:51 CRANE [email or web address] Anesthesia Postop Eval I: Summary Notes Anesthesia Complication No 08/23/25 13:51 CRANE 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
--- NOTE | 2025-08-23 15:46 | POSTOPAN2_ITS ---
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 Anesthesia Postop Eval I: Fluid Summary Crystalloid volume administer 700 08/23/25 13:51 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
[2025-08-23] MEDS: 0.9% Saline Lock 10 ML Syringe IV (22:36)
[2025-08-23] MEDS: Senna/Docusate Sodium 1 Tablet 2 TABLET PO (22:36)
[2025-08-24 02:10] VITALS: BP 109/57; PULSE 70; RESP 16; TEMP 36.6; O2SAT 97
[2025-08-24] MEDS: Vancomycin HCl 1,250 MG in 0.9% Normal Saline (250mL Bag) 250 ML 167 MG IV (02:26)
[2025-08-24] MEDS: Piperacil/Tazobactam 3.375 GM in 0.9% Normal Saline (50mL MB+) 50 ML IV ×3 (05:47→22:16)
[2025-08-24 06:10] LABS: Hematocrit 34.4 % (37-47); Hemoglobin 11.4 g/dL (12.0-15.0); Immature Granulocytes Count 0.060 X10^3/uL (0.0-0.0); Mean Corp Hgb Conc 33.1 g/dL (32-36); Mean Corpuscular Volume 87.5 fL (81-99); Mean Platelet Vol. 10.6 fl (6.2-12.0); NRBC Flagged by Analyzer 0 % (0-5); Platelet Count 343 K/mm3 (150-450); RBC Distribution Width CV 13.1 % (11.6-14.6); RBC Distribution Width SD 42.5 fl (35.1-43.9); Red Blood Count 3.93 M/mm3 (4.2-5.4); White Blood Count 6.7 K/mm3 (4.4-11.0)
[2025-08-24 07:04] LABS: Anion Gap 13 (5-15); BUN 41 mg/dL (4-19); BUN/Creat Ratio 21.8 RATIO (10-20); Calcium,Total 8.9 mg/dL (7.6-11.0); Carbon Dioxide 17.4 mmol/L (21.0-32.0); Chloride 106 mmol/L (98-108); Estimated Creatinine Clearance 39.93 ml/min (50-250); Glucose 207 mg/dL (70-99); Potassium 4.6 mmol/L (3.3-5.1)
[2025-08-24] MEDS: Senna/Docusate Sodium 1 Tablet 2 TABLET PO ×2 (10:14→22:14)
[2025-08-24] MEDS: APIXABAN 2.5 MG TABLET (WCH) PO ×2 (10:14→22:14)
[2025-08-24] MEDS: Zinc Sulfate 50 mg zinc (220 mg) ORAL capsule PO (10:14)
[2025-08-24] MEDS: Magnesium Chloride 64 MG Delay Rel.Tablet 128 MG PO (10:14)
[2025-08-24] MEDS: Cholecalciferol (VIT D3) 25 MCG TABLET (1,000 UNITS) 50 MCG PO (10:14)
[2025-08-24] MEDS: Lactobacillis Acidophilus 1 CAP PO ×4 (10:14→22:14)
[2025-08-24 10:31] VITALS: BP 124/63; PULSE 66; RESP 16; TEMP 36.6; O2SAT 97
--- NOTE | 2025-08-24 13:02 | PCM.PN.HOSP ---
Reason for Visit Chief Complaint: Worsening Right Foot Wound and Pain. Objective Data Objective Data Vital Signs: Vital Signs Temp Pulse Resp BP Pulse Ox O2 Del Method 98 F 66 16 124/63 H 97 Room Air 08/24/25 10:31 08/24/25 10:31 08/24/25 10:31 08/24/25 10:31 08/24/25 10:31 08/24/25 10:31 Oxygen Delivery Method Room Air Weight: 193 lb 6 oz Body Mass Index (BMI) 28.5 Intake & Output: Intake and Output for Last 24 Hours 08/22/25 08/23/25 08/24/25 23:59 23:59 23:59 Intake Total 424.75 / 424.75 615 / 615 Output Total Balance 414.75 / 414.75 615 / 615 Lab / Micro Data 08/24/25 05:37 08/24/25 05:37 Labs: Laboratory Results - last 24 hr 08/23/25 22:42: POC Glucose 335 H 08/24/25 05:37: WBC 6.7, RBC 3.93 L, Hgb 11.4 L, Hct 34.4 L, MCV 87.5, MCH 29.0, MCHC 33.1, RDW Std Deviation 42.5, RDW Coeff of Lucero 13.1, Plt Count 343, MPV 10.6, Immature Gran % (Auto) 0.900, Neut % (Auto) 68.3, Lymph % (Auto) 16.5 L, [place] % (Auto) 10.3 H, Eos % (Auto) 2.8, Baso % (Auto) 1.2 H, Absolute Neuts (auto) 4.6, Absolute Lymphs (auto) 1.11, Nucleated RBC % 0, Sodium 137, Potassium 4.6, Chloride 106, Carbon Dioxide 17.4 L, Anion Gap 13, BUN 41 H, Creatinine 1.88 H, Estim Creat Clear Calc 39.93 L, Est GFR (MDRD) Non-Af 31 L, BUN/Creatinine Ratio 21.8 H, Glucose 207 H, Calcium 8.9 08/24/25 05:38: POC Glucose 181 H Micro: Microbiology 08/23/25 14:32 Bone - Great Toe Gram Stain - Final 08/23/25 14:32 Bone - Great Toe Wound Culture - Preliminary Mixed Gram Positive Organisms 08/23/25 14:32 Tissue - Aerobic & Anaerobic Swabs Gram Stain - Final 08/23/25 14:32 Tissue - Aerobic & Anaerobic Swabs Wound Culture - Preliminary Mixed Gram Positive Organisms 08/23/25 14:32 Tissue - Great Toe Gram Stain - Final 08/23/25 14:32 Tissue - Great Toe Wound Culture - Preliminary Mixed Gram Positive Organisms Radiography Diagnostic Testing: Radiology Impression C-Arm Fluoroscopy 08/23/25 13:15 IMPRESSION: Intraoperative fluoroscopy was performed for amputation of the right 1st toe, at the metatarsophalangeal joint.. 2 fluoroscopic images were also obtained. Reading Location: [id number] Toe X-Ray 08/23/25 13:15 IMPRESSION: Intraoperative fluoroscopy was performed for amputation of the right 1st toe, at the metatarsophalangeal joint.. 2 fluoroscopic images were also obtained. Reading Location: [address] Physical Exam Narrative Seen and examined in afternoon after the surgery. Patient had right great toe amputation in the morning. She had mild nausea but has resolved. Doing well. Heart rate and blood pressure are in acceptable range. Talked to the patient's at the bedside. Physical exam General: Alert, Oriented x3, Cooperative HEENT: Atraumatic, PERRLA, EOMI, Normocephalic. Patient is legally blind. No perception of light/head movement. Oral: No Gingival or Mucosal Lesions/ Ulcerations Neck: Supple, No JVD, Negative Carotid Bruits Chest wall/Lungs: Air entry diminished in bilateral lung bases. No crepitation/rhonchi Cardiovascular: Regular rate and rhythm, Normal S1,S2, No M/G/R Abdomen: Bowel Sounds Present, Soft, Non Tender, Non-Distended : No dysuria. No renal angle tenderness. No suprapubic tenderness. Extremities: No edema, Capillary Refill Less than 3 Seconds Skin: Right great toe amputation, covered with dressing and Arpit wrap bandage. No active bleeding. Musculoskeletal: No Tenderness to Palpation of Joints or Extremities Neurological: Cranial nerves II-XII grossly intact, DTR 2+/4. Left great toe position sense is normal. Psych/Mental Status: Normal Affect, Appropriate. Assessment & Plan Assessment/Plan (1) Osteomyelitis due to type 1 diabetes mellitus: (2) Metatarsal bone fracture: QUALIFIERS: Encounter type: initial encounter Metatarsal bone: fourth Fracture type: closed Fracture alignment: nondisplaced Laterality: right Qualified Code(s): S92.344A - Nondisplaced fracture of fourth metatarsal bone, right foot, initial encounter for closed fracture (3) Diabetes mellitus type 1: QUALIFIERS: Diabetes mellitus complication status: with hyperglycemia Qualified Code(s): E10.65 - Type 1 diabetes mellitus with hyperglycemia (4) Presence of insulin pump: (5) Presence of stent in coronary artery: (6) Overweight (BMI 25.0-29.9): (7) Stage 4 chronic kidney disease: PLAN: Plan 54-year-old female with history of type 1 diabetes mellitus on insulin alcohol and CKD came to ED after 1 week of trip and fall right ankle. She clipped her nails temporarily injured a small piece of skin and then started having swelling and redness necrosis and drainage with foul smell of great toe. 1. Acute osteomyelitis of great toe of right side complicated with type 1 diabetes mellitus and nonpressure chronic ulcer of right foot: Patient is being admitted on [facility] floor. X-rays of right foot soft tissue edema and swelling with fragmentation/erosive changes of the tip of the distal phalanx of the big toe suspicious for Osteomyelitis with subacute healing fractures in the 3rd and 5th metatarsal bones. Ununited fracture of the base of the second metatarsal bone with moderate osteopenia. X-ray of right ankle showed soft tissue edema and swelling over medial and lateral malleoli with detached bone fragment reduced to base of 4th and 5th metatarsal bone raising possibility of acute fracture. Mixer Crane Operator was consulted. Diagnosis of acute osteomyelitis therefore taken for or underwent right great toe amputation. Operative report pending. Pain controlled. On IV antibiotics vancomycin and Zosyn. Operative tissue culture was sent. Blood culture pending. 2. DM-1; complicated with diabetic retinopathy: Well-controlled on insulin pump with suspicion of diabetic neuropathy, diabetic retinopathy with legal blindness- Continue insulin pump for now with patient previously demonstrating excellent ability to manage her blood glucose. Though on exam of foot no acute diminished sensation was found. Patient does not have perception of light or ray. 3. CAD; s/p STEMI with subsequent mid-RCA stent with angioplasty to LAD and proximal PDA at [facility] (~2013) on baby aspirin, clopidogrel and as needed SL NTG compounding #1 & #2 - Hold baby aspirin and clopidogrel with likely need for surgical intervention from podiatry. Give SL NTG as needed for anginal type chest pain. 4. Overweight; BMI of 29.4 KG per square meter: This admission adding to the burden of disease - Weight loss was recommended. Check TSH. This complicates her case and may hamper recovery. 5. CKD; stage IV; on dapagliflozin for renal protection followed by Dr. Hermosillo - Stable with serum creatinine of 2.12 mg/dL and BUN of 35 mg/dL with eGFR of 27 mL/min which is close to her baseline level. We will hold dapagliflozin until need for surgery is clarified. 08/24: Creatinine improving continue holding oral medications including dapagliflozin 6. Essential hypertension; on ramipril and carvedilol twice daily - Continue present therapy plus give prn IV hydralazine for systolic blood pressure > 160 mmHg. 7. 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 8 history of mild concentric LVH; stage I diastolic dysfunction and normal LVEF ~65% (on last echo done here 05/2022) - Noted. Check new echocardiogram to evaluate LVEF with likely impending surgery and complicated medical history. Multiple comorbidities which include rheumatoid arthritis chronic, chronically stable asthma and history of left middle finger amputation DVT prophylaxis - SCD's only with likely impending surgical intervention. Charges/Coding Visit Charges Inpatient E&M: 79976 Subs Hosp L2
[2025-08-24 15:44] VITALS: BP 139/66; PULSE 71; RESP 16; TEMP 36.6; O2SAT 97
[2025-08-24 22:04] VITALS: BP 139/66; PULSE 78; RESP 18; TEMP 36.8; O2SAT 94
[2025-08-25 01:52] LABS: Hematocrit 35.1 % (37-47); Hemoglobin 11.4 g/dL (12.0-15.0); Immature Granulocytes Count 0.050 X10^3/uL (0.0-0.0); Mean Corp Hgb Conc 32.5 g/dL (32-36); Mean Corpuscular Volume 88.9 fL (81-99); Mean Platelet Vol. 10.5 fl (6.2-12.0); NRBC Flagged by Analyzer 0 % (0-5); Platelet Count 354 K/mm3 (150-450); RBC Distribution Width CV 13.0 % (11.6-14.6); RBC Distribution Width SD 42.5 fl (35.1-43.9); Red Blood Count 3.95 M/mm3 (4.2-5.4); White Blood Count 9.4 K/mm3 (4.4-11.0)
[2025-08-25 02:09] LABS: Anion Gap 13 (5-15); BUN 48 mg/dL (4-19); BUN/Creat Ratio 26.1 RATIO (10-20); Calcium,Total 9.1 mg/dL (7.6-11.0); Carbon Dioxide 18.6 mmol/L (21.0-32.0); Chloride 105 mmol/L (98-108); Estimated Creatinine Clearance 41.24 ml/min (50-250); Glucose 156 mg/dL (70-99); Potassium 4.5 mmol/L (3.3-5.1)
[2025-08-25 02:53] LABS: Vancomycin, Trough Level 14.2 ug/mL (5.0-15.0)
[2025-08-25 03:10] VITALS: BP 128/61; PULSE 66; RESP 14; TEMP 37.1; O2SAT 96
--- NOTE | 2025-08-25 03:10 | PCM.RX.CS ---
Consult Antibiotic Management Pharmacy has been consulted to manage selected antibiotic: Vancomycin Type of Intervention Type of Consult: Follow-up Suspected Infection Suspected Infection: Osteomyelitis Labs Labs: Sodium 137 mmol/L (133-145) 08/25/25 01:40 Potassium 4.5 mmol/L (3.3-5.1) 08/25/25 01:40 Chloride 105 mmol/L (98-108) 08/25/25 01:40 Carbon Dioxide 18.6 mmol/L (21.0-32.0) L 08/25/25 01:40 Anion Gap 13 (5-15) 08/25/25 01:40 BUN 48 mg/dL (4-19) H 08/25/25 01:40 Creatinine 1.82 mg/dL (0.70-1.20) H 08/25/25 01:40 Est GFR (MDRD) Non-Af 32 (>60) L 08/25/25 01:40 BUN/Creatinine Ratio 26.1 RATIO (10-20) H 08/25/25 01:40 Glucose 156 mg/dL (70-99) H 08/25/25 01:40 Vancomycin Trough 14.2 ug/mL (5.0-15.0) 08/25/25 01:40 Microbiology Microbiology: Microbiology 08/23/25 14:32 Bone - Great Toe Gram Stain - Final 08/23/25 14:32 Bone - Great Toe Wound Culture - Preliminary Mixed Gram Positive Organisms 08/23/25 14:32 Tissue - Aerobic & Anaerobic Swabs Gram Stain - Final 08/23/25 14:32 Tissue - Aerobic & Anaerobic Swabs Wound Culture - Preliminary Mixed Gram Positive Organisms 08/23/25 14:32 Tissue - Great Toe Gram Stain - Final 08/23/25 14:32 Tissue - Great Toe Wound Culture - Preliminary Mixed Gram Positive Organisms Dosing Weight Weight used for dosin.7 kg Estimated Creatinine Clearance Estimated Creatinine Clearance: 41 Goal Trough Goal Trough: 15-20 mcg/mL Pharmacy Plan for Drug Dosing Pharmacy Plan for Drug Dosing: Vancomycin trough level of 14.2, drawn 11.25hrs post-dose, was below the target range of 15-20. Will increase dose to 1500mg q24h, and will draw another trough prior to third dose of the new regimen. Pharmacy Service will continue to monitor and adjust dosing as required. Follow-Up Labs Follow-Up Labs: Trough: Vancomycin Date/Time Labs Ordered Labs to be done on [date and time ordered]: 08/27/25 @0231
[2025-08-25] MEDS: Vancomycin HCl 1,500 MG in 0.9% Normal Saline (500mL Bag) 500 ML 250 MG IV (03:14)
[2025-08-25] MEDS: Piperacil/Tazobactam 3.375 GM in 0.9% Normal Saline (50mL MB+) 50 ML IV ×3 (06:08→21:53)
[2025-08-25 09:40] VITALS: BP 120/60; PULSE 65; RESP 16; TEMP 36.7; O2SAT 97
[2025-08-25] MEDS: Zinc Sulfate 50 mg zinc (220 mg) ORAL capsule PO (09:44)
[2025-08-25] MEDS: Lactobacillis Acidophilus 1 CAP PO ×4 (09:44→21:52)
[2025-08-25] MEDS: Magnesium Chloride 64 MG Delay Rel.Tablet 128 MG PO (09:44)
[2025-08-25] MEDS: APIXABAN 2.5 MG TABLET (WCH) PO ×2 (09:45→21:52)
[2025-08-25] MEDS: Senna/Docusate Sodium 1 Tablet 2 TABLET PO ×2 (09:45→21:52)
[2025-08-25] MEDS: Cholecalciferol (VIT D3) 25 MCG TABLET (1,000 UNITS) 50 MCG PO (09:45)
--- NOTE | 2025-08-25 11:09 | PCM.PN.HOSP ---
Reason for Visit Chief Complaint: Worsening Right Foot Wound and Pain. Objective Data Objective Data Vital Signs: Vital Signs Temp Pulse Resp BP Pulse Ox O2 Del Method 98.1 F 65 16 120/60 97 Room Air 08/25/25 09:40 08/25/25 09:40 08/25/25 09:40 08/25/25 09:40 08/25/25 09:40 08/25/25 09:40 Oxygen Delivery Method Room Air Weight: 193 lb 6 oz Body Mass Index (BMI) 28.5 Intake & Output: Intake and Output for Last 24 Hours 08/23/25 08/24/25 08/25/25 23:59 23:59 23:59 Intake Total 424.75 / 424.75 949.5 / 949.5 580 / 580 Output Total Balance 414.75 / 414.75 949.5 / 949.5 580 / 580 Lab / Micro Data 08/25/25 01:40 08/25/25 01:40 Labs: Laboratory Results - last 24 hr 08/25/25 01:40: WBC 9.4, RBC 3.95 L, Hgb 11.4 L, Hct 35.1 L, MCV 88.9, MCH 28.9, MCHC 32.5, RDW Std Deviation 42.5, RDW Coeff of Lucero 13.0, Plt Count 354, MPV 10.5, Immature Gran % (Auto) 0.500, Neut % (Auto) 69.4, Lymph % (Auto) 16.6 L, [place] % (Auto) 9.3, Eos % (Auto) 3.4, Baso % (Auto) 0.8, Absolute Neuts (auto) 6.5, Absolute Lymphs (auto) 1.57, Nucleated RBC % 0, Sodium 137, Potassium 4.5, Chloride 105, Carbon Dioxide 18.6 L, Anion Gap 13, BUN 48 H, Creatinine 1.82 H, Estim Creat Clear Calc 41.24 L, Est GFR (MDRD) Non-Af 32 L, BUN/Creatinine Ratio 26.1 H, Glucose 156 H, Calcium 9.1, Vancomycin Trough 14.2 Micro: Microbiology 08/23/25 14:32 Bone - Great Toe Gram Stain - Final 08/23/25 14:32 Bone - Great Toe Wound Culture - Preliminary Mixed Gram Positive Organisms 08/23/25 14:32 Bone - Great Toe Anaerobic Culture - Preliminary 08/23/25 14:32 Tissue - Great Toe Gram Stain - Final 08/23/25 14:32 Tissue - Great Toe Wound Culture - Preliminary Mixed Gram Positive Organisms 08/23/25 14:32 Tissue - Great Toe Anaerobic Culture - Preliminary 08/23/25 14:32 Tissue - Aerobic & Anaerobic Swabs Gram Stain - Final 08/23/25 14:32 Tissue - Aerobic & Anaerobic Swabs Wound Culture - Preliminary Mixed Gram Positive Organisms 08/23/25 14:32 Tissue - Aerobic & Anaerobic Swabs Anaerobic Culture - Preliminary Physical Exam Narrative Seen and examined in afternoon after the surgery. Patient had right great toe amputation in the morning. Heart rate and blood pressure are in acceptable range. No acute issues. Did not move bowel after surgery Physical exam General: Alert, Oriented x3, Cooperative HEENT: Atraumatic, PERRLA, EOMI, Normocephalic. Patient is legally blind. Left eye corneal opacity. Right eye corneal transplant no perception of light/head movement. Oral: No Gingival or Mucosal Lesions/ Ulcerations Neck: Supple, No JVD, Negative Carotid Bruits Chest wall/Lungs: Air entry diminished in bilateral lung bases. No crepitation/rhonchi Cardiovascular: Regular rate and rhythm, Normal S1,S2, No M/G/R Abdomen: Bowel Sounds Present, Soft, Non Tender, Non-Distended : No dysuria. No renal angle tenderness. No suprapubic tenderness. Extremities: No edema, Capillary Refill Less than 3 Seconds Skin: Right great toe amputation, covered with dressing and Arpit wrap bandage. No active bleeding or drainage. Musculoskeletal: No Tenderness to Palpation of Joints or Extremities Neurological: Cranial nerves II-XII grossly intact, DTR 2+/4. Left great toe position sense is normal. Psych/Mental Status: Normal Affect, Appropriate. Assessment & Plan Assessment/Plan (1) Osteomyelitis due to type 1 diabetes mellitus: (2) Metatarsal bone fracture: QUALIFIERS: Encounter type: initial encounter Metatarsal bone: fourth Fracture type: closed Fracture alignment: nondisplaced Laterality: right Qualified Code(s): S92.344A - Nondisplaced fracture of fourth metatarsal bone, right foot, initial encounter for closed fracture (3) Diabetes mellitus type 1: QUALIFIERS: Diabetes mellitus complication status: with hyperglycemia Qualified Code(s): E10.65 - Type 1 diabetes mellitus with hyperglycemia (4) Presence of insulin pump: (5) Presence of stent in coronary artery: (6) Overweight (BMI 25.0-29.9): (7) Stage 4 chronic kidney disease: PLAN: Plan 54-year-old female with history of type 1 diabetes mellitus on insulin alcohol and CKD came to ED after 1 week of trip and fall right ankle. She clipped her nails temporarily injured a small piece of skin and then started having swelling and redness necrosis and drainage with foul smell of great toe. 1. Acute osteomyelitis of great toe of right side complicated with type 1 diabetes mellitus and nonpressure chronic ulcer of right foot: Patient is being admitted on [facility] floor. X-rays of right foot soft tissue edema and swelling with fragmentation/erosive changes of the tip of the distal phalanx of the big toe suspicious for Osteomyelitis with subacute healing fractures in the 3rd and 5th metatarsal bones. Ununited fracture of the base of the second metatarsal bone with moderate osteopenia. X-ray of right ankle showed soft tissue edema and swelling over medial and lateral malleoli with detached bone fragment reduced to base of 4th and 5th metatarsal bone raising possibility of acute fracture. Almond Blancher was consulted. Diagnosis of acute osteomyelitis therefore taken for or underwent right great toe amputation. Operative report pending. Pain controlled. On IV antibiotics vancomycin and Zosyn. Operative tissue culture was sent. Blood culture pending. 08/25: Prelim tissue culture shows gram-positive organism. Continue broad-spectrum antibiotic. ID consult requested for tomorrow 2. DM-1; complicated with diabetic retinopathy: Well-controlled on insulin pump with suspicion of diabetic neuropathy, diabetic retinopathy with legal blindness- Continue insulin pump for now with patient previously demonstrating excellent ability to manage her blood glucose. Though on exam of foot no acute diminished sensation was found. Patient does not have perception of light or ray. 08/25: Glucose 156, relatively well, normal. On insulin pump 0.9 units/h with 1 unit bolus per 5 carbs 3. CAD; s/p STEMI with subsequent mid-RCA stent with angioplasty to LAD and proximal PDA at [facility] (~2013) on baby aspirin, clopidogrel and as needed SL NTG compounding #1 & #2 - Hold baby aspirin and clopidogrel with likely need for surgical intervention from podiatry. Give SL NTG as needed for anginal type chest pain. 4. Overweight; BMI of 29.4 KG per square meter: This admission adding to the burden of disease - Weight loss was recommended. Check TSH. This complicates her case and may hamper recovery. 5. CKD; stage IV; on dapagliflozin for renal protection followed by Dr. Hermosillo - Stable with serum creatinine of 2.12 mg/dL and BUN of 35 mg/dL with eGFR of 27 mL/min which is close to her baseline level. We will hold dapagliflozin until need for surgery is clarified. 08/24: Creatinine improving continue holding oral medications including dapagliflozin 08/25: Creatinine 1.82 gradual mild improvement. 6. Essential hypertension; on ramipril and carvedilol twice daily - Continue present therapy plus give prn IV hydralazine for systolic blood pressure > 160 mmHg. 7. 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 8 history of mild concentric LVH; stage I diastolic dysfunction and normal LVEF ~65% (on last echo done here 05/2022) - Noted. Check new echocardiogram to evaluate LVEF with likely impending surgery and complicated medical history. Multiple comorbidities which include rheumatoid arthritis chronic, chronically stable asthma and history of left middle finger amputation DVT prophylaxis - SCD's only with likely impending surgical intervention. Microbiology Past 72 Hours 08/23/25 14:32 Bone - Great Toe Gram Stain - Final 08/23/25 14:32 Bone - Great Toe Wound Culture - Preliminary Mixed Gram Positive Organisms 08/23/25 14:32 Bone - Great Toe Anaerobic Culture - Preliminary 08/23/25 14:32 Tissue - Great Toe Gram Stain - Final 08/23/25 14:32 Tissue - Great Toe Wound Culture - Preliminary Mixed Gram Positive Organisms 08/23/25 14:32 Tissue - Great Toe Anaerobic Culture - Preliminary 08/23/25 14:32 Tissue - Aerobic & Anaerobic Swabs Gram Stain - Final 08/23/25 14:32 Tissue - Aerobic & Anaerobic Swabs Wound Culture - Preliminary Mixed Gram Positive Organisms 08/23/25 14:32 Tissue - Aerobic & Anaerobic Swabs Anaerobic Culture - Preliminary Laboratory Results 08/25/25 01:40: WBC 9.4, RBC 3.95 L, Hgb 11.4 L, Hct 35.1 L, MCV 88.9, MCH 28.9, MCHC 32.5, RDW Std Deviation 42.5, RDW Coeff of Lucero 13.0, Plt Count 354, MPV 10.5, Immature Gran % (Auto) 0.500, Neut % (Auto) 69.4, Lymph % (Auto) 16.6 L, [place] % (Auto) 9.3, Eos % (Auto) 3.4, Baso % (Auto) 0.8, Absolute Neuts (auto) 6.5, Absolute Lymphs (auto) 1.57, Nucleated RBC % 0, Sodium 137, Potassium 4.5, Chloride 105, Carbon Dioxide 18.6 L, Anion Gap 13, BUN 48 H, Creatinine 1.82 H, Estim Creat Clear Calc 41.24 L, Est GFR (MDRD) Non-Af 32 L, BUN/Creatinine Ratio 26.1 H, Glucose 156 H, Calcium 9.1, Vancomycin Trough 14.2 Charges/Coding Visit Charges Inpatient E&M: 36788 Subs Hosp L2
[2025-08-25 15:40] VITALS: BP 104/54; PULSE 73; RESP 16; TEMP 36.7; O2SAT 98
[2025-08-25] MEDS: 0.9% Normal Saline (250mL Bag) 250 ML 15 ML IV (18:36)
[2025-08-25 21:48] VITALS: BP 134/62; PULSE 72; RESP 16; TEMP 37.1; O2SAT 97
[2025-08-25] MEDS: 0.9% Saline Lock 10 ML Syringe IV (21:53)
[2025-08-26 02:48] VITALS: BP 137/67; PULSE 72; RESP 16; TEMP 36.9; O2SAT 97
[2025-08-26] MEDS: Vancomycin HCl 1,500 MG in 0.9% Normal Saline (500mL Bag) 500 ML 250 MG IV (02:57)
[2025-08-26] MEDS: 0.9% Saline Lock 10 ML Syringe IV ×2 (02:57→14:33)
[2025-08-26 05:43] LABS: Hematocrit 35.8 % (37-47); Hemoglobin 11.4 g/dL (12.0-15.0); Immature Granulocytes Count 0.050 X10^3/uL (0.0-0.0); Mean Corp Hgb Conc 31.8 g/dL (32-36); Mean Corpuscular Volume 90.2 fL (81-99); Mean Platelet Vol. 10.6 fl (6.2-12.0); NRBC Flagged by Analyzer 0 % (0-5); Platelet Count 383 K/mm3 (150-450); RBC Distribution Width CV 13.1 % (11.6-14.6); RBC Distribution Width SD 43.5 fl (35.1-43.9); Red Blood Count 3.97 M/mm3 (4.2-5.4); White Blood Count 8.1 K/mm3 (4.4-11.0)
[2025-08-26] MEDS: Piperacil/Tazobactam 3.375 GM in 0.9% Normal Saline (50mL MB+) 50 ML IV ×2 (06:01→14:34)
[2025-08-26 06:06] LABS: Anion Gap 12 (5-15); BUN 49 mg/dL (4-19); BUN/Creat Ratio 27.2 RATIO (10-20); Calcium,Total 9.3 mg/dL (7.6-11.0); Carbon Dioxide 17.9 mmol/L (21.0-32.0); Chloride 109 mmol/L (98-108); Estimated Creatinine Clearance 41.70 ml/min (50-250); Glucose 125 mg/dL (70-99); Potassium 4.6 mmol/L (3.3-5.1)
[2025-08-26 08:30] VITALS: BP 123/65; PULSE 69; RESP 16; TEMP 37; O2SAT 97
[2025-08-26] MEDS: Magnesium Chloride 64 MG Delay Rel.Tablet 128 MG PO (09:43)
[2025-08-26] MEDS: APIXABAN 2.5 MG TABLET (WCH) PO ×2 (09:43→21:10)
[2025-08-26] MEDS: Cholecalciferol (VIT D3) 25 MCG TABLET (1,000 UNITS) 50 MCG PO (09:44)
[2025-08-26] MEDS: Senna/Docusate Sodium 1 Tablet 2 TABLET PO (09:44)
[2025-08-26] MEDS: Lactobacillis Acidophilus 1 CAP PO ×4 (09:44→21:10)
[2025-08-26] MEDS: Zinc Sulfate 50 mg zinc (220 mg) ORAL capsule PO (09:44)
--- NOTE | 2025-08-26 14:40 | PCM.CONS.GEN ---
Assessment & Plan Assessment/Plan (1) Osteomyelitis of great toe of right foot: PLAN: Now s/p OR 08/23/[address] Henderson for R 1st toe amputation. Path pending. Surg cx with MSSA and strep x2 so far. On vanc/zosyn. Will narrow to vanc/unasyn. Plan on po abx at discharge. Will follow, thank you (2) Chronic kidney disease: (3) Diabetes mellitus type 1: QUALIFIERS: Diabetes mellitus complication status: with hyperglycemia Qualified Code(s): E10.65 - Type 1 diabetes mellitus with hyperglycemia HPI Consult Data Date of Consult: 08/26/25 HPI Narrative Reason for Consultation: osteomyelitis HPI Narrative: LAURA FIGUEROA, is a 54 F with T1DM with retinopathy, denies any neuropathy. Presented 08/23 with several days R 1st toe discoloration, swelling, drainage, pain. Cut her toe while trimming toenails originally. No fever or chills. Toe worsened, came to ED, admitted on vanc/zosyn, taken to OR 08/[address] Henderson for amputation. Feeling better today, at bedside. Full ROS performed and neg except as noted above. 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 Pericarditis ST elevation myocardial infarction (STEMI) of anterior wall Anxiety Rash Hives Asthma Rheumatoid arthritis Hypothyroidism Blindness Diabetic retinopathy Home Medications ?Medication ?Instructions ?Recorded ?Last Taken ?Type cholecalciferol (vitamin D3) 50 50 mcg PO DAILY 10/31/20 Unknown History mcg (2,000 unit) capsule ascorbic acid (vitamin C) 1,000 mg 1 g PO DAILY 04/16/21 Unknown History tablet Novopen Echo (insulin admin #1 ea 05/01/21 Unknown Rx supplies) pen needle, diabetic 32 gauge x #50 ea 05/01/21 Unknown History aspirin 81 mg tablet,delayed 81 mg PO DAILY 03/08/22 Unknown History release (Adult Low Dose Aspirin) magnesium oxide 400 mg PO DAILY 01/17/23 Unknown History nitroglycerin 0.4 mg sublingual 0.4 mg sublingual Q5M PRN chest 01/17/23 Unknown Rx tablet pain #25 tabs dapagliflozin propanediol 10 mg 10 mg PO DAILY kidney 07/05/23 Unknown History tablet (Farxiga) carvedilol 6.25 mg tablet 3.125 mg PO BID Needs SCRIPTTALK 11/15/23 Unknown History LABELS: pt is blind ramipril 5 mg capsule 10 mg PO QDAY 02/28/24 Unknown History levothyroxine 125 mcg tablet 125 mcg PO .6 days per week 08/01/25 Unknown History clopidogrel 75 mg tablet 75 mg PO DAILY NEEDS SCRIPTTALK 08/07/25 Unknown Rx LABELS: patient is blind #90 tabs insulin aspart U-100 100 unit/mL 100 unit continuous subcutaneous 08/12/25 Unknown Rx subcutaneous solution (Novolog infusion .continuous #90 mL U-100 Insulin aspart) Allergy/AdvReac Type Severity Reaction Status Date / Time adhesive tape Allergy Severe Unknown Verified 08/23/25 00:35 latex Allergy Rash Verified 08/23/25 00:35 Family History Mother CAD (coronary artery disease) Hx of CABG Brother Hypertension Melanoma Father Atrial fibrillation Grandmother Lung cancer Brother Diabetes Other Cancer anesthesia allergy Surgical History History of cholecystectomy Hx of eye surgery Presence of stent in coronary artery (~01/23/14) History of coronary angioplasty (~11/08/13) H/O: H/O vitrectomy H/O breast augmentation History of tonsillectomy S/P appendectomy H/O angioplasty History of left heart catheterization Social History Smoking Status: Never smoker second hand exposure: No alcohol intake: current alcohol intake frequency: a few times a month substance use type: does not use caffeine: Yes Type: coffee Number of servings: 6 and tea Number of servings: 2 Physical Exam Const alert, oriented x3 and no apparent distress General Appearance: cooperative HEENT normocephalic and head/scalp atraumatic Eyes Eyes Narrative: legally blind Neck supple and No nodes Resp normal air movement and clear to auscultation bilaterally Cardio regular rate and regular rhythm Heart Sounds: murmur GI soft to palpation, non-tender and non-distended Extremity General Extremity: Negative for edema Skin Skin Narrative: reviewed wound photo. R foot wrapped Neuro CN's II-XII intact bilaterally Lab / Micro Data Attestation: I reviewed the patient's lab results. 08/26/25 05:20 08/26/25 05:20 Labs: Laboratory Results - last 24 hr 08/26/25 05:20: WBC 8.1, RBC 3.97 L, Hgb 11.4 L, Hct 35.8 L, MCV 90.2, MCH 28.7, MCHC 31.8 L, RDW Std Deviation 43.5, RDW Coeff of Lucero 13.1, Plt Count 383, MPV 10.6, Immature Gran % (Auto) 0.600, Neut % (Auto) 65.9, Lymph % (Auto) 19.2, [place] % (Auto) 9.5, Eos % (Auto) 3.8, Baso % (Auto) 1.0, Absolute Neuts (auto) 5.3, Absolute Lymphs (auto) 1.55, Nucleated RBC % 0, Sodium 139, Potassium 4.6, Chloride 109 H, Carbon Dioxide 17.9 L, Anion Gap 12, BUN 49 H, Creatinine 1.80 H, Estim Creat Clear Calc 41.70 L, Est GFR (MDRD) Non-Af 33 L, BUN/Creatinine Ratio 27.2 H, Glucose 125 H, Calcium 9.3 Micro: Microbiology 08/23/25 14:32 Bone - Great Toe Gram Stain - Final 08/23/25 14:32 Bone - Great Toe Wound Culture - Final Staphylococcus aureus Streptococcus intermedius Streptococcus parasanguinis 08/23/25 14:32 Tissue - Great Toe Gram Stain - Final 08/23/25 14:32 Tissue - Great Toe Wound Culture - Final Staphylococcus aureus Streptococcus intermedius Staphylococcus aureus#2 Streptococcus parasanguinis 08/23/25 14:32 Tissue - Aerobic & Anaerobic Swabs Gram Stain - Final 08/23/25 14:32 Tissue - Aerobic & Anaerobic Swabs Wound Culture - Final Staphylococcus aureus Streptococcus intermedius Streptococcus parasanguinis 08/23/25 01:58 Blood Culture (Wb) - Right Hand Blood Culture - Preliminary No growth in 48 hours. 08/23/25 01:47 Blood Culture (Wb) - Anticubital Left Blood Culture - Preliminary No growth in 48 hours.
[2025-08-26 14:51] VITALS: BP 137/56; PULSE 79; RESP 16; TEMP 36.8; O2SAT 96
--- NOTE | 2025-08-26 15:25 | CASEMGMT ---
RN CM into pt room, pt sitting up in bed in no distress. Pt states her did not find her crutches but she thinks he does not know where to look. Pt states she does have a walker so she does not need any DME upon dc. Pt denies further needs at this time. Noted in ID progress note that plan is for PO atb at dc.
--- NOTE | 2025-08-26 16:41 | PN.HOSP_ITS ---
Reason for Visit Chief Complaint: Worsening Right Foot Wound and Pain. Objective Data Objective Data Vital Signs: Vital Signs Temp Pulse Resp BP Pulse Ox O2 Del Method 98.2 F 79 16 137/56 H 96 Room Air 08/26/25 14:51 08/26/25 14:51 08/26/25 14:51 08/26/25 14:51 08/26/25 14:51 08/26/25 14:51 Oxygen Delivery Method Room Air Weight: 193 lb 6 oz Body Mass Index (BMI) 28.5 Intake & Output: Intake and Output for Last 24 Hours 08/24/25 08/25/25 08/26/25 23:59 23:59 23:59 Intake Total 949.5 / 949.5 680 / 680 826.13 / 826.13 Balance 949.5 / 949.5 680 / 680 826.13 / 826.13 Lab / Micro Data 08/26/25 05:20 08/26/25 05:20 Labs: Laboratory Results - last 24 hr 08/26/25 05:20: WBC 8.1, RBC 3.97 L, Hgb 11.4 L, Hct 35.8 L, MCV 90.2, MCH 28.7, MCHC 31.8 L, RDW Std Deviation 43.5, RDW Coeff of [place]ero 13.1, Plt Count 383, MPV 10.6, Immature Gran % (Auto) 0.600, Neut % (Auto) 65.9, Lymph % (Auto) 19.2, [place] % (Auto) 9.5, Eos % (Auto) 3.8, Baso % (Auto) 1.0, Absolute Neuts (auto) 5.3, Absolute Lymphs (auto) 1.55, Nucleated RBC % 0, Sodium 139, Potassium 4.6, Chloride 109 H, Carbon Dioxide 17.9 L, Anion Gap 12, BUN 49 H, Creatinine 1.80 H , Estim Creat Clear Calc 41.70 L, Est GFR (MDRD) Non-Af 33 L, BUN/Creatinine Ratio 27.2 H, Glucose 125 H, Calcium 9.3 Micro: Microbiology 08/23/25 14:32 Bone - Great Toe Gram Stain - Final 08/23/25 14:32 Bone - Great Toe Wound Culture - Final Staphylococcus aureus Streptococcus intermedius Streptococcus parasanguinis 08/23/25 14:32 Tissue - Great Toe Gram Stain - Final 08/23/25 14:32 Tissue - Great Toe Wound Culture - Final Staphylococcus aureus Streptococcus intermedius Staphylococcus aureus#2 Streptococcus parasanguinis 08/23/25 14:32 Tissue - Aerobic & Anaerobic Swabs Gram Stain - Final 08/23/25 14:32 Tissue - Aerobic & Anaerobic Swabs Wound Culture - Final Staphylococcus aureus Streptococcus intermedius Streptococcus parasanguinis 08/23/25 01:58 Blood Culture (Wb) - Right Hand Blood Culture - Preliminary No growth in 48 hours. 08/23/25 01:47 Blood Culture (Wb) - Anticubital Left Blood Culture - Preliminary No growth in 48 hours. Physical Exam Narrative Seen and examined in afternoon after the surgery. Patient had right great toe amputation on 08/23. Heart rate and blood pressure are in acceptable range. No acute issues. Physical exam General: Alert, Oriented x3, Cooperative HEENT: Atraumatic, PERRLA, EOMI, Normocephalic. Patient is legally blind. Left eye corneal opacity. Right eye: No perception of light/head movement. Oral: No Gingival or Mucosal Lesions/ Ulcerations Neck: Supple, No JVD, Negative Carotid Bruits Chest wall/Lungs: Air entry diminished in bilateral lung bases. No crepitation/rhonchi Cardiovascular: Regular rate and rhythm, Normal S1,S2, No M/G/R Abdomen: Bowel Sounds Present, Soft, Non Tender, Non-Distended : No dysuria. No renal angle tenderness. No suprapubic tenderness. Extremities: No edema, Capillary Refill Less than 3 Seconds Skin: Right great toe amputation, covered with dressing and Arpit wrap bandage. No active bleeding or drainage. Musculoskeletal: No Tenderness to Palpation of Joints or Extremities Neurological: Cranial nerves II-XII grossly intact, DTR 2+/4. Left great toe position sense is normal. Psych/Mental Status: Normal Affect, Appropriate. Assessment & Plan Assessment/Plan (1) Osteomyelitis due to type 1 diabetes mellitus: (2) Metatarsal bone fracture: QUALIFIERS: Encounter type: initial encounter Metatarsal bone: f ourth Fracture type: closed Fracture alignment: nondisplaced Laterality: r ight Qualified Code(s): S92.344A - Nondisplaced fracture of fourth metatarsal bone, right foot, initial encounter for closed fracture (3) Diabetes mellitus type 1: QUALIFIERS: Diabetes mellitus complication status: with hyperglycemia Qualified Code(s): E10.65 - Type 1 diabetes mellitus with hyperglycemia (4) Presence of insulin pump: (5) Presence of stent in coronary artery: (6) Overweight (BMI 25.0-29.9): (7) Stage 4 chronic kidney disease: PLAN: Plan 54-year-old female with history of type 1 diabetes mellitus on insulin alcohol and CKD came to ED after 1 week of trip and fall right ankle. She clipped her nails temporarily injured a small piece of skin and then started having swelling and redness necrosis and drainage with foul smell of great toe. 1. Acute osteomyelitis of great toe of right side complicated with type 1 diabetes mellitus and nonpressure chronic ulcer of right foot: Patient is being admitted on [facility] floor. X-rays of right foot soft tissue edema and swelling with fragmentation/erosive changes of the tip of the distal phalanx of the big toe suspicious for Osteomyelitis with subacute healing fractures in the 3rd and 5th metatarsal bones. Ununited fracture of the base of the second metatarsal bone with moderate osteopenia. X-ray of right ankle showed soft tissue edema and swelling over medial and lateral malleoli with detached bone fragment reduced to base of 4th and 5th metatarsal bone raising possibility of acute fracture. [employer] was consulted. Diagnosis of acute osteomyelitis therefore taken for or underwent right great toe amputation. Operative report pending. Pain controlled. On IV antibiotics vancomycin and Zosyn. Operative tissue culture was sent. Blood culture pending. 08/25: Prelim tissue culture shows gram-positive organism. Continue broad- spectrum antibiotic. ID consult requested for tomorrow 08/26 ID consult reviewed and appreciated. Path pending. Prelim tissue culture shows MSSA and strep x 2 so far. Antibiotic narrowed down to vancomycin and Unasyn. Plan on p.o. antibiotic at time of discharge. 2. DM-1; complicated with diabetic retinopathy: Well-controlled on insulin pump with suspicion of diabetic neuropathy, diabetic retinopathy with legal blindness- Continue insulin pump for now with patient previously demonstrating excellent ability to manage her blood glucose. Though on exam of foot no acute diminished sensation was found. Patient does not have perception of light or ray. 08/25: Glucose 156, relatively well, normal. On insulin pump 0.9 units/h with 1 unit bolus per 5 carbs 3. CAD; s/p STEMI with subsequent mid-RCA stent with angioplasty to LAD and proximal PDA at [facility] (~2013) on baby aspirin, clopidogrel and as needed SL NTG compounding #1 & #2 - Hold baby aspirin and clopidogrel with likely need for surgical intervention from podiatry. Give SL NTG as needed for anginal type chest pain. 4. Overweight; BMI of 29.4 KG per square meter: This admission adding to the burden of disease - Weight loss was recommended. Check TSH. This complicates her case and may hamper recovery. 5. CKD; stage IV; on dapagliflozin for renal protection followed by Dr. Hermosillo - Michell with serum creatinine of 2.12 mg/dL and BUN of 35 mg/dL with eGFR of 27 mL/min which is close to her baseline level. We will hold dapagliflozin until need for surgery is clarified. 08/24: Creatinine improving continue holding oral medications including dapagliflozin 08/25: Creatinine 1.82 gradual mild improvement. 08/26: Creatinine 1.80. 6. Essential hypertension; on ramipril and carvedilol twice daily - Continue present therapy plus give prn IV hydralazine for systolic blood pressure > 160 mmHg. 7. 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 8 history of mild concentric LVH; stage I diastolic dysfunction and normal LVEF ~65% (on last echo done here 05/2022) - Noted. Check new echocardiogram to evaluate LVEF with likely impending surgery and complicated medical history. Multiple comorbidities which include rheumatoid arthritis chronic, chronically stable asthma and history of left middle finger amputation DVT prophylaxis - SCD's only with likely impending surgical intervention. Microbiology Past 72 Hours 08/23/25 14:32 Bone - Great Toe Gram Stain - Final 08/23/25 14:32 Bone - Great Toe Wound Culture - Final Staphylococcus aureus Streptococcus intermedius Streptococcus parasanguinis 08/23/25 14:32 Tissue - Great Toe Gram Stain - Final 08/23/25 14:32 Tissue - Great Toe Wound Culture - Final Staphylococcus aureus Streptococcus intermedius Staphylococcus aureus#2 Streptococcus parasanguinis 08/23/25 14:32 Tissue - Aerobic & Anaerobic Swabs Gram Stain - Final 08/23/25 14:32 Tissue - Aerobic & Anaerobic Swabs Wound Culture - Final Staphylococcus aureus Streptococcus intermedius Streptococcus parasanguinis 08/23/25 01:58 Blood Culture (Wb) - Right Hand Blood Culture - Preliminary No growth in 48 hours. 08/23/25 01:47 Blood Culture (Wb) - Anticubital Left Blood Culture - Preliminary No growth in 48 hours. Laboratory Results 08/26/25 05:20: WBC 8.1, RBC 3.97 L, Hgb 11.4 L, Hct 35.8 L, MCV 90.2, MCH 28.7, MCHC 31.8 L, RDW Std Deviation 43.5, RDW Coeff of [place]ero 13.1, Plt Count 383, MPV 10.6, Immature Gran % (Auto) 0.600, Neut % (Auto) 65.9, Lymph % (Auto) 19.2, [place] % (Auto) 9.5, Eos % (Auto) 3.8, Baso % (Auto) 1.0, Absolute Neuts (auto) 5.3, Absolute Lymphs (auto) 1.55, Nucleated RBC % 0, Sodium 139, Potassium 4.6, Chloride 109 H, Carbon Dioxide 17.9 L, Anion Gap 12, BUN 49 H, Creatinine 1.80 H , Estim Creat Clear Calc 41.70 L, Est GFR (MDRD) Non-Af 33 L, BUN/Creatinine Ratio 27.2 H, Glucose 125 H, Calcium 9.3 Charges/Coding Visit Charges Inpatient E&M: 65229 Subs Hosp L2
[2025-08-26 21:02] VITALS: BP 129/65; PULSE 77; RESP 16; TEMP 36.8; O2SAT 98
[2025-08-26] MEDS: Ampicillin/Sulbactam 3 GM in 0.9% Normal Saline (100mL MB+) 100 ML IV (21:07)
[2025-08-26 21:14] VITALS: O2SAT 98
[2025-08-27 03:07] LABS: Hematocrit 34.4 % (37-47); Hemoglobin 11.1 g/dL (12.0-15.0); Immature Granulocytes Count 0.060 X10^3/uL (0.0-0.0); Mean Corp Hgb Conc 32.3 g/dL (32-36); Mean Corpuscular Volume 90.1 fL (81-99); Mean Platelet Vol. 10.1 fl (6.2-12.0); NRBC Flagged by Analyzer 0 % (0-5); Platelet Count 373 K/mm3 (150-450); RBC Distribution Width CV 13.2 % (11.6-14.6); RBC Distribution Width SD 43.0 fl (35.1-43.9); Red Blood Count 3.82 M/mm3 (4.2-5.4); White Blood Count 7.8 K/mm3 (4.4-11.0)
[2025-08-27 04:01] LABS: Vancomycin, Trough Level 24.3 ug/mL (5.0-15.0)
--- NOTE | 2025-08-27 04:07 | PCM.RX.CS ---
Consult Antibiotic Management Pharmacy has been consulted to manage selected antibiotic: Vancomycin Type of Intervention Type of Consult: Follow-up Suspected Infection Suspected Infection: Osteomyelitis Labs Labs: Sodium 139 mmol/L (133-145) 08/26/25 05:20 Potassium 4.6 mmol/L (3.3-5.1) 08/26/25 05:20 Chloride 109 mmol/L (98-108) H 08/26/25 05:20 Carbon Dioxide 17.9 mmol/L (21.0-32.0) L 08/26/25 05:20 Anion Gap 12 (5-15) 08/26/25 05:20 BUN 49 mg/dL (4-19) H 08/26/25 05:20 Creatinine 1.80 mg/dL (0.70-1.20) H 08/26/25 05:20 Est GFR (MDRD) Non-Af 33 (>60) L 08/26/25 05:20 BUN/Creatinine Ratio 27.2 RATIO (10-20) H 08/26/25 05:20 Glucose 125 mg/dL (70-99) H 08/26/25 05:20 Vancomycin Trough 24.3 ug/mL (5.0-15.0) H 08/27/25 02:57 Microbiology Microbiology: Microbiology 08/23/25 14:32 Bone - Great Toe Gram Stain - Final 08/23/25 14:32 Bone - Great Toe Wound Culture - Final Staphylococcus aureus Streptococcus intermedius Streptococcus parasanguinis 08/23/25 14:32 Tissue - Great Toe Gram Stain - Final 08/23/25 14:32 Tissue - Great Toe Wound Culture - Final Staphylococcus aureus Streptococcus intermedius Staphylococcus aureus#2 Streptococcus parasanguinis 08/23/25 14:32 Tissue - Aerobic & Anaerobic Swabs Gram Stain - Final 08/23/25 14:32 Tissue - Aerobic & Anaerobic Swabs Wound Culture - Final Staphylococcus aureus Streptococcus intermedius Streptococcus parasanguinis 08/23/25 01:58 Blood Culture (Wb) - Right Hand Blood Culture - Preliminary No growth in 48 hours. 08/23/25 01:47 Blood Culture (Wb) - Anticubital Left Blood Culture - Preliminary No growth in 48 hours. Dosing Weight Weight used for dosin.7 kg Estimated Creatinine Clearance Estimated Creatinine Clearance: 42 Goal Trough Goal Trough: 15-20 mcg/mL Pharmacy Plan for Drug Dosing Pharmacy Plan for Drug Dosing: Vancomycin trough level of 24.3, drawn 24hrs post-dose, was above the target range of 15-20. Will suspend current dosing and have a random vanco level drawn in 12 hours to determine further orders. Pharmacy Service will continue to monitor and adjust dosing as required. Follow-Up Labs Follow-Up Labs: Trough: Vancomycin (random) Date/Time Labs Ordered Labs to be done on [date and time ordered]: 08/27/25 @1500 (random)
[2025-08-27 05:10] VITALS: BP 116/56; PULSE 75; RESP 15; TEMP 36.9; O2SAT 97
[2025-08-27] MEDS: Ampicillin/Sulbactam 3 GM in 0.9% Normal Saline (100mL MB+) 100 ML IV ×2 (05:16→12:56)
[2025-08-27 08:00] VITALS: BP 144/65; PULSE 67; RESP 14; TEMP 36.8; O2SAT 97
[2025-08-27] MEDS: Cholecalciferol (VIT D3) 25 MCG TABLET (1,000 UNITS) 50 MCG PO (08:05)
[2025-08-27] MEDS: Magnesium Chloride 64 MG Delay Rel.Tablet 128 MG PO (08:05)
[2025-08-27] MEDS: Lactobacillis Acidophilus 1 CAP PO ×2 (08:06→12:57)
[2025-08-27] MEDS: Zinc Sulfate 50 mg zinc (220 mg) ORAL capsule PO (08:06)
[2025-08-27] MEDS: APIXABAN 2.5 MG TABLET (WCH) PO (08:07)
--- NOTE | 2025-08-27 08:51 | WOUNDNOTE ---
wound photo: right foot
--- NOTE | 2025-08-27 08:51 | WOUNDNOTE ---
wound photo: right foot
--- NOTE | 2025-08-27 08:52 | WOUNDNOTE ---
wound photo: right foot
--- NOTE | 2025-08-27 09:59 | PCM.PN.ID ---
Physical Exam Narrative Feeling better, no fever, no n/v/d, no pain in foot Const alert and no apparent distress General Appearance: cooperative Eyes Eyes Narrative: legally blind Resp normal air movement and clear to auscultation bilaterally Cardio regular rate and regular rhythm Heart Sounds: murmur GI soft to palpation, non-tender and non-distended Extremity General Extremity: Negative for edema Skin no rashes or lesions noted Skin Narrative: foot wrapped ID ID: Route of nutrition/ use of supplements: [] Nutritional Intake: [] IV Site: [] Ross Catheter: [] Assessment & Plan Assessment/Plan (1) Osteomyelitis of great toe of right foot: PLAN: Now s/p OR 08/23/[address] Henderson for R 1st toe amputation. Path pending. Surg cx with MSSA and strep x2 so far. On vanc/unasyn. Will stop vanc. Ok for one week po augmentin 875mg bid at discharge. Will follow as needed (2) Chronic kidney disease: (3) Diabetes mellitus type 1: QUALIFIERS: Diabetes mellitus complication status: with hyperglycemia Qualified Code(s): E10.65 - Type 1 diabetes mellitus with hyperglycemia
--- NOTE | 2025-08-27 10:54 | PCM.DC ---
Discharge Instructions DC O2, CPAP, BIPAP needs Home O2 Discharge instructions: No Follow Up Care Test Results: Test results from this visit will be discussed in further detail at your follow-up appointment, if applicable. Discharge Plan Admission Admit Date/Time: 08/23/25 05:07 Primary Reason for Your Visit: Right first toe acute osteomyelitis with ulcer status post amputation Attending Provider: Devante Wren Primary Care Provider: Joni Campo Consulting Providers: Shubham Henderson; Brando Garduno; Balbir Hope Discharge Orders/Prescriptions Prescriptions: New sennosides-docusate sodium [Stimulant Laxative Plus] 8.6-50 mg Tablet 2 tab PO BID PRN (Reason: Constipation.) Qty: 0 0RF Rx Instructions: Orcd-uhd-ggyailx. L.acidoph,saliva-B.bif-S.therm 175 mg Capsule 1 cap PO 2XD Qty: 0 0RF Rx Instructions: Jofe-wkt-qqjmdnp, probiotic for 1 week amoxicillin-pot clavulanate 875-125 mg tablet 1 tab PO BID 7 Days Qty: 14 0RF Continued cholecalciferol (vitamin D3) 50 mcg (2,000 unit) capsule 50 mcg PO DAILY ascorbic acid (vitamin C) 1,000 mg tablet 1 g PO DAILY (DME) pen needle, diabetic 32 gauge x 5/32 needle See Rx Instructions .ROUTE .MEDSUPPLY Qty: 50 Rx Instructions: As directed (DME) Novopen Echo Insulin Pen See Rx Instructions .ROUTE .MEDSUPPLY Qty: 1 0RF Rx Instructions: As directed aspirin [Adult Low Dose Aspirin] 81 mg tablet,delayed release (DR/EC) 81 mg PO DAILY magnesium oxide 400 mg magnesium tablet 400 mg PO DAILY nitroglycerin 0.4 mg tablet, sublingual 0.4 mg sublingual Q5M PRN (Reason: chest pain) Qty: 25 1RF Rx Instructions: do not exceed 3 doses per episode dapagliflozin propanediol [Farxiga] 10 mg tablet 10 mg PO DAILY Patient Comments: per pt Dr. cruz want her taking it until her sx carvedilol 6.25 mg tablet 3.125 mg PO BID Rx Instructions: blood pressure ramipril 5 mg capsule 10 mg PO QDAY levothyroxine 125 mcg tablet 125 mcg PO .6 days per week clopidogrel 75 mg tablet 75 mg PO DAILY Qty: 90 3RF Rx Instructions: anti platelet for stent protection insulin aspart U-100 [Novolog U-100 Insulin aspart] 100 unit/mL solution 100 unit continuous subcutaneous infusion .continuous Qty: 90 1RF Referrals / Follow Up: Joni Campo MD [Primary Care Provider, [facility]] Shubham Henderson DPM [Med Staff - Active Staff, Podiatry] - Within 1 Week Balbir Hope MD [Med Staff - Active Staff, Infectious Disease] - Within 1 Month Referral Note: As needed for infection issues Disposition Disposition (needs filled in before D/C Order can be placed): Home, Self Care
--- NOTE | 2025-08-27 11:20 | CASEMGMT ---
Noted from wound care order that will see pt in his office weekly for wound care. RN CM into pt room, pt sitting up in bed. Pt is aware of weekly appts. Pt states she feels safe to go home. She has her and son as well as other friends who are planning on assisting her as needed. Pt states her did find the crutches. Pt feels safe going home with the crutches and walker. Pt denies any further homegoing needs at this time.
[2025-08-27] MEDS: 0.9% Saline Lock 10 ML Syringe IV (12:56)
--- NOTE | 2025-08-27 13:00 | PCM.DC.SUM ---
Providers Date of Admission: 08/23/25 Date of Discharge: 08/27/25 Primary Care Physician: Dr. Joni Campo MD Consultations 08/23/25 06:28 Consult: Podiatry Routine Consulting Provider: Shubham Henderson Reason for Consult: Right Great Toe Osteomyelitis with Necrosis. EMERGENT Consult: No Notified: Yes Date Notified: 08/23/25 Time Notified: 05:13 Method of Notification: ED Physician Initiated 08/23/25 07:10 Consult: Onc/Wound/space physicist Routine Comment: Reason for Consult:: R great toe wound 08/24/25 13:07 Consult: Infectious Disease Routine Consulting Provider: Balbir Hope Reason for Consult: Left Toe OM, status post amputation for 08/26 EMERGENT Consult: No Notified: Yes Date Notified: 08/24/25 Time Notified: 13:07 Method of Notification: Text Reason For Visit: OSTEOMYELITIS OF THE RIGHT GREAT TOE WITH Diagnosis Discharge Diagnosis (1) Osteomyelitis of great toe of right foot: Status: Acute Code(s): M86.9 - Osteomyelitis, unspecified (2) Chronic kidney disease: Status: Chronic Code(s): N18.9 - Chronic kidney disease, unspecified (3) Diabetes mellitus type 1: Status: Chronic Code(s): E10.9 - Type 1 diabetes mellitus without complications Qualifiers: Diabetes mellitus complication status: with hyperglycemia Qualified Code(s): E10.65 - Type 1 diabetes mellitus with hyperglycemia Plan 54-year-old female with history of type 1 diabetes mellitus on insulin alcohol and CKD came to ED after 1 week of trip and fall right ankle. She clipped her nails temporarily injured a small piece of skin and then started having swelling and redness necrosis and drainage with foul smell of great toe. 1. Acute osteomyelitis of great toe of right side complicated with type 1 diabetes mellitus and nonpressure chronic ulcer of right foot: [facility] X-rays of right foot soft tissue edema and swelling with fragmentation/erosive changes of the tip of the distal phalanx of the big toe suspicious for Osteomyelitis with subacute healing fractures in the 3rd and 5th metatarsal bones. Ununited fracture of the base of the second metatarsal bone with moderate osteopenia. X-ray of right ankle showed soft tissue edema and swelling over medial and lateral malleoli with detached bone fragment reduced to base of 4th and 5th metatarsal bone raising possibility of acute fracture. Sporting Goods Salesperson was consulted. Diagnosis of acute osteomyelitis therefore taken for or underwent right great toe amputation. Operative report pending. Pain controlled. On IV antibiotics vancomycin and Zosyn. Operative tissue culture was sent. Blood culture pending. 08/25: Prelim tissue culture shows gram-positive organism. Continue broad-spectrum antibiotic. ID consult requested for tomorrow 08/26 ID consult reviewed and appreciated. Path pending. Prelim tissue culture shows MSSA and strep x 2 so far. Antibiotic narrowed down to Unasyn. Vancomycin was discontinued. Plan on p.o. antibiotic at time of discharge. 08/27: ID follow reviewed. Vancomycin was discontinued yesterday. Recommended 1 week of Augmentin 875 mg p.o. twice daily and prescription given. Follow-up with podiatry Dr. Henderson in 1 week 2. DM-1; complicated with diabetic retinopathy: Well-controlled on insulin pump with suspicion of diabetic neuropathy, diabetic retinopathy with legal blindness- Continue insulin pump for now with patient previously demonstrating excellent ability to manage her blood glucose. Though on exam of foot no acute diminished sensation was found. Patient does not have perception of light or ray. 08/25: Glucose 156, relatively well, normal. On insulin pump 0.9 units/h with 1 unit bolus per 5 carbs 08/27: Glucoses controlled on insulin pump. 3. CAD; s/p STEMI with subsequent mid-RCA stent with angioplasty to LAD and proximal PDA at [facility] (~2013) on baby aspirin, clopidogrel and as needed SL NTG compounding #1 & #2 - Hold baby aspirin and clopidogrel with likely need for surgical intervention from podiatry. Give SL NTG as needed for anginal type chest pain. 4. Overweight; BMI of 29.4 KG per square meter: This admission adding to the burden of disease - Weight loss was recommended. Check TSH. This complicates her case and may hamper recovery. 5. CKD; stage IV; on dapagliflozin for renal protection followed by Dr. Hermosillo - Stable with serum creatinine of 2.12 mg/dL and BUN of 35 mg/dL with eGFR of 27 mL/min which is close to her baseline level. We will hold dapagliflozin until need for surgery is clarified. 08/24: Creatinine improving continue holding oral medications including dapagliflozin 08/25: Creatinine 1.82 gradual mild improvement. 08/26: Creatinine 1.80. 6. Essential hypertension; on ramipril and carvedilol twice daily - Continue present therapy plus give prn IV hydralazine for systolic blood pressure > 160 mmHg. 7. 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 8 history of mild concentric LVH; stage I diastolic dysfunction and normal LVEF ~65% (on last echo done here 05/2022) - Noted. Check new echocardiogram to evaluate LVEF with likely impending surgery and complicated medical history. Multiple comorbidities which include rheumatoid arthritis chronic, chronically stable asthma and history of left middle finger amputation DVT prophylaxis - SCD's only with likely impending surgical intervention. Discharge medication reconciliation done. Discharge follow-up instructions completed. Discharge process discussed with the patient and all questions were answered to patient's satisfaction. Follow with PCP in 1 to 2 weeks Total time spent, exact 35 minutes on discharge meds reconciliation, examination, coordination of care with nurses and ancillary staff, review of imaging and blood test and discussion with the patient on follow-up instructions. Medications at Discharge Home Medications cholecalciferol (vitamin D3) 50 mcg (2,000 unit) capsule 50 mcg PO DAILY 10/31/20 ascorbic acid (vitamin C) 1,000 mg tablet 1 g PO DAILY 04/16/21 Novopen Echo (insulin admin supplies) #1 ea 05/01/21 pen needle, diabetic 32 gauge x #50 ea 05/01/21 aspirin 81 mg tablet,delayed release (Adult Low Dose Aspirin) 81 mg PO DAILY 03/08/22 magnesium oxide 400 mg PO DAILY 01/17/23 nitroglycerin 0.4 mg sublingual tablet 0.4 mg sublingual Q5M PRN chest pain #25 tabs 01/17/23 dapagliflozin propanediol 10 mg tablet (Farxiga) 10 mg PO DAILY kidney 07/05/23 carvedilol 6.25 mg tablet 3.125 mg PO BID Needs SCRIPTTALK LABELS: pt is blind 11/15/23 ramipril 5 mg capsule 10 mg PO QDAY 02/28/24 levothyroxine 125 mcg tablet 125 mcg PO .6 days per week 08/01/25 clopidogrel 75 mg tablet 75 mg PO DAILY NEEDS SCRIPTTALK LABELS: patient is blind #90 tabs 08/07/25 insulin aspart U-100 100 unit/mL subcutaneous solution (Novolog U-100 Insulin aspart) 100 unit continuous subcutaneous infusion .continuous #90 mL 08/12/25 L.acidophil,salivari-Bifido bifidum-Strep thermoph 175 mg capsule 1 cap PO 2XD #0 caps 08/27/25 amoxicillin 875 mg-potassium clavulanate 125 mg tablet 1 tab PO BID 1 week #14 tabs 08/27/25 sennosides 8.6 mg-docusate sodium 50 mg tablet (Stimulant Laxative Plus) 2 tab PO BID PRN Constipation. #0 tabs 08/27/25 Hospital Course Summary of Care Provided Hospital Course: Microbiology Past 72 Hours 08/23/25 14:32 Bone - Great Toe Gram Stain - Final 08/23/25 14:32 Bone - Great Toe Wound Culture - Final Staphylococcus aureus Streptococcus intermedius Streptococcus parasanguinis 08/23/25 14:32 Bone - Great Toe Anaerobic Culture - Preliminary Gram negative annalisa Anaerobic cocci 08/23/25 14:32 Tissue - Great Toe Gram Stain - Final 08/23/25 14:32 Tissue - Great Toe Wound Culture - Final Staphylococcus aureus Streptococcus intermedius Staphylococcus aureus#2 Streptococcus parasanguinis 08/23/25 14:32 Tissue - Great Toe Anaerobic Culture - Preliminary Gram negative annalisa Gram positive organism 08/23/25 14:32 Tissue - Aerobic & Anaerobic Swabs Gram Stain - Final 08/23/25 14:32 Tissue - Aerobic & Anaerobic Swabs Wound Culture - Final Staphylococcus aureus Streptococcus intermedius Streptococcus parasanguinis 08/23/25 14:32 Tissue - Aerobic & Anaerobic Swabs Anaerobic Culture - Preliminary Gram negative annalisa 08/23/25 01:58 Blood Culture (Wb) - Right Hand Blood Culture - Preliminary No growth in 48 hours. 08/23/25 01:47 Blood Culture (Wb) - Anticubital Left Blood Culture - Preliminary No growth in 48 hours. Laboratory Results 08/27/25 02:57: WBC 7.8, RBC 3.82 L, Hgb 11.1 L, Hct 34.4 L, MCV 90.1, MCH 29.1, MCHC 32.3, RDW Std Deviation 43.0, RDW Coeff of Lucero 13.2, Plt Count 373, MPV 10.1, Immature Gran % (Auto) 0.800, Neut % (Auto) 69.2, Lymph % (Auto) 15.8 L, Centre % (Auto) 10.6 H, Eos % (Auto) 2.8, Baso % (Auto) 0.8, Absolute Neuts (auto) 5.4, Absolute Lymphs (auto) 1.24, Nucleated RBC % 0, Vancomycin Trough 24.3 H Physical Exam Narrative Seen and examined Patient had right great toe amputation on 08/23. Heart rate and blood pressure are in normal range. No acute issues. Physical exam General: Alert, Oriented x3, Cooperative HEENT: Atraumatic, PERRLA, EOMI, Normocephalic. Patient is legally blind. Left eye corneal opacity. Both eyes: No perception of light/head movement. Oral: No Gingival or Mucosal Lesions/ Ulcerations Neck: Supple, No JVD, Negative Carotid Bruits Chest wall/Lungs: Air entry diminished in bilateral lung bases. No crepitation/rhonchi Cardiovascular: Regular rate and rhythm, Normal S1,S2, No M/G/R Abdomen: Bowel Sounds Present, Soft, Non Tender, Non-Distended : No dysuria. No renal angle tenderness. No suprapubic tenderness. Extremities: No edema, Capillary Refill Less than 3 Seconds Skin: Right great toe amputation, covered with dressing and Arpit wrap bandage. No active bleeding or drainage. Healing well. No acute tenderness. Musculoskeletal: No Tenderness to Palpation of Joints or Extremities Neurological: Cranial nerves II-XII grossly intact, DTR 2+/4. Left great toe position sense is normal. Psych/Mental Status: Normal Affect, Appropriate. Weight / BMI Weight Weight: 193 lb 6 oz Body Mass Index (BMI) 28.5 ABG / Lab / Microbiology Data 08/27/25 02:57 08/26/25 05:20 Laboratory: Laboratory Results - last 24 hr 08/27/25 02:57: WBC 7.8, RBC 3.82 L, Hgb 11.1 L, Hct 34.4 L, MCV 90.1, MCH 29.1, MCHC 32.3, RDW Std Deviation 43.0, RDW Coeff of Lucero 13.2, Plt Count 373, MPV 10.1, Immature Gran % (Auto) 0.800, Neut % (Auto) 69.2, Lymph % (Auto) 15.8 L, Centre % (Auto) 10.6 H, Eos % (Auto) 2.8, Baso % (Auto) 0.8, Absolute Neuts (auto) 5.4, Absolute Lymphs (auto) 1.24, Nucleated RBC % 0, Vancomycin Trough 24.3 H Microbiology: Microbiology 08/23/25 14:32 Bone - Great Toe Gram Stain - Final 08/23/25 14:32 Bone - Great Toe Wound Culture - Final Staphylococcus aureus Streptococcus intermedius Streptococcus parasanguinis 08/23/25 14:32 Bone - Great Toe Anaerobic Culture - Preliminary Gram negative annalisa Anaerobic cocci 08/23/25 14:32 Tissue - Great Toe Gram Stain - Final 08/23/25 14:32 Tissue - Great Toe Wound Culture - Final Staphylococcus aureus Streptococcus intermedius Staphylococcus aureus#2 Streptococcus parasanguinis 08/23/25 14:32 Tissue - Great Toe Anaerobic Culture - Preliminary Gram negative annalisa Gram positive organism 08/23/25 14:32 Tissue - Aerobic & Anaerobic Swabs Gram Stain - Final 08/23/25 14:32 Tissue - Aerobic & Anaerobic Swabs Wound Culture - Final Staphylococcus aureus Streptococcus intermedius Streptococcus parasanguinis 08/23/25 14:32 Tissue - Aerobic & Anaerobic Swabs Anaerobic Culture - Preliminary Gram negative annalisa 08/23/25 01:58 Blood Culture (Wb) - Right Hand Blood Culture - Preliminary No growth in 48 hours. 08/23/25 01:47 Blood Culture (Wb) - Anticubital Left Blood Culture - Preliminary No growth in 48 hours. D/C Instructions DC O2, CPAP, BIPAP Needs Home O2 Discharge instructions: No Meaningful Use Info Meaningful Use Meaningful Use Diagnoses (Choose all that apply): None applicable Discharge Plan Admission Admit Date/Time: 08/23/25 05:07 Primary Reason for Your Visit: Right first toe acute osteomyelitis with ulcer status post amputation Attending Provider: Devante Wren Primary Care Provider: Joni Campo Consulting Providers: Shubham Henderson; Brando Garduno; Balbir Hope Discharge Orders/Prescriptions Prescriptions: New sennosides-docusate sodium [Stimulant Laxative Plus] 8.6-50 mg Tablet 2 tab PO BID PRN (Reason: Constipation.) Qty: 0 0RF Rx Instructions: Sjbb-oyq-ntbinge. L.acidoph,saliva-B.bif-S.therm 175 mg Capsule 1 cap PO 2XD Qty: 0 0RF Rx Instructions: Pazl-yqh-tzizlrx, probiotic for 1 week amoxicillin-pot clavulanate 875-125 mg tablet 1 tab PO BID 7 Days Qty: 14 0RF Continued cholecalciferol (vitamin D3) 50 mcg (2,000 unit) capsule 50 mcg PO DAILY ascorbic acid (vitamin C) 1,000 mg tablet 1 g PO DAILY (DME) pen needle, diabetic 32 gauge x 5/32 needle See Rx Instructions .ROUTE .MEDSUPPLY Qty: 50 Rx Instructions: As directed (DME) Novopen Echo Insulin Pen See Rx Instructions .ROUTE .MEDSUPPLY Qty: 1 0RF Rx Instructions: As directed aspirin [Adult Low Dose Aspirin] 81 mg tablet,delayed release (DR/EC) 81 mg PO DAILY magnesium oxide 400 mg magnesium tablet 400 mg PO DAILY nitroglycerin 0.4 mg tablet, sublingual 0.4 mg sublingual Q5M PRN (Reason: chest pain) Qty: 25 1RF Rx Instructions: do not exceed 3 doses per episode dapagliflozin propanediol [Farxiga] 10 mg tablet 10 mg PO DAILY Patient Comments: per pt Dr. cruz want her taking it until her sx carvedilol 6.25 mg tablet 3.125 mg PO BID Rx Instructions: blood pressure ramipril 5 mg capsule 10 mg PO QDAY levothyroxine 125 mcg tablet 125 mcg PO .6 days per week clopidogrel 75 mg tablet 75 mg PO DAILY Qty: 90 3RF Rx Instructions: anti platelet for stent protection insulin aspart U-100 [Novolog U-100 Insulin aspart] 100 unit/mL solution 100 unit continuous subcutaneous infusion .continuous Qty: 90 1RF Referrals / Follow Up: Joni Campo MD [Primary Care Provider, Family Practice] Shubham Henderson DPM [Med Staff - Active Staff, Podiatry] - Within 1 Week Balbir Hope MD [Med Staff - Active Staff, Infectious Disease] - Within 1 Month Referral Note: As needed for infection issues Disposition Disposition (needs filled in before D/C Order can be placed): Home, Self Care Charges/Coding Visit Charges Inpatient E&M: 10733 Disch Hosp >30min
[2025-08-27 13:03] VITALS: BP 129/68; PULSE 70; RESP 12; TEMP 36.6; O2SAT 98
--- NOTE | 2025-08-27 13:37 | PHA.DC.MC.R ---
Pharmacy [facility] Counseling Pharmacy Service has performed discharge medication reconciliation and counseling for this patient. The patient's discharge medication list was reviewed for discrepancies and discrepancies were resolved. The patient was counseled on the following discharge medications and changes in medications for homegoing were reviewed. The Reason for Use, instructions for use, and potential side effects were reviewed for all new medications. The patient's questions regarding all of their medications were answered. 1. Amoxicillin/clavulanate 875/125 mg PO BID X 7 days 2. OTC probiotic 3. Senna/docusate 2 tablets PO BID PRN constipation The patient was able to verbally demonstrate an understanding of their discharge medications. Medications at Discharge Home Medications cholecalciferol (vitamin D3) 50 mcg (2,000 unit) capsule 50 mcg PO DAILY 10/31/20 ascorbic acid (vitamin C) 1,000 mg tablet 1 g PO DAILY 04/16/21 Novopen Echo (insulin admin supplies) #1 ea 05/01/21 pen needle, diabetic 32 gauge x #50 ea 05/01/21 aspirin 81 mg tablet,delayed release (Adult Low Dose Aspirin) 81 mg PO DAILY 03/08/22 magnesium oxide 400 mg PO DAILY 01/17/23 nitroglycerin 0.4 mg sublingual tablet 0.4 mg sublingual Q5M PRN chest pain #25 tabs 01/17/23 dapagliflozin propanediol 10 mg tablet (Farxiga) 10 mg PO DAILY kidney 07/05/23 carvedilol 6.25 mg tablet 3.125 mg PO BID Needs SCRIPTTALK LABELS: pt is blind 11/15/23 ramipril 5 mg capsule 10 mg PO QDAY 02/28/24 levothyroxine 125 mcg tablet 125 mcg PO .6 days per week 08/01/25 clopidogrel 75 mg tablet 75 mg PO DAILY NEEDS SCRIPTTALK LABELS: patient is blind #90 tabs 08/07/25 insulin aspart U-100 100 unit/mL subcutaneous solution (Novolog U-100 Insulin aspart) 100 unit continuous subcutaneous infusion .continuous #90 mL 08/12/25 L.acidophil,salivari-Bifido bifidum-Strep thermoph 175 mg capsule 1 cap PO 2XD #0 caps 08/27/25 amoxicillin 875 mg-potassium clavulanate 125 mg tablet 1 tab PO BID 1 week #14 tabs 08/27/25 sennosides 8.6 mg-docusate sodium 50 mg tablet (Stimulant Laxative Plus) 2 tab PO BID PRN Constipation. #0 tabs 08/27/25
== END 2025-08-27 14:46 | disposition home or self-care (01) | DRG 617 ==
LOC: ED 05:18 → MS3 05:52
PROVIDERS: Student in an Organized Health Care Education/Training Program; Admitting Provider Internal Medicine; Emergency Provider Emergency Medicine; PCP Family Medicine; Visit Provider Internal Medicine
PROC: 0Y6P0Z0 Detachment at Right 1st Toe, Complete, Open Approach (ICD-10-PCS; principal; 2025-08-23 12:15)
DX: E10.69 Type 1 diabetes mellitus with other specified complication (principal); M86.171 Other acute osteomyelitis, right ankle and foot; L97.514 Non-pressure chronic ulcer of other part of right foot with necrosis of bone; N18.4 Chronic kidney disease, stage 4 (severe); M06.9 Rheumatoid arthritis, unspecified; E10.65 Type 1 diabetes mellitus with hyperglycemia; E03.9 Hypothyroidism, unspecified; E06.3 Autoimmune thyroiditis; J45.909 Unspecified asthma, uncomplicated; I12.9 Hypertensive chronic kidney disease with stage 1 through stage 4 chronic kidney disease, or unspecified chronic kidney disease; E10.22 Type 1 diabetes mellitus with diabetic chronic kidney disease; Z79.4 Long term (current) use of insulin; E78.2 Mixed hyperlipidemia; I25.10 Atherosclerotic heart disease of native coronary artery without angina pectoris; E10.319 Type 1 diabetes mellitus with unspecified diabetic retinopathy without macular edema; E10.621 Type 1 diabetes mellitus with foot ulcer; E10.42 Type 1 diabetes mellitus with diabetic polyneuropathy; I25.2 Old myocardial infarction; Z89.022 Acquired absence of left finger(s); S92.344A Nondisplaced fracture of fourth metatarsal bone, right foot, initial encounter for closed fracture; W01.0XXA Fall on same level from slipping, tripping and stumbling without subsequent striking against object, initial encounter; Z79.890 Hormone replacement therapy; Z79.82 Long term (current) use of aspirin; Z82.49 Family history of ischemic heart disease and other diseases of the circulatory system; Z95.5 Presence of coronary angioplasty implant and graft; Z79.84 Long term (current) use of oral hypoglycemic drugs; Z86.16 Personal history of COVID-19; Z68.29 Body mass index [BMI] 29.0-29.9, adult; E66.3 Overweight; Z83.3 Family history of diabetes mellitus; Z96.41 Presence of insulin pump (external) (internal); M85.879 Other specified disorders of bone density and structure, unspecified ankle and foot; Z90.49 Acquired absence of other specified parts of digestive tract
CPT/HCPCS: 36415; 73610; 73630; 73660; 76000; 80048; 80061; 80202; 82962; 83036; 83605; 84145; 84443; 85025; 87040; 87070; 87075; 87077; 87102; 87176; 87186; 87205; 87206; 88305; 88311; 93306; 97162; 97166; 97530; 97802; 99284; Q9957; A4216; J0295; J2405